=== PATIENT | female | born 1940 | race Caucasian/White ===

== ENCOUNTER → 2017-06-07 | Outpatient (CLI) | payer MEDICARE, BC ==
--- NOTE | 2017-06-07 15:28 | US ---
EXAMINATION TYPE: US pelvic complete DATE OF EXAM: 06/07/2017 COMPARISON: NONE CLINICAL HISTORY: 76-year-old female R19.00 pelvic mass. Status post KODY, BSO, patient states for pel gisselle mass that doctor palpated, large habitus, she has an obvious abd wall hernia inferior and rt of t he umbilicus TECHNIQUE: Transabdominal (TA) FINDINGS: Orthopedic Technician notes: Status post KODY/BSO. Limited TA pelvic scan, wnl, no free fluid seen, vag cuff wn l. Initial scanning over the obvious abd wall bulge. 2.2cm wide defect in the abdominal wall with a 10. 1 x 4.1 x 8.9 non-peristalsing hernia. Some internal fluid portions are noted. IMPRESSION: 1. No pelvic free fluid. Status post hysterectomy. 2. Targeted scanning along the patient's lower abdominal bulge shows a 10.1 cm nonperistalsing hernia through a 2.2 cm wide abdominal wall defect. There is suggestion of some fluid within the hernia sac . Correlate for hernia incarceration.
== END | disposition home or self-care (01) ==
LOC: RADUSWWP 14:26
PROVIDERS: ATTEND Internal Medicine
DX: K43.6 Other and unspecified ventral hernia with obstruction, without gangrene (principal); J44.9 Chronic obstructive pulmonary disease, unspecified; G47.33 Obstructive sleep apnea (adult) (pediatric); E11.9 Type 2 diabetes mellitus without complications; Z90.710 Acquired absence of both cervix and uterus
CPT/HCPCS: 76857

== ENCOUNTER 2020-09-25 09:09 | Emergency (ER) | payer MEDICARE, BC ==
[2020-09-25 09:37] LABS: Glucose,Whole Blood 104 mg/dL (75-99)
--- NOTE | 2020-09-25 09:43 | ED ---
General Adult HPI - General Chief complaint: Recheck/Abnormal Lab/Rx Stated complaint: Low Sugar, Poss Seizure Time Seen by Provider: 09/25/20 09:32 Source: patient, family, RN notes reviewed, old records reviewed Mode of arrival: wheelchair Limitations: no limitations - History of Present Illness Initial comments: 79-year-old female, insulin-dependent diabetic presenting with hypoglycemia. Patient had taken her normal morning insulin after a blood sugar reading of 200. She did not eatany breakfast. She began feeling shaky and became diaphoretic. They were in the car driving and stopped [place] [employer] and the blood sugar was 40. She was given oral glucose. She states she is feeling better. She denies oral hypoglycemic medications. She denies any recent illness, no chest pain or dyspnea. No abdominal pain nausea or vomiting. - Related Data Home Medications Medication Instructions Recorded Confirmed ALPRAZolam [Alprazolam Odt] 0.25 mg PO HS 07/15/14 07/19/15 Albuterol Inhaler (Mhu) [Ventolin 1 - 2 puff INHALATION Q4-6H PRN 07/15/14 07/19/15 Inhaler] Atorvastatin [Lipitor] 20 mg PO HS 07/15/14 07/19/15 Colesevelam [Welchol] 3,750 mg PO AC-BRKFST 07/15/14 07/19/15 Digoxin [Lanoxin] 125 mcg PO DAILY 07/15/14 07/19/15 Esomeprazole Magnesium [NexIUM] 40 mg PO DAILY 07/15/14 07/19/15 Fluticasone/Salmeterol [Advair 1 puff INHALATION Q12HR 07/15/14 07/19/15 100-50 Diskus] Gabapentin [Neurontin] 300 mg PO BID 07/15/14 07/19/15 Ipratropium Nebulized [Atrovent 0.5 mg INHALATION Q6HR 07/15/14 07/19/15 Nebulized 0.2 MG/ML] Pioglitazone HCl [Actos] 30 mg PO DAILY 07/15/14 07/19/15 Propafenone HCl [Rythmol] 240 mg PO DAILY 07/15/14 07/19/15 Quinapril HCl [Accupril] 40 mg PO DAILY 07/15/14 07/19/15 Sertraline HCl [Zoloft] 100 mg PO DAILY 07/15/14 07/19/15 Verapamil HCl [Verapamil ER] 240 mg PO DAILY 07/15/14 07/19/15 glyBURIDE [Diabeta] 10 mg PO AC-BID 07/15/14 07/19/15 metFORMIN HCL [Glucophage] 500 mg PO BID 07/15/14 07/19/15 Buprenorphine [Butrans] 1 each TRANSDERM WEEKLY 07/19/15 07/19/15 Cefuroxime Axetil [Cefuroxime] 500 mg PO BID 07/19/15 07/19/15 Previous Rx's Medication Instructions Recorded Hydrocodone/Acetaminophen [[place] 1 each PO Q4HR PRN #20 tab 07/15/14 5-325] Ciprofloxacin HCl [Cipro] 500 mg PO Q12HR #14 tablet 07/20/15 Ondansetron Odt [Zofran ODT] 4 mg PO Q8HR PRN #20 tab 07/20/15 Allergies Allergy/AdvReac Type Severity Reaction Status Date / Time diclofenac sodium Allergy Unknown Verified 09/25/20 09:26 [From [facility]] Review of Systems ROS Statement: Those systems with pertinent positive or pertinent negative responses have been documented in the HPI. ROS Other: All systems not noted in ROS Statement are negative. Past Medical History Past Medical History: COPD, Diabetes Mellitus, Hyperlipidemia, Hypertension Additional Past Medical History / Comment(s): spinal stenosis, knee pain, left ear infection History of Any Multi-Drug Resistant Organisms: None Reported Past Surgical History: Appendectomy, Cholecystectomy, Hysterectomy, Orthopedic Surgery Additional Past Surgical History / Comment(s): cervical laminectomy Past Psychological History: Depression Smoking Status: Never smoker Past Alcohol Use History: Occasional Past Drug Use History: None Reported General Exam Limitations: no limitations General appearance: alert, in no apparent distress Head exam: Present: atraumatic, normocephalic Eye exam: Present: normal appearance, PERRL ENT exam: Present: normal exam Neck exam: Present: normal inspection. Absent: tenderness, meningismus Respiratory exam: Present: normal lung sounds bilaterally. Absent: respiratory distress, wheezes Cardiovascular Exam: Present: regular rate, irregular rhythm GI/Abdominal exam: Present: soft. Absent: distended, tenderness, guarding Extremities exam: Present: normal inspection, normal capillary refill. Absent: pedal edema Neurological exam: Present: alert, oriented X3, CN II-XII intact. Absent: motor sensory deficit Psychiatric exam: Present: normal affect, normal mood Skin exam: Present: warm, dry, intact. Absent: cyanosis, diaphoretic Course Vital Signs 09/25/20 09:22 Temperature 98.1 F Pulse Rate 104 H Respiratory 18 Rate O2 Sat by Pulse 98 Oximetry Medical Decision Making - Medical Decision Making 79-year-old female with hypoglycemia secondary to taking insulin and not eating. Patient had oral glucose and was able to eat in the emergency department. She is feeling much better, no symptoms. Blood sugar is 100, this is stable. She will closely monitor her blood glucose over the next several hours. She will follow-up with her primary care physician regarding insulin dosing. - Lab Data Result diagrams: 09/25/20 09:52 09/25/20 09:52 Lab Results 09/25/20 09/25/20 09/25/20 Range/Units 09:32 09:52 09:52 WBC 11.8 H (3.8-10.6) k/uL RBC 4.58 (3.80-5.40) m/uL Hgb 13.8 (11.4-16.0) gm/dL Hct 43.9 (34.0-46.0) % MCV 95.8 (80.0-100.0) fL MCH 30.2 (25.0-35.0) pg MCHC 31.5 (31.0-37.0) g/dL RDW 14.1 (11.5-15.5) % Plt Count 245 (150-450) k/uL Neutrophils % 73 % Lymphocytes % 16 % Monocytes % 5 % Eosinophils % 4 % Basophils % 1 % Neutrophils # 8.7 H (1.3-7.7) k/uL Lymphocytes # 1.9 (1.0-4.8) k/uL Monocytes # 0.6 (0-1.0) k/uL Eosinophils # 0.4 (0-0.7) k/uL Basophils # 0.1 (0-0.2) k/uL Sodium 142 (137-145) mmol/L Potassium 3.8 (3.5-5.1) mmol/L Chloride 106 (98-107) mmol/L Carbon Dioxide 28 (22-30) mmol/L Anion Gap 8 mmol/L BUN 24 H (7-17) mg/dL Creatinine 1.22 H (0.52-1.04) mg/dL Est GFR (CKD-EPI)AfAm 49 (>60 ml/min/1.73 sqM) Est GFR (CKD-EPI)NonAf 43 (>60 ml/min/1.73 sqM) Glucose 84 (74-99) mg/dL POC Glucose (mg/dL) 104 H (75-99) mg/dL POC Glu User Experience Researcher ID Cathleen Engel Calcium 9.1 (8.4-10.2) mg/dL 09/25/20 Range/Units 10:19 WBC (3.8-10.6) k/uL RBC (3.80-5.40) m/uL Hgb (11.4-16.0) gm/dL Hct (34.0-46.0) % MCV (80.0-100.0) fL MCH (25.0-35.0) pg MCHC (31.0-37.0) g/dL RDW (11.5-15.5) % Plt Count (150-450) k/uL Neutrophils % % Lymphocytes % % Monocytes % % Eosinophils % % Basophils % % Neutrophils # (1.3-7.7) k/uL Lymphocytes # (1.0-4.8) k/uL Monocytes # (0-1.0) k/uL Eosinophils # (0-0.7) k/uL Basophils # (0-0.2) k/uL Sodium (137-145) mmol/L Potassium (3.5-5.1) mmol/L Chloride (98-107) mmol/L Carbon Dioxide (22-30) mmol/L Anion Gap mmol/L BUN (7-17) mg/dL Creatinine (0.52-1.04) mg/dL Est GFR (CKD-EPI)AfAm (>60 ml/min/1.73 sqM) Est GFR (CKD-EPI)NonAf (>60 ml/min/1.73 sqM) Glucose (74-99) mg/dL POC Glucose (mg/dL) 101 H (75-99) mg/dL POC Glu User Experience Researcher ID Maren Cathleen Calcium (8.4-10.2) mg/dL Disposition Clinical Impression: Hypoglycemia Disposition: HOME SELF-CARE Condition: Fair Instructions (If sedation given, give patient instructions): Hypoglycemia in a Person with Diabetes (ED) Is patient prescribed a controlled substance at d/c from ED?: No Referrals: Cedrick Ruiz MD [Primary Care Provider] - 1-2 days Time of Disposition: 10:31
[2020-09-25 10:00] LABS: Basophils # (A) 0.1 k/uL (0-0.2); Basophils % (A) 1 %; Eosinophils # (A) 0.4 k/uL (0-0.7); Eosinophils % (A) 4 %; HCT 43.9 % (34.0-46.0); HGB 13.8 gm/dL (11.4-16.0); Lymphocytes # (A) 1.9 k/uL (1.0-4.8); Lymphocytes % (A) 16 %; MCH 30.2 pg (25.0-35.0); MCHC 31.5 g/dL (31.0-37.0); MCV 95.8 fL (80.0-100.0); Mean Platelet Volume 7.2; Monocytes # (A) 0.6 k/uL (0-1.0); Monocytes % (A) 5 %; Neutrophils # (A) 8.7 k/uL (1.3-7.7); Neutrophils % (A) 73 %; Platelet Count 245 k/uL (150-450); RBC 4.58 m/uL (3.80-5.40); RDW 14.1 % (11.5-15.5); WBC 11.8 k/uL (3.8-10.6)
[2020-09-25 10:10] LABS: Calcium 9.1 mg/dL (8.4-10.2); Potassium 3.8 mmol/L (3.5-5.1)
[2020-09-25 10:20] LABS: Glucose,Whole Blood 101 mg/dL (75-99)
[2020-09-25 10:51] VITALS: BP 143/79; PULSE 62; RESP 16; TEMP 97.9
== END 2020-09-25 10:52 | disposition home or self-care (01) ==
LOC: EC 09:09
DX: E11.649 Type 2 diabetes mellitus with hypoglycemia without coma (principal); E78.5 Hyperlipidemia, unspecified; I10 Essential (primary) hypertension; F32.9 Major depressive disorder, single episode, unspecified; J44.9 Chronic obstructive pulmonary disease, unspecified; Z79.51 Long term (current) use of inhaled steroids; Z79.84 Long term (current) use of oral hypoglycemic drugs; Z79.899 Other long term (current) drug therapy; Z88.8 Allergy status to other drugs, medicaments and biological substances
CPT/HCPCS: 36415; 80048; 85025; 99285

== ENCOUNTER → 2021-01-08 | Outpatient (CLI) | payer MEDICARE, BC ==
--- NOTE | 2021-01-09 11:01 | MM ---
Reason for exam: additional evaluation requested from prior study. History: Patient has history of other cancer at age 72. Family history of breast cancer in mother at age 47. Lumpectomy of the right breast, 2011. Lumpectomy of the right breast, 1992. Radiation therapy of the right breast, 1992. Took hormonal contraceptives for 2 months beginning at age 27. Physical Findings: Nurse did not find any significant physical abnormalities on exam. MG 3D Diag Mammo W/Cad [facility] Bilateral CC and MLO view(s) were taken. No prior studies available for comparison. Previous mammotome biopsy in the right breast. Benign oil cyst calcifications bilaterally. Post surgical deformity and post therapy change right breast. 3.2cm partially visualized high density round structure posteriorly seen to be laterally located based on 3D images but could not be included on the CC view. These results were verbally communicated with the patient and result sheet given to the patient on 01/08/21. ASSESSMENT: Incomplete: need additional imaging evaluation, BI-RAD 0 RECOMMENDATION: Ultrasound of the right breast.
--- NOTE | 2021-01-09 11:09 | USB ---
Reason for exam: additional evaluation requested from abnormal screening. History: Patient has history of other cancer at age 72. Family history of breast cancer in mother at age 47. Lumpectomy of the right breast, 2011. Lumpectomy of the right breast, 1992. Radiation therapy of the right breast, 1992. Took hormonal contraceptives for 2 months beginning at age 27. US Breast RT Right complete breast ultrasound includes all four quadrants, the retroareolar region and axilla. Finding demonstrates a 3.2 x 2.5 x 3.1cm hypoechoic lesion at 10-11 o'clock corresponds to the mammographic finding. Biopsy recommended. Patient with history, two prior concerns in the same breast. Outside priors not available. These results were verbally communicated with the patient and result sheet given to the patient on 01/08/21. ASSESSMENT: Suspicious, BI-RAD 4 RECOMMENDATION: Ultrasound core biopsy of the right breast. Called Dr. Ruiz's office with mammographic findings and has scheduled an appointment for the patient for 02/06/21 at 10:[address] Kemp. Biopsy scheduled for 02/06/21 at 1:00. PRELIMINARY REPORT CALLED AND FAXED TO DR. KEMP ON 01/09/21.
== END | disposition home or self-care (01) ==
LOC: RADMAMWWP 14:47
PROVIDERS: ATTEND Internal Medicine
DX: R92.8 Other abnormal and inconclusive findings on diagnostic imaging of breast (principal); Z85.3 Personal history of malignant neoplasm of breast
CPT/HCPCS: 77066; 76641; G0279; 77062

== ENCOUNTER → 2021-02-06 | Outpatient (CLI) | payer MEDICARE, BC ==
[2021-02-06 10:18] VITALS: BP 144/82; RESP 20; TEMP 98.3
--- NOTE | 2021-02-06 10:57 | P.GSHP ---
History of Present Illness H&P Date: 02/06/21 Chief Complaint: mammographic abnormality right breast Preeti is a 80 year old white female seen in consultation for Dr. Flores. She had a bilateral diagnostic mammogram on . This revealed a postsurgical deformity and post therapy change in the right breast. 3.2 cm partially visualized high-density round structure was seen. An ultrasound of the right breast was recommended. Ultrasound recommended a 3.2 x 3.1 cm hypoechoic lesion at the 10 to 11:00 region corresponding to the mammographic finding. Biopsy was recommended. The patient in the past underwent a right breast lumpectomy and radiation therapy in 1992. She had a repeat resection in 2011 in the right breast which was also cancer. She did not have any radiation the second time. She has not had any chemotherapy. She has not had any hormonal therapy. She is uncertain as to the size of the tumor. She has not had any lymph node involvement. She's never had any evidence of spread. She does have some fullness in her breast in the lateral aspect in the right breast which is increased in the last 6 months. Prior to this she had some fullness after the lumpectomy in 2011 in the upper aspect of the breast which resolved after draining it. This procedure was done in [place]. Patient's mammogram was reviewed with radiology and it appears that on prior mammogram the area of density was present as well. Caffeine: several glasses of ice tea daily nicotine:G3 1/PPD for 50 years, stopped 11 years ago chocolate: occasional Family History: mother: breast cancer, at 46 father: prostate cancer brother: lung cancer Hormonal history: Menarche: 17 , miscarriage, breast fed: yes, age at first : 28 menopause: 46, hysterectomy took ovaries during menopause BCP: 2 months hormones: "massive doses" 4 years prior to hysterectomy, stopped in early 50's Surgical history: 1. Hysterectomy bilateral vasectomy 2. Right breast lumpectomy, done twice she did not have any sentinel node or axillary node resection 3. cervical laminectomy 4. gallbladder 5. appy 6. sinus 7. bone graft hip to arm 8. kidney stones 9. rotator cuff right side twice Medical History: 1. COPD 2. kidney disease 3. diabetes 4. macular degeneration 5. A-fib 6. spinal stenosis Social History: Nicotine: Negative Alcohol: Occasional Drugs: Negative - Constitutional Constitutional: Reports sweats - EENT Comment: macular degeneration Ears: bilateral: decreased hearing (hearing aid bilateral), deny: tinnitus Ears, nose, mouth and throat: Denies headache, Denies sore throat - Breasts Breasts: bilateral: as per HPI - Cardiovascular Cardiovascular: Denies chest pain, Denies shortness of breath - Respiratory Comment: sleep apnea, COPD - Gastrointestinal Gastrointestinal: Denies abdominal pain, Denies diarrhea, Denies nausea, Denies vomiting - Genitourinary (Female) Genitourinary: Reports kidney stones - Menstruation Menstruation: Reports post hysterectomy - Musculoskeletal Comment: arthritis, uses a walker, spinal stenosis Musculoskeletal: Reports as per HPI - Integumentary Integumentary: Reports pruritus - Neurological Comment: Diabetic neuropathy with her feet - Psychiatric Psychiatric: Reports depression - Endocrine Endocrine: Denies fatigue, Denies weight change - Hematologic/Lymphatic Comment: takes eloquis - Allergic/Immunologic Allergic/Immunologic: Reports seasonal allergies Past Medical History Past Medical History: Atrial Fibrillation, COPD, Diabetes Mellitus, Hyperlipidemia, Hypertension Additional Past Medical History / Comment(s): spinal stenosis, knee pain, left ear infection, home oxygen 3L, macular degeneration, right breast cancer History of Any Multi-Drug Resistant Organisms: None Reported Past Surgical History: Appendectomy, Breast Surgery, Cholecystectomy, Hysterectomy, Orthopedic Surgery Additional Past Surgical History / Comment(s): cervical laminectomy, bone graft arm, kidney stone removed, right breast lumpectomy x2 with radiation Past Psychological History: Depression Smoking Status: Former smoker Past Alcohol Use History: Occasional Past Drug Use History: None Reported Medications and Allergies Home Medications Medication Instructions Recorded Confirmed Type ALPRAZolam [Alprazolam Odt] 0.25 mg PO HS PRN 07/15/14 01/28/21 History Albuterol Inhaler (Mhu) [Ventolin 1 - 2 puff INHALATION TID 07/15/14 01/28/21 History Inhaler] Atorvastatin [Lipitor] 20 mg PO HS 07/15/14 01/28/21 History Ipratropium Nebulized [Atrovent 0.5 mg INHALATION TID PRN 07/15/14 01/28/21 His tory Nebulized 0.2 MG/ML] Sertraline HCl [Zoloft] 50 mg PO TID 07/15/14 01/28/21 History glyBURIDE [Diabeta] 4 mg PO DAILY 07/15/14 01/28/21 History Apixaban [Eliquis] 2.5 mg PO BID 01/28/21 01/28/21 History Cetirizine HCl [Zyrtec] 10 mg PO DAILY 01/28/21 01/28/21 History Cyanocobalamin [Vitamin B-12] 1,000 mcg PO DAILY 01/28/21 01/28/21 History Empagliflozin [Jardiance] 25 mg PO DAILY 01/28/21 01/28/21 History Fluticasone Propion/Salmeterol 1 puff PO TID 01/28/21 01/28/21 History [Wixela 100-50 Inhub] Latanoprost Ophth [Xalatan 0.005%] 1 drops BOTH EYES HS 01/28/21 01/28/21 History Metoprolol Tartrate [Lopressor] 25 mg PO BID 01/28/21 01/28/21 History Montelukast [Singulair] 10 mg PO HS 01/28/21 01/28/21 History Roflumilast [Daliresp] 500 mcg PO DAILY 01/28/21 01/28/21 History Vit C/E/Zn/Coppr/Lutein/Zeaxan 1 each PO DAILY 01/28/21 01/28/21 History [Preservision Areds 2 Softgel] Vitamin B Complex/Folic Acid 0.4 mg PO DAILY 01/28/21 01/28/21 History [Vitamin B Complex Tablet] traZODone HCL 50 mg PO HS 01/28/21 01/28/21 History Allergies Allergy/AdvReac Type Severity Reaction Status Date / Time diclofenac sodium Allergy Unknown Verified 02/06/21 10:15 [From Voltaren] adhesive tape AdvReac Rash/Hives Verified 02/06/21 10:15 Surgical - Exam Vital Signs Temp Resp BP Pulse Ox 98.3 F 20 144/82 96 02/06/21 10:15 02/06/21 10:15 02/06/21 10:15 02/06/21 10:15 BMI 33.3 - General no distress - Eyes normal ocular movement - ENT normal nares - Neck no masses, trachea midline - Respiratory oxygen dependant, decreased breath sounds at the bases - Cardiovascular Heart Sounds: normal: S1, S2 - Abdomen Abdomen: soft - Integumentary normal turgor - Neurologic no disoriented, no combative - Musculoskeletal uses a walker - Psychiatric oriented to time, oriented to person, oriented to place, speech is normal, memory intact Breat exam: BRA: 38B Inspection: Right breast distorted secondary to prior lumpectomy 2 and radiation therapy, left breast grade 2/3 ptosis Palpation: Right breast: Postop changes noted, mass in the mid and upper outer quadrant area mobile, no other dominant masses or nodules of concern Right axilla: No adenopathy of concern Left breast: Fibrocystic changes, no dominant masses or nodules of concern Left axilla: No adenopathy of concern Results Mammogram and ultrasound results reviewed in person with radiologist Dr. Brown, these appeared to be stable from prior mammograms Assessment and Plan Assessment: Impression: 1. COPD 2. kidney disease 3. diabetes 4. macular degeneration 5. A-fib/on eloquis 6. spinal stenosis 7. Patient status post lumpectomy right breast 2, once in 1992 and once in 2011, she had radiation therapy after the first time, she has not had any chemo or hormonal therapy, we do not have the stage of the disease 8. Patient has not had any axillary surgery 9. Change in mass right breast over the past 6 months Plan: 1. Will obtain pathology report from prior surgery 2. Ultrasound core biopsy lesion in right breast 3. Follow-up after ultrasound core biopsy Cc: Dr. Joseph vines 45 minutes, time spent in reviewing medical records, physical examination, and counselling. Ultrasound core biopsy was discussed with the patient. Risks include but are not limited to bleeding, infection, reaction to the anesthetic. Sampling error was also discussed. The patient understands the lesion has been there for some time on her mammogram, and if she wished we could consider close surveillance in 6 months. She states that she is ready for the procedure today and would like to proceed with the procedure.
== END ==
LOC: WWCWWP 09:43
PROVIDERS: ATTEND Surgery
DX: N63.11 Unspecified lump in the right breast, upper outer quadrant (principal); J44.9 Chronic obstructive pulmonary disease, unspecified; E11.9 Type 2 diabetes mellitus without complications; H35.30 Unspecified macular degeneration; I48.91 Unspecified atrial fibrillation; M48.00 Spinal stenosis, site unspecified; N28.9 Disorder of kidney and ureter, unspecified; E78.5 Hyperlipidemia, unspecified; I10 Essential (primary) hypertension; F32.9 Major depressive disorder, single episode, unspecified; Z79.51 Long term (current) use of inhaled steroids; Z79.02 Long term (current) use of antithrombotics/antiplatelets; Z79.84 Long term (current) use of oral hypoglycemic drugs; Z79.899 Other long term (current) drug therapy; Z87.891 Personal history of nicotine dependence; Z98.890 Other specified postprocedural states; Z92.3 Personal history of irradiation

== ENCOUNTER → 2021-02-06 | Day surgery (SDC) | payer MEDICARE, BC ==
[2021-02-06 12:52] VITALS: PULSE 80; RESP 12
--- NOTE | 2021-02-06 13:33 | USB ---
EXAMINATION TYPE: US biopsy breast VAD RT DATE OF EXAM: 02/06/2021 CLINICAL HISTORY: R92.8 ABN MAMMO. TECHNIQUE: Ultrasound guided core biopsy of right breast. Request for 11:00 right breast lesion core biopsy COMPARISON: NONE FINDINGS: The procedure of ultrasound guided core biopsy was explained to the patient. Benefits, alternatives, and risks were discussed. An informed consent was then obtained. The patient was placed in supine positioning for imaging and for the procedure. The overlying skin was prepped and draped in usual sterile fashion. Lidocaine buffered with bicarbonate was used as anesthetic into the skin and subcutaneous tissue up to area of concern in the right breast. A kyung was made with surgical scalpel. Under ultrasound guidance, a 12-gauge vacuum assisted biopsy gun device was used to obtain 3 core samples. Following this, a biopsy clip was left in lesion. Note is made that the lesion appeared to be predominantly fluid and this appears post biopsy. The patient tolerated the procedure well without any immediate complication. The patient was kept in the radiology department for short stay after the procedure and then discharged home in stable condition. IMPRESSION: Successful, uncomplicated ultrasound guided core biopsy of area of concern in the right breast, full pathology results to follow. Pathology Results: Benign RIGHT BREAST, CORE BIOPSY: Benign fibrotic cyst with apocrine metaplasia, focal acute and chronic inflammation and focal punctate microcalcification. Recommendation Follow up mammogram of the right breast in 6 months. [facility]
--- NOTE | 2021-02-06 13:37 | MM ---
Reason for exam: additional evaluation requested from abnormal screening. Last mammogram was performed 1 month ago. History: Patient has history of other cancer at age 72. Family history of breast cancer in mother at age 47. Lumpectomy of the right breast, 2011. Lumpectomy of the right breast, 1992. Radiation therapy of the right breast, 1992. Took hormonal contraceptives for 2 months beginning at age 27. MG Diagnostic Mammo RT Wo CAD CC and ML view(s) were taken of the right breast. Prior study comparison: January 08, 2021, bilateral MG 3d diag mammo w/cad [facility]. ASSESSMENT: Post procedure mammogram for marker placement RECOMMENDATION: Ultrasound of the right breast in 6 months. PENDING PATHOLOGY RESULTS.
[2021-02-06 13:50] VITALS: BP 156/74; TEMP 98.7
== END ==
LOC: RADUSWWP 12:25
PROVIDERS: ATTEND Surgery
DX: N60.11 Diffuse cystic mastopathy of right breast (principal); N60.81 Other benign mammary dysplasias of right breast; R92.0 Mammographic microcalcification found on diagnostic imaging of breast; R92.8 Other abnormal and inconclusive findings on diagnostic imaging of breast; Z88.6 Allergy status to analgesic agent; Z91.09 Other allergy status, other than to drugs and biological substances
CPT/HCPCS: 88305; 77065; 19083; A4648; J2001

== ENCOUNTER → 2021-02-13 | Outpatient (CLI) | payer MEDICARE, BC ==
[2021-02-13 10:11] VITALS: BP 146/82; PULSE 130; RESP 18; TEMP 97.8
--- NOTE | 2021-02-13 10:26 | P.PN ---
Subjective Progress Note Date: 02/13/21 Principal diagnosis: seroma right breast Preeti is a 80 year old white female who in the past underwent a right breast lumpectomy and radiation therapy. She had repeat resection in 2011 in the right breast which was also malignancy as per the patient. She did not have any radiation the second time. She has not had any chemotherapy. She has not had any hormonal therapy. She underwent a ultrasound core biopsy of an area of concern in the right breast on . This revealed fibrocystic fluid and was benign fibrotic cyst with apocrine metaplasia, focal acute and chronic inflammation and focal punctate microcalcification. The patient tolerated the procedure without difficulty. Caffeine: Several glasses of ice tea daily Nicotine: Stopped smoking 11 years ago Chocolate: Occasional Family history: Motor: Breast cancer 46 Father: Prostate cancer Brother: Lung cancer Surgical history: Hysterectomy Right breast lumpectomy twice did not have sentinel node or axillary node resection Cervical laminectomy Cholecystectomy Appendectomy Sinus surgery Bone graft hip tomorrow Kidney stones Rotator cuff right side twice Medical history: COPD Kidney disease Diabetes Macular degeneration A. fib Spinal stenosis Social history: Nicotine: Negative Alcohol: Occasional Drugs: Negative Objective - Vital Signs Vital signs: Intake & Output 02/12/21 02/13/21 02/13/21 18:59 06:59 18:59 Weight 95.254 kg - Exam BMI 34.9 - Constitutional General appearance: Present: average body habitus - EENT Eyes: Present: EOMI ENT: Present: hearing grossly normal - Neck Neck: Present: normal ROM - Respiratory Details: decreased breath sounds at bases - Cardiovascular Details: heart rate fluctuating between 67 to 130 BP stable Heart sounds: normal: S1, S2 - Integumentary Integumentary Comment(s): no evidence of infection or hematoma - Musculoskeletal Musculoskeletal Comment(s): uses a walker - Psychiatric Psychiatric: Present: A&O x's 3, appropriate affect Assessment and Plan Assessment: Impression: 1. COPD 2. kidney disease 3. macular degeneration 4. A-Fib on eloquis/heart rate today between 60 and 1:30 5. spinal stenosis 6. Patient status post lumpectomy right breast 2, first in 1992 and then in 2011. She had radiation therapy after the first time, she has not had any chemo or hormonal therapy, most recent ultrasound core biopsy benign as stated Plan: 1. I have cause cardiology and patient is going to be seen by cardiology when she leaves our office secondary to the irregular heart rate 2. Repeat right breast mammogram and ultrasound in 6 months with physician exam at that time 3. Follow up sooner if any questions or concerns 4. Continue follow with Dr. Ruiz regarding medical care I have contacted and discussed her irregular heartbeat with Dr. orlando from cardiology. He is going to see her in evaluation when she leaves our office. I have also called Dr. Ruiz's office to elt them know about her condition today. Cc: Dr. Ruzi
== END ==
LOC: WWCWWP 09:53
PROVIDERS: ATTEND Surgery
DX: J44.9 Chronic obstructive pulmonary disease, unspecified (principal); H35.30 Unspecified macular degeneration; I48.91 Unspecified atrial fibrillation; N28.9 Disorder of kidney and ureter, unspecified; M48.00 Spinal stenosis, site unspecified; Z98.890 Other specified postprocedural states; Z87.891 Personal history of nicotine dependence

== ENCOUNTER → 2021-05-07 | Outpatient (CLI) | payer MEDICARE, BC ==
--- NOTE | 2021-05-08 08:00 | CT ---
EXAMINATION TYPE: CT chest w con DATE OF EXAM: 05/07/2021 COMPARISON: Chest CT June 12, 2016 HISTORY: Left sided rib pain after fall 2 1/[address] DLP: 615 mGycm. Automated Exposure Control for Dose Reduction was Utilized. TECHNIQUE: CT scan of the thorax is performed following with IV Contrast, patient injected with 80 m L of Isovue 300. FINDINGS: LUNGS: Moderate underlying emphysematous changes redemonstrated. Focal linear scarring right midlung anteriorly axial image 33 redemonstrated. [id number] left basilar linear scarring just above di aphragm again seen. No new focal consolidation or groundglass opacity. No pleural effusion or pneumot horax seen bilaterally. MEDIASTINUM: There are prominent but subcentimeter right hilar and subcarinal lymph nodes. Mild card iomegaly. Lipomatous hypertrophy of the intra-arterial septum. Moderate right atrial dilatation. Mild to moderate left atrial and left ventricular dilatation. Calcification level of mitral and aortic v armenta. No pericardial effusion is seen. Enlarged pulmonary arteries, CT findings consistent with und erlying pulmonary artery hypertension is redemonstrated. Adjacent ascending aorta measures up to 3.4 cm in diameter. Mild to moderate calcified plaque of the aorta extends into branch vessels. OTHER: Cholecystectomy clips. Nonspecific 1.1 cm low dense lesion lateral spleen document 53 favor be nign etiology. Surgical changes right breast with thin-walled 2.9 x 2.2 cm fluid collection axial cesar ge 24 favoring postsurgical seroma. This is decreased in size from prior. Ueas-hp-[id number] multilevel spurring in the spine. Posterior spurring effaces the anterior thecal sac sagittal image 65 midthora cic levels. There are acute mildly displaced fractures through the anterior left sixth rib series 3 image 37 and seventh ribs series 3 image 44. IMPRESSION: 1. Acute minimally displaced fractures anterior left sixth rib and anterolateral left seventh rib. 2. Moderate emphysematous change with [id number] scattered pulmonary fibrotic changes. No acute pulmonary process.
== END | disposition home or self-care (01) ==
LOC: RADCTMAIN 17:21
PROVIDERS: ATTEND Nurse Practitioner Adult Health
DX: S22.42XA Multiple fractures of ribs, left side, initial encounter for closed fracture (principal); J43.9 Emphysema, unspecified; J84.10 Pulmonary fibrosis, unspecified; W19.XXXA Unspecified fall, initial encounter
CPT/HCPCS: 82565; 84520; 71260; 36415; Q9967

== ENCOUNTER → 2021-06-09 | Outpatient (CLI) | payer MEDICARE, BC ==
--- NOTE | 2021-06-09 13:18 | US ---
EXAMINATION TYPE: US kidneys/renal and bladder DATE OF EXAM: 06/09/2021 COMPARISON: CT 07/20/2015 CLINICAL HISTORY: N18.30 Chronic Kidney disease stage 3. CKD EXAM MEASUREMENTS: Right Kidney: 10.5 x 5.1 x 5.5 cm Left Kidney: 11.2 x 5.1 x 5.1 cm Right Kidney: No evidence of hydro Left Kidney: No evidence of hydro Bladder: wnl Bilateral Jets seen: No There is no evidence for hydronephrosis at this point in time. No nephrolithiasis is seen. No mike s are identified. The urinary bladder is anechoic. IMPRESSION: Unremarkable kidneys. Bilateral ureteral jets were not visualized.
== END | disposition home or self-care (01) ==
LOC: RADUSWWP 12:43
PROVIDERS: ATTEND Internal Medicine
DX: N18.30 Chronic kidney disease, stage 3 unspecified (principal)
CPT/HCPCS: 76770

== ENCOUNTER 2021-07-16 14:42 | Emergency (ER) | payer MEDICARE, BC ==
[2021-07-16] MEDS ORDERED: LIDOCAINE 1%-EPI 1:100,000 20 ML VIAL SQ STA (16:21)
[2021-07-16] MEDS ORDERED: DIPH,PERTUS(ACELL)TETVAC-LF 0.5 ML VIAL IM ONE (16:21)
[2021-07-16] MEDS ORDERED: oxyCODONE-APAP 5-325MG 1 EACH TAB PO STA (16:21)
--- NOTE | 2021-07-16 16:42 | ED ---
Fall HPI - General Chief Complaint: Fall Stated Complaint: Fall/lt leg injury Time Seen by Provider: 07/16/21 16:07 Source: patient, family Mode of arrival: EMS - History of Present Illness Initial Comments: 80-year-old female presents to the emergency department with a chief complaint of fall. Patient reports this occurred about one hour prior to arrival. Patient reports she was in a roller chair when she slipped and fell mostly on the left side of her body. She reports a large soft tissue injury to the lateral aspect of the left lower extremity. States there was quite a bit of bleeding and dressing was applied by EMS. Patient states she is on blood thinners. Reports pain at the injury site. She does report some pain to the shoulder and the left hip. However, states she is primarily concerned for a laceration. Tetanus is up-to-date. She is diabetic. She denies any head injury or loss of consciousness. - Related Data Home Medications Medication Instructions Recorded Confirmed ALPRAZolam [Alprazolam Odt] 0.25 mg PO HS PRN 07/15/14 02/13/21 Albuterol Inhaler (Mhu) [Ventolin 1 - 2 puff INHALATION TID 07/15/14 02/13/21 Inhaler] Atorvastatin [Lipitor] 20 mg PO HS 07/15/14 02/13/21 Ipratropium Nebulized [Atrovent 0.5 mg INHALATION TID PRN 07/15/14 02/13/21 Nebulized 0.2 MG/ML] Sertraline HCl [Zoloft] 50 mg PO TID 07/15/14 02/13/21 Apixaban [Eliquis] 2.5 mg PO BID 01/28/21 02/13/21 Cetirizine HCl [Zyrtec] 10 mg PO DAILY 01/28/21 02/13/21 Cyanocobalamin [Vitamin B-12] 1,000 mcg PO DAILY 01/28/21 02/13/21 Fluticasone Propion/Salmeterol 1 puff PO TID 01/28/21 02/13/21 [Wixela 100-50 Inhub] Latanoprost Ophth [Xalatan 0.005%] 1 drops BOTH EYES HS 01/28/21 02/13/21 Metoprolol Tartrate [Lopressor] 25 mg PO BID 01/28/21 02/13/21 Montelukast [Singulair] 10 mg PO HS 01/28/21 02/13/21 Roflumilast [Daliresp] 500 mcg PO DAILY 01/28/21 02/13/21 Vit C/E/Zn/Coppr/Lutein/Zeaxan 1 each PO DAILY 01/28/21 02/13/21 [Preservision Areds 2 Softgel] Vitamin B Complex/Folic Acid 0.4 mg PO DAILY 01/28/21 02/13/21 [Vitamin B Complex Tablet] traZODone HCL 50 mg PO HS 01/28/21 02/13/21 Cholecalciferol [Vitamin D3 (25 25 mcg PO DAILY 02/06/21 02/13/21 Mcg = 1000 Iu)] Diltiazem Cd [Cardizem Cd] 120 mg PO DAILY 02/06/21 02/13/21 Glimepiride [Amaryl] 4 mg PO AC-BRKFST 02/06/21 02/13/21 INSULIN LISPRO (humaLOG) [humaLOG] 0 units SQ DIRECTED 02/06/21 02/13/21 Insulin Glargine [Lantus] 0 unit SQ DAILY 02/06/21 02/13/21 Previous Rx's Medication Instructions Recorded Cephalexin [Keflex] 500 mg PO TID #21 cap 07/16/21 Allergies Allergy/AdvReac Type Severity Reaction Status Date / Time diclofenac sodium Allergy Unknown Verified 07/16/21 15:40 [From Voltaren] adhesive tape AdvReac Rash/Hives Verified 07/16/21 15:40 Review of Systems ROS Statement: Those systems with pertinent positive or pertinent negative responses have been documented in the HPI. ROS Other: All systems not noted in ROS Statement are negative. Past Medical History Past Medical History: Atrial Fibrillation, COPD, Diabetes Mellitus, Hyperlipidemia, Hypertension Additional Past Medical History / Comment(s): spinal stenosis, knee pain, left ear infection, home oxygen 3L, macular degeneration, right breast cancer History of Any Multi-Drug Resistant Organisms: None Reported Past Surgical History: Appendectomy, Breast Surgery, Cholecystectomy, Hysterectomy, Orthopedic Surgery Additional Past Surgical History / Comment(s): cervical laminectomy, bone graft arm, kidney stone removed, right breast lumpectomy x2 with radiation Past Psychological History: Depression Smoking Status: Former smoker Past Alcohol Use History: Occasional Past Drug Use History: None Reported - Past Family History Mother Additional Family Medical History / Comment(s): breast ca General Exam Limitations: no limitations General appearance: alert, in no apparent distress Head exam: Present: atraumatic, normocephalic, normal inspection Eye exam: Present: normal appearance, PERRL Pupils: Present: normal accommodation ENT exam: Present: normal exam, normal oropharynx, mucous membranes moist Neck exam: Present: normal inspection, full ROM. Absent: tenderness, lymphadenopathy Respiratory exam: Present: normal lung sounds bilaterally. Absent: respiratory distress, wheezes, rales, rhonchi, stridor Cardiovascular Exam: Present: regular rate, normal rhythm, normal heart sounds Extremities exam: Present: full ROM, tenderness (Tenderness at laceration site), normal capillary refill. Absent: normal inspection (Large skin lacerations measure approximately 20 cm) Back exam: Present: normal inspection, full ROM. Absent: tenderness Neurological exam: Present: alert, oriented X3 Psychiatric exam: Present: normal affect, normal mood Skin exam: Present: warm, dry, intact, normal color Course Vital Signs 07/16/21 07/16/21 07/16/21 15:33 16:54 18:12 Temperature 98.2 F 98.0 F Pulse Rate 95 97 81 Respiratory 17 20 20 Rate Blood Pressure 150/96 152/107 146/92 O2 Sat by Pulse 95 99 99 Oximetry Medical Decision Making - Medical Decision Making 80-year-old female presents to the emergency department with a chief complaint of fall. Patient also has history of COPD and is oxygen dependent at 3 L here. Here she has a large laceration measuring approximately 25-30 cm on the lateral aspect of the left leg. Laceration site was thoroughly irrigated with saline water. She was also given analgesics and tetanus was updated. Patient was also given 1 g Rocephin and will be discharged with Keflex at size of the injury. I was able to close the wound even though her skin was thin. There was some tears to the skin. Total of 15 horizontal and simple interrupted sutures. Steri- Strips were also applied to hold the skin together. I did apply ABDs pad and gauze. I did offer imaging of the shoulder hip and knee patient declined. Patient is an eloquent so she is prone to bleeding. Strict return parameters were thoroughly discussed the patient understanding and agreeable. Case discussed with Dr. Guaman. Disposition Clinical Impression: Fall, Laceration Disposition: HOME SELF-CARE Condition: Stable Instructions (If sedation given, give patient instructions): Care For Your Stitches (DC), Laceration (DC), Fall Prevention (ED) Additional Instructions: Please return to the emergency room in 14 days to have sutures removed. Please watch for any signs of infection which may include increased pain, swelling, redness, fever or chills. Please return to emergency room for any signs of infection do occur. Please use clean soap and water over the area to prevent scabbing over your stitches. Please leave wound covered for the first 24-48 hours and then leave wound open to air. Please return to the emergency room for any other concerns. Prescriptions: Cephalexin [Keflex] 500 mg PO TID #21 cap Is patient prescribed a controlled substance at d/c from ED?: No Referrals: Cedrick Ruiz MD [Primary Care Provider] - 1-2 days Time of Disposition: 17:43
[2021-07-16] MEDS ORDERED: LIDOCAINE 1% INJ 10MG/ML (20 ML MDV) SQ STA (17:00)
[2021-07-16 17:22] VITALS: RESP 20
[2021-07-16] MEDS ORDERED: cefTRIAXone 1,000 MG VIAL (IM USE) IM STA (17:42)
[2021-07-16] MEDS ORDERED: ACET/COD 300 MG/30 MG STARTER PACK 6 TAB BTL PO STA (17:42)
[2021-07-16 18:13] VITALS: BP 146/92; PULSE 81; TEMP 98
== END 2021-07-16 18:27 | disposition home or self-care (01) ==
LOC: EC 14:42
DX: S81.812A Laceration without foreign body, left lower leg, initial encounter (principal); Z23 Encounter for immunization; I10 Essential (primary) hypertension; I48.91 Unspecified atrial fibrillation; J44.9 Chronic obstructive pulmonary disease, unspecified; E11.9 Type 2 diabetes mellitus without complications; E78.5 Hyperlipidemia, unspecified; F32.9 Major depressive disorder, single episode, unspecified; Z90.11 Acquired absence of right breast and nipple; Z90.49 Acquired absence of other specified parts of digestive tract; Z90.710 Acquired absence of both cervix and uterus; Z99.81 Dependence on supplemental oxygen; Z79.01 Long term (current) use of anticoagulants; Z79.4 Long term (current) use of insulin; Z87.891 Personal history of nicotine dependence; W07.XXXA Fall from chair, initial encounter
CPT/HCPCS: 99283; 96372; 90471; 12007; 90715; J2001; J0696

== ENCOUNTER 2021-09-03 12:30 | Inpatient (IN) | payer MEDICARE, BC ==
[2021-09-03] MEDS ORDERED: MORPHINE SULFATE 4 MG/ML SYRINGE IVP STA (13:08)
--- NOTE | 2021-09-03 13:19 | ED ---
General Adult HPI - General Chief complaint: Wound/Laceration Stated complaint: Wound,Lower LT Leg Time Seen by Provider: 09/03/21 12:49 Source: patient Mode of arrival: wheelchair Limitations: no limitations - History of Present Illness Initial comments: Dictation was produced using [employer] dictation software. please excuse any grammatical, word or spelling errors. Chief Complaint: 80-year-old female presents to emergency Department from wound clinic for pain to the left lower extremity History of Present Illness: Is 80-year-old female she is here today after being referred from the wound clinic for pain and possible worsening infection to the left lower extremity. Patient has a a subacute wound to the left lower extremity. 8 weeks ago she had an injury to the left lower extremity that caused degloving to the left lower extremity in the tibial area. Attempt was made to suture the skin over to provide healing however the skin was devitalized. Patient has been followed up at the wound clinic for dressing changes and wound management. She was seen at the wound clinic and was transferred to the emergency room for concern of lower extremity infection. Patient denies any constitutional symptoms. States that her pain has been steadily getting worse. She has pain medications however hasn't been taken out because of fear of running out. The ROS documented in this emergency department record has been reviewed and confirmed by me. Those systems with pertinent positive or negative responses have been documented in the HPI. All other systems are other negative and/or noncontributory. PHYSICAL EXAM: General Impression: Alert and oriented x3, not in acute distress HEENT: Normocephalic atraumatic, extra-ocular movements intact, pupils equal and reactive to light bilaterally, mucous membranes moist. Cardiovascular: Heart regular rate and rhythm Chest: Able to complete full sentences, no retractions, no tachypnea Motor: no focal deficits noted Neurological: CN II-XII grossly intact, no focal motor or sensory deficits noted Left lower extremity: There is a large 20 by a 5 cm wound to the left lateral ti bial area. There is fibrinous and well-appearing granulation tissue. Psych: Normal affect and mood ED course: 80-year-old female with worsening left lower extremity wound. She was sent from the wound clinic for concerns of wound infection. Vital signs upon arrival are within acceptable limits. Dr. Ramirez from the wound clinic spoke with my colleague Dr. Honeycutt and requested that patient be admitted for pain control and IV antibiotics and general surgery consult. Laboratory evaluation obtained. Mild leukocytosis of 13.4. Metabolic panel shows slight dehydration. Covered negative. Patient started on vancomycin. Patient has no features of sepsis. Patient be admitted to [facility]. - Related Data Home Medications Medication Instructions Recorded Confirmed Atorvastatin [Lipitor] 20 mg PO HS 07/15/14 09/03/21 Apixaban [Eliquis] 2.5 mg PO BID 01/28/21 09/03/21 Cetirizine HCl [Zyrtec] 10 mg PO DAILY 01/28/21 09/03/21 Cyanocobalamin [Vitamin B-12] 1,000 mcg PO DAILY 01/28/21 09/03/21 Latanoprost Ophth [Xalatan 0.005%] 1 drop BOTH EYES HS 01/28/21 09/03/21 Montelukast [Singulair] 10 mg PO HS 01/28/21 09/03/21 Roflumilast [Daliresp] 500 mcg PO DAILY 01/28/21 09/03/21 Vit C/E/Zn/Coppr/Lutein/Zeaxan 1 cap PO BID 01/28/21 09/03/21 [Preservision Areds 2 Softgel] traZODone HCL 50 - 100 mg PO HS PRN 01/28/21 09/03/21 Cholecalciferol [Vitamin D3 (25 25 mcg PO DAILY 02/06/21 09/03/21 Mcg = 1000 Iu)] Diltiazem Cd [Cardizem Cd] 120 mg PO BID 02/06/21 09/03/21 INSULIN LISPRO (humaLOG) [humaLOG] 14 units SQ AC-TID 02/06/21 09/03/21 Insulin Glargine [Lantus] 54 unit SQ HS 02/06/21 09/03/21 ALPRAZolam [Xanax] 0.25 mg PO DAILY PRN 09/03/21 09/03/21 Ascorbic Acid [Vitamin C] 1,000 mg PO DAILY 09/03/21 09/03/21 Fluticasone Propion/Salmeterol 1 puff INHALATION RT-TID 09/03/21 09/03/21 [Wixela 500-50 Inhub] HYDROcodone/APAP 5-325MG [[place] 1 tab PO Q6H PRN 09/03/21 09/03/21 5-325] Ipratropium-Albuterol Nebulize 3 ml INHALATION RT-TID 09/03/21 09/03/21 [Duoneb 0.5 mg-3 mg/3 ml Soln] Metoprolol Succinate (ER) [Toprol 100 mg PO DAILY 09/03/21 09/03/21 Xl] Sertraline [Zoloft] 50 mg PO TID 09/03/21 09/03/21 Sodium Bicarbonate Tab 650 mg PO BID 09/03/21 09/03/21 Allergies Allergy/AdvReac Type Severity Reaction Status Date / Time diclofenac sodium Allergy Unknown Verified 09/03/21 12:44 [From [place]] adhesive tape AdvReac Rash/Hives Verified 09/03/21 12:44 Review of Systems ROS Statement: Those systems with pertinent positive or pertinent negative responses have been documented in the HPI. ROS Other: All systems not noted in ROS Statement are negative. Past Medical History Past Medical History: Atrial Fibrillation, COPD, Diabetes Mellitus, Hyperlipidemia, Hypertension Additional Past Medical History / Comment(s): spinal stenosis, knee pain, left ear infection, home oxygen 3L, macular degeneration, right breast cancer History of Any Multi-Drug Resistant Organisms: None Reported Past Surgical History: Appendectomy, Breast Surgery, Cholecystectomy, Hysterectomy, Orthopedic Surgery Additional Past Surgical History / Comment(s): cervical laminectomy, bone graft arm, kidney stone removed, right breast lumpectomy x2 with radiation Past Psychological History: Depression Smoking Status: Former smoker Past Alcohol Use History: Occasional Past Drug Use History: None Reported - Past Family History Mother Additional Family Medical History / Comment(s): breast ca General Exam Limitations: no limitations Course Vital Signs 09/03/21 09/03/21 12:44 14:01 Temperature 98.5 F Pulse Rate 118 H 90 Respiratory 20 18 Rate Blood Pressure 141/80 130/73 O2 Sat by Pulse 95 97 Oximetry Medical Decision Making - Lab Data Result diagrams: 09/03/21 13:33 09/03/21 13:33 Lab Results 09/03/21 09/03/21 09/03/21 Range/Units 13:33 13:33 13:33 WBC 13.4 H (3.8-10.6) k/uL RBC 3.71 L (3.80-5.40) m/uL Hgb 10.5 L (11.4-16.0) gm/dL Hct 35.7 (34.0-46.0) % MCV 96.4 (80.0-100.0) fL MCH 28.5 (25.0-35.0) pg MCHC 29.5 L (31.0-37.0) g/dL RDW 14.6 (11.5-15.5) % Plt Count 372 (150-450) k/uL MPV 6.9 Neutrophils % 81 % Lymphocytes % 11 % Monocytes % 4 % Eosinophils % 2 % Basophils % 0 % Neutrophils # 10.8 H (1.3-7.7) k/uL Lymphocytes # 1.5 (1.0-4.8) k/uL Monocytes # 0.6 (0-1.0) k/uL Eosinophils # 0.3 (0-0.7) k/uL Basophils # 0.1 (0-0.2) k/uL Hypochromasia Marked Sodium 140 (137-145) mmol/L Potassium 4.6 (3.5-5.1) mmol/L Chloride 99 (98-107) mmol/L Carbon Dioxide 31 H (22-30) mmol/L Anion Gap 10 mmol/L BUN 28 H (7-17) mg/dL Creatinine 0.97 (0.52-1.04) mg/dL Est GFR (CKD-EPI)AfAm 65 (>60 ml/min/1.73 sqM) Est GFR (CKD-EPI)NonAf 56 (>60 ml/min/1.73 sqM) Glucose 399 H (74-99) mg/dL Plasma Lactic Acid Hema 1.0 (0.7-2.0) mmol/L Calcium 9.3 (8.4-10.2) mg/dL Coronavirus (PCR) (Not Detectd) 09/03/21 Range/Units 14:25 WBC (3.8-10.6) k/uL RBC (3.80-5.40) m/uL Hgb (11.4-16.0) gm/dL Hct (34.0-46.0) % MCV (80.0-100.0) fL MCH (25.0-35.0) pg MCHC (31.0-37.0) g/dL RDW (11.5-15.5) % Plt Count (150-450) k/uL MPV Neutrophils % % Lymphocytes % % Monocytes % % Eosinophils % % Basophils % % Neutrophils # (1.3-7.7) k/uL Lymphocytes # (1.0-4.8) k/uL Monocytes # (0-1.0) k/uL Eosinophils # (0-0.7) k/uL Basophils # (0-0.2) k/uL Hypochromasia Sodium (137-145) mmol/L Potassium (3.5-5.1) mmol/L Chloride (98-107) mmol/L Carbon Dioxide (22-30) mmol/L Anion Gap mmol/L BUN (7-17) mg/dL Creatinine (0.52-1.04) mg/dL Est GFR (CKD-EPI)AfAm (>60 ml/min/1.73 sqM) Est GFR (CKD-EPI)NonAf (>60 ml/min/1.73 sqM) Glucose (74-99) mg/dL Plasma Lactic Acid Hema (0.7-2.0) mmol/L Calcium (8.4-10.2) mg/dL Coronavirus (PCR) Not Detected (Not Detectd) Disposition Clinical Impression: Leg wound, left Disposition: ADMITTED IP TO THIS HOSP Condition: Fair Referrals: Cedrick Ruiz MD [Primary Care Provider] - 1-2 days
[2021-09-03] MEDS ORDERED: VANCOMYCIN IV PER PHARMACY 1 EACH MISC MISCELLANE PRN (13:22)
[2021-09-03] MEDS ORDERED: VANCOMYCIN 1,750 MG in SODIUM CHLORIDE 0.9% 500 ML 500 ML IVPB STA (13:27)
[2021-09-03] MEDS ORDERED: PIPERACILLIN-TAZOBACTAM 3.375 GM in SODIUM CHLORIDE 0.9% 100 ML IVPB STA (13:31)
[2021-09-03] MEDS ORDERED: NALOXONE 0.4 MG/ML 1 ML VIAL IV PRN (13:37)
[2021-09-03] MEDS ORDERED: ONDANSETRON 4 MG/2 ML VIAL IVP PRN (13:37)
[2021-09-03] MEDS ORDERED: MORPHINE SULFATE 4 MG/ML SYRINGE IV PRN (13:37)
[2021-09-03 13:55] LABS: Basophils # (A) 0.1 k/uL (0-0.2); Basophils % (A) 0 %; Eosinophils # (A) 0.3 k/uL (0-0.7); Eosinophils % (A) 2 %; HCT 35.7 % (34.0-46.0); HGB 10.5 gm/dL (11.4-16.0); Hypochromasia Marked; Lymphocytes # (A) 1.5 k/uL (1.0-4.8); Lymphocytes % (A) 11 %; MCH 28.5 pg (25.0-35.0); MCHC 29.5 g/dL (31.0-37.0); MCV 96.4 fL (80.0-100.0); Mean Platelet Volume 6.9; Monocytes # (A) 0.6 k/uL (0-1.0); Monocytes % (A) 4 %; Neutrophils # (A) 10.8 k/uL (1.3-7.7); Neutrophils % (A) 81 %; Platelet Count 372 k/uL (150-450); RBC 3.71 m/uL (3.80-5.40); RDW 14.6 % (11.5-15.5); WBC 13.4 k/uL (3.8-10.6)
[2021-09-03] MEDS: SODIUM CHLORIDE 0.9% 1,000 ML IV SCH (13:59)
[2021-09-03 14:14] LABS: Calcium 9.3 mg/dL (8.4-10.2); Potassium 4.6 mmol/L (3.5-5.1)
--- NOTE | 2021-09-03 16:14 | P.HPIM ---
History of Present Illness H&P Date: 09/03/21 This is a 80-year-old female with past medical history noted below significant for type 2 diabetes who was sent to the emergency room for further evaluation for chronic left lower extremity wound with surrounding cellulitis. Patient said that her wound started approximately 8 weeks ago when she fell at home and had a large skin flap on the lateral aspect of her left lower extremity above the ankle. At that time she went to the emergency room and her wound was sutured and subsequently she followed up with the wound care clinic. Patient said that the wound is been getting worse and more painful in the last few weeks. She was evaluated in the wound care clinic today and was sent to the ER. She does not have any evidence of sepsis at this time. Review of Systems Review of system: 14 points review of systems were obtained and were negative except to what were mentioned in the HPI. Past Medical History Past Medical History: Atrial Fibrillation, COPD, Diabetes Mellitus, Hyperlipidemia, Hypertension Additional Past Medical History / Comment(s): spinal stenosis, knee pain, left ear infection, home oxygen 3L, macular degeneration, right breast cancer History of Any Multi-Drug Resistant Organisms: None Reported Past Surgical History: Appendectomy, Breast Surgery, Cholecystectomy, Hysterectomy, Orthopedic Surgery Additional Past Surgical History / Comment(s): cervical laminectomy, bone graft arm, kidney stone removed, right breast lumpectomy x2 with radiation Past Psychological History: Depression Smoking Status: Former smoker Past Alcohol Use History: Occasional Past Drug Use History: None Reported - Past Family History Mother Additional Family Medical History / Comment(s): breast ca Medications and Allergies Home Medications Medication Instructions Recorded Confirmed Type Atorvastatin [Lipitor] 20 mg PO HS 07/15/14 09/03/21 History Apixaban [Eliquis] 2.5 mg PO BID 01/28/21 09/03/21 History Cetirizine HCl [Zyrtec] 10 mg PO DAILY 01/28/21 09/03/21 History Cyanocobalamin [Vitamin B-12] 1,000 mcg PO DAILY 01/28/21 09/03/21 History Latanoprost Ophth [Xalatan 0.005%] 1 drop BOTH EYES HS 01/28/21 09/03/21 History Montelukast [Singulair] 10 mg PO HS 01/28/21 09/03/21 History Roflumilast [Daliresp] 500 mcg PO DAILY 01/28/21 09/03/21 History Vit C/E/Zn/Coppr/Lutein/Zeaxan 1 cap PO BID 01/28/21 09/03/21 History [Preservision Areds 2 Softgel] traZODone HCL 50 - 100 mg PO HS PRN 01/28/21 09/03/21 History Cholecalciferol [Vitamin D3 (25 25 mcg PO DAILY 02/06/21 09/03/21 History Mcg = 1000 Iu)] Diltiazem Cd [Cardizem Cd] 120 mg PO BID 02/06/21 09/03/21 History INSULIN LISPRO (humaLOG) [humaLOG] 14 units SQ AC-TID 02/06/21 09/03/21 History Insulin Glargine [Lantus] 54 unit SQ HS 02/06/21 09/03/21 History ALPRAZolam [Xanax] 0.25 mg PO DAILY PRN 09/03/21 09/03/21 History Ascorbic Acid [Vitamin C] 1,000 mg PO DAILY 09/03/21 09/03/21 History Fluticasone Propion/Salmeterol 1 puff INHALATION RT-TID 09/03/21 09/03/21 History [Wixela 500-50 Inhub] HYDROcodone/APAP 5-325MG [[place] 1 tab PO Q6H PRN 09/03/21 09/03/21 History 5-325] Ipratropium-Albuterol Nebulize 3 ml INHALATION RT-TID 09/03/21 09/03/21 History [Duoneb 0.5 mg-3 mg/3 ml Soln] Metoprolol Succinate (ER) [Toprol 100 mg PO DAILY 09/03/21 09/03/21 History Xl] Sertraline [Zoloft] 50 mg PO TID 09/03/21 09/03/21 History Sodium Bicarbonate Tab 650 mg PO BID 09/03/21 09/03/21 History Allergies Allergy/AdvReac Type Severity Reaction Status Date / Time diclofenac sodium Allergy Unknown Verified 09/03/21 12:44 [From [facility]] adhesive tape AdvReac Rash/Hives Verified 09/03/21 12:44 Physical Exam Vitals: Vital Signs Temp Pulse Resp BP Pulse Ox 09/03/21 14:01 90 18 130/73 97 09/03/21 12:44 98.5 F 118 H 20 141/80 95 Intake and Output 09/03/21 09/03/21 09/03/21 06:59 14:59 22:59 Other: Weight 97.522 kg General: The patient is awake and alert, in no distress Eye: there is normal conjunctiva bilaterally. Neck: The neck is supple, there is no JVD. Cardiovascular: Normal S1-S2, no S3-S4, no murmurs. Respiratory: Lungs clear to auscultation bilaterally Gastrointestinal: Abdomen is soft, nontender Musculoskeletal: There is no pedal edema. Neurological:. Speech is normal. Skin: Skin is warm and dry and there is a large open wound noted on the lateral aspect of the left lower extremity in the tibial area. Wound is measuring approximately 20 x 10 cm. There is granulation tissue as well as some eschar with surrounding erythema and warmth of the skin around the wound. Results CBC & Chem 7: 09/03/21 13:33 09/03/21 13:33 Labs: Abnormal Lab Results - Last 24 Hours (Table) 09/03/21 09/03/21 Range/Units 13:33 13:33 WBC 13.4 H (3.8-10.6) k/uL RBC 3.71 L (3.80-5.40) m/uL Hgb 10.5 L (11.4-16.0) gm/dL MCHC 29.5 L (31.0-37.0) g/dL Neutrophils # 10.8 H (1.3-7.7) k/uL Carbon Dioxide 31 H (22-30) mmol/L BUN 28 H (7-17) mg/dL Glucose 399 H (74-99) mg/dL Assessment and Plan Assessment: 1. Chronic left lower extremity wound now infected with surrounding cellulitis 2. Nonhealing chronic diabetic wound 3. Type 2 diabetes, relatively well controlled. A1c 7.1 in July 4. Chronic atrial fibrillation on anticoagulation with Eliquis 5. Hyperlipidemia Today, I reviewed her medication list and lab work results. Patient was started on broad-spectrum antibiotic with IV vancomycin and Zosyn. There is no evidence of sepsis. We will continue pain control with morphine 2 mg every 4 hours as needed. Infectious disease and vascular surgery consulted. Patient may require debridement of the wound. We will continue supportive care otherwise. Repeat lab work in the morning.
[2021-09-03 17:10] LABS: Glucose,Whole Blood 281 mg/dL (75-99)
[2021-09-03] MEDS: SERTRALINE 50 MG TAB PO SCH ×2 (17:27→22:41)
[2021-09-03] MEDS: INSULIN ASPART (NovoLOG) 100 UNIT/ML VIAL SQ SCH ×3 (17:27→23:10)
[2021-09-03] MEDS: MORPHINE SULFATE 2 MG/ML SYRINGE IV PRN (17:27)
[2021-09-03] MEDS: IPRATROPIUM-ALBUTEROL 3 ML NEB INHALATION SCH (20:22)
[2021-09-03] MEDS ORDERED: HEPARIN SODIUM,PORCINE/PF 5,000 UNIT/0.5 ML SYRINGE SQ SCH (21:00)
[2021-09-03 21:52] LABS: Glucose,Whole Blood 69 mg/dL (75-99)
[2021-09-03] MEDS: ATORVASTATIN 20 MG TAB PO SCH (22:41)
[2021-09-03] MEDS: SODIUM BICARBONATE TAB 650 MG TAB PO SCH (22:41)
[2021-09-03] MEDS: APIXABAN 2.5 MG TABLET PO SCH (22:41)
[2021-09-03] MEDS: MONTELUKAST 10 MG TAB PO SCH (22:41)
[2021-09-03 23:06] LABS: Glucose,Whole Blood 174 mg/dL (75-99)
[2021-09-03] MEDS: INSULIN DETEMIR (LEVEMIR) 100 UNIT/ML SYR SQ SCH (23:06)
[2021-09-03] MEDS: DILTIAZEM CD 120 MG CAP.ER.24H PO SCH (23:06)
[2021-09-03] MEDS: VIT A,C & E-LUTEIN-MINERALS 1 EACH TAB PO SCH (23:11)
[2021-09-03] MEDS: LATANOPROST 0.005% OPHTH DROPS 2.5 ML BTL BOTH EYES SCH (23:11)
[2021-09-03] MEDS: PIPERACILLIN-TAZOBACTAM 3.375 GM in SODIUM CHLORIDE 0.9% 100 ML IVPB SCH (23:47)
[2021-09-04] MEDS: ACETAMINOPHEN TAB 325 MG TAB PO PRN ×2 (03:24→09:07)
[2021-09-04] MEDS: FLUTICASONE PROPION INHALATION SCH ×3 (05:10→14:02)
[2021-09-04] MEDS: SALMETEROL INHALATION SCH ×3 (05:10→14:02)
[2021-09-04 07:01] LABS: Glucose,Whole Blood 199 mg/dL (75-99)
[2021-09-04] MEDS: IPRATROPIUM-ALBUTEROL 3 ML NEB INHALATION SCH ×3 (07:48→20:45)
[2021-09-04] MEDS: CHOLECALCIFEROL 25 MCG (1000 IU) TABLET PO SCH (08:57)
[2021-09-04] MEDS: NON FORMULARY DRUG (Roflumilast [Daliresp] 500 MCG Tablet) PO SCH (08:57)
[2021-09-04] MEDS: ASCORBIC ACID 500 MG TAB PO SCH (08:57)
[2021-09-04] MEDS: LORATADINE 10 MG TAB PO SCH (08:57)
[2021-09-04] MEDS: CYANOCOBALAMIN 500 MCG TAB PO SCH (08:57)
[2021-09-04] MEDS: SODIUM BICARBONATE TAB 650 MG TAB PO SCH ×2 (08:58→21:11)
[2021-09-04] MEDS: VIT A,C & E-LUTEIN-MINERALS 1 EACH TAB PO SCH ×2 (08:58→21:12)
[2021-09-04] MEDS: SERTRALINE 50 MG TAB PO SCH ×3 (08:58→21:11)
[2021-09-04] MEDS: INSULIN ASPART (NovoLOG) 100 UNIT/ML VIAL SQ SCH ×7 (08:58→21:12)
[2021-09-04] MEDS: METOPROLOL SUCCINATE (ER) 100 MG TAB.ER.24H PO SCH (09:08)
[2021-09-04] MEDS: DILTIAZEM CD 120 MG CAP.ER.24H PO SCH ×2 (09:08→21:53)
[2021-09-04] MEDS: PIPERACILLIN-TAZOBACTAM 3.375 GM in SODIUM CHLORIDE 0.9% 100 ML IVPB SCH (09:09)
[2021-09-04] MEDS: APIXABAN 2.5 MG TABLET PO SCH ×2 (10:46→21:13)
[2021-09-04] MEDS: VANCOMYCIN 1,750 MG in SODIUM CHLORIDE 0.9% 500 ML 500 ML IVPB SCH (10:47)
--- NOTE | 2021-09-04 10:50 | P.CONS ---
History of Present Illness - Reason for Consult Consult date: 09/04/21 wound care - History of Present Illness This is a 80-year-old patient known to the wound care center with a nonhealing ulcerations to bilateral lower extremities. Patient recently moved here and lost her approximately 10 months ago. She has no support. She's been seen over the past few weeks and has been visibly upset and overwhelmed with managing her lower extremity wounds. She needs additional support for m anagement of chronic wounds. Patient is unable to have debridement due to pain and discomfort of dressing changes. Original cause of wound was Trauma. The wound is currently classified as a Grade 2 wound with etiology of Diabetic Wound/Ulcer of the Lower Extremity and is located on the Left,Lateral Lower Leg. The wound measures 16.3cm length x 6.6cm width x 0.3cm depth; 84.493cm^2 area and 25.348cm^3 volume. There is Fat Layer (Subcutaneous Tissue) exposed. There is no tunneling or undermining noted. There is a large amount of serosanguineous drainage noted. The wound margin is well defined and not attached to the wound base. There is medium (34-66%) red granulation within the wound bed. There is a medium (34-66%) amount of necrotic tissue within the wound bed including Adherent Slough. The periwound skin appearance exhibited: Scarring. The periwound skin appearance did not exhibit: Callus, Crepitus, Excoriation, Induration, Rash, Dry/Scaly, Maceration, Atrophie Running Water, Cyanosis, Ecchymosis, Hemosiderin Staining, Mottled, Pallor, Rubor, Erythema. Periwound temperature was noted as No Abnormality. The periwound has tenderness on palpation. Original cause of wound was Trauma. The wound is currently classified as a Grade 2 wound with etiology of Diabetic Wound/Ulcer of the Lower Extremity and is located on the Right,Anterior Lower Leg. The wound measures 1.6cm length x 0.8cm width x 0.2cm depth; 1.005cm^2 area and 0.201cm^3 volume. There is Fat Layer (Subcutaneous Tissue) exposed. There is no tunneling or undermining noted. There is a small amount of serous drainage noted. The wound margin is well defined and not attached to the wound base. There is medium (34-66%) pink granulation within the wound bed. There is a medium (34-66%) amount of necrotic tissue within the wound bed including Eschar. The periwound skin appearance exhibited: Scarring. The periwound skin appearance did not exhibit: Callus, Crepitus, Excoriation, Induration, Rash, Dry/Scaly, Maceration, Atrophie Pam, Cyanosis, Ecchymosis, Hemosiderin Staining, Mottled, Pallor, Rubor, Erythema. Periwound temperature was noted as No Abnormality. Review Of Systems: Constitutional: No fever, no chills, no night sweats. No weight change. No weakness, fatigue or lethargy. No daytime sleepiness. Integumentary:reports wounds, no lesions. No rash or pruritus. No unusual bruising. No change in hair or nails. Physical exam: General Appearance: Alert, cooperative, no distress, appears stated age. Skin: See HPI all other Skin color, texture, tugor normal, no rashes or lesions. Neurologic: Alert oriented x3 Assessment: 1. 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 Surgical debridement is scheduled for tomorrow with Dr. Ramirez 2. Bilateral lower extremity dressing changes to start on Wednesday: Apply Santyl, saline moistened gauze, dry gauze, rolled gauze and secure with paper tape. Wrap with Gino wrap. 3. Patient will continue her weekly wound appointment next appointment September 10 at 11:15. Thank you for the consultation any questions please contact the wound care center DNP note has been reviewed and discussed with Dr. Ramirez and the impression and plan of care has been directed as dictated. Past Medical History Past Medical History: Atrial Fibrillation, COPD, Diabetes Mellitus, Hyperlipidemia, Hypertension Additional Past Medical History / Comment(s): spinal stenosis, knee pain, left ear infection, home oxygen 3L, macular degeneration, right breast cancer History of Any Multi-Drug Resistant Organisms: None Reported Past Surgical History: Appendectomy, Breast Surgery, Cholecystectomy, Hysterectomy, Orthopedic Surgery Additional Past Surgical History / Comment(s): cervical laminectomy, bone graft arm, kidney stone removed, right breast lumpectomy x2 with radiation Past Psychological History: Depression Smoking Status: Former smoker Past Alcohol Use History: Occasional Past Drug Use History: None Reported - Past Family History Mother Additional Family Medical History / Comment(s): breast ca Medications and Allergies Home Medications Medication Instructions Recorded Confirmed Type Atorvastatin [Lipitor] 20 mg PO HS 07/15/14 09/03/21 History Apixaban [Eliquis] 2.5 mg PO BID 01/28/21 09/03/21 History Cetirizine HCl [Zyrtec] 10 mg PO DAILY 01/28/21 09/03/21 History Cyanocobalamin [Vitamin B-12] 1,000 mcg PO DAILY 01/28/21 09/03/21 History Latanoprost Ophth [Xalatan 0.005%] 1 drop BOTH EYES HS 01/28/21 09/03/21 History Montelukast [Singulair] 10 mg PO HS 01/28/21 09/03/21 History Roflumilast [Daliresp] 500 mcg PO DAILY 01/28/21 09/03/21 History Vit C/E/Zn/Coppr/Lutein/Zeaxan 1 cap PO BID 01/28/21 09/03/21 History [Preservision Areds 2 Softgel] traZODone HCL 50 - 100 mg PO HS PRN 01/28/21 09/03/21 History Cholecalciferol [Vitamin D3 (25 25 mcg PO DAILY 02/06/21 09/03/21 History Mcg = 1000 Iu)] Diltiazem Cd [Cardizem Cd] 120 mg PO BID 02/06/21 09/03/21 History INSULIN LISPRO (humaLOG) [humaLOG] 14 units SQ AC-TID 02/06/21 09/03/21 History Insulin Glargine [Lantus] 54 unit SQ HS 02/06/21 09/03/21 History ALPRAZolam [Xanax] 0.25 mg PO DAILY PRN 09/03/21 09/03/21 History Ascorbic Acid [Vitamin C] 1,000 mg PO DAILY 09/03/21 09/03/21 History Fluticasone Propion/Salmeterol 1 puff INHALATION RT-TID 09/03/21 09/03/21 History [Wixela 500-50 Inhub] HYDROcodone/APAP 5-325MG [[place] 1 tab PO Q6H PRN 09/03/21 09/03/21 History 5-325] Ipratropium-Albuterol Nebulize 3 ml INHALATION RT-TID 09/03/21 09/03/21 History [Duoneb 0.5 mg-3 mg/3 ml Soln] Metoprolol Succinate (ER) [Toprol 100 mg PO DAILY 09/03/21 09/03/21 History Xl] Sertraline [Zoloft] 50 mg PO TID 09/03/21 09/03/21 History Sodium Bicarbonate Tab 650 mg PO BID 09/03/21 09/03/21 History Allergies Allergy/AdvReac Type Severity Reaction Status Date / Time diclofenac sodium Allergy Unknown Verified 09/03/21 12:44 [From [facility]] adhesive tape AdvReac Rash/Hives Verified 09/03/21 12:44 Physical Exam Vitals: Vital Signs Temp Pulse Pulse Resp BP BP Pulse Ox 09/04/21 07:59 89 09/04/21 07:50 88 09/04/21 04:48 98.1 F 80 16 128/78 96 09/04/21 01:28 98.1 F 97 18 152/93 96 09/03/21 20:31 92 09/03/21 20:23 92 09/03/21 19:00 93 18 97 09/03/21 18:00 93 18 97 09/03/21 17:00 93 18 134/83 97 09/03/21 16:00 88 18 131/93 97 09/03/21 15:00 90 18 97 09/03/21 14:01 90 18 130/73 97 09/03/21 12:44 98.5 F 118 H 20 141/80 95 Intake and Output 09/03/21 09/04/21 09/04/21 22:59 06:59 14:59 Other: Voiding Method Toilet # Voids 2 Weight 97.522 kg Results CBC & Chem 7: 09/03/21 13:33 09/03/21 13:33 Labs: Abnormal Lab Results - Last 24 Hours (Table) 09/03/21 09/03/21 09/03/21 Range/Units 13:33 13:33 17:07 WBC 13.4 H (3.8-10.6) k/uL RBC 3.71 L (3.80-5.40) m/uL Hgb 10.5 L (11.4-16.0) gm/dL MCHC 29.5 L (31.0-37.0) g/dL Neutrophils # 10.8 H (1.3-7.7) k/uL Carbon Dioxide 31 H (22-30) mmol/L BUN 28 H (7-17) mg/dL Glucose 399 H (74-99) mg/dL POC Glucose (mg/dL) 281 H (75-99) mg/dL 09/03/21 09/03/21 09/04/21 Range/Units 21:50 23:04 07:00 WBC (3.8-10.6) k/uL RBC (3.80-5.40) m/uL Hgb (11.4-16.0) gm/dL MCHC (31.0-37.0) g/dL Neutrophils # (1.3-7.7) k/uL Carbon Dioxide (22-30) mmol/L BUN (7-17) mg/dL Glucose (74-99) mg/dL POC Glucose (mg/dL) 69 L 174 H 199 H (75-99) mg/dL Microbiology - Last 24 Hours (Table) 09/03/21 13:33 Gram Stain - Preliminary Leg - Left Wound Culture - Preliminary 09/03/21 13:33 Anaerobic Culture - Preliminary Leg - Left Assessment and Plan (1) Non-pressure chronic ulcer of right calf with fat layer exposed Current Visit: Yes Status: Acute Code(s): L97.212 - NON-PRESSURE CHRONIC ULCER OF RIGHT CALF W FAT LAYER EXPOSED SNOMED Code(s): 71566915695253333 (2) Non-pressure chronic ulcer of left calf with muscle involvement without evidence of necrosis Current Visit: Yes Status: Acute Code(s): L97.225 - NON-PRS CHR ULCER OF LEFT CALF WITH MSL INVL W/O EVD OF NECR SNOMED Code(s): 3913754402720
--- OUTSIDE RECORDS SUMMARY | 2021-09-04 12:15 | XMS REPORT | Referral Summary ---
:1940 Author Name Susana Mike Address [address] [place] [address] Care Team Providers Name Role Phone Susana Mike Unavailable Unavailable Saurav Barnett Unavailable Unavailable Veronica Mello Unavailable Unavailable Howard Ramirez Unavailable Unavailable Angelique Garcia Unavailable Unavailable Allergies, Adverse Reactions and Alerts Substance Reaction Reaction Severity Status Voltaren kidney failure Severe Active adhesive rash Mild Active Medications Medication Directions Start Date Status alprazolam 0.25 mg tablet tablet oral Unspecified active cetirizine 10 mg tablet tablet oral Unspecified active atorvastatin 20 mg tablet tablet oral Unspecified active PreserVision AREDS-2 250 mg-200 capsule oral Unspecified active unit-40 mg-1 mg capsule Wixela Inhub 100 mcg-50 mcg/dose blister with device inhalation Unspecified active powder for inhalation metoprolol tartrate 100 mg tablet tablet oral Unspecified active Eliquis 2.5 mg tablet tablet oral Unspecified active Lantus U-100 Insulin 100 unit/mL solution subcutaneous Unspecifi ed active subcutaneous solution Singulair 10 mg tablet tablet oral Unspecified active latanoprost 0.005 % eye drops drops ophthalmic (eye) Unspecified active Daliresp 500 mcg tablet tablet oral Unspecified active trazodone 50 mg tablet tablet oral Unspecified active Problems Problem Onset Date Status L97.212 - Non-pressure chronic ulcer of right calf with fat layer 08/06/2021 active exposed L97.225 - Non-pressure chronic ulcer of left calf with muscl e 08/06/2021 active involvement without evidence of necrosis Encounters Date Location 08/06/2021 12:00:00 AM [facility] Adia [facility]ral [facility] Encounter Diagnosis: L97.212 - Non-pressure chronic ulcer of right calf with fat layer exposed Encounter Diagnosis: L97.225 - Non-pressure chronic ulcer of left calf with muscle involvement without evidence of necrosis Vital signs Vital Value Unit Height 65 [in_i] Weight Measured 200 [lb_av] BP Systolic 117 mm[Hg] BP Diastolic 69 mm[Hg] BMI (Body Mass Index) 33.3 Unspecified Weight Measured 90.91 kg Body Temperature 99.3 [degF] Body Temperature 37.39 Debbie O2 % BldC Oximetry Unspecified Unspecified Heart Rate 96 /min Respiratory Rate 22 /min Inhaled O2 concentration Unspecified Unspecified Immunizations Name Date Status Immunization information has not been included or does not e xist. Procedures Procedure Date Status Procedure information has not been included or does not exis t. Social History Smoking Status: Former smoker. Notes: quit 2006 Goals Description Goal: Patient will not experience any in jury related to falls Goal: Patient will remain injury free re lated to falls Goal: Patient/caregiver will verbalize/d emonstrate measures taken to prevent injury and/or falls Goal: Patient/caregiver will demonstrate understanding of all current medications Goal: Patient/caregiver will demonstrate understanding of new oral/IV medications prescribed at the [facility] (topical prescript ions are covered under the skin breakdown problem) Goal: Necrotic/devitalized tissue will b e minimized in the wound bed Goal: Patient/caregiver will verbalize u nderstanding of reason and process for debridement of necrotic tissue Goal: Patient/caregiver agrees to and ve rbalizes understanding of need to use nutritional supplements and/or vitamins as prescribed Goal: Patient/caregiver will verbalize u nderstanding of the [facility] Goal: Patient will verbalize adequate pa in control and receive pain control interventions during procedures as neede d Goal: Patient/caregiver will verbalize a dequate pain control between visits Goal: Patient/caregiver will verbalize c omfort level met Goal: Patient will remain free of wound infection Goal: Patient/caregiver will verbalize u nderstanding of or measures to prevent infection and contamination in the home setting Goal: Signs and symptoms of infection wi ll be recognized early to allow for prompt treatment Goal: Patient/caregiver will verbalize u nderstanding of skin care regimen Goal: Ulcer/skin breakdown will have a v olume reduction of 30% by week 4 Goal: Ulcer/skin breakdown will have a v olume reduction of 50% by week 8 Goal: Ulcer/skin breakdown will have a v olume reduction of 80% by week 12 Goal: Ulcer/skin breakdown will heal wit hin 14 weeks Health Concerns Description Problem: Abuse / Safety / Falls / Self C are Management Problem: Medication Problem: Necrotic Tissue Problem: Nutrition Problem: Orientation to the Wound Care P cherise Problem: Pain, Acute or Chronic Problem: Soft Tissue Infection Problem: Wound/Skin Impairment Functional Status Description Date Cognitive Status: Alert and Oriented x 3 (Active) 2020 Ambulatory Status - Wheel Chair (Active) 09/03/2021 Assessment and Plan Description Plan of Treatment: Patient referred to ome care Plan of Treatment: Enzymatic debridement Plan of Treatment: Excisional debridemen t Plan of Treatment: Nutrition-profile lab s obtained as ordered Plan of Treatment: Obtain HgA1c Plan of Treatment: Administer pain contr ol measures as ordered Plan of Treatment: Patient referred to ome care Plan of Treatment: Skin care regimen ini tiated Plan of Treatment: Topical wound managem ent initiated Assessment: this is a 80-year-old patien t who suffered a fall approximately 3 weeks ago injuring her left lateral leg. Khadijah ent had a laceration that was sutured in place. However she developed a necrotic flap to the site. Patient has been having wet to dry dressings to the site with [facility] care. She seen her primary care provider who suggested she come to the wound care center. Patient then fell resulting in a ulceration to the right lateral leg. Sh e had not been any treatments to the site. Patient has history of diabetes her last hemoglobin A1c was approximately 1 month ago at 7.8.08/13/2021: Patient complains of wound discomfort. Tolerating dressings.08/20/2021: Still complains of wound discomfort.08/27/2021: Complains of wound discomfort and odor. Dressings di d not get changed until yesterday.09/03/2021: Still complains of severe discomfort Results Name Specimen Value Unit Ref. Range Date Result information has not been included or does not exist. Medical Equipment Implanted Area TIFFANI Assigning Author carmina Medical Equipment information has not been included or does not exist. Reason for Referral Transition of care
--- OUTSIDE RECORDS SUMMARY | 2021-09-04 12:16 | XMS REPORT | Referral Summary ---
:1940 Author Name Susana Mike Address [address] [facility] [place] [address] Care Team Providers Name Role Phone Susana [...] necrosis Encounters Date Location 08/06/2021 12:00:00 AM [facility] Encounter Diagnosis: L97.212 - Non-pressure chronic ulcer [...] of new oral/IV medications prescribed at the [facility] (topical prescript ions are covered under [...] to dry dressings to the site with [facility] care. She seen her primary care provider [...]
--- OUTSIDE RECORDS SUMMARY | 2021-09-04 12:17 | XMS REPORT | Referral Summary ---
:1940 Author Name Susana Mike Address [address] [facility] [address] Care Team Providers Name Role Phone Susana [...] Encounters Date Location 08/06/2021 12:00:00 AM [facility]ral [facility] Encounter Diagnosis: L97.212 - Non-pressure chronic [...] of new oral/IV medications prescribed at the [facility] (topical prescript ions are covered under the [...] to dry dressings to the site with [facility] care. She seen her primary care provider [...]
--- OUTSIDE RECORDS SUMMARY | 2021-09-04 12:18 | XMS REPORT | Referral Summary ---
:1940 Author Name Susana Mike Address [address] [facility] [place] [address] Care Team Providers Name Role Phone Susana [...] necrosis Encounters Date Location 08/06/2021 12:00:00 AM [facility] Encounter Diagnosis: L97.212 - Non-pressure chronic ulcer [...] of new oral/IV medications prescribed at the [facility] (topical prescript ions are covered under [...] dressings to the site with [facility] care. She seen her primary care provider [...]
[2021-09-04 12:24] LABS: Glucose,Whole Blood 127 mg/dL (75-99)
--- OUTSIDE RECORDS SUMMARY | 2021-09-04 12:25 | XMS REPORT | Referral Summary ---
:1940 Author Name Susana Mike Address [address] [facility] [address] Care Team Providers Name Role Phone Susana [...] necrosis Encounters Date Location 08/06/2021 12:00:00 AM [facility] Encounter Diagnosis: L97.212 - Non-pressure [...] of new oral/IV medications prescribed at the [facility] (topical prescript ions are covered under [...] to dry dressings to the site with [facility] care. She seen her primary care provider [...]
--- OUTSIDE RECORDS SUMMARY | 2021-09-04 14:00 | XMS REPORT | Referral Summary ---
:1940 Author Name Susana Mike Address [address] [facility] [address] Care Team Providers Name Role Phone Susana [...] necrosis Encounters Date Location 08/06/2021 12:00:00 AM [facility]ia [facility]ral [facility] Encounter Diagnosis: L97.212 - Non-pressure chronic [...] of new oral/IV medications prescribed at the [facility] (topical prescript ions are covered under [...] to dry dressings to the site with [facility] care. She seen her primary care provider [...]
--- OUTSIDE RECORDS SUMMARY | 2021-09-04 14:03 | XMS REPORT | Referral Summary ---
:1940 Author Name Susana Mike Address [address] [facility] [address] Care Team Providers Name Role Phone Susana [...] necrosis Encounters Date Location 08/06/2021 12:00:00 AM [facility]ral [facility] Encounter Diagnosis: L97.212 - Non-pressure [...] of new oral/IV medications prescribed at the [facility] (topical prescript ions are covered under the [...] dry dressings to the site with [facility] care. She seen her primary care [...]
--- NOTE | 2021-09-04 16:26 | P.PN ---
Subjective Patient is doing well this morning. No acute events overnight. Objective - Vital Signs Vital signs: Vital Signs Temp 98.7 F 09/04/21 11:31 Pulse 90 09/04/21 11:32 Resp 22 09/04/21 11:31 BP 127/83 09/04/21 11:31 Pulse Ox 96 09/04/21 11:31 Intake & Output 09/03/21 09/04/21 09/04/21 18:59 06:59 18:59 Weight 97.522 kg Other: Voiding Method Toilet Toilet # Voids 2 - Exam General: The patient is awake and alert, in no distress Eye: there is normal conjunctiva bilaterally. Neck: The neck is supple, there is no JVD. Cardiovascular: Normal S1-S2, no S3-S4, no murmurs. Respiratory: Lungs clear to auscultation bilaterally Gastrointestinal: Abdomen is soft, nontender Musculoskeletal: There is no pedal edema. Left leg wrapped with Larisa/dry dressing Neurological:. Speech is normal. Skin: Skin is warm and dry - Labs CBC & Chem 7: 09/03/21 13:33 09/03/21 13:33 Labs: Abnormal Lab Results - Last 24 Hours (Table) 09/03/21 09/03/21 09/03/21 Range/Units 17:07 21:50 23:04 POC Glucose (mg/dL) 281 H 69 L 174 H (75-99) mg/dL 09/04/21 09/04/21 Range/Units 07:00 12:22 POC Glucose (mg/dL) 199 H 127 H (75-99) mg/dL Microbiology - Last 24 Hours (Table) 09/03/21 13:45 Blood Culture - Preliminary Blood No Growth after 24 hours 09/03/21 13:33 Blood Culture - Preliminary Blood No Growth after 24 hours 09/03/21 13:33 Gram Stain - Preliminary Leg - Left Wound Culture - Preliminary Gram Neg Bacilli Presumptive MRSA Strep agalactiae - (group b) 09/03/21 13:33 Anaerobic Culture - Preliminary Leg - Left Assessment and Plan Assessment: 1. Chronic left lower extremity wound now infected with surrounding cellulitis 2. Nonhealing chronic diabetic wound 3. Type 2 diabetes, relatively well controlled. A1c 7.1 in July 4. Chronic atrial fibrillation on anticoagulation with Eliquis 5. Hyperlipidemia Today, I reviewed her medication list and lab work results. Patient was started on broad-spectrum antibiotic with IV vancomycin and cefepime. Infectious disease following closely We will continue pain control with morphine 2 mg every 4 hours as needed. Awaiting vascular surgery recommendation for debridement tomorrow We will continue supportive care otherwise. Repeat lab work in the morning.
[2021-09-04 16:59] LABS: Glucose,Whole Blood 143 mg/dL (75-99)
[2021-09-04] MEDS: SODIUM CHLORIDE 0.9% 1,000 ML IV SCH (17:36)
[2021-09-04 20:10] LABS: Glucose,Whole Blood 118 mg/dL (75-99)
[2021-09-04] MEDS ORDERED: CEFEPIME 2 GM in SODIUM CHLORIDE 0.9% 100 ML IVPB SCH (21:00)
[2021-09-04] MEDS: ATORVASTATIN 20 MG TAB PO SCH (21:11)
[2021-09-04] MEDS: CEFEPIME 2 GM in SODIUM CHLORIDE 0.9% 100 ML IVPB SCH (21:11)
[2021-09-04] MEDS: INSULIN DETEMIR (LEVEMIR) 100 UNIT/ML SYR SQ SCH (21:11)
[2021-09-04] MEDS: traZODone HCL 50 MG TAB PO PRN (21:11)
[2021-09-04] MEDS: LATANOPROST 0.005% OPHTH DROPS 2.5 ML BTL BOTH EYES SCH (21:12)
[2021-09-04] MEDS: MONTELUKAST 10 MG TAB PO SCH (21:53)
[2021-09-04] MEDS: ALPRAZolam 0.25 MG TAB PO PRN (23:25)
[2021-09-05] MEDS: SALMETEROL INHALATION SCH ×4 (03:12→22:24)
[2021-09-05] MEDS: FLUTICASONE PROPION INHALATION SCH ×4 (03:12→22:24)
[2021-09-05 05:53] LABS: Basophils # (A) 0.1 k/uL (0-0.2); Basophils % (A) 1 %; Eosinophils # (A) 0.3 k/uL (0-0.7); Eosinophils % (A) 3 %; HCT 34.1 % (34.0-46.0); HGB 10.2 gm/dL (11.4-16.0); Hypochromasia Moderate; Lymphocytes # (A) 1.7 k/uL (1.0-4.8); Lymphocytes % (A) 15 %; MCH 28.4 pg (25.0-35.0); MCV 94.7 fL (80.0-100.0); Mean Platelet Volume 6.7; Monocytes # (A) 0.6 k/uL (0-1.0); Monocytes % (A) 5 %; Neutrophils # (A) 9.1 k/uL (1.3-7.7); Neutrophils % (A) 76 %; Platelet Count 354 k/uL (150-450); RDW 14.6 % (11.5-15.5)
[2021-09-05] MEDS: ACETAMINOPHEN TAB 325 MG TAB PO PRN ×2 (06:09→21:19)
[2021-09-05 06:13] LABS: African American GFR (CKD) 51 (>60 ml/min/1.73 sqM); Anion Gap 6 mmol/L; Blood Urea Nitrogen 26 mg/dL (7-17); Calcium 9.1 mg/dL (8.4-10.2); Carbon Dioxide 32 mmol/L (22-30); Chloride 101 mmol/L (98-107); Glucose 100 mg/dL (74-99); Non-African American GFR(CKD) 44 (>60 ml/min/1.73 sqM); Potassium 4.2 mmol/L (3.5-5.1); Sodium 139 mmol/L (137-145)
[2021-09-05] MEDS: IPRATROPIUM-ALBUTEROL 3 ML NEB INHALATION SCH ×3 (07:34→20:55)
[2021-09-05 07:39] LABS: Glucose,Whole Blood 106 mg/dL (75-99)
[2021-09-05] MEDS: INSULIN ASPART (NovoLOG) 100 UNIT/ML VIAL SQ SCH ×6 (07:47→17:51)
[2021-09-05] MEDS: APIXABAN 2.5 MG TABLET PO SCH ×2 (07:50→21:17)
[2021-09-05] MEDS: NON FORMULARY DRUG (Roflumilast [Daliresp] 500 MCG Tablet) PO SCH (07:51)
[2021-09-05] MEDS: CHOLECALCIFEROL 25 MCG (1000 IU) TABLET PO SCH (08:15)
[2021-09-05] MEDS: LORATADINE 10 MG TAB PO SCH (08:15)
[2021-09-05] MEDS: SODIUM BICARBONATE TAB 650 MG TAB PO SCH ×2 (08:15→21:18)
[2021-09-05] MEDS: SERTRALINE 50 MG TAB PO SCH ×3 (08:15→21:19)
[2021-09-05] MEDS: CYANOCOBALAMIN 500 MCG TAB PO SCH (08:15)
[2021-09-05] MEDS: METOPROLOL SUCCINATE (ER) 100 MG TAB.ER.24H PO SCH (08:16)
[2021-09-05] MEDS: VIT A,C & E-LUTEIN-MINERALS 1 EACH TAB PO SCH ×2 (08:16→21:18)
[2021-09-05] MEDS: DILTIAZEM CD 120 MG CAP.ER.24H PO SCH ×2 (08:16→21:18)
[2021-09-05] MEDS: ASCORBIC ACID 500 MG TAB PO SCH (08:16)
[2021-09-05] MEDS: VANCOMYCIN 1,750 MG in SODIUM CHLORIDE 0.9% 500 ML 500 ML IVPB SCH (08:17)
--- NOTE | 2021-09-05 08:44 | P.CONS ---
History of Present Illness - Reason for Consult Consult date: 09/04/21 leg wound and cellulitis Requesting physician: Reji Castelan - Chief Complaint pain and non healing of the leg wounds x days - History of Present Illness History of present illness : Patient is 80-year-old female with a past medical history significant for a fall about 8 weeks ago and this patient has developed significant laceration to bilateral lower extremity left leg more than the right leg for the patient is currently evaluated and the [facility] wound care center patient was seen in the wound care center yesterday and subsequently has been sent to the hospital concern for increasing infection and need for surgical debridement patient be complaining of more pain to the left leg wound area especially the left leg describing it to be more of a sharp 5-6 out of 10 and no radiation she did have more drainage especially from the left leg wound area pat ient did have some chills denies high-grade fever with the symptoms the patient has been evaluated on admission to the hospital the patient was afebrile and no fever has been recorded subsequently patient was noticed to have a white count of 13.4 with a left shift kidney function was normal mohr PCR was negative local wound culture has been obtained which are currently pending patient has been started on vancomycin and [facility] infectious disease was consulted for further management of antibiotic therapy, patient is scheduled to undergo surgical debridement of this wound this afternoon per the nursing staff Review of system: CONSTITUTIONAL: Positive for weakness denies high-grade fever. EYES: No complaint. ENT: No complaint. RESPIRATORY: No complaint. CARDIOVASCULAR: No complaint. GENITOURINARY: No complaint. GASTROINTESTINAL: No complaint. MUSCULOSKELETAL: No complaint. INTEGUMENTARY: As per history of present illness. PSYCHOLOGIC: No complaint. ENDOCRINE: No complaint. NEUROLOGIC: No complaint. Past medical history : Reviewed, documented below Past surgical history : Reviewed, documented below Social history: Reviewed, documented below Medications: Reviewed, as documented below EXAMINATION: Vital sigans= Reviewed and documented below GENERAL DESCRIPTION elderly female lying in bed, no distress. No tachypnea or accessory muscle of respiration use. HEENT: Shows Pallor , no scleral icterus. Oral mucous membrane is dry. NECK: Trachea central, no thyromegaly. LUNGS: Unlabored breathing. Clear to auscultation anteriorly. No wheeze or crackle. HEART: S1, S2, regular rate and rhythm. ABDOMEN: Soft, no tenderness , guarding or rigidity EXTREMITIES: Bilateral lower extremity wound especially left leg is extensive with some slough tissue did have some swelling minimal drainage. SKIN: No rash, no masses palpable. NEUROLOGICAL: The patient is awake, alert, oriented x3, mood and affect normal. LABS AND RADIOLOGY: Reviewed results see below Assessment : Patient admitted to the hospital with worsening wound especially to the left leg and concern for secondary cellulitis failing outpatient therapy will need to cover for both gram-positive skin nicole as well as gram-negative infection as the patient has been exposed to the healthcare setting and has been treated with antibiotic in the outpatient setting Plan: 1-vancomycin pharmacy to dose with a target trough of 15 while watching kidney function and Vanco trough closely. 2-discontinue Zosyn repeat is risk of nephrotoxicity 3-and cefepime 2 g every 8 hours to cover for the gram-negative 4-local wound care per the wound care team We will follow on clinical condition and cultures to further adjust medication if needed Thank you for this consultation we will follow the patient along with you Past Medical History Past Medical History: Atrial Fibrillation, COPD, Diabetes Mellitus, Hyperlipidemia, Hypertension Additional Past Medical History / Comment(s): spinal stenosis, knee pain, left ear infection, home oxygen 3L, macular degeneration, right breast cancer History of Any Multi-Drug Resistant Organisms: None Reported Past Surgical History: Appendectomy, Breast Surgery, Cholecystectomy, Hysterectomy, Orthopedic Surgery Additional Past Surgical History / Comment(s): cervical laminectomy, bone graft arm, kidney stone removed, right breast lumpectomy x2 with radiation Past Psychological History: Depression Smoking Status: Former smoker Past Alcohol Use History: Occasional Past Drug Use History: None Reported - Past Family History Mother Additional Family Medical History / Comment(s): breast ca Medications and Allergies Home Medications Medication Instructions Recorded Confirmed Type Atorvastatin [Lipitor] 20 mg PO HS 07/15/14 09/03/21 History Apixaban [Eliquis] 2.5 mg PO BID 01/28/21 09/03/21 History Cetirizine HCl [Zyrtec] 10 mg PO DAILY 01/28/21 09/03/21 History Cyanocobalamin [Vitamin B-12] 1,000 mcg PO DAILY 01/28/21 09/03/21 History Latanoprost Ophth [Xalatan 0.005%] 1 drop BOTH EYES HS 01/28/21 09/03/21 History Montelukast [Singulair] 10 mg PO HS 01/28/21 09/03/21 History Roflumilast [Daliresp] 500 mcg PO DAILY 01/28/21 09/03/21 History Vit C/E/Zn/Coppr/Lutein/Zeaxan 1 cap PO BID 01/28/21 09/03/21 History [Preservision Areds 2 Softgel] traZODone HCL 50 - 100 mg PO HS PRN 01/28/21 09/03/21 History Cholecalciferol [Vitamin D3 (25 25 mcg PO DAILY 02/06/21 09/03/21 History Mcg = 1000 Iu)] Diltiazem Cd [Cardizem Cd] 120 mg PO BID 02/06/21 09/03/21 History INSULIN LISPRO (humaLOG) [humaLOG] 14 units SQ AC-TID 02/06/21 09/03/21 History Insulin Glargine [Lantus] 54 unit SQ HS 02/06/21 09/03/21 History ALPRAZolam [Xanax] 0.25 mg PO DAILY PRN 09/03/21 09/03/21 History Ascorbic Acid [Vitamin C] 1,000 mg PO DAILY 09/03/21 09/03/21 History Fluticasone Propion/Salmeterol 1 puff INHALATION RT-TID 09/03/21 09/03/21 History [Wixela 500-50 Inhub] HYDROcodone/APAP 5-325MG [[place] 1 tab PO Q6H PRN 09/03/21 09/03/21 History 5-325] Ipratropium-Albuterol Nebulize 3 ml INHALATION RT-TID 09/03/21 09/03/21 History [Duoneb 0.5 mg-3 mg/3 ml Soln] Metoprolol Succinate (ER) [Toprol 100 mg PO DAILY 09/03/21 09/03/21 History Xl] Sertraline [Zoloft] 50 mg PO TID 09/03/21 09/03/21 History Sodium Bicarbonate Tab 650 mg PO BID 09/03/21 09/03/21 History Allergies Allergy/AdvReac Type Severity Reaction Status Date / Time diclofenac sodium Allergy Unknown Verified 09/03/21 12:44 [From Voltaren] adhesive tape AdvReac Rash/Hives Verified 09/03/21 12:44 Physical Exam Vitals: Vital Signs Temp Pulse Pulse Resp BP BP Pulse Ox 09/04/21 07:59 89 09/04/21 07:50 88 09/04/21 04:48 98.1 F 80 16 128/78 96 09/04/21 01:28 98.1 F 97 18 152/93 96 09/03/21 20:31 92 09/03/21 20:23 92 09/03/21 19:00 93 18 97 09/03/21 18:00 93 18 97 09/03/21 17:00 93 18 134/83 97 09/03/21 16:00 88 18 131/93 97 09/03/21 15:00 90 18 97 09/03/21 14:01 90 18 130/73 97 09/03/21 12:44 98.5 F 118 H 20 141/80 95 Intake and Output 09/03/21 09/04/21 09/04/21 22:59 06:59 14:59 Other: Voiding Method Toilet # Voids 2 Weight 97.522 kg Results CBC & Chem 7: 09/05/21 05:19 09/05/21 05:18 Labs: Abnormal Lab Results - Last 24 Hours (Table) 09/03/21 09/03/21 09/03/21 Range/Units 13:33 13:33 17:07 WBC 13.4 H (3.8-10.6) k/uL RBC 3.71 L (3.80-5.40) m/uL Hgb 10.5 L (11.4-16.0) gm/dL MCHC 29.5 L (31.0-37.0) g/dL Neutrophils # 10.8 H (1.3-7.7) k/uL Carbon Dioxide 31 H (22-30) mmol/L BUN 28 H (7-17) mg/dL Glucose 399 H (74-99) mg/dL POC Glucose (mg/dL) 281 H (75-99) mg/dL 09/03/21 09/03/21 09/04/21 Range/Units 21:50 23:04 07:00 WBC (3.8-10.6) k/uL RBC (3.80-5.40) m/uL Hgb (11.4-16.0) gm/dL MCHC (31.0-37.0) g/dL Neutrophils # (1.3-7.7) k/uL Carbon Dioxide (22-30) mmol/L BUN (7-17) mg/dL Glucose (74-99) mg/dL POC Glucose (mg/dL) 69 L 174 H 199 H (75-99) mg/dL Microbiology - Last 24 Hours (Table) 09/03/21 13:33 Gram Stain - Preliminary Leg - Left Wound Culture - Preliminary 09/03/21 13:33 Anaerobic Culture - Preliminary Leg - Left
[2021-09-05] MEDS ORDERED: IV FLUID CONTINUATION 1,000 ML IV ONE (10:36)
[2021-09-05 10:40] LABS: Glucose,Whole Blood 99 mg/dL (75-99)
[2021-09-05] MEDS ORDERED: ONDANSETRON 4 MG/2 ML VIAL IVP ONE (10:41)
[2021-09-05] MEDS ORDERED: KETAMINE 10 MG/ML 20 ML VIAL ONE (10:50)
[2021-09-05] MEDS ORDERED: PROPOFOL 10 MG/ML 20 ML VIAL IV ONE (10:50)
[2021-09-05] MEDS ORDERED: fentaNYL (PF) 50 MCG/ML 2 ML AMP ONE (10:50)
[2021-09-05] MEDS: CEFEPIME 2 GM in SODIUM CHLORIDE 0.9% 100 ML IVPB SCH ×2 (11:15→21:20)
--- NOTE | 2021-09-05 11:26 | P.OP ---
Date of Procedure: 09/05/21 Preoperative Diagnosis: Ulcerations bilateral lower legs with fatty layer exposed. Postoperative Diagnosis: Same Procedure(s) Performed: Bilateral subcutaneous debridements Anesthesia: MAC Surgeon: Howard Ramirez Estimated Blood Loss (ml): 100 Pathology: none sent Condition: stable Disposition: PACU Indications for Procedure: The patient has been treated in the wound center for multiple ulcerations. Therefore too tender for debridement in Wound Center without sedation. Operative Findings: On debridement we find a lot of nonviable mushy subcutaneous tissue with necrosis fat and severe bioburden. Pre-debridement measurements were about 18 x 8 cm and 0.3 cm deep on the left post debridement measurements about 18.5 x 8.2 cm and 0.5 cm in depth. The right leg began about 1.8 x 1.8 cm and 0.2 cm in depth and in the end was 2 x 2 centimeters and 0.3 cm in depth. Description of Procedure: With the patient spine position, under benefit of IV sedation, we prepped and draped in standard fashion. We utilized a sharp curette to remove all nonviable loops tissue including some frail nonviable granulation tissue down to into and including bleeding subcutaneous tissue. Bleeding was profuse in both wounds throughout. Bleeding was controlled with elevation and direct pressure. Wounds were dressed then with absorptive silver gauze Kerlix and Gino wraps. Patient tolerated the procedure well and was taken recovery area in stable condition.
[2021-09-05] MEDS ORDERED: HYDROmorphone 0.5 MG/0.5 ML SYRINGE IVP ONE ×2 (11:31→11:40)
[2021-09-05] MEDS ORDERED: MORPHINE SULFATE 4 MG/ML SYRINGE ONE (11:51)
[2021-09-05] MEDS ORDERED: diphenhydrAMINE 50 MG/ML 1 ML VIAL ONE (11:52)
[2021-09-05] MEDS ORDERED: MORPHINE SULFATE 4 MG/ML SYRINGE IVP ONE (11:53)
[2021-09-05] MEDS ORDERED: diphenhydrAMINE 50 MG/ML 1 ML VIAL IVP ONE (11:56)
[2021-09-05] MEDS ORDERED: SODIUM CHLORIDE 0.9% 1,000 ML IV ONE (11:57)
[2021-09-05 12:55] LABS: Glucose,Whole Blood 128 mg/dL (75-99)
[2021-09-05] MEDS: ALPRAZolam 0.25 MG TAB PO PRN (13:18)
--- OUTSIDE RECORDS SUMMARY | 2021-09-05 14:00 | XMS REPORT | Referral Summary ---
:1940 Author Name Susana Mike Address [address] [place] [address] Care Team Providers Name Role Phone Susana Mike Unavailable Unavailable Saurav Barnett Unavailable Unavailable eVronica Mello Unavailable Unavailable Howard Ramirez Unavailable Unavailable [...] necrosis Encounters Date Location 08/06/2021 12:00:00 AM [facility] Adia Cabral [facility] Encounter Diagnosis: L97.212 - Non-pressure chronic ulcer [...] of new oral/IV medications prescribed at the [facility] (topical prescript ions are covered under [...] to dry dressings to the site with [facility] care. She seen her primary care [...]
--- OUTSIDE RECORDS SUMMARY | 2021-09-05 14:02 | XMS REPORT | Referral Summary ---
:1940 Author Name Susana Mike Address [address] [place] [address] Care Team Providers Name Role Phone Susana [...] necrosis Encounters Date Location 08/06/2021 12:00:00 AM [facility] Adia Cabral [facility] Encounter [...] of new oral/IV medications prescribed at the [facility] (topical prescript ions are covered under [...] to dry dressings to the site with [facility] care. She seen her primary [...]
--- OUTSIDE RECORDS SUMMARY | 2021-09-05 14:15 | XMS REPORT | Referral Summary ---
:1940 Author Name Susana Mike Address [address] [facility] [address] Care Team Providers Name Role Phone Susana [...] necrosis Encounters Date Location 08/06/2021 12:00:00 AM [facility] Adia Cabral [facility] Encounter Diagnosis: L97.212 - Non-pressure chronic [...] Body Temperature 99.3 [degF] Body Temperature 37.39 Debbei O2 % BldC Oximetry Unspecified Unspecified Heart [...] of new oral/IV medications prescribed at the [facility] (topical prescript ions are covered under the [...] to dry dressings to the site with [facility] care. She seen her primary care [...]
[2021-09-05] MEDS: SODIUM CHLORIDE 0.9% 1,000 ML IV SCH (14:47)
--- NOTE | 2021-09-05 17:03 | P.PN ---
Subjective Patient appeared more lethargic today. She said that she uses a CPAP at home for obstructive sleep apnea. She also underwent debridement of the left lower extremity wound that is currently wrapped with clean dressing and Gino wrap. Objective - Vital Signs Vital signs: Vital Signs Temp 98.6 F 09/05/21 13:15 Pulse 126 H 09/05/21 14:43 Resp 22 09/05/21 14:43 BP 110/57 09/05/21 14:43 Pulse Ox 96 09/05/21 14:43 Intake & Output 09/04/21 09/05/21 09/05/21 18:59 06:59 18:59 Intake Total 600 150 Output Total 5 Balance 600 145 Intake: IV 150 Intake, IV Titration 600 Amount Cefepime 2 gm In Sodium 100 Chloride 0.9% 100 ml @ 25 mls/hr IVPB Q12HR [facility] Rx #:[id number] Vancomycin 1,750 mg In 500 Sodium Chloride 0.9% 500 ml 500 ml @ 167 mls/hr IVPB Q24H [facility] Rx#: [id number] Output: Estimated Blood Loss 5 Other: Voiding Method Toilet Toilet Toilet # Voids 3 1 - Exam General: The patient is awake and alert, in no distress Eye: there is normal conjunctiva bilaterally. Neck: The neck is supple, there is no JVD. Cardiovascular: Normal S1-S2, no S3-S4, no murmurs. Respiratory: Lungs clear to auscultation bilaterally Gastrointestinal: Abdomen is soft, nontender Musculoskeletal: There is no pedal edema. Left leg wrapped with clean/dry dressing Neurological:. Speech is normal. Skin: Skin is warm and dry - Labs CBC & Chem 7: 09/05/21 05:19 09/05/21 05:18 Labs: Abnormal Lab Results - Last 24 Hours (Table) 09/04/21 09/05/21 09/05/21 Range/Units 20:08 05:18 05:19 WBC 12.0 H (3.8-10.6) k/uL RBC 3.60 L (3.80-5.40) m/uL Hgb 10.2 L (11.4-16.0) gm/dL MCHC 30.0 L (31.0-37.0) g/dL Neutrophils # 9.1 H (1.3-7.7) k/uL Carbon Dioxide 32 H (22-30) mmol/L BUN 26 H (7-17) mg/dL Creatinine 1.17 H (0.52-1.04) mg/dL Glucose 100 H (74-99) mg/dL POC Glucose (mg/dL) 118 H (75-99) mg/dL 09/05/21 09/05/21 Range/Units 07:37 12:53 WBC (3.8-10.6) k/uL RBC (3.80-5.40) m/uL Hgb (11.4-16.0) gm/dL MCHC (31.0-37.0) g/dL Neutrophils # (1.3-7.7) k/uL Carbon Dioxide (22-30) mmol/L BUN (7-17) mg/dL Creatinine (0.52-1.04) mg/dL Glucose (74-99) mg/dL POC Glucose (mg/dL) 106 H 128 H (75-99) mg/dL Microbiology - Last 24 Hours (Table) 09/03/21 13:33 Blood Culture - Preliminary Blood No Growth after 48 hours 09/03/21 13:45 Blood Culture - Preliminary Blood No Growth after 48 hours 09/03/21 13:33 Gram Stain - Final Leg - Left Wound Culture - Final Pseudomonas aeruginosa Methicillin resist S. aureus Strep agalactiae - (group b) Assessment and Plan Assessment: 1. Chronic left lower extremity wound now infected with surrounding cellulitis 2. Nonhealing chronic diabetic wound status post debridement in the OR on 09/05 3. Type 2 diabetes, relatively well controlled. A1c 7.1 in July 4. Chronic atrial fibrillation on anticoagulation with Eliquis 5. Hyperlipidemia 6. Obstructive sleep apnea, BiPAP ordered for nighttime use Today, I reviewed her medication list and lab work results. Patient was started on broad-spectrum antibiotic with IV vancomycin and cefepime. Infectious disease following closely. Cultures pending We will continue pain control with morphine 2 mg every 4 hours as needed. Continue wound care We will continue supportive care otherwise. Repeat lab work in the morning.
[2021-09-05 17:23] LABS: Glucose,Whole Blood 214 mg/dL (75-99)
--- NOTE | 2021-09-05 17:26 | CDI ---
Documentation Clarification Form Date: 09/05/2021 05:15:11 PM From: Cheryl Muñoz RN, CCDS Admit Date: 09/03/2021 03:09:00 PM Patient Name: Preeti Orozco Visit Number: [id number] ATTENTION: The Clinical Documentation Specialists (CDI) and [facility] Coding Staff appreciate your assistance in clarifying documentation. Please respond to the clarification below the line at the bottom and electronically sign. The CDI & [facility] Coding staff will review the response and follow-up if needed. Please note: Queries are made part of the Legal Health Record. If you have any questions, please contact the author of this message via ITS. Dr. Howard Lassiter debridement is documented 09/05/2021. Additional clarification regarding the procedure is requested. History/Risk Factors: Atrial Fibrillation, COPD, DM2, HLD, HTN, Spinal Stenosis, Home o2 3l NC, Macular Degeneration, Right Breast Cancer Clinical Indicators: 09/05 Procedure Pre-op Diagnosis: "Ulcerations bilateral lower legs with fatty layer exposed." Treatment: 09/05 Procedure Note: Bilateral subcutaneous debridements. We utilized a sharp curette to remove all nonviable loops tissue including some frail nonviable granulation tissue down to into and including bleeding subcutaneous tissue." Please clarify the type of procedure performed: [ ] Excisional debridement (the removal of necrotic, devitalized tissue or slough by means of cutting away of tissue) [ ] Non-excisional debridement (the removal of necrotic, devitalized tissue or slough by means of flushing, brushing, or washing. (Irrigation) [ ] Other; please specify [ ] Unable to determine Five elements required for accurate and compliant documentation of a debridement: Technique used (e.g., excisional, excised, cutting, brushing, jet lavage etc.) Instrument(s) used (e.g., scalpel, curette, etc.) Nature of the tissue removed (e.g., necrotic, devitalized tissues, non-viable tissue, etc.) Appearance and size of the wound (e.g., down to fresh bleeding tissue, 7cm x 10cm, etc.) Depth of the debridement* (e.g., skin, subcutaneous tissue, fascia, muscle, bone, etc.) (Template Last Revised: January 2021) MTDD
--- NOTE | 2021-09-05 17:56 | PN ---
PROGRESS NOTE DATE OF SERVICE: 09/05/2021 REASON FOR FOLLOWUP: Left lower extremity infected wound. INTERVAL HISTORY: Patient is afebrile. The patient is breathing comfortably, status post debridement of the left leg wound. Tolerated the procedure. No chest pain, shortness of breath, cough, no abdominal pain or diarrhea. PHYSICAL EXAMINATION: Blood pressure 110/57, pulse 126, temperature 98.6. She is 93% . General description is an elderly female lying in bed in no distress. Respiratory system: Unlabored breathing, clear to auscultation anteriorly. Heart S1, S2. Regular rate and rhythm. Left leg is currently wrapped. No obvious drainage on the dressing. LABS: Hemoglobin is 10.8, white count 12. BUN of 26, creatinine 1.17. DIAGNOSTIC IMPRESSION AND PLAN: Patient with left lower extremity traumatic wound with secondary cellulitis, status post debridement of the wound culture. Positive for strep and MRSA and Pseudomonas. Patient is covered with cefepime and vancomycin to continue. Local care per surgery. Continue supportive care. MMODL / IJN: [id number] /
[2021-09-05 20:36] LABS: Glucose,Whole Blood 78 mg/dL (75-99)
[2021-09-05] MEDS: SYMBICORT 160-4.5 MCG INHALER INHALATION SCH (20:55)
[2021-09-05 21:11] LABS: Glucose,Whole Blood 71 mg/dL (75-99)
[2021-09-05] MEDS: ATORVASTATIN 20 MG TAB PO SCH (21:18)
[2021-09-05] MEDS: MONTELUKAST 10 MG TAB PO SCH (21:19)
[2021-09-05] MEDS: LATANOPROST 0.005% OPHTH DROPS 2.5 ML BTL BOTH EYES SCH (21:20)
[2021-09-05 22:36] LABS: Glucose,Whole Blood 62 mg/dL (75-99)
[2021-09-05] MEDS ORDERED: DEXTROSE 50% SYRINGE 50 ML IVP STA (22:36)
[2021-09-05 22:51] LABS: Glucose,Whole Blood 135 mg/dL (75-99)
[2021-09-06 01:22] LABS: Glucose,Whole Blood 122 mg/dL (75-99)
[2021-09-06] MEDS: ACETAMINOPHEN TAB 325 MG TAB PO PRN ×2 (03:34→10:10)
[2021-09-06] MEDS: INSULIN DETEMIR (LEVEMIR) 100 UNIT/ML SYR SQ SCH (04:10)
[2021-09-06] MEDS: INSULIN ASPART (NovoLOG) 100 UNIT/ML VIAL SQ SCH ×8 (04:10→21:59)
[2021-09-06 04:47] LABS: Glucose,Whole Blood 232 mg/dL (75-99)
[2021-09-06 06:59] LABS: Glucose,Whole Blood 214 mg/dL (75-99)
[2021-09-06] MEDS: SYMBICORT 160-4.5 MCG INHALER INHALATION SCH ×2 (09:17→20:36)
[2021-09-06] MEDS: IPRATROPIUM-ALBUTEROL 3 ML NEB INHALATION SCH ×3 (09:17→20:36)
[2021-09-06] MEDS: CEFEPIME 2 GM in SODIUM CHLORIDE 0.9% 100 ML IVPB SCH ×2 (10:09→21:56)
[2021-09-06] MEDS: VANCOMYCIN 1,750 MG in SODIUM CHLORIDE 0.9% 500 ML 500 ML IVPB SCH (10:09)
[2021-09-06] MEDS: METOPROLOL SUCCINATE (ER) 100 MG TAB.ER.24H PO SCH (10:11)
[2021-09-06] MEDS: CYANOCOBALAMIN 500 MCG TAB PO SCH (10:11)
[2021-09-06] MEDS: DILTIAZEM CD 120 MG CAP.ER.24H PO SCH ×2 (10:11→23:20)
[2021-09-06] MEDS: APIXABAN 2.5 MG TABLET PO SCH (10:11)
[2021-09-06] MEDS: ASCORBIC ACID 500 MG TAB PO SCH (10:11)
[2021-09-06] MEDS: SERTRALINE 50 MG TAB PO SCH ×3 (10:11→21:59)
[2021-09-06] MEDS: VIT A,C & E-LUTEIN-MINERALS 1 EACH TAB PO SCH ×2 (10:11→23:20)
[2021-09-06] MEDS: LORATADINE 10 MG TAB PO SCH (10:12)
[2021-09-06] MEDS: COLLAGENASE 250 UNIT/GM OINTMENT 30 GM TUBE TOPICAL SCH (10:13)
[2021-09-06] MEDS: NON FORMULARY DRUG (Roflumilast [Daliresp] 500 MCG Tablet) PO SCH (10:13)
[2021-09-06] MEDS: CHOLECALCIFEROL 25 MCG (1000 IU) TABLET PO SCH (10:17)
[2021-09-06] MEDS: SODIUM BICARBONATE TAB 650 MG TAB PO SCH ×2 (10:21→21:58)
[2021-09-06 11:40] LABS: Glucose,Whole Blood 300 mg/dL (75-99)
--- NOTE | 2021-09-06 12:09 | P.PN ---
Subjective Patient is doing fairly well today. She was up in the chair when I saw her. Her pain is relatively well-controlled. Her heart rate is fluctuating between 100-130. Objective - Vital Signs Vital signs: Vital Signs Temp 98.7 F 09/06/21 04:58 Pulse 104 H 09/06/21 09:18 Resp 20 09/06/21 04:58 BP 153/78 09/06/21 04:58 Pulse Ox 97 09/06/21 04:58 Intake & Output 09/05/21 09/06/21 09/06/21 18:59 06:59 18:59 Intake Total 150 240 Output Total 5 Balance 145 240 Intake: IV 150 Intake, IV Titration 240 Amount Sodium Chloride 0.9% 1, 240 000 ml @ 20 mls/hr IV . Q24H [facility] Rx#:[id number] Output: Estimated Blood Loss 5 Other: Voiding Method Toilet Toilet Toilet # Voids 2 2 - Exam General: The patient is awake and alert, in no distress Eye: there is normal conjunctiva bilaterally. Neck: The neck is supple, there is no JVD. Cardiovascular: Normal S1-S2, no S3-S4, no murmurs. Respiratory: Lungs clear to auscultation bilaterally Gastrointestinal: Abdomen is soft, nontender Musculoskeletal: There is no pedal edema. Left leg wrapped with clean/dry dressing Neurological:. Speech is normal. Skin: Skin is warm and dry - Labs CBC & Chem 7: 09/05/21 05:19 09/06/21 07:15 Labs: Abnormal Lab Results - Last 24 Hours (Table) 09/05/21 09/05/21 09/05/21 Range/Units 12:53 17:22 21:09 Creatinine (0.52-1.04) mg/dL POC Glucose (mg/dL) 128 H 214 H 71 L (75-99) mg/dL 09/05/21 09/05/21 09/06/21 Range/Units 22:32 22:50 01:20 Creatinine (0.52-1.04) mg/dL POC Glucose (mg/dL) 62 L 135 H 122 H (75-99) mg/dL 09/06/21 09/06/21 09/06/21 Range/Units 04:45 06:58 07:15 Creatinine 1.11 H (0.52-1.04) mg/dL POC Glucose (mg/dL) 232 H 214 H (75-99) mg/dL 09/06/21 Range/Units 11:39 Creatinine (0.52-1.04) mg/dL POC Glucose (mg/dL) 300 H (75-99) mg/dL Microbiology - Last 24 Hours (Table) 09/03/21 13:33 Anaerobic Culture - Preliminary Leg - Left Anaerobic Gram Positive Cocci 09/03/21 13:33 Blood Culture - Preliminary Blood No Growth after 48 hours 09/03/21 13:45 Blood Culture - Preliminary Blood No Growth after 48 hours 09/03/21 13:33 Gram Stain - Final Leg - Left Wound Culture - Final Pseudomonas aeruginosa Methicillin resist S. aureus Strep agalactiae - (group b) Assessment and Plan Assessment: This is a 80-year-old female with past medical history significant for chronic left lower extremity wound that was sent to the ER from the wound care clinic for further evaluation of her wound and for debridement. There is a list of her medical problems at this during this hospitalization. 1. Chronic left lower extremity wound now infected with surrounding cellulitis 2. Nonhealing chronic diabetic wound status post debridement in the OR on 09/05 3. Type 2 diabetes, relatively well controlled. A1c 7.1 in July 4. Chronic atrial fibrillation on anticoagulation with Eliquis. Heart rate not well controlled on Cardizem 120 mg twice daily and metoprolol XL 100 mg daily. I'll consult cardiology for further evaluation 5. Hyperlipidemia 6. Obstructive sleep apnea, BiPAP ordered for nighttime use but patient is unable to tolerate the mask Today, I reviewed her medication list and lab work results. Patient was started on broad-spectrum antibiotic with IV vancomycin and cefepime. Infectious disease following closely. Cultures pending We will continue pain control with morphine 2 mg every 4 hours as needed. Continue wound care and dressing change as directed We will continue supportive care otherwise. Repeat lab work in the morning.
[2021-09-06] MEDS: SALMETEROL INHALATION SCH ×3 (12:30→23:21)
[2021-09-06] MEDS: FLUTICASONE PROPION INHALATION SCH ×3 (12:30→23:21)
[2021-09-06] MEDS: MORPHINE SULFATE 2 MG/ML SYRINGE IV PRN ×2 (12:38→16:43)
[2021-09-06] MEDS: metroNIDAZOLE 500 MG TAB PO SCH ×2 (16:43→23:43)
[2021-09-06 17:05] LABS: Glucose,Whole Blood 47 mg/dL (75-99)
--- NOTE | 2021-09-06 17:11 | PN ---
PROGRESS NOTE DATE OF SERVICE: 09/06/2021 REASON FOR FOLLOWUP: Bilateral lower extremity venostasis ulcer and cellulitis. INTERVAL HISTORY: Patient is afebrile. The patient is breathing comfortably. The patient denies having any chest pain, shortness of breath or cough. No abdominal pain. No worsening pain to the lower extremity wound area. PHYSICAL EXAMINATION: Blood pressure 160/78 with a pulse of 110. Temperature 98.1. She is 98% on 3 L nasal cannula. General description is an elderly female up in the chair in no distress. Respiratory system: Unlabored breathing, clear to auscultation anteriorly. Heart S1, S2. Regular rate and rhythm. Abdomen soft, no tenderness. Legs wound with minimal slough tissue. Surrounding swelling and redness has improved. No drainage. LABS: Creatinine is 1.11. Culture positive for Pseudomonas MRSA in this patient with bilateral lower extremity venostasis ulcer with secondary cellulitis. Culture with Pseudomonas and MRSA and strep and anaerobes. Patient is covered with vancomycin and cefepime to continue. Will add oral Flagyl. Local care to continue per Surgery and continue supportive care. MMODL / IJN: [id number] /
[2021-09-06 17:30] LABS: Glucose,Whole Blood 103 mg/dL (75-99)
[2021-09-06 20:43] LABS: Glucose,Whole Blood 173 mg/dL (75-99)
[2021-09-06] MEDS: MONTELUKAST 10 MG TAB PO SCH (21:58)
[2021-09-06] MEDS: ATORVASTATIN 20 MG TAB PO SCH (21:59)
[2021-09-07] MEDS: traZODone HCL 50 MG TAB PO PRN (00:29)
[2021-09-07 01:52] LABS: Glucose,Whole Blood 262 mg/dL (75-99)
[2021-09-07] MEDS: INSULIN DETEMIR (LEVEMIR) 100 UNIT/ML SYR SQ SCH ×2 (01:59→21:40)
[2021-09-07] MEDS: SODIUM CHLORIDE 0.9% 1,000 ML IV SCH ×2 (04:58→05:50)
[2021-09-07] MEDS: LATANOPROST 0.005% OPHTH DROPS 2.5 ML BTL BOTH EYES SCH ×2 (04:58→21:24)
[2021-09-07] MEDS ORDERED: VANCOMYCIN TROUGH DUE 1 EACH MISC MISCELLANE ONE (07:00)
[2021-09-07 07:10] LABS: Glucose,Whole Blood 220 mg/dL (75-99)
[2021-09-07] MEDS: SYMBICORT 160-4.5 MCG INHALER INHALATION SCH ×2 (08:26→21:10)
[2021-09-07] MEDS: IPRATROPIUM-ALBUTEROL 3 ML NEB INHALATION SCH ×3 (08:26→21:10)
[2021-09-07] MEDS: INSULIN ASPART (NovoLOG) 100 UNIT/ML VIAL SQ SCH ×7 (08:46→21:40)
[2021-09-07] MEDS: VANCOMYCIN 1,750 MG in SODIUM CHLORIDE 0.9% 500 ML 500 ML IVPB SCH (08:49)
[2021-09-07] MEDS: DILTIAZEM CD 120 MG CAP.ER.24H PO SCH ×2 (08:56→21:24)
[2021-09-07] MEDS: metroNIDAZOLE 500 MG TAB PO SCH ×3 (08:56→21:24)
[2021-09-07] MEDS: CYANOCOBALAMIN 500 MCG TAB PO SCH (08:56)
[2021-09-07] MEDS: LORATADINE 10 MG TAB PO SCH (08:56)
[2021-09-07] MEDS: METOPROLOL SUCCINATE (ER) 100 MG TAB.ER.24H PO SCH (08:56)
[2021-09-07] MEDS: APIXABAN 2.5 MG TABLET PO SCH ×2 (08:56→21:23)
[2021-09-07] MEDS: VIT A,C & E-LUTEIN-MINERALS 1 EACH TAB PO SCH ×2 (08:56→21:20)
[2021-09-07] MEDS: CEFEPIME 2 GM in SODIUM CHLORIDE 0.9% 100 ML IVPB SCH ×2 (10:00→21:25)
[2021-09-07] MEDS: ASCORBIC ACID 500 MG TAB PO SCH (10:00)
[2021-09-07] MEDS: CHOLECALCIFEROL 25 MCG (1000 IU) TABLET PO SCH (10:01)
[2021-09-07] MEDS: SERTRALINE 50 MG TAB PO SCH ×3 (10:01→21:20)
[2021-09-07] MEDS: SODIUM BICARBONATE TAB 650 MG TAB PO SCH ×2 (10:01→21:24)
[2021-09-07] MEDS: NON FORMULARY DRUG (Roflumilast [Daliresp] 500 MCG Tablet) PO SCH (10:04)
[2021-09-07] MEDS: FLUTICASONE PROPION INHALATION SCH ×2 (10:04→13:09)
[2021-09-07] MEDS: SALMETEROL INHALATION SCH ×2 (10:04→13:09)
[2021-09-07 11:57] LABS: Glucose,Whole Blood 198 mg/dL (75-99)
--- NOTE | 2021-09-07 13:54 | P.CRDCN ---
History of Present Illness Consult date: 09/07/21 Reason for Consult (text): Tachycardia Chief complaint: Left lower extremity wound History of present illness: This is Anurag Ellis NP dictating a consult on this patient on behalf of Dr. He. The patient was interviewed and examined. HPI: [Patient is a pleasant 80-year-old female who originally presented hospital with left lower extremity wound. Patient is a past medical history includes atrial fibrillation, COPD, diabetes, hyperlipidemia, and hypertension. Ca rtilage was consult due to the patient having tachycardia after her left lower leg wound debridement. Patient has a history of A. fib with RVR, and is normally controlled on Cardizem 120 mg twice a day, and metoprolol succinate 100 daily.] ROS: [No fever, chills, or rigors] [no cough, phlegm, or expectoration] [no nausea, vomiting, or diarrhea] [no hematuria, dysuria] [no musculoskelatal complaints] [no strokes or seizures] [no skin lesions] EXAMINATION: GENERAL: Well-appearing, well-nourished and in no acute distress. NECK: Supple without JVD or thyromegaly. LUNGS: Breath sounds clear to auscultation bilaterally. Respiration equal and unlabored. No wheezes, rales or rhonchi. HEART: Irregular rate and rhythm without murmurs, rubs or gallops. S1 and S2 heard. EXTREMITIES: Normal range of motion, no edema. No clubbing or cyanosis. Peripheral pulses intact and strong. REVIEW OF LABS, ECG & MEDICAL DATA: LABS: White count 12.0, hemoglobin 10.2, sodium 139, potassium 4.2, B1 26, creatinine 1.08, calcium 9.1 EKG: IMAGING: VITALS: Temp 97.8, pulse 113, respirations 21, pressure 131/77, O2 saturation 95% on 3 L nasal cannula IMPRESSION/PLAN: 1. Atrial fibrillation with mildly elevated ventricular response-continue Cardizem 120 mg twice a day, metoprolol 100 mg daily. It is felt at this time the patient's elevated heart rate is due to her infection, and as a results her heart rate should return to normal. Thank you for the consult and allowing us to participate in the care of this patient. Past Medical History Past Medical History: Atrial Fibrillation, COPD, Diabetes Mellitus, Hyperlipidemia, Hypertension Additional Past Medical History / Comment(s): spinal stenosis, knee pain, left ear infection, home oxygen 3L, macular degeneration, right breast cancer History of Any Multi-Drug Resistant Organisms: None Reported Past Surgical History: Appendectomy, Breast Surgery, Cholecystectomy, Hysterectomy, Orthopedic Surgery Additional Past Surgical History / Comment(s): cervical laminectomy, bone graft arm, kidney stone removed, right breast lumpectomy x2 with radiation Past Psychological History: Depression Smoking Status: Former smoker Past Alcohol Use History: Occasional Past Drug Use History: None Reported - Past Family History Mother Additional Family Medical History / Comment(s): breast ca Medications and Allergies Home Medications Medication Instructions Recorded Confirmed Type Atorvastatin [Lipitor] 20 mg PO HS 07/15/14 09/03/21 History Apixaban [Eliquis] 2.5 mg PO BID 01/28/21 09/03/21 History Cetirizine HCl [Zyrtec] 10 mg PO DAILY 01/28/21 09/03/21 History Cyanocobalamin [Vitamin B-12] 1,000 mcg PO DAILY 01/28/21 09/03/21 History Latanoprost Ophth [Xalatan 0.005%] 1 drop BOTH EYES HS 01/28/21 09/03/21 History Montelukast [Singulair] 10 mg PO HS 01/28/21 09/03/21 History Roflumilast [Daliresp] 500 mcg PO DAILY 01/28/21 09/03/21 History Vit C/E/Zn/Coppr/Lutein/Zeaxan 1 cap PO BID 01/28/21 09/03/21 History [Preservision Areds 2 Softgel] traZODone HCL 50 - 100 mg PO HS PRN 01/28/21 09/03/21 History Cholecalciferol [Vitamin D3 (25 25 mcg PO DAILY 02/06/21 09/03/21 History Mcg = 1000 Iu)] Diltiazem Cd [Cardizem Cd] 120 mg PO BID 02/06/21 09/03/21 History INSULIN LISPRO (humaLOG) [humaLOG] 14 units SQ AC-TID 02/06/21 09/03/21 History Insulin Glargine [Lantus] 54 unit SQ HS 02/06/21 09/03/21 History ALPRAZolam [Xanax] 0.25 mg PO DAILY PRN 09/03/21 09/03/21 History Ascorbic Acid [Vitamin C] 1,000 mg PO DAILY 09/03/21 09/03/21 History Fluticasone Propion/Salmeterol 1 puff INHALATION RT-TID 09/03/21 09/03/21 History [Wixela 500-50 Inhub] HYDROcodone/APAP 5-325MG [[place] 1 tab PO Q6H PRN 09/03/21 09/03/21 History 5-325] Ipratropium-Albuterol Nebulize 3 ml INHALATION RT-TID 09/03/21 09/03/21 History [Duoneb 0.5 mg-3 mg/3 ml Soln] Metoprolol Succinate (ER) [Toprol 100 mg PO DAILY 09/03/21 09/03/21 History Xl] Sertraline [Zoloft] 50 mg PO TID 09/03/21 09/03/21 History Sodium Bicarbonate Tab 650 mg PO BID 09/03/21 09/03/21 History Allergies Allergy/AdvReac Type Severity Reaction Status Date / Time diclofenac sodium Allergy Unknown Verified 09/03/21 12:44 [From [facility]] adhesive tape AdvReac Rash/Hives Verified 09/03/21 12:44 Physical Exam Vitals: Vital Signs Temp Pulse Pulse Resp BP BP Pulse Ox 09/07/21 12:41 97.8 F 113 H 21 131/77 95 09/07/21 12:31 91 09/07/21 12:20 92 09/07/21 08:44 151/77 09/07/21 08:37 99 09/07/21 08:26 98 09/07/21 04:18 98.6 F 109 H 20 141/82 94 L 09/06/21 20:51 100 09/06/21 20:36 102 H 09/06/21 19:30 98.4 F 109 H 20 140/85 90 L Intake and Output 09/06/21 09/07/21 09/07/21 22:59 06:59 14:59 Intake Total 550 Balance 550 Intake: Oral 550 Other: Voiding Method Toilet # Voids 3 2 Results 09/05/21 05:19 09/07/21 07:27 Comprehensive Metabolic Panel 09/07/21 Range/Units 07:27 Creatinine 1.08 H (0.52-1.04) mg/dL Current Medications Generic Name Dose Route Start Last Admin Trade Name Freq PRN Reason Stop Dose Admin Acetaminophen 650 mg 09/03/21 13:37 09/06/21 10:10 Acetaminophen Tab 325 Mg Tab PO 650 mg Q6HR PRN Administration Mild Pain or Fever > 100.5 Albuterol/Ipratropium 3 ml 09/03/21 20:00 09/07/21 12:20 Ipratropium-Albuterol 3 Ml Neb INHALATION 3 ml RT-TID JENNIFER Administration Alprazolam 0.25 mg 09/03/21 15:54 09/05/21 13:18 Alprazolam 0.25 Mg Tab PO 0.25 mg DAILY PRN Administration Anxiety Apixaban 2.5 mg 09/03/21 21:00 09/07/21 08:56 Apixaban 2.5 Mg Tablet PO 2.5 mg BID JENNIFER Administration Protocol Ascorbic Acid 1,000 mg 09/04/21 09:00 09/07/21 10:00 Ascorbic Acid 500 Mg Tab PO 1,000 mg DAILY JENNIFER Administration Atorvastatin Calcium 20 mg 09/03/21 21:00 09/06/21 21:59 Atorvastatin 20 Mg Tab PO 20 mg HS JENNIFER Administration Budesonide/Formoterol Fumarate 2 puff 09/05/21 20:00 09/07/21 08:26 Symbicort 160-4.5 Mcg Inhaler INHALATION 2 puff RT-BID JENNIFER Administration Cholecalciferol 25 mcg 09/04/21 09:00 09/07/21 10:01 Cholecalciferol 25 Mcg (1000 Iu) Tablet PO 25 mcg DAILY JENNIFER Administration Collagenase 1 applic 09/06/21 09:00 09/06/21 10:13 Collagenase 250 Unit/Gm Ointment 30 Gm Tube TOPICAL 1 applic DAILY JENNIFER Administration Protocol Cyanocobalamin 1,000 mcg 09/04/21 09:00 09/07/21 08:56 Cyanocobalamin 500 Mcg Tab PO 1,000 mcg DAILY JENNIFER Administration Diltiazem HCl 120 mg 09/03/21 21:00 09/07/21 08:56 Diltiazem Cd 120 Mg Cap.Er.24h PO 120 mg BID JENNIFER Administration Sodium Chloride 1,000 mls @ 20 mls/hr 09/03/21 13:45 09/07/21 05:50 Saline 0.9% IV 20 mls/hr .Q24H JENNIFER Administration Vancomycin HCl 1,750 mg/ 500 mls @ 167 mls/hr 09/04/21 08:00 09/07/21 08:49 Sodium Chloride IVPB 167 mls/hr Q24H JENNIFER Administration Cefepime HCl 2 gm/ Sodium 100 mls @ 25 mls/hr 09/04/21 21:00 09/07/21 10:00 Chloride IVPB 25 mls/hr Q12HR JENNIFER Administration Insulin Aspart 14 unit 09/03/21 17:30 09/07/21 13:15 Insulin Aspart (Novolog) 100 Unit/Ml Vial SQ 14 unit AC-TID JENNIFER Administration Insulin Aspart 0 unit 09/03/21 17:30 09/07/21 13:18 Insulin Aspart (Novolog) 100 Unit/Ml Vial SQ Not Given ACHS [facility] Protocol Insulin Detemir 54 unit 09/03/21 21:00 09/07/21 01:59 Insulin Detemir (Levemir) 100 Unit/Ml Syr SQ 54 unit HS JENNIFER Administration Latanoprost 1 drops 09/03/21 21:00 09/07/21 04:58 Latanoprost 0.005% Ophth Drops 2.5 Ml Btl BOTH EYES Not Given HS JENNIFER Loratadine 10 mg 09/04/21 09:00 09/07/21 08:56 Loratadine 10 Mg Tab PO 10 mg DAILY JENNIFER Administration Metoprolol Succinate 100 mg 09/04/21 09:00 09/07/21 08:56 Metoprolol Succinate (Er) 100 Mg Tab.Er.24h PO 100 mg DAILY JENNIFER Administration Metronidazole 500 mg 09/06/21 16:00 09/07/21 08:56 Metronidazole 500 Mg Tab PO 500 mg TID JENNIFER Administration Montelukast Sodium 10 mg 09/03/21 21:00 09/06/21 21:58 Montelukast 10 Mg Tab PO 10 mg HS JENNIFER Administration Morphine Sulfate 2 mg 09/03/21 15:54 09/06/21 16:43 Morphine Sulfate 2 Mg/Ml Syringe IV 2 mg Q4HR PRN Administration Severe Pain Multivitamins/Minerals 1 each 09/03/21 21:00 09/07/21 08:56 Vit A,C & P-Xclaov-Gewglhib 1 Each Tab PO 1 each BID JENNIFER Administration Naloxone HCl 0.2 mg 09/03/21 13:37 Naloxone 0.4 Mg/Ml 1 Ml Vial IV Q2M PRN Opioid Reversal Non-Formulary Medication 1 puff 09/03/21 20:00 09/07/21 13:09 Fluticasone Propion/Salmeterol [Wixela 500-50 Inhub] INHALATION Not Given RT-TID JENNIFER Non-Formulary Medication 500 mcg 09/04/21 09:00 09/07/21 10:04 Roflumilast [Daliresp] PO Not Given DAILY JENNIFER Ondansetron HCl 4 mg 09/03/21 13:37 Ondansetron 4 Mg/2 Ml Vial IVP Q8HR PRN Nausea And Vomiting Sertraline HCl 50 mg 09/03/21 16:00 09/07/21 10:01 Sertraline 50 Mg Tab PO 50 mg TID JENNIFER Administration Sodium Bicarbonate 650 mg 09/03/21 21:00 09/07/21 10:01 Sodium Bicarbonate Tab 650 Mg Tab PO 650 mg BID JENNIFER Administration Trazodone HCl 50 mg 09/03/21 15:54 09/07/21 00:29 Trazodone Hcl 50 Mg Tab PO 50 mg HS PRN Administration Insomnia Intake and Output 09/06/21 09/07/21 09/07/21 22:59 06:59 14:59 Intake Total 550 Balance 550 Intake: Oral 550 Other: Voiding Method Toilet # Voids 3 2 09/05/21 05:19 09/07/21 07:27
[2021-09-07] MEDS: COLLAGENASE 250 UNIT/GM OINTMENT 30 GM TUBE TOPICAL SCH (15:54)
--- NOTE | 2021-09-07 16:59 | P.PN ---
Subjective Patient is doing fairly well today. She was up in the chair when I saw her. Her pain is relatively well-controlled. Her heart rate is fluctuating between 100-130. Objective - Vital Signs Vital signs: Vital Signs Temp 97.8 F 09/07/21 12:41 Pulse 113 H 09/07/21 12:41 Resp 21 09/07/21 12:41 BP 131/77 09/07/21 12:41 Pulse Ox 95 09/07/21 12:41 Intake & Output 09/06/21 09/07/21 09/07/21 18:59 06:59 18:59 Intake Total 450 100 Balance 450 100 Intake: Oral 450 100 Other: Voiding Method Toilet Toilet Toilet # Voids 3 2 - Exam General: The patient is awake and alert, in no distress Eye: there is normal conjunctiva bilaterally. Neck: The neck is supple, there is no JVD. Cardiovascular: Normal S1-S2, no S3-S4, no murmurs. Respiratory: Lungs clear to auscultation bilaterally Gastrointestinal: Abdomen is soft, nontender Musculoskeletal: There is no pedal edema. Left leg wrapped with clean/dry dressing Neurological:. Speech is normal. Skin: Skin is warm and dry - Labs CBC & Chem 7: 09/05/21 05:19 09/07/21 07:27 Labs: Abnormal Lab Results - Last 24 Hours (Table) 09/06/21 09/06/21 09/06/21 Range/Units 17:04 17:29 20:11 Creatinine (0.52-1.04) mg/dL POC Glucose (mg/dL) 47 L 103 H 173 H (75-99) mg/dL 09/07/21 09/07/21 09/07/21 Range/Units 01:41 07:08 07:27 Creatinine 1.08 H (0.52-1.04) mg/dL POC Glucose (mg/dL) 262 H 220 H (75-99) mg/dL 09/07/21 Range/Units 11:56 Creatinine (0.52-1.04) mg/dL POC Glucose (mg/dL) 198 H (75-99) mg/dL Microbiology - Last 24 Hours (Table) 09/03/21 13:33 Anaerobic Culture - Final Leg - Left Anaerobic Gram Positive Cocci 09/03/21 13:45 Blood Culture - Preliminary Blood No Growth after 96 hours 09/03/21 13:33 Blood Culture - Preliminary Blood No Growth after 96 hours Assessment and Plan Assessment: This is a 80-year-old female with past medical history significant for chronic left lower extremity wound that was sent to the ER from the wound care clinic for further evaluation of her wound and for debridement. There is a list of her medical problems at this during this hospitalization. 1. Chronic left lower extremity wound now infected with surrounding cellulitis 2. Nonhealing chronic diabetic wound status post debridement in the OR on 09/05 3. Type 2 diabetes, relatively well controlled. A1c 7.1 in July 4. Chronic atrial fibrillation on anticoagulation with Eliquis. Heart rate not well controlled on Cardizem 120 mg twice daily and metoprolol XL 100 mg daily. I'll consult cardiology for further evaluation 5. Hyperlipidemia 6. Obstructive sleep apnea, BiPAP ordered for nighttime use but patient is unable to tolerate the mask Today, I reviewed her medication list and lab work results. Patient was started on broad-spectrum antibiotic with IV vancomycin and cefepime. Infectious disease following closely. Cultures pending We will continue pain control with morphine 2 mg every 4 hours as needed. Continue wound care and dressing change as directed We will continue supportive care otherwise. Repeat lab work in the morning.
[2021-09-07 17:19] LABS: Glucose,Whole Blood 189 mg/dL (75-99)
[2021-09-07 20:14] LABS: Glucose,Whole Blood 148 mg/dL (75-99)
[2021-09-07] MEDS: ATORVASTATIN 20 MG TAB PO SCH (21:23)
[2021-09-07] MEDS: MONTELUKAST 10 MG TAB PO SCH (21:23)
[2021-09-07 23:32] LABS: Glucose,Whole Blood 52 mg/dL (75-99)
[2021-09-07] MEDS ORDERED: LORazepam 1 MG TAB PO STA (23:47)
[2021-09-07 23:53] LABS: Glucose,Whole Blood 82 mg/dL (75-99)
[2021-09-08 02:54] LABS: Glucose,Whole Blood 118 mg/dL (75-99)
--- NOTE | 2021-09-08 03:07 | PN ---
PROGRESS NOTE DATE OF SERVICE: 09/07/2021. REASON FOR FOLLOWUP: Bilateral lower extremity wound with cellulitis. INTERVAL HISTORY: Patient is afebrile. The patient is breathing comfortably. Pain to the leg wound is currently controlled. No chest pain, shortness of breath or cough. No abdominal pain or diarrhea. PHYSICAL EXAMINATION: Blood pressure is 113/76, pulse of 115, temperature 98.8. She is 97% on 3 L nasal cannula. General description is an elderly female up in the chair in no distress. Respiratory system: Unlabored breathing, clear to auscultation anteriorly. Heart S1, S2. Regular rate and rhythm. Abdomen soft. No tenderness. LABS: No new labs have been obtained today. Cultures with Pseudomonas and MRSA. DIAGNOSTIC IMPRESSION AND PLAN: Patient with bilateral lower extremity wound with secondary cellulitis. Culture with multiple pathogen. Patient is covered with cefepime and vancomycin. She will get a PICC line. Continue antibiotic for at least 2 weeks. Local care per surgical team. Continue supportive care. MMODL / IJN: [id number] /
[2021-09-08] MEDS: IPRATROPIUM-ALBUTEROL 3 ML NEB INHALATION SCH ×3 (06:59→18:49)
[2021-09-08] MEDS: SYMBICORT 160-4.5 MCG INHALER INHALATION SCH ×2 (06:59→18:49)
[2021-09-08 07:32] LABS: Glucose,Whole Blood 96 mg/dL (75-99)
[2021-09-08] MEDS: FLUTICASONE PROPION INHALATION SCH ×4 (07:43→20:36)
[2021-09-08] MEDS: SALMETEROL INHALATION SCH ×4 (07:43→20:36)
[2021-09-08] MEDS: INSULIN ASPART (NovoLOG) 100 UNIT/ML VIAL SQ SCH ×7 (07:43→20:37)
[2021-09-08] MEDS: VANCOMYCIN 1,750 MG in SODIUM CHLORIDE 0.9% 500 ML 500 ML IVPB SCH (07:47)
[2021-09-08] MEDS: CEFEPIME 2 GM in SODIUM CHLORIDE 0.9% 100 ML IVPB SCH ×2 (09:25→20:40)
[2021-09-08] MEDS: SODIUM BICARBONATE TAB 650 MG TAB PO SCH ×2 (09:25→20:40)
[2021-09-08] MEDS: CYANOCOBALAMIN 500 MCG TAB PO SCH (09:25)
[2021-09-08] MEDS: metroNIDAZOLE 500 MG TAB PO SCH ×3 (09:25→21:09)
[2021-09-08] MEDS: ASCORBIC ACID 500 MG TAB PO SCH (09:25)
[2021-09-08] MEDS: SERTRALINE 50 MG TAB PO SCH ×3 (09:25→21:09)
[2021-09-08] MEDS: LORATADINE 10 MG TAB PO SCH (09:25)
[2021-09-08] MEDS: CHOLECALCIFEROL 25 MCG (1000 IU) TABLET PO SCH (09:26)
[2021-09-08] MEDS: VIT A,C & E-LUTEIN-MINERALS 1 EACH TAB PO SCH ×2 (09:26→20:40)
[2021-09-08] MEDS: NON FORMULARY DRUG (Roflumilast [Daliresp] 500 MCG Tablet) PO SCH (09:26)
[2021-09-08] MEDS: APIXABAN 2.5 MG TABLET PO SCH ×2 (09:26→20:40)
[2021-09-08 10:01] LABS: African American GFR (CKD) 59 (>60 ml/min/1.73 sqM); Blood Urea Nitrogen 25 mg/dL (7-17); Calcium 9.2 mg/dL (8.4-10.2); Carbon Dioxide 33 mmol/L (22-30); Chloride 99 mmol/L (98-107); Glucose 176 mg/dL (74-99); Non-African American GFR(CKD) 51 (>60 ml/min/1.73 sqM)
[2021-09-08 10:14] LABS: Anion Gap 6 mmol/L; Sodium 138 mmol/L (137-145)
[2021-09-08 10:16] LABS: Basophils # (A) 0.1 k/uL (0-0.2); Basophils % (A) 1 %; Eosinophils # (A) 0.4 k/uL (0-0.7); Eosinophils % (A) 3 %; HCT 33.6 % (34.0-46.0); HGB 10.6 gm/dL (11.4-16.0); Hypochromasia Slight; Lymphocytes # (A) 1.2 k/uL (1.0-4.8); Lymphocytes % (A) 10 %; MCHC 31.6 g/dL (31.0-37.0); MCV 91.9 fL (80.0-100.0); Monocytes # (A) 0.6 k/uL (0-1.0); Monocytes % (A) 5 %; Neutrophils # (A) 9.6 k/uL (1.3-7.7); Neutrophils % (A) 79 %; Platelet Count 324 k/uL (150-450); RBC 3.66 m/uL (3.80-5.40); RDW 15.3 % (11.5-15.5); WBC 12.1 k/uL (3.8-10.6)
[2021-09-08] MEDS: METOPROLOL TARTRATE 25 MG TAB PO SCH ×3 (10:18→21:09)
[2021-09-08] MEDS: METOPROLOL SUCCINATE (ER) 100 MG TAB.ER.24H PO SCH (10:19)
[2021-09-08] MEDS: DILTIAZEM CD 120 MG CAP.ER.24H PO SCH (10:19)
[2021-09-08] MEDS: DILTIAZEM CD 180 MG CAP.ER.24H PO SCH ×2 (10:19→21:09)
[2021-09-08 10:47] LABS: Magnesium 1.7 mg/dL (1.6-2.3)
--- NOTE | 2021-09-08 11:43 | P.PN ---
Subjective Patient is a pleasant 80-year-old female who originally presented hospital with left lower extremity wound. Patient is a past medical history includes chronic persistent atrial fibrillation on Eliquis, COPD, type 2 diabetes, hyperlipidemia, and hypertension. She follows in the office with Dr. Umanzor. Cardiology was on consult due to the patient having tachycardia after her left lower leg wound debridement. Most recent echocardiogram 10/2020 revealed an EF of 40-45%. 24 hour Holter monitor in January 2021 revealed ventricular fibrillations controlled ventricular rates, occasional PVCs, one episode of atrial fibrillation with RVR. Patient seen and examined at bedside, no acute distress. She continues to be tachycardic in the 140s when ambulating. She denies any chest pain, shortness of breath, light headedness, dizziness. Blood pressure 157/76, heart rate 133, afebrile, maintaining oxygen saturations on 4 L nasal cannula. She is currently maintained on Cardizem 120 mg twice a day, metoprolol succinate 100 mg daily. Telemetry reviewed patient in atrial fibrillation heart rate trend 100-130. GENERAL: In no acute distress. NECK: Supple without JVD or thyromegaly. LUNGS: Breath sounds clear to auscultation bilaterally. Respiration equal and unlabored. No wheezes, rales or rhonchi. HEART: Irregular rate and rhythm without murmurs, rubs or gallops. S1 and S2 heard. EXTREMITIES: Normal range of motion. No clubbing or cyanosis. ASSESSMENT -Chronic persistent atrial fibrillation with rapid ventricular response, on Eliquis -Chronic left lower extremity wound, cellulitis -Nonhealing chronic diabetic wound s/p debridement on 09/05 -COPD -Type 2 diabetes -Hyperlipidemia -Hypertension -Obstructive sleep apnea PLAN -Obtain a 2D echocardiogram -Increase Cardizem to 180 mg twice a day. -Stop metoprolol succinate and transition to metoprolol tartrate 75 mg 3 times a day -Continue cardiac telemetry -Further recommendations based on clinical course Objective - Vital Signs Vital signs: Vital Signs Temp 98 F 09/08/21 04:39 Pulse 88 09/08/21 11:23 Resp 18 09/08/21 04:39 BP 157/76 09/08/21 10:21 Pulse Ox 98 09/08/21 06:59 Intake & Output 09/07/21 09/08/21 09/08/21 18:59 06:59 18:59 Intake Total 810 Balance 810 Intake: Intake, IV Titration 260 Amount Cefepime 2 gm In Sodium 100 Chloride 0.9% 100 ml @ 25 mls/hr IVPB Q12HR JENNIFER Rx #:[id number] Sodium Chloride 0.9% 1, 160 000 ml @ 20 mls/hr IV . Q24H JENNIFER Rx#:[id number] Oral 550 Other: Voiding Method Toilet Toilet # Voids 4 4 - Labs CBC & Chem 7: 09/08/21 09:04 09/08/21 09:04 Labs: Abnormal Lab Results - Last 24 Hours (Table) 09/07/21 09/07/21 09/07/21 Range/Units 11:56 17:17 20:13 WBC (3.8-10.6) k/uL RBC (3.80-5.40) m/uL Hgb (11.4-16.0) gm/dL Hct (34.0-46.0) % Neutrophils # (1.3-7.7) k/uL Carbon Dioxide (22-30) mmol/L BUN (7-17) mg/dL Glucose (74-99) mg/dL POC Glucose (mg/dL) 198 H 189 H 148 H (75-99) mg/dL 09/07/21 09/08/21 09/08/21 Range/Units 23:31 02:50 09:04 WBC 12.1 H (3.8-10.6) k/uL RBC 3.66 L (3.80-5.40) m/uL Hgb 10.6 L (11.4-16.0) gm/dL Hct 33.6 L (34.0-46.0) % Neutrophils # 9.6 H (1.3-7.7) k/uL Carbon Dioxide (22-30) mmol/L BUN (7-17) mg/dL Glucose (74-99) mg/dL POC Glucose (mg/dL) 52 L 118 H (75-99) mg/dL 09/08/21 Range/Units 09:04 WBC (3.8-10.6) k/uL RBC (3.80-5.40) m/uL Hgb (11.4-16.0) gm/dL Hct (34.0-46.0) % Neutrophils # (1.3-7.7) k/uL Carbon Dioxide 33 H (22-30) mmol/L BUN 25 H (7-17) mg/dL Glucose 176 H (74-99) mg/dL POC Glucose (mg/dL) (75-99) mg/dL Microbiology - Last 24 Hours (Table) 09/03/21 13:33 Anaerobic Culture - Final Leg - Left Anaerobic Gram Positive Cocci 09/03/21 13:45 Blood Culture - Preliminary Blood No Growth after 96 hours 09/03/21 13:33 Blood Culture - Preliminary Blood No Growth after 96 hours
[2021-09-08 12:09] LABS: Glucose,Whole Blood 281 mg/dL (75-99)
--- NOTE | 2021-09-08 12:09 | ECHOF ---
Referral Reason:LV function MEASUREMENTS -------- HEIGHT: 165.1 cm WEIGHT: 97.5 kg BP: 157/76 RVIDd: 2.4 cm (< 3.3) IVSd: 1.4 cm (0.6 - 1.1) LVIDd: 4.7 cm (3.9 - 5.3) LVPWd: 1.3 cm (0.6 - 1.1) IVSs: 1.7 cm LVIDs: 4.1 cm LVPWs: 1.8 cm LA Diam: 4.1 cm (2.7 - 3.8) Ao Diam: 3.0 cm (2.0 - 3.7) AV Cusp: 1.7 cm (1.5 - 2.6) MV EXCURSION: 19.544 mm (> 18.000) MV EF SLOPE: 100 mm/s (70 - 150) EPSS: 1.8 cm RAP: 15.00 mmHg RVSP: 44.88 mmHg FINDINGS -------- Atrial fibrillation. This was a technically difficult study with suboptimal views. The left ventricular size is normal. There is moderate concentric left ventricular hypertrophy. O verall left ventricular systolic function is moderate-severely impaired with, an EF between 30 - 35 % . The right ventricle is normal in size. The left atrium is mildly dilated. The right atrium is normal in size. Interatrial and interventricular septum intact. There is mild aortic valve sclerosis. Trace amount of aortic regurgitation. The mitral valve leaflets are mildly thickened. Mild mitral annular calcification present. Mild tricuspid regurgitation present. There is mild pulmonary hypertension. The right ventricular systolic pressure, as measured by Doppler, is 44.88mmHg. The pulmonic valve was not well visualized. The aortic root size is normal. The inferior vena cava is dilated with no significant inspiratory collapse which is consistent estima shruti right atrial pressure of >15 mmHg. There is no pericardial effusion. CONCLUSIONS -------- 1. This was a technically difficult study with suboptimal views. 2. The left ventricular size is normal. 3. There is moderate concentric left ventricular hypertrophy. 4. Overall left ventricular systolic function is moderate-severely impaired with, an EF between 30 - 35 %. 5. The left atrium is mildly dilated. 6. There is mild aortic valve sclerosis. 7. Trace amount of aortic regurgitation. 8. The mitral valve leaflets are mildly thickened. 9. Mild mitral annular calcification present. 10. Mild tricuspid regurgitation present. 11. There is mild pulmonary hypertension. 12. The right ventricular systolic pressure, as measured by Doppler, is 44.88mmHg. 13. The inferior vena cava is dilated with no significant inspiratory collapse which is consistent es timated right atrial pressure of >15 mmHg. 14. There is no pericardial effusion. TALENT SCOUT: Cinthia Malhotra RDCS
--- NOTE | 2021-09-08 12:53 | P.PN ---
Subjective Patient is doing fairly well today. She was up in the chair when I saw her. Her pain is relatively well-controlled. Objective - Vital Signs Vital signs: Vital Signs Temp 98 F 09/08/21 04:39 Pulse 89 09/08/21 11:30 Resp 18 09/08/21 04:39 BP 157/76 09/08/21 10:21 Pulse Ox 98 09/08/21 06:59 Intake & Output 09/07/21 09/08/21 09/08/21 18:59 06:59 18:59 Intake Total 810 Balance 810 Intake: Intake, IV Titration 260 Amount Cefepime 2 gm In Sodium 100 Chloride 0.9% 100 ml @ 25 mls/hr IVPB Q12HR JENNIFER Rx #:[id number] Sodium Chloride 0.9% 1, 160 000 ml @ 20 mls/hr IV . Q24H JENNIFER Rx#:[id number] Oral 550 Other: Voiding Method Toilet Toilet # Voids 4 4 - Exam General: The patient is awake and alert, in no distress Eye: there is normal conjunctiva bilaterally. Neck: The neck is supple, there is no JVD. Cardiovascular: Normal S1-S2, no S3-S4, no murmurs. Respiratory: Lungs clear to auscultation bilaterally Gastrointestinal: Abdomen is soft, nontender Musculoskeletal: There is no pedal edema. Left leg wrapped with clean/dry dressing Neurological:. Speech is normal. Skin: Skin is warm and dry - Labs CBC & Chem 7: 09/08/21 09:04 09/08/21 09:04 Labs: Abnormal Lab Results - Last 24 Hours (Table) 09/07/21 09/07/21 09/07/21 Range/Units 17:17 20:13 23:31 WBC (3.8-10.6) k/uL RBC (3.80-5.40) m/uL Hgb (11.4-16.0) gm/dL Hct (34.0-46.0) % Neutrophils # (1.3-7.7) k/uL Carbon Dioxide (22-30) mmol/L BUN (7-17) mg/dL Glucose (74-99) mg/dL POC Glucose (mg/dL) 189 H 148 H 52 L (75-99) mg/dL 09/08/21 09/08/21 09/08/21 Range/Units 02:50 09:04 09:04 WBC 12.1 H (3.8-10.6) k/uL RBC 3.66 L (3.80-5.40) m/uL Hgb 10.6 L (11.4-16.0) gm/dL Hct 33.6 L (34.0-46.0) % Neutrophils # 9.6 H (1.3-7.7) k/uL Carbon Dioxide 33 H (22-30) mmol/L BUN 25 H (7-17) mg/dL Glucose 176 H (74-99) mg/dL POC Glucose (mg/dL) 118 H (75-99) mg/dL 09/08/21 Range/Units 11:58 WBC (3.8-10.6) k/uL RBC (3.80-5.40) m/uL Hgb (11.4-16.0) gm/dL Hct (34.0-46.0) % Neutrophils # (1.3-7.7) k/uL Carbon Dioxide (22-30) mmol/L BUN (7-17) mg/dL Glucose (74-99) mg/dL POC Glucose (mg/dL) 281 H (75-99) mg/dL Microbiology - Last 24 Hours (Table) 09/03/21 13:33 Anaerobic Culture - Final Leg - Left Anaerobic Gram Positive Cocci 09/03/21 13:45 Blood Culture - Preliminary Blood No Growth after 96 hours 09/03/21 13:33 Blood Culture - Preliminary Blood No Growth after 96 hours Assessment and Plan Assessment: This is a 80-year-old female with past medical history significant for chronic left lower extremity wound that was sent to the ER from the wound care clinic for further evaluation of her wound and for debridement. There is a list of her medical problems at this during this hospitalization. 1. Chronic left lower extremity wound now infected with surrounding cellulitis 2. Nonhealing chronic diabetic wound status post debridement in the OR on 09/05 3. Type 2 diabetes, relatively well controlled. A1c 7.1 in July 4. Chronic atrial fibrillation on anticoagulation with Eliquis. Heart rate not well controlled on Cardizem 120 mg twice daily and metoprolol XL 100 mg daily. Cardiology consulted and her regimen was adjusted. Echocardiogram ordered 5. Hyperlipidemia 6. Obstructive sleep apnea, BiPAP ordered for nighttime use but patient is unable to tolerate the mask Today, I reviewed her medication list and lab work results. Patient was started on broad-spectrum antibiotic with IV vancomycin and cefepime. Infectious disease following closely. Cultures pending PICC line ordered for today Continue wound care and dressing change as directed Discharge planning to [facility] tomorrow We will continue supportive care otherwise.
--- NOTE | 2021-09-08 12:58 | P.PN ---
Progress Note - Text Progress Note Date: 09/08/21 REASON FOR FOLLOWUP: Bilateral lower extremity wound with cellulitis. INTERVAL HISTORY: Patient is afebrile. The patient is breathing comfortably. Pain to the leg wound is currently controlled. No chest pain, shortness of breath or cough. No abdominal pain or diarrhea. PHYSICAL EXAMINATION: Blood pressure is 113/76, pulse of 115, temperature 98.8. She is 97% on 3 L nasal cannula. General description is an elderly female up in the chair in no distress. Respiratory system: Unlabored breathing, clear to auscultation anteriorly. Heart S1, S2. Regular rate and rhythm. Abdomen soft. No tenderness. LABS: No new labs have been obtained today. Cultures with Pseudomonas and MRSA. DIAGNOSTIC IMPRESSION AND PLAN: Patient with bilateral lower extremity wound with secondary cellulitis. Culture with multiple pathogen. Patient is covered with cefepime and vancomycin which she will Continue antibiotic for 2 weeks alomg withoral flagyl . Local care per surgical team. Continue supportive care.
--- NOTE | 2021-09-08 16:14 | IR ---
PICC LINE PLACEMENT: HISTORY: Infection requiring long-term antibiotic therapy PROCEDURE: Ultrasound and fluoroscopic guidance of PICC line placement. COMPLICATIONS: None ANESTHESIA: 1. 1% Lidocaine locally. FINDINGS/TECHNIQUE: The procedure was explained to the patient. The risks, complications, benefits and alternatives were discussed and any questions were answered. Informed consent was obtained. The patient was placed supine on the fluoroscopic table and prepped and draped in the usual sterile fash ion. Utilizing a 21 gauge needle and sonographic and fluoroscopic guidance, access in the left ceph alic vein was achieved and there is placement of a 0.018 guidewire. The vein is patent. A 4-F sheat h was placed over the guidewire. The guidewire and dilator were removed and a 4-F. PICC line was carissa jyotsna through the sheath with the tip at the level of the SVC. The sheath was removed, the catheter wa s flushed and sutured into position. The patient was stable throughout the procedure and remained st able upon discharge from the Department of Radiology. The vein puncture was patent under ultrasound. A hernandez scale image was obtained to document patency of the vein punctured. All elements of the maximal barrier technique were utilized. FLUOROSCOPY TIME: 0.4 minutes and 1 images submitted IMPRESSION: Successful PICC line placement under ultrasound and fluoroscopic guidance.
[2021-09-08] MEDS: COLLAGENASE 250 UNIT/GM OINTMENT 30 GM TUBE TOPICAL SCH (16:38)
[2021-09-08] MEDS: ACETAMINOPHEN TAB 325 MG TAB PO PRN ×2 (16:40→23:38)
[2021-09-08 17:28] LABS: Glucose,Whole Blood 103 mg/dL (75-99)
[2021-09-08 20:24] LABS: Glucose,Whole Blood 123 mg/dL (75-99)
[2021-09-08] MEDS: SODIUM CHLORIDE 0.9% 1,000 ML IV SCH (20:35)
[2021-09-08] MEDS: ATORVASTATIN 20 MG TAB PO SCH (20:40)
[2021-09-08] MEDS: MONTELUKAST 10 MG TAB PO SCH (20:40)
[2021-09-08] MEDS: INSULIN DETEMIR (LEVEMIR) 100 UNIT/ML SYR SQ SCH (20:41)
[2021-09-08] MEDS: LATANOPROST 0.005% OPHTH DROPS 2.5 ML BTL BOTH EYES SCH (20:42)
[2021-09-08] MEDS: ALPRAZolam 0.25 MG TAB PO PRN (21:11)
[2021-09-09 03:42] LABS: Glucose,Whole Blood 62 mg/dL (75-99)
[2021-09-09 06:55] LABS: Glucose,Whole Blood 70 mg/dL (75-99)
[2021-09-09] MEDS: FLUTICASONE PROPION INHALATION SCH (07:03)
[2021-09-09] MEDS: INSULIN ASPART (NovoLOG) 100 UNIT/ML VIAL SQ SCH ×7 (07:03→21:59)
[2021-09-09] MEDS: SALMETEROL INHALATION SCH (07:03)
[2021-09-09] MEDS: SYMBICORT 160-4.5 MCG INHALER INHALATION SCH ×2 (07:25→20:23)
[2021-09-09] MEDS: IPRATROPIUM-ALBUTEROL 3 ML NEB INHALATION SCH ×3 (07:25→20:22)
[2021-09-09] MEDS: ASCORBIC ACID 500 MG TAB PO SCH (08:44)
[2021-09-09] MEDS: VANCOMYCIN 1,750 MG in SODIUM CHLORIDE 0.9% 500 ML 500 ML IVPB SCH (08:44)
[2021-09-09] MEDS: APIXABAN 2.5 MG TABLET PO SCH ×2 (08:44→20:59)
[2021-09-09] MEDS: CEFEPIME 2 GM in SODIUM CHLORIDE 0.9% 100 ML IVPB SCH ×2 (08:44→20:59)
[2021-09-09] MEDS: CYANOCOBALAMIN 500 MCG TAB PO SCH (08:45)
[2021-09-09] MEDS: DILTIAZEM CD 180 MG CAP.ER.24H PO SCH (08:45)
[2021-09-09] MEDS: COLLAGENASE 250 UNIT/GM OINTMENT 30 GM TUBE TOPICAL SCH (08:45)
[2021-09-09] MEDS: CHOLECALCIFEROL 25 MCG (1000 IU) TABLET PO SCH (08:45)
[2021-09-09] MEDS: SERTRALINE 50 MG TAB PO SCH ×3 (08:46→20:59)
[2021-09-09] MEDS: METOPROLOL TARTRATE 25 MG TAB PO SCH ×3 (08:46→20:59)
[2021-09-09] MEDS: SODIUM BICARBONATE TAB 650 MG TAB PO SCH ×2 (08:46→20:59)
[2021-09-09] MEDS: LORATADINE 10 MG TAB PO SCH (08:46)
[2021-09-09] MEDS: metroNIDAZOLE 500 MG TAB PO SCH ×3 (08:46→20:59)
[2021-09-09] MEDS: VIT A,C & E-LUTEIN-MINERALS 1 EACH TAB PO SCH ×2 (08:46→21:01)
[2021-09-09] MEDS: ACETAMINOPHEN TAB 325 MG TAB PO PRN (08:55)
[2021-09-09] MEDS: NON FORMULARY DRUG (Roflumilast [Daliresp] 500 MCG Tablet) PO SCH (09:36)
[2021-09-09 10:54] LABS: ALT 9 U/L (4-34); AST 18 U/L (14-36); African American GFR (CKD) 63 (>60 ml/min/1.73 sqM); Albumin 2.9 g/dL (3.5-5.0); Albumin/Globulin Ratio 1.1; Alkaline Phosphatase 93 U/L (38-126); Anion Gap 5 mmol/L; Blood Urea Nitrogen 27 mg/dL (7-17); Calcium 8.9 mg/dL (8.4-10.2); Carbon Dioxide 34 mmol/L (22-30); Chloride 99 mmol/L (98-107); Globulin 2.7 g/dL; Glucose 181 mg/dL (74-99); Magnesium 1.6 mg/dL (1.6-2.3); Non-African American GFR(CKD) 55 (>60 ml/min/1.73 sqM); Potassium 4.1 mmol/L (3.5-5.1); Sodium 138 mmol/L (137-145); Total Bilirubin 0.3 mg/dL (0.2-1.3); Total Protein 5.6 g/dL (6.3-8.2)
[2021-09-09] MEDS: FUROSEMIDE 10 MG/ML 4 ML VIAL IV SCH ×3 (11:14→23:45)
[2021-09-09] MEDS: AMIODARONE 200 MG TAB PO SCH ×2 (11:14→20:59)
--- NOTE | 2021-09-09 11:53 | P.PN ---
Subjective Patient is a pleasant 80-year-old female who originally presented hospital with left lower extremity wound. Patient is a past medical history includes chronic persistent atrial fibrillation on Eliquis, COPD, type 2 diabetes, hyperlipidemia, and hypertension. She follows in the office with Dr. Umanzor. Cardiology was on consult due to the patient having tachycardia after her left lower leg wound debridement. Most recent echocardiogram 10/2020 revealed an EF of 40-45%. 24 hour Holter monitor in January 2021 revealed ventricular fibrillations controlled ventricular rates, occasional PVCs, one episode of atrial fibrillation with RVR. Echocardiogram on 09/08 revealed EF of 30-35%, moderate concentric left ventricular hypertrophy, mild aortic valve sclerosis, mild tricuspid regurgitation, mild pulmonary hypertension with an RVSP of 45 mmHg Patient seen and examined at bedside, no acute distress. She underwent a left cephalic PICC line insertion on 09/08. Telemetry reviewed, her heart rate have improved she continues to be in atrial fibrillation with HR trends 90s-120. She continues to be tachycardic with ambulation. She also had 13 beat run NSVT and two 2-4beat NSVT runs. She denies any chest pain, shortness of breath, light headedness, dizziness. Blood pressure 141/68, heart rate 108, afebrile, maintaining oxygen saturations on 3 L nasal cannula. She is currently maintained on Cardizem 180 mg twice a day, metoprolol tartrate 75mg TID. Lab data reviewed, sodium 130, potassium 4.1, BUN 27, serum creatinine 0.9, magnesium 1.6 , liver enzymes within normal limits GENERAL: In no acute distress. NECK: Supple without JVD or thyromegaly. LUNGS: Breath sounds diminished to auscultation bilaterally. Respiration equal and unlabored. No wheezes, rales or rhonchi. HEART: Irregular rate and rhythm. Systolic murmur, No rubs or gallops. S1 and S2 heard. EXTREMITIES: Normal range of motion. No clubbing or cyanosis. ASSESSMENT -Chronic persistent atrial fibrillation with rapid ventricular response, on Eliquis -Cardiomyopathy EF 30-35%, most likely non-ischemic due to atrial fibrillation with rapid ventricular response -Acute systolic heart failure -Chronic left lower extremity wound, cellulitis -Nonhealing chronic diabetic wound s/p debridement on 09/05 -COPD -Type 2 diabetes -Hyperlipidemia -Hypertension -Obstructive sleep apnea PLAN -Repeat CMP today -Stop cardizem -Start amiodarone 200mg BID -Start IV diuresis with IV Lasix 40mg Q8hr -Monitor I/Os, renal function and electrolytes -Continue home Eliquis 2.5mg BID -Continue metoprolol tartrate 75 mg TID -Continue cardiac telemetry -Further recommendations based on clinical course Objective - Vital Signs Vital signs: Vital Signs Temp 97.8 F 09/09/21 04:40 Pulse 84 09/09/21 11:17 Resp 18 09/09/21 04:40 BP 141/68 09/09/21 08:40 Pulse Ox 96 09/09/21 08:40 Intake & Output 09/08/21 09/09/21 09/09/21 18:59 06:59 18:59 Intake Total 1040 600 Balance 1040 600 Intake: Oral 1040 600 Other: Voiding Method Toilet Toilet Toilet # Voids 3 - Labs CBC & Chem 7: 09/08/21 09:04 09/09/21 10:15 Labs: Abnormal Lab Results - Last 24 Hours (Table) 09/08/21 09/08/21 09/08/21 Range/Units 11:58 17:26 20:23 Carbon Dioxide (22-30) mmol/L BUN (7-17) mg/dL Glucose (74-99) mg/dL POC Glucose (mg/dL) 281 H 103 H 123 H (75-99) mg/dL Total Protein (6.3-8.2) g/dL Albumin (3.5-5.0) g/dL 09/09/21 09/09/21 09/09/21 Range/Units 03:40 06:53 10:15 Carbon Dioxide 34 H (22-30) mmol/L BUN 27 H (7-17) mg/dL Glucose 181 H (74-99) mg/dL POC Glucose (mg/dL) 62 L 70 L (75-99) mg/dL Total Protein 5.6 L (6.3-8.2) g/dL Albumin 2.9 L (3.5-5.0) g/dL Microbiology - Last 24 Hours (Table) 09/03/21 13:33 Blood Culture - Preliminary Blood No Growth after 120 hours 09/03/21 13:45 Blood Culture - Preliminary Blood No Growth after 120 hours
[2021-09-09 12:22] LABS: Glucose,Whole Blood 161 mg/dL (75-99)
[2021-09-09 14:07] VITALS: BMI 35.7
--- NOTE | 2021-09-09 14:21 | PN ---
PROGRESS NOTE DATE OF SERVICE: 09/09/2021 REASON FOR FOLLOWUP: Bilateral lower extremity wounds and cellulitis. INTERVAL HISTORY: The patient is afebrile. The patient is breathing comfortably. The patient denies having any chest pain or shortness of breath or cough. Has been complaining of some stinging pain after dressing changes. No abdominal pain or diarrhea. Currently waiting for placement. PHYSICAL EXAMINATION: Her blood pressure is 141/68, pulse 74, temperature 98. She is 96% on 3 L nasal cannula. General description is an elderly female up in the chair in no distress. RESPIRATORY SYSTEM: Unlabored breathing. Clear to auscultation anteriorly. HEART: S1, S2. Regular rate and rhythm. ABDOMEN: Soft. No tenderness. Bilateral legs are currently wrapped. No obvious drainage on the dressing. LABS: BUN of 27, creatinine 0.98. DIAGNOSTIC IMPRESSION AND PLAN: Patient with bilateral lower extremity traumatic wounds with cellulitis, left greater than right. Patient is currently covered with cefepime and Flagyl; to continue for 2 weeks. Local care as ordered. Continue supportive care. MMODL / IJN: [id number] /
--- NOTE | 2021-09-09 14:47 | CDI ---
the debridement in question is an excisional debridement removing necrotic devitalized tissue slough and subcutaneous tissue. Doc of the debridement in this case is an excisional debridement removing subcutaneous tissue slough and necrotic tissue.umentation Clarification Form 2nd Request Date: 09/05/2021 05:15:11 PM From: Cheryl Muñoz RN, CCDS Admit Date: 09/03/2021 03:09:00 PM Patient Name: Preeti Orozco Visit Number: [id number] ATTENTION: The Clinical Documentation Specialists (CDI) and [facility] Coding Staff appreciate your assistance in clarifying documentation. Please respond to the clarification below the line at the bottom and electronically sign. The CDI & [facility] Coding staff will review the response and follow-up if needed. Please note: Queries are made part of the Legal Health Record. If you have any questions, please contact the author of this message via ITS. Dr. Howard Lassiter debridement is documented 09/05/2021. Additional clarification regarding the procedure is requested. History/Risk Factors: Atrial Fibrillation, COPD, DM2, HLD, HTN, Spinal Stenosis, Home o2 3l NC, Macular Degeneration, Right Breast Cancer Clinical Indicators: 09/05 Procedure Pre-op Diagnosis: "Ulcerations bilateral lower legs with fatty layer exposed." Treatment: 09/05 Procedure Note: Bilateral subcutaneous debridements. We utilized a sharp curette to remove all nonviable loops tissue including some frail nonviable granulation tissue down to into and including bleeding subcutaneous tissue." Please clarify the type of procedure performed: [ ] Excisional debridement (the removal of necrotic, devitalized tissue or slough by means of cutting away of tissue) [ ] Non-excisional debridement (the removal of necrotic, devitalized tissue or slough by means of flushing, brushing, or washing. (Irrigation) [ ] Other; please specify [ ] Unable to determine Five elements required for accurate and compliant documentation of a debridement: Technique used (e.g., excisional, excised, cutting, brushing, jet lavage etc.) Instrument(s) used (e.g., scalpel, curette, etc.) Nature of the tissue removed (e.g., necrotic, devitalized tissues, non-viable tissue, etc.) Appearance and size of the wound (e.g., down to fresh bleeding tissue, 7cm x 10cm, etc.) Depth of the debridement* (e.g., skin, subcutaneous tissue, fascia, muscle, bone, etc.) (Template Last Revised: January 2021) MTDD
[2021-09-09] MEDS ORDERED: ALPRAZolam 0.5 MG TAB PO PRN (14:53)
[2021-09-09 17:31] LABS: Glucose,Whole Blood 376 mg/dL (75-99)
--- NOTE | 2021-09-09 18:22 | P.PN ---
<Channing Rose - Last Filed: 09/09/21 18:04> Subjective Progress Note Date: 09/09/21 Hospital course: Patient is a 80-year-old female with a past medical history of hypertension, hyperlipidemia, atrial fibrillation on anticoagulation with Eliquis, COPD, insulin-dependent diabetes mellitus, and chronic left lower extremity wound. Patient presented to the emergency department on 09/03/21 for evaluation of cellulitis surrounding chronic left lower extremity wound. Patient was admitted under our services with consultation to infectious disease and vascular surgery. She was treated with IV antibiotics vancomycin and cefepime. Patient underwent bilateral subcutaneous debridements to ulcerations of bilateral lower extremities in the OR by Dr. Ramirez on 09/05/21. Wound cultures resulted positive for pseudomonas aeruginosa, MRSA, and group B Strep agalactiae. Flagyl was added to current antibiotic regimen of vancomycin and cefepime. Blood cultures negative 144 hours. During hospitalization patient had run of A. fib RVR, and cardiology was consulted. Patient underwent an echocardiogram revealing a moderately to severely impaired EF between 30 and 35% with mild pulmonary hypertension and no significant valvular abnormalities. Patient was started on Lasix 40 mg IVP for diuresis. Medication changes made for RVR. Plans for discharge to [facility] for continued IV antibiotics. Due to persistent A. fib RVR additional medication changes made and Cardizem was changed to amiodarone. We will continue to watch patient overnight with plans to resume discharged to [facility] tomorrow morning. Physical exam: Patient seen and fully evaluated at the bedside. Patient reports chronic back pain. And states difficult time sleeping at night. Orders placed for Xanax nightly as needed to assist with sleep. Labs reviewed showing a persistently elevated CO2 of 34 otherwise no significant abnormalities. Vital signs stable. Heart rate ranging from 80s to 110s over the past 24 hours. Vital signs reviewed and stable. General: Nontoxic, no distress and appears stated age. Morbidly obese. Derm: Skin warm and dry, normal coloration for ethnicity. Dressings clean, dry, and intact to bilateral lower extremities. Head: Atraumatic, normocephalic and symmetric. Eyes: no lid lag, and anicteric sclera Mouth: no lip lesions, mucus membranes moist Cardiovascular: Irregularly irregular rhythm no murmur, positive posterior tibial pulses bilaterally, and cap refill < 2 seconds. Lungs: Respirations even, regular, and unlabored on room air. Lungs CTA bilaterally, no rhonchi, no rales, no wheezing, and no accessory muscle usage. Abdominal: soft, nontender to palpation, no guarding, no appreciable organomegaly Ext: ROM intact. No gross muscle atrophy,bilateral lower extremitya, no contractures Neuro: Speech clear, face symmetrical and CN II-XII grossly intact with no noted focal neuro deficits Psych: Alert and oriented to person, place, time, and situation. Appropriate and pleasant affect. Assessment and Plan of Care: Chronic left lower extremity ulcers with surrounding cellulitis Patient underwent bilateral subcutaneous debridements to ulcerations of bilateral lower extremities in the OR by Dr. Ramirez on 09/05/21. Wound cultures resulted positive for pseudomonas aeruginosa, MRSA, and group B Strep agalactiae. Continue antibiotics with IV vancomycin and cefepime along with oral Flagyl Infectious disease and vascular surgery following Plans for discharge to [facility] for continued outpatient IV antibiotics. Atrial fibrillation with RVR Continue anticoagulation with Eliquis Multiple medication changes were made. Patient currently remains on metoprolol 75 mg 3 times daily. Cardizem discontinued and patient started on amiodarone. Cardiology following. Telemetry monitoring Systolic heart failure with EF of 30-35% Continue Lasix 40 mg IVP every 8 hours. Continued close monitoring of I's and O's. Daily weights Cardiology following, appreciate further recommendations. Telemetry monitoring Insulin-dependent diabetes mellitus with A1c of 7.1 Continue scheduled NovoLog 14 units subcu with meals Continue long-acting Levemir 54 units nightly Continue glycemic protocol with NovoLog sliding scale. Hypertension Monitor vital signs and continue daily medication regimen. Hyperlipidemia Continue daily medication regimen with atorvastatin. Continue heart healthy diet. COPD Provide oxygenation as needed to maintain SpO2 equal to or greater than 90%. Breathing treatments as needed CODE STATUS: DO NOT RESUSCITATE/DO NOT INTUBATE DVT prophylaxis: Eliquis Discussed with: Patient and RN Anticipated discharge date: Tomorrow morning Anticipated discharge place: [facility] A total of 45 minutes was spent on the care of this complex patient more than 50% of the time was spent in counseling and care coordination. Objective - Vital Signs Vital signs: Vital Signs Temp 97.8 F 09/09/21 04:40 Pulse 108 H 09/09/21 08:40 Resp 18 09/09/21 04:40 BP 141/68 09/09/21 08:40 Pulse Ox 96 09/09/21 08:40 Intake & Output 09/08/21 09/09/21 09/09/21 18:59 06:59 18:59 Intake Total 1040 600 Balance 1040 600 Intake: Oral 1040 600 Other: Voiding Method Toilet Toilet # Voids 3 - Labs CBC & Chem 7: 09/08/21 09:04 09/09/21 10:15 Labs: Abnormal Lab Results - Last 24 Hours (Table) 09/08/21 09/08/21 09/08/21 Range/Units 11:58 17:26 20:23 POC Glucose (mg/dL) 281 H 103 H 123 H (75-99) mg/dL 09/09/21 09/09/21 Range/Units 03:40 06:53 POC Glucose (mg/dL) 62 L 70 L (75-99) mg/dL Microbiology - Last 24 Hours (Table) 09/03/21 13:33 Blood Culture - Preliminary Blood No Growth after 120 hours 09/03/21 13:45 Blood Culture - Preliminary Blood No Growth after 120 hours <Liz Chavarria - Last Filed: 09/09/21 18:30> Subjective Patient seen and evaluated by me independently. Patient was also seen by PATRICIA, the original author of this note. I am in agreement with the subjective, physical exam, and assessment and plan as documented with the addition/changes of my exam and assessment below. Gen: awake, alert HEENT: normocephalic, atraumatic, good hearing acuity, moist mucous membranes Resp: good air exchange, breathing comfortably with no accessory muscle use CVS: good distal perfusion x 4, GI: soft, NTTP, ND : no SPT, no CVAT, lopez catheter is not present MSK: + pitting edema, no clubbing Neuro: non-focal, moving all extremities Psych: cooperative, euthymic mood Plan: Continue antibiotics Plan for discharge tomorrow to [facility] Holding tonight's Lasix dose due to patient's complaint of urinating all night and being unable to sleep Objective - Vital Signs Vital signs: Vital Signs Temp 98.3 F 09/09/21 15:39 Pulse 106 H 09/09/21 15:39 Resp 22 09/09/21 15:39 BP 129/90 09/09/21 15:39 Pulse Ox 95 09/09/21 15:39 Intake & Output 09/08/21 09/09/21 09/09/21 18:59 06:59 18:59 Intake Total 1040 600 590 Output Total 900 Balance 1040 600 -310 Weight 97.522 kg Intake: Oral 1040 600 590 Output: Urine 900 Other: Voiding Method Toilet Toilet Toilet # Voids 3 - Labs CBC & Chem 7: 09/08/21 09:04 09/09/21 10:15 Labs: Abnormal Lab Results - Last 24 Hours (Table) 09/08/21 09/09/21 09/09/21 Range/Units 20:23 03:40 06:53 Carbon Dioxide (22-30) mmol/L BUN (7-17) mg/dL Glucose (74-99) mg/dL POC Glucose (mg/dL) 123 H 62 L 70 L (75-99) mg/dL Total Protein (6.3-8.2) g/dL Albumin (3.5-5.0) g/dL 09/09/21 09/09/21 09/09/21 Range/Units 10:15 12:21 17:29 Carbon Dioxide 34 H (22-30) mmol/L BUN 27 H (7-17) mg/dL Glucose 181 H (74-99) mg/dL POC Glucose (mg/dL) 161 H 376 H (75-99) mg/dL Total Protein 5.6 L (6.3-8.2) g/dL Albumin 2.9 L (3.5-5.0) g/dL Microbiology - Last 24 Hours (Table) 09/03/21 13:45 Blood Culture - Final Blood No Growth after 144 hours 09/03/21 13:33 Blood Culture - Final Blood No Growth after 144 hours
[2021-09-09 18:45] LABS: Glucose,Whole Blood 155 mg/dL (75-99)
[2021-09-09 20:04] LABS: Glucose,Whole Blood 54 mg/dL (75-99)
[2021-09-09 20:30] LABS: Glucose,Whole Blood 154 mg/dL (75-99)
[2021-09-09] MEDS: ATORVASTATIN 20 MG TAB PO SCH (20:59)
[2021-09-09] MEDS: MONTELUKAST 10 MG TAB PO SCH (20:59)
[2021-09-09] MEDS: LATANOPROST 0.005% OPHTH DROPS 2.5 ML BTL BOTH EYES SCH (21:01)
[2021-09-09] MEDS: traZODone HCL 50 MG TAB PO PRN (21:04)
[2021-09-09] MEDS: INSULIN DETEMIR (LEVEMIR) 100 UNIT/ML SYR SQ SCH (21:59)
[2021-09-10 02:04] LABS: Glucose,Whole Blood 136 mg/dL (75-99)
[2021-09-10] MEDS: SODIUM CHLORIDE 0.9% 1,000 ML IV SCH ×2 (05:14→15:22)
[2021-09-10 07:01] LABS: Glucose,Whole Blood 137 mg/dL (75-99)
[2021-09-10] MEDS: IPRATROPIUM-ALBUTEROL 3 ML NEB INHALATION SCH ×2 (07:18→12:17)
[2021-09-10] MEDS: SYMBICORT 160-4.5 MCG INHALER INHALATION SCH (07:18)
[2021-09-10] MEDS ORDERED: FUROSEMIDE 40 MG TAB PO SCH (09:15)
[2021-09-10] MEDS: APIXABAN 2.5 MG TABLET PO SCH (09:24)
[2021-09-10] MEDS: ASCORBIC ACID 500 MG TAB PO SCH (09:24)
[2021-09-10] MEDS: VANCOMYCIN 1,750 MG in SODIUM CHLORIDE 0.9% 500 ML 500 ML IVPB SCH (09:25)
[2021-09-10] MEDS: INSULIN ASPART (NovoLOG) 100 UNIT/ML VIAL SQ SCH ×4 (09:25→13:25)
[2021-09-10] MEDS: metroNIDAZOLE 500 MG TAB PO SCH (09:25)
[2021-09-10] MEDS: AMIODARONE 200 MG TAB PO SCH (09:25)
[2021-09-10] MEDS: SERTRALINE 50 MG TAB PO SCH (09:25)
[2021-09-10] MEDS: METOPROLOL TARTRATE 25 MG TAB PO SCH (09:25)
[2021-09-10] MEDS: CHOLECALCIFEROL 25 MCG (1000 IU) TABLET PO SCH (09:25)
[2021-09-10] MEDS: LORATADINE 10 MG TAB PO SCH (09:25)
[2021-09-10] MEDS: SODIUM BICARBONATE TAB 650 MG TAB PO SCH (09:25)
[2021-09-10] MEDS: CYANOCOBALAMIN 500 MCG TAB PO SCH (09:25)
[2021-09-10] MEDS: VIT A,C & E-LUTEIN-MINERALS 1 EACH TAB PO SCH (09:26)
[2021-09-10] MEDS: CEFEPIME 2 GM in SODIUM CHLORIDE 0.9% 100 ML IVPB SCH (09:26)
--- NOTE | 2021-09-10 09:45 | P.DS ---
Providers Date of admission: 09/03/21 15:09 Expected date of discharge: 09/10/21 Attending physician: Reji Castelan Consults: 09/03/21 15:54 Consult Physician Routine Consulting Provider: Jeanette Welch Consult Reason/Comments: Infected wound of the left leg Do you want consulting provider notified?: Yes 09/06/21 12:07 Consult Physician Routine Consulting Provider: Nikolai He Consult Reason/Comments: A. fib with RVR Do you want consulting provider notified?: Yes Primary care physician: Cedrick Ruiz MD Hospital Course: Discharge Diagnosis: Chronic left lower extremity ulcers with surrounding cellulitis cultures resulted positive for pseudomonas aeruginosa, MRSA, and group B Strep agalactiae. Atrial fibrillation with RVR Acute on chronic Systolic heart failure with EF of 30-35% Insulin-dependent diabetes mellitus with A1c of 7.1 Hypertension Hyperlipidemia COPD without acute exacerbation Hospital Course: Patient is a 80-year-old female with a past medical history of hypertension, hyperlipidemia, atrial fibrillation on anticoagulation with Eliquis, COPD, ins ulin-dependent diabetes mellitus, and chronic left lower extremity wound. Patient presented to the emergency department on 09/03/21 for evaluation of cellulitis surrounding chronic left lower extremity wound. Patient was admitted under our services with consultation to infectious disease and vascular surgery. She was treated with IV antibiotics vancomycin and cefepime. Patient underwent bilateral subcutaneous debridements to ulcerations of bilateral lower extremities in the OR by Dr. Ramirez on 09/05/21. Wound cultures resulted positive for pseudomonas aeruginosa, MRSA, and group B Strep agalactiae. Flagyl was added to current antibiotic regimen of vancomycin and cefepime. Blood cultures negative 144 hours. During hospitalization patient had run of A. fib RVR, and cardiology was consulted. Patient underwent an echocardiogram revealing a moderately to severely impaired EF between 30 and 35% with mild pulmonary hypertension and no significant valvular abnormalities. Patient was started on Lasix 40 mg IVP for diuresis. Medication changes made for RVR. Heart rate controlled 80s to 90s over the past 24 hours with no further episodes of RVR. Patient medically stable for discharge to [facility] for continued IV antibiotics. Patient being transferred to [facility] to continue cefepime, vancomycin, and Flagyl. In addition patient being discharged with Lasix 40 mg daily, amiodarone 200 mg twice daily, metoprolol 75 mg 3 times daily, and Symbicort. Wound care to continue with Santyl cream. Upon discharge from [facility] patient to follow-up with infectious disease, cardiology, and PCP. Physical exam: Patient seen and fully evaluated at the bedside. She was ambulatory to restroom without any difficulties and denied any shortness of breath with exertion. Patient's condition is stable at this time. She is maintained a controlled ventricular rate over the past 24 hours ranging between 80 to 90s bpm. Patient denies having any headache, lightheadedness, dizziness, chest pain, palpitations, or shortness of breath. Vital signs reviewed and stable. General: Nontoxic, no distress and appears stated age. Morbidly obese. Derm: Skin warm and dry, normal coloration for ethnicity. Dressings clean, dry, and intact to bilateral lower extremities. Head: Atraumatic, normocephalic and symmetric. Eyes: no lid lag, and anicteric sclera Mouth: no lip lesions, mucus membranes moist Cardiovascular: Irregularly irregular rhythm, no murmur, and cap refill < 2 seconds. Lungs: Respirations even, regular, and unlabored on room air. Lungs diminished at bases otherwise CTA bilaterally, no rhonchi, no rales, no wheezing, and no accessory muscle usage. Abdominal: soft, nontender to palpation, no guarding, no appreciable organom egaly Ext: ROM intact. No gross muscle atrophy, bilateral lower extremity edema, no contractures Neuro: Speech clear, face symmetrical and CN II-XII grossly intact with no noted focal neuro deficits Psych: Alert and oriented to person, place, time, and situation. Appropriate and pleasant affect. A total of 45 minutes of time were spent preparing this complex discharge summary. Patient Condition at Discharge: Stable Plan - Discharge Summary Discharge Rx Participant: Yes New Discharge Prescriptions: New Furosemide [Lasix] 40 mg PO DAILY 30 Days #30 tab Amiodarone [Cordarone] 200 mg PO BID 30 Days #60 tab Metoprolol Tartrate [Lopressor] 75 mg PO TID 30 Days #270 tab Collagenase [Santyl] 1 applic TOPICAL DAILY gm Budesonide-Formot 160-4.5 Mcg [Symbicort 160-4.5 Mcg Inhaler] 2 puff INHALATION RT-BID 30 Days #1 inh Continue Atorvastatin [Lipitor] 20 mg PO HS Montelukast [Singulair] 10 mg PO HS Vit C/E/Zn/Coppr/Lutein/Zeaxan [Preservision Areds 2 Softgel] 1 cap PO BID Latanoprost Ophth [Xalatan 0.005%] 1 drop BOTH EYES HS Cetirizine HCl [Zyrtec] 10 mg PO DAILY Cyanocobalamin [Vitamin B-12] 1,000 mcg PO DAILY Apixaban [Eliquis] 2.5 mg PO BID Roflumilast [Daliresp] 500 mcg PO DAILY traZODone HCL 50 - 100 mg PO HS PRN PRN Reason: Insomnia Cholecalciferol [Vitamin D3 (25 Mcg = 1000 Iu)] 25 mcg PO DAILY Insulin Glargine [Lantus Vial] 54 unit SQ HS INSULIN LISPRO (humaLOG) [humaLOG] 14 units SQ AC-TID Fluticasone Propion/Salmeterol [[place]ixela 500-50 Inhub] 1 puff INHALATION RT-TID Ascorbic Acid [Vitamin C] 1,000 mg PO DAILY Sodium Bicarbonate Tab 650 mg PO BID HYDROcodone/APAP 5-325MG [[place] 5-325] 1 tab PO Q6H PRN PRN Reason: Pain Sertraline [Zoloft] 50 mg PO TID ALPRAZolam [Xanax] 0.25 mg PO DAILY PRN PRN Reason: Anxiety Ipratropium-Albuterol Nebulize [Duoneb 0.5 mg-3 mg/3 ml Soln] 3 ml INHALATION RT-TID Discontinued Diltiazem Cd [Cardizem Cd] 120 mg PO BID Metoprolol Succinate (ER) [Toprol Xl] 100 mg PO DAILY Discharge Medication List Atorvastatin [Lipitor] 20 mg PO HS 07/15/14 [History] Apixaban [Eliquis] 2.5 mg PO BID 01/28/21 [History] Cetirizine HCl [Zyrtec] 10 mg PO DAILY 01/28/21 [History] Cyanocobalamin [Vitamin B-12] 1,000 mcg PO DAILY 01/28/21 [History] Latanoprost Ophth [Xalatan 0.005%] 1 drop BOTH EYES HS 01/28/21 [History] Montelukast [Singulair] 10 mg PO HS 01/28/21 [History] Roflumilast [Daliresp] 500 mcg PO DAILY 01/28/21 [History] Vit C/E/Zn/Coppr/Lutein/Zeaxan [Preservision Areds 2 Softgel] 1 cap PO BID 01/28/21 [History] traZODone HCL 50 - 100 mg PO HS PRN 01/28/21 [History] Cholecalciferol [Vitamin D3 (25 Mcg = 1000 Iu)] 25 mcg PO DAILY 02/06/21 [History] INSULIN LISPRO (humaLOG) [humaLOG] 14 units SQ AC-TID 02/06/21 [History] Insulin Glargine [Lantus Vial] 54 unit SQ HS 02/06/21 [History] ALPRAZolam [Xanax] 0.25 mg PO DAILY PRN 09/03/21 [History] Ascorbic Acid [Vitamin C] 1,000 mg PO DAILY 09/03/21 [History] Fluticasone Propion/Salmeterol [[place] 500-50 Inhub] 1 puff INHALATION RT-TID 09/03/21 [History] HYDROcodone/APAP 5-325MG [[place] 5-325] 1 tab PO Q6H PRN 09/03/21 [History] Ipratropium-Albuterol Nebulize [Duoneb 0.5 mg-3 mg/3 ml Soln] 3 ml INHALATION RT-TID 09/03/21 [History] Sertraline [Zoloft] 50 mg PO TID 09/03/21 [History] Sodium Bicarbonate Tab 650 mg PO BID 09/03/21 [History] Amiodarone [Cordarone] 200 mg PO BID 30 Days #60 tab 09/10/21 [Rx] Budesonide-Formot 160-4.5 Mcg [Symbicort 160-4.5 Mcg Inhaler] 2 puff INHALATION RT-BID 30 Days #1 inh 09/10/21 [Rx] Collagenase [Santyl] 1 applic TOPICAL DAILY gm 09/10/21 [Rx] Furosemide [Lasix] 40 mg PO DAILY 30 Days #30 tab 09/10/21 [Rx] Metoprolol Tartrate [Lopressor] 75 mg PO TID 30 Days #270 tab 09/10/21 [Rx] Follow up Appointment(s)/Referral(s): Cedrick Ruiz MD [Primary Care Provider] - 1-2 days Jeanette Welch MD [STAFF PHYSICIAN] - 2 Weeks Celestine Umanzor MD [STAFF PHYSICIAN] - 2 Weeks Activity/Diet/Wound Care/Special Instructions: Transfer to [facility] for continued IV antibiotic therapy and wound care. Discharge Disposition: TRANSFER TO SNF/ECF
[2021-09-10] MEDS: NON FORMULARY DRUG (Roflumilast [Daliresp] 500 MCG Tablet) PO SCH (10:20)
[2021-09-10] MEDS: ACETAMINOPHEN TAB 325 MG TAB PO PRN (10:57)
[2021-09-10 11:55] LABS: Glucose,Whole Blood 434 mg/dL (75-99)
[2021-09-10 12:28] VITALS: PULSE 98
--- NOTE | 2021-09-10 12:29 | P.PN ---
Subjective Patient is a pleasant 80-year-old female who originally presented hospital with left lower extremity wound. Patient is a past medical history includes chronic persistent atrial fibrillation on Eliquis, COPD, type 2 diabetes, hyperlipidemia, and hypertension. She follows in the office with Dr. Umanzor. Cardiology was on consult due to the patient having tachycardia after her left lower leg wound debridement. Most recent echocardiogram 10/2020 revealed an EF of 40-45%. 24 hour Holter monitor in January 2021 revealed ventricular fibrillations controlled ventricular rates, occasional PVCs, one episode of atrial fibrillation with RVR. Echocardiogram on 09/08 revealed EF of 30-35%, moderate concentric left ventricular hypertrophy, mild aortic valve sclerosis, mild tricuspid regurgitation, mild pulmonary hypertension with an RVSP of 45 mmHg Patient seen and examined at bedside, no acute distress. She underwent a left cephalic PICC line insertion on 09/08. Telemetry reviewed, her heart rate have improved she continues to be in atrial fibrillation with HR trends 90s-120. She continues to be tachycardic with ambulation. She also had another 12 beat run NSVT early this morning. She denies any chest pain, shortness of breath, light headedness, dizziness. Blood pressure 136/82, heart rate 95, afebrile, maintaining a saturation liters nasal cannula. She is currently maintained on amiodarone 200 mg twice a day, metoprolol tartrate 75mg TID. IV Lasix stopped, patient transition to PO Lasix 40mg daily. Lab data reviewed, serum creatinine 1.2, magnesium 1.6 GENERAL: In no acute distress. NECK: Supple without JVD or thyromegaly. LUNGS: Breath sounds diminished to auscultation bilaterally. Respiration equal and unlabored. No wheezes, rales or rhonchi. HEART: Irregular rate and rhythm. Systolic murmur, No rubs or gallops. S1 and S2 heard. EXTREMITIES: Normal range of motion. No clubbing or cyanosis. ASSESSMENT -Chronic persistent atrial fibrillation with rapid ventricular response, on Eliquis -Cardiomyopathy EF 30-35%, most likely non-ischemic due to atrial fibrillation with rapid ventricular response -Acute systolic heart failure -Chronic left lower extremity wound, cellulitis -Nonhealing chronic diabetic wound s/p debridement on 09/05 -COPD -Type 2 diabetes -Hyperlipidemia -Hypertension -Obstructive sleep apnea PLAN -Continue amiodarone 200mg BID for 1 week, then transition to amiodarone 200mg daily for another week. -Continue PO Lasix 40mg daily -Continue home Eliquis 2.5mg BID -Continue metoprolol tartrate 75 mg TID -Follow up with Dr. Umanzor in 1-2 weeks for follow up and further management of atrial fibrillation. Objective - Vital Signs Vital signs: Vital Signs Temp 97.9 F 09/10/21 05:00 Pulse 94 09/10/21 07:30 Resp 16 09/10/21 07:30 BP 136/82 09/10/21 05:00 Pulse Ox 96 09/10/21 07:18 Intake & Output 09/09/21 09/10/21 09/10/21 18:59 06:59 18:59 Intake Total 590 800 240 Output Total 900 2800 Balance -310 -2000 240 Weight 97.522 kg Intake: Oral 590 800 240 Output: Urine 900 2800 Other: Voiding Method Toilet Toilet # Voids 2 - Labs CBC & Chem 7: 09/08/21 09:04 09/10/21 05:49 Labs: Abnormal Lab Results - Last 24 Hours (Table) 09/09/21 09/09/21 09/09/21 Range/Units 10:15 12:21 17:29 Carbon Dioxide 34 H (22-30) mmol/L BUN 27 H (7-17) mg/dL Creatinine (0.52-1.04) mg/dL Glucose 181 H (74-99) mg/dL POC Glucose (mg/dL) 161 H 376 H (75-99) mg/dL Total Protein 5.6 L (6.3-8.2) g/dL Albumin 2.9 L (3.5-5.0) g/dL 09/09/21 09/09/21 09/09/21 Range/Units 18:43 20:02 20:28 Carbon Dioxide (22-30) mmol/L BUN (7-17) mg/dL Creatinine (0.52-1.04) mg/dL Glucose (74-99) mg/dL POC Glucose (mg/dL) 155 H 54 L 154 H (75-99) mg/dL Total Protein (6.3-8.2) g/dL Albumin (3.5-5.0) g/dL 09/10/21 09/10/2109/10/21 Range/Units 01:52 05:49 06:58 Carbon Dioxide (22-30) mmol/L BUN (7-17) mg/dL Creatinine 1.26 H (0.52-1.04) mg/dL Glucose (74-99) mg/dL POC Glucose (mg/dL) 136 H 137 H (75-99) mg/dL Total Protein (6.3-8.2) g/dL Albumin (3.5-5.0) g/dL Microbiology - Last 24 Hours (Table) 09/03/21 13:45 Blood Culture - Final Blood No Growth after 144 hours 09/03/21 13:33 Blood Culture - Final Blood No Growth after 144 hours
[2021-09-10 12:41] VITALS: BP 123/83; RESP 20; TEMP 98.5
--- NOTE | 2021-09-10 14:51 | PN ---
PROGRESS NOTE DATE OF SERVICE: 09/10/2021. REASON FOR FOLLOW UP: Bilateral lower extremity wound and cellulitis. INTERVAL HISTORY: Patient is afebrile. The patient is currently breathing comfortably. No chest pain, shortness of breath, cough. No abdominal pain. Some pain to the lower extremities especially with dressing changes. PHYSICAL EXAMINATION: Blood pressure 123/83 with pulse of 98, temperature 98.5. She is 96% on 3 L nasal cannula. General description is an elderly female up in the bed in no distress. Respiratory system: Unlabored breathing, clear to auscultation anteriorly. Heart S1, S2. Regular rate and rhythm. Abdomen soft, no tenderness. Legs are currently wrapped up. No obvious drainage on the dressing. LABS: Creatinine is mildly elevated . DIAGNOSTIC IMPRESSION AND PLAN: Patient with bilateral lower extremity wound left greater than the right with secondary cellulitis status post debridement and received about a week of IV antibiotic, to continue for another week with vancomycin, cefepime, Flagyl. Local care with Santyl. Close outpatient followup. MMARACELIL / IJN: [id number] /
[2021-09-10] MEDS: COLLAGENASE 250 UNIT/GM OINTMENT 30 GM TUBE TOPICAL SCH (15:20)
[2021-09-11] MEDS ORDERED: VANCOMYCIN TROUGH DUE 1 EACH MISC MISCELLANE ONE (07:00)
== END 2021-09-10 15:30 | DRG 622 ==
LOC: EC 12:30 → 5NMEDONC 15:09
PROVIDERS: ADMIT Internal Medicine; ATTEND Internal Medicine
PROC: 0JBN0ZZ Excision of Right Lower Leg Subcutaneous Tissue and Fascia, Open Approach (ICD-10-PCS; 2021-09-05)
PROC: 0JBP0ZZ Excision of Left Lower Leg Subcutaneous Tissue and Fascia, Open Approach (ICD-10-PCS; principal; 2021-09-05 11:00)
PROC: 05HF33Z Insertion of Infusion Device into Left Cephalic Vein, Percutaneous Approach (ICD-10-PCS; 2021-09-08)
DX: E11.622 Type 2 diabetes mellitus with other skin ulcer (principal); I50.23 Acute on chronic systolic (congestive) heart failure; L03.116 Cellulitis of left lower limb; I47.2 Ventricular tachycardia; I48.19 Other persistent atrial fibrillation; I42.8 Other cardiomyopathies; L03.90 Cellulitis, unspecified; L97.212 Non-pressure chronic ulcer of right calf with fat layer exposed; L97.229 Non-pressure chronic ulcer of left calf with unspecified severity; L03.115 Cellulitis of right lower limb; E78.5 Hyperlipidemia, unspecified; F32.9 Major depressive disorder, single episode, unspecified; G47.33 Obstructive sleep apnea (adult) (pediatric); I27.20 Pulmonary hypertension, unspecified; I11.0 Hypertensive heart disease with heart failure; I35.8 Other nonrheumatic aortic valve disorders; I83.009 Varicose veins of unspecified lower extremity with ulcer of unspecified site; J44.9 Chronic obstructive pulmonary disease, unspecified; Z20.822 Contact with and (suspected) exposure to COVID-19; Z66 Do not resuscitate; Z79.01 Long term (current) use of anticoagulants; Z79.2 Long term (current) use of antibiotics; Z79.4 Long term (current) use of insulin; Z79.899 Other long term (current) drug therapy; Z80.3 Family history of malignant neoplasm of breast; Z85.3 Personal history of malignant neoplasm of breast; Z87.442 Personal history of urinary calculi; Z87.891 Personal history of nicotine dependence; Z90.710 Acquired absence of both cervix and uterus; Z88.8 Allergy status to other drugs, medicaments and biological substances; Z91.040 Latex allergy status
CPT/HCPCS: 36415; 36573; 80048; 80053; 80202; 82565; 83605; 83735; 85025; 87040; 87070; 87075; 87077; 87186; 87205; 87635; 93005; 93306; 94640; 94660; 94760; 96374; 99284

== ENCOUNTER 2021-10-02 09:06 | Emergency (ER) | payer MEDICARE, BC ==
[2021-10-02 09:11] VITALS: TEMP 98.9
--- NOTE | 2021-10-02 09:50 | ED ---
Anxiety HPI - General Chief Complaint: Anxiety Stated Complaint: High HR/Anxiety Time Seen by Provider: 10/02/21 09:31 Source: patient, family, RN notes reviewed, old records reviewed Mode of arrival: wheelchair - History of Present Illness Initial Comments: 79-year-old female who states she's been very anxious she does have a history of A. fib she states is her heart rate is been elevated. She's not been eating well not been sleeping well states she's not functioning very well. She's not use her CPAP machine for about a week she recently had her medications changed so she's and 75 mg 3 times a day of metoprolol from 100 mg twice a day states she's not able to function. No complaints of chest pain no overt shortness of breath this time no cough fevers chills or sweats. She was being treated for left leg wound. MD Complaint: anxiety, other - Related Data Home Medications: Home Medications Medication Instructions Recorded Confirmed Atorvastatin [Lipitor] 20 mg PO HS 07/15/14 09/03/21 Apixaban [Eliquis] 2.5 mg PO BID 01/28/21 09/03/21 Cetirizine HCl [Zyrtec] 10 mg PO DAILY 01/28/21 09/03/21 Cyanocobalamin [Vitamin B-12] 1,000 mcg PO DAILY 01/28/21 09/03/21 Latanoprost Ophth [Xalatan 0.005%] 1 drop BOTH EYES HS 01/28/21 09/03/21 Montelukast [Singulair] 10 mg PO HS 01/28/21 09/03/21 Roflumilast [Daliresp] 500 mcg PO DAILY 01/28/21 09/03/21 Vit C/E/Zn/Coppr/Lutein/Zeaxan 1 cap PO BID 01/28/21 09/03/21 [Preservision Areds 2 Softgel] traZODone HCL 50 - 100 mg PO HS PRN 01/28/21 09/03/21 Cholecalciferol [Vitamin D3 (25 25 mcg PO DAILY 02/06/21 09/03/21 Mcg = 1000 Iu)] INSULIN LISPRO (humaLOG) [humaLOG] 14 units SQ AC-TID 02/06/21 09/03/21 Insulin Glargine [Lantus Vial] 54 unit SQ HS 02/06/21 09/03/21 ALPRAZolam [Xanax] 0.25 mg PO DAILY PRN 09/03/21 09/03/21 Ascorbic Acid [Vitamin C] 1,000 mg PO DAILY 09/03/21 09/03/21 Fluticasone Propion/Salmeterol 1 puff INHALATION RT-TID 09/03/21 09/03/21 [Wixela 500-50 Inhub] HYDROcodone/APAP 5-325MG [[place] 1 tab PO Q6H PRN 09/03/21 09/03/21 5-325] Ipratropium-Albuterol Nebulize 3 ml INHALATION RT-TID 09/03/21 09/03/21 [Duoneb 0.5 mg-3 mg/3 ml Soln] Sertraline [Zoloft] 50 mg PO TID 09/03/21 09/03/21 Sodium Bicarbonate Tab 650 mg PO BID 09/03/21 09/03/21 Previous Rx's Medication Instructions Recorded Amiodarone [Cordarone] 200 mg PO BID 60 Days #120 tab 09/10/21 Budesonide-Formot 160-4.5 Mcg 2 puff INHALATION RT-BID 30 Days 09/10/21 [Symbicort 160-4.5 Mcg Inhaler] #1 inh Cefepime [Maxipime] 2 gm IVPB Q12HR #0 each 09/10/21 Collagenase [Santyl] 1 applic TOPICAL DAILY gm 09/10/21 Furosemide [Lasix] 40 mg PO DAILY 30 Days #30 tab 09/10/21 Metoprolol Tartrate [Lopressor] 75 mg PO TID 30 Days #270 tab 09/10/21 Vancomycin 1,750 mg IVPB Q24H each 09/10/21 metroNIDAZOLE [Flagyl] 500 mg PO TID tab 09/10/21 Allergies/Adverse Reactions: Allergies Allergy/AdvReac Type Severity Reaction Status Date / Time diclofenac sodium Allergy Unknown Verified 10/02/21 09:11 [From Voltaren] adhesive tape AdvReac Rash/Hives Verified 10/02/21 09:11 Review of Systems ROS Statement: Those systems with pertinent positive or pertinent negative responses have been documented in the HPI. ROS Other: All systems not noted in ROS Statement are negative. Past Medical History Past Medical History: Atrial Fibrillation, COPD, Diabetes Mellitus, Hyperlipidemia, Hypertension Additional Past Medical History / Comment(s): spinal stenosis, knee pain, left ear infection, home oxygen 3L, macular degeneration, right breast cancer History of Any Multi-Drug Resistant Organisms: MRSA Date of last positivie culture/infection: 09/03/21 MDRO Source:: Left Leg Past Surgical History: Appendectomy, Breast Surgery, Cholecystectomy, Hysterectomy, Orthopedic Surgery Additional Past Surgical History / Comment(s): cervical laminectomy, bone graft arm, kidney stone removed, right breast lumpectomy x2 with radiation, left leg wound repair Past Psychological History: Depression Smoking Status: Former smoker Past Alcohol Use History: Occasional Past Drug Use History: None Reported - Past Family History Mother Additional Family Medical History / Comment(s): breast ca General Exam - General Exam Comments Initial Comments: This a well-developed well-nourished awake alert oriented x 3 female Limitations: no limitations General appearance: alert, anxious Head exam: Present: atraumatic, normocephalic, normal inspection Eye exam: Present: normal appearance, PERRL, EOMI. Absent: scleral icterus, conjunctival injection, periorbital swelling ENT exam: Present: mucous membranes dry Neck exam: Present: normal inspection. Absent: tenderness, meningismus, lymphadenopathy Respiratory exam: Present: normal lung sounds bilaterally. Absent: respiratory distress, wheezes, rales, rhonchi, stridor Cardiovascular Exam: Present: tachycardia, irregular rhythm. Absent: systolic murmur, diastolic murmur, rubs, gallop, clicks GI/Abdominal exam: Present: soft, normal bowel sounds. Absent: distended, tenderness, guarding, rebound, rigid Extremities exam: Present: full ROM, normal capillary refill, other (Left lower extremity dressing noted.). Absent: tenderness, pedal edema, joint swelling, calf tenderness Back exam: Present: normal inspection Neurological exam: Present: alert, oriented X3, CN II-XII intact Psychiatric exam: Present: normal affect, normal mood Skin exam: Present: warm, dry, intact, normal color. Absent: rash Course Vital Signs 10/02/21 10/02/21 09:07 12:26 Temperature 98.9 F Pulse Rate 116 H 110 H Respiratory 22 20 Rate Blood Pressure 147/70 142/93 O2 Sat by Pulse 96 95 Oximetry Medical Decision Making - Medical Decision Making Evaluation the patient reveals that she is mildly vitamin plea otherwise no acute findings patient will be discharged back to receive her current care she is to use her CPAP machine until Arise there is a filter report. - Lab Data Result diagrams: 10/02/21 10:14 10/02/21 10:14 Lab Results 10/02/21 10/02/21 10/02/21 Range/Units 10:14 10:14 10:14 WBC 10.4 (3.8-10.6) k/uL RBC 3.57 L (3.80-5.40) m/uL Hgb 10.6 L (11.4-16.0) gm/dL Hct 33.0 L (34.0-46.0) % MCV 92.4 (80.0-100.0) fL MCH 29.6 (25.0-35.0) pg MCHC 32.1 (31.0-37.0) g/dL RDW 16.9 H (11.5-15.5) % Plt Count 198 (150-450) k/uL MPV 9.8 Neutrophils % 72 % Lymphocytes % 15 % Monocytes % 8 % Eosinophils % 2 % Basophils % 1 % Neutrophils # 7.5 (1.3-7.7) k/uL Lymphocytes # 1.6 (1.0-4.8) k/uL Monocytes # 0.9 (0-1.0) k/uL Eosinophils # 0.2 (0-0.7) k/uL Basophils # 0.1 (0-0.2) k/uL Anisocytosis Slight PT 11.2 (9.0-12.0) sec INR 1.1 (<1.2) APTT 24.7 (22.0-30.0) sec Sodium 141 (137-145) mmol/L Potassium 4.0 (3.5-5.1) mmol/L Chloride 101 (98-107) mmol/L Carbon Dioxide 32 H (22-30) mmol/L Anion Gap 8 mmol/L BUN 43 H (7-17) mg/dL Creatinine 1.52 H (0.52-1.04) mg/dL Est GFR (CKD-EPI)AfAm 37 (>60 ml/min/1.73 sqM) Est GFR (CKD-EPI)NonAf 32 (>60 ml/min/1.73 sqM) Glucose 153 H (74-99) mg/dL Calcium 9.2 (8.4-10.2) mg/dL Magnesium 1.7 (1.6-2.3) mg/dL Total Bilirubin 0.4 (0.2-1.3) mg/dL AST 23 (14-36) U/L ALT 15 (4-34) U/L Alkaline Phosphatase 93 (38-126) U/L Troponin I (0.000-0.034) ng/mL Total Protein 6.6 (6.3-8.2) g/dL Albumin 3.5 (3.5-5.0) g/dL TSH 4.460 (0.465-4.680) mIU/L Urine Color Urine Appearance (Clear) Urine pH (5.0-8.0) Ur Specific [place] (1.001-1.035) Urine Protein (Negative) Urine Glucose (UA) (Negative) Urine Ketones (Negative) Urine Blood (Negative) Urine Nitrite (Negative) Urine Bilirubin (Negative) Urine Urobilinogen (<2.0) mg/dL Ur Leukocyte Esterase (Negative) Urine RBC (0-5) /hpf Urine WBC (0-5) /hpf Ur Squamous Epith Cells (0-4) /hpf Amorphous Sediment (None) /hpf Urine Bacteria (None) /hpf Hyaline Casts (0-2) /lpf Urine Mucus (None) /hpf 10/02/21 10/02/21 Range/Units 10:14 12:22 WBC (3.8-10.6) k/uL RBC (3.80-5.40) m/uL Hgb (11.4-16.0) gm/dL Hct (34.0-46.0) % MCV (80.0-100.0) fL MCH (25.0-35.0) pg MCHC (31.0-37.0) g/dL RDW (11.5-15.5) % Plt Count (150-450) k/uL MPV Neutrophils % % Lymphocytes % % Monocytes % % Eosinophils % % Basophils % % Neutrophils # (1.3-7.7) k/uL Lymphocytes # (1.0-4.8) k/uL Monocytes # (0-1.0) k/uL Eosinophils # (0-0.7) k/uL Basophils # (0-0.2) k/uL Anisocytosis PT (9.0-12.0) sec INR (<1.2) APTT (22.0-30.0) sec Sodium (137-145) mmol/L Potassium (3.5-5.1) mmol/L Chloride (98-107) mmol/L Carbon Dioxide (22-30) mmol/L Anion Gap mmol/L BUN (7-17) mg/dL Creatinine (0.52-1.04) mg/dL Est GFR (CKD-EPI)AfAm (>60 ml/min/1.73 sqM) Est GFR (CKD-EPI)NonAf (>60 ml/min/1.73 sqM) Glucose (74-99) mg/dL Calcium (8.4-10.2) mg/dL Magnesium (1.6-2.3) mg/dL Total Bilirubin (0.2-1.3) mg/dL AST (14-36) U/L ALT (4-34) U/L Alkaline Phosphatase (38-126) U/L Troponin I 0.020 (0.000-0.034) ng/mL Total Protein (6.3-8.2) g/dL Albumin (3.5-5.0) g/dL TSH (0.465-4.680) mIU/L Urine Color Yellow Urine Appearance Cloudy H (Clear) Urine pH 5.5 (5.0-8.0) Ur Specific [place] 1.016 (1.001-1.035) Urine Protein 2+ H (Negative) Urine Glucose (UA) Negative (Negative) Urine Ketones Negative (Negative) Urine Blood Trace H (Negative) Urine Nitrite Negative (Negative) Urine Bilirubin Negative (Negative) Urine Urobilinogen <2.0 (<2.0) mg/dL Ur Leukocyte Esterase Small H (Negative) Urine RBC 4 (0-5) /hpf Urine WBC 16 H (0-5) /hpf Ur Squamous Epith Cells 4 (0-4) /hpf Amorphous Sediment Few H (None) /hpf Urine Bacteria Rare H (None) /hpf Hyaline Casts 1 (0-2) /lpf Urine Mucus Rare H (None) /hpf - EKG Data -: EKG Interpreted by Me EKG Comments: Intervention ablation rate 114 QRS 80 QT since QTC 354/47 left exodeviation low- voltage QRS poor R-wave progression - Radiology Data Radiology results: report reviewed (Imaging reviewed no acute findings.), image reviewed Disposition Clinical Impression: Acute anxiety, Dehydration, Chronic atrial fibrillation Disposition: HOME SELF-CARE Condition: Good Instructions (If sedation given, give patient instructions): Dehydration (ED), Generalized Anxiety Disorder (ED) Is patient prescribed a controlled substance at d/c from ED?: No Referrals: Cedrick Ruiz MD [Primary Care Provider] - 1-2 days [facility] [NON-STAFF] -
[2021-10-02 10:40] LABS: INR 1.1 (<1.2); Partial Thromboplastin Time 24.7 sec (22.0-30.0); Prothrombin Time 11.2 sec (9.0-12.0)
[2021-10-02] MEDS ORDERED: LORazepam 2 MG/ML INJ IV STA (10:48)
--- NOTE | 2021-10-02 10:50 | XR ---
EXAMINATION TYPE: XR chest 2V DATE OF EXAM: 10/02/2021 COMPARISON: Chest x-ray July 19, 2015. CT thorax May 07, 2021 HISTORY: Dysrhythmia. TECHNIQUE: Frontal and lateral views of the chest are obtained. FINDINGS: A background of moderate Chronic emphysematous and pulmonary fibrotic changes with persiste nt cardiomegaly. No new focal airspace opacity, pleural effusion, or pneumothorax seen bilaterally. Metallic anchors right humeral head from prior rotator cuff surgery. IMPRESSION: Chronic changes and cardiomegaly without acute pulmonary process.
[2021-10-02 10:57] LABS: Albumin 3.5 g/dL (3.5-5.0); Calcium 9.2 mg/dL (8.4-10.2); Magnesium 1.7 mg/dL (1.6-2.3); Total Bilirubin 0.4 mg/dL (0.2-1.3); Total Protein 6.6 g/dL (6.3-8.2)
[2021-10-02 11:24] LABS: Anisocytosis Slight; Basophils # (A) 0.1 k/uL (0-0.2); Basophils % (A) 1 %; Eosinophils # (A) 0.2 k/uL (0-0.7); Eosinophils % (A) 2 %; HGB 10.6 gm/dL (11.4-16.0); Lymphocytes # (A) 1.6 k/uL (1.0-4.8); Lymphocytes % (A) 15 %; MCH 29.6 pg (25.0-35.0); MCHC 32.1 g/dL (31.0-37.0); MCV 92.4 fL (80.0-100.0); Mean Platelet Volume 9.8; Monocytes # (A) 0.9 k/uL (0-1.0); Monocytes % (A) 8 %; Neutrophils # (A) 7.5 k/uL (1.3-7.7); Neutrophils % (A) 72 %; Platelet Count 198 k/uL (150-450); RBC 3.57 m/uL (3.80-5.40); RDW 16.9 % (11.5-15.5); WBC 10.4 k/uL (3.8-10.6)
[2021-10-02 12:47] LABS: Amorphous Sediment,Urine Few /hpf; Appearance,Urine Cloudy (Clear); Bacteria,Urine Rare /hpf; Bilirubin,Urine Negative (Negative); Blood,Urine Trace (Negative); Color,Urine Yellow; Glucose,Urine (UA) Negative (Negative); Hyaline Casts,Urine 1 /lpf (0-2); Ketones,Urine Negative (Negative); Leukocyte Esterase,Urine Small (Negative); Mucus,Urine Rare /hpf; Nitrite,Urine Negative (Negative); PH, Urine 5.5 (5.0-8.0); Protein,Urine 2+ (Negative); RBC,Urine 4 /hpf (0-5); Specific Gravity,Urine 1.016 (1.001-1.035); Squamous Epithelial Cell,Urine 4 /hpf (0-4); Urobilinogen,Urine <2.0 mg/dL (<2.0); WBC,Urine 16 /hpf (0-5)
[2021-10-02 14:27] VITALS: BP 138/91; PULSE 99; RESP 18
== END 2021-10-02 14:28 | disposition home or self-care (01) ==
LOC: EC 09:06
DX: F41.9 Anxiety disorder, unspecified (principal); E86.0 Dehydration; I48.20 Chronic atrial fibrillation, unspecified; I11.9 Hypertensive heart disease without heart failure; E11.9 Type 2 diabetes mellitus without complications; E78.5 Hyperlipidemia, unspecified; J44.9 Chronic obstructive pulmonary disease, unspecified; F32.9 Major depressive disorder, single episode, unspecified; Z79.01 Long term (current) use of anticoagulants; Z79.4 Long term (current) use of insulin; Z88.6 Allergy status to analgesic agent; Z85.3 Personal history of malignant neoplasm of breast; Z90.49 Acquired absence of other specified parts of digestive tract; Z90.710 Acquired absence of both cervix and uterus; Z87.891 Personal history of nicotine dependence
CPT/HCPCS: 99285; 96374; 36415; 93005; 80053; 83735; 84443; 84484; 85025; 85610; 85730; 81001; 87086; 87077; 87186; 71046; J2060

== ENCOUNTER 2021-10-18 09:12 | Inpatient (IN) | payer MEDICARE, BC ==
[2021-10-18] MEDS ORDERED: methocarbamoL 750 MG TAB PO STA (09:36)
[2021-10-18] MEDS ORDERED: ACETAMINOPHEN TAB 500 MG TAB PO STA (09:38)
--- NOTE | 2021-10-18 09:46 | ED ---
General Adult HPI - General Chief complaint: Urogenital Stated complaint: blood in urine Time Seen by Provider: 10/18/21 09:26 Source: patient, RN notes reviewed, old records reviewed Mode of arrival: EMS Limitations: no limitations - History of Present Illness Initial comments: Patient is a 80-year-old female with past medical history remarkable for atrial fibrillation on elliquis, COPD on home oxygen, diabetes, hypertension, ckd, chronic back pain secondary to spinal stenosis who presents emergency Department complaining of painless hematuria since . She was sent in by her assisted living facility for further evaluation. She denies any lightheadedness, chest pain, shortness breath, abdominal pain. She does endorse lower back discomfort which may be related to her chronic back pain she believes. Denies any upper back discomfort. Denies any flank pain, pain with urination. Denies any vaginal bleeding or discharge. Patient does have a history of a hysterectomy. She endorses normal bowel movements without any blood in her stool. She denies any nausea or vomiting. She otherwise has no acute complaints at this time. She presents over concern for blood in her urine. She does have a history of UTIs previously. She was recently treated for UTI at her outpatient rehab facility 2 or 3 weeks ago. - Related Data Home Medications Medication Instructions Recorded Confirmed Atorvastatin [Lipitor] 20 mg PO HS@1900 07/15/14 10/18/21 Apixaban [Eliquis] 2.5 mg PO BID@0800,199901/28/21 10/18/21 Cetirizine HCl [Zyrtec] 10 mg PO HS@1900 01/28/21 10/18/21 Cyanocobalamin [Vitamin B-12] 1,000 mcg PO DAILY@0601/28/21 10/18/21 Latanoprost Ophth [Xalatan 0.005%] 1 drop BOTH EYES HS@0 01/28/21 10/18/21 Montelukast [Singulair] 10 mg PO HS@1900 01/28/21 10/18/21 Roflumilast [Daliresp] 500 mcg PO DAILY@0600 01/28/21 10/18/21 Vit C/E/Zn/Coppr/Lutein/Zeaxan 1 cap PO BID@0600,189901/28/21 10/18/21 [Preservision Areds 2 Softgel] Cholecalciferol [Vitamin D3 (25 25 mcg PO DAILY@0600 02/06/21 10/18/21 Mcg = 1000 Iu)] ALPRAZolam [Xanax] 0.25 mg PO DAILY PRN 09/03/21 10/18/21 Ascorbic Acid [Vitamin C] 1,000 mg PO DAILY@0600 09/03/21 10/18/21 Ipratropium-Albuterol Nebulize 3 ml INHALATION RT-TID@06,,09/03/21 10/18/21 [Duoneb 0.5 mg-3 mg/3 ml Soln] Sertraline [Zoloft] 50 mg PO TID@0600,1400,1900 09/03/21 10/18/21 Sodium Bicarbonate Tab 650 mg PO BID@0600,1900 09/03/21 10/18/21 Amiodarone [Cordarone] 200 mg PO BID@0700,1900 10/18/21 10/18/21 Clotrimazole/Betameth Cream 1 applic TOPICAL BID@0600,1900 10/18/21 10/18/21 [Lotrisone] Furosemide [Lasix] 40 mg PO DAILY@0600 10/18/21 10/18/21 Insulin Glargine,Hum.rec.anlog 48 unit SQ HS@1900 10/18/21 10/18/21 [Basaglar Kwikpen U-100] Melatonin 3 mg PO HS PRN 10/18/21 10/18/21 Metoprolol Tartrate [Lopressor] 75 mg PO TID@0600,1400,1900 10/18/21 10/18/21 Allergies Allergy/AdvReac Type Severity Reaction Status Date / Time diclofenac sodium Allergy Unknown Verified 10/18/21 12:15 [From Voltaren] adhesive tape AdvReac Rash/Hives Verified 10/18/21 12:15 Review of Systems ROS Statement: Those systems with pertinent positive or pertinent negative responses have been documented in the HPI. Review of Systems: CONST: Denies fever EYES: Denies blurry vision ENT: Denies nasal congestion C/V: Denies Chest pain RESP: Denies shortness of breath GI: Denies abdominal pain : Endorses hematuria SKIN: Denies rash. MSK: Denies joint pain. NEURO: Denies headache ROS Other: All systems not noted in ROS Statement are negative. Past Medical History Past Medical History: Atrial Fibrillation, COPD, Diabetes Mellitus, Hyperlipidemia, Hypertension Additional Past Medical History / Comment(s): spinal stenosis, knee pain, left ear infection, home oxygen 3L, macular degeneration, right breast cancer History of Any Multi-Drug Resistant Organisms: MRSA, VRE Date of last positivie culture/infection: 10/02/21 09/13/21 MRSA MDRO Source:: VRE URINE MRSA LEG Past Surgical History: Appendectomy, Breast Surgery, Cholecystectomy, Hysterectomy, Orthopedic Surgery Additional Past Surgical History / Comment(s): cervical laminectomy, bone graft arm, kidney stone removed, right breast lumpectomy x2 with radiation, left leg wound repair Past Psychological History: Depression Smoking Status: Former smoker Past Alcohol Use History: Occasional Past Drug Use History: None Reported - Past Family History Mother Additional Family Medical History / Comment(s): breast ca General Exam - General Exam Comments Initial Comments: General: Appears in no acute distress. HEAD: Normal with no signs of head trauma. EYES: PERRLA, EOMI, conjunctiva normal, no discharge. ENT: Hearing grossly intact, normal oropharynx. RESPIRATORY: Clear breath sounds bilaterally. No wheezes, rales, or rhonchi. Patient is on her home nasal cannula oxygen. C/V: Regular rate and rhythm. S1 and S2 auscultated, no edema, peripheral pulses 2+ and intact throughout ABD: Abd is soft, nontender, nondistended EXT: Normal range of motion, no obvious deformity SKIN: Patient does have a healing skin tear over the left lower extremity that is being treated multiple days per week by wound care and wound care nursing. NEURO: Alert and oriented 4. No focal sensory strength deficits. Limitations: no limitations Course Vital Signs 10/18/21 10/18/21 09:15 13:21 Temperature 98.2 F 98.2 F Pulse Rate 78 78 Respiratory 20 17 Rate Blood Pressure 170/89 156/78 O2 Sat by Pulse 100 98 Oximetry Medical Decision Making - Medical Decision Making Based on the patient's presentation and physical examination, she appears to be having hematuria with some back spasms in the lower back with a history of chronic back pain. Patient is on a blood thinner at home. We will obtain basic laboratory studies to evaluate for any decreases in her baseline hemoglobin. We will obtain a urinalysis in addition to basic labs. She was in agreement this plan. Patient will be administered Tylenol and Robaxin for her lower back spasms. Patient's laboratory studies were remarkable for normal CBC, however CMP revealed an AK eye on CK D with creatinine of 3.08 and be on a 71 Baseline creatinine is typically around 1.5. Patient's urinalysis is also remarkable for gross hematuria 182. There are 39 WBCs present. Covid is negative. I discussed with the patient that she has gross hematuria on urine coupled with an AK I would like to admit him to the hospital for nephrology evaluation. We will obtain an ultrasound of the kidneys and bladder. She was in agreement this plan. I spoke with the admitting team under Dr. Castelan who accepted the patient. She'll be given a one-time dose of Rocephin to cover for possible UTI. She also be given IV fluids. Home medications will be ordered. Patient was in agreement this plan. Patient was admitted prior to results of ultrasound coming back. Revealed no hydronephrosis and partial distended bladder with no gross and normal body. Patient was admitted to the hospital in serious condition. Nephrology was consulted. - Lab Data Result diagrams: 10/18/21 09:50 10/18/21 09:50 Lab Results 10/18/21 10/18/21 10/18/21 Range/Units 09:50 09:50 09:50 WBC 9.5 (3.8-10.6) k/uL RBC 3.91 (3.80-5.40) m/uL Hgb 11.4 (11.4-16.0) gm/dL Hct 35.7 (34.0-46.0) % MCV 91.2 (80.0-100.0) fL MCH 29.1 (25.0-35.0) pg MCHC 31.9 (31.0-37.0) g/dL RDW 16.1 H (11.5-15.5) % Plt Count 305 (150-450) k/uL MPV 7.4 Neutrophils % 66 % Lymphocytes % 22 % Monocytes % 5 % Eosinophils % 4 % Basophils % 1 % Neutrophils # 6.3 (1.3-7.7) k/uL Lymphocytes # 2.1 (1.0-4.8) k/uL Monocytes # 0.5 (0-1.0) k/uL Eosinophils # 0.3 (0-0.7) k/uL Basophils # 0.1 (0-0.2) k/uL Anisocytosis Slight PT 10.7 (9.0-12.0) sec INR 1.0 (<1.2) APTT 25.0 (22.0-30.0) sec Sodium (137-145) mmol/L Potassium (3.5-5.1) mmol/L Chloride (98-107) mmol/L Carbon Dioxide (22-30) mmol/L Anion Gap mmol/L BUN (7-17) mg/dL Creatinine (0.52-1.04) mg/dL Est GFR (CKD-EPI)AfAm (>60 ml/min/1.73 sqM) Est GFR (CKD-EPI)NonAf (>60 ml/min/1.73 sqM) Glucose (74-99) mg/dL Calcium (8.4-10.2) mg/dL Total Bilirubin (0.2-1.3) mg/dL AST (14-36) U/L ALT (4-34) U/L Alkaline Phosphatase (38-126) U/L Total Protein (6.3-8.2) g/dL Albumin (3.5-5.0) g/dL Urine Color Dark Red Urine Appearance Bloody H (Clear) Urine RBC >182 H (0-5) /hpf Urine WBC 39 H (0-5) /hpf 10/18/21 Range/Units 09:50 WBC (3.8-10.6) k/uL RBC (3.80-5.40) m/uL Hgb (11.4-16.0) gm/dL Hct (34.0-46.0) % MCV (80.0-100.0) fL MCH (25.0-35.0) pg MCHC (31.0-37.0) g/dL RDW (11.5-15.5) % Plt Count (150-450) k/uL MPV Neutrophils % % Lymphocytes % % Monocytes % % Eosinophils % % Basophils % % Neutrophils # (1.3-7.7) k/uL Lymphocytes # (1.0-4.8) k/uL Monocytes # (0-1.0) k/uL Eosinophils # (0-0.7) k/uL Basophils # (0-0.2) k/uL Anisocytosis PT (9.0-12.0) sec INR (<1.2) APTT (22.0-30.0) sec Sodium 140 (137-145) mmol/L Potassium 4.0 (3.5-5.1) mmol/L Chloride 102 (98-107) mmol/L Carbon Dioxide 29 (22-30) mmol/L Anion Gap 9 mmol/L BUN 71 H (7-17) mg/dL Creatinine 3.08 H (0.52-1.04) mg/dL Est GFR (CKD-EPI)AfAm 16 (>60 ml/min/1.73 sqM) Est GFR (CKD-EPI)NonAf 14 (>60 ml/min/1.73 sqM) Glucose 81 (74-99) mg/dL Calcium 8.9 (8.4-10.2) mg/dL Total Bilirubin 0.3 (0.2-1.3) mg/dL AST 23 (14-36) U/L ALT 14 (4-34) U/L Alkaline Phosphatase 98 (38-126) U/L Total Protein 6.5 (6.3-8.2) g/dL Albumin 3.5 (3.5-5.0) g/dL Urine Color Urine Appearance (Clear) Urine RBC (0-5) /hpf Urine WBC (0-5) /hpf Disposition Clinical Impression: Hematuria, DEANDRE (acute kidney injury), CKD (chronic kidney disease) Disposition: ADMITTED IP TO [facility] Condition: Serious
[2021-10-18 10:01] LABS: Anisocytosis Slight; Basophils # (A) 0.1 k/uL (0-0.2); Basophils % (A) 1 %; Eosinophils # (A) 0.3 k/uL (0-0.7); Eosinophils % (A) 4 %; HCT 35.7 % (34.0-46.0); HGB 11.4 gm/dL (11.4-16.0); Lymphocytes # (A) 2.1 k/uL (1.0-4.8); Lymphocytes % (A) 22 %; MCH 29.1 pg (25.0-35.0); MCHC 31.9 g/dL (31.0-37.0); MCV 91.2 fL (80.0-100.0); Mean Platelet Volume 7.4; Monocytes # (A) 0.5 k/uL (0-1.0); Monocytes % (A) 5 %; Neutrophils # (A) 6.3 k/uL (1.3-7.7); Neutrophils % (A) 66 %; Platelet Count 305 k/uL (150-450); RBC 3.91 m/uL (3.80-5.40); RDW 16.1 % (11.5-15.5); WBC 9.5 k/uL (3.8-10.6)
[2021-10-18 10:14] LABS: Prothrombin Time 10.7 sec (9.0-12.0)
[2021-10-18 10:39] LABS: Albumin 3.5 g/dL (3.5-5.0); Calcium 8.9 mg/dL (8.4-10.2); Total Bilirubin 0.3 mg/dL (0.2-1.3); Total Protein 6.5 g/dL (6.3-8.2)
[2021-10-18 10:41] LABS: RBC,Urine >182 /hpf (0-5); WBC,Urine 39 /hpf (0-5)
[2021-10-18 10:42] LABS: Appearance,Urine Bloody (Clear); Color,Urine Dark Red
[2021-10-18] MEDS ORDERED: NALOXONE 0.4 MG/ML 1 ML VIAL IV PRN (11:57)
[2021-10-18] MEDS ORDERED: ONDANSETRON 4 MG/2 ML VIAL IVP PRN (11:57)
--- NOTE | 2021-10-18 12:10 | US ---
EXAMINATION TYPE: US kidneys/renal and bladder DATE OF EXAM: 10/18/2021 COMPARISON: NONE CLINICAL HISTORY: 80-year-old female gross hematuria, known CKD EXAM MEASUREMENTS: Right Kidney: 11.2 x 4.9 x 4.9 cm Left Kidney: 11.8 x 4.6 x 6.2 cm Some limitations due to patient body habitus. Right Kidney: No hydronephrosis or masses seen Left Kidney: No hydronephrosis or masses seen Bladder: Partially distended bladder shows no gross abnormal body. IMPRESSION: No hydronephrosis.
[2021-10-18] MEDS: SODIUM CHLORIDE 0.9% 1,000 ML IV SCH (12:34)
[2021-10-18] MEDS ORDERED: MELATONIN 3 MG TABLET PO PRN (13:41)
--- NOTE | 2021-10-18 14:14 | P.HPIM ---
History of Present Illness this is a 80-year-old female with complex past medical history noted below significant for chronic atrial fibrillation on anticoagulation with Eliquis I presented to the emergency room from a local assisted living facility with blood in her urine. Patient said that her symptoms started few days ago and is being getting worse. She was recently started on Lasix and since that time she does not have control over her bladder. She said that she has been seeing blood in her brief. Patient was evaluated in the ER and was found to have acute kidney injury on chronic kidney disease. She will was admitted to the hospital for further evaluation. Patient denies any fevers or chills. She has chronic back pain but otherwise no abdominal pain or pelvic pain. Patient said that she has a history of kidney stones 15 years ago Review of Systems Review of system: 14 points review of systems were obtained and were negative except to what were mentioned in the HPI. Past Medical History Past Medical History: Atrial Fibrillation, COPD, Diabetes Mellitus, Hyperlipi demia, Hypertension Additional Past Medical History / Comment(s): spinal stenosis, knee pain, left ear infection, home oxygen 3L, macular degeneration, right breast cancer History of Any Multi-Drug Resistant Organisms: MRSA, VRE Date of last positivie culture/infection: 10/02/21 09/13/21 MRSA MDRO Source:: VRE URINE MRSA LEG Past Surgical History: Appendectomy, Breast Surgery, Cholecystectomy, Hysterectomy, Orthopedic Surgery Additional Past Surgical History / Comment(s): cervical laminectomy, bone graft arm, kidney stone removed, right breast lumpectomy x2 with radiation, left leg wound repair Past Psychological History: Depression Smoking Status: Former smoker Past Alcohol Use History: Occasional Past Drug Use History: None Reported - Past Family History Mother Additional Family Medical History / Comment(s): breast ca Medications and Allergies Home Medications Medication Instructions Recorded Confirmed Type Atorvastatin [Lipitor] 20 mg PO HS@1900 07/15/14 10/18/21 History Apixaban [Eliquis] 2.5 mg PO BID@0800,199901/28/21 10/18/21 History Cetirizine HCl [Zyrtec] 10 mg PO HS@1900 01/28/21 10/18/21 History Cyanocobalamin [Vitamin B-12] 1,000 mcg PO DAILY@0600 01/28/21 10/18/21 History Latanoprost Ophth [Xalatan 0.005%] 1 drop BOTH EYES HS@189901/28/21 10/18/21 History Montelukast [Singulair] 10 mg PO HS@189901/28/21 10/18/21 History Roflumilast [Daliresp] 500 mcg PO DAILY@0600 01/28/21 10/18/21 History Vit C/E/Zn/Coppr/Lutein/Zeaxan 1 cap PO BID@0600,1900 01/28/21 10/18/21 History [Preservision Areds 2 Softgel] Cholecalciferol [Vitamin D3 (25 25 mcg PO DAILY@0602/06/21 10/18/21 History Mcg = 1000 Iu)] ALPRAZolam [Xanax] 0.25 mg PO DAILY PRN 09/03/21 10/18/21 History Ascorbic Acid [Vitamin C] 1,000 mg PO DAILY@0600 09/03/21 10/18/21 History Ipratropium-Albuterol Nebulize 3 ml INHALATION RT-TID@,,09/03/21 10/18/21 History [Duoneb 0.5 mg-3 mg/3 ml Soln] Sertraline [Zoloft] 50 mg PO TID@0600,1400,0 09/03/21 10/18/21 History Sodium Bicarbonate Tab 650 mg PO BID@0600,1900 09/03/21 10/18/21 History Amiodarone [Cordarone] 200 mg PO BID@0700,189910/18/21 10/18/21 History Clotrimazole/Betameth Cream 1 applic TOPICAL BID@0600,0 10/18/21 10/18/21 History [Lotrisone] Furosemide [Lasix] 40 mg PO DAILY@0600 10/18/21 10/18/21 History Insulin Glargine,Hum.rec.anlog 48 unit SQ HS@189910/18/21 10/18/21 History [Basaglar Kwikpen U-100] Melatonin 3 mg PO HS PRN 10/18/21 10/18/21 History Metoprolol Tartrate [Lopressor] 75 mg PO TID@0600,1400,0 10/18/21 10/18/21 History Allergies Allergy/AdvReac Type Severity Reaction Status Date / Time diclofenac sodium Allergy Unknown Verified 10/18/21 12:15 [From Voltaren] adhesive tape AdvReac Rash/Hives Verified 10/18/21 12:15 Physical Exam Vitals: Vital Signs Temp Pulse Resp BP Pulse Ox 10/18/21 13:21 98.2 F 78 17 156/78 98 10/18/21 09:15 98.2 F 78 20 170/89 100 Intake and Output 10/17/21 10/18/21 10/18/21 22:59 06:59 14:59 Other: Weight 100 kg General: The patient is awake and alert, in no distress Eye: there is normal conjunctiva bilaterally. Neck: The neck is supple, there is no JVD. Cardiovascular: Normal S1-S2, no S3-S4, no murmurs. Respiratory: Lungs clear to auscultation bilaterally Gastrointestinal: Abdomen is soft, nontender Musculoskeletal: With clean dressing and Gino wrap bilaterally Neurological:. Speech is normal. Skin: Skin is warm and dry Results CBC & Chem 7: 10/18/21 09:50 10/18/21 09:50 Labs: Abnormal Lab Results - Last 24 Hours (Table) 10/18/21 10/18/21 10/18/21 Range/Units 09:50 09:50 09:50 RDW 16.1 H (11.5-15.5) % BUN 71 H (7-17) mg/dL Creatinine 3.08 H (0.52-1.04) mg/dL Urine Appearance Bloody H (Clear) Urine RBC >182 H (0-5) /hpf Urine WBC 39 H (0-5) /hpf Assessment and Plan Assessment: 1. Hematuria, exact etiology unclear. Kidney ultrasound with no evidence of kidney stones. I would obtain urinalysis for further further evaluation. Hematuria is not very significant as her hemoglobin is stable. I would continue anticoagulation for now. 2. Acute kidney injury on stage IIIB chronic kidney disease. Hold Lasix and start gentle IV fluid hydration with normal saline at 75 mL per hour 3. Chronic medical problems: chronic atrial fibrillation, chronic systolic heart failure with EF of 30-35%, type 2 diabetes, hypertension, hyperlipidemia
[2021-10-18] MEDS ORDERED: cefTRIAXone IN SWFI 1,000 MG/10 ML SYRINGE IVP STA (14:30)
[2021-10-18] MEDS ORDERED: SODIUM CHLORIDE 0.9% 1,000 ML IV ONE (14:31)
[2021-10-18] MEDS: ACETAMINOPHEN TAB 325 MG TAB PO PRN (15:06)
[2021-10-18] MEDS: SERTRALINE 50 MG TAB PO SCH ×2 (15:06→20:40)
[2021-10-18] MEDS: METOPROLOL TARTRATE 25 MG TAB PO SCH ×2 (15:06→20:39)
[2021-10-18] MEDS: IPRATROPIUM-ALBUTEROL 3 ML NEB INHALATION SCH ×2 (15:53→20:13)
[2021-10-18 16:52] LABS: Glucose,Whole Blood 280 mg/dL (75-99)
[2021-10-18] MEDS: INSULIN ASPART (NovoLOG) 100 UNIT/ML VIAL SQ SCH ×2 (17:29→20:40)
[2021-10-18 20:07] LABS: Glucose,Whole Blood 169 mg/dL (75-99)
[2021-10-18] MEDS: APIXABAN 2.5 MG TABLET PO SCH (20:20)
[2021-10-18] MEDS: MONTELUKAST 10 MG TAB PO SCH (20:39)
[2021-10-18] MEDS: LATANOPROST 0.005% OPHTH DROPS 2.5 ML BTL BOTH EYES SCH (20:39)
[2021-10-18] MEDS: LORATADINE 10 MG TAB PO SCH (20:40)
[2021-10-18] MEDS: ATORVASTATIN 20 MG TAB PO SCH (20:40)
[2021-10-18] MEDS: AMIODARONE 200 MG TAB PO SCH (20:40)
[2021-10-18] MEDS: SODIUM BICARBONATE TAB 650 MG TAB PO SCH (20:40)
[2021-10-18] MEDS: VIT A,C & E-LUTEIN-MINERALS 1 EACH TAB PO SCH (20:41)
[2021-10-18] MEDS: INSULIN DETEMIR (LEVEMIR) 100 UNIT/ML SYR SQ SCH (20:41)
[2021-10-18 22:23] LABS: Appearance,Urine Cloudy (Clear); Bilirubin,Urine Negative (Negative); Blood,Urine Large (Negative); Color,Urine Red; Glucose,Urine (UA) Negative (Negative); Ketones,Urine Negative (Negative); Leukocyte Esterase,Urine Small (Negative); Nitrite,Urine Negative (Negative); Protein,Urine 2+ (Negative); RBC,Urine >182 /hpf (0-5); Specific Gravity,Urine 1.021 (1.001-1.035); Urobilinogen,Urine <2.0 mg/dL (<2.0); WBC,Urine 45 /hpf (0-5)
[2021-10-18] MEDS: ALPRAZolam 0.25 MG TAB PO PRN (22:31)
[2021-10-19] MEDS: SODIUM CHLORIDE 0.9% 1,000 ML IV SCH (01:30)
[2021-10-19] MEDS: SERTRALINE 50 MG TAB PO SCH ×3 (05:49→21:03)
[2021-10-19] MEDS: SODIUM BICARBONATE TAB 650 MG TAB PO SCH ×2 (05:49→21:02)
[2021-10-19] MEDS: METOPROLOL TARTRATE 25 MG TAB PO SCH ×3 (05:49→21:02)
[2021-10-19] MEDS: CHOLECALCIFEROL 25 MCG (1000 IU) TABLET PO SCH (05:49)
[2021-10-19] MEDS: CYANOCOBALAMIN 500 MCG TAB PO SCH (05:49)
[2021-10-19] MEDS: ASCORBIC ACID 500 MG TAB PO SCH (05:49)
[2021-10-19] MEDS: ACETAMINOPHEN TAB 325 MG TAB PO PRN (05:50)
[2021-10-19] MEDS ORDERED: FUROSEMIDE 40 MG TAB PO SCH (06:00)
[2021-10-19 06:59] LABS: Glucose,Whole Blood 73 mg/dL (75-99)
[2021-10-19] MEDS: Roflumilast [Daliresp] 500 MCG Tablet PO SCH (07:08)
[2021-10-19] MEDS: IPRATROPIUM-ALBUTEROL 3 ML NEB INHALATION SCH ×3 (07:42→19:39)
[2021-10-19] MEDS: INSULIN ASPART (NovoLOG) 100 UNIT/ML VIAL SQ SCH ×4 (08:02→21:01)
--- NOTE | 2021-10-19 08:11 | P.NPCON ---
History of Present Illness - Reason for Consult Consult date: 10/19/21 acute renal failure - Chief Complaint Hematuria - History of Present Illness This is 80-year-old female seen in consultation because of acute kidney injury and painless hematuria. She was admitted with the hematuria there was gross and was noticed 2 days prior to admission. No pain associated with this except for some back spasm. She does have chronic back pain. Denies taking any nonsteroidals. No nausea vomiting diarrhea no dysuria frequency. Patient is on Eliquis for Atrial fibrillation she also has COPD severe, diabetes mellitus, has chronic kidney disease creatinines have been up and down. Was 0.9 on 09/09/2021, 1.5 on 10/02/2021 and she had a urine culture that grew in her creatinine though went up on admission to 3.08. She was recently admitted on 09/03/2021 through 09/10/2021 with cellulitis of the left leg. She was treated with vancomycin. On 10/02/2021 a urine culture grew enterococcus, it was resistant to vancomycin but sensitive to daptomycin and linezolid and gentamicin only Patient is known with COPD atrial fibrillation Past Medical History Past Medical History: Atrial Fibrillation, COPD, Diabetes Mellitus, Hyperli pidemia, Hypertension Additional Past Medical History / Comment(s): spinal stenosis, knee pain, left ear infection, home oxygen 3L, macular degeneration, right breast cancer History of Any Multi-Drug Resistant Organisms: MRSA, VRE Date of last positivie culture/infection: 10/02/21 09/13/21 MRSA MDRO Source:: VRE URINE MRSA LEG Past Surgical History: Appendectomy, Breast Surgery, Cholecystectomy, Hysterectomy, Orthopedic Surgery Additional Past Surgical History / Comment(s): cervical laminectomy, bone graft arm, kidney stone removed, right breast lumpectomy x2 with radiation, left leg wound repair Past Psychological History: Depression Smoking Status: Former smoker Past Alcohol Use History: Occasional Past Drug Use History: None Reported - Past Family History Mother Additional Family Medical History / Comment(s): breast ca Medications and Allergies Home Medications Medication Instructions Recorded Confirmed Type Atorvastatin [Lipitor] 20 mg PO HS@1900 07/15/14 10/18/21 History Apixaban [Eliquis] 2.5 mg PO BID@08,199901/28/21 10/18/21 History Cetirizine HCl [Zyrtec] 10 mg PO HS@1900 01/28/21 10/18/21 History Cyanocobalamin [Vitamin B-12] 1,000 mcg PO DAILY@0600 01/28/21 10/18/21 History Latanoprost Ophth [Xalatan 0.005%] 1 drop BOTH EYES HS@189901/28/21 10/18/21 History Montelukast [Singulair] 10 mg PO HS@189901/28/21 10/18/21 History Roflumilast [Daliresp] 500 mcg PO DAILY@0600 01/28/21 10/18/21 History Vit C/E/Zn/Coppr/Lutein/Zeaxan 1 cap PO BID@0600,189901/28/21 10/18/21 History [Preservision Areds 2 Softgel] Cholecalciferol [Vitamin D3 (25 25 mcg PO DAILY@0602/06/21 10/18/21 History Mcg = 1000 Iu)] ALPRAZolam [Xanax] 0.25 mg PO DAILY PRN 09/03/21 10/18/21 History Ascorbic Acid [Vitamin C] 1,000 mg PO DAILY@0600 09/03/21 10/18/21 History Ipratropium-Albuterol Nebulize 3 ml INHALATION RT-TID@,,09/03/21 10/18/21 History [Duoneb 0.5 mg-3 mg/3 ml Soln] Sertraline [Zoloft] 50 mg PO TID@0600,1400,0 09/03/21 10/18/21 History Sodium Bicarbonate Tab 650 mg PO BID@0600,1900 09/03/21 10/18/21 History Amiodarone [Cordarone] 200 mg PO BID@0700,0 10/18/21 10/18/21 History Clotrimazole/Betameth Cream 1 applic TOPICAL BID@0600,189910/18/21 10/18/21 Hi story [Lotrisone] Furosemide [Lasix] 40 mg PO DAILY@0600 10/18/21 10/18/21 History Insulin Glargine,Hum.rec.anlog 48 unit SQ HS@189910/18/21 10/18/21 History [Cassius Wilcox U-100] Melatonin 3 mg PO HS PRN 10/18/21 10/18/21 History Metoprolol Tartrate [Lopressor] 75 mg PO TID@0600,1400,1900 10/18/21 10/18/21 History Allergies Allergy/AdvReac Type Severity Reaction Status Date / Time diclofenac sodium Allergy Unknown Verified 10/18/21 12:15 [From Voltaren] adhesive tape AdvReac Rash/Hives Verified 10/18/21 12:15 Physical Exam Vitals: Vital Signs Temp Pulse Pulse Resp BP BP Pulse Ox 10/19/21 07:43 74 10/19/21 02:00 98.0 F 73 16 161/92 99 10/18/21 20:27 78 10/18/21 20:16 78 10/18/21 20:00 66 17 10/18/21 19:44 98.9 F 66 17 153/83 100 10/18/21 16:05 74 10/18/21 16:02 98 10/18/21 15:54 76 10/18/21 15:30 97.5 F L 77 18 143/86 99 10/18/21 13:21 98.2 F 78 17 156/78 98 10/18/21 09:15 98.2 F 78 20 170/89 100 Intake and Output 10/18/21 10/19/21 10/19/21 22:59 06:59 14:59 Intake Total 200 Balance 200 Intake: Oral 200 Other: Voiding Method Toilet # Voids 1 4 On examination she is on oxygen and somewhat short of breath is on inhalation treatment at the time of this exam HEENT exam no JVP neck is supple no facial asymmetry Lungs are significant for bilatera coarse crackle as well as mild wheezing on expiration as well as less than optimal air entry Heart sounds unremarkable for any murmur rub gallop Abdomen soft nontender there is a large infraumbilical hernia with a large neck unlikely to be at risk of strength regulation. Is nontender Extremity exam reveals a dressing on her left leg with trace edema on both legs. Neurologically awake alert oriented Results - Lab Results Most recent lab results Calcium 8.9 mg/dL (8.4-10.2) 10/18/21 09:50 10/18/21 09:50 10/18/21 09:50 Assessment and Plan Assessment: Impression 1. Acute kidney injury possibly related to anticoagulation related intraparenchymal renal bleeding. Ultrasound shows normal sinus kidney and 11.2 and 11.8 cm. Urinalysis significant with 2-3+ proteinuria chronically not quantified. There is no bladder retention per ultrasound. 2. Chronic kidney disease, stage III Baseline creatinine 0.9 on 09/09/2021, GFR is 55 month admitted with 2-3+ proteinuria likely diabetic nephropathy early stages 3. Diabetes mellitus. 4. COPD. 5. Atrial fibrillation, on anticoagulation orally. 6. History of spinal stenosis. Recommendation 1. IV lactated Ringer's at 100 mL an hour with Lasix 20 mg a day to ensure adequate diuresis, in an attempt to reduce any parenchymal bleeding causing tubular clotting. 2. Defer to cardiology if there is any possibility of reducing the anticoagulation. 3. Check bladder scan. 4. Urine protein to creatinine ratio. 5. Strict I's and O's and follow-up labs on a daily basis 6. Continue sodium bicarb or clonus the urine 7. Consider urology consult Thank you for this consultation and end of dictation
[2021-10-19] MEDS: VIT A,C & E-LUTEIN-MINERALS 1 EACH TAB PO SCH ×2 (08:26→21:02)
[2021-10-19] MEDS: AMIODARONE 200 MG TAB PO SCH ×2 (08:26→21:03)
[2021-10-19] MEDS: FUROSEMIDE 10 MG/ML 2 ML VIAL IV SCH (08:57)
[2021-10-19] MEDS: LACTATED RINGERS 1,000 ML IV SCH ×2 (09:00→18:21)
[2021-10-19] MEDS: APIXABAN 2.5 MG TABLET PO SCH ×2 (09:02→21:03)
[2021-10-19 09:41] LABS: Creatinine,Urine Random 75.8 mg/dL
[2021-10-19 09:54] LABS: Protein/Creatinine Ratio,Urine 3.865
--- NOTE | 2021-10-19 11:09 | P.PN ---
Subjective Progress Note Date: 10/19/21 No new complaints today, ongoing hematuria. Pending labs this morning. Nephrology consult appreciated, ongoing IV fluids with by mouth Lasix. Continue blood thinner for A. fib, monitor hemoglobin. Objective - Vital Signs Vital signs: Vital Signs Temp 97.3 F L 10/19/21 08:00 Pulse 71 10/19/21 08:00 Resp 19 10/19/21 08:00 BP 149/89 10/19/21 08:00 Pulse Ox 100 10/19/21 08:00 Intake & Output 10/18/21 10/19/21 10/19/21 18:59 06:59 18:59 Intake Total 200 200 Output Total 300 Balance 200 -100 Weight 100 kg Intake: Oral 200 200 Output: Post Void Residual 300 Other: Voiding Method Toilet Toilet # Voids 1 4 - Exam Gen: awake, alert HEENT: normocephalic, atraumatic, good hearing acuity, moist mucous membranes Resp: good air exchange, breathing comfortably with no accessory muscle use CVS: good distal perfusion x 4, irregular rhythm, normal rate GI: soft, NTTP, ND : no SPT, no CVAT, lopez catheter not present, [place] catheter placed MSK: + pitting edema, no clubbing Neuro: non-focal, moving all extremities Psych: cooperative, euthymic mood - Labs CBC & Chem 7: 10/18/21 09:50 10/18/21 09:50 Labs: Abnormal Lab Results - Last 24 Hours (Table) 10/18/21 10/18/21 10/18/21 Range/Units 16:51 20:06 21:00 POC Glucose (mg/dL) 280 H 169 H (75-99) mg/dL Urine Appearance Cloudy H (Clear) Urine Protein 2+ H (Negative) Urine Blood Large H (Negative) Ur Leukocyte Esterase Small H (Negative) Urine RBC >182 H (0-5) /hpf Urine WBC 45 H (0-5) /hpf 10/19/21 Range/Units 06:58 POC Glucose (mg/dL) 73 L (75-99) mg/dL Urine Appearance (Clear) Urine Protein (Negative) Urine Blood (Negative) Ur Leukocyte Esterase (Negative) Urine RBC (0-5) /hpf Urine WBC (0-5) /hpf Microbiology - Last 24 Hours (Table) 10/18/21 09:50 Urine Culture - Preliminary Urine,Voided Assessment and Plan Assessment: Hematuria, acute, ongoing Acute kidney injury superimposed on stage IIIb CKD, improving -Nephrology, urology consult -IV fluids with small by mouth Lasix -UA reviewed -Likely requires outpatient cystoscopy -Continue to monitor CBC daily -Continue blood thinner for now given stable hemoglobin Permanent atrial fibrillation, rate controlled Chronic systolic heart failure, EF 30-35% Type 2 diabetes, chronic, stable Hypertension, chronic, stable Hyperlipidemia, chronic, stable -Home medications reviewed and reconciled -Low-dose sliding scale insulin -Continue Levemir Patient is full code PT/OT consult
[2021-10-19 11:40] LABS: Glucose,Whole Blood 156 mg/dL (75-99)
[2021-10-19 12:26] LABS: Basophils # (A) 0.08 X 10*3/uL (0.00-0.10); Basophils % (A) 0.7 %; Eosinophils # (A) 0.35 X 10*3/uL (0.04-0.35); HCT 38.7 % (37.2-46.3); Lymphocytes # (A) 2.65 X 10*3/uL (0.90-5.00); Lymphocytes % (A) 22.9 %; MCH 27.2 pg (27.0-32.0); MCHC 28.4 g/dL (32.0-37.0); MCV 95.8 fL (80.0-97.0); Mean Platelet Volume 10.2 fL (9.5-12.2); Monocytes # (A) 0.83 X 10*3/uL (0.20-1.00); Monocytes % (A) 7.2 %; Neutrophils # (A) 7.57 X 10*3/uL (1.80-7.70); Neutrophils % (A) 65.5 %; Platelet Count 329 X 10*3/uL (140-440); RBC 4.04 X 10*6/uL (4.10-5.20); RDW 16.8 % (11.5-14.5); WBC 11.56 X 10*3/uL (4.50-10.00)
[2021-10-19 13:10] LABS: African American GFR (CKD) 18.4 (60.0-200.0); Anion Gap 16.8 mmol/L (4.00-12.00); BUN/Creat Ratio 21.46 Ratio (12.00-20.00); Blood Urea Nitrogen 58.8 mg/dL (9.0-27.0); Calcium 8.5 mg/dL (8.7-10.3); Carbon Dioxide 23.1 mmol/L (21.6-31.8); Non-African American GFR(CKD) 15.8 (60.0-200.0); Potassium 4.1 mmol/L (3.5-5.5)
[2021-10-19] MEDS ORDERED: CALCIUM CARBONATE 500 MG CHEWABLE PO PRN (15:01)
[2021-10-19 16:33] LABS: Glucose,Whole Blood 283 mg/dL (75-99)
[2021-10-19 20:18] LABS: Glucose,Whole Blood 197 mg/dL (75-99)
[2021-10-19] MEDS: LORATADINE 10 MG TAB PO SCH (21:02)
[2021-10-19] MEDS: INSULIN DETEMIR (LEVEMIR) 100 UNIT/ML SYR SQ SCH (21:02)
[2021-10-19] MEDS: ATORVASTATIN 20 MG TAB PO SCH (21:03)
[2021-10-19] MEDS: MONTELUKAST 10 MG TAB PO SCH (21:03)
[2021-10-19] MEDS: LATANOPROST 0.005% OPHTH DROPS 2.5 ML BTL BOTH EYES SCH (21:03)
[2021-10-19] MEDS: ALPRAZolam 0.25 MG TAB PO PRN (21:04)
[2021-10-20] MEDS: ACETAMINOPHEN TAB 325 MG TAB PO PRN ×2 (02:35→19:56)
[2021-10-20] MEDS: SODIUM BICARBONATE TAB 650 MG TAB PO SCH ×2 (06:13→19:46)
[2021-10-20] MEDS: METOPROLOL TARTRATE 25 MG TAB PO SCH ×3 (06:13→19:45)
[2021-10-20] MEDS: LACTATED RINGERS 1,000 ML IV SCH (06:13)
[2021-10-20] MEDS: CHOLECALCIFEROL 25 MCG (1000 IU) TABLET PO SCH (06:13)
[2021-10-20] MEDS: CYANOCOBALAMIN 500 MCG TAB PO SCH (06:13)
[2021-10-20] MEDS: VIT A,C & E-LUTEIN-MINERALS 1 EACH TAB PO SCH ×2 (06:13→19:47)
[2021-10-20] MEDS: SERTRALINE 50 MG TAB PO SCH ×3 (06:13→19:47)
[2021-10-20] MEDS: ASCORBIC ACID 500 MG TAB PO SCH (06:14)
[2021-10-20] MEDS: Roflumilast [Daliresp] 500 MCG Tablet PO SCH (06:16)
--- NOTE | 2021-10-20 06:26 | P.GSCN ---
History of Present Illness Consult date: 10/19/21 Reason for Consult: Gross hematuria Requesting physician: Liz Chavarria History of present illness: The patient is a 80-year-old white female treated for an Enterococcus faecium VRE UTI earlier this month. She states that she was asymptomatic at that time. She now reports gross painless hematuria. She states that the UTI was the first she has had in the past 10 years. She does have a history of 2 kidney stones, the first of which required ureteroscopic removal. Review of Systems - Constitutional Denies chills, Denies fever - Genitourinary Genitourinary: Denies dysuria, Denies flank pain Past Medical History Past Medical History: Atrial Fibrillation, COPD, Diabetes Mellitus, Hyperlipidemia, Hypertension Additional Past Medical History / Comment(s): spinal stenosis, knee pain, left ear infection, home oxygen 3L, macular degeneration, right breast cancer History of Any Multi-Drug Resistant Organisms: MRSA, VRE Year Discovered:: 10/02/21 09/13/21 MRSA MDRO Source:: VRE URINE MRSA LEG Past Surgical History: Appendectomy, Breast Surgery, Cholecystectomy, Hysterectomy, Orthopedic Surgery Additional Past Surgical History / Comment(s): cervical laminectomy, bone graft arm, kidney stone removed, right breast lumpectomy x2 with radiation, left leg wound repair Past Psychological History: Depression Smoking Status: Former smoker Past Alcohol Use History: Occasional Past Drug Use History: None Reported - Past Family History Mother Additional Family Medical History / Comment(s): breast ca Medications and Allergies Home Medications Medication Instructions Recorded Confirmed Type Atorvastatin [Lipitor] 20 mg PO HS@1900 07/15/14 10/18/21 History Apixaban [Eliquis] 2.5 mg PO BID@0800,199901/28/21 10/18/21 History Cetirizine HCl [Zyrtec] 10 mg PO HS@1900 01/28/21 10/18/21 History Cyanocobalamin [Vitamin B-12] 1,000 mcg PO DAILY@0600 01/28/21 10/18/21 History Latanoprost Ophth [Xalatan 0.005%] 1 drop BOTH EYES HS@1900 01/28/21 10/18/21 History Montelukast [Singulair] 10 mg PO HS@189901/28/21 10/18/21 History Roflumilast [Daliresp] 500 mcg PO DAILY@0600 01/28/21 10/18/21 History Vit C/E/Zn/Coppr/Lutein/Zeaxan 1 cap PO BID@0600,1900 01/28/21 10/18/21 History [Preservision Areds 2 Softgel] Cholecalciferol [Vitamin D3 (25 25 mcg PO DAILY@0600 02/06/21 10/18/21 History Mcg = 1000 Iu)] ALPRAZolam [Xanax] 0.25 mg PO DAILY PRN 09/03/21 10/18/21 History Ascorbic Acid [Vitamin C] 1,000 mg PO DAILY@0600 09/03/21 10/18/21 History Ipratropium-Albuterol Nebulize 3 ml INHALATION RT-TID@,,09/03/21 10/18/21 History [Duoneb 0.5 mg-3 mg/3 ml Soln] Sertraline [Zoloft] 50 mg PO TID@0600,1400,1900 09/03/21 10/18/21 History Sodium Bicarbonate Tab 650 mg PO BID@0600,1900 09/03/21 10/18/21 History Amiodarone [Cordarone] 200 mg PO BID@0700,1900 10/18/21 10/18/21 History Clotrimazole/Betameth Cream 1 applic TOPICAL BID@0600,1900 10/18/21 10/18/21 History [Lotrisone] Furosemide [Lasix] 40 mg PO DAILY@0600 10/18/21 10/18/21 History Insulin Glargine,Hum.rec.anlog 48 unit SQ HS@1900 10/18/21 10/18/21 History [Basaglar Kwikpen U-100] Melatonin 3 mg PO HS PRN 10/18/21 10/18/21 History Metoprolol Tartrate [Lopressor] 75 mg PO TID@0600,1400,1900 10/18/21 10/18/21 History Allergies Allergy/AdvReac Type Severity Reaction Status Date / Time diclofenac sodium Allergy Unknown Verified 10/18/21 12:15 [From Voltaren] adhesive tape AdvReac Rash/Hives Verified 10/18/21 12:15 Surgical - Exam Vital Signs Temp Pulse Resp BP Pulse Ox 98.2 F 78 20 170/89 100 10/18/21 09:15 10/18/21 09:15 10/18/21 09:15 10/18/21 09:15 10/18/21 09:15 - General well developed, well nourished, no distress - Respiratory normal respiratory effort - Abdomen Abdomen: soft, non tender, no guarding, no rigid, no rebound - Psychiatric oriented to time, oriented to person, oriented to place, speech is normal, memory intact Results - Labs 10/19/21 07:49 10/19/21 07:44 Abnormal Lab Results - Last 24 Hours (Table) 10/18/21 10/18/21 10/18/21 Range/Units 16:51 20:06 21:00 POC Glucose (mg/dL) 280 H 169 H (75-99) mg/dL Urine Appearance Cloudy H (Clear) Urine Protein 2+ H (Negative) Urine Blood Large H (Negative) Ur Leukocyte Esterase Small H (Negative) Urine RBC >182 H (0-5) /hpf Urine WBC 45 H (0-5) /hpf 10/19/21 10/19/21 Range/Units 06:58 11:37 POC Glucose (mg/dL) 73 L 156 H (75-99) mg/dL Urine Appearance (Clear) Urine Protein (Negative) Urine Blood (Negative) Ur Leukocyte Esterase (Negative) Urine RBC (0-5) /hpf Urine WBC (0-5) /hpf Microbiology - Last 24 Hours (Table) 10/18/21 09:50 Urine Culture - Preliminary Urine,Voided Gram Neg Bacilli - Imaging US - kidney/bladder: report reviewed Assessment and Plan (1) Gross hematuria Current Visit: Yes Status: Acute Code(s): R31.0 - GROSS HEMATURIA SNOMED Code(s): 809726113 Plan: As stated, the patient was treated for a VRE UTI earlier this month. Urine culture now shows gram-negative bacilli. A renal ultrasound shows no renal abnormalities. She will require treatment for the current UTI, along with close follow-up. If she has persistent hematuria following resolution of her UTI, cystoscopy would be warranted to rule out intravesical pathology. Time with Patient: Greater than 30
[2021-10-20 07:23] LABS: Glucose,Whole Blood 77 mg/dL (75-99)
[2021-10-20] MEDS: INSULIN ASPART (NovoLOG) 100 UNIT/ML VIAL SQ SCH ×4 (07:23→21:42)
[2021-10-20] MEDS: IPRATROPIUM-ALBUTEROL 3 ML NEB INHALATION SCH ×3 (08:29→19:57)
[2021-10-20 08:51] LABS: Basophils # (A) 0.07 X 10*3/uL (0.00-0.10); Basophils % (A) 0.6 %; Eosinophils # (A) 0.38 X 10*3/uL (0.04-0.35); HCT 36.6 % (37.2-46.3); HGB 10.7 g/dL (12.0-15.0); Lymphocytes # (A) 2.36 X 10*3/uL (0.90-5.00); Lymphocytes % (A) 18.7 %; MCH 27.6 pg (27.0-32.0); MCHC 29.2 g/dL (32.0-37.0); MCV 94.6 fL (80.0-97.0); Mean Platelet Volume 9.9 fL (9.5-12.2); Monocytes # (A) 0.77 X 10*3/uL (0.20-1.00); Monocytes % (A) 6.1 %; Neutrophils # (A) 8.98 X 10*3/uL (1.80-7.70); Neutrophils % (A) 70.9 %; Platelet Count 288 X 10*3/uL (140-440); RBC 3.87 X 10*6/uL (4.10-5.20); WBC 12.65 X 10*3/uL (4.50-10.00)
[2021-10-20] MEDS: AMIODARONE 200 MG TAB PO SCH ×2 (09:04→19:51)
[2021-10-20] MEDS: APIXABAN 2.5 MG TABLET PO SCH ×2 (09:04→19:47)
[2021-10-20] MEDS: FUROSEMIDE 10 MG/ML 2 ML VIAL IV SCH (09:05)
--- NOTE | 2021-10-20 09:11 | P.PN ---
Progress Note - Text Progress Note Date: 10/20/21 The patient reports increased urinary frequency. Preliminary urine culture shows gram-negative bacilli. It would be my recommendation that she be treated with antibiotics and follow up with me in 2 weeks, at which time cystoscopy will be performed if urinalysis shows resolution of her UTI. Please notify me if I can be of any further assistance.
[2021-10-20 10:09] LABS: African American GFR (CKD) 18.7 (60.0-200.0); BUN/Creat Ratio 17.85 Ratio (12.00-20.00); Blood Urea Nitrogen 48.2 mg/dL (9.0-27.0); Calcium 9.2 mg/dL (8.7-10.3); Magnesium 2.1 mg/dL (1.5-2.4); Non-African American GFR(CKD) 16.1 (60.0-200.0); Potassium 4.5 mmol/L (3.5-5.5)
--- NOTE | 2021-10-20 11:18 | P.PN ---
Subjective Progress Note Date: 10/20/21 Pt doing well today. No further complaints. UCx appears contaminated, but is growing one spp of pathogenic appearing GNR, pending speciation and sensitivities. Started ceftriaxone. Objective - Vital Signs Vital signs: Vital Signs Temp 97.4 F L 10/20/21 08:00 Pulse 73 10/20/21 08:37 Resp 20 10/20/21 08:00 BP 165/74 10/20/21 08:00 Pulse Ox 96 10/20/21 08:00 Intake & Output 10/19/21 10/20/21 10/20/21 18:59 06:59 18:59 Intake Total 600 Output Total 300 900 Balance 300 -900 Intake: Oral 600 Output: Urine 900 Post Void Residual 300 Other: Voiding Method Toilet Toilet External Catheter External Catheter # Voids 2 # Bowel Movements 1 - Exam Gen: awake, alert HEENT: normocephalic, atraumatic, good hearing acuity, moist mucous membranes Resp: good air exchange, breathing comfortably with no accessory muscle use CVS: good distal perfusion x 4, irregular rhythm, normal rate GI: soft, NTTP, ND : no SPT, no CVAT, lopez catheter not present, [place] catheter placed MSK: + pitting edema, no clubbing Neuro: non-focal, moving all extremities Psych: cooperative, euthymic mood - Labs CBC & Chem 7: 10/20/21 06:31 10/20/21 06:31 Labs: Abnormal Lab Results - Last 24 Hours (Table) 10/19/21 10/19/21 10/19/21 Range/Units 07:44 07:49 11:37 WBC 11.56 H (4.50-10.00) X 10*3/uL RBC 4.04 L (4.10-5.20) X 10*6/uL Hgb 11.0 L (12.0-15.0) g/dL Hct (37.2-46.3) % MCHC 28.4 L (32.0-37.0) g/dL RDW 16.8 H (11.5-14.5) % Immature Gran # 0.08 H (0.00-0.04) X 10*3/uL Neutrophils # (1.80-7.70) X 10*3/uL Eosinophils # (0.04-0.35) X 10*3/uL Sodium (135-145) mmol/L Anion Gap 16.80 H (4.00-12.00) mmol/L BUN 58.8 H (9.0-27.0) mg/dL Creatinine 2.7 H (0.6-1.5) mg/dL Est GFR (CKD-EPI)AfAm 18.4 L (60.0-200.0) Est GFR (CKD-EPI)NonAf 15.8 L (60.0-200.0) BUN/Creatinine Ratio 21.46 H (12.00-20.00) Ratio Glucose (70-110) mg/dL POC Glucose (mg/dL) 156 H (75-99) mg/dL Calcium 8.5 L (8.7-10.3) mg/dL 10/19/21 10/19/21 10/20/21 Range/Units 16:32 20:16 06:31 WBC 12.65 H (4.50-10.00) X 10*3/uL RBC 3.87 L (4.10-5.20) X 10*6/uL Hgb 10.7 L (12.0-15.0) g/dL Hct 36.6 L (37.2-46.3) % MCHC 29.2 L (32.0-37.0) g/dL RDW 17.0 H (11.5-14.5) % Immature Gran # 0.09 H (0.00-0.04) X 10*3/uL Neutrophils # 8.98 H (1.80-7.70) X 10*3/uL Eosinophils # 0.38 H (0.04-0.35) X 10*3/uL Sodium (135-145) mmol/L Anion Gap (4.00-12.00) mmol/L BUN (9.0-27.0) mg/dL Creatinine (0.6-1.5) mg/dL Est GFR (CKD-EPI)AfAm (60.0-200.0) Est GFR (CKD-EPI)NonAf (60.0-200.0) BUN/Creatinine Ratio (12.00-20.00) Ratio Glucose (70-110) mg/dL POC Glucose (mg/dL) 283 H 197 H (75-99) mg/dL Calcium (8.7-10.3) mg/dL 10/20/21 Range/Units 06:31 WBC (4.50-10.00) X 10*3/uL RBC (4.10-5.20) X 10*6/uL Hgb (12.0-15.0) g/dL Hct (37.2-46.3) % MCHC (32.0-37.0) g/dL RDW (11.5-14.5) % Immature Gran # (0.00-0.04) X 10*3/uL Neutrophils # (1.80-7.70) X 10*3/uL Eosinophils # (0.04-0.35) X 10*3/uL Sodium 146 H (135-145) mmol/L Anion Gap 18.00 H (4.00-12.00) mmol/L BUN 48.2 H (9.0-27.0) mg/dL Creatinine 2.7 H (0.6-1.5) mg/dL Est GFR (CKD-EPI)AfAm 18.7 L (60.0-200.0) Est GFR (CKD-EPI)NonAf 16.1 L (60.0-200.0) BUN/Creatinine Ratio (12.00-20.00) Ratio Glucose 61 L (70-110) mg/dL POC Glucose (mg/dL) (75-99) mg/dL Calcium (8.7-10.3) mg/dL Microbiology - Last 24 Hours (Table) 10/18/21 09:50 Urine Culture - Preliminary Urine,Voided Gram Neg Bacilli Assessment and Plan Assessment: Hematuria, acute, ongoing Acute kidney injury superimposed on stage IIIb CKD, improving -Nephrology, urology consult -IV fluids with small by mouth Lasix -UA reviewed -Requires outpatient cystoscopy in 2 weeks -Continue to monitor CBC daily -Continue blood thinner for now given stable hemoglobin Permanent atrial fibrillation, rate controlled Chronic systolic heart failure, EF 30-35% Type 2 diabetes, chronic, stable Hypertension, chronic, stable Hyperlipidemia, chronic, stable -Home medications reviewed and reconciled -Low-dose sliding scale insulin -Continue Levemir Patient is full code PT/OT consult
[2021-10-20 11:36] LABS: Glucose,Whole Blood 168 mg/dL (75-99)
[2021-10-20 13:08] VITALS: BMI 36.6
--- NOTE | 2021-10-20 13:17 | P.PN ---
Subjective Patient is seen in follow-up for acute kidney injury. Renal function stable. Creatinine 2.7 today. Denies gross hematuria now. Oral intake good. No vomiting or diarrhea. Vital signs are stable. General: The patient appeared well nourished and normally developed. HEENT: Head exam is unremarkable. LUNGS: Breath sounds decreased. HEART: Rate and Rhythm are regular. ABDOMEN: Soft, no distention. Obese. EXTREMITITES: Trace edema. Chronic changes noted. Objective - Vital Signs Vital signs: Vital Signs Temp 97.4 F L 10/20/21 08:00 Pulse 73 10/20/21 08:37 Resp 20 10/20/21 08:00 BP 165/74 10/20/21 08:00 Pulse Ox 96 10/20/21 08:00 Intake & Output 10/19/21 10/20/21 10/20/21 18:59 06:59 18:59 Intake Total 600 Output Total 300 900 250 Balance 300 -900 -250 Weight 100 kg Intake: Oral 600 Output: Urine 900 250 Post Void Residual 300 Other: Voiding Method Toilet Toilet External Catheter External Catheter # Voids 2 # Bowel Movements 1 - Labs CBC & Chem 7: 10/20/21 06:31 10/20/21 06:31 Labs: Abnormal Lab Results - Last 24 Hours (Table) 10/19/21 10/19/21 10/19/21 Range/Units 07:44 16:32 20:16 WBC (4.50-10.00) X 10*3/uL RBC (4.10-5.20) X 10*6/uL Hgb (12.0-15.0) g/dL Hct (37.2-46.3) % MCHC (32.0-37.0) g/dL RDW (11.5-14.5) % Immature Gran # (0.00-0.04) X 10*3/uL Neutrophils # (1.80-7.70) X 10*3/uL Eosinophils # (0.04-0.35) X 10*3/uL Sodium (135-145) mmol/L Anion Gap 16.80 H (4.00-12.00) mmol/L BUN 58.8 H (9.0-27.0) mg/dL Creatinine 2.7 H (0.6-1.5) mg/dL Est GFR (CKD-EPI)AfAm 18.4 L (60.0-200.0) Est GFR (CKD-EPI)NonAf 15.8 L (60.0-200.0) BUN/Creatinine Ratio 21.46 H (12.00-20.00) Ratio Glucose (70-110) mg/dL POC Glucose (mg/dL) 283 H 197 H (75-99) mg/dL Calcium 8.5 L (8.7-10.3) mg/dL 10/20/21 10/20/21 10/20/21 Range/Units 06:31 06:31 11:34 WBC 12.65 H (4.50-10.00) X 10*3/uL RBC 3.87 L (4.10-5.20) X 10*6/uL Hgb 10.7 L (12.0-15.0) g/dL Hct 36.6 L (37.2-46.3) % MCHC 29.2 L (32.0-37.0) g/dL RDW 17.0 H (11.5-14.5) % Immature Gran # 0.09 H (0.00-0.04) X 10*3/uL Neutrophils # 8.98 H (1.80-7.70) X 10*3/uL Eosinophils # 0.38 H (0.04-0.35) X 10*3/uL Sodium 146 H (135-145) mmol/L Anion Gap 18.00 H (4.00-12.00) mmol/L BUN 48.2 H (9.0-27.0) mg/dL Creatinine 2.7 H (0.6-1.5) mg/dL Est GFR (CKD-EPI)AfAm 18.7 L (60.0-200.0) Est GFR (CKD-EPI)NonAf 16.1 L (60.0-200.0) BUN/Creatinine Ratio (12.00-20.00) Ratio Glucose 61 L (70-110) mg/dL POC Glucose (mg/dL) 168 H (75-99) mg/dL Calcium (8.7-10.3) mg/dL Microbiology - Last 24 Hours (Table) 10/18/21 09:50 Urine Culture - Preliminary Urine,Voided Gram Neg Bacilli Assessment and Plan Plan: Assessment: 1. Acute kidney injury secondary to ATN. Concern for anticoagulation related nephropathy. Creatinine was 3.08 on admission and stable at 2.7 today. 2. Gross hematuria. This can be from anticoagulation as well as UTI. Urology following. Plan for cystoscopy outpatient once UTI resolved. 3. UTI with urine culture positive for gram-negative bacilli on antibiotics. 4. Hypernatremia from lack of oral water intake. 5. Diabetes mellitus. 6. Proteinuria. This is most likely secondary to underlying diabetic kidney disease. Rule out GN. Plan: Hep-Lock IV fluids. Maintain Lasix. Check serologies. Encourage oral intake. Avoid nephrotoxins. Continue to monitor renal function and urine output.
[2021-10-20 16:44] LABS: Glucose,Whole Blood 233 mg/dL (75-99)
[2021-10-20] MEDS ORDERED: INSULIN DETEMIR (LEVEMIR) 100 UNIT/ML SYR SQ SCH (19:00)
[2021-10-20] MEDS: LATANOPROST 0.005% OPHTH DROPS 2.5 ML BTL BOTH EYES SCH (19:46)
[2021-10-20] MEDS: LORATADINE 10 MG TAB PO SCH (19:47)
[2021-10-20] MEDS: ATORVASTATIN 20 MG TAB PO SCH (19:48)
[2021-10-20] MEDS: MONTELUKAST 10 MG TAB PO SCH (19:48)
[2021-10-20 20:14] LABS: Glucose,Whole Blood 224 mg/dL (75-99)
[2021-10-20 20:19] LABS: Protein, Total 6.3 g/dL (6.2-8.2)
[2021-10-20 20:45] LABS: Hepatitis A Antibody IgM Nonreactive (Nonreactive); Hepatitis B Core IgM Nonreactive (Nonreactive); Hepatitis B Surface Antigen Nonreactive (Nonreactive); Hepatitis C IgG Antibody Nonreactive (Nonreactive)
[2021-10-21] MEDS: ACETAMINOPHEN TAB 325 MG TAB PO PRN (03:49)
[2021-10-21 04:50] LABS: DNA Double-Stranded NEGATIVE (NEGATIVE)
[2021-10-21] MEDS: CYANOCOBALAMIN 500 MCG TAB PO SCH (06:22)
[2021-10-21] MEDS: SERTRALINE 50 MG TAB PO SCH ×2 (06:22→13:12)
[2021-10-21] MEDS: VIT A,C & E-LUTEIN-MINERALS 1 EACH TAB PO SCH (06:22)
[2021-10-21] MEDS: SODIUM BICARBONATE TAB 650 MG TAB PO SCH (06:22)
[2021-10-21] MEDS: AMIODARONE 200 MG TAB PO SCH (06:22)
[2021-10-21] MEDS: ASCORBIC ACID 500 MG TAB PO SCH (06:23)
[2021-10-21] MEDS: METOPROLOL TARTRATE 25 MG TAB PO SCH ×2 (06:23→13:12)
[2021-10-21] MEDS: CHOLECALCIFEROL 25 MCG (1000 IU) TABLET PO SCH (06:23)
[2021-10-21 07:09] LABS: Glucose,Whole Blood 119 mg/dL (75-99)
[2021-10-21] MEDS: Roflumilast [Daliresp] 500 MCG Tablet PO SCH (07:18)
[2021-10-21] MEDS: IPRATROPIUM-ALBUTEROL 3 ML NEB INHALATION SCH (07:51)
[2021-10-21] MEDS: INSULIN ASPART (NovoLOG) 100 UNIT/ML VIAL SQ SCH ×2 (08:36→12:57)
--- NOTE | 2021-10-21 09:58 | P.PN ---
Progress Note - Text Progress Note Date: 10/21/21 Mrs. Orozco's urine culture has shown a Citrobacter UTI, sensitive to quinolones. She is currently receiving ceftriaxone, to which the Citrobacter has only intermediate sensitivity. She is asymptomatic. It would be my suggestion that she be discharged home on a 5-7 day course of ciprofloxacin. She will follow up with me in 2 weeks, at which time she will undergo office cystoscopy.
[2021-10-21] MEDS: APIXABAN 2.5 MG TABLET PO SCH (10:00)
[2021-10-21] MEDS: FUROSEMIDE 10 MG/ML 2 ML VIAL IV SCH (10:00)
--- NOTE | 2021-10-21 10:32 | P.PN ---
Subjective Patient is seen in follow-up for acute kidney injury. Renal function stable. Creatinine 2.7 as of yesterday. No hematuria or dysuria. Oral intake good. No vomiting or diarrhea. Vital signs are stable. General: The patient appeared well nourished and normally developed. HEENT: Head exam is unremarkable. LUNGS: Breath sounds decreased. HEART: Rate and Rhythm are regular. ABDOMEN: Soft, no distention. Obese. EXTREMITITES: Trace edema. Chronic changes noted. Objective - Vital Signs Vital signs: Vital Signs Temp 98.6 F 10/21/21 07:15 Pulse 76 10/21/21 08:00 Resp 17 10/21/21 07:15 BP 176/92 10/21/21 07:15 Pulse Ox 96 10/21/21 07:15 Intake & Output 10/20/21 10/21/21 10/21/21 18:59 06:59 18:59 Intake Total 800 Output Total 250 Balance 550 Weight 100 kg Intake: IV 800 Lactated Ringers 1,000 ml 800 @ 100 mls/hr IV .Q10H [facility] Rx#:[id number] Output: Urine 250 Other: Voiding Method External Catheter # Voids 3 - Labs CBC & Chem 7: 10/20/21 06:31 10/20/21 06:31 Labs: Abnormal Lab Results - Last 24 Hours (Table) 10/20/21 10/20/21 10/20/21 Range/Units 11:34 16:44 20:13 POC Glucose (mg/dL) 168 H 233 H 224 H (75-99) mg/dL 10/21/21 Range/Units 07:08 POC Glucose (mg/dL) 119 H (75-99) mg/dL Microbiology - Last 24 Hours (Table) 10/18/21 09:50 Urine Culture - Final Urine,Voided Citrobacter amalonaticus Assessment and Plan Plan: Assessment: 1. Acute kidney injury secondary to ATN. Concern for anticoagulation related nephropathy - on low dose eliquis and no evidence of bleeding with stable hgb. Creatinine was 3.08 on admission and stable at 2.7 yesterday. Renal ultrasound showed normal-sized kidneys without any evidence of hydronephrosis. 2. Gross hematuria. This can be from anticoagulation as well as UTI. Urology following. Plan for cystoscopy outpatient once UTI resolved. 3. UTI with urine culture positive for Citrobacter on antibiotics. 4. Hypernatremia from lack of oral water intake. 5. Diabetes mellitus. 6. Proteinuria. This is most likely secondary to underlying diabetic kidney disease. Rule out GN. Serologies negative so far. Plan: Maintain Lasix. Follow-up pending serologies. Encourage oral intake. Avoid nephrotoxins. Continue to monitor renal function and urine output. Morning labs pending. Repeat UA.
--- NOTE | 2021-10-21 11:30 | P.CONS ---
History of Present Illness - Reason for Consult Consult date: 10/21/21 wound care - History of Present Illness This is a 80-year-old patient known to the wound care center who follows with Dr. Gina Stephen. She has been utilizing collagen silver to a ulceration to the lateral aspect of the left lower extremity. Patient had a trauma resulting in a necrotic skin flap that was removed. Original cause of wound was Trauma. The wound is currently classified as a Grade 2 wound with etiology of Diabetic Wound/Ulcer of the Lower Extremity and is located on the Left,Lateral Lower Leg. The wound measures 10cm length x 3.7cm width x 0.1cm depth; 29.06cm^2 area and 2.906cm^3 volume. There is no tunneling or undermining noted. There is a medium amount of serosanguineous drainage noted. The wound margin is well defined and not attached to the wound base. There is large (67-100%) red granulation within the wound bed. There is a small (1-33%) amount of necrotic tissue within the wound bed including Adherent Slough. The periwound skin appearance exhibited: Scarring. The periwound skin appearance did not exhibit: Callus, Crepitus, Excoriation, Induration, Rash, Dry/Scaly, Maceration, Atrophie [place], Cyanosis, Ecchymosis, Hemosiderin Staining, Mottled, Pallor, Rubor, Erythema. Periwound temperature was noted as No Abnormality. The periwound has tenderness on palpation. Review Of Systems: Constitutional: No fever, no chills, no night sweats. No weight change. No weakness, fatigue or lethargy. No daytime sleepiness. Integumentary:reports wounds, no lesions. No rash or pruritus. No unusual bruising. No change in hair or nails. Physical exam: General Appearance: Alert, cooperative, no distress, appears stated age. Skin: See HPI all other Skin color, texture, tugor normal, no rashes or lesions. Neurologic: Alert oriented x3 Assessment: 1. 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 Left lateral lower leg: Apply collagen silver, saline moistened gauze, dry gauze, rolled gauze and secure with paper tape. Apply Tubigrip to keep in place. Change Wednesday. May be applied today and kept on until Wednesday when he she is seen by home care. Next wound care appointment will be October 29 at 11:15. Thank you for the consultation any questions please contact the wound care center DNP note has been reviewed and discussed with Dr. Ramirez and the impression and plan of care has been directed as dictated. Past Medical History Past Medical History: Atrial Fibrillation, COPD, Diabetes Mellitus, Hyperlipidemia, Hypertension Additional Past Medical History / Comment(s): spinal stenosis, knee pain, left ear infection, home oxygen 3L, macular degeneration, right breast cancer History of Any Multi-Drug Resistant Organisms: MRSA, VRE Year Discovered:: 10/02/21 09/13/21 MRSA MDRO Source:: VRE URINE MRSA LEG Past Surgical History: Appendectomy, Breast Surgery, Cholecystectomy, Hysterectomy, Orthopedic Surgery Additional Past Surgical History / Comment(s): cervical laminectomy, bone graft arm, kidney stone removed, right breast lumpectomy x2 with radiation, left leg wound repair Past Psychological History: Depression Smoking Status: Former smoker Past Alcohol Use History: Occasional Past Drug Use History: None Reported - Past Family History Mother Additional Family Medical History / Comment(s): breast ca Medications and Allergies Home Medications Medication Instructions Recorded Confirmed Type Atorvastatin [Lipitor] 20 mg PO HS@0 07/15/14 10/18/21 History Apixaban [Eliquis] 2.5 mg PO BID@0800,199901/28/21 10/18/21 History Cetirizine HCl [Zyrtec] 10 mg PO HS@189901/28/21 10/18/21 History Cyanocobalamin [Vitamin B-12] 1,000 mcg PO DAILY@0601/28/21 10/18/21 History Latanoprost Ophth [Xalatan 0.005%] 1 drop BOTH EYES HS@189901/28/21 10/18/21 History Montelukast [Singulair] 10 mg PO HS@189901/28/21 10/18/21 History Roflumilast [Daliresp] 500 mcg PO DAILY@0600 01/28/21 10/18/21 History Vit C/E/Zn/Coppr/Lutein/Zeaxan 1 cap PO BID@0600,189901/28/21 10/18/21 History [Preservision Areds 2 Softgel] Cholecalciferol [Vitamin D3 (25 25 mcg PO DAILY@0600 02/06/21 10/18/21 History Mcg = 1000 Iu)] ALPRAZolam [Xanax] 0.25 mg PO DAILY PRN 09/03/21 10/18/21 History Ascorbic Acid [Vitamin C] 1,000 mg PO DAILY@0600 09/03/21 10/18/21 History Ipratropium-Albuterol Nebulize 3 ml INHALATION RT-TID@,,09/03/21 10/18/21 History [Duoneb 0.5 mg-3 mg/3 ml Soln] Sertraline [Zoloft] 50 mg PO TID@0600,1400,1900 09/03/21 10/18/21 History Sodium Bicarbonate Tab 650 mg PO BID@0600,1900 09/03/21 10/18/21 History Amiodarone [Cordarone] 200 mg PO BID@0700,1900 10/18/21 10/18/21 History Clotrimazole/Betameth Cream 1 applic TOPICAL BID@0600,1900 10/18/21 10/18/21 History [Lotrisone] Furosemide [Lasix] 40 mg PO DAILY@0600 10/18/21 10/18/21 History Insulin Glargine,Hum.rec.anlog 48 unit SQ HS@1900 10/18/21 10/18/21 History [Basaglar Kwikpen U-100] Melatonin 3 mg PO HS PRN 10/18/21 10/18/21 History Metoprolol Tartrate [Lopressor] 75 mg PO TID@0600,1400,1900 10/18/21 10/18/21 History Allergies Allergy/AdvReac Type Severity Reaction Status Date / Time diclofenac sodium Allergy Unknown Verified [facility]/18/21 [facility] AdvReac Rash/Hives Verified 10/18/21 12:15 Physical Exam Vitals: Vital Signs Temp Pulse Pulse Resp BP Pulse Ox 10/21/21 09:59 17 10/21/21 08:00 76 10/21/21 07:51 76 10/21/21 07:15 98.6 F 66 17 176/92 96 10/21/21 02:59 140/80 10/21/21 02:00 98.4 F 75 18 168/80 98 10/20/21 20:10 80 10/20/21 19:59 78 10/20/21 19:16 98.6 F 67 18 147/82 98 10/20/21 15:46 20 10/20/21 14:11 80 10/20/21 14:01 76 10/20/21 14:00 97.5 F L 78 26 H 135/73 98 Intake and Output 10/20/21 10/21/21 10/21/21 22:59 06:59 14:59 Intake Total 800 Balance 800 Intake: IV 800 Lactated Ringers 1,000 ml 800 @ 100 mls/hr IV .Q10H JENNIFER Rx#:[id number] Other: # Voids 3 Results CBC & Chem 7: 10/20/21 06:31 10/20/21 06:31 Labs: Abnormal Lab Results - Last 24 Hours (Table) 10/20/21 10/20/21 10/20/21 Range/Units 11:34 16:44 20:13 POC Glucose (mg/dL) 168 H 233 H 224 H (75-99) mg/dL 10/21/21 Range/Units 07:08 POC Glucose (mg/dL) 119 H (75-99) mg/dL Microbiology - Last 24 Hours (Table) 10/18/21 09:50 Urine Culture - Final Urine,Voided Citrobacter amalonaticus Assessment and Plan (1) Non-pressure chronic ulcer of left calf with muscle involvement without lisbet dence of necrosis Current Visit: No Status: Acute Code(s): L97.225 - NON-PRS CHR ULCER OF LEFT CALF WITH MSL INVL W/O EVD OF NECR SNOMED Code(s): 9433735428477
[2021-10-21 11:47] LABS: Glucose,Whole Blood 145 mg/dL (75-99)
[2021-10-21 12:50] LABS: Appearance,Urine Clear (Clear); Bacteria,Urine Moderate /hpf; Bilirubin,Urine Negative (Negative); Blood,Urine Negative (Negative); Color,Urine Light Yellow; Glucose,Urine (UA) Negative (Negative); Ketones,Urine Negative (Negative); Leukocyte Esterase,Urine Negative (Negative); Mucus,Urine Rare /hpf; Nitrite,Urine Negative (Negative); PH, Urine 6.5 (5.0-8.0); Protein,Urine 1+ (Negative); RBC,Urine 2 /hpf (0-5); Specific Gravity,Urine 1.009 (1.001-1.035); Squamous Epithelial Cell,Urine 1 /hpf (0-4); Urobilinogen,Urine <2.0 mg/dL (<2.0); WBC,Urine 2 /hpf (0-5)
[2021-10-21 13:36] LABS: Magnesium 2.1 mg/dL (1.5-2.4)
[2021-10-21 13:44] LABS: Albumin 3.24 g/dL (3.80-4.90); Gamma Globulin 0.88 g/dL (0.70-1.50)
[2021-10-21 13:47] LABS: ALT 17 U/L (8-44); AST 18 U/L (13-35); African American GFR (CKD) 20.5 (60.0-200.0); Albumin 3.6 g/dL (3.8-4.9); Albumin/Globulin Ratio 1.33 (1.60-3.17); Alkaline Phosphatase 98 U/L (41-126); BUN/Creat Ratio 18.92 Ratio (12.00-20.00); Blood Urea Nitrogen 47.3 mg/dL (9.0-27.0); Calcium 9.5 mg/dL (8.7-10.3); Carbon Dioxide 23.7 mmol/L (21.6-31.8); Chloride 103 mmol/L (96-109); Globulin 2.7 g/dL (1.6-3.3); Glucose 103 mg/dL (70-110); Non-African American GFR(CKD) 17.7 (60.0-200.0); Potassium 4.2 mmol/L (3.5-5.5); Sodium 146 mmol/L (135-145); Total Bilirubin <0.20 mg/dL (0.30-1.20); Total Protein 6.3 g/dL (6.2-8.2)
[2021-10-21 14:00] LABS: C-ANCA <1:20 Titer (<1:20)
--- NOTE | 2021-10-21 14:34 | P.DS ---
Providers Date of admission: 10/18/21 11:58 Expected date of discharge: 10/21/21 Attending physician: Reji Castelan Consults: 10/18/21 11:57 Consult Physician Routine Consulting Provider: Keri Brenner Consult Reason/Comments: unexplained gross hematuria, DEANDRE on CKD Do you want consulting provider notified?: Yes 10/19/21 10:59 Consult Physician Routine Consulting Provider: Keron Tenorio Consult Reason/Comments: gross hematuria Do you want consulting provider notified?: Yes Primary care physician: Cedrick Ruiz MD Hospital Course: Hematuria, acute, ongoing Acute kidney injury superimposed on stage IIIb CKD, improving Permanent atrial fibrillation, rate controlled Chronic systolic heart failure, EF 30-35% Type 2 diabetes, chronic, stable Hypertension, chronic, stable Hyperlipidemia, chronic, stable 80 year old woman with history of perm atrial fibrillation on eliquis, systolic heart failure, type 2 diabetes, hypertension, hyperlipidemia, CKD stage III B presented with acute kidney injury and hematuria. Nephrology and urology were consulted, patient was started on IV fluids with small amount of Lasix to ensure no clotting in the microvasculature of the kidney. Renal ultrasound was completed and was negative for hydronephrosis, hydroureter, kidney stones. Urine culture returned positive for urinary tract infection, and patient was placed on appropriate abx. Pt will be discharged home with plan to follow up with nephrology to ensure recovery of kidney function to baseline, which was improving daily during hospitalization, as well as with urology for cystoscopy to rule out intravesical pathology. Patient's Eliquis was continued during hospitalization and on discharge due to no drop in hgb. I spent 32 minutes coordinating this discharge. Assessment: Gen: awake, alert HEENT: normocephalic, atraumatic, good hearing acuity, moist mucous membranes Resp: good air exchange, breathing comfortably with no accessory muscle use CVS: good distal perfusion x 4, irregular rhythm, normal rate GI: soft, NTTP, ND : no SPT, no CVAT, lopez catheter not present, [place] catheter placed MSK: + pitting edema, no clubbing Neuro: non-focal, moving all extremities Psych: cooperative, euthymic mood Patient Condition at Discharge: Good Plan - Discharge Summary Discharge Rx Participant: Yes New Discharge Prescriptions: New Ciprofloxacin HCl 500 mg PO BID 8 Days #16 tab Continue Atorvastatin [Lipitor] 20 mg PO HS@1900 Montelukast [Singulair] 10 mg PO HS@1900 Vit C/E/Zn/Coppr/Lutein/Zeaxan [Preservision Areds 2 Softgel] 1 cap PO BID@06,1899 Latanoprost Ophth [Xalatan 0.005%] 1 drop BOTH EYES HS@1900 Cetirizine HCl [Zyrtec] 10 mg PO HS@190 Cyanocobalamin [Vitamin B-12] 1,000 mcg PO DAILY@0600 Apixaban [Eliquis] 2.5 mg PO BID@08,1999 Roflumilast [Daliresp] 500 mcg PO DAILY@0600 Cholecalciferol [Vitamin D3 (25 Mcg = 1000 Iu)] 25 mcg PO DAILY@0600 Ascorbic Acid [Vitamin C] 1,000 mg PO DAILY@06 Sodium Bicarbonate Tab 650 mg PO BID@0600,1899 Clotrimazole/Betameth Cream [Lotrisone] 1 applic TOPICAL BID@06,1899 Metoprolol Tartrate [Lopressor] 75 mg PO TID@0600,1400,0 Furosemide [Lasix] 40 mg PO DAILY@0600 Sertraline [Zoloft] 50 mg PO TID@0600,1400,1900 ALPRAZolam [Xanax] 0.25 mg PO DAILY PRN PRN Reason: Anxiety Ipratropium-Albuterol Nebulize [Duoneb 0.5 mg-3 mg/3 ml Soln] 3 ml INHALATION RT-TID@06,14,19 Melatonin 3 mg PO HS PRN PRN Reason: Insomnia Amiodarone [Cordarone] 200 mg PO BID@0700,1900 Changed Insulin Glargine,Hum.rec.anlog [Basaglar Kwikpen U-100] 36 unit SQ HS@1900 #0 Discharge Medication List Atorvastatin [Lipitor] 20 mg PO HS@1900 07/15/14 [History] Apixaban [Eliquis] 2.5 mg PO BID@0800,199901/28/21 [History] Cetirizine HCl [Zyrtec] 10 mg PO HS@1900 01/28/21 [History] Cyanocobalamin [Vitamin B-12] 1,000 mcg PO DAILY@0600 01/28/21 [History] Latanoprost Ophth [Xalatan 0.005%] 1 drop BOTH EYES HS@189901/28/21 [History] Montelukast [Singulair] 10 mg PO HS@189901/28/21 [History] Roflumilast [Daliresp] 500 mcg PO DAILY@0601/28/21 [History] Vit C/E/Zn/Coppr/Lutein/Zeaxan [Preservision Areds 2 Softgel] 1 cap PO BID@0600,189901/28/21 [History] Cholecalciferol [Vitamin D3 (25 Mcg = 1000 Iu)] 25 mcg PO DAILY@0602/06/21 [History] ALPRAZolam [Xanax] 0.25 mg PO DAILY PRN 09/03/21 [History] Ascorbic Acid [Vitamin C] 1,000 mg PO DAILY@0609/03/21 [History] Ipratropium-Albuterol Nebulize [Duoneb 0.5 mg-3 mg/3 ml Soln] 3 ml INHALATION RT-TID@06,14,19 09/03/21 [History] Sertraline [Zoloft] 50 mg PO TID@0600,1400,189909/03/21 [History] Sodium Bicarbonate Tab 650 mg PO BID@0600,189909/03/21 [History] Amiodarone [Cordarone] 200 mg PO BID@0700,189910/18/21 [History] Clotrimazole/Betameth Cream [Lotrisone] 1 applic TOPICAL BID@06,189910/18/21 [History] Furosemide [Lasix] 40 mg PO DAILY@0610/18/21 [History] Melatonin 3 mg PO HS PRN 10/18/21 [History] Metoprolol Tartrate [Lopressor] 75 mg PO TID@0600,1400,189910/18/21 [History] Ciprofloxacin HCl 500 mg PO BID 8 Days #16 tab 10/21/21 [Rx] Insulin Glargine,Hum.rec.anlog [Cassius Wilcox U-100] 36 unit SQ HS@1899 #0 10/21/21 [Rx] Follow up Appointment(s)/Referral(s): Cedrick Ruiz MD [Primary Care Provider] - 10/22/21 10:00 am (Please call office [phone] if unable to make this appointment) [facility] - As Needed Keron Tenorio MD [STAFF PHYSICIAN] - 2 Weeks (Office unable to make appointment at this time - patient to call and arrange appointment when discharged. Patient will need an office cystoscopy at her 2 week appointment. ) [facility] [[facility]FF] - 10/29/21 11:15 am Patient Instructions/Handouts: Acute Kidney Injury (DC) Activity/Diet/Wound Care/Special Instructions: Wound Care Instructions: Left lateral lower leg: Apply collagen silver, saline moistened gauze, dry gauze, rolled gauze and secure with paper tape. Apply Tubigrip to keep in place. Change Wednesday. May be applied today and kept on until Wednesday when he she is seen by home care. Next wound care appointment will be October 29 at 11:15. Follow-up with Dr. Tenorio in 2 weeks for possible office cystoscopy. Discharge Disposition: HOME WITH HOME HEALTH SERVICES
[2021-10-21 14:37] VITALS: BP 147/84; PULSE 77; RESP 18; TEMP 98.7
[2021-10-22 10:52] LABS: Anti-Glomerular Basement Memb 2 UNITS (0-20)
== END 2021-10-21 15:23 | disposition home health service (06) | DRG 683 ==
LOC: EC 09:12 → 5NMEDONC 11:58 → 4SSUR 12:32
PROVIDERS: ADMIT Internal Medicine; ATTEND Internal Medicine
DX: N17.0 Acute kidney failure with tubular necrosis (principal); E87.0 Hyperosmolality and hypernatremia; N39.0 Urinary tract infection, site not specified; I13.0 Hypertensive heart and chronic kidney disease with heart failure and stage 1 through stage 4 chronic kidney disease, or unspecified chronic kidney disease; I48.21 Permanent atrial fibrillation; I50.22 Chronic systolic (congestive) heart failure; L97.225 Non-pressure chronic ulcer of left calf with muscle involvement without evidence of necrosis; Z68.36 Body mass index [BMI] 36.0-36.9, adult; Z20.822 Contact with and (suspected) exposure to COVID-19; N18.32 Chronic kidney disease, stage 3b; R31.0 Gross hematuria; E11.21 Type 2 diabetes mellitus with diabetic nephropathy; E11.22 Type 2 diabetes mellitus with diabetic chronic kidney disease; B96.89 Other specified bacterial agents as the cause of diseases classified elsewhere; M48.00 Spinal stenosis, site unspecified; E11.622 Type 2 diabetes mellitus with other skin ulcer; R35.0 Frequency of micturition; E66.9 Obesity, unspecified; E78.5 Hyperlipidemia, unspecified; F32.A Depression, unspecified; G89.29 Other chronic pain; J44.9 Chronic obstructive pulmonary disease, unspecified; Z79.01 Long term (current) use of anticoagulants; Z79.899 Other long term (current) drug therapy; Z85.3 Personal history of malignant neoplasm of breast; Z87.440 Personal history of urinary (tract) infections; Z87.442 Personal history of urinary calculi; Z87.891 Personal history of nicotine dependence; Z90.710 Acquired absence of both cervix and uterus; Z99.81 Dependence on supplemental oxygen; Z88.8 Allergy status to other drugs, medicaments and biological substances; Z91.048 Other nonmedicinal substance allergy status; Z92.3 Personal history of irradiation; Z86.14 Personal history of Methicillin resistant Staphylococcus aureus infection
CPT/HCPCS: 36415; 76770; 80048; 80053; 80074; 81001; 82570; 83516; 83735; 84156; 84165; 85025; 85610; 85730; 86038; 86160; 86162; 86225; 86255; 86334; 86335; 87077; 87086; 87186; 87635; 94640; 94760; 99285

== ENCOUNTER → 2022-02-20 | Outpatient (CLI) | payer MEDICARE, BC ==
[2022-02-20 15:09] LABS: ABG Base Excess 5.3 mmol/L; ABG HCO3 30 mmol/L (21-25); ABG Oxygen Saturation 96.2 % (94-97); ABG PCO2 49 mmHg (35-45); ABG PO2 82 mmHg (83-108); ABG TCO2 32 mmol/L (19-24)
== END | disposition home or self-care (01) ==
LOC: LABWHC1 14:34
PROVIDERS: ATTEND Internal Medicine Critical Care Medicine
DX: J44.9 Chronic obstructive pulmonary disease, unspecified (principal)
CPT/HCPCS: 36600; 82805

== ENCOUNTER 2022-05-07 22:57 | Emergency (ER) | payer BC, MEDICARE, OTHER ==
--- NOTE | 2022-05-07 23:07 | ED ---
Fall HPI - General Stated Complaint: Fall, head injury on thinners Time Seen by Provider: 05/07/22 23:07 Source: RN notes reviewed, old records reviewed Mode of arrival: ambulatory Limitations: no limitations, altered mental status - History of Present Illness Initial Comments: This is a 81-year-old female poor historian. Patient comes in for fall patient is brought in by EMS to provide history patient's a fall from standing on blood thinners. No significant signs of trauma either on exam here in the ER or per EMS. Patient was sent DF for evaluation secondary to blood thinners and fall Complaint: fall -: hour(s) Fall From: standing When Fall Occurred: 1 hour RAIL LOAD[employer] Fall Witnessed: yes, by family, yes, by living facility staff Place Fall Occurred: home Loss of Consciousness: none Prolonged Down Time?: no Symptoms Prior to Fall: none Location: head, back Severity: mild Quality: aching Context: tripped/slipped Associated Symptoms: denies - Related Data Home Medications Medication Instructions Recorded Confirmed Atorvastatin [Lipitor] 20 mg PO HS@1900 07/15/14 10/18/21 Apixaban [Eliquis] 2.5 mg PO BID@08,199901/28/21 10/18/21 Cetirizine HCl [Zyrtec] 10 mg PO HS@1900 01/28/21 10/18/21 Cyanocobalamin [Vitamin B-12] 1,000 mcg PO DAILY@0601/28/21 10/18/21 Latanoprost Ophth [Xalatan 0.005%] 1 drop BOTH EYES HS@1900 01/28/21 10/18/21 Montelukast [Singulair] 10 mg PO HS@1900 01/28/21 10/18/21 Roflumilast [Daliresp] 500 mcg PO DAILY@0600 01/28/21 10/18/21 Vit C/E/Zn/Coppr/Lutein/Zeaxan 1 cap PO BID@0600,189901/28/21 10/18/21 [Preservision Areds 2 Softgel] Cholecalciferol [Vitamin D3 (25 25 mcg PO DAILY@0600 02/06/21 10/18/21 Mcg = 1000 Iu)] ALPRAZolam [Xanax] 0.25 mg PO DAILY PRN 09/03/21 10/18/21 Ascorbic Acid [Vitamin C] 1,000 mg PO DAILY@0600 09/03/21 10/18/21 Ipratropium-Albuterol Nebulize 3 ml INHALATION RT-TID@06,14,19 09/03/21 10/18/21 [Duoneb 0.5 mg-3 mg/3 ml Soln] Sertraline [Zoloft] 50 mg PO TID@0600,1400,1900 09/03/21 10/18/21 Sodium Bicarbonate Tab 650 mg PO BID@0600,1900 09/03/21 10/18/21 Amiodarone [Cordarone] 200 mg PO BID@0700,1900 10/18/21 10/18/21 Clotrimazole/Betameth Cream 1 applic TOPICAL BID@0600,1900 10/18/21 10/18/21 [Lotrisone] Furosemide [Lasix] 40 mg PO DAILY@0600 10/18/21 10/18/21 Melatonin 3 mg PO HS PRN 10/18/21 10/18/21 Metoprolol Tartrate [Lopressor] 75 mg PO TID@0600,1400,1900 10/18/21 10/18/21 Previous Rx's Medication Instructions Recorded Ciprofloxacin HCl 500 mg PO BID 8 Days #16 tab 10/21/21 Insulin Glargine,Hum.rec.anlog 36 unit SQ HS@1900 #0 10/21/21 [Basaglar Kwikpen U-100] Allergies Allergy/AdvReac Type Severity Reaction Status Date / Time diclofenac sodium Allergy Unknown Verified 10/18/21 12:15 [facility] adhesive tape AdvReac Rash/Hives Verified 10/18/21 12:15 Review of Systems ROS Statement: Those systems with pertinent positive or pertinent negative responses have been documented in the HPI. ROS Other: All systems not noted in ROS Statement are negative. Past Medical History Past Medical History: Atrial Fibrillation, COPD, Diabetes Mellitus, Hyperlipidemia, Hypertension Additional Past Medical History / Comment(s): spinal stenosis, knee pain, left ear infection, home oxygen 3L, macular degeneration, right breast cancer History of Any Multi-Drug Resistant Organisms: MRSA, VRE Date of last positivie culture/infection: 11/4/21 10/16/21 MRSA MDRO Source:: VRE URINE MRSA LEG Past Surgical History: Appendectomy, Breast Surgery, Cholecystectomy, Hysterectomy, Orthopedic Surgery Additional Past Surgical History / Comment(s): cervical laminectomy, bone graft arm, kidney stone removed, right breast lumpectomy x2 with radiation, left leg wound repair Past Psychological History: Depression Smoking Status: Former smoker Past Alcohol Use History: Occasional Past Drug Use History: None Reported - Past Family History Mother Additional Family Medical History / Comment(s): breast ca General Exam General appearance: alert, in no apparent distress Head exam: Present: atraumatic, normocephalic, normal inspection Eye exam: Present: normal appearance, PERRL, EOMI. Absent: scleral icterus, conjunctival injection, periorbital swelling ENT exam: Present: normal exam, mucous membranes moist Neck exam: Present: normal inspection. Absent: tenderness, meningismus, lymphadenopathy Respiratory exam: Present: normal lung sounds bilaterally. Absent: respiratory distress, wheezes, rales, rhonchi, stridor Cardiovascular Exam: Present: regular rate, normal rhythm, normal heart sounds. Absent: systolic murmur, diastolic murmur, rubs, gallop, clicks GI/Abdominal exam: Present: soft, normal bowel sounds. Absent: distended, t enderness, guarding, rebound, rigid Extremities exam: Present: normal inspection, full ROM, normal capillary refill. Absent: tenderness, pedal edema, joint swelling, calf tenderness Back exam: Present: normal inspection Neurological exam: Present: alert, oriented X3, CN II-XII intact Psychiatric exam: Present: normal affect, normal mood Skin exam: Present: warm, dry, intact, normal color. Absent: rash Course Vital Signs 05/07/22 05/08/22 23:14 00:15 Temperature 98.1 F Pulse Rate 63 61 Respiratory 16 18 Rate Blood Pressure 177/91 172/84 O2 Sat by Pulse 91 L 99 Oximetry - Reevaluation(s) Reevaluation #1: 05/08/22 00:07 Medical record is reviewed Reevaluation #2: 05/08/22 00:07 Patient family informed of results here in the ER, no distress Medical Decision Making - Medical Decision Making 81 female to the emergency department on blood thinners status post fall no injuries found here in the emergency department patient can be discharged home - Radiology Data Radiology results: report reviewed (CT brain C-spine x-ray chest x-ray pelvis negative for traumatic injury), image reviewed Disposition Clinical Impression: Fall Disposition: HOME SELF-CARE Condition: Good Instructions (If sedation given, give patient instructions): Fall Prevention for Older Adults (ED) Is patient prescribed a controlled substance at d/c from ED?: No Referrals: Cedrick Ruiz MD [Primary Care Provider] - 1-2 days Decision Time: 00:45
[2022-05-07 23:28] VITALS: TEMP 98.1
--- NOTE | 2022-05-08 00:18 | CT ---
EXAMINATION TYPE: CT brain jimmy wo con DATE OF EXAM: 05/07/2022 COMPARISON: 03/06/2022 HISTORY: fall CT DLP: 1518.3 mGycm Automated exposure control for dose reduction was used. Images obtained of the brain and cervical spine with no contrast. There is cerebral cortical atrophy. There is no mass effect or midline shift. There is some patchy hy podensity in the periventricular white matter. The calvarium is intact. Skull base is intact. There i s fairly normal aeration of the mastoid sinuses. The cervical vertebra show some straightening. There is hypertrophic anterior spurring in the mid and lower cervical spine with bridging osteophyte formation. The facet joints are intact. There is mild hypertrophic facet arthropathy. No subluxation. No compression fracture. 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 No fractures seen. Cerebral atrophy and chronic small vessel ischemia without change. No acute intracranial abnormality.
[2022-05-08 00:20] VITALS: RESP 18
--- NOTE | 2022-05-08 00:20 | XR ---
EXAMINATION TYPE: XR chest 1V portable DATE OF EXAM: 05/07/2022 COMPARISON: 10/02/2021 HISTORY: Fall. Pain TECHNIQUE: Single view FINDINGS: Heart appears enlarged. No heart failure. Lungs are clear of consolidation. There are no hi lar masses. The bony thorax appears intact. No pneumothorax. IMPRESSION: Cardiomegaly. No active cardiopulmonary disease. There is improved aeration of the lung b ases and clearing of pleural fluid compared to old exam.
--- NOTE | 2022-05-08 00:24 | XR ---
EXAMINATION TYPE: XR pelvis AP view DATE OF EXAM: 05/07/2022 COMPARISON: NONE HISTORY: Fall. Pain TECHNIQUE: Single view FINDINGS: The pelvic ring is intact. Sacroiliac joints are intact. There is mild acetabular spurring. No significant hip joint space narrowing. Proximal femurs are intact. IMPRESSION: Negative exam. No evidence of pelvic fracture.
[2022-05-08 03:30] VITALS: BP 168/81; PULSE 64
== END 2022-05-08 01:30 | disposition home or self-care (01) ==
LOC: EC 22:57
DX: Z04.3 Encounter for examination and observation following other accident (principal); J44.9 Chronic obstructive pulmonary disease, unspecified; E11.9 Type 2 diabetes mellitus without complications; I10 Essential (primary) hypertension; I48.91 Unspecified atrial fibrillation; E78.5 Hyperlipidemia, unspecified; Z87.891 Personal history of nicotine dependence; Z88.6 Allergy status to analgesic agent; Z91.09 Other allergy status, other than to drugs and biological substances; Z79.899 Other long term (current) drug therapy; Z79.01 Long term (current) use of anticoagulants
CPT/HCPCS: 70450; 71045; 72125; 72170; 99284

== ENCOUNTER 2022-05-16 22:04 | Emergency (ER) | payer MEDICARE ==
[2022-05-16 22:12] VITALS: BP 156/73; PULSE 70; RESP 19; TEMP 98
[2022-05-16] MEDS ORDERED: MORPHINE SULFATE 4 MG/ML SYRINGE IM STA (22:27)
[2022-05-16] MEDS ORDERED: LIDOCAINE/EPINEPHR/TETRACAINE 5 ML BOTTLE TOPICAL ONE (22:28)
[2022-05-16] MEDS ORDERED: TOPICAL SKIN ADHESIVE 1 EACH AMP TOPICAL ONE (22:28)
--- NOTE | 2022-05-16 22:39 | ED ---
Fall HPI - General Chief Complaint: Fall Stated Complaint: Fall Time Seen by Provider: 05/16/22 22:19 Source: patient, EMS Mode of arrival: EMS - History of Present Illness Initial Comments: This is a pleasant 81-year-old female with a history of atrial fibrillation, she is on blood thinners. Patient states she was trying to get into the shower with the assistance of a nurse. Patient states that she ended up tripping and falling. Patient sustained a laceration to the anterior aspect of her right lower leg. Patient denying any head or neck injury. She is denying any significant pain other than a burning sensation with the laceration is. Patient is up-to-date on immunizations. Denies any other symptomology. Denies any preceding symptomology. There were no preceding symptoms of syncope, chest pain, palpitations. No headache, no fever or chills, no changes in vision or hearing, no sore throat or difficulty with speech, no neck pain, no chest pain or shortness of breath, no abdominal pain, no nausea or vomiting, no changes in urination or bowel movements, no numbness or tingling, no extremity pain, no skin rashes or lesions. MD Complaint: fall - Related Data Home Medications Medication Instructions Recorded Confirmed Atorvastatin [Lipitor] 20 mg PO HS@1900 07/15/14 10/18/21 Apixaban [Eliquis] 2.5 mg PO BID@08,199901/28/21 10/18/21 Cetirizine HCl [Zyrtec] 10 mg PO HS@1900 01/28/21 10/18/21 Cyanocobalamin [Vitamin B-12] 1,000 mcg PO DAILY@59901/28/21 10/18/21 Latanoprost Ophth [Xalatan 0.005%] 1 drop BOTH EYES HS@0 01/28/21 10/18/21 Montelukast [Singulair] 10 mg PO HS@1900 01/28/21 10/18/21 Roflumilast [Daliresp] 500 mcg PO DAILY@0601/28/21 10/18/21 Vit C/E/Zn/Coppr/Lutein/Zeaxan 1 cap PO BID@0600,1900 01/28/21 10/18/21 [Preservision Areds 2 Softgel] Cholecalciferol [Vitamin D3 (25 25 mcg PO DAILY@0600 02/06/21 10/18/21 Mcg = 1000 Iu)] ALPRAZolam [Xanax] 0.25 mg PO DAILY PRN 09/03/21 10/18/21 Ascorbic Acid [Vitamin C] 1,000 mg PO DAILY@0600 09/03/21 10/18/21 Ipratropium-Albuterol Nebulize 3 ml INHALATION RT-TID@,,09/03/21 10/18/21 [Duoneb 0.5 mg-3 mg/3 ml Soln] Sertraline [Zoloft] 50 mg PO TID@0600,1400,1900 09/03/21 10/18/21 Sodium Bicarbonate Tab 650 mg PO BID@0600,1900 09/03/21 10/18/21 Amiodarone [Cordarone] 200 mg PO BID@0700,1900 10/18/21 10/18/21 Clotrimazole/Betameth Cream 1 applic TOPICAL BID@0600,1900 10/18/21 10/18/21 [Lotrisone] Furosemide [Lasix] 40 mg PO DAILY@0600 10/18/21 10/18/21 Melatonin 3 mg PO HS PRN 10/18/21 10/18/21 Metoprolol Tartrate [Lopressor] 75 mg PO TID@0600,1400,1900 10/18/21 10/18/21 Previous Rx's Medication Instructions Recorded Ciprofloxacin HCl 500 mg PO BID 8 Days #16 tab 10/21/21 Insulin Glargine,Hum.rec.anlog 36 unit SQ HS@1900 #0 10/21/21 [Basaglar Kwikpen U-100] Cephalexin [Keflex] 500 mg PO Q8H #21 cap 05/17/22 Allergies Allergy/AdvReac Type Severity Reaction Status Date / Time diclofenac sodium Allergy Unknown Verified 05/16/22 22:13 [From Voltaren] adhesive tape AdvReac Rash/Hives Verified 05/16/22 22:13 Review of Systems ROS Statement: Those systems with pertinent positive or pertinent negative responses have been documented in the HPI. ROS Other: All systems not noted in ROS Statement are negative. Past Medical History Past Medical History: No Reported History ( has a history of atrial fibrillation and is on blood thinners.), Atrial Fibrillation, COPD, Diabetes Mellitus, Hyperlipidemia, Hypertension Additional Past Medical History / Comment(s): spinal stenosis, knee pain, left ear infection, home oxygen 3L, macular degeneration, right breast cancer History of Any Multi-Drug Resistant Organisms: MRSA, VRE Date of last positivie culture/infection: 10/02/21 09/13/21 MRSA MDRO Source:: VRE URINE MRSA LEG Past Surgical History: Appendectomy, Breast Surgery, Cholecystectomy, Hysterectomy, Orthopedic Surgery Additional Past Surgical History / Comment(s): cervical laminectomy, bone graft arm, kidney stone removed, right breast lumpectomy x2 with radiation, left leg wound repair Past Psychological History: Depression Smoking Status: Former smoker Past Alcohol Use History: Occasional Past Drug Use History: None Reported - Past Family History Mother Additional Family Medical History / Comment(s): breast ca General Exam General appearance: alert, in no apparent distress Head exam: Present: atraumatic, normocephalic, normal inspection Eye exam: Present: normal appearance, PERRL, EOMI. Absent: scleral icterus, conjunctival injection, periorbital swelling ENT exam: Present: normal exam, normal oropharynx, mucous membranes moist, normal external ear exam Neck exam: Present: normal inspection, full ROM. Absent: tenderness, meningismus, lymphadenopathy Respiratory exam: Present: normal lung sounds bilaterally. Absent: respiratory distress, wheezes, rales, rhonchi, stridor Cardiovascular Exam: Present: regular rate, normal rhythm, normal heart sounds. Absent: systolic murmur, diastolic murmur, rubs, gallop, clicks GI/Abdominal exam: Present: soft, normal bowel sounds. Absent: distended, tenderness, guarding, rebound, rigid Extremities exam: Present: full ROM, normal capillary refill, other (No significant tenderness. Patient has a large laceration to the anterior aspect of the right lower leg. No foreign body, no significant tenderness, minimal bleeding, no distal or proximal injuries, pulses intact). Absent: tenderness, pedal edema, joint swelling, calf tenderness Back exam: Present: normal inspection Neurological exam: Present: alert, oriented X3, CN II-XII intact Psychiatric exam: Present: normal affect, normal mood Skin exam: Present: warm, dry, intact, normal color. Absent: rash Course Vital Signs 05/16/22 22:10 Temperature 98 F Pulse Rate 70 Respiratory 19 Rate Blood Pressure 156/73 O2 Sat by Pulse 97 Oximetry Procedures - Laceration Laceration #1 Consent Obtained: verbal consent Indication: laceration Site: lower extremity Size (cm): 15 Description: flap (Large skin tear with partial devitalized tissue.) Depth: simple, single layer Pre-repair: wound explored, irrigated extensively, deep structures intact, foreign body removed, extensive debridement (. Debridement 2 x 2 centimeters with sterile forceps and scissors, devitalized tissue) Type of Sutures: other (Tissue adhesive) Technique: other (Tissue adhesive) Patient Tolerated Procedure: well, no complications Medical Decision Making - Medical Decision Making Large skin tear to the anterior aspect of the right lower leg --no other injuries per patient. She is up-to-date on tetanus. Counseled the patient on wound care, signs and symptoms of infection, follow-up. The case was discussed in detail with ED attending physician. Presentation, findings, treatment plan discussed in detail. Gas Tender Dr. Umaña Discussed wound care. Discussed signs and symptoms of infection. Cephalexin for prophylaxis. Patient reevaluated prior to discharge and is neurovascularly intact. Cranial nerves II through XII intact, alert and oriented 4. Disposition Clinical Impression: Laceration of right lower leg, Fall Disposition: HOME SELF-CARE Condition: Good Instructions (If sedation given, give patient instructions): Fall Prevention for Older Adults (ED), Skin Adhesive Care (ED) Additional Instructions: Follow-up with your regular physician as directed. Return to the ER immediately if any symptoms worsen, new symptoms arise, or any other problems develop. Take antibiotics as directed. Prescriptions: Cephalexin [Keflex] 500 mg PO Q8H #21 cap Is patient prescribed a controlled substance at d/c from ED?: No Referrals: Cedrick Ruiz MD [Primary Care Provider] - 1-2 days
== END 2022-05-17 02:01 | disposition home or self-care (01) ==
LOC: EC 22:04
DX: S81.811A Laceration without foreign body, right lower leg, initial encounter (principal); J44.9 Chronic obstructive pulmonary disease, unspecified; E11.9 Type 2 diabetes mellitus without complications; E78.5 Hyperlipidemia, unspecified; I10 Essential (primary) hypertension; Z87.891 Personal history of nicotine dependence; Z91.048 Other nonmedicinal substance allergy status; Z88.8 Allergy status to other drugs, medicaments and biological substances; W19.XXXA Unspecified fall, initial encounter
CPT/HCPCS: 99284; 12035; J2270

== ENCOUNTER 2022-07-23 19:14 | Inpatient (IN) | payer MEDICARE, BC ==
--- NOTE | 2022-07-23 21:33 | ED ---
General Adult HPI - General Chief complaint: Urogenital Stated complaint: ENDY,blood in urine Time Seen by Provider: 07/23/22 21:05 Source: patient Mode of arrival: ambulatory Limitations: no limitations - History of Present Illness Initial comments: This patient is an 81-year-old woman who presents to have evaluation for hematuria. Patient states that she lives in assisted living and today when the nurses was assisting her to the bathroom and she had noted some blood in the urine. In addition after going to the bathroom patient's pulse ox reading was low, she was off the oxygen at the time. The patient states that her breathing has not felt bad other than that. She does note that she has had 2 weeks of dysuria. Patient has not noted fever or chills. No chest or abdominal pain. No urinary frequency. She has had some incontinence recently which she states is not usual for her. No flank pain -: hour(s) Severity scale (1-10): 0 Improves with: none Worsens with: none Treatments Prior to Arrival: none - Related Data Home Medications Medication Instructions Recorded Confirmed Atorvastatin [Lipitor] 20 mg PO HS@1900 07/15/14 10/18/21 Apixaban [Eliquis] 2.5 mg PO BID@0800,199901/28/21 10/18/21 Cetirizine HCl [Zyrtec] 10 mg PO HS@1900 01/28/21 10/18/21 Cyanocobalamin [Vitamin B-12] 1,000 mcg PO DAILY@0600 01/28/21 10/18/21 Latanoprost Ophth [Xalatan 0.005%] 1 drop BOTH EYES HS@1900 01/28/21 10/18/21 Montelukast [Singulair] 10 mg PO HS@1900 01/28/21 10/18/21 Roflumilast [Daliresp] 500 mcg PO DAILY@0600 01/28/21 10/18/21 Vit C/E/Zn/Coppr/Lutein/Zeaxan 1 cap PO BID@0600,1900 01/28/21 10/18/21 [Preservision Areds 2 Softgel] Cholecalciferol [Vitamin D3 (25 25 mcg PO DAILY@0600 02/06/21 10/18/21 Mcg = 1000 Iu)] ALPRAZolam [Xanax] 0.25 mg PO DAILY PRN 09/03/21 10/18/21 Ascorbic Acid [Vitamin C] 1,000 mg PO DAILY@0600 09/03/21 10/18/21 Ipratropium-Albuterol Nebulize 3 ml INHALATION RT-TID@06,14,19 09/03/21 10/18/21 [Duoneb 0.5 mg-3 mg/3 ml Soln] Sertraline [Zoloft] 50 mg PO TID@0600,1400,1900 09/03/21 10/18/21 Sodium Bicarbonate Tab 650 mg PO BID@0600,1900 09/03/21 10/18/21 Amiodarone [Cordarone] 200 mg PO BID@0700,1900 10/18/21 10/18/21 Clotrimazole/Betameth Cream 1 applic TOPICAL BID@0600,1900 10/18/21 10/18/21 [Lotrisone] Furosemide [Lasix] 40 mg PO DAILY@0600 10/18/21 10/18/21 Melatonin 3 mg PO HS PRN 10/18/21 10/18/21 Metoprolol Tartrate [Lopressor] 75 mg PO TID@0600,1400,1900 10/18/21 10/18/21 Previous Rx's Medication Instructions Recorded Ciprofloxacin HCl 500 mg PO BID 8 Days #16 tab 10/21/21 Insulin Glargine,Hum.rec.anlog 36 unit SQ HS@1900 #0 10/21/21 [Basaglar Kwikpen U-100] Cephalexin [Keflex] 500 mg PO Q8H #21 cap 05/17/22 Allergies Allergy/AdvReac Type Severity Reaction Status Date / Time diclofenac sodium Allergy Unknown Verified 07/23/22 20:03 [From Voltaren] adhesive tape AdvReac Rash/Hives Verified 07/23/22 20:03 Review of Systems ROS Statement: Those systems with pertinent positive or pertinent negative responses have been documented in the HPI. ROS Other: All systems not noted in ROS Statement are negative. Constitutional: Denies: fever, chills, weakness Respiratory: Denies: cough, dyspnea, wheezes Cardiovascular: Reports: edema (Chronic). Denies: chest pain, palpitations, syncope Gastrointestinal: Denies: abdominal pain, nausea, vomiting, diarrhea, constipation Genitourinary: Reports: dysuria, hematuria. Denies: frequency Musculoskeletal: Denies: back pain Skin: Denies: rash Neurological: Denies: headache, weakness, numbness Past Medical History Past Medical History: No Reported History, Atrial Fibrillation, COPD, Diabetes Mellitus, Hyperlipidemia, Hypertension Additional Past Medical History / Comment(s): spinal stenosis, knee pain, left ear infection, home oxygen 3L, macular degeneration, right breast cancer History of Any Multi-Drug Resistant Organisms: MRSA, VRE Date of last positivie culture/infection: 10/02/21 09/13/21 MRSA MDRO Source:: VRE URINE MRSA LEG Past Surgical History: Appendectomy, Breast Surgery, Cholecystectomy, Hysterectomy, Orthopedic Surgery Additional Past Surgical History / Comment(s): cervical laminectomy, bone graft arm, kidney stone removed, right breast lumpectomy x2 with radiation, left leg wound repair Past Psychological History: Depression Smoking Status: Former smoker Past Alcohol Use History: Occasional Past Drug Use History: None Reported - Past Family History Mother Additional Family Medical History / Comment(s): breast ca General Exam Limitations: no limitations General appearance: alert, in distress ( mild respiratory distress on my arrival in the room. Patient mildly tachypnea However she is not on oxygen.) Head exam: Present: atraumatic, normocephalic Eye exam: Present: normal appearance Respiratory exam: Present: respiratory distress, wheezes. Absent: rales, rhonchi, stridor, accessory muscle use, decreased breath sounds Cardiovascular Exam: Present: irregular rhythm, systolic murmur, gallop. Absent: diastolic murmur, rubs GI/Abdominal exam: Present: soft. Absent: distended, tenderness, guarding, rebound, rigid, mass Extremities exam: Present: normal capillary refill, pedal edema. Absent: calf tenderness Back exam: Present: normal inspection. Absent: CVA tenderness (R), CVA tenderness (L) Neurological exam: Present: alert Skin exam: Present: warm, dry, intact, normal color. Absent: rash Course Vital Signs 07/23/22 07/23/22 19:59 22:22 Temperature 98.6 F Pulse Rate 73 74 Respiratory 20 20 Rate Blood Pressure 140/63 119/97 O2 Sat by Pulse 92 L 96 Oximetry EKG Findings - EKG Comments: EKG Findings:: Possible old anterior infarct. - EKG Results: EKG: interpreted by ERMD EKG shows: atrial fibrillation (Rate 77 bpm) Medical Decision Making - Lab Data Result diagrams: 07/23/22 21:03 07/23/22 21:03 Lab Results 07/23/22 07/23/22 07/23/22 Range/Units 21:03 21:03 21:03 WBC 10.2 (3.8-10.6) k/uL RBC 3.87 (3.80-5.40) m/uL Hgb 11.2 L (11.4-16.0) gm/dL Hct 37.1 (34.0-46.0) % MCV 95.8 (80.0-100.0) fL MCH 29.0 (25.0-35.0) pg MCHC 30.3 L (31.0-37.0) g/dL RDW 15.0 (11.5-15.5) % Plt Count 298 (150-450) k/uL MPV 7.2 Neutrophils % 69 % Lymphocytes % 20 % Monocytes % 5 % Eosinophils % 3 % Basophils % 1 % Neutrophils # 7.0 (1.3-7.7) k/uL Lymphocytes # 2.1 (1.0-4.8) k/uL Monocytes # 0.6 (0-1.0) k/uL Eosinophils # 0.3 (0-0.7) k/uL Basophils # 0.1 (0-0.2) k/uL Hypochromasia Slight PT 11.0 (9.0-12.0) sec INR 1.0 (<1.2) APTT 25.8 (22.0-30.0) sec Sodium 138 (137-145) mmol/L Potassium 4.3 (3.5-5.1) mmol/L Chloride 98 (98-107) mmol/L Carbon Dioxide 25 (22-30) mmol/L Anion Gap 15 mmol/L BUN 56 H (7-17) mg/dL Creatinine 2.28 H (0.52-1.04) mg/dL Est GFR (CKD-EPI)AfAm 23 (>60 ml/min/1.73 sqM) Est GFR (CKD-EPI)NonAf 20 (>60 ml/min/1.73 sqM) Glucose 231 H (74-99) mg/dL Calcium 8.9 (8.4-10.2) mg/dL Magnesium 1.9 (1.6-2.3) mg/dL Total Bilirubin 0.3 (0.2-1.3) mg/dL AST 66 H (14-36) U/L ALT 55 H (4-34) U/L Alkaline Phosphatase 230 H (38-126) U/L Troponin I (0.000-0.034) ng/mL NT-Pro-B Natriuret Pep pg/mL Total Protein 7.1 (6.3-8.2) g/dL Albumin 3.4 L (3.5-5.0) g/dL Urine Color Urine Appearance (Clear) Urine RBC (0-5) /hpf Urine WBC (0-5) /hpf Urine WBC Clumps (None) /hpf Ur Squamous Epith Cells (0-4) /hpf Urine Bacteria (None) /hpf Urine Yeast (Budding) (None) /hpf 07/23/22 07/23/22 07/23/22 Range/Units 21:03 21:03 22:18 WBC (3.8-10.6) k/uL RBC (3.80-5.40) m/uL Hgb (11.4-16.0) gm/dL Hct (34.0-46.0) % MCV (80.0-100.0) fL MCH (25.0-35.0) pg MCHC (31.0-37.0) g/dL RDW (11.5-15.5) % Plt Count (150-450) k/uL MPV Neutrophils % % Lymphocytes % % Monocytes % % Eosinophils % % Basophils % % Neutrophils # (1.3-7.7) k/uL Lymphocytes # (1.0-4.8) k/uL Monocytes # (0-1.0) k/uL Eosinophils # (0-0.7) k/uL Basophils # (0-0.2) k/uL Hypochromasia PT (9.0-12.0) sec INR (<1.2) APTT (22.0-30.0) sec Sodium (137-145) mmol/L Potassium (3.5-5.1) mmol/L Chloride (98-107) mmol/L Carbon Dioxide (22-30) mmol/L Anion Gap mmol/L BUN (7-17) mg/dL Creatinine (0.52-1.04) mg/dL Est GFR (CKD-EPI)AfAm (>60 ml/min/1.73 sqM) Est GFR (CKD-EPI)NonAf (>60 ml/min/1.73 sqM) Glucose (74-99) mg/dL Calcium (8.4-10.2) mg/dL Magnesium (1.6-2.3) mg/dL Total Bilirubin (0.2-1.3) mg/dL AST (14-36) U/L ALT (4-34) U/L Alkaline Phosphatase (38-126) U/L Troponin I <0.012 (0.000-0.034) ng/mL NT-Pro-B Natriuret Pep 3480 pg/mL Total Protein (6.3-8.2) g/dL Albumin (3.5-5.0) g/dL Urine Color Dark Brown Urine Appearance Turbid H (Clear) Urine RBC >182 H (0-5) /hpf Urine WBC >182 H (0-5) /hpf Urine WBC Clumps Many H (None) /hpf Ur Squamous Epith Cells 6 H (0-4) /hpf Urine Bacteria Many H (None) /hpf Urine Yeast (Budding) Many H (None) /hpf Disposition Clinical Impression: UTI (urinary tract infection) Disposition: ADMITTED IP TO THIS HOSP Condition: Fair Is patient prescribed a controlled substance at d/c from ED?: No Referrals: Cedrick Ruiz MD [Primary Care Provider] - 1-2 days
[2022-07-23 21:41] LABS: Basophils # (A) 0.1 k/uL (0-0.2); Basophils % (A) 1 %; Eosinophils # (A) 0.3 k/uL (0-0.7); Eosinophils % (A) 3 %; HCT 37.1 % (34.0-46.0); HGB 11.2 gm/dL (11.4-16.0); Hypochromasia Slight; Lymphocytes # (A) 2.1 k/uL (1.0-4.8); Lymphocytes % (A) 20 %; MCHC 30.3 g/dL (31.0-37.0); MCV 95.8 fL (80.0-100.0); Mean Platelet Volume 7.2; Monocytes # (A) 0.6 k/uL (0-1.0); Monocytes % (A) 5 %; Neutrophils % (A) 69 %; Platelet Count 298 k/uL (150-450); RBC 3.87 m/uL (3.80-5.40); WBC 10.2 k/uL (3.8-10.6)
[2022-07-23 21:53] LABS: Albumin 3.4 g/dL (3.5-5.0); Calcium 8.9 mg/dL (8.4-10.2); Magnesium 1.9 mg/dL (1.6-2.3); Potassium 4.3 mmol/L (3.5-5.1); Total Bilirubin 0.3 mg/dL (0.2-1.3); Total Protein 7.1 g/dL (6.3-8.2)
[2022-07-23 22:29] LABS: Partial Thromboplastin Time 25.8 sec (22.0-30.0)
[2022-07-23 22:44] LABS: Bacteria,Urine Many /hpf; Budding Yeast,Urine Many /hpf; RBC,Urine >182 /hpf (0-5); Squamous Epithelial Cell,Urine 6 /hpf (0-4); WBC,Urine >182 /hpf (0-5)
[2022-07-23 22:45] LABS: Color,Urine Dark Brown
[2022-07-23 22:46] LABS: Appearance,Urine Turbid (Clear)
--- NOTE | 2022-07-23 22:57 | XR ---
EXAMINATION TYPE: XR chest 2V DATE OF EXAM: 07/23/2022 COMPARISON: NONE HISTORY: Short of breath TECHNIQUE: 2 views FINDINGS: Heart is enlarged. There is some coarsening of the interstitial markings. No heart failure seen. There are no hilar masses. Mediastinum is normal. IMPRESSION: Mild increased interstitial density in the left lower lobe compared to old exams no heart failure seen. Mild cardiomegaly
[2022-07-23] MEDS ORDERED: ACETAMINOPHEN TAB 325 MG TAB PO PRN (23:03)
[2022-07-23] MEDS ORDERED: NALOXONE 0.4 MG/ML 1 ML VIAL IV PRN (23:03)
[2022-07-23] MEDS ORDERED: AZITHROMYCIN 500 MG TAB PO STA (23:50)
[2022-07-24] MEDS ORDERED: ALPRAZolam 0.25 MG TAB PO PRN (06:16)
--- NOTE | 2022-07-24 06:24 | P.HPIM ---
History of Present Illness H&P Date: 07/24/22 Chief Complaint: hematuria 81-year-old female with diabetes mellitus, obstructive sleep apnea, COPD, A. fib on blood thinners Patient is an assisted living facility resident. Her nurse today noted that she's having hematuria patient reported that she's been having some dysuria over the past week or 2 but otherwise denies any associated abdominal pain denies any nausea vomiting denies any fevers or chills. She denies any diarrhea. As she was going to the bathroom and back the nurse noticed that her oxygen saturation was dropping patient does use home oxygen at 3 L when needed. Due to all that she was sent to the hospital. Patient reports no coughing however she' s been feeling tired and easily winded with just walking around which is unusual for her. She denies any sick contacts. Denies any GI bleeding. Denies any headache or focal neuro deficits. Workup in the ED showed mild anemia , no leukocytosis Chest x-ray showed increased density in the left lower lobe. Urinalysis was positive Patient admitted for treatment of UTI and pneumonia Patient admits to history of smoking she quit 15 years ago she denies any illicit drugs or alcohol Review of Systems Pertinent positives as noted in HPI. All other systems were reviewed and are negative Past Medical History Past Medical History: No Reported History, Atrial Fibrillation, COPD, Diabetes Mellitus, Hyperlipidemia, Hypertension Additional Past Medical History / Comment(s): spinal stenosis, knee pain, left ear infection, home oxygen 3L, macular degeneration, right breast cancer History of Any Multi-Drug Resistant Organisms: MRSA, VRE Date of last positivie culture/infection: 10/02/21 09/13/21 MRSA MDRO Source:: VRE URINE MRSA LEG Past Surgical History: Appendectomy, Breast Surgery, Cholecystectomy, Hysterectomy, Orthopedic Surgery Additional Past Surgical History / Comment(s): cervical laminectomy, bone graft arm, kidney stone removed, right breast lumpectomy x2 with radiation, left leg wound repair Past Psychological History: Depression Smoking Status: Former smoker Past Alcohol Use History: Occasional Past Drug Use History: None Reported - Past Family History Mother Additional Family Medical History / Comment(s): breast ca Medications and Allergies Home Medications Medication Instructions Recorded Confirmed Type Atorvastatin [Lipitor] 20 mg PO HS@1900 07/15/14 07/23/22 History Apixaban [Eliquis] 2.5 mg PO BID@00,199901/28/21 07/23/22 History Cetirizine HCl [Zyrtec] 10 mg PO HS@189901/28/21 07/23/22 History Cyanocobalamin [Vitamin B-12] 1,000 mcg PO DAILY@0600 01/28/21 07/23/22 History Latanoprost Ophth [Xalatan 0.005%] 1 drop BOTH EYES HS@189901/28/21 07/23/22 History Montelukast [Singulair] 10 mg PO HS@19001/28/21 07/23/22 History Roflumilast [Daliresp] 500 mcg PO DAILY@0601/28/21 07/23/22 History Vit C/E/Zn/Coppr/Lutein/Zeaxan 1 cap PO BID@0600,19001/28/21 07/23/22 History [Preservision Areds 2 Softgel] Cholecalciferol [Vitamin D3 (25 25 mcg PO DAILY@0602/06/21 07/23/22 History Mcg = 1000 Iu)] ALPRAZolam [Xanax] 0.25 mg PO DAILY PRN 09/03/21 07/23/22 History Ascorbic Acid [Vitamin C] 1,000 mg PO DAILY@0600 09/03/21 07/23/22 History Ipratropium-Albuterol Nebulize 3 ml INHALATION RT-TID@06,14,19 09/03/21 07/23/22 History [Duoneb 0.5 mg-3 mg/3 ml Soln] Sertraline [Zoloft] 50 mg PO TID@0600,1400,0 09/03/21 07/23/22 History Sodium Bicarbonate Tab 650 mg PO BID@0600,1900 09/03/21 07/23/22 History Amiodarone [Cordarone] 200 mg PO BID@0600,0 10/18/21 07/23/22 History Clotrimazole/Betameth Cream 1 applic TOPICAL BID PRN 10/18/21 07/23/22 History [Lotrisone] Furosemide [Lasix] 40 mg PO DAILY@0600 10/18/21 07/23/22 History Melatonin 3 mg PO HS@1900 10/18/21 07/23/22 History Metoprolol Tartrate [Lopressor] 75 mg PO TID@0600,1400,1900 10/18/21 07/23/22 History Azelastine HCl 1 spray EA NOSTRIL BID@0600,1800 07/23/22 07/23/22 History PRN Clotrimazole/Betameth Cream 1 applic TOPICAL BID@0600,1900 07/23/22 07/23/22 History [Lotrisone] Gabapentin 300 mg PO HS@1900 07/23/22 07/23/22 History Insulin Glargine,Hum.rec.anlog 46 units SQ HS@1900 07/23/22 07/23/22 History [Toujeo Solostar] Insulin Lispro [humaLOG Kwikpen] See Protocol SQ AC-TID@06,1100,1600 07/23/22 07/23/22 History Ipratropium [place] 0.06%Nasal 1 - 2 spray EA NOSTRIL TID PRN 07/23/22 07/23/22 History [Atrovent Nasal 0.06%] Melatonin 3 mg PO HS PRN 07/23/22 07/23/22 History Mupirocin 2% Oint [Bactroban 2% 1 applic NASAL BID PRN 07/23/22 07/23/22 History Oint] amLODIPine [Norvasc] 2.5 mg PO DAILY@0600 07/23/22 07/23/22 History Allergies Allergy/AdvReac Type Severity Reaction Status Date / Time diclofenac sodium Allergy Unknown Verified 07/23/22 23:25 [From [facility]] adhesive tape AdvReac Rash/Hives Verified 07/23/22 23:25 Physical Exam Vitals: Vital Signs Temp Pulse Resp BP Pulse Ox 07/24/22 05:39 73 20 157/59 100 07/23/22 22:22 98.6 F 74 20 119/97 96 07/23/22 19:59 73 20 140/63 92 L Intake and Output 07/23/22 07/23/22 07/24/22 14:59 22:59 06:59 Other: Voiding Method Bedside Commode Weight 90.718 kg Constitutional: No acute distress, conversant, pleasant Eyes: Anicteric sclerae, moist conjunctiva, Pupils equal round reactive to light ENMT: NC/AT Oropharynx clear, no erythema, or exudates Neck: Supple, no masses, or JVD No carotid bruits No thyromegaly Lungs: Clear to auscultation Clear to percussion Normal respiratory effort, no accessory muscle use Cardiovascular: Heart irregular in rate and rhythm, systolic murmurs, no gallops, or rubs No peripheral edema Abdominal: Soft Nontender, no guarding, rebound or rigidity Abdomen moving with respiration Normoactive bowel sounds No hepatomegaly, No splenomegaly No palpable mass No abdominal wall hernia noted Skin: Normal temperature, tone, texture, turgor No induration No subcutaneous nodules No rash, lesions No ulcers Extremities: No digital cyanosis No clubbing Pedal pulses intact and symmetrical Radial pulses intact and symmetrical No calf tenderness Psychiatric: Alert and oriented to person, place and time Appropriate affect fair judgement Neuro Muscles Strength 4/5 in all 4 extremities Sensation to light touch grossly present throughout Cranial nerves II-XII grossly intact No focal sensory deficits Lymphatics: no palpable cervical or supraclavicular , or inguinal lymph nodes Results CBC & Chem 7: 07/23/22 21:03 07/23/22 21:03 Labs: Abnormal Lab Results - Last 24 Hours (Table) 07/23/22 07/23/22 07/23/22 Range/Units 21:03 21:03 22:18 Hgb 11.2 L (11.4-16.0) gm/dL MCHC 30.3 L (31.0-37.0) g/dL BUN 56 H (7-17) mg/dL Creatinine 2.28 H (0.52-1.04) mg/dL Glucose 231 H (74-99) mg/dL AST 66 H (14-36) U/L ALT 55 H (4-34) U/L Alkaline Phosphatase 230 H (38-126) U/L Albumin 3.4 L (3.5-5.0) g/dL Urine Appearance Turbid H (Clear) Urine RBC >182 H (0-5) /hpf Urine WBC >182 H (0-5) /hpf Urine WBC Clumps Many H (None) /hpf Ur Squamous Epith Cells 6 H (0-4) /hpf Urine Bacteria Many H (None) /hpf Urine Yeast (Budding) Many H (None) /hpf Microbiology - Last 24 Hours (Table) 07/23/22 22:18 Urine Culture - Preliminary Urine,Clean Catch Assessment and Plan Assessment: Acute on chronic hypoxic respiratory failure v Urinary tract infection Community-acquired pneumonia Patient initiated on antibiotics with azithromycin and Rocephin Follow-up cultures Gentle IV fluid hydration with saline Symptomatic control of any fever with Tylenol Zofran when necessary for nausea vomiting Supplemental oxygen as needed Diabetes mellitus Insulin sliding scale Continue with basal insulin Chronic conditions COPD on home oxygen Obstructive sleep apnea on CPAP Atrial fibrillation on blood thinners CK D stable DVT prophylaxis on eliquis Full code
[2022-07-24 08:26] LABS: Glucose,Whole Blood 286 mg/dL (70-110)
[2022-07-24] MEDS: APIXABAN 2.5 MG TABLET PO SCH ×2 (08:38→20:44)
[2022-07-24] MEDS: INSULIN ASPART (NovoLOG) 100 UNIT/ML VIAL SQ SCH ×4 (08:39→21:42)
[2022-07-24 11:42] LABS: Glucose,Whole Blood 217 mg/dL (70-110)
[2022-07-24] MEDS: AZITHROMYCIN 500 MG TAB PO SCH (13:11)
[2022-07-24] MEDS: METOPROLOL TARTRATE 25 MG TAB PO SCH ×2 (14:15→20:43)
[2022-07-24] MEDS: SERTRALINE 50 MG TAB PO SCH ×2 (14:16→20:44)
[2022-07-24 17:35] LABS: Glucose,Whole Blood 120 mg/dL (70-110)
[2022-07-24] MEDS ORDERED: ATORVASTATIN 20 MG TAB PO SCH (19:00)
[2022-07-24] MEDS ORDERED: MONTELUKAST 10 MG TAB PO SCH (19:00)
[2022-07-24] MEDS ORDERED: GABAPENTIN 300 MG CAP PO SCH (19:00)
[2022-07-24] MEDS ORDERED: INSULIN DETEMIR (LEVEMIR) 100 UNIT/ML SYR SQ SCH (19:00)
[2022-07-24 20:34] LABS: Glucose,Whole Blood 216 mg/dL (70-110)
[2022-07-24] MEDS: AMIODARONE 200 MG TAB PO SCH (20:44)
[2022-07-24] MEDS: SODIUM BICARBONATE TAB 650 MG TAB PO SCH (20:44)
[2022-07-24 21:50] VITALS: RESP 24; TEMP 97.9
[2022-07-24] MEDS: SODIUM CHLORIDE 0.9% 1,000 ML IV SCH ×2 (22:31→22:45)
[2022-07-25 04:26] VITALS: BP 149/72; PULSE 69
[2022-07-25] MEDS: METOPROLOL TARTRATE 25 MG TAB PO SCH (05:51)
[2022-07-25] MEDS: SERTRALINE 50 MG TAB PO SCH (05:51)
[2022-07-25] MEDS: AMIODARONE 200 MG TAB PO SCH (05:51)
[2022-07-25] MEDS: SODIUM BICARBONATE TAB 650 MG TAB PO SCH (05:51)
[2022-07-25] MEDS ORDERED: amLODIPine 2.5 MG TAB PO SCH (06:00)
[2022-07-25] MEDS ORDERED: NON FORMULARY DRUG (Roflumilast [Daliresp] 500 MCG Tablet) PO SCH (06:00)
[2022-07-25 07:22] LABS: Glucose,Whole Blood 58 mg/dL (70-110)
[2022-07-25 07:54] LABS: Glucose,Whole Blood 72 mg/dL (70-110)
[2022-07-25] MEDS: INSULIN ASPART (NovoLOG) 100 UNIT/ML VIAL SQ SCH (08:00)
[2022-07-25] MEDS: APIXABAN 2.5 MG TABLET PO SCH (08:35)
[2022-07-25] MEDS: AZITHROMYCIN 500 MG TAB PO SCH (08:35)
[2022-07-25 11:53] LABS: Glucose,Whole Blood 279 mg/dL (70-110)
--- NOTE | 2022-07-25 16:40 | P.DS ---
Providers Date of admission: 07/23/22 23:03 Expected date of discharge: 07/25/22 Attending physician: Daren Coe MD Primary care physician: Cedrick Ruiz MD Hospital Course: Acute on chronic hypoxic respiratory failure v Urinary tract infection Community-acquired pneumonia Diabetes mellitus COPD on home oxygen Obstructive sleep apnea on CPAP Atrial fibrillation on blood thinners CKD stable 81-year-old female with diabetes mellitus, obstructive sleep apnea, COPD, A. fib on blood thinners presented with hematuria. Workup in the ED showed mild anemia , no leukocytosis. Chest x-ray showed increased density in the left lower lobe. Urinalysis was positive. Patient admitted for treatment of UTI and pneumonia. By day 2 of hospitalization patient was doing well with abx, and back to her home baseline oxygen requirement. She was discharged home with instructions to f/u with PCP and nephrology. Also prescribed additional 5 days of abx to complete 7 day course. I spent 34 min coordinating this discharge, d/c date 07/25. Gen: awake, alert HEENT: normocephalic, atraumatic, good hearing acuity, moist mucous membranes Resp: good air exchange, breathing comfortably with no accessory muscle use CVS: good distal perfusion x 4, GI: soft, NTTP, ND : no SPT, no CVAT, lopez catheter not present MSK: + pitting edema, no clubbing Neuro: non-focal, moving all extremities Psych: cooperative, euthymic mood Patient Condition at Discharge: Good Plan - Discharge Summary Discharge Rx Participant: No New Discharge Prescriptions: New Acetaminophen Tab [Tylenol] 650 mg PO Q6HR PRN tab PRN Reason: Mild Pain Or Fever > 100.5 Azithromycin [Zithromax] 500 mg PO DAILY #3 tab Cefdinir [Omnicef] 300 mg PO Q12HR #10 capsule Continue Atorvastatin [Lipitor] 20 mg PO HS@1900 Montelukast [Singulair] 10 mg PO HS@1900 Vit C/E/Zn/Coppr/Lutein/Zeaxan [Preservision Areds 2 Softgel] 1 cap PO BID@0600,1900 Latanoprost Ophth [Xalatan 0.005%] 1 drop BOTH EYES HS@1900 Cetirizine HCl [Zyrtec] 10 mg PO HS@1900 Cyanocobalamin [Vitamin B-12] 1,000 mcg PO DAILY@0600 Apixaban [Eliquis] 2.5 mg PO BID@0800,2000 Roflumilast [Daliresp] 500 mcg PO DAILY@0600 Cholecalciferol [Vitamin D3 (25 Mcg = 1000 Iu)] 25 mcg PO DAILY@0600 Ascorbic Acid [Vitamin C] 1,000 mg PO DAILY@0600 Sodium Bicarbonate Tab 650 mg PO BID@0600,1900 Clotrimazole/Betameth Cream [Lotrisone] 1 applic TOPICAL BID PRN PRN Reason: Rash Metoprolol Tartrate [Lopressor] 75 mg PO TID@0600,1400,1900 Furosemide [Lasix] 40 mg PO DAILY@0600 Clotrimazole/Betameth Cream [Lotrisone] 1 applic TOPICAL BID@0600,1900 Ipratropium [place] 0.06%Nasal [Atrovent Nasal 0.06%] 1 - 2 spray EA NOSTRIL TID PRN PRN Reason: Allergy Symptoms Melatonin 3 mg PO HS PRN PRN Reason: SLEEP Insulin Glargine,Hum.rec.anlog [Toujeo Solostar] 46 units SQ HS@1900 Insulin Lispro [humaLOG Kwikpen] See Protocol SQ AC-TID@06,1100,1600 Azelastine HCl 1 spray EA NOSTRIL BID@0600,1800 PRN PRN Reason: DRAINAGE amLODIPine [Norvasc] 2.5 mg PO DAILY@0600 Sertraline [Zoloft] 50 mg PO TID@0600,1400,1900 ALPRAZolam [Xanax] 0.25 mg PO DAILY PRN PRN Reason: Anxiety Ipratropium-Albuterol Nebulize [Duoneb 0.5 mg-3 mg/3 ml Soln] 3 ml INHALATION RT-TID@,, Melatonin 3 mg PO HS@1900 Amiodarone [Cordarone] 200 mg PO BID@0600,1900 Mupirocin 2% Oint [Bactroban 2% Oint] 1 applic NASAL BID PRN PRN Reason: DIRECTED Gabapentin 300 mg PO HS@1900 Discharge Medication List Atorvastatin [Lipitor] 20 mg PO HS@1900 07/15/14 [History] Apixaban [Eliquis] 2.5 mg PO BID@0800,199901/28/21 [History] Cetirizine HCl [Zyrtec] 10 mg PO HS@189901/28/21 [History] Cyanocobalamin [Vitamin B-12] 1,000 mcg PO DAILY@0601/28/21 [History] Latanoprost Ophth [Xalatan 0.005%] 1 drop BOTH EYES HS@189901/28/21 [History] Montelukast [Singulair] 10 mg PO HS@189901/28/21 [History] Roflumilast [Daliresp] 500 mcg PO DAILY@0601/28/21 [History] Vit C/E/Zn/Coppr/Lutein/Zeaxan [Preservision Areds 2 Softgel] 1 cap PO BID@0600,189901/28/21 [History] Cholecalciferol [Vitamin D3 (25 Mcg = 1000 Iu)] 25 mcg PO DAILY@0602/06/21 [History] ALPRAZolam [Xanax] 0.25 mg PO DAILY PRN 09/03/21 [History] Ascorbic Acid [Vitamin C] 1,000 mg PO DAILY@0609/03/21 [History] Ipratropium-Albuterol Nebulize [Duoneb 0.5 mg-3 mg/3 ml Soln] 3 ml INHALATION RT-TID@06,,09/03/21 [History] Sertraline [Zoloft] 50 mg PO TID@0600,1400,189909/03/21 [History] Sodium Bicarbonate Tab 650 mg PO BID@0600,189909/03/21 [History] Amiodarone [Cordarone] 200 mg PO BID@0600,189910/18/21 [History] Clotrimazole/Betameth Cream [Lotrisone] 1 applic TOPICAL BID PRN 10/18/21 [History] Furosemide [Lasix] 40 mg PO DAILY@0610/18/21 [History] Melatonin 3 mg PO HS@189910/18/21 [History] Metoprolol Tartrate [Lopressor] 75 mg PO TID@0600,1400,189910/18/21 [History] Azelastine HCl 1 spray EA NOSTRIL BID@0600,1800 PRN 07/23/22 [History] Clotrimazole/Betameth Cream [Lotrisone] 1 applic TOPICAL BID@0600,1900 07/23/22 [History] Gabapentin 300 mg PO HS@19007/23/22 [History] Insulin Glargine,Hum.rec.anlog [Tracie Hinojosa] 46 units SQ HS@19007/23/22 [History] Insulin Lispro [humaLOG Kwikpen] See Protocol SQ AC-TID@06,1100,1600 07/23/22 [History] Ipratropium [place] 0.06%Nasal [Atrovent Nasal 0.06%] 1 - 2 spray EA NOSTRIL TID PRN 07/23/22 [History] Melatonin 3 mg PO HS PRN 07/23/22 [History] Mupirocin 2% Oint [Bactroban 2% Oint] 1 applic NASAL BID PRN 07/23/22 [History] amLODIPine [Norvasc] 2.5 mg PO DAILY@0600 07/23/22 [History] Acetaminophen Tab [Tylenol] 650 mg PO Q6HR PRN tab 07/25/22 [Rx] Azithromycin [Zithromax] 500 mg PO DAILY #3 tab 07/25/22 [Rx] Cefdinir [Omnicef] 300 mg PO Q12HR #10 capsule 07/25/22 [Rx] Follow up Appointment(s)/Referral(s): Cedrick Ruiz MD [Primary Care Provider] - 1-2 days (offices closed on weekend at time of disharge.) [facility] [NON[facility] - 1-2 Days (offices closed on weekend at time of disharge.) Patient Instructions/Handouts: Viral Pneumonia (DC), Urinary Tract Infection in Women (DC), Type 2 Diabetes in Adults: New Diagnosis (DC), Chronic Wounds (DC) Discharge Disposition: TRANSFER TO SNF/ECF
== END 2022-07-25 12:25 | disposition home health service (06) | DRG 193 ==
LOC: EC 19:14 → 4SSUR 23:03 → 5NMEDONC 07-24 03:37
PROVIDERS: ADMIT Internal Medicine; ATTEND Internal Medicine
DX: J18.9 Pneumonia, unspecified organism (principal); J96.21 Acute and chronic respiratory failure with hypoxia; J44.0 Chronic obstructive pulmonary disease with (acute) lower respiratory infection; N39.0 Urinary tract infection, site not specified; E11.22 Type 2 diabetes mellitus with diabetic chronic kidney disease; I48.91 Unspecified atrial fibrillation; Z79.4 Long term (current) use of insulin; Z20.822 Contact with and (suspected) exposure to COVID-19; D63.1 Anemia in chronic kidney disease; I12.9 Hypertensive chronic kidney disease with stage 1 through stage 4 chronic kidney disease, or unspecified chronic kidney disease; N18.9 Chronic kidney disease, unspecified; R32 Unspecified urinary incontinence; E78.5 Hyperlipidemia, unspecified; G47.33 Obstructive sleep apnea (adult) (pediatric); F32.A Depression, unspecified; H35.30 Unspecified macular degeneration; M48.00 Spinal stenosis, site unspecified; Z99.81 Dependence on supplemental oxygen; Z79.01 Long term (current) use of anticoagulants; Z79.899 Other long term (current) drug therapy; Z87.891 Personal history of nicotine dependence; Z85.3 Personal history of malignant neoplasm of breast; Z90.49 Acquired absence of other specified parts of digestive tract; Z87.442 Personal history of urinary calculi; Z88.6 Allergy status to analgesic agent; Z91.048 Other nonmedicinal substance allergy status
CPT/HCPCS: 36415; 71046; 80053; 83735; 83880; 84484; 85025; 85610; 85730; 87077; 87086; 87186; 87635; 93005; 96365; 99285

== ENCOUNTER → 2022-08-12 | Outpatient (CLI) | payer MEDICARE, BC ==
[2022-08-12 18:16] LABS: HCT 36.4 % (37.2-46.3); MCH 29.4 pg (27.0-32.0); MCHC 30.2 g/dL (32.0-37.0); MCV 97.3 fL (80.0-97.0); Mean Platelet Volume 10.1 fL (9.5-12.2); NRBC Per 100 WBC 0 /100 WBCS (0.0-0.0); Platelet Count 320 X 10*3/uL (140-440); RBC 3.74 X 10*6/uL (4.10-5.20); RDW 16.8 % (11.5-14.5); WBC 12.27 X 10*3/uL (4.50-10.00)
[2022-08-12 18:22] LABS: % Iron Saturation 14.55 (12.00-45.00); African American GFR (CKD) 26.7 (60.0-200.0); Albumin 3.4 g/dL (3.8-4.9); Albumin/Globulin Ratio 0.76 (1.60-3.17); Anion Gap 13.4 mmol/L (10.00-18.00); BUN/Creat Ratio 22.6 Ratio (12.00-20.00); Blood Urea Nitrogen 45.2 mg/dL (9.0-27.0); Calcium 9.4 mg/dL (8.7-10.3); Carbon Dioxide 29.7 mmol/L (20.0-27.5); Globulin 4.5 g/dL (1.6-3.3); Magnesium 2.1 mg/dL (1.5-2.4); Phosphorus 4.4 mg/dL (2.4-5.1); Potassium 4.3 mmol/L (3.5-5.5); Total Bilirubin 0.3 mg/dL (0.30-1.20); Total Protein 7.9 g/dL (6.2-8.2); Uric Acid 6.6 mg/dL (2.9-7.7)
[2022-08-12 19:32] LABS: Appearance,Urine Cloudy (Clear); Bilirubin,Urine Negative (Negative); Blood,Urine Negative (Negative); Color,Urine Yellow (Yellow); Ketones,Urine Negative (Negative); Nitrite,Urine Negative (Negative); PH, Urine 5.5 (5.0-8.0); Specific Gravity,Urine 1.013 (1.001-1.030); Urobilinogen,Urine 0.2 (0.2,1.0)
[2022-08-12 21:29] LABS: Amorphous Sediment,Urine Present /LPF (None Seen); Bacteria,Urine 3+ /HPF (None Seen)
[2022-08-12 23:16] LABS: Hepatitis A Antibody IgM Nonreactive (Nonreactive); Hepatitis B Core IgM Nonreactive (Nonreactive); Hepatitis B Surface Antigen Nonreactive (Nonreactive); Hepatitis C IgG Antibody Nonreactive (Nonreactive)
[2022-08-13 00:07] LABS: Urine Creatinine 45.7 mg/dL (28.0-217.0)
[2022-08-13 14:05] LABS: C-ANCA <1:20 Titer (<1:20)
== END | disposition home or self-care (01) ==
LOC: LABWHC1 11:55
PROVIDERS: ATTEND Nurse Practitioner Family
DX: N18.32 Chronic kidney disease, stage 3b (principal)
CPT/HCPCS: 36415; 80053; 80074; 81001; 82043; 82306; 82570; 82728; 83516; 83540; 83550; 83735; 83883; 83970; 84100; 84550; 85027; 86038; 86160; 86162; 86225; 86255; 86334

== ENCOUNTER 2022-10-04 09:19 | Emergency (ER) | payer MEDICARE, BC ==
[2022-10-04] MEDS ORDERED: HYDROcodone/APAP 5-325MG 1 EACH TAB PO STA (09:43)
--- NOTE | 2022-10-04 09:45 | ED ---
Back Pain HPI - General Chief Complaint: Back Pain/Injury Stated Complaint: Back pain Time Seen by Provider: 10/04/22 09:23 Source: patient, RN notes reviewed Limitations: no limitations - History of Present Illness Initial Comments: Patient is an 81 year old female presenting to the ER with a complaint of low back pain. She reports she is diagnosed with spinal stenosis years ago. She states her low back pain is constant, but made worse when laying flat and improves slightly with sitting up. Pt states "no position is comfortable." Last night, she took Tylenol with no relief. Per pt, her PCP will not prescribe her anything for her pain. She admits to lower extremity numbness and tingling but has no limited ROM. Denies incontinence or saddle parasthesias. Denies recent fa lls or injuries. - Related Data Home Medications Medication Instructions Recorded Confirmed Atorvastatin [Lipitor] 20 mg PO HS@19007/15/14 07/23/22 Apixaban [Eliquis] 2.5 mg PO BID@799,199901/28/21 07/23/22 Cetirizine HCl [Zyrtec] 10 mg PO HS@1900 01/28/21 07/23/22 Cyanocobalamin [Vitamin B-12] 1,000 mcg PO DAILY@0601/28/21 07/23/22 Latanoprost Ophth [Xalatan 0.005%] 1 drop BOTH EYES HS@189901/28/21 07/23/22 Montelukast [Singulair] 10 mg PO HS@1900 01/28/21 07/23/22 Roflumilast [Daliresp] 500 mcg PO DAILY@0601/28/21 07/23/22 Vit C/E/Zn/Coppr/Lutein/Zeaxan 1 cap PO BID@0600,1900 01/28/21 07/23/22 [Preservision Areds 2 Softgel] Cholecalciferol [Vitamin D3 (25 25 mcg PO DAILY@0600 02/06/21 07/23/22 Mcg = 1000 Iu)] ALPRAZolam [Xanax] 0.25 mg PO DAILY PRN 09/03/21 07/23/22 Ascorbic Acid [Vitamin C] 1,000 mg PO DAILY@0600 09/03/21 07/23/22 Ipratropium-Albuterol Nebulize 3 ml INHALATION RT-TID@06,14,19 09/03/21 07/23/22 [Duoneb 0.5 mg-3 mg/3 ml Soln] Sertraline [Zoloft] 50 mg PO TID@0600,1400,1900 09/03/21 07/23/22 Sodium Bicarbonate Tab 650 mg PO BID@0600,1900 09/03/21 07/23/22 Amiodarone [Cordarone] 200 mg PO BID@0600,19010/18/21 07/23/22 Clotrimazole/Betameth Cream 1 applic TOPICAL BID PRN 10/18/21 07/23/22 [Lotrisone] Furosemide [Lasix] 40 mg PO DAILY@0600 10/18/21 07/23/22 Melatonin 3 mg PO HS@189910/18/21 07/23/22 Metoprolol Tartrate [Lopressor] 75 mg PO TID@0600,1400,189910/18/21 07/23/22 Azelastine HCl 1 spray EA NOSTRIL BID@0600,1800 07/23/22 07/23/22 PRN Clotrimazole/Betameth Cream 1 applic TOPICAL BID@0600,189907/23/22 07/23/22 [Lotrisone] Gabapentin 300 mg PO HS@189907/23/22 07/23/22 Insulin Glargine,Hum.rec.anlog 46 units SQ HS@189907/23/22 07/23/22 [Toujeo Solostar] Insulin Lispro [humaLOG Kwikpen] See Protocol SQ AC-TID@06,1100,1600 07/23/22 07/23/22 Ipratropium [place] 0.06%Nasal 1 - 2 spray EA NOSTRIL TID PRN 07/23/22 07/23/22 [Atrovent Nasal 0.06%] Melatonin 3 mg PO HS PRN 07/23/22 07/23/22 Mupirocin 2% Oint [Bactroban 2% 1 applic NASAL BID PRN 07/23/22 07/23/22 Oint] amLODIPine [Norvasc] 2.5 mg PO DAILY@0600 07/23/22 07/23/22 Previous Rx's Medication Instructions Recorded Acetaminophen Tab [Tylenol] 650 mg PO Q6HR PRN tab 07/25/22 Azithromycin [Zithromax] 500 mg PO DAILY #3 tab 07/25/22 Cefdinir [Omnicef] 300 mg PO Q12HR #10 capsule 07/25/22 HYDROcodone/APAP 7.5-325MG [[place] 1 tab PO Q6HR PRN 3 Days #12 tab 10/04/22 7.5-325] Allergies Allergy/AdvReac Type Severity Reaction Status Date / Time diclofenac sodium Allergy Unknown Verified 10/04/22 09:25 [From Voltaren] adhesive tape AdvReac Rash/Hives Verified 10/04/22 09:25 Review of Systems ROS Statement: Those systems with pertinent positive or pertinent negative responses have been documented in the HPI. ROS Other: All systems not noted in ROS Statement are negative. Past Medical History Past Medical History: Atrial Fibrillation, Cancer, Heart Failure, COPD, Diabetes Mellitus, Eye Disorder, Hyperlipidemia, Hypertension, Osteoarthritis (OA), Pneumonia, Renal Disease, Seizure Disorder, Sleep Apnea/CPAP/BIPAP Additional Past Medical History / Comment(s): IDDM type II, neuropathy bilateral feet, past hematuria, CKD stage III, nephrolithiasis, chronic respiratory failure/home oxygen 3L/NC ATC, bronchitis, R breast cancer x2 with lumpectomies/radiation, RACHEL/cpap used, spinal stenosis/chronic back pain, IBS, seizure x2 as a teen and one in 2009, bilateral macular degeneration/very poor vision, current wound R lower leg/skin tear and is seen at [facility]/home nurse, [place] History of Any Multi-Drug Resistant Organisms: MRSA, VRE Date of last positivie culture/infection: 10/02/21 09/13/21 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 Past Anesthesia/Blood Transfusion Reactions: No Reported Reaction, Motion Sickness Past Psychological History: Anxiety, Depression Smoking Status: Former smoker Past Alcohol Use History: None Reported Past Drug Use History: None Reported - Past Family History Mother Additional Family Medical History / Comment(s): breast ca Father Family Medical History: Cancer Additional Family Medical History / Comment(s): Prostate cancer. General Exam Limitations: no limitations General appearance: alert, in no apparent distress Head exam: Present: atraumatic, normocephalic, normal inspection Eye exam: Present: normal appearance, PERRL, EOMI. Absent: scleral icterus, conjunctival injection, periorbital swelling ENT exam: Present: normal exam, mucous membranes moist Respiratory exam: Present: normal lung sounds bilaterally, other (on 2L NC). Absent: respiratory distress, wheezes, rales, rhonchi, stridor Cardiovascular Exam: Present: irregular rhythm GI/Abdominal exam: Present: soft, normal bowel sounds. Absent: distended, tenderness, guarding, rebound, rigid Extremities exam: Present: normal inspection, full ROM, normal capillary refill. Absent: tenderness, pedal edema, joint swelling, calf tenderness Back exam: Present: normal inspection Neurological exam: Present: alert, oriented X3, CN II-XII intact Psychiatric exam: Present: normal affect, normal mood Skin exam: Present: warm, dry, intact, normal color. Absent: rash Course Vital Signs 10/04/22 09:21 Temperature 98.5 F Pulse Rate 72 Respiratory 16 Rate Blood Pressure 157/87 O2 Sat by Pulse 98 Oximetry Medical Decision Making - Medical Decision Making 81-year-old presented for low back pain. Patient has no red flag symptoms. This is an ongoing issue x-ray is obtained which does not reveal acute findings for his chronic degenerative changes. Patient will be provided short course pain meds follow-up with her PCP and return parameters were discussed. Disposition Clinical Impression: Lumbar back pain Disposition: HOME SELF-CARE Condition: Stable Instructions (If sedation given, give patient instructions): Acute Low Back Pain (ED) Additional Instructions: Please return to the Emergency Department if symptoms worsen or any other concerns. Prescriptions: HYDROcodone/APAP 7.5-325MG [[place] 7.5-325] 1 tab PO Q6HR PRN 3 Days #12 tab PRN Reason: pain Is patient prescribed a controlled substance at d/c from ED?: Yes When asked, does pt state using other controlled substances?: No If prescribed controlled substance>3 days was MAPS reviewed?: Prescribed <3 Days If opioid is for acute pain is fill amount 7 days or less?: Yes If Rx opioid, was Start Talking consent form obtained?: Yes Referrals: None,Stated [Primary Care Provider] - 1-2 days Emmy Restrepo DO [Doctor of Osteopathic Medicine] - 1-2 days Time of Disposition: 11:12
--- NOTE | 2022-10-04 10:45 | XR ---
EXAMINATION TYPE: XR lumbar spine 2 or 3V DATE OF EXAM: 10/04/2022 10:14 AM INDICATION: Patient age:Female; 81 years old; Reason for study: pain; COMPARISON: 07/15/2014 TECHNIQUE: Frontal, lateral and coned in L5-S1 lateral views of the spine. FINDINGS: No evidence of any acute osseous pathology. No evidence of loss of vertebral body height i s seen. There is normal alignment of the lumbar vertebral bodies. Mild scattered disc space narrowing . Multilevel marginal osteophyte formation throughout the visualized spine. There is facet joint arth ropathy throughout the spine. Scattered at least mild neural foraminal stenosis. Atherosclerosis of t he arterial vasculature. IMPRESSION: 1. No acute fracture. 2. Mild multilevel disc degeneration.
[2022-10-04] MEDS ORDERED: ACET/COD 300 MG/30 MG STARTER PACK 6 TAB BTL PO STA (11:29)
[2022-10-04 12:22] VITALS: BP 139/78; PULSE 84; RESP 18; TEMP 98.2
== END 2022-10-04 12:27 | disposition home or self-care (01) ==
LOC: EC 09:19
DX: M54.50 Low back pain, unspecified (principal); I48.91 Unspecified atrial fibrillation; I50.9 Heart failure, unspecified; J44.9 Chronic obstructive pulmonary disease, unspecified; E11.9 Type 2 diabetes mellitus without complications; E78.5 Hyperlipidemia, unspecified; I10 Essential (primary) hypertension; M19.90 Unspecified osteoarthritis, unspecified site; G47.30 Sleep apnea, unspecified; F41.9 Anxiety disorder, unspecified; F32.A Depression, unspecified; Z87.891 Personal history of nicotine dependence; Z79.02 Long term (current) use of antithrombotics/antiplatelets; Z79.84 Long term (current) use of oral hypoglycemic drugs; Z79.51 Long term (current) use of inhaled steroids; Z79.899 Other long term (current) drug therapy; Z79.83 Long term (current) use of bisphosphonates; Z88.6 Allergy status to analgesic agent
CPT/HCPCS: 72100; 99284

== ENCOUNTER 2022-11-02 13:17 | Emergency (ER) | payer MEDICARE, BC ==
--- NOTE | 2022-11-02 13:28 | ED ---
General Adult HPI - General Source: patient, EMS Mode of arrival: EMS Limitations: no limitations <Cortez Hoffman - Last Filed: 11/02/22 14:50> <Jarrod Fierro - Last Filed: 11/02/22 16:43> - General Stated complaint: Covid+, Vomiting Time Seen by Provider: 11/02/22 13:18 - History of Present Illness Initial comments: This an 81-year-old female presents emergency department via EMS chief complaint nausea vomiting, shortness breath. Patient does have underlying COPD is normally on oxygen 3 L. Patient does report neurologist Dr. Portillo. Patient states that she's been sick for last 3 days tested positive for COVID-19 at home. Patient states that she's had subjective ears and chills. Patient did receive for Zofran by EMS which helped her nausea. Patient denies any leg pain or leg swelling. Denies any localized abdominal pain states that her skin hurts she just more achy than anything. (Cortez Hoffman) - Related Data Home Medications Medication Instructions Recorded Confirmed Atorvastatin [Lipitor] 20 mg PO HS@1900 07/15/14 07/23/22 Apixaban [Eliquis] 2.5 mg PO BID@0800,199901/28/21 07/23/22 Cetirizine HCl [Zyrtec] 10 mg PO HS@1900 01/28/21 07/23/22 Cyanocobalamin [Vitamin B-12] 1,000 mcg PO DAILY@0600 01/28/21 07/23/22 Latanoprost Ophth [Xalatan 0.005%] 1 drop BOTH EYES HS@1900 01/28/21 07/23/22 Montelukast [Singulair] 10 mg PO HS@1900 01/28/21 07/23/22 Roflumilast [Daliresp] 500 mcg PO DAILY@0600 01/28/21 07/23/22 Vit C/E/Zn/Coppr/Lutein/Zeaxan 1 cap PO BID@0600,1900 01/28/21 07/23/22 [Preservision Areds 2 Softgel] Cholecalciferol [Vitamin D3 (25 25 mcg PO DAILY@0600 02/06/21 07/23/22 Mcg = 1000 Iu)] ALPRAZolam [Xanax] 0.25 mg PO DAILY PRN 09/03/21 07/23/22 Ascorbic Acid [Vitamin C] 1,000 mg PO DAILY@0600 09/03/21 07/23/22 Ipratropium-Albuterol Nebulize 3 ml INHALATION RT-TID@06,14,19 09/03/21 07/23/22 [Duoneb 0.5 mg-3 mg/3 ml Soln] Sertraline [Zoloft] 50 mg PO TID@0600,1400,1900 09/03/21 07/23/22 Sodium Bicarbonate Tab 650 mg PO BID@0600,1900 09/03/21 07/23/22 Amiodarone [Cordarone] 200 mg PO BID@0600,189910/18/21 07/23/22 Clotrimazole/Betameth Cream 1 applic TOPICAL BID PRN 10/18/21 07/23/22 [Lotrisone] Furosemide [Lasix] 40 mg PO DAILY@0600 10/18/21 07/23/22 Melatonin 3 mg PO HS@189910/18/21 07/23/22 Metoprolol Tartrate [Lopressor] 75 mg PO TID@0600,1400,189910/18/21 07/23/22 Azelastine HCl 1 spray EA NOSTRIL BID@0600,1800 07/23/22 07/23/22 PRN Clotrimazole/Betameth Cream 1 applic TOPICAL BID@0600,189907/23/22 07/23/22 [Lotrisone] Gabapentin 300 mg PO HS@189907/23/22 07/23/22 Insulin Glargine,Hum.rec.anlog 46 units SQ HS@189907/23/22 07/23/22 [Toujeo Solostar] Insulin Lispro [humaLOG Kwikpen] See Protocol SQ AC-TID@06,1100,1600 07/23/22 07/23/22 Ipratropium Burchard 0.06%Nasal 1 - 2 spray EA NOSTRIL TID PRN 07/23/22 07/23/22 [Atrovent Nasal 0.06%] Melatonin 3 mg PO HS PRN 07/23/22 07/23/22 Mupirocin 2% Oint [Bactroban 2% 1 applic NASAL BID PRN 07/23/22 07/23/22 Oint] amLODIPine [Norvasc] 2.5 mg PO DAILY@0600 07/23/22 07/23/22 Previous Rx's Medication Instructions Recorded Acetaminophen Tab [Tylenol] 650 mg PO Q6HR PRN tab 07/25/22 Azithromycin [Zithromax] 500 mg PO DAILY #3 tab 07/25/22 Cefdinir [Omnicef] 300 mg PO Q12HR #10 capsule 07/25/22 HYDROcodone/APAP 7.5-325MG [Bristol 1 tab PO Q6HR PRN 3 Days #12 tab 10/04/22 7.5-325] Molnupiravir [Lagevrio (Eua)] 800 mg PO BID 5 Days #40 cap 11/02/22 Allergies Allergy/AdvReac Type Severity Reaction Status Date / Time diclofenac sodium Allergy Unknown Verified 10/04/22 09:25 [From [facility]] adhesive tape AdvReac Rash/Hives Verified 10/04/22 09:25 Review of Systems ROS Other: All systems not noted in ROS Statement are negative. <Cortez Hoffman - Last Filed: 11/02/22 14:50> ROS Other: All systems not noted in ROS Statement are negative. <Jarrod Fierro - Last Filed: 11/02/22 16:43> ROS Statement: Those systems with pertinent positive or pertinent negative responses have been documented in the HPI. Past Medical History Past Medical History: Atrial Fibrillation, Cancer, Heart Failure, COPD, Diabetes Mellitus, Eye Disorder, Hyperlipidemia, Hypertension, Osteoarthritis (OA), Pneumonia, Renal Disease, Seizure Disorder, Sleep Apnea/CPAP/BIPAP Additional Past Medical History / Comment(s): IDDM type II, neuropathy bilateral feet, past hematuria, CKD stage III, nephrolithiasis, chronic respiratory failure/home oxygen 3L/[place] ATC, bronchitis, R breast cancer x2 with lumpectomies/radiation, RACHEL/cpap used, spinal stenosis/chronic back pain, IBS, seizure x2 as a teen and one in 2010, bilateral macular degeneration/very poor vision, current wound R lower leg/skin tear and is seen at [facility]/home nurse, [place] History of Any Multi-Drug Resistant Organisms: MRSA, VRE Date of last positivie culture/infection: 10/02/21 09/13/21 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 Past Anesthesia/Blood Transfusion Reactions: No Reported Reaction, Motion Sickness Past Psychological History: Anxiety, Depression Smoking Status: Former smoker Past Alcohol Use History: None Reported Past Drug Use History: None Reported - Past Family History Mother Additional Family Medical History / Comment(s): breast ca Father Family Medical History: Cancer Additional Family Medical History / Comment(s): Prostate cancer. <Cortez Hoffman M - Last Filed: 11/02/22 14:50> General Exam Limitations: no limitations General appearance: alert, in no apparent distress Head exam: Present: atraumatic, normocephalic, normal inspection Eye exam: Present: normal appearance, PERRL, EOMI. Absent: scleral icterus, conjunctival injection, periorbital swelling ENT exam: Present: normal exam, normal oropharynx, mucous membranes moist Neck exam: Present: normal inspection, full ROM. Absent: tenderness, m eningismus, lymphadenopathy Respiratory exam: Present: decreased breath sounds. Absent: normal lung sounds bilaterally, respiratory distress, wheezes, rales, rhonchi, stridor Cardiovascular Exam: Present: regular rate, normal rhythm, normal heart sounds. Absent: systolic murmur, diastolic murmur, rubs, gallop, clicks GI/Abdominal exam: Present: soft, normal bowel sounds. Absent: distended, tenderness, guarding, rebound, rigid <Cortez Hoffman M - Last Filed: 11/02/22 14:50> Course Vital Signs 11/02/22 11/02/22 13:29 15:07 Temperature 99.4 F Pulse Rate 92 68 Respiratory 20 20 Rate Blood Pressure 145/91 147/86 O2 Sat by Pulse 100 Oximetry EKG Findings - EKG Comments: EKG Findings:: EKG performed at 13:30 for A. fib rate of 81 QRS 102 QT/QTC 341/379 - EKG Results: EKG: interpreted by SHAKEELD <Cortez Hoffman - Last Filed: 11/02/22 14:50> Medical Decision Making - Lab Data Result diagrams: 11/02/22 13:45 11/02/22 13:45 <Cortez Hoffman - Last Filed: 11/02/22 14:50> - Lab Data Result diagrams: 11/02/22 13:45 11/02/22 13:45 <Jarrod Fierro - Last Filed: 11/02/22 16:43> - Medical Decision Making Care was signed out to me by previous shift physician fleet administrative assistant, Cortez Hoffman. Patient has been suffering from URI symptoms for the last 1-2 days. She tested positive for COVID-19 today. Patient had blood work drawn and was found to have a mild hepatitis with AST measured 506 and ALT of 382 with alk phos of 199. Prior to sign out patient or he had liver ultrasound showed findings concerning of hepatocellular disease. Patient reevaluated at bedside at 3:55 PM found to be stable medical condition. She denies any nausea. Denies any right upper quadrant pain. At this point is unclear what is causing this mild case of hepatitis. She states that she does not drink or had any changes to her medications recently. Was discussed with Dr. Ring who is aware of patient's abnormal laboratory results. She is willing to see the patient in the clinic for follow-up. Patient given prescription for antiviral for COVID-19. return Precautions discussed. patient discharged (Jarrod Fierro) - Lab Data Lab Results 11/02/22 11/02/22 11/02/22 Range/Units 13:45 13:45 13:45 WBC 8.8 (3.8-10.6) k/uL RBC 4.12 (3.80-5.40) m/uL Hgb 12.5 (11.4-16.0) gm/dL Hct 38.3 (34.0-46.0) % MCV 92.9 (80.0-100.0) fL MCH 30.3 (25.0-35.0) pg MCHC 32.6 (31.0-37.0) g/dL RDW 15.4 (11.5-15.5) % Plt Count 151 (150-450) k/uL MPV 8.1 Neutrophils % 84 % Lymphocytes % 9 % Monocytes % 4 % Eosinophils % 1 % Basophils % 1 % Neutrophils # 7.4 (1.3-7.7) k/uL Lymphocytes # 0.8 L (1.0-4.8) k/uL Monocytes # 0.4 (0-1.0) k/uL Eosinophils # 0.1 (0-0.7) k/uL Basophils # 0.1 (0-0.2) k/uL PT 10.8 (9.0-12.0) sec INR 1.0 (<1.2) APTT 25.7 (22.0-30.0) sec Sodium 137 (137-145) mmol/L Potassium 3.9 (3.5-5.1) mmol/L Chloride 102 (98-107) mmol/L Carbon Dioxide 25 (22-30) mmol/L Anion Gap 10 mmol/L BUN 45 H (7-17) mg/dL Creatinine 1.78 H (0.52-1.04) mg/dL Est GFR (CKD-EPI)AfAm 31 (>60 ml/min/1.73 sqM) Est GFR (CKD-EPI)NonAf 27 (>60 ml/min/1.73 sqM) Glucose 280 H (74-99) mg/dL Plasma Lactic Acid Hema (0.7-2.0) mmol/L Calcium 8.3 L (8.4-10.2) mg/dL Magnesium 1.7 (1.6-2.3) mg/dL Total Bilirubin 0.3 (0.2-1.3) mg/dL AST 506 H (14-36) U/L ALT 382 H (4-34) U/L Alkaline Phosphatase 199 H (38-126) U/L NT-Pro-B Natriuret Pep pg/mL Total Protein 6.7 (6.3-8.2) g/dL Albumin 3.5 (3.5-5.0) g/dL Acetaminophen ug/mL 11/02/22 11/02/22 11/02/22 Range/Units 13:45 13:45 15:03 WBC (3.8-10.6) k/uL RBC (3.80-5.40) m/uL Hgb (11.4-16.0) gm/dL Hct (34.0-46.0) % MCV (80.0-100.0) fL MCH (25.0-35.0) pg MCHC (31.0-37.0) g/dL RDW (11.5-15.5) % Plt Count (150-450) k/uL MPV Neutrophils % % Lymphocytes % % Monocytes % % Eosinophils % % Basophils % % Neutrophils # (1.3-7.7) k/uL Lymphocytes # (1.0-4.8) k/uL Monocytes # (0-1.0) k/uL Eosinophils # (0-0.7) k/uL Basophils # (0-0.2) k/uL PT (9.0-12.0) sec INR (<1.2) APTT (22.0-30.0) sec Sodium (137-145) mmol/L Potassium (3.5-5.1) mmol/L Chloride (98-107) mmol/L Carbon Dioxide (22-30) mmol/L Anion Gap mmol/L BUN (7-17) mg/dL Creatinine (0.52-1.04) mg/dL Est GFR (CKD-EPI)AfAm (>60 ml/min/1.73 sqM) Est GFR (CKD-EPI)NonAf (>60 ml/min/1.73 sqM) Glucose (74-99) mg/dL Plasma Lactic Acid Hema 1.5 (0.7-2.0) mmol/L Calcium (8.4-10.2) mg/dL Magnesium (1.6-2.3) mg/dL Total Bilirubin (0.2-1.3) mg/dL AST (14-36) U/L ALT (4-34) U/L Alkaline Phosphatase (38-126) U/L NT-Pro-B Natriuret Pep 3480 pg/mL Total Protein (6.3-8.2) g/dL Albumin (3.5-5.0) g/dL Acetaminophen <10.0 ug/mL Disposition <Cortez Hoffman - Last Filed: 11/02/22 14:50> Is patient prescribed a controlled substance at d/c from ED?: No Time of Disposition: 16:43 <Jarrod Fierro - Last Filed: 11/02/22 16:43> Clinical Impression: Coronavirus infection, Hepatitis Disposition: HOME SELF-CARE Condition: Fair Instructions (If sedation given, give patient instructions): Coronavirus Disease 2019 (COVID-19) Additional Instructions: Follow-up with her primary care doctor regarding elevated liver enzymes Prescriptions: Molnupiravir [Lagevrio (Eua)] 800 mg PO BID 5 Days #40 cap Referrals: Stu Ring MD [Primary Care Provider] - 1-2 days
[2022-11-02 13:58] LABS: Basophils # (A) 0.1 k/uL (0-0.2); Basophils % (A) 1 %; Eosinophils # (A) 0.1 k/uL (0-0.7); Eosinophils % (A) 1 %; HCT 38.3 % (34.0-46.0); HGB 12.5 gm/dL (11.4-16.0); Lymphocytes # (A) 0.8 k/uL (1.0-4.8); Lymphocytes % (A) 9 %; MCH 30.3 pg (25.0-35.0); MCHC 32.6 g/dL (31.0-37.0); MCV 92.9 fL (80.0-100.0); Mean Platelet Volume 8.1; Monocytes # (A) 0.4 k/uL (0-1.0); Monocytes % (A) 4 %; Neutrophils # (A) 7.4 k/uL (1.3-7.7); Neutrophils % (A) 84 %; Platelet Count 151 k/uL (150-450); RBC 4.12 m/uL (3.80-5.40); RDW 15.4 % (11.5-15.5); WBC 8.8 k/uL (3.8-10.6)
[2022-11-02 14:06] LABS: Partial Thromboplastin Time 25.7 sec (22.0-30.0); Prothrombin Time 10.8 sec (9.0-12.0)
--- NOTE | 2022-11-02 14:06 | XR ---
EXAMINATION TYPE: XR chest 2V DATE OF EXAM: 11/02/2022 COMPARISON: 07/23/2022 TECHNIQUE: PA and lateral views submitted. HISTORY: Vomiting, difficulty breathing FINDINGS: The lungs are clear and there is no pneumothorax, pleural effusion, or focal pneumonia. Coarsened i nterstitium with cardiomegaly. Atherosclerotic change aorta. Postsurgical change right shoulder. Hype rinflation. Degenerative changes in the spine. IMPRESSION: 1. COPD correlate for interstitial pneumonitis..
[2022-11-02 14:08] LABS: Albumin 3.5 g/dL (3.5-5.0); Calcium 8.3 mg/dL (8.4-10.2); Magnesium 1.7 mg/dL (1.6-2.3); Potassium 3.9 mmol/L (3.5-5.1); Total Bilirubin 0.3 mg/dL (0.2-1.3); Total Protein 6.7 g/dL (6.3-8.2)
[2022-11-02] MEDS ORDERED: SODIUM CHLORIDE 0.9% 500 ML 500 ML IV ONE (14:44)
[2022-11-02] MEDS ORDERED: SODIUM CHLORIDE 0.9% 1,000 ML IV SCH (14:45)
--- NOTE | 2022-11-02 15:24 | US ---
EXAMINATION TYPE: US liver DATE OF EXAM: 11/02/2022 COMPARISON: CT CLINICAL HISTORY: abd pain, transaminitis. Elevated LFT's, GB removed TECHNIQUE: Multiple sonographic images of the right upper quadrant are obtained. FINDINGS: EXAM MEASUREMENTS: Liver Length: 18.7 cm CBD: 0.8 cm Right Kidney: 11.0 x 5.1 x 5.3 cm MORTGAGE MANAGER NOTES: Pancreas: 2 mm panc duct visualized which is within normal limits., tail obscured by overlying bowel gas, Liver: Enlarged, heterogeneous , no masses visualized. No ductal dilation. Gallbladder: Surgically absent Evidence for sonographic Shields's sign: No CBD: wnl, post noemi Right Kidney: No evidence of hydro, 8mm calculus lower pole IMPRESSION: 1. Mild heterogenous appearance of the liver suggestive of hepatocellular disease. 2. Similar bilateral nonobstructing calculi back to 2014 3. Similar dilation of the common duct dating back to 2014.
[2022-11-02 17:52] VITALS: BP 162/89; PULSE 74; RESP 18; TEMP 99.2
== END 2022-11-02 17:51 | disposition home or self-care (01) ==
LOC: EC 13:17
DX: U07.1 COVID-19 (principal); K75.9 Inflammatory liver disease, unspecified; I48.91 Unspecified atrial fibrillation; J44.9 Chronic obstructive pulmonary disease, unspecified; E11.9 Type 2 diabetes mellitus without complications; I13.0 Hypertensive heart and chronic kidney disease with heart failure and stage 1 through stage 4 chronic kidney disease, or unspecified chronic kidney disease; M19.90 Unspecified osteoarthritis, unspecified site; I50.9 Heart failure, unspecified; N18.9 Chronic kidney disease, unspecified; E78.5 Hyperlipidemia, unspecified; F41.9 Anxiety disorder, unspecified; F32.A Depression, unspecified; Z87.891 Personal history of nicotine dependence; Z88.1 Allergy status to other antibiotic agents; Z88.8 Allergy status to other drugs, medicaments and biological substances; Z79.01 Long term (current) use of anticoagulants; Z79.4 Long term (current) use of insulin; Z79.899 Other long term (current) drug therapy
CPT/HCPCS: 36415; 71046; 76705; 80053; 80143; 83605; 83735; 83880; 85025; 85610; 85730; 93005; 96360; 99284

== ENCOUNTER 2022-12-10 11:16 | Emergency (ER) | payer MEDICARE, BC ==
--- NOTE | 2022-12-10 12:24 | ED ---
General Adult HPI - General Chief complaint: Urogenital Stated complaint: UTI Time Seen by Provider: 12/10/22 11:53 Source: patient Mode of arrival: EMS - History of Present Illness Initial comments: Dictation was produced using [employer] dictation software. please excuse any g rammatical, word or spelling errors. Chief Complaint: 82-year-old female presents emergency department for pus in her diaper History of Present Illness: Patient's 82-year-old female she lives at adult foster care. She has multiple comorbidities. She is brought here to the emergency department after barman noticed pus in her diaper. Patient states that she's had dysuria for one year. Denies any CVA pain. No constitutional symptoms. Denies any pelvic or rectal pain. The ROS documented in this emergency department record has been reviewed and confirmed by me. Those systems with pertinent positive or negative responses have been documented in the HPI. All other systems are other negative and/or noncontributory. PHYSICAL EXAM: General Impression: Alert and oriented x3, not in acute distress HEENT: Normocephalic atraumatic, extra-ocular movements intact, pupils equal and reactive to light bilaterally, mucous membranes moist. Cardiovascular: Heart regular rate and rhythm Chest: Able to complete full sentences, no retractions, no tachypnea Abdomen: abdomen soft, non-tender, non-distended, no organomegaly Musculoskeletal: Pulses present and equal in all extremities, no peripheral edema Motor: no focal deficits noted Neurological: CN II-XII grossly intact, no focal motor or sensory deficits noted Skin: Intact with no visualized rashes Psych: Normal affect and mood exam: Unremarkable, no perineal rash or fluctuant mass ED course: 82-year-old female presents emergency department for chief complaint of pus noticed in the diaper. Vital signs upon arrival are within acceptable limits. Physical examination is unremarkable. Nursing notes and chart review was performed Laboratory evaluation obtained. CBC, coag panel, blood panel is unremarkable. Patient's renal markers. Be slightly more elevated. Urinalysis suggests urinary tract infection. Recent Jossue biology specimens from the urine were reviewed. Most recently she had multidrug sensitive E. coli of her prior to that she has had drug resistant bacteria. Patient evaluated bedside at 2:50 PM findings to medical condition. Patient be discharged. Prescribed cephalosporin. Return precautions discussed. Was pt. sent in by a medical professional or institution (RASHEL George, PAYROLL CLERK, urgent care, hospital, or custodial...) When possible be specific @ -Adult foster care Did you speak to anyone other than the patient for history (EMS, parent, family, police, friend...)? What history was obtained from this source @ -EMS Did you review nursing and triage notes (agree or disagree)? Why? @ -I reviewed and agree with nursing and triage notes Were old charts reviewed (outside hosp., previous admission, EMS record, old EKG, old radiological studies, urgent care reports/EKG's, custodial records)? Report findings @ -Reviewed old microbiology results Differential Diagnosis (chest pain, altered mental status, abdominal pain women, abdominal pain men, vaginal bleeding, weakness, fever, dyspnea, syncope, head ache, dizziness, GI bleed, back pain, seizure, CVA, palpatations, mental health)? @ -UTI, urethritis, perineal abscess EKG interpreted by me (3pts min.). @ -As above X-rays interpreted by me (1pt min.). @ -None done CT interpreted by me (1pt min.). @ -None done U/S interpreted by me (1pt. min.). @ -None done What testing was considered but not performed or refused? (CT, X-rays, U/S, labs)? Why? @ -None What meds were considered but not given or refused? Why? @ -None Did you discuss the management of the patient with other professionals (professionals i.e. RASHEL George, PAYROLL CLERK, lab, RT, psych nurse, outreach and education social worker, shoe polisher, teacher, compliance review officer, binder caser)? Give summary @ -Spoke with Dr. Chavarria regarding possible admission. He recommended discharge and will try to follow-up with culture results. Was smoking cessation discussed for >3mins.? @ -No Was critical care preformed (if so, how long)? @ -No Were there social determinants of health that impacted care today? How? (Homelessness, low income, unemployed, alcoholism, drug addiction, transportation, low edu. Level, literacy, decrease access to med. care, half-way, rehab)? @ -No Was there de-escalation of care discussed even if they declined (Discuss DNR or withdrawal of care, Hospice)? DNR status @ -No What co-morbidities impacted this encounter? (DM, HTN, Smoking, COPD, CAD, Can cer, CVA, ARF, Chemo, Hep., AIDS, mental health diagnosis, sleep apnea, morbid obesity)? @ -None Was patient admitted / discharged? Hospital course, mention meds given and route, prescriptions, significant lab abnormalities, going to OR and other pertinent info. @ -See above Undiagnosed new problem with uncertain prognosis? @ -No Drug Therapy requiring intensive monitoring for toxicity (Heparin, Nitro, Insulin, Cardizem)? @ -No Were any procedures done? @ -No Diagnosis/symptom? @ -Urinary tract infection Acute, or Chronic, or Acute on Chronic? @ -default Uncomplicated (without systemic symptoms) or Complicated (systemic symptoms)? @ -default Side effects of treatment? @ -No Exacerbation, Progression, or Severe Exacerbation? @ -No Poses a threat to life or bodily function? How? (Chest pain, [place], AL, pneumonia, PE, COPD, DKA, ARF, appy, cholecystitis, CVA, Diverticulitis, Homicidal, Suicidal, threat to staff... and all critical care pts) @ -yes - Related Data Home Medications Medication Instructions Recorded Confirmed Atorvastatin [Lipitor] 20 mg PO HS 07/15/14 12/10/22 Apixaban [Eliquis] 2.5 mg PO BID 01/28/21 12/10/22 Latanoprost Ophth [Xalatan 0.005%] 1 drop BOTH EYES HS 01/28/21 12/10/22 Montelukast [Singulair] 10 mg PO HS 01/28/21 12/10/22 Roflumilast [Daliresp] 500 mcg PO DAILY 01/28/21 12/10/22 Vit C/E/Zn/Coppr/Lutein/Zeaxan 1 cap PO BID 01/28/21 12/10/22 [Preservision Areds 2 Softgel] ALPRAZolam [Xanax] 0.25 mg PO DAILY PRN 09/03/21 12/10/22 Ascorbic Acid [Vitamin C] 1,000 mg PO DAILY 09/03/21 12/10/22 Ipratropium-Albuterol Nebulize 3 ml INHALATION RT-QID 09/03/21 12/10/22 [Duoneb 0.5 mg-3 mg/3 ml Soln] Sertraline [Zoloft] 50 mg PO TID 09/03/21 12/10/22 Amiodarone [Cordarone] 200 mg PO BID 10/18/21 12/10/22 Furosemide [Lasix] 40 mg PO DAILY 10/18/21 12/10/22 Melatonin 3 mg PO HS 10/18/21 12/10/22 Metoprolol Tartrate [Lopressor] 75 mg PO TID 10/18/21 12/10/22 Insulin Glargine,Hum.rec.anlog 46 units SQ HS 07/23/22 12/10/22 [Toujeo Solostar] Insulin Lispro [humaLOG Kwikpen] See Protocol SQ ACHS PRN 07/23/22 12/10/22 Azelastine HCl [Astepro Allergy] 1 spray NASAL BID PRN 12/10/22 12/10/22 Cyanocobalamin (Vitamin B-12) 1,000 mcg PO DAILY 12/10/22 12/10/22 [Vitamin B-12] DULoxetine HCL 20 mg PO DAILY 12/10/22 12/10/22 Ergocalciferol (Vitamin D2) 1,250 mcg PO Q30D 12/10/22 12/10/22 [Drisdol (50,000 Iu)] Previous Rx's Medication Instructions Recorded Cefpodoxime Proxetil [Vantin] 200 mg PO Q12HR 10 Days #20 tab 12/10/22 Allergies Allergy/AdvReac Type Severity Reaction Status Date / Time diclofenac sodium Allergy Unknown Verified 12/10/22 12:52 [From Voltaren] adhesive tape AdvReac Rash/Hives Verified 12/10/22 12:52 Review of Systems ROS Statement: Those systems with pertinent positive or pertinent negative responses have been documented in the HPI. ROS Other: All systems not noted in ROS Statement are negative. Past Medical History Past Medical History: Atrial Fibrillation, Cancer, Heart Failure, COPD, Diabetes Mellitus, Eye Disorder, Hyperlipidemia, Hypertension, Osteoarthritis (OA), Pneumonia, Renal Disease, Seizure Disorder, Sleep Apnea/CPAP/BIPAP Additional Past Medical History / Comment(s): IDDM type II, neuropathy bilateral feet, past hematuria, CKD stage III, nephrolithiasis, chronic respiratory failure/home oxygen 3L/[place] ATC, bronchitis, R breast cancer x2 with lumpectomies/radiation, RACHEL/cpap used, spinal stenosis/chronic back pain, IBS, seizure x2 as a teen and one in 2010, bilateral macular degeneration/very poor vision, current wound R lower leg/skin tear and is seen at [facility]/home nurse, [place] History of Any Multi-Drug Resistant Organisms: MRSA, VRE Date of last positivie culture/infection: 10/02/21 09/13/21 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 Past Anesthesia/Blood Transfusion Reactions: No Reported Reaction, Motion Sickness Past Psychological History: Anxiety, Depression Smoking Status: Former smoker Past Alcohol Use History: None Reported Past Drug Use History: None Reported - Past Family History Mother Additional Family Medical History / Comment(s): breast ca Father Family Medical History: Cancer Additional Family Medical History / Comment(s): Prostate cancer. Course Vital Signs 12/10/22 11:26 Temperature 98.1 F Pulse Rate 72 Respiratory 18 Rate Blood Pressure 138/54 O2 Sat by Pulse 100 Oximetry Medical Decision Making - Lab Data Result diagrams: 12/10/22 12:28 12/10/22 12:28 Lab Results 12/10/22 12/10/22 12/10/22 Range/Units 12:11 12:28 12:28 WBC 9.9 (3.8-10.6) k/uL RBC 4.47 (3.80-5.40) m/uL Hgb 12.8 (11.4-16.0) gm/dL Hct 40.9 (34.0-46.0) % MCV 91.6 (80.0-100.0) fL MCH 28.6 (25.0-35.0) pg MCHC 31.3 (31.0-37.0) g/dL RDW 16.3 H (11.5-15.5) % Plt Count 248 (150-450) k/uL MPV 7.6 Neutrophils % 72 % Lymphocytes % 18 % Monocytes % 5 % Eosinophils % 3 % Basophils % 1 % Neutrophils # 7.1 (1.3-7.7) k/uL Lymphocytes # 1.8 (1.0-4.8) k/uL Monocytes # 0.5 (0-1.0) k/uL Eosinophils # 0.3 (0-0.7) k/uL Basophils # 0.1 (0-0.2) k/uL Anisocytosis Slight PT 11.3 (9.0-12.0) sec INR 1.1 (<1.2) APTT 28.9 (22.0-30.0) sec Sodium (137-145) mmol/L Potassium (3.5-5.1) mmol/L Chloride (98-107) mmol/L Carbon Dioxide (22-30) mmol/L Anion Gap mmol/L BUN (7-17) mg/dL Creatinine (0.52-1.04) mg/dL Est GFR (CKD-EPI)AfAm (>60 ml/min/1.73 sqM) Est GFR (CKD-EPI)NonAf (>60 ml/min/1.73 sqM) Glucose (74-99) mg/dL Calcium (8.4-10.2) mg/dL Magnesium (1.6-2.3) mg/dL Total Bilirubin (0.2-1.3) mg/dL AST (14-36) U/L ALT (4-34) U/L Alkaline Phosphatase (38-126) U/L Total Protein (6.3-8.2) g/dL Albumin (3.5-5.0) g/dL Urine Color Light Yellow Urine Appearance Turbid H (Clear) Urine pH 8.0 (5.0-8.0) Ur Specific [place] 1.015 (1.001-1.035) Urine Protein 2+ H (Negative) Urine Glucose (UA) Negative (Negative) Urine Ketones Negative (Negative) Urine Blood Trace H (Negative) Urine Nitrite Negative (Negative) Urine Bilirubin Negative (Negative) Urine Urobilinogen <2.0 (<2.0) mg/dL Ur Leukocyte Esterase Large H (Negative) Urine RBC 3 (0-5) /hpf Urine WBC >182 H (0-5) /hpf Urine WBC Clumps Many H (None) /hpf Ur Squamous Epith Cells 2 (0-4) /hpf Urine Bacteria Moderate H (None) /hpf Urine Mucus Rare H (None) /hpf 12/10/22 Range/Units 12:28 WBC (3.8-10.6) k/uL RBC (3.80-5.40) m/uL Hgb (11.4-16.0) gm/dL Hct (34.0-46.0) % MCV (80.0-100.0) fL MCH (25.0-35.0) pg MCHC (31.0-37.0) g/dL RDW (11.5-15.5) % Plt Count (150-450) k/uL MPV Neutrophils % % Lymphocytes % % Monocytes % % Eosinophils % % Basophils % % Neutrophils # (1.3-7.7) k/uL Lymphocytes # (1.0-4.8) k/uL Monocytes # (0-1.0) k/uL Eosinophils # (0-0.7) k/uL Basophils # (0-0.2) k/uL Anisocytosis PT (9.0-12.0) sec INR (<1.2) APTT (22.0-30.0) sec Sodium 141 (137-145) mmol/L Potassium 4.2 (3.5-5.1) mmol/L Chloride 107 (98-107) mmol/L Carbon Dioxide 25 (22-30) mmol/L Anion Gap 9 mmol/L BUN 66 H (7-17) mg/dL Creatinine 2.60 H (0.52-1.04) mg/dL Est GFR (CKD-EPI)AfAm 19 (>60 ml/min/1.73 sqM) Est GFR (CKD-EPI)NonAf 17 (>60 ml/min/1.73 sqM) Glucose 122 H (74-99) mg/dL Calcium 8.6 (8.4-10.2) mg/dL Magnesium 2.0 (1.6-2.3) mg/dL Total Bilirubin 0.4 (0.2-1.3) mg/dL AST 49 H (14-36) U/L ALT 33 (4-34) U/L Alkaline Phosphatase 189 H (38-126) U/L Total Protein 6.8 (6.3-8.2) g/dL Albumin 3.5 (3.5-5.0) g/dL Urine Color Urine Appearance (Clear) Urine pH (5.0-8.0) Ur Specific [place] (1.001-1.035) Urine Protein (Negative) Urine Glucose (UA) (Negative) Urine Ketones (Negative) Urine Blood (Negative) Urine Nitrite (Negative) Urine Bilirubin (Negative) Urine Urobilinogen (<2.0) mg/dL Ur Leukocyte Esterase (Negative) Urine RBC (0-5) /hpf Urine WBC (0-5) /hpf Urine WBC Clumps (None) /hpf Ur Squamous Epith Cells (0-4) /hpf Urine Bacteria (None) /hpf Urine Mucus (None) /hpf Disposition Clinical Impression: UTI (urinary tract infection) Disposition: HOME SELF-CARE Condition: Fair Instructions (If sedation given, give patient instructions): Urinary Tract Infection in Women (ED) Prescriptions: Cefpodoxime Proxetil [Vantin] 200 mg PO Q12HR 10 Days #20 tab Is patient prescribed a controlled substance at d/c from ED?: No Referrals: Stu Ring MD [Primary Care Provider] - 1-2 days Time of Disposition: 14:57
[2022-12-10 12:50] LABS: Anisocytosis Slight; Basophils # (A) 0.1 k/uL (0-0.2); Basophils % (A) 1 %; Eosinophils # (A) 0.3 k/uL (0-0.7); Eosinophils % (A) 3 %; HCT 40.9 % (34.0-46.0); HGB 12.8 gm/dL (11.4-16.0); Lymphocytes # (A) 1.8 k/uL (1.0-4.8); Lymphocytes % (A) 18 %; MCH 28.6 pg (25.0-35.0); MCHC 31.3 g/dL (31.0-37.0); MCV 91.6 fL (80.0-100.0); Mean Platelet Volume 7.6; Monocytes # (A) 0.5 k/uL (0-1.0); Monocytes % (A) 5 %; Neutrophils # (A) 7.1 k/uL (1.3-7.7); Neutrophils % (A) 72 %; Platelet Count 248 k/uL (150-450); RBC 4.47 m/uL (3.80-5.40); RDW 16.3 % (11.5-15.5); WBC 9.9 k/uL (3.8-10.6)
[2022-12-10 13:09] LABS: INR 1.1 (<1.2); Partial Thromboplastin Time 28.9 sec (22.0-30.0); Prothrombin Time 11.3 sec (9.0-12.0)
[2022-12-10 13:42] LABS: Albumin 3.5 g/dL (3.5-5.0); Calcium 8.6 mg/dL (8.4-10.2); Potassium 4.2 mmol/L (3.5-5.1); Total Bilirubin 0.4 mg/dL (0.2-1.3); Total Protein 6.8 g/dL (6.3-8.2)
[2022-12-10 13:54] LABS: Appearance,Urine Turbid (Clear); Bacteria,Urine Moderate /hpf; Bilirubin,Urine Negative (Negative); Blood,Urine Trace (Negative); Color,Urine Light Yellow; Glucose,Urine (UA) Negative (Negative); Ketones,Urine Negative (Negative); Leukocyte Esterase,Urine Large (Negative); Mucus,Urine Rare /hpf; Nitrite,Urine Negative (Negative); Protein,Urine 2+ (Negative); RBC,Urine 3 /hpf (0-5); Specific Gravity,Urine 1.015 (1.001-1.035); Squamous Epithelial Cell,Urine 2 /hpf (0-4); Urobilinogen,Urine <2.0 mg/dL (<2.0); WBC,Urine >182 /hpf (0-5)
[2022-12-10] MEDS ORDERED: cefTRIAXone IN SWFI 1,000 MG/10 ML SYRINGE IVP STA (14:11)
--- NOTE | 2022-12-10 16:58 | ED ---
Medical Decision Making - Lab Data Result diagrams: 12/10/22 12:28 12/10/22 12:28 Lab Results 12/10/22 12/10/22 12/10/22 Range/Units 12:11 12:28 12:28 WBC 9.9 (3.8-10.6) k/uL RBC 4.47 (3.80-5.40) m/uL Hgb 12.8 (11.4-16.0) gm/dL Hct 40.9 (34.0-46.0) % MCV 91.6 (80.0-100.0) fL MCH 28.6 (25.0-35.0) pg MCHC 31.3 (31.0-37.0) g/dL RDW 16.3 H (11.5-15.5) % Plt Count 248 (150-450) k/uL MPV 7.6 Neutrophils % 72 % Lymphocytes % 18 % Monocytes % 5 % Eosinophils % 3 % Basophils % 1 % Neutrophils # 7.1 (1.3-7.7) k/uL Lymphocytes # 1.8 (1.0-4.8) k/uL Monocytes # 0.5 (0-1.0) k/uL Eosinophils # 0.3 (0-0.7) k/uL Basophils # 0.1 (0-0.2) k/uL Anisocytosis Slight PT 11.3 (9.0-12.0) sec INR 1.1 (<1.2) APTT 28.9 (22.0-30.0) sec Sodium (137-145) mmol/L Potassium (3.5-5.1) mmol/L Chloride (98-107) mmol/L Carbon Dioxide (22-30) mmol/L Anion Gap mmol/L BUN (7-17) mg/dL Creatinine (0.52-1.04) mg/dL Est GFR (CKD-EPI)AfAm (>60 ml/min/1.73 sqM) Est GFR (CKD-EPI)NonAf (>60 ml/min/1.73 sqM) Glucose (74-99) mg/dL Calcium (8.4-10.2) mg/dL Magnesium (1.6-2.3) mg/dL Total Bilirubin (0.2-1.3) mg/dL AST (14-36) U/L ALT (4-34) U/L Alkaline Phosphatase (38-126) U/L Total Protein (6.3-8.2) g/dL Albumin (3.5-5.0) g/dL Urine Color Light Yellow Urine Appearance Turbid H (Clear) Urine pH 8.0 (5.0-8.0) Ur Specific [place] 1.015 (1.001-1.035) Urine Protein 2+ H (Negative) Urine Glucose (UA) Negative (Negative) Urine Ketones Negative (Negative) Urine Blood Trace H (Negative) Urine Nitrite Negative (Negative) Urine Bilirubin Negative (Negative) Urine Urobilinogen <2.0 (<2.0) mg/dL Ur Leukocyte Esterase Large H (Negative) Urine RBC 3 (0-5) /hpf Urine WBC >182 H (0-5) /hpf Urine WBC Clumps Many H (None) /hpf Ur Squamous Epith Cells 2 (0-4) /hpf Urine Bacteria Moderate H (None) /hpf Urine Mucus Rare H (None) /hpf 12/10/22 Range/Units 12:28 WBC (3.8-10.6) k/uL RBC (3.80-5.40) m/uL Hgb (11.4-16.0) gm/dL Hct (34.0-46.0) % MCV (80.0-100.0) fL MCH (25.0-35.0) pg MCHC (31.0-37.0) g/dL RDW (11.5-15.5) % Plt Count (150-450) k/uL MPV Neutrophils % % Lymphocytes % % Monocytes % % Eosinophils % % Basophils % % Neutrophils # (1.3-7.7) k/uL Lymphocytes # (1.0-4.8) k/uL Monocytes # (0-1.0) k/uL Eosinophils # (0-0.7) k/uL Basophils # (0-0.2) k/uL Anisocytosis PT (9.0-12.0) sec INR (<1.2) APTT (22.0-30.0) sec Sodium 141 (137-145) mmol/L Potassium 4.2 (3.5-5.1) mmol/L Chloride 107 (98-107) mmol/L Carbon Dioxide 25 (22-30) mmol/L Anion Gap 9 mmol/L BUN 66 H (7-17) mg/dL Creatinine 2.60 H (0.52-1.04) mg/dL Est GFR (CKD-EPI)AfAm 19 (>60 ml/min/1.73 sqM) Est GFR (CKD-EPI)NonAf 17 (>60 ml/min/1.73 sqM) Glucose 122 H (74-99) mg/dL Calcium 8.6 (8.4-10.2) mg/dL Magnesium 2.0 (1.6-2.3) mg/dL Total Bilirubin 0.4 (0.2-1.3) mg/dL AST 49 H (14-36) U/L ALT 33 (4-34) U/L Alkaline Phosphatase 189 H (38-126) U/L Total Protein 6.8 (6.3-8.2) g/dL Albumin 3.5 (3.5-5.0) g/dL Urine Color Urine Appearance (Clear) Urine pH (5.0-8.0) Ur Specific [place] (1.001-1.035) Urine Protein (Negative) Urine Glucose (UA) (Negative) Urine Ketones (Negative) Urine Blood (Negative) Urine Nitrite (Negative) Urine Bilirubin (Negative) Urine Urobilinogen (<2.0) mg/dL Ur Leukocyte Esterase (Negative) Urine RBC (0-5) /hpf Urine WBC (0-5) /hpf Urine WBC Clumps (None) /hpf Ur Squamous Epith Cells (0-4) /hpf Urine Bacteria (None) /hpf Urine Mucus (None) /hpf Disposition Clinical Impression: UTI (urinary tract infection) Disposition: HOME SELF-CARE Condition: Fair Instructions (If sedation given, give patient instructions): Urinary Tract Infection in Women (ED) Prescriptions: Cefpodoxime Proxetil [Vantin] 200 mg PO Q12HR 10 Days #20 tab Cefpodoxime Proxetil [Vantin] 200 mg PO Q12HR 10 Days #20 tab Is patient prescribed a controlled substance at d/c from ED?: No Referrals: Stu Ring MD [Primary Care Provider] - 1-2 days Time of Disposition: 16:58
[2022-12-10 19:40] VITALS: BP 110/61; PULSE 70; RESP 16
[2022-12-10 19:41] VITALS: TEMP 97.7
== END 2022-12-10 18:45 | disposition home or self-care (01) ==
LOC: EC 11:16
DX: N39.0 Urinary tract infection, site not specified (principal); I13.0 Hypertensive heart and chronic kidney disease with heart failure and stage 1 through stage 4 chronic kidney disease, or unspecified chronic kidney disease; I48.91 Unspecified atrial fibrillation; I50.9 Heart failure, unspecified; E11.22 Type 2 diabetes mellitus with diabetic chronic kidney disease; E11.36 Type 2 diabetes mellitus with diabetic cataract; E78.5 Hyperlipidemia, unspecified; F32.A Depression, unspecified; F41.9 Anxiety disorder, unspecified; G47.33 Obstructive sleep apnea (adult) (pediatric); J44.9 Chronic obstructive pulmonary disease, unspecified; M19.90 Unspecified osteoarthritis, unspecified site; N18.30 Chronic kidney disease, stage 3 unspecified; Z79.01 Long term (current) use of anticoagulants; Z79.4 Long term (current) use of insulin; Z79.899 Other long term (current) drug therapy; Z87.891 Personal history of nicotine dependence; Z88.8 Allergy status to other drugs, medicaments and biological substances
CPT/HCPCS: 36415; 80053; 83735; 85025; 85610; 85730; 81001; 87086; 99284; J0696; 87077; 87186

== ENCOUNTER 2023-03-04 20:41 | Emergency (ER) | payer MEDICARE, BC ==
[2023-03-04 20:46] VITALS: BP 150/102; PULSE 77; RESP 16; TEMP 98.9
[2023-03-04] MEDS ORDERED: LIDOCAINE 1% INJ 10MG/ML (30 ML VIAL-PF) SQ ONE (21:18)
[2023-03-04] MEDS ORDERED: DIPH,PERTUS(ACELL)TETVAC-LF 0.5 ML VIAL IM ONE (21:18)
[2023-03-04] MEDS ORDERED: LORazepam 1 MG TAB PO STA (21:35)
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
== END 2023-03-04 22:53 | disposition home or self-care (01) ==
LOC: EC 20:41
DX: S81.812A Laceration without foreign body, left lower leg, initial encounter (principal); I48.91 Unspecified atrial fibrillation; I50.9 Heart failure, unspecified; J44.9 Chronic obstructive pulmonary disease, unspecified; I13.0 Hypertensive heart and chronic kidney disease with heart failure and stage 1 through stage 4 chronic kidney disease, or unspecified chronic kidney disease; E11.9 Type 2 diabetes mellitus without complications; N18.30 Chronic kidney disease, stage 3 unspecified; G47.30 Sleep apnea, unspecified; E78.5 Hyperlipidemia, unspecified; F41.9 Anxiety disorder, unspecified; F32.A Depression, unspecified; M19.90 Unspecified osteoarthritis, unspecified site; Z87.891 Personal history of nicotine dependence; Z79.1 Long term (current) use of non-steroidal anti-inflammatories (NSAID); Z79.01 Long term (current) use of anticoagulants; Z79.899 Other long term (current) drug therapy; Z79.84 Long term (current) use of oral hypoglycemic drugs; Z79.4 Long term (current) use of insulin; Z91.09 Other allergy status, other than to drugs and biological substances; Z88.6 Allergy status to analgesic agent; Z23 Encounter for immunization; W23.0XXA Caught, crushed, jammed, or pinched between moving objects, initial encounter
CPT/HCPCS: 99283 ×2; 12001 ×2; 90471; 90715; J2001

== ENCOUNTER 2023-03-30 22:50 | Emergency (ER) | payer MEDICARE, BC ==
[2023-03-30 23:02] VITALS: RESP 16; TEMP 98.5
--- NOTE | 2023-03-30 23:43 | ED ---
General Adult HPI - General Chief complaint: Shortness of Breath Stated complaint: SOB Time Seen by Provider: 03/30/23 22:55 Source: patient Mode of arrival: EMS - History of Present Illness Initial comments: Dictation was produced using [employer] dictation software. please excuse any grammatical, word or spelling errors. Chief Complaint: 82-year-old female multiple comorbidities presents emergency department for hypoxia History of Present Illness: Patient is a 82-year-old female presents emergency department for hypoxia. Patient presents to us from [facility]. Patient allegedly had abnormal oxygen level readings. Patient burned to the emergency department by EMS. Patient denies any complaints. She was recently admitted for a wound to one of the lower extremities. Patient has no complaints. She states that she feels short of breath at baseline. Patient has multiple complaints. Denies any fever. No chest pain. Apparently patient had abnormal hypoxic readings. EMS also had abnormal readings. Prehospital staff did not have good waveforms however. Patient wears 3 L nasal cannula at baseline. The ROS documented in this emergency department record has been reviewed and confirmed by me. Those systems with pertinent positive or negative responses have been documented in the HPI. All other systems are other negative and/or noncontributory. - Related Data Home Medications Medication Instructions Recorded Confirmed Atorvastatin [Lipitor] 20 mg PO HS 07/15/14 12/10/22 Apixaban [Eliquis] 2.5 mg PO BID 01/28/21 12/10/22 Latanoprost Ophth [Xalatan 0.005%] 1 drop BOTH EYES HS 01/28/21 12/10/22 Montelukast [Singulair] 10 mg PO HS 01/28/21 12/10/22 Roflumilast [Daliresp] 500 mcg PO DAILY 01/28/21 12/10/22 Vit C/E/Zn/Coppr/Lutein/Zeaxan 1 cap PO BID 01/28/21 12/10/22 [Preservision Areds 2 Softgel] ALPRAZolam [Xanax] 0.25 mg PO DAILY PRN 09/03/21 12/10/22 Ascorbic Acid [Vitamin C] 1,000 mg PO DAILY 09/03/21 12/10/22 Ipratropium-Albuterol Nebulize 3 ml INHALATION RT-QID 09/03/21 12/10/22 [Duoneb 0.5 mg-3 mg/3 ml Soln] Sertraline [Zoloft] 50 mg PO TID 09/03/21 12/10/22 Amiodarone [Cordarone] 200 mg PO BID 10/18/21 12/10/22 Furosemide [Lasix] 40 mg PO DAILY 10/18/21 12/10/22 Melatonin 3 mg PO HS 10/18/21 12/10/22 Metoprolol Tartrate [Lopressor] 75 mg PO TID 10/18/21 12/10/22 Insulin Glargine,Hum.rec.anlog 46 units SQ HS 07/23/22 12/10/22 [Toujeo Solostar] Insulin Lispro [humaLOG Kwikpen] See Protocol SQ ACHS PRN 07/23/22 12/10/22 Azelastine HCl [Astepro Allergy] 1 spray NASAL BID PRN 12/10/22 12/10/22 Cyanocobalamin (Vitamin B-12) 1,000 mcg PO DAILY 12/10/22 12/10/22 [Vitamin B-12] DULoxetine HCL 20 mg PO DAILY 12/10/22 12/10/22 Ergocalciferol (Vitamin D2) 1,250 mcg PO Q30D 12/10/22 12/10/22 [Drisdol (50,000 Iu)] Previous Rx's Medication Instructions Recorded Cefpodoxime Proxetil [Vantin] 200 mg PO Q12HR 10 Days #20 tab 12/10/22 Cefpodoxime Proxetil [Vantin] 200 mg PO Q12HR 10 Days #20 tab 12/10/22 Cephalexin [Keflex] 500 mg PO Q6HR 7 Days #21 cap 03/04/23 Allergies Allergy/AdvReac Type Severity Reaction Status Date / Time diclofenac sodium Allergy Unknown Verified 03/30/23 23:02 [From Voltaren] adhesive tape AdvReac Rash/Hives Verified 03/30/23 23:02 Review of Systems ROS Statement: Those systems with pertinent positive or pertinent negative responses have been documented in the HPI. ROS Other: All systems not noted in ROS Statement are negative. Past Medical History Past Medical History: Atrial Fibrillation, Cancer, Heart Failure, COPD, Diabetes Mellitus, Eye Disorder, Hyperlipidemia, Hypertension, Osteoarthritis (OA), Pneumonia, Renal Disease, Seizure Disorder, Sleep Apnea/CPAP/BIPAP Additional Past Medical History / Comment(s): IDDM type II, neuropathy bilateral feet, past hematuria, CKD stage III, nephrolithiasis, chronic respiratory failure/home oxygen 3L/[place] ATC, bronchitis, R breast cancer x2 with lumpectomies/radiation, RACHEL/cpap used, spinal stenosis/chronic back pain, IBS, seizure x2 as a teen and one in 2010, bilateral macular degeneration/very poor vision, current wound R lower leg/skin tear and is seen at [facility]/home nurse, [place] History of Any Multi-Drug Resistant Organisms: MRSA, VRE Date of last positivie culture/infection: 10/02/21 09/13/21 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 Past Anesthesia/Blood Transfusion Reactions: No Reported Reaction, Motion Sickness Past Psychological History: Anxiety, Depression Smoking Status: Former smoker Past Alcohol Use History: None Reported Past Drug Use History: None Reported - Past Family History Mother Additional Family Medical History / Comment(s): breast ca Father Family Medical History: Cancer Additional Family Medical History / Comment(s): Prostate cancer. General Exam - General Exam Comments Initial Comments: PHYSICAL EXAM: General Impression: Alert and oriented x3, not in acute distress HEENT: Normocephalic atraumatic, extra-ocular movements intact, pupils equal and reactive to light bilaterally, mucous membranes moist. Cardiovascular: Heart regular rate and rhythm Chest: Able to complete full sentences, no retractions, no tachypnea Abdomen: abdomen soft, non-tender, non-distended, no organomegaly Musculoskeletal: Pulses present and equal in all extremities, no peripheral edema Motor: no focal deficits noted Neurological: CN II-XII grossly intact, no focal motor or sensory deficits noted Skin: Intact with no visualized rashes Psych: Normal affect and mood Course Vital Signs 03/30/23 22:52 Temperature 98.5 F Pulse Rate 91 Respiratory 16 Rate Blood Pressure 135/71 O2 Sat by Pulse 95 Oximetry - Reevaluation(s) Reevaluation #1: 03/31/23 00:07 I was notified by nurse at 12:07 AM that patient is refusing blood work and IV Reevaluation #2: 03/31/23 00:56Chest x-ray shows findings concerning for pulmonary edema, cardiomegaly and trace right pleural effusion. EKG Findings - EKG Comments: EKG Findings:: My EKG interpretation: Ventricular rate 86, A. fib, QRS 87, QTc 440. no QTC prolongation, no ST or T-wave changes noted. EKG compared to 11/02/2022 showing no changes. Overall, this EKG is unremarkable Medical Decision Making - Medical Decision Making Risks, Benefits, and Treatment alternatives were discussed in detail with the patient. The patient is alert and oriented X 3 and has the capacity to make an informed decision. The risks of increased morbidity including the possibly of were explained to and understood by the patient who is choosing to leave against medical advice. The patient is encouraged to return any time should they want further treatment and diagnostic investigation. Was pt. sent in by a medical professional or institution (, PA, AIR DEFENSE ARTILLERY OFFICER, urgent care, hospital, or longterm...) When possible be specific @ -retirement Did you speak to anyone other than the patient for history (EMS, parent, family, police, friend...)? What history was obtained from this source @ -EMS Did you review nursing and triage notes (agree or disagree)? Why? @ -I reviewed and agree with nursing and triage notes Were old charts reviewed (outside hosp., previous admission, EMS record, old EKG, old radiological studies, urgent care reports/EKG's, longterm records)? Report findings @ -Prior charting was reviewed showing recent admission Differential Diagnosis (chest pain, altered mental status, abdominal pain women, abdominal pain men, vaginal bleeding, musculoskeletal, weakness, fever, dyspnea, syncope, headache, dizziness, GI bleed, back pain, seizure, CVA, palpatations, mental health)? @ -Differential Dyspnea: Coronary syndrome, arrhythmia, tamponade, asthma, COPD, pulmonary embolism, pneumonia, pneumothorax, pulmonary effusion, anaphylaxis, diabetic ketoacidosis, flailed chest, pulmonary contusion, diaphragmatic rupture, anemia, neuro muscular, this is not meant to be an all-inclusive list. EKG interpreted by me (3pts min.). @ -As above X-rays interpreted by me (1pt min.). @ -Evidence of mild heart failure CT interpreted by me (1pt min.). @ -None done U/S interpreted by me (1pt. min.). @ -None done What testing was considered but not performed or refused? (CT, X-rays, U/S, labs)? Why? @ -None What meds were considered but not given or refused? Why? @ -None Did you discuss the management of the patient with other professionals (professionals i.e. , PA, AIR DEFENSE ARTILLERY OFFICER, lab, RT, psych nurse, social scientist, rn women services, teacher, search and rescue officer, case coordinator)? Give summary @ -No Was smoking cessation discussed for >3mins.? @ -No Was critical care preformed (if so, how long)? @ -No Were there social determinants of health that impacted care today? How? (Homelessness, low income, unemployed, alcoholism, drug addiction, transportation, low edu. Level, literacy, decrease access to med. care, group home, rehab)? @ -No Was there de-escalation of care discussed even if they declined (Discuss DNR or withdrawal of care, Hospice)? DNR status @ - is currently DO NOT RESUSCITATE. She is refusing treatment she would like to be discharged. What co-morbidities impacted this encounter? (DM, HTN, Smoking, COPD, CAD, Cancer, CVA, ARF, Chemo, Hep., AIDS, mental health diagnosis, sleep apnea, morbid obesity)? @ -None Was patient admitted / discharged? Hospital course, mention meds given and route, prescriptions, significant lab abnormalities, going to OR and other pertinent info. @ -82-year-old female recently limits of the hospital. She presents to the ER for alleged hypoxia. Patient states that her dyspnea features to be at baseline. She is well-appearing. She is 95% on 3 L nasal cannula. 3 L nasal cannula is her baseline oxygen. Patient refusing any further care would like to be discharged. With a good waveform patient is not hypoxic. Undiagnosed new problem with uncertain prognosis? @ -No Drug Therapy requiring intensive monitoring for toxicity (Heparin, Nitro, Insulin, Cardizem)? @ -No Were any procedures done? @ -No Diagnosis/symptom? Acute, or Chronic, or Acute on Chronic? Uncomplicated (wit hout systemic symptoms) or Complicated (systemic symptoms)? @ -1. Hypoxia Side effects of treatment? @ -No Exacerbation, Progression, or Severe Exacerbation? @ -No Poses a threat to life or bodily function? How? (Chest pain, [place], [place], pneumonia, PE, COPD, DKA, ARF, appy, cholecystitis, CVA, Diverticulitis, Homicidal, Suicidal, threat to staff... and all critical care pts) @ -No Disposition Clinical Impression: Hypoxia Disposition: HOME SELF-CARE Condition: Fair Is patient prescribed a controlled substance at d/c from ED?: No Referrals: Stu Ring MD [Primary Care Provider] - 1-2 days Time of Disposition: 00:58
--- NOTE | 2023-03-31 00:45 | XR ---
EXAM: XR Chest, 2 Views CLINICAL HISTORY: ITS.REASON XR Reason: hypoxia TECHNIQUE: Frontal and lateral views of the chest. COMPARISON: Chest x-ray 11/02/2022 FINDINGS: Lungs: Interstitial and airspace opacities suggestive of pulmonary edema. Pleural space: Trace right pleural effusion. Heart: Cardiomegaly. Bones/joints: Unremarkable. No fracture or malalignment. IMPRESSION: 1. Interstitial and airspace opacities suggestive of pulmonary edema. 2. Cardiomegaly. 3. Trace right pleural effusion.
[2023-03-31 02:02] VITALS: BP 138/70; PULSE 69
== END 2023-03-31 01:30 | disposition home or self-care (01) ==
LOC: EC 22:50
DX: R09.02 Hypoxemia (principal); E11.22 Type 2 diabetes mellitus with diabetic chronic kidney disease; E11.40 Type 2 diabetes mellitus with diabetic neuropathy, unspecified; E11.36 Type 2 diabetes mellitus with diabetic cataract; I13.0 Hypertensive heart and chronic kidney disease with heart failure and stage 1 through stage 4 chronic kidney disease, or unspecified chronic kidney disease; I50.9 Heart failure, unspecified; N18.30 Chronic kidney disease, stage 3 unspecified; J44.9 Chronic obstructive pulmonary disease, unspecified; I48.91 Unspecified atrial fibrillation; E78.5 Hyperlipidemia, unspecified; F32.A Depression, unspecified; F41.9 Anxiety disorder, unspecified; M19.90 Unspecified osteoarthritis, unspecified site; Z79.01 Long term (current) use of anticoagulants; Z79.4 Long term (current) use of insulin; Z79.899 Other long term (current) drug therapy; Z88.6 Allergy status to analgesic agent; Z91.048 Other nonmedicinal substance allergy status; Z87.891 Personal history of nicotine dependence; Z99.81 Dependence on supplemental oxygen
CPT/HCPCS: 71046; 93005; 99285

== ENCOUNTER 2023-04-03 04:28 | Emergency (ER) | payer MEDICARE, BC ==
[2023-04-03] MEDS ORDERED: DEXTROSE 50% SYRINGE 50 ML IVP STA (04:57)
[2023-04-03 04:59] LABS: Glucose,Whole Blood 51 mg/dL (70-110)
[2023-04-03 05:53] LABS: Basophils % (A) 0 %; Eosinophils # (A) 0.1 k/uL (0-0.7); Eosinophils % (A) 1 %; HCT 35.7 % (34.0-46.0); Hypochromasia Slight; Lymphocytes # (A) 1.4 k/uL (1.0-4.8); Lymphocytes % (A) 13 %; MCH 29.9 pg (25.0-35.0); MCHC 30.9 g/dL (31.0-37.0); Macrocytosis Slight; Mean Platelet Volume 7.7; Monocytes # (A) 0.7 k/uL (0-1.0); Monocytes % (A) 7 %; Neutrophils # (A) 7.8 k/uL (1.3-7.7); Neutrophils % (A) 76 %; Platelet Count 223 k/uL (150-450); RBC 3.68 m/uL (3.80-5.40); RDW 15.9 % (11.5-15.5); WBC 10.3 k/uL (3.8-10.6)
[2023-04-03 06:00] LABS: INR 1.1 (<1.2); Partial Thromboplastin Time 29.9 sec (22.0-30.0); Prothrombin Time 11.8 sec (9.0-12.0)
[2023-04-03 06:03] LABS: Albumin 3.2 g/dL (3.5-5.0); Calcium 8.4 mg/dL (8.4-10.2); Potassium 3.8 mmol/L (3.5-5.1); Total Bilirubin 0.5 mg/dL (0.2-1.3); Total Protein 6.6 g/dL (6.3-8.2)
[2023-04-03 06:07] LABS: Glucose,Whole Blood 116 mg/dL (70-110)
--- NOTE | 2023-04-03 06:32 | ED ---
SOB HPI - General Chief Complaint: Shortness of Breath Stated Complaint: Low O2 Time Seen by Provider: 04/03/23 04:38 Source: patient, EMS Mode of arrival: EMS - History of Present Illness Initial Comments: This patient is an 82-year-old woman who is sent from residential to have evaluation for what appeared to be dyspnea. The patient had been found to be hypoglycemic. When I interview the patient, she denies feeling short of breath. She states that her breathing feels okay. No chest pain. MD Complaint: shortness of breath -: unknown Severity scale (1-10): 0 Consistency: now resolved Improves With: other Worsens With: nothing Known History Of: diabetes Associated Symptoms: denies other symptoms - Related Data Home Medications Medication Instructions Recorded Confirmed Atorvastatin [Lipitor] 20 mg PO HS 07/15/14 12/10/22 Apixaban [Eliquis] 2.5 mg PO BID 01/28/21 12/10/22 Latanoprost Ophth [Xalatan 0.005%] 1 drop BOTH EYES HS 01/28/21 12/10/22 Montelukast [Singulair] 10 mg PO HS 01/28/21 12/10/22 Roflumilast [Daliresp] 500 mcg PO DAILY 01/28/21 12/10/22 Vit C/E/Zn/Coppr/Lutein/Zeaxan 1 cap PO BID 01/28/21 12/10/22 [Preservision Areds 2 Softgel] ALPRAZolam [Xanax] 0.25 mg PO DAILY PRN 09/03/21 12/10/22 Ascorbic Acid [Vitamin C] 1,000 mg PO DAILY 09/03/21 12/10/22 Ipratropium-Albuterol Nebulize 3 ml INHALATION RT-QID 09/03/21 12/10/22 [Duoneb 0.5 mg-3 mg/3 ml Soln] Sertraline [Zoloft] 50 mg PO TID 09/03/21 12/10/22 Amiodarone [Cordarone] 200 mg PO BID 10/18/21 12/10/22 Furosemide [Lasix] 40 mg PO DAILY 10/18/21 12/10/22 Melatonin 3 mg PO HS 10/18/21 12/10/22 Metoprolol Tartrate [Lopressor] 75 mg PO TID 10/18/21 12/10/22 Insulin Glargine,Hum.rec.anlog 46 units SQ HS 07/23/22 12/10/22 [Toujeo Solostar] Insulin Lispro [humaLOG Kwikpen] See Protocol SQ ACHS PRN 07/23/22 12/10/22 Azelastine HCl [Astepro Allergy] 1 spray NASAL BID PRN 12/10/22 12/10/22 Cyanocobalamin (Vitamin B-12) 1,000 mcg PO DAILY 12/10/22 12/10/22 [Vitamin B-12] DULoxetine HCL 20 mg PO DAILY 12/10/22 12/10/22 Ergocalciferol (Vitamin D2) 1,250 mcg PO Q30D 12/10/22 12/10/22 [Drisdol (50,000 Iu)] Previous Rx's Medication Instructions Recorded Cefpodoxime Proxetil [Vantin] 200 mg PO Q12HR 10 Days #20 tab 12/10/22 Cefpodoxime Proxetil [Vantin] 200 mg PO Q12HR 10 Days #20 tab 12/10/22 Cephalexin [Keflex] 500 mg PO Q6HR 7 Days #21 cap 03/04/23 Allergies Allergy/AdvReac Type Severity Reaction Status Date / Time diclofenac sodium Allergy Unknown Verified 03/30/23 23:02 [From Voltaren] adhesive tape AdvReac Rash/Hives Verified 03/30/23 23:02 Review of Systems ROS Statement: Those systems with pertinent positive or pertinent negative responses have been documented in the HPI. ROS Other: All systems not noted in ROS Statement are negative. Constitutional: Denies: fever, chills Respiratory: Denies: cough, dyspnea Cardiovascular: Denies: chest pain, palpitations Gastrointestinal: Denies: abdominal pain, vomiting, diarrhea Skin: Denies: rash Neurological: Denies: headache Past Medical History Past Medical History: Atrial Fibrillation, Cancer, Heart Failure, COPD, Diabetes Mellitus, Eye Disorder, Hyperlipidemia, Hypertension, Osteoarthritis (OA), Pneumonia, Renal Disease, Seizure Disorder, Sleep Apnea/CPAP/BIPAP Additional Past Medical History / Comment(s): IDDM type II, neuropathy bilateral feet, past hematuria, CKD stage III, nephrolithiasis, chronic respiratory failure/home oxygen 3L/[place] ATC, bronchitis, R breast cancer x2 with lumpectomies/radiation, RACHEL/cpap used, spinal stenosis/chronic back pain, IBS, seizure x2 as a teen and one in 2010, bilateral macular degeneration/very poor vision, current wound R lower leg/skin tear and is seen at [facility]/home nurse, [place] History of Any Multi-Drug Resistant Organisms: MRSA, VRE Date of last positivie culture/infection: 10/02/21 09/13/21 MRSA MDRO Source:: VRE URINE MRSA LEG Past Surgical History: Appendectomy, Breast Surgery, Cholecystectomy, Hysterect nely, Orthopedic Surgery Additional Past Surgical History / Comment(s): R breast lumpectomies x2, cervical laminectomy, R arm fracture/repair with bone graft from hip, R rotator cuff repair, L leg wound debridement, surgery for kidney stones, colonoscopies, bilateral cataract removals/lens implants. Past Anesthesia/Blood Transfusion Reactions: No Reported Reaction, Motion Sickness Past Psychological History: Anxiety, Depression Smoking Status: Former smoker Past Alcohol Use History: None Reported Past Drug Use History: None Reported - Past Family History Mother Additional Family Medical History / Comment(s): breast ca Father Family Medical History: Cancer Additional Family Medical History / Comment(s): Prostate cancer. General Exam General appearance: alert, in no apparent distress Head exam: Present: atraumatic, normocephalic Eye exam: Present: normal appearance. Absent: scleral icterus, conjunctival injection Neck exam: Present: normal inspection Respiratory exam: Present: normal lung sounds bilaterally, rales (Bilateral bases). Absent: respiratory distress, wheezes, rhonchi, stridor Cardiovascular Exam: Present: regular rate, irregular rhythm, normal heart sounds. Absent: systolic murmur, diastolic murmur, rubs, gallop GI/Abdominal exam: Present: soft. Absent: distended, tenderness, guarding, rebound, rigid, mass Extremities exam: Present: normal inspection, normal capillary refill. Absent: pedal edema, calf tenderness Back exam: Present: normal inspection Neurological exam: Present: alert Skin exam: Present: warm, dry, intact, normal color. Absent: rash Course Vital Signs 04/03/23 04/03/23 04/03/23 04:30 06:42 07:00 Temperature 98.1 F 97.8 F Pulse Rate 71 64 65 Respiratory 20 20 18 Rate Blood Pressure 133/76 148/78 148/68 O2 Sat by Pulse 97 98 98 Oximetry 04/03/23 04/03/23 04/03/23 08:00 09:00 10:06 Temperature 97.7 F Pulse Rate 78 68 78 Respiratory 16 18 18 Rate Blood Pressure 138/68 149/82 149/89 O2 Sat by Pulse 96 96 96 Oximetry Medical Decision Making - Medical Decision Making This patient is an 82-year-old woman sent here from [facility] to have evaluation for apparent dyspnea. Patient found to be hypoglycemic. She is given dextrose shortly after arrival and when I had seen the patient, she was denying complaints. The physical exam suggestive of mild CHF exacerbation. The patient did have chest x-ray which I interpreted as showing some vascular congestion and cardiomegaly. The patient is given dose of Lasix and does appear to be stable. She is observed in the emergency department with multiple stable Accu-Cheks, and in no respiratory distress. Patient stable for discharge back to [facility]. Was pt. sent in by a medical professional or institution (, PA, SORT WORKER, urgent care, hospital, or residential...) When possible be specific @ -[Patient sent from [facility] Did you speak to anyone other than the patient for history (EMS, parent, family, police, friend...)? What history was obtained from this source @ -[I did review the transfer paperwork from the residential Did you review nursing and triage notes (agree or disagree)? Why? @ -[I reviewed and agree with nursing and triage notes] Were old charts reviewed (outside hosp., previous admission, EMS record, old EKG, old radiological studies, urgent care reports/EKG's, residential records)? Report findings @ -[No old charts were reviewed] Differential Diagnosis (chest pain, altered mental status, abdominal pain women, abdominal pain men, vaginal bleeding, weakness, fever, dyspnea, syncope, headache, dizziness, GI bleed, back pain, seizure, CVA, palpatations, mental health, musculoskeletal)? @ -[Differential Dyspnea: Coronary syndrome, arrhythmia, tamponade, asthma, COPD, pulmonary embolism, pneumonia, pneumothorax, pulmonary effusion, anaphylaxis, diabetic ketoacidosis, flailed chest, pulmonary contusion, diaphragmatic rupture, anemia, neuromuscular, this is not meant to be an all-inclusive list. EKG interpreted by me (3pts min.). @ -[As above] X-rays interpreted by me (1pt min.). @ -[As above CT interpreted by me (1pt min.). @ -[None done] U/S interpreted by me (1pt. min.). @ -[None done] What testing was considered but not performed or refused? (CT, X-rays, U/S, labs)? Why? @ -[None] What meds were considered but not given or refused? Why? @ -[None] Did you discuss the management of the patient with other professionals (professionals i.e. Dr., PA, SORT WORKER, lab, RT, psych nurse, social science professor, instructor technical training, teacher, security control room officer, assistant case manager)? Give summary @ -[No] Was smoking cessation discussed for >3mins.? @ -[No] Was critical care preformed (if so, how long)? @ -[No] Were there social determinants of health that impacted care today? How? (Homeles sness, low income, unemployed, alcoholism, drug addiction, transportation, low edu. Level, literacy, decrease access to med. care, assisted, rehab)? @ -[No] Was there de-escalation of care discussed even if they declined (Discuss DNR or withdrawal of care, Hospice)? DNR status @ -[No] What co-morbidities impacted this encounter? (DM, HTN, Smoking, COPD, CAD, Cancer, CVA, ARF, Chemo, Hep., AIDS, mental health diagnosis, sleep apnea, morbid obesity)? @ -[Diabetes Was patient admitted / discharged? Hospital course, mention meds given and route, prescriptions, significant lab abnormalities, going to OR and other pertinent info. @ -[The patient is discharged back to the residential Undiagnosed new problem with uncertain prognosis? @ -[No] Drug Therapy requiring intensive monitoring for toxicity (Heparin, Nitro, Insulin, Cardizem)? @ -[No] Were any procedures done? @ -[No] Diagnosis/symptom? @ -[1. Hypoglycemia, acute 2. Mild CHF exacerbation, acute Acute, or Chronic, or Acute on Chronic? @ -[default] Uncomplicated (without systemic symptoms) or Complicated (systemic symptoms)? @ -[Uncomplicated Side effects of treatment? @ -[No] Exacerbation, Progression, or Severe Exacerbation? @ -[No] Poses a threat to life or bodily function? How? (Chest pain, [place], AL, pneumonia, PE, COPD, DKA, ARF, appy, cholecystitis, CVA, Diverticulitis, Homicidal, Suicidal, threat to staff... and all critical care pts) @ -[No] - Lab Data Result diagrams: 04/03/23 05:39 04/03/23 05:39 Lab Results 04/03/23 04/03/23 04/03/23 Range/Units 04:56 05:39 05:39 WBC 10.3 (3.8-10.6) k/uL RBC 3.68 L (3.80-5.40) m/uL Hgb 11.0 L (11.4-16.0) gm/dL Hct 35.7 (34.0-46.0) % MCV 97.0 (80.0-100.0) fL MCH 29.9 (25.0-35.0) pg MCHC 30.9 L (31.0-37.0) g/dL RDW 15.9 H (11.5-15.5) % Plt Count 223 (150-450) k/uL MPV 7.7 Neutrophils % 76 % Lymphocytes % 13 % Monocytes % 7 % Eosinophils % 1 % Basophils % 0 % Neutrophils # 7.8 H (1.3-7.7) k/uL Lymphocytes # 1.4 (1.0-4.8) k/uL Monocytes # 0.7 (0-1.0) k/uL Eosinophils # 0.1 (0-0.7) k/uL Basophils # 0.0 (0-0.2) k/uL Hypochromasia Slight Macrocytosis Slight PT 11.8 (9.0-12.0) sec INR 1.1 (<1.2) APTT 29.9 (22.0-30.0) sec VBG pH (7.31-7.41) VBG pCO2 (37-51) mmHg VBG HCO3 (24-28) mmol/L Sodium (137-145) mmol/L Potassium (3.5-5.1) mmol/L Chloride (98-107) mmol/L Carbon Dioxide (22-30) mmol/L Anion Gap mmol/L BUN (7-17) mg/dL Creatinine (0.52-1.04) mg/dL Est GFR (CKD-EPI)AfAm (>60 ml/min/1.73 sqM) Est GFR (CKD-EPI)NonAf (>60 ml/min/1.73 sqM) Glucose (74-99) mg/dL POC Glucose (mg/dL) 51 L (70-110) mg/dL POC Glu Assistant [employer] ID Jorge Larsen Plasma Lactic Acid Hema (0.7-2.0) mmol/L Calcium (8.4-10.2) mg/dL Total Bilirubin (0.2-1.3) mg/dL AST (14-36) U/L ALT (4-34) U/L Alkaline Phosphatase (38-126) U/L Troponin I (0.000-0.034) ng/mL Total Protein (6.3-8.2) g/dL Albumin (3.5-5.0) g/dL 04/03/23 04/03/23 04/03/23 Range/Units 05:39 05:39 05:39 WBC (3.8-10.6) k/uL RBC (3.80-5.40) m/uL Hgb (11.4-16.0) gm/dL Hct (34.0-46.0) % MCV (80.0-100.0) fL MCH (25.0-35.0) pg MCHC (31.0-37.0) g/dL RDW (11.5-15.5) % Plt Count (150-450) k/uL MPV Neutrophils % % Lymphocytes % % Monocytes % % Eosinophils % % Basophils % % Neutrophils # (1.3-7.7) k/uL Lymphocytes # (1.0-4.8) k/uL Monocytes # (0-1.0) k/uL Eosinophils # (0-0.7) k/uL Basophils # (0-0.2) k/uL Hypochromasia Macrocytosis PT (9.0-12.0) sec INR (<1.2) APTT (22.0-30.0) sec VBG pH (7.31-7.41) VBG pCO2 (37-51) mmHg VBG HCO3 (24-28) mmol/L Sodium 137 (137-145) mmol/L Potassium 3.8 (3.5-5.1) mmol/L Chloride 96 L (98-107) mmol/L Carbon Dioxide 32 H (22-30) mmol/L Anion Gap 9 mmol/L BUN 46 H (7-17) mg/dL Creatinine 1.93 H (0.52-1.04) mg/dL Est GFR (CKD-EPI)AfAm 28 (>60 ml/min/1.73 sqM) Est GFR (CKD-EPI)NonAf 24 (>60 ml/min/1.73 sqM) Glucose 39 L* (74-99) mg/dL POC Glucose (mg/dL) (70-110) mg/dL POC Glu Assistant [employer] ID Plasma Lactic Acid Hema 0.8 (0.7-2.0) mmol/L Calcium 8.4 (8.4-10.2) mg/dL Total Bilirubin 0.5 (0.2-1.3) mg/dL AST 94 H (14-36) U/L ALT 39 H (4-34) U/L Alkaline Phosphatase 229 H (38-126) U/L Troponin I 0.017 (0.000-0.034) ng/mL Total Protein 6.6 (6.3-8.2) g/dL Albumin 3.2 L (3.5-5.0) g/dL 04/03/23 04/03/23 04/03/23 Range/Units 05:55 06:05 07:26 WBC (3.8-10.6) k/uL RBC (3.80-5.40) m/uL Hgb (11.4-16.0) gm/dL Hct (34.0-46.0) % MCV (80.0-100.0) fL MCH (25.0-35.0) pg MCHC (31.0-37.0) g/dL RDW (11.5-15.5) % Plt Count (150-450) k/uL MPV Neutrophils % % Lymphocytes % % Monocytes % % Eosinophils % % Basophils % % Neutrophils # (1.3-7.7) k/uL Lymphocytes # (1.0-4.8) k/uL Monocytes # (0-1.0) k/uL Eosinophils # (0-0.7) k/uL Basophils # (0-0.2) k/uL Hypochromasia Macrocytosis PT (9.0-12.0) sec INR (<1.2) APTT (22.0-30.0) sec VBG pH 7.36 (7.31-7.41) VBG pCO2 61 H (37-51) mmHg VBG HCO3 33 H (24-28) mmol/L Sodium (137-145) mmol/L Potassium (3.5-5.1) mmol/L Chloride (98-107) mmol/L Carbon Dioxide (22-30) mmol/L Anion Gap mmol/L BUN (7-17) mg/dL Creatinine (0.52-1.04) mg/dL Est GFR (CKD-EPI)AfAm (>60 ml/min/1.73 sqM) Est GFR (CKD-EPI)NonAf (>60 ml/min/1.73 sqM) Glucose (74-99) mg/dL POC Glucose (mg/dL) 116 H 104 (70-110) mg/dL POC Glu Assistant [employer] ID Jorge Larsen, Mike Plasma Lactic Acid Hema (0.7-2.0) mmol/L Calcium (8.4-10.2) mg/dL Total Bilirubin (0.2-1.3) mg/dL AST (14-36) U/L ALT (4-34) U/L Alkaline Phosphatase (38-126) U/L Troponin I (0.000-0.034) ng/mL Total Protein (6.3-8.2) g/dL Albumin (3.5-5.0) g/dL 04/03/23 Range/Units 09:11 WBC (3.8-10.6) k/uL RBC (3.80-5.40) m/uL Hgb (11.4-16.0) gm/dL Hct (34.0-46.0) % MCV (80.0-100.0) fL MCH (25.0-35.0) pg MCHC (31.0-37.0) g/dL RDW (11.5-15.5) % Plt Count (150-450) k/uL MPV Neutrophils % % Lymphocytes % % Monocytes % % Eosinophils % % Basophils % % Neutrophils # (1.3-7.7) k/uL Lymphocytes # (1.0-4.8) k/uL Monocytes # (0-1.0) k/uL Eosinophils # (0-0.7) k/uL Basophils # (0-0.2) k/uL Hypochromasia Macrocytosis PT (9.0-12.0) sec INR (<1.2) APTT (22.0-30.0) sec VBG pH (7.31-7.41) VBG pCO2 (37-51) mmHg VBG HCO3 (24-28) mmol/L Sodium (137-145) mmol/L Potassium (3.5-5.1) mmol/L Chloride (98-107) mmol/L Carbon Dioxide (22-30) mmol/L Anion Gap mmol/L BUN (7-17) mg/dL Creatinine (0.52-1.04) mg/dL Est GFR (CKD-EPI)AfAm (>60 ml/min/1.73 sqM) Est GFR (CKD-EPI)NonAf (>60 ml/min/1.73 sqM) Glucose (74-99) mg/dL POC Glucose (mg/dL) 140 H (70-110) mg/dL POC Glu Assistant [employer] ID Mike Bueno Plasma Lactic Acid Hema (0.7-2.0) mmol/L Calcium (8.4-10.2) mg/dL Total Bilirubin (0.2-1.3) mg/dL AST (14-36) U/L ALT (4-34) U/L Alkaline Phosphatase (38-126) U/L Troponin I (0.000-0.034) ng/mL Total Protein (6.3-8.2) g/dL Albumin (3.5-5.0) g/dL - EKG Data -: EKG Interpreted by De EKG shows normal: axis (After axis deviation), intervals (Normal), QRS complexes (Decreased QRS amplitude) Rate: normal Interpretation: other (Underlying rhythm appears to be atrial fibrillation with a rate proximally 76 bpm. possible old anteroseptal infarct) Disposition Clinical Impression: Hypoglycemia Disposition: HOME SELF-CARE Condition: Good Instructions (If sedation given, give patient instructions): Hypoglycemia in a Person with Diabetes (ED) Is patient prescribed a controlled substance at d/c from ED?: No Referrals: Stu Ring MD [Primary Care Provider] - 1-2 days
[2023-04-03 06:33] LABS: VBG PH 7.36 (7.31-7.41)
[2023-04-03 07:28] LABS: Glucose,Whole Blood 104 mg/dL (70-110)
[2023-04-03 07:34] VITALS: RESP 18
--- NOTE | 2023-04-03 07:42 | XR ---
EXAMINATION TYPE: XR chest 2V DATE OF EXAM: 04/03/2023 6:41 AM COMPARISON: Chest radiographs from 03/31/2023 TECHNIQUE: XR chest 2V Frontal and lateral views of the chest. CLINICAL INDICATION:Female, 82 years old with history of altered mental status; FINDINGS: Lungs/Pleura: Multifocal airspace opacities. No evidence of pneumothorax or pleural effusion. Pulmonary vascularity: Unremarkable. Heart/mediastinum: Cardiomediastinal silhouette is enlarged and stable. Musculoskeletal: No acute osseous pathology. IMPRESSION: Cardiomegaly and mild pulmonary vascular congestion. Correlate with BNP for congestive heart failure.
[2023-04-03] MEDS ORDERED: FUROSEMIDE 10 MG/ML 4 ML VIAL IV STA (07:47)
[2023-04-03 09:15] LABS: Glucose,Whole Blood 140 mg/dL (70-110)
[2023-04-03 10:07] VITALS: BP 149/89; PULSE 78; TEMP 97.7
== END 2023-04-03 10:07 | disposition home or self-care (01) ==
LOC: EC 04:28
DX: E11.649 Type 2 diabetes mellitus with hypoglycemia without coma (principal); I13.0 Hypertensive heart and chronic kidney disease with heart failure and stage 1 through stage 4 chronic kidney disease, or unspecified chronic kidney disease; I50.9 Heart failure, unspecified; E11.22 Type 2 diabetes mellitus with diabetic chronic kidney disease; N18.30 Chronic kidney disease, stage 3 unspecified; E11.36 Type 2 diabetes mellitus with diabetic cataract; E11.40 Type 2 diabetes mellitus with diabetic neuropathy, unspecified; J44.9 Chronic obstructive pulmonary disease, unspecified; E78.5 Hyperlipidemia, unspecified; F32.A Depression, unspecified; F41.9 Anxiety disorder, unspecified; G40.909 Epilepsy, unspecified, not intractable, without status epilepticus; I48.91 Unspecified atrial fibrillation; M19.90 Unspecified osteoarthritis, unspecified site; Z79.4 Long term (current) use of insulin; Z79.01 Long term (current) use of anticoagulants; Z79.899 Other long term (current) drug therapy; Z91.09 Other allergy status, other than to drugs and biological substances; Z88.6 Allergy status to analgesic agent; Z87.891 Personal history of nicotine dependence; Z90.49 Acquired absence of other specified parts of digestive tract
CPT/HCPCS: 36415; 93005; 80053; 82803; 83605; 84484; 85025; 85610; 85730; 71046; 99285; 96374; 96375; J1940

== ENCOUNTER 2023-06-06 10:00 | Inpatient (IN) | payer MEDICARE, BC ==
[2023-06-06] MEDS ORDERED: IPRATROPIUM-ALBUTEROL 3 ML NEB INHALATION STA (10:09)
[2023-06-06] MEDS ORDERED: methylPREDNISolone SOD SUCCI 125 MG/2 ML VIAL IV STA (10:09)
--- NOTE | 2023-06-06 10:12 | ED ---
General Adult HPI - General Stated complaint: SOB Time Seen by Provider: 06/06/23 10:05 Source: RN notes reviewed, old records reviewed - History of Present Illness Initial comments: This is an 82-year-old female presents emergency Department complaining of difficulty breathing the last 2 weeks per patient states when she gets up to do anything the difficulty breathing gets worse. Patient states last night he got considerably worse and that is when she called EMS this morning when it didn't show any improvement. Patient states she took 2 breathing treatments and seemed to help her patient states she does have a history of COPD and a distant history of congestive heart. Patient denies any chest pain or palpitations. Patient denies any significant cough. Patient denies any lightheadedness or dizziness. Patient denies abdominal pain or back pain. Patient denies any vomiting or diarrhea. Patient states she has a wound on the left leg that is being taken care of. Patient states it was a skin tear just taken a long time to heal. - Related Data Home Medications Medication Instructions Recorded Confirmed Atorvastatin [Lipitor] 20 mg PO HS 07/15/14 12/10/22 Apixaban [Eliquis] 2.5 mg PO BID 01/28/21 12/10/22 Latanoprost Ophth [Xalatan 0.005%] 1 drop BOTH EYES HS 01/28/21 12/10/22 Montelukast [Singulair] 10 mg PO HS 01/28/21 12/10/22 Roflumilast [Daliresp] 500 mcg PO DAILY 01/28/21 12/10/22 Vit C/E/Zn/Coppr/Lutein/Zeaxan 1 cap PO BID 01/28/21 12/10/22 [Preservision Areds 2 Softgel] ALPRAZolam [Xanax] 0.25 mg PO DAILY PRN 09/03/21 12/10/22 Ascorbic Acid [Vitamin C] 1,000 mg PO DAILY 09/03/21 12/10/22 Ipratropium-Albuterol Nebulize 3 ml INHALATION RT-QID 09/03/21 12/10/22 [Duoneb 0.5 mg-3 mg/3 ml Soln] Sertraline [Zoloft] 50 mg PO TID 09/03/21 12/10/22 Amiodarone [Cordarone] 200 mg PO BID 10/18/21 12/10/22 Furosemide [Lasix] 40 mg PO DAILY 10/18/21 12/10/22 Melatonin 3 mg PO HS 10/18/21 12/10/22 Metoprolol Tartrate [Lopressor] 75 mg PO TID 10/18/21 12/10/22 Insulin Glargine,Hum.rec.anlog 46 units SQ HS 07/23/22 12/10/22 [Toujeo Solostar] Insulin Lispro [humaLOG Kwikpen] See Protocol SQ ACHS PRN 07/23/22 12/10/22 Azelastine HCl [Astepro Allergy] 1 spray NASAL BID PRN 12/10/22 12/10/22 Cyanocobalamin (Vitamin B-12) 1,000 mcg PO DAILY 12/10/22 12/10/22 [Vitamin B-12] DULoxetine HCL 20 mg PO DAILY 12/10/22 12/10/22 Ergocalciferol (Vitamin D2) 1,250 mcg PO Q30D 12/10/22 12/10/22 [Drisdol (50,000 Iu)] Previous Rx's Medication Instructions Recorded Cefpodoxime Proxetil [Vantin] 200 mg PO Q12HR 10 Days #20 tab 12/10/22 Cefpodoxime Proxetil [Vantin] 200 mg PO Q12HR 10 Days #20 tab 12/10/22 Cephalexin [Keflex] 500 mg PO Q6HR 7 Days #21 cap 03/04/23 Allergies Allergy/AdvReac Type Severity Reaction Status Date / Time diclofenac sodium Allergy Unknown Verified 06/06/23 13:19 [From Voltaren] adhesive tape AdvReac Rash/Hives Verified 06/06/23 13:19 Review of Systems ROS Statement: Those systems with pertinent positive or pertinent negative responses have been documented in the HPI. ROS Other: All systems not noted in ROS Statement are negative. Past Medical History Past Medical History: Atrial Fibrillation, Cancer, Heart Failure, COPD, Diabetes Mellitus, Eye Disorder, Hyperlipidemia, Hypertension, Osteoarthritis (OA), Pneumonia, Renal Disease, Seizure Disorder, Sleep Apnea/CPAP/BIPAP Additional Past Medical History / Comment(s): IDDM type II, neuropathy bilateral feet, past hematuria, CKD stage III, nephrolithiasis, chronic respiratory failure/home oxygen 3L/[place] ATC, bronchitis, R breast cancer x2 with lumpectomies/radiation, RACHEL/cpap used, spinal stenosis/chronic back pain, IBS, seizure x2 as a teen and one in 2010, bilateral macular degeneration/very poor vision, current wound R lower leg/skin tear and is seen at [facility]/home nurse, [place] History of Any Multi-Drug Resistant Organisms: MRSA, VRE Date of last positivie culture/infection: 10/02/21 09/13/21 MRSA MDRO Source:: VRE URINE MRSA LEG Past Surgical History: Appendectomy, Breast Surgery, Cholecystectomy, Hyst erectomy, Orthopedic Surgery Additional Past Surgical History / Comment(s): R breast lumpectomies x2, cervical laminectomy, R arm fracture/repair with bone graft from hip, R rotator cuff repair, L leg wound debridement, surgery for kidney stones, colonoscopies, bilateral cataract removals/lens implants. Past Anesthesia/Blood Transfusion Reactions: No Reported Reaction, Motion Sickness Past Psychological History: Anxiety, Depression Smoking Status: Former smoker Past Alcohol Use History: None Reported Past Drug Use History: None Reported - Past Family History Mother Additional Family Medical History / Comment(s): breast ca Father Family Medical History: Cancer Additional Family Medical History / Comment(s): Prostate cancer. General Exam - General Exam Comments Initial Comments: GENERAL: Patient is well-developed and well-nourished. Patient is nontoxic and well- hydrated and is in mild distress. ENT: Neck is soft and supple. No significant lymphadenopathy is noted. Oropharynx is clear. Moist mucous membranes. Neck has full range of motion without elic iting any pain. EYES: The sclera were anicteric and conjunctiva were pink and moist. Extraocular movements were intact and pupils were equal round and reactive to light. Eyelids were unremarkable. PULMONARY: Patient has diminished breath sounds and some crackles in both bases CARDIOVASCULAR: There is a regular rate and rhythm without any murmurs gallops or rubs. ABDOMEN: Soft and nontender with normal bowel sounds. SKIN: Skin is clear with no lesions or rashes and otherwise unremarkable. NEUROLOGIC: Patient is alert and oriented x3. Cranial nerves II through XII are grossly intact. Motor and sensory are also intact. Normal speech, volume and content. Symmetrical smile. MUSCULOSKELETAL: Normal extremities with adequate strength and full range of motion. 1+ edema LYMPHATICS: No significant lymphadenopathy is noted PSYCHIATRIC: Normal psychiatric evaluation. Course Vital Signs 06/06/23 06/06/23 06/06/23 10:00 10:45 10:54 Temperature 97.5 F L Pulse Rate 63 66 64 Respiratory 22 Rate Blood Pressure 104/58 O2 Sat by Pulse 98 Oximetry 06/06/23 11:10 Temperature Pulse Rate Respiratory Rate Blood Pressure O2 Sat by Pulse 98 Oximetry Medical Decision Making - Medical Decision Making EKG was interpreted by myself shows atrial fibrillation 71 bpm QRS is 82 QT interval 470 QTC is 429. Patient's EKG is poor quality and does not appear there is any ST segment elevation Was pt. sent in by a medical professional or institution (, PA, WIRER, urgent care, hospital, or snf...) When possible be specific @ -No Did you speak to anyone other than the patient for history (EMS, parent, family, police, friend...)? What history was obtained from this source @ -No Did you review nursing and triage notes (agree or disagree)? Why? @ -I reviewed and agree with nursing and triage notes Were old charts reviewed (outside hosp., previous admission, EMS record, old EKG, old radiological studies, urgent care reports/EKG's, snf records)? Report findings @ -I reviewed prior lab work up diarrhea logical studies on this patient Differential Diagnosis (chest pain, altered mental status, abdominal pain women, abdominal pain men, vaginal bleeding, weakness, fever, dyspnea, syncope, headache, dizziness, GI bleed, back pain, seizure, CVA, palpatations, mental health, musculoskeletal)? @ -Differential Dyspnea: Coronary syndrome, arrhythmia, tamponade, asthma, COPD, pulmonary embolism, pneumonia, pneumothorax, pulmonary effusion, anaphylaxis, diabetic ketoacidosis, flailed chest, pulmonary contusion, diaphragmatic rupture, anemia, neuromuscular, this is not meant to be an all-inclusive list. EKG interpreted by me (3pts min.). @ -As above X-rays interpreted by me (1pt min.). @ -Chest x-ray shows acute pulmonary edema CT interpreted by me (1pt min.). @ -None done U/S interpreted by me (1pt. min.). @ -None done What testing was considered but not performed or refused? (CT, X-rays, U/S, labs)? Why? @ -None What meds were considered but not given or refused? Why? @ -None Did you discuss the management of the patient with other professionals (professionals i.e. , PA, WIRER, lab, RT, psych nurse, manager social work, business specialist, teacher, homicide squad commanding officer, logistic manager)? Give summary @ -I spoke with Dr. Marin he agreed to admit the patient and the patient I consulted cardiology Was smoking cessation discussed for >3mins.? @ -No Was critical care preformed (if so, how long)? @ -No Were there social determinants of health that impacted care today? How? (Homelessness, low income, unemployed, alcoholism, drug addiction, transportation, low edu. Level, literacy, decrease access to med. care, residential, rehab)? @ -No Was there de-escalation of care discussed even if they declined (Discuss DNR or withdrawal of care, Hospice)? DNR status @ -No What co-morbidities impacted this encounter? (DM, HTN, Smoking, COPD, CAD, Cancer, CVA, ARF, Chemo, Hep., AIDS, mental health diagnosis, sleep apnea, morbid obesity)? @ -None Was patient admitted / discharged? Hospital course, mention meds given and route, prescriptions, significant lab abnormalities, going to OR and other pertinent info. @ -Patient had diminished breath sounds were initially was given a breathing treatment and steroids but patient's x-ray showed pulmonary edema so she was also given some Lasix. No nitro patient was given at this time because her bl ood pressure was somewhat low. Patient will be admitted to Dr. Marin who agreed to admit the patient. Patient also have a cardiology consult Undiagnosed new problem with uncertain prognosis? @ -No Drug Therapy requiring intensive monitoring for toxicity (Heparin, Nitro, Insulin, Cardizem)? @ -No Were any procedures done? @ -No Diagnosis/symptom? @ -Acute pulmonary edema Acute, or Chronic, or Acute on Chronic? @ -Acute Uncomplicated (without systemic symptoms) or Complicated (systemic symptoms)? @ -Complicated Side effects of treatment? @ -No Exacerbation, Progression, or Severe Exacerbation? @ -No Poses a threat to life or bodily function? How? (Chest pain, USA, MS, pneumonia, PE, COPD, DKA, ARF, appy, cholecystitis, CVA, Diverticulitis, Homicidal, Suicidal, threat to staff... and all critical care pts) @ -Yes this could lead to hypoxia and an organ dysfunction - Lab Data Result diagrams: 06/06/23 10:14 06/06/23 10:14 Lab Results 06/06/23 06/06/23 06/06/23 Range/Units 10:14 10:14 10:14 WBC 11.5 H (3.8-10.6) k/uL RBC 3.26 L (3.80-5.40) m/uL Hgb 10.5 L (11.4-16.0) gm/dL Hct 33.2 L (34.0-46.0) % MCV 101.7 H (80.0-100.0) fL MCH 32.3 (25.0-35.0) pg MCHC 31.7 (31.0-37.0) g/dL RDW 17.1 H (11.5-15.5) % Plt Count 244 (150-450) k/uL MPV 8.1 Neutrophils % 73 % Lymphocytes % 13 % Monocytes % 7 % Eosinophils % 4 % Basophils % 1 % Neutrophils # 8.4 H (1.3-7.7) k/uL Lymphocytes # 1.5 (1.0-4.8) k/uL Monocytes # 0.8 (0-1.0) k/uL Eosinophils # 0.5 (0-0.7) k/uL Basophils # 0.1 (0-0.2) k/uL Hypochromasia Marked Anisocytosis Slight Macrocytosis Moderate PT 11.4 (9.0-12.0) sec INR 1.1 (<1.2) APTT 27.8 (22.0-30.0) sec Sodium 140 (137-145) mmol/L Potassium 5.1 (3.5-5.1) mmol/L Chloride 107 (98-107) mmol/L Carbon Dioxide 23 (22-30) mmol/L Anion Gap 10 mmol/L BUN 65 H (7-17) mg/dL Creatinine 2.73 H (0.52-1.04) mg/dL Est GFR (CKD-EPI)AfAm 18 (>60 ml/min/1.73 sqM) Est GFR (CKD-EPI)NonAf 16 (>60 ml/min/1.73 sqM) Glucose 95 (74-99) mg/dL Plasma Lactic Acid Hema (0.7-2.0) mmol/L Calcium 8.0 L (8.4-10.2) mg/dL Magnesium 2.1 (1.6-2.3) mg/dL Total Bilirubin 0.6 (0.2-1.3) mg/dL AST 99 H (14-36) U/L ALT 40 H (4-34) U/L Alkaline Phosphatase 328 H (38-126) U/L Troponin I (0.000-0.034) ng/mL NT-Pro-B Natriuret Pep pg/mL Total Protein 7.0 (6.3-8.2) g/dL Albumin 3.2 L (3.5-5.0) g/dL 06/06/23 06/06/23 06/06/23 Range/Units 10:14 10:14 10:14 WBC (3.8-10.6) k/uL RBC (3.80-5.40) m/uL Hgb (11.4-16.0) gm/dL Hct (34.0-46.0) % MCV (80.0-100.0) fL MCH (25.0-35.0) pg MCHC (31.0-37.0) g/dL RDW (11.5-15.5) % Plt Count (150-450) k/uL MPV Neutrophils % % Lymphocytes % % Monocytes % % Eosinophils % % Basophils % % Neutrophils # (1.3-7.7) k/uL Lymphocytes # (1.0-4.8) k/uL Monocytes # (0-1.0) k/uL Eosinophils # (0-0.7) k/uL Basophils # (0-0.2) k/uL Hypochromasia Anisocytosis Macrocytosis PT (9.0-12.0) sec INR (<1.2) APTT (22.0-30.0) sec Sodium (137-145) mmol/L Potassium (3.5-5.1) mmol/L Chloride (98-107) mmol/L Carbon Dioxide (22-30) mmol/L Anion Gap mmol/L BUN (7-17) mg/dL Creatinine (0.52-1.04) mg/dL Est GFR (CKD-EPI)AfAm (>60 ml/min/1.73 sqM) Est GFR (CKD-EPI)NonAf (>60 ml/min/1.73 sqM) Glucose (74-99) mg/dL Plasma Lactic Acid Hema 1.1 (0.7-2.0) mmol/L Calcium (8.4-10.2) mg/dL Magnesium (1.6-2.3) mg/dL Total Bilirubin (0.2-1.3) mg/dL AST (14-36) U/L ALT (4-34) U/L Alkaline Phosphatase (38-126) U/L Troponin I <0.012 (0.000-0.034) ng/mL NT-Pro-B Natriuret Pep 3530 pg/mL Total Protein (6.3-8.2) g/dL Albumin (3.5-5.0) g/dL Disposition Clinical Impression: Acute pulmonary edema Disposition: ADMITTED IP TO THIS [facility] Time of Disposition: 12:37
--- NOTE | 2023-06-06 10:32 | XR ---
EXAMINATION TYPE: XR chest 2V DATE OF EXAM: 06/06/2023 10:27 AM COMPARISON: Chest radiographs from 04/03/2023 TECHNIQUE: XR chest 2V Frontal and lateral views of the chest. CLINICAL INDICATION:Female, 82 years old with history of difficulty breathing; FINDINGS: Lungs/Pleura: Blunting of the left costophrenic angle. No focal consolidation or pneumothorax. Pulmonary vascularity: Pulmonary vascular congestion. Heart/mediastinum: Cardiomediastinal silhouette is enlarged and stable. Musculoskeletal: No acute osseous pathology. Bilateral shoulder arthropathy. Orthopedic anchors withi n the right humeral head. IMPRESSION: Cardiomegaly with pulmonary vascular congestion and trace left pleural effusion. This suggests CHF ex acerbation. Correlate with BNP.
[2023-06-06 10:40] LABS: Anisocytosis Slight; Basophils # (A) 0.1 k/uL (0-0.2); Basophils % (A) 1 %; Eosinophils # (A) 0.5 k/uL (0-0.7); Eosinophils % (A) 4 %; HCT 33.2 % (34.0-46.0); HGB 10.5 gm/dL (11.4-16.0); Hypochromasia Marked; Lymphocytes # (A) 1.5 k/uL (1.0-4.8); Lymphocytes % (A) 13 %; MCH 32.3 pg (25.0-35.0); MCHC 31.7 g/dL (31.0-37.0); MCV 101.7 fL (80.0-100.0); Macrocytosis Moderate; Mean Platelet Volume 8.1; Monocytes # (A) 0.8 k/uL (0-1.0); Monocytes % (A) 7 %; Neutrophils # (A) 8.4 k/uL (1.3-7.7); Neutrophils % (A) 73 %; Platelet Count 244 k/uL (150-450); RBC 3.26 m/uL (3.80-5.40); RDW 17.1 % (11.5-15.5); WBC 11.5 k/uL (3.8-10.6)
[2023-06-06 10:49] LABS: INR 1.1 (<1.2); Partial Thromboplastin Time 27.8 sec (22.0-30.0); Prothrombin Time 11.4 sec (9.0-12.0)
[2023-06-06 10:59] LABS: ALT 40 U/L (4-34); AST 99 U/L (14-36); African American GFR (CKD) 18 (>60 ml/min/1.73 sqM); Albumin 3.2 g/dL (3.5-5.0); Alkaline Phosphatase 328 U/L (38-126); Anion Gap 10 mmol/L; Blood Urea Nitrogen 65 mg/dL (7-17); Carbon Dioxide 23 mmol/L (22-30); Chloride 107 mmol/L (98-107); Glucose 95 mg/dL (74-99); Magnesium 2.1 mg/dL (1.6-2.3); Non-African American GFR(CKD) 16 (>60 ml/min/1.73 sqM); Potassium 5.1 mmol/L (3.5-5.1); Sodium 140 mmol/L (137-145); Total Bilirubin 0.6 mg/dL (0.2-1.3)
[2023-06-06] MEDS ORDERED: FUROSEMIDE 10 MG/ML 4 ML VIAL IV STA (11:44)
[2023-06-06] MEDS ORDERED: FUROSEMIDE 10 MG/ML 10 ML VIAL IV STA (12:02)
[2023-06-06] MEDS ORDERED: FUROSEMIDE 10 MG/ML 4 ML VIAL IV SCH (12:45)
[2023-06-06] MEDS ORDERED: IPRATROPIUM-ALBUTEROL 3 ML NEB INHALATION PRN (14:31)
[2023-06-06] MEDS ORDERED: NA PHOS,M-B/NA PHOS,DI-BA 133 ML ENEMA RECTAL PRN (15:06)
[2023-06-06] MEDS ORDERED: NALOXONE 0.4 MG/ML 1 ML VIAL IV PRN (15:06)
[2023-06-06] MEDS ORDERED: ACETAMINOPHEN TAB 325 MG TAB PO PRN (15:06)
[2023-06-06] MEDS ORDERED: ONDANSETRON 4 MG/2 ML VIAL IVP PRN (15:06)
[2023-06-06] MEDS ORDERED: CALCIUM CARBONATE 500 MG CHEWABLE PO PRN (15:06)
[2023-06-06] MEDS: IPRATROPIUM-ALBUTEROL 3 ML NEB INHALATION SCH ×2 (15:20→20:25)
[2023-06-06] MEDS ORDERED: IPRATROPIUM-ALBUTEROL 3 ML NEB INHALATION SCH (16:00)
[2023-06-06] MEDS: METOPROLOL TARTRATE 25 MG TAB PO SCH ×2 (16:35→21:12)
--- NOTE | 2023-06-06 19:49 | P.HPIM ---
History of Present Illness H&P Date: 06/06/23 Chief Complaint: Short of breath This is a pleasant 82-year-old patient who follows with visiting physicians. 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 Baseline patient is short of breath but more so in the last 10 days. Wheezing. No cough no fever no chills. Appetite is fair. Has chronic lower extremity edema. Normally sleeps using one pillow. No chest pain. Uses a wheelchair to get about. Review of systems: GEN.: Tired EYES: None HEENT: None NECK: None RESPIRATORY: As above CARDIOVASCULAR: None GASTROINTESTINAL: None GENITOURINARY: None MUSCULOSKELETAL: Some joint pain LYMPHATICS: None HEMATOLOGICAL: None PSYCHIATRY: None NEUROLOGICAL: Wheelchair to get about Past medical history to include: Atrial fibrillation, CHF, COPD, diabetes, hypertension, hyperlipidemia, ost eoarthritis, seizure disorder, obstructive sleep apnea, peripheral neuropathy, CK D stage III, kidney stones, home oxygen 3 L, right breast cancer 2 with lumpectomy radiation, obstructive sleep apnea and uses CPAP, spinal stenosis 20 low back pain, IBS, seizures 2 as a teen and one in 2009. Macular by bilateral macular degeneration. Right lower extremity skin tear follows at the wound care center. Anxiety depression Social history: At [facility] in an apartment. Occasional walker mainly electric wheelchair. Wound care. Home oxygen. Smoked for 50 years stopped in 2006. No alcohol. Physical examination: VITAL SIGNS: 97.5, 63, 22, 104/58, 98% on 4 L GENERAL: BMI 36.6, sitting up in a chair awake short of breath. EYES: Pupils equal. Conjunctiva normal. HEENT: External appearance of nose and ears normal, oral cavity grossly normal. NECK: JVD unable to assess; masses not palpable. HEART: First and second heart sounds are normal; so edema. LUNGS: Respiratory rate increased; but able to speak in full sentences, diminished breath sounds or wheezing. ABDOMEN: Soft, nontender, liver spleen not palpable, no masses palpable. PSYCH: Alert and oriented x3; mood and affect normal. MUSCULOSKELETAL:No Clubbing/cyanosis;muscles-grossly intact. OA NEUROLOGICAL: Cranial nerves grossly intact; no facial asymmetry, power and sensation grossly intact. LYMPHATICS: No lymph nodes palpable in the axilla and neck INVESTIGATIONS, reviewed in the clinical context: White count 11.5 hemoglobin 10.5 platelets 244 sodium 140 potassium 5.1 BUN 65 creatinine 2.73 AST 99 ALT 40 alkaline phosphate 328 Troponin I than 0.012 proBNP 3530 EKG tracing personally reviewed by me-atrial fibrillation. Rate controlled. Flow volume Chest x-ray film personally reviewed by me-interstitial prominence. Assessment and plan: -Acute severe COPD exacerbation in a previous smoker DuoNeb every 4, nebulized performed wrist, Pulmicort. IV Solu-Medrol -Acute hypoxic respiratory failure from COPD exacerbation Supplement oxygen -Chronic hypoxic respiratory failure from overlying COPD 3 L nasal cannula at home -Chronic congestive heart failure. Doubt acute exacerbation Continue oral Lasix. 2-D echocardiogram -Obesity BMI 36.6 Weight loss measures -Persistent atrial fibrillation, rate controlled Cutback amiodarone to 200 mg a day. Lopressor 75 mg 3 times a day -Hyperlipidemia Lipitor 20 mg daily at bedtime -GERD Pepcid 20 mg a day -Diabetes mellitus type 2, chronically on insulin Continue Lantus. Accu-Cheks with sliding scale. -Hypothyroid Center 100 g a day -Essential hypertension Amlodipine 2.5 mg daily, Lopressor 75 mg 3 times a day Chronic gait dysfunction Uses a walker/motorized wheelchair at her baseline -Diabetic peripheral neuropathy -CK D stage IV likely diabetic nephropathy no evidence of nephrosclerosis -Full code Discussed with patient. Fluid restrict 2000 mL a day. Gino wrap. Consultation to pulmonary and cardiology. Past Medical History Past Medical History: Atrial Fibrillation, Cancer, Heart Failure, COPD, Diabetes Mellitus, Eye Disorder, Hyperlipidemia, Hypertension, Osteoarthritis (OA), Pne umonia, Renal Disease, Seizure Disorder, Sleep Apnea/CPAP/BIPAP Additional Past Medical History / Comment(s): IDDM type II, neuropathy bilateral feet, past hematuria, CKD stage III, nephrolithiasis, chronic respiratory failure/home oxygen 3L/[place] ATC, bronchitis, R breast cancer x2 with lumpectomies/radiation, RACHEL/cpap used, spinal stenosis/chronic back pain, IBS, seizure x2 as a teen and one in 2009, bilateral macular degeneration/very poor vision, current wound R lower leg/skin tear and is seen at [facility]/home nurse, [place] History of Any Multi-Drug Resistant Organisms: MRSA, VRE Date of last positivie culture/infection: 10/02/21 09/13/21 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 Past Anesthesia/Blood Transfusion Reactions: No Reported Reaction, Motion Sickness Past Psychological History: Anxiety, Depression Smoking Status: Former smoker Past Alcohol Use History: None Reported Past Drug Use History: None Reported - Past Family History Mother Additional Family Medical History / Comment(s): breast ca Father Family Medical History: Cancer Additional Family Medical History / Comment(s): Prostate cancer. Medications and Allergies Home Medications Medication Instructions Recorded Confirmed Type Atorvastatin [Lipitor] 20 mg PO HS 07/15/14 06/06/23 History Latanoprost Ophth [Xalatan 0.005%] 1 drop BOTH EYES HS 01/28/21 06/06/23 History Montelukast [Singulair] 10 mg PO HS 01/28/21 06/06/23 History Roflumilast [Daliresp] 500 mcg PO DAILY 01/28/21 06/06/23 History Vit C/E/Zn/Coppr/Lutein/Zeaxan 1 cap PO BID 01/28/21 06/06/23 History [Preservision Areds 2 Softgel] ALPRAZolam [Xanax] 0.25 mg PO BID 09/03/21 06/06/23 History Ipratropium-Albuterol Nebulize 3 ml INHALATION RT-QID 09/03/21 06/06/23 History [Duoneb 0.5 mg-3 mg/3 ml Soln] Amiodarone [Cordarone] 200 mg PO BID 10/18/21 06/06/23 History Furosemide [Lasix] 40 mg PO DAILY 10/18/21 06/06/23 History Insulin Lispro [humaLOG Kwikpen] See Protocol SQ AC-TID 07/23/22 06/06/23 History Azelastine HCl [Astepro Allergy] 1 spr NASAL BID 12/10/22 06/06/23 History Cyanocobalamin (Vitamin B-12) 1,000 mcg PO DAILY 12/10/22 06/06/23 History [Vitamin B-12] Ergocalciferol (Vitamin D2) 1,250 mcg PO WE 12/10/22 06/06/23 History [Drisdol (50,000 Iu)] Albuterol Sulfate [Albuterol 2 puff INHALATION RT-Q6H PRN 06/06/23 06/06/23 History Sulfate Hfa] Ammonium Lactate Lotion 1 applic TOPICAL HS 06/06/23 06/06/23 History [Lac-Hydrin 12% Lotion] Benzonatate [Tessalon Perle] 200 mg PO TID PRN 06/06/23 06/06/23 History Ciprofloxacin HCl [Cipro] 500 mg PO BID 06/06/23 06/06/23 History Famotidine [Pepcid] 20 mg PO DAILY 06/06/23 06/06/23 History HYDROcodone/APAP 7.5-325MG [[place] 1 tab PO Q6H PRN 06/06/23 06/06/23 History 7.5-325] Insulin Glargine,Hum.rec.anlog 20 units SQ HS 06/06/23 06/06/23 History [Lantus Solostar Pen] Ipratropium [place] 0.06%Nasal 2 spr EA NOSTRIL Q8H 06/06/23 06/06/23 History [Atrovent Nasal 0.06%] Levothyroxine Sodium [Synthroid] 100 mcg PO AC-BRKFST 06/06/23 06/06/23 History Loperamide HCl [Imodium A-D] 2 mg PO Q6H PRN 06/06/23 06/06/23 History Melatonin 5 mg PO HS 06/06/23 06/06/23 History Metoprolol Tartrate [Lopressor] 75 mg PO TID 06/06/23 06/06/23 History Nystatin 100,000Unit/gm Cream 1 applic TOPICAL BID 06/06/23 06/06/23 History [Mycostatin Cream] Sennosides/Docusate Sodium 1 tab PO BID 06/06/23 06/06/23 History [Senna-S 8.6-50 mg Tablet] amLODIPine [Norvasc] 2.5 mg PO DAILY 06/06/23 06/06/23 History Allergies Allergy/AdvReac Type Severity Reaction Status Date / Time diclofenac sodium Allergy Unknown Verified 06/06/23 13:19 [From [facility]] adhesive tape AdvReac Rash/Hives Verified 06/06/23 13:19 Physical Exam Vitals: Vital Signs Temp Pulse Pulse Resp BP BP Pulse Ox 06/06/23 16:00 97.4 F L 75 18 142/81 95 06/06/23 15:34 68 06/06/23 15:23 76 06/06/23 15:06 97 06/06/23 14:00 22 06/06/23 11:10 98 06/06/23 10:54 64 06/06/23 10:45 66 06/06/23 10:00 97.5 F L 63 22 104/58 98 Intake and Output 06/06/23 06/06/23 06/06/23 06:59 14:59 22:59 Intake Total 180 Balance 180 Intake: Oral 180 Other: Weight 99.79 kg Results CBC & Chem 7: 06/06/23 10:14 06/06/23 10:14 Labs: Abnormal Lab Results - Last 24 Hours (Table) 06/06/23 06/06/23 Range/Units 10:14 10:14 WBC 11.5 H (3.8-10.6) k/uL RBC 3.26 L (3.80-5.40) m/uL Hgb 10.5 L (11.4-16.0) gm/dL Hct 33.2 L (34.0-46.0) % MCV 101.7 H (80.0-100.0) fL RDW 17.1 H (11.5-15.5) % Neutrophils # 8.4 H (1.3-7.7) k/uL BUN 65 H (7-17) mg/dL Creatinine 2.73 H (0.52-1.04) mg/dL Calcium 8.0 L (8.4-10.2) mg/dL AST 99 H (14-36) U/L ALT 40 H (4-34) U/L Alkaline Phosphatase 328 H (38-126) U/L Albumin 3.2 L (3.5-5.0) g/dL Thrombosis Risk Factor Assmnt - Choose All That Apply Any of the Below Risk Factors Present?: No Each Risk Factor Represents 3 Points: Age 75 years or older Thrombosis Risk Factor Assessment Total Risk Factor Score: 3 Thrombosis Risk Factor Assessment Level: Moderate Risk
[2023-06-06] MEDS ORDERED: FUROSEMIDE 10 MG/ML 10 ML VIAL IV SCH (20:00)
[2023-06-06] MEDS: BUDESONIDE 1 MG/2 ML NEBU INHALATION SCH (20:25)
[2023-06-06] MEDS: FORMOTEROL FUMARATE 20 MCG/2 ML NEBU INHALATION SCH (20:25)
[2023-06-06] MEDS ORDERED: AMIODARONE 200 MG TAB PO SCH (21:00)
[2023-06-06] MEDS: methylPREDNISolone SOD SUCCI 40 MG/ML 1 ML VIAL IV SCH (21:11)
[2023-06-06] MEDS: INSULIN DETEMIR (LEVEMIR) 100 UNIT/ML SYR SQ SCH (21:11)
[2023-06-06] MEDS: ATORVASTATIN 20 MG TAB PO SCH (21:12)
[2023-06-06] MEDS: MONTELUKAST 10 MG TAB PO SCH (21:12)
[2023-06-06] MEDS: MELATONIN 5 MG TABLET PO SCH (21:12)
[2023-06-06] MEDS: AMMONIUM LACTATE 12% LOTION 225 GM BTL TOPICAL SCH (21:12)
[2023-06-06] MEDS: NYSTATIN 100,000UNIT/GM CREAM 30 GM TUBE TOPICAL SCH (21:13)
[2023-06-06] MEDS: ALPRAZolam 0.25 MG TAB PO SCH (21:13)
[2023-06-06] MEDS: LATANOPROST 0.005% OPHTH DROPS 2.5 ML BTL BOTH EYES SCH (21:14)
[2023-06-06] MEDS: SENNOSIDES-DOCUSATE SODIUM 1 EACH TAB PO SCH (21:14)
[2023-06-06] MEDS: VIT A,C & E-LUTEIN-MINERALS 1 EACH TAB PO SCH (21:14)
[2023-06-06] MEDS: [UNRECOGNIZED DRUG - REMARK] EA NOSTRIL SCH (22:48)
[2023-06-07] MEDS: IPRATROPIUM-ALBUTEROL 3 ML NEB INHALATION SCH ×6 (00:16→20:09)
[2023-06-07] MEDS: methylPREDNISolone SOD SUCCI 40 MG/ML 1 ML VIAL IV SCH ×2 (00:38→09:02)
[2023-06-07] MEDS: HYDROcodone/APAP 7.5-325MG 1 EACH TAB PO PRN (02:21)
[2023-06-07] MEDS: LEVOTHYROXINE 100 MCG TAB PO SCH (05:51)
[2023-06-07 08:33] LABS: African American GFR (CKD) 16 (>60 ml/min/1.73 sqM); Anion Gap 14 mmol/L; Blood Urea Nitrogen 73 mg/dL (7-17); Calcium 7.9 mg/dL (8.4-10.2); Carbon Dioxide 20 mmol/L (22-30); Chloride 106 mmol/L (98-107); Glucose 210 mg/dL (74-99); Non-African American GFR(CKD) 14 (>60 ml/min/1.73 sqM); Potassium 4.7 mmol/L (3.5-5.1); Sodium 140 mmol/L (137-145)
[2023-06-07] MEDS: FORMOTEROL FUMARATE 20 MCG/2 ML NEBU INHALATION SCH ×2 (08:38→20:09)
[2023-06-07] MEDS: BUDESONIDE 1 MG/2 ML NEBU INHALATION SCH ×2 (08:38→20:09)
[2023-06-07] MEDS ORDERED: FUROSEMIDE 40 MG TAB PO SCH (09:00)
[2023-06-07] MEDS: METOPROLOL TARTRATE 25 MG TAB PO SCH ×3 (09:02→20:47)
[2023-06-07] MEDS: VIT A,C & E-LUTEIN-MINERALS 1 EACH TAB PO SCH ×2 (09:02→20:47)
[2023-06-07] MEDS: ALPRAZolam 0.25 MG TAB PO SCH ×2 (09:02→20:47)
[2023-06-07] MEDS: CYANOCOBALAMIN 500 MCG TAB PO SCH (09:02)
[2023-06-07] MEDS: SENNOSIDES-DOCUSATE SODIUM 1 EACH TAB PO SCH ×2 (09:02→20:47)
[2023-06-07] MEDS: APIXABAN 2.5 MG TABLET PO SCH ×2 (09:02→20:47)
[2023-06-07] MEDS: AMIODARONE 200 MG TAB PO SCH (09:02)
[2023-06-07] MEDS: amLODIPine 2.5 MG TAB PO SCH (09:02)
[2023-06-07] MEDS: [UNRECOGNIZED DRUG - REMARK] EA NOSTRIL SCH (09:03)
[2023-06-07] MEDS: FAMOTIDINE 20 MG TAB PO SCH (09:03)
[2023-06-07] MEDS: NYSTATIN 100,000UNIT/GM CREAM 30 GM TUBE TOPICAL SCH ×2 (09:07→20:46)
--- NOTE | 2023-06-07 11:04 | P.CNPUL ---
History of Present Illness Consult date: 06/07/23 Reason for consult: dyspnea, COPD History of present illness: This is a 82-year-old female patient presented to the hospital because of shortness of breath. The patient has seen us in the office and the patient is auction dependent COPD with chronic hypoxic respiratory failure and she is O2 dependent. Her based on FEV1 is in order of 40% of predicted. She has also other comorbidities including CHF and based on echocardiogram that was done back in 2020, the patient ejection fraction of 30-35% and moderate concentric LVH and mild pulmonary hypertension with a PA pressure of 44 mmHg. She is maintained on oxygen at 3 L/m nasal cannula daily basis. She has also issues with diabetes mellitus, hypertension, spinal stenosis, ventral hernia, acid reflux, headaches, depression, spinal stenosis, and history of breast cancer and she was had previous lumpectomies and radiation therapy, seizure disorder, macular degeneration and the patient has impaired vision and obstructive sleep apnea and she has used CPAP therapy in the past. She has also issues with chronic kidney disease, stage III chronic kidney failure, a chest fibrillation, and osteoarthritis. During this current admission, the patient's BUN was 70 with a creatinine of 3.04, sodium level is at 140, troponin was negative and a proBNP level was 3530. Coagulation profile was normal. The previous echo was 11.5 with a hemoglobin of 10.5 and a platelet count of 244. The patient's chest x-ray was consistent with cardiomegaly and pulmonary vessel congestion/CHF. There was also trace left-sided pleural effusion. The patient is a former smoker and she cares more than [id number] smoking history. Her EKG is consistent with atrial fibrillation and she has a low voltage EKG with a heart rate of 71. Review of Systems Constitutional: Reports fatigue, Reports weakness Eyes: bilateral blurred vision, bilateral decreased vision, bilateral loss of peripheral vision, denies as per HPI, denies bulging eye, denies diplopia, denies discharge, denies dry eye, denies irritation, denies itching, denies pain, denies photophobia, denies loss of vision, denies tunnel vision/blind spots Ears: deny: decreased hearing, ear discharge, earache, tinnitus Ears, nose, mouth and throat: Reports as per HPI Breasts: absent: as per HPI, change in shape, gynecomastia, masses, nipple discharge, pain, skin changes, swelling Cardiovascular: Reports decreased exercise tolerance, Reports dyspnea on exertion Respiratory: Reports congestion Gastrointestinal: Reports as per HPI Genitourinary: Reports as per HPI Menstruation: Reports as per HPI Musculoskeletal: Reports as per HPI, Reports gait dysfunction, Reports muscle weakness Musculoskeletal: absent: ankle pain, ankle stiffness, ankle swelling Integumentary: Reports as per HPI Neurological: Reports as per HPI Psychiatric: Reports as per HPI Endocrine: Reports as per HPI Hematologic/Lymphatic: Reports as per HPI Past Medical History Past Medical History: Atrial Fibrillation, Cancer, Heart Failure, COPD, Diabetes Mellitus, Eye Disorder, Hyperlipidemia, Hypertension, Osteoarthritis (OA), Pneumonia, Renal Disease, Seizure Disorder, Sleep Apnea/CPAP/BIPAP Additional Past Medical History / Comment(s): IDDM type II, neuropathy bilateral feet, past hematuria, CKD stage III, nephrolithiasis, chronic respiratory failure/home oxygen 3L/[place] ATC, bronchitis, R breast cancer x2 with lumpectomies/radiation, RACHEL/cpap used, spinal stenosis/chronic back pain, IBS, seizure x2 as a teen and one in 2009, bilateral macular degeneration/very poor vision, current wound R lower leg/skin tear and is seen at [facility]/home nurse, [place] History of Any Multi-Drug Resistant Organisms: MRSA, VRE Date of last positivie culture/infection: 10/02/21 09/13/21 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 Past Anesthesia/Blood Transfusion Reactions: No Reported Reaction, Motion Sickness Past Psychological History: Anxiety, Depression Smoking Status: Former smoker Past Alcohol Use History: None Reported Past Drug Use History: None Reported - Past Family History Mother Additional Family Medical History / Comment(s): breast ca Father Family Medical History: Cancer Additional Family Medical History / Comment(s): Prostate cancer. Medications and Allergies Home Medications Medication Instructions Recorded Confirmed Type Atorvastatin [Lipitor] 20 mg PO HS 07/15/14 06/06/23 History Latanoprost Ophth [Xalatan 0.005%] 1 drop BOTH EYES HS 01/28/21 06/06/23 History Montelukast [Singulair] 10 mg PO HS 01/28/21 06/06/23 History Roflumilast [Daliresp] 500 mcg PO DAILY 01/28/21 06/06/23 History Vit C/E/Zn/Coppr/Lutein/Zeaxan 1 cap PO BID 01/28/21 06/06/23 History [Preservision Areds 2 Softgel] ALPRAZolam [Xanax] 0.25 mg PO BID 09/03/21 06/06/23 History Ipratropium-Albuterol Nebulize 3 ml INHALATION RT-QID 09/03/21 06/06/23 History [Duoneb 0.5 mg-3 mg/3 ml Soln] Amiodarone [Cordarone] 200 mg PO BID 10/18/21 06/06/23 History Furosemide [Lasix] 40 mg PO DAILY 10/18/21 06/06/23 History Insulin Lispro [humaLOG Kwikpen] See Protocol SQ AC-TID 07/23/22 06/06/23 History Azelastine HCl [Astepro Allergy] 1 spr NASAL BID 12/10/22 06/06/23 History Cyanocobalamin (Vitamin B-12) 1,000 mcg PO DAILY 12/10/22 06/06/23 History [Vitamin B-12] Ergocalciferol (Vitamin D2) 1,250 mcg PO WE 12/10/22 06/06/23 History [Drisdol (50,000 Iu)] Albuterol Sulfate [Albuterol 2 puff INHALATION RT-Q6H PRN 06/06/23 06/06/23 History Sulfate Hfa] Ammonium Lactate Lotion 1 applic TOPICAL HS 06/06/23 06/06/23 History [Lac-Hydrin 12% Lotion] Benzonatate [Tessalon Perle] 200 mg PO TID PRN 06/06/23 06/06/23 History Ciprofloxacin HCl [Cipro] 500 mg PO BID 06/06/23 06/06/23 History Famotidine [Pepcid] 20 mg PO DAILY 06/06/23 06/06/23 History HYDROcodone/APAP 7.5-325MG [[place] 1 tab PO Q6H PRN 06/06/23 06/06/23 History 7.5-325] Insulin Glargine,Hum.rec.anlog 20 units SQ HS 06/06/23 06/06/23 History [Lantus Solostar Pen] Ipratropium Amanda 0.06%Nasal 2 spr EA NOSTRIL Q8H 06/06/23 06/06/23 History [Atrovent Nasal 0.06%] Levothyroxine Sodium [Synthroid] 100 mcg PO AC-BRKFST 06/06/23 06/06/23 History Loperamide HCl [Imodium A-D] 2 mg PO Q6H PRN 06/06/23 06/06/23 History Melatonin 5 mg PO HS 06/06/23 06/06/23 History Metoprolol Tartrate [Lopressor] 75 mg PO TID 06/06/23 06/06/23 History Nystatin 100,000Unit/gm Cream 1 applic TOPICAL BID 06/06/23 06/06/23 History [Mycostatin Cream] Sennosides/Docusate Sodium 1 tab PO BID 06/06/23 06/06/23 History [Senna-S 8.6-50 mg Tablet] amLODIPine [Norvasc] 2.5 mg PO DAILY 06/06/23 06/06/23 History Allergies Allergy/AdvReac Type Severity Reaction Status Date / Time diclofenac sodium Allergy Unknown Verified 06/06/23 13:19 [From [facility]] adhesive tape AdvReac Rash/Hives Verified 06/06/23 13:19 Physical Exam Vitals: Vital Signs Temp Pulse Pulse Resp BP Pulse Ox 06/07/23 09:00 68 06/07/23 08:47 68 06/07/23 08:38 68 06/07/23 08:00 97.6 F 71 20 120/77 98 06/07/23 04:20 64 06/07/23 04:07 68 06/07/23 04:00 97.1 F L 71 18 135/72 100 06/06/23 23:35 98.0 F 75 16 160/71 100 06/06/23 20:52 70 06/06/23 20:38 70 06/06/23 20:26 80 06/06/23 20:00 97.6 F 69 18 149/81 100 06/06/23 16:00 97.4 F L 75 18 142/81 95 06/06/23 15:34 68 06/06/23 15:23 76 06/06/23 15:06 97 06/06/23 14:00 22 06/06/23 11:10 98 Intake and Output 06/06/23 06/07/23 06/07/23 22:59 06:59 14:59 Intake Total 180 420 Output Total 950 Balance 180 -950 420 Intake: Oral 180 420 Output: Urine 950 Other: Weight 107.3 kg GENERAL: BMI 36.6, sitting up in a chair awake short of breath. The patient is currently on 3 L of oxygen nasal cannula EYES: Pupils equal. Conjunctiva normal. HEENT: External appearance of nose and ears normal, oral cavity grossly normal. NECK: JVD unable to assess; masses not palpable. HEART: First and second heart sounds are normal; so edema. LUNGS: Respiratory rate increased; but able to speak in full sentences, diminished breath sounds or wheezing. ABDOMEN: Soft, nontender, liver spleen not palpable, no masses palpable. PSYCH: Alert and oriented x3; mood and affect normal. MUSCULOSKELETAL:No Clubbing/cyanosis;muscles-grossly intact. OA, increased edema lower extremities bilaterally NEUROLOGICAL: Cranial nerves grossly intact; no facial asymmetry, power and sensation grossly intact. LYMPHATICS: No lymph nodes palpable in the axilla and neck Results - Laboratory Findings CBC and BMP: 06/06/23 10:14 06/07/23 07:54 ABG WBC 11.5 k/uL (3.8-10.6) H 06/06/23 10:14 RBC 3.26 m/uL (3.80-5.40) L 06/06/23 10:14 Hgb 10.5 gm/dL (11.4-16.0) L 06/06/23 10:14 Hct 33.2 % (34.0-46.0) L 06/06/23 10:14 MCV 101.7 fL (80.0-100.0) H 06/06/23 10:14 MCH 32.3 pg (25.0-35.0) 06/06/23 10:14 MCHC 31.7 g/dL (31.0-37.0) 06/06/23 10:14 RDW 17.1 % (11.5-15.5) H 06/06/23 10:14 Plt Count 244 k/uL (150-450) 06/06/23 10:14 MPV 8.1 06/06/23 10:14 Neutrophils % 73 % 06/06/23 10:14 Lymphocytes % 13 % 06/06/23 10:14 Monocytes % 7 % 06/06/23 10:14 Eosinophils % 4 % 06/06/23 10:14 Basophils % 1 % 06/06/23 10:14 Neutrophils # 8.4 k/uL (1.3-7.7) H 06/06/23 10:14 Lymphocytes # 1.5 k/uL (1.0-4.8) 06/06/23 10:14 Monocytes # 0.8 k/uL (0-1.0) 06/06/23 10:14 Eosinophils # 0.5 k/uL (0-0.7) 06/06/23 10:14 Basophils # 0.1 k/uL (0-0.2) 06/06/23 10:14 Hypochromasia Marked 06/06/23 10:14 Anisocytosis Slight 06/06/23 10:14 Macrocytosis Moderate 06/06/23 10:14 PT 11.4 sec (9.0-12.0) 06/06/23 10:14 INR 1.1 (<1.2) 06/06/23 10:14 APTT 27.8 sec (22.0-30.0) 06/06/23 10:14 Sodium 140 mmol/L (137-145) 06/07/23 07:54 Potassium 4.7 mmol/L (3.5-5.1) 06/07/23 07:54 Chloride 106 mmol/L (98-107) 06/07/23 07:54 Carbon Dioxide 20 mmol/L (22-30) L 06/07/23 07:54 Anion Gap 14 mmol/L 06/07/23 07:54 BUN 73 mg/dL (7-17) H 06/07/23 07:54 Creatinine 3.04 mg/dL (0.52-1.04) H 06/07/23 07:54 Est GFR (CKD-EPI)AfAm 16 (>60 ml/min/1.73 sqM) 06/07/23 07:54 Est GFR (CKD-EPI)NonAf 14 (>60 ml/min/1.73 sqM) 06/07/23 07:54 Glucose 210 mg/dL (74-99) H 06/07/23 07:54 Plasma Lactic Acid Hema 1.1 mmol/L (0.7-2.0) 06/06/23 10:14 Calcium 7.9 mg/dL (8.4-10.2) L 06/07/23 07:54 Magnesium 2.1 mg/dL (1.6-2.3) 06/06/23 10:14 Total Bilirubin 0.6 mg/dL (0.2-1.3) 06/06/23 10:14 AST 99 U/L (14-36) H 06/06/23 10:14 ALT 40 U/L (4-34) H 06/06/23 10:14 Alkaline Phosphatase 328 U/L (38-126) H 06/06/23 10:14 Troponin I <0.012 ng/mL (0.000-0.034) 06/06/23 10:14 NT-Pro-B Natriuret Pep 3530 pg/mL 06/06/23 10:14 Total Protein 7.0 g/dL (6.3-8.2) 06/06/23 10:14 Albumin 3.2 g/dL (3.5-5.0) L 06/06/23 10:14 PT/INR, D-dimer PT 11.4 sec (9.0-12.0) 06/06/23 10:14 INR 1.1 (<1.2) 06/06/23 10:14 Abnormal lab findings: Abnormal Labs 06/06/23 06/06/23 06/07/23 10:14 10:14 07:54 WBC 11.5 H RBC 3.26 L Hgb 10.5 L Hct 33.2 L MCV 101.7 H RDW 17.1 H Neutrophils # 8.4 H Carbon Dioxide 20 L BUN 65 H 73 H Creatinine 2.73 H 3.04 H Glucose 210 H Calcium 8.0 L 7.9 L AST 99 H ALT 40 H Alkaline Phosphatase 328 H Albumin 3.2 L - Diagnostic Findings Chest x-ray: image reviewed Assessment and Plan Plan: Shortness of breath, multifactorial. Patient has a combination of COPD and CHF and some limited fluid overload contributing to her shortness of breath. Severe COPD with an FEV1 of 40% of predicted Chronic systolic heart failure with an EF of around 30-35% and secondary pulmonary hypertension Chronic stage IV kidney disease Chronic itch of fibrillation Obstructive sleep apnea maintenance CPAP therapy on outpatient basis Hypertension Hyperlipidemia Diabetes mellitus type 2 Hypothyroidism Cervical spine stenosis Chronic gait dysfunction, Macular degeneration Obesity DNR/DNI CODE STATUS Plan Overall condition is stable. I reviewed the chest x-ray and there may be a component of CHF/fluid overload on top of chronic respiratory difficulties. Based on all this, I'm going to give the patient Lasix 40 mg IV every 12 hours for the next 24 hours monitoring her renal function. Would ask the patient to bring in her own CPAP machine from home. Continue same medications. No need for steroids. Continue bronchodilators. Titrate oxygen. This continued IV Solu-Medrol Will follow.
--- NOTE | 2023-06-07 11:53 | P.CRDCN ---
History of Present Illness History of present illness: HISTORY OF PRESENT ILLNESS: This is a 82-year-old female with a past medical history significant for hypertension, hyperlipidemia, COPD, oxygen dependence, former smoker, and atrial fibrillation. Patient follows in the office with Dr. Umanzor. We have been asked to see the patient in consultation for congestive heart failure. Patient examined at the bedside. Patient presented to the hospital with chief complaint of shortness of breath. Patient is being treated for COPD exacerbation as well as congestive heart failure exacerbation. The patient received IV Lasix yesterday and has been transitioned to oral Lasix today. She denies any chest pain or pressure. She continues to report shortness of breath at the time of examination. She reports some mild lower extremity edema which is worse than her baseline. The patient does not have anticoagulation listed on her home medication list. She states that she is taking Eliquis for her atrial fibrillation. She states that she goes in and out of atrial fibrillation and is not and it all the time. Patient's vital signs this morning are stable. * EKG reveals atrial fibrillation with controlled ventricular rate * Chest xray cardiomegaly with pulmonary vascular congestion and trace left pleural effusion. This suggests CHF exacerbation. * Laboratory data: WBC 11.5. Hemoglobin 10.5. Platelet count 244. Sodium 140. Potassium 4.7. BUN 73. Creatinine 3.04. Troponin negative 1. ProBNP 3530. * Current home cardiac medications include Norvasc 2.5 mg daily, metoprolol tartrate 75 mg 3 times a day, Lasix 40 mg daily, Lipitor 20 mg at night, and amiodarone 200 mg twice a day * Most recent echocardiogram obtained in August 2021 revealed ejection fraction 30-35%, mild tricuspid regurgitation, mild pulmonary hypertension REVIEW OF SYSTEMS: At the time of my exam: CONSTITUTIONAL: Denies fever or chills. HEENT: Denies blurred vision, vision changes, or eye pain. Denies hemoptysis CARDIOVASCULAR: Denies chest pain. Denies orthopnea. Denies PND. Denies palpitations RESPIRATORY: Denies shortness of breath. GASTROINTESTINAL: Denies abdominal pain. Denies nausea or vomiting. HEMATOLOGIC: Denies bleeding disorders. GENITOURINARY: Denies any blood in urine. SKIN: Denies pruitis. Denies rash. PHYSICAL EXAM: VITAL SIGNS: Reviewed. GENERAL: Well-developed in no acute distress. HEENT: Head is normocephalic. Pupils are equal, round. Sclerae anicteric. Mucous membranes of the mouth are moist. Neck supple. No JVD or thyromegaly LUNGS: Respirations even and unlabored. Lungs diminished with mild expiratory wheezing noted on the left HEART: Irregular rate and rhythm. S1 and S2 heard. ABDOMEN: Soft. Nondistended. Nontender. EXTREMITIES: Normal range of motion. No clubbing or cyanosis. Peripheral pulses intact. 1+ bilateral lower extremity edema NEUROLOGIC: Awake and alert. Oriented x 3. ASSESSMENT: Shortness of breath Acute COPD exacerbation Acute on chronic heart failure with reduced ejection fraction, 3035%, repeat echo pending Paroxysmal atrial fibrillation History of COPD with home oxygen Chronic kidney disease Hypertension Hyperlipidemia Former nicotine dependence PLAN: Obtain 2-D echo to assess cardiac structure and function Resume home cardiac medications Continue oral Lasix Begin Eliquis 2.5mg BID Further recommendations pending patient course Nurse practitioner note has been reviewed by physician. Signing provider agrees with the documented findings, assessment, and plan of care. Past Medical History Past Medical History: Atrial Fibrillation, Cancer, Heart Failure, COPD, Diabetes Mellitus, Eye Disorder, Hyperlipidemia, Hypertension, Osteoarthritis (OA), Pneumonia, Renal Disease, Seizure Disorder, Sleep Apnea/CPAP/BIPAP Additional Past Medical History / Comment(s): IDDM type II, neuropathy bilateral feet, past hematuria, CKD stage III, nephrolithiasis, chronic respiratory failure/home oxygen 3L/[place] ATC, bronchitis, R breast cancer x2 with lumpectomies/radiation, RACHEL/cpap used, spinal stenosis/chronic back pain, IBS, seizure x2 as a teen and one in 2009, bilateral macular degeneration/very poor vision, current wound R lower leg/skin tear and is seen at [facility]/home nurse, [place] History of Any Multi-Drug Resistant Organisms: MRSA, VRE Date of last positivie culture/infection: 10/02/21 09/13/21 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 Past Anesthesia/Blood Transfusion Reactions: No Reported Reaction, Motion Sickness Past Psychological History: Anxiety, Depression Smoking Status: Former smoker Past Alcohol Use History: None Reported Past Drug Use History: None Reported - Past Family History Mother Additional Family Medical History / Comment(s): breast ca Father Family Medical History: Cancer Additional Family Medical History / Comment(s): Prostate cancer. Medications and Allergies Home Medications Medication Instructions Recorded Confirmed Type Atorvastatin [Lipitor] 20 mg PO HS 07/15/14 06/06/23 History Latanoprost Ophth [Xalatan 0.005%] 1 drop BOTH EYES HS 01/28/21 06/06/23 History Montelukast [Singulair] 10 mg PO HS 01/28/21 06/06/23 History Roflumilast [Daliresp] 500 mcg PO DAILY 01/28/21 06/06/23 History Vit C/E/Zn/Coppr/Lutein/Zeaxan 1 cap PO BID 01/28/21 06/06/23 History [Preservision Areds 2 Softgel] ALPRAZolam [Xanax] 0.25 mg PO BID 09/03/21 06/06/23 History Ipratropium-Albuterol Nebulize 3 ml INHALATION RT-QID 09/03/21 06/06/23 History [Duoneb 0.5 mg-3 mg/3 ml Soln] Amiodarone [Cordarone] 200 mg PO BID 10/18/21 06/06/23 History Furosemide [Lasix] 40 mg PO DAILY 10/18/21 06/06/23 History Insulin Lispro [humaLOG Kwikpen] See Protocol SQ AC-TID 07/23/22 06/06/23 History Azelastine HCl [Astepro Allergy] 1 spr NASAL BID 12/10/22 06/06/23 History Cyanocobalamin (Vitamin B-12) 1,000 mcg PO DAILY 12/10/22 06/06/23 History [Vitamin B-12] Ergocalciferol (Vitamin D2) 1,250 mcg PO WE 12/10/22 06/06/23 History [Drisdol (50,000 Iu)] Albuterol Sulfate [Albuterol 2 puff INHALATION RT-Q6H PRN 06/06/23 06/06/23 History Sulfate Hfa] Ammonium Lactate Lotion 1 applic TOPICAL HS 06/06/23 06/06/23 History [Lac-Hydrin 12% Lotion] Benzonatate [Tessalon Perle] 200 mg PO TID PRN 06/06/23 06/06/23 History Ciprofloxacin HCl [Cipro] 500 mg PO BID 06/06/23 06/06/23 History Famotidine [Pepcid] 20 mg PO DAILY 06/06/23 06/06/23 History HYDROcodone/APAP 7.5-325MG [Nursery 1 tab PO Q6H PRN 06/06/23 06/06/23 History 7.5-325] Insulin Glargine,Hum.rec.anlog 20 units SQ HS 06/06/23 06/06/23 History [Lantus Solostar Pen] Ipratropium [place] 0.06%Nasal 2 spr EA NOSTRIL Q8H 06/06/23 06/06/23 History [Atrovent Nasal 0.06%] Levothyroxine Sodium [Synthroid] 100 mcg PO AC-BRKFST 06/06/23 06/06/23 History Loperamide HCl [Imodium A-D] 2 mg PO Q6H PRN 06/06/23 06/06/23 History Melatonin 5 mg PO HS 06/06/23 06/06/23 History Metoprolol Tartrate [Lopressor] 75 mg PO TID 06/06/23 06/06/23 History Nystatin 100,000Unit/gm Cream 1 applic TOPICAL BID 06/06/23 06/06/23 History [Mycostatin Cream] Sennosides/Docusate Sodium 1 tab PO BID 06/06/23 06/06/23 History [Senna-S 8.6-50 mg Tablet] amLODIPine [Norvasc] 2.5 mg PO DAILY 06/06/23 06/06/23 History Allergies Allergy/AdvReac Type Severity Reaction Status Date / Time diclofenac sodium Allergy Unknown Verified 06/06/23 13:19 [From [facility]] adhesive tape AdvReac Rash/Hives Verified 06/06/23 13:19 Physical Exam Vitals: Vital Signs Temp Pulse Pulse Resp BP BP Pulse Ox 06/07/23 04:20 64 06/07/23 04:07 68 06/07/23 04:00 97.1 F L 71 18 135/72 100 06/06/23 23:35 98.0 F 75 16 160/71 100 06/06/23 20:52 70 06/06/23 20:38 70 06/06/23 20:26 80 06/06/23 20:00 97.6 F 69 18 149/81 100 06/06/23 16:00 97.4 F L 75 18 142/81 95 06/06/23 15:34 68 06/06/23 15:23 76 06/06/23 15:06 97 06/06/23 14:00 22 06/06/23 11:10 98 06/06/23 10:54 64 06/06/23 10:45 66 06/06/23 10:00 97.5 F L 63 22 104/58 98 Intake and Output 06/06/23 06/07/23 06/07/23 22:59 06:59 14:59 Intake Total 180 Output Total 950 Balance 180 -950 Intake: Oral 180 Output: Urine 950 Other: Weight 107.3 kg Results 06/06/23 10:14 06/07/23 07:54 Cardiac Enzymes 06/06/23 06/06/23 Range/Units 10:14 10:14 AST 99 H (14-36) U/L Troponin I <0.012 (0.000-0.034) ng/mL Coagulation 06/06/23 Range/Units 10:14 PT 11.4 (9.0-12.0) sec APTT 27.8 (22.0-30.0) sec CBC 06/06/23 Range/Units 10:14 WBC 11.5 H (3.8-10.6) k/uL RBC 3.26 L (3.80-5.40) m/uL Hgb 10.5 L (11.4-16.0) gm/dL Hct 33.2 L (34.0-46.0) % Plt Count 244 (150-450) k/uL Comprehensive Metabolic Panel 06/06/23 Range/Units 10:14 Sodium 140 (137-145) mmol/L Potassium 5.1 (3.5-5.1) mmol/L Chloride 107 (98-107) mmol/L Carbon Dioxide 23 (22-30) mmol/L BUN 65 H (7-17) mg/dL Creatinine 2.73 H (0.52-1.04) mg/dL Glucose 95 (74-99) mg/dL Calcium 8.0 L (8.4-10.2) mg/dL AST 99 H (14-36) U/L ALT 40 H (4-34) U/L Alkaline Phosphatase 328 H (38-126) U/L Total Protein 7.0 (6.3-8.2) g/dL Albumin 3.2 L (3.5-5.0) g/dL Current Medications Generic Name Dose Route Start Last Admin Trade Name Freq PRN Reason Stop Dose Admin Acetaminophen 650 mg 06/06/23 15:06 Acetaminophen Tab 325 Mg Tab PO Q6HR PRN Mild Pain or Fever > 100.5 Hydrocodone Bitart/Acetaminophen 1 each 06/06/23 14:39 06/07/23 02:21 Hydrocodone/Apap 7.5-325mg 1 Each Tab PO 1 each Q6H PRN Administration Severe Pain (Scale 7 to 10) Albuterol/Ipratropium 3 ml 06/06/23 14:31 Ipratropium-Albuterol 3 Ml Neb INHALATION RT-Q4H PRN Shortness Of Breath Or Wheezing Albuterol/Ipratropium 3 ml 06/06/23 16:00 06/07/23 04:07 Ipratropium-Albuterol 3 Ml Neb INHALATION 3 ml RT-Q4H JENNIFER Administration Alprazolam 0.25 mg 06/06/23 21:00 06/06/23 21:13 Alprazolam 0.25 Mg Tab PO 0.25 mg BID JENNIFER Administration Amiodarone HCl 200 mg 06/07/23 09:00 Amiodarone 200 Mg Tab PO DAILY JENNIFER Amlodipine Besylate 2.5 mg 06/07/23 09:00 Amlodipine 2.5 Mg Tab PO DAILY JENNIFER Atorvastatin Calcium 20 mg 06/06/23 21:00 06/06/23 21:12 Atorvastatin 20 Mg Tab PO 20 mg HS JENNIFER Administration Budesonide 1 mg 06/06/23 20:00 06/06/23 20:25 Budesonide 1 Mg/2 Ml Nebu INHALATION 1 mg RT-BID JENNIFER Administration Calcium Carbonate/Glycine 1,000 mg 06/06/23 15:06 Calcium Carbonate 500 Mg Chewable PO Q4HR PRN Dyspepsia Cyanocobalamin 1,000 mcg 06/07/23 09:00 Cyanocobalamin 500 Mcg Tab PO DAILY [facility] Famotidine 20 mg 06/07/23 09:00 Famotidine 20 Mg Tab PO DAILY [facility] Formoterol Fumarate 20 mcg 06/06/23 20:00 06/06/23 20:25 Formoterol Fumarate 20 Mcg/2 Ml Nebu INHALATION 20 mcg RT-BID JENNIFER Administration Furosemide 40 mg 06/07/23 09:00 Furosemide 40 Mg Tab PO DAILY [facility] Insulin Detemir 20 unit 06/06/23 21:00 06/06/23 21:11 Insulin Detemir (Levemir) 100 Unit/Ml Syr SQ 20 unit HS [facility] Administration Lactic Acid 1 applic 06/06/23 21:00 06/06/23 21:12 Ammonium Lactate 12% Lotion 225 Gm Btl TOPICAL 1 applic HS [facility] Administration Protocol Latanoprost 1 drops 06/06/23 21:00 06/06/23 21:14 Latanoprost 0.005% Ophth Drops 2.5 Ml Btl BOTH EYES Not Given HS [facility] Levothyroxine Sodium 100 mcg 06/07/23 06:30 06/07/23 05:51 Levothyroxine 100 Mcg Tab PO 100 mcg 0630 [facility] Administration Melatonin 5 mg 06/06/23 21:00 06/06/23 21:12 Melatonin 5 Mg Tablet PO 5 mg HS [facility] Administration Methylprednisolone Sodium Succinate 40 mg 06/06/23 19:45 06/07/23 00:38 Methylprednisolone Sod Succi 40 Mg/Ml 1 Ml Vial IV Not Given Q8HR [facility] Metoprolol Tartrate 75 mg 06/06/23 16:00 06/06/23 21:12 Metoprolol Tartrate 25 Mg Tab PO 75 mg TID JENNIFER Administration Montelukast Sodium 10 mg 06/06/23 21:00 06/06/23 21:12 Montelukast 10 Mg Tab PO 10 mg HS [facility] Administration Multivitamins/Minerals 1 each 06/06/23 21:00 06/06/23 21:14 Vit A,C & S-Grrghh-Oylrgtka 1 Each Tab PO Not Given BID JENNIFER Naloxone HCl 0.2 mg 06/06/23 15:06 Naloxone 0.4 Mg/Ml 1 Ml Vial IV Q2M PRN Opioid Reversal Patient's Own ( 1 spr 06/06/23 21:00 06/06/23 22:48 Azelastine Hcl [ EA NOSTRIL Not Given Astepro Allergy] 205 BID JENNIFER .5 Mcg/0.137 Ml [place].Pump) Nystatin 1 applic 06/06/23 21:00 06/06/23 21:13 Nystatin 100,000unit/Gm Cream 30 Gm Tube TOPICAL 1 applic BID JENNIFER Administration Protocol Ondansetron HCl 4 mg 06/06/23 15:06 Ondansetron 4 Mg/2 Ml Vial IVP Q8HR PRN Nausea And Vomiting Senna/Docusate Sodium 1 each 06/06/23 21:00 06/06/23 21:14 Sennosides-Docusate Sodium 1 Each Tab PO Not Given BID JENNIFER Sodium Biphosphate/Sodium Phosphate 133 ml 06/06/23 15:06 Na Phos,M-B/Na Phos,Di-Ba 133 Ml Enema RECTAL ONCE PRN Constipation Intake and Output 06/06/23 06/07/23 06/07/23 22:59 06:59 14:59 Intake Total 180 Output Total 950 Balance 180 -950 Intake: Oral 180 Output: Urine 950 Other: Weight 107.3 kg 06/06/23 10:14 06/06/23 10:14
[2023-06-07] MEDS: FUROSEMIDE 10 MG/ML 4 ML VIAL IV SCH (13:53)
--- NOTE | 2023-06-07 17:15 | CA ---
Transthoracic Echo Report Name: Preeti Orozco Age: 82 Gender: F : 1940 Exam Date: 06/07/2023 09:48 Exam Location: [place] [facility] Ht (in): 65 Wt (lb): 236 Ordering Physician: Nemesio Marin MD Attending/Referring Phys: Sweatband Maker Alice Santoro [facility] Procedure CPT: Indications: chf Cardiac Hx: Technical Quality: Technically difficult study Contrast 1: Definity Total Dose (mL): 5 Contrast 2: Total Dose (mL): MEASUREMENTS (Male / Female) Normal Values 2D ECHO LV Diastolic Diameter PLAX 5.0 cm 4.2 - 5.9 / 3.9 - 5.3 cm LV Systolic Diameter PLAX 3.7 cm IVS Diastolic Thickness 0.8 cm 0.6 - 1.0 / 0.6 - 0.9 cm LVPW Diastolic Thickness 1.0 cm 0.6 - 1.0 / 0.6 - 0.9 cm LV Relative Wall Thickness 0.4 LVOT Diameter 2.0 cm Ascending Aorta Diameter 3.0 cm M-MODE Aortic Root Diameter MM 2.8 cm LA Systolic Diameter MM 4.7 cm LA Ao Ratio MM 1.7 AV Cusp Separation MM 1.4 cm DOPPLER AV Peak Velocity 174.2 cm/s AV Peak Gradient 12.1 mmHg AV Mean Velocity 127.8 cm/s AV Mean Gradient 7.3 mmHg AV Velocity Time Integral 42.0 cm LVOT Peak Velocity 95.3 cm/s LVOT Peak Gradient 3.6 mmHg LVOT Velocity Time Integral 21.8 cm LVOT Stroke Volume 69.2 cm??? LVOT Stroke Volume Index 32.6 ml/m??? LVOT Cardiac Index 2196.8 cm???/min???m??? AV Area Cont Eq vti 1.6 cm??? AV Area Cont Eq pk 1.7 cm??? Mitral E Point Velocity 129.2 cm/s Mitral A Point Velocity 42.5 cm/s Mitral E to A Ratio 3.0 MV Deceleration Time 177.4 ms LV E' Lateral Velocity 9.2 cm/s Mitral E to LV E' Lateral Ratio 14.1 LV E' Septal Velocity 6.1 cm/s Mitral E to LV E' Septal Ratio 21.2 TR Peak Velocity 315.5 cm/s TR Peak Gradient 39.8 mmHg Right Atrial Pressure 15.0 mmHg Pulmonary Artery Systolic Pressu 54.8 mmHg Right Ventricular Systolic Press 54.8 mmHg FINDINGS Left Ventricle Normal wall thickness, systolic function with no obvious regional wall motion abnormalities. Left ventricular cavity size at the upper limits of normal. Left ventricular ejection fraction is estimated at 55-60%. Right Ventricle Right ventricle not well visualized but appears dilated. Severe pulmonary hypertension. Right Atrium Right atrium not well visualized. Left Atrium Severe left atrial dilatation. Mitral Valve Mitral valve thickened. Mild mitral regurgitation. Aortic Valve Aortic valve not well visualized but appears thickened. Mild aortic stenosis. No aortic regurgitation. Tricuspid Valve Tricuspid valve not well visualized. Pulmonic Valve Pulmonic valve not well visualized. Trace pulmonic regurgitation. Pericardium No pericardial effusion. Echo free space anterior to the right ventricle likely represents a fat pad. Aorta Normal size aortic root and proximal ascending aorta. CONCLUSIONS Normal LV systolic function Severe pulmonary hypertension Mild aortic stenosis Previewed by: Dr. Celestine Umanzor MD (Electronically Signed) Final Date: 07 June 2023 17:14
--- NOTE | 2023-06-07 18:37 | P.PN ---
Progress Note - Text Progress Note Date: 06/07/23 Chief Complaint: Short of breath This is a pleasant 82-year-old patient who follows with visiting physicians. [employer] [address]. Camp. Baseline patient is short of breath but more so in the last 10 days. Wheezing. No cough no fever no chills. Appetite is fair. Has chronic lower extremity edema. Normally sleeps using one pillow. No chest pain. Uses a wheelchair to get about. Admitted with acute COPD exacerbation and possible acute CHF exacerbation. June 07: Getting slightly better. Short of breath. Eating well. Has family visiting. Sitting at the edge of the bed. Dr. Evangelista felt the patient may have some fluid overload. Given IV Lasix. Active Medications Acetaminophen (Acetaminophen Tab 325 Mg Tab) 650 mg PO Q6HR PRN PRN Reason: Mild Pain or Fever > 100.5 Hydrocodone Bitart/Acetaminophen (Hydrocodone/Apap 7.5-325mg 1 Each Tab) 1 each PO Q6H PRN PRN Reason: Severe Pain (Scale 7 to 10) Last Admin: 06/07/23 02:21 Dose: 1 each Albuterol/Ipratropium (Ipratropium-Albuterol 3 Ml Neb) 3 ml INHALATION RT-Q4H PRN PRN Reason: Shortness Of Breath Or Wheezing Albuterol/Ipratropium (Ipratropium-Albuterol 3 Ml Neb) 3 ml INHALATION RT-Q4H [facility] Last Admin: 06/07/23 15:51 Dose: Not Given Alprazolam (Alprazolam 0.25 Mg Tab) 0.25 mg PO BID [facility] Last Admin: 06/07/23 09:02 Dose: 0.25 mg Amiodarone HCl (Amiodarone 200 Mg Tab) 200 mg PO DAILY [facility] Last Admin: 06/07/23 09:02 Dose: 200 mg Amlodipine Besylate (Amlodipine 2.5 Mg Tab) 2.5 mg PO DAILY [facility] Last Admin: 06/07/23 09:02 Dose: 2.5 mg Apixaban (Apixaban 2.5 Mg Tablet) 2.5 mg PO BID [facility]; Protocol Last Admin: 06/07/23 09:02 Dose: 2.5 mg Atorvastatin Calcium (Atorvastatin 20 Mg Tab) 20 mg PO [facility] Last Admin: 06/06/23 21:12 Dose: 20 mg Budesonide (Budesonide 1 Mg/2 Ml Nebu) 1 mg INHALATION RT-BID [facility] Last Admin: 06/07/23 08:38 Dose: 1 mg Calcium Carbonate/Glycine (Calcium Carbonate 500 Mg Chewable) 1,000 mg PO Q4HR PRN PRN Reason: Dyspepsia Cyanocobalamin (Cyanocobalamin 500 Mcg Tab) 1,000 mcg PO DAILY [facility] Last Admin: 06/07/23 09:02 Dose: 1,000 mcg Famotidine (Famotidine 20 Mg Tab) 20 mg PO DAILY [facility] Last Admin: 06/07/23 09:03 Dose: 20 mg Formoterol Fumarate (Formoterol Fumarate 20 Mcg/2 Ml Nebu) 20 mcg INHALATION RT-BID [facility] Last Admin: 06/07/23 08:38 Dose: 20 mcg Furosemide (Furosemide 10 Mg/Ml 4 Ml Vial) 40 mg IV 0900,1700 [facility] Last Admin: 06/07/23 13:53 Dose: 40 mg Insulin Detemir (Insulin Detemir (Levemir) 100 Unit/Ml Syr) 20 unit SQ [facility] Last Admin: 06/06/23 21:11 Dose: 20 unit Lactic Acid (Ammonium Lactate 12% Lotion 225 Gm Btl) 1 applic TOPICAL [facility]; Protocol Last Admin: 06/06/23 21:12 Dose: 1 applic Latanoprost (Latanoprost 0.005% Ophth Drops 2.5 Ml Btl) 1 drops BOTH EYES [facility] Last Admin: 06/06/23 21:14 Dose: Not Given Levothyroxine Sodium (Levothyroxine 100 Mcg Tab) 100 mcg PO 0630 [facility] Last Admin: 06/07/23 05:51 Dose: 100 mcg Melatonin (Melatonin 5 Mg Tablet) 5 mg PO [facility] Last Admin: 06/06/23 21:12 Dose: 5 mg Metoprolol Tartrate (Metoprolol Tartrate 25 Mg Tab) 75 mg PO TID [facility] Last Admin: 06/07/23 13:53 Dose: 75 mg Montelukast Sodium (Montelukast 10 Mg Tab) 10 mg PO [facility] Last Admin: 06/06/23 21:12 Dose: 10 mg Multivitamins/Minerals (Vit A,C & S-Afxlax-Jmhyluzx 1 Each Tab) 1 each PO BID [facility] Last Admin: 06/07/23 09:02 Dose: 1 each Naloxone HCl (Naloxone 0.4 Mg/Ml 1 Ml Vial) 0.2 mg IV Q2M PRN PRN Reason: Opioid Reversal Patient's Own ( Azelastine Hcl [ Astepro Allergy] 205 .5 Mcg/0.137 Ml [place].Pump) 1 spr EA NOSTRIL BID [facility] Last Admin: 06/07/23 09:03 Dose: Not Given Nystatin (Nystatin 100,000unit/Gm Cream 30 Gm Tube) 1 applic TOPICAL BID [facility]; Protocol Last Admin: 06/07/23 09:07 Dose: Not Given Ondansetron HCl (Ondansetron 4 Mg/2 Ml Vial) 4 mg IVP Q8HR PRN PRN Reason: Nausea And Vomiting Senna/Docusate Sodium (Sennosides-Docusate Sodium 1 Each Tab) 1 each PO BID [facility] Last Admin: 06/07/23 09:02 Dose: 1 each Sodium Biphosphate/Sodium Phosphate (Na Phos,M-B/Na Phos,Di-Ba 133 Ml Enema) 133 ml RECTAL ONCE PRN PRN Reason: Constipation Past medical history to include: Atrial fibrillation, CHF, COPD, diabetes, hypertension, hyperlipidemia, osteoarthritis, seizure disorder, obstructive sleep apnea, peripheral neuropathy, CK D stage III, kidney stones, home oxygen 3 L, right breast cancer 2 with lumpectomy radiation, obstructive sleep apnea and uses CPAP, spinal stenosis 20 low back pain, IBS, seizures 2 as a teen and one in 2009. Macular by bilateral macular degeneration. Right lower extremity skin tear follows at the wound care center. Anxiety depression Social history: At [facility] in an apartment. Occasional walker mainly electric wheelchair. Wound care. Home oxygen. Smoked for 50 years stopped in 2006. No alcohol. Physical examination: VITAL SIGNS: 97.8, 72, 18, 1 27 x 59, 98% on 3 L GENERAL: Sitting at the edge the bed, breathing slightly better EYES: Pupils equal. Conjunctiva normal. HEENT: External appearance of nose and ears normal, oral cavity grossly normal. NECK: JVD unable to assess; masses not palpable. HEART: First and second heart sounds are normal; some edema. LUNGS: Respiratory rate increased; , diminished breath sounds ABDOMEN: Soft, nontender, liver spleen not palpable, no masses palpable. PSYCH: Alert and oriented x3; mood and affect normal. MUSCULOSKELETAL:No Clubbing/cyanosis;muscles-grossly intact. OA INVESTIGATIONS, reviewed in the clinical context: 2-D echocardiogram: EF 55-60% severe pulmonary hypertension June 07: Potassium 4.7 BUN 73 creatinine 3.04 White count 11.5 hemoglobin 10.5 platelets 244 sodium 140 potassium 5.1 BUN 65 creatinine 2.73 AST 99 ALT 40 alkaline phosphate 328 Troponin I than 0.012 proBNP 3530 EKG tracing personally reviewed by me-atrial fibrillation. Rate controlled. Flow volume Chest x-ray film personally reviewed by me-interstitial prominence. Assessment and plan: -Acute severe COPD exacerbation in a previous smoker DuoNeb every 4, nebulized Perforomist, Pulmicort. Oral prednisone -Acute hypoxic respiratory failure from COPD exacerbation Supplement oxygen -Secondary Severe pulmonary hypertension from underlying COPD -Chronic hypoxic respiratory failure from overlying COPD 3 L nasal cannula at home -Chronic congestive heart failure. Doubt acute exacerbation Continue oral Lasix. 2-D echocardiogram -Obesity BMI 36.6 Weight loss measures -Persistent atrial fibrillation, rate controlled Cutback amiodarone to 200 mg a day. Lopressor 75 mg 3 times a day -Hyperlipidemia Lipitor 20 mg daily at bedtime -GERD Pepcid 20 mg a day -Diabetes mellitus type 2, chronically on insulin Continue Lantus. Accu-Cheks with sliding scale. -Hypothyroid Center 100 g a day -Essential hypertension Amlodipine 2.5 mg daily, Lopressor 75 mg 3 times a day Chronic gait dysfunction Uses a walker/motorized wheelchair at her baseline -Diabetic peripheral neuropathy -CK D stage IV likely diabetic nephropathy and hypertensive nephrosclerosis -Full code Bronchodilators. Nebulizers to continue. IV Lasix per pulmonary. IV Solu- Medrol discontinued. Prednisone 40 mg. Follow labs
[2023-06-07 20:35] LABS: Glucose,Whole Blood 285 mg/dL (70-110)
[2023-06-07] MEDS: INSULIN DETEMIR (LEVEMIR) 100 UNIT/ML SYR SQ SCH (20:46)
[2023-06-07] MEDS: LATANOPROST 0.005% OPHTH DROPS 2.5 ML BTL BOTH EYES SCH (20:46)
[2023-06-07] MEDS: AMMONIUM LACTATE 12% LOTION 225 GM BTL TOPICAL SCH (20:46)
[2023-06-07] MEDS: MELATONIN 5 MG TABLET PO SCH (20:47)
[2023-06-07] MEDS: ATORVASTATIN 20 MG TAB PO SCH (20:47)
[2023-06-07] MEDS: MONTELUKAST 10 MG TAB PO SCH (20:47)
[2023-06-07] MEDS: predniSONE 20 MG TAB PO SCH (20:47)
[2023-06-07 22:54] VITALS: TEMP 97.6
[2023-06-07] MEDS: AZELASTINE 137MCG/SPRAY EA NOSTRIL SCH (23:52)
[2023-06-08] MEDS: IPRATROPIUM-ALBUTEROL 3 ML NEB INHALATION SCH ×6 (00:54→20:49)
[2023-06-08 06:13] LABS: Glucose,Whole Blood 190 mg/dL (70-110)
[2023-06-08] MEDS: LEVOTHYROXINE 100 MCG TAB PO SCH (06:19)
[2023-06-08] MEDS: VIT A,C & E-LUTEIN-MINERALS 1 EACH TAB PO SCH ×2 (09:46→20:22)
[2023-06-08] MEDS: SENNOSIDES-DOCUSATE SODIUM 1 EACH TAB PO SCH ×2 (09:46→20:23)
[2023-06-08] MEDS: CYANOCOBALAMIN 500 MCG TAB PO SCH (09:46)
[2023-06-08] MEDS: METOPROLOL TARTRATE 25 MG TAB PO SCH ×3 (09:46→20:23)
[2023-06-08] MEDS: ALPRAZolam 0.25 MG TAB PO SCH ×2 (09:46→20:23)
[2023-06-08] MEDS: FAMOTIDINE 20 MG TAB PO SCH (09:46)
[2023-06-08] MEDS: APIXABAN 2.5 MG TABLET PO SCH ×2 (09:46→20:23)
[2023-06-08] MEDS: AMIODARONE 200 MG TAB PO SCH (09:46)
[2023-06-08] MEDS: predniSONE 20 MG TAB PO SCH (09:46)
[2023-06-08] MEDS: amLODIPine 2.5 MG TAB PO SCH (09:46)
[2023-06-08] MEDS: NYSTATIN 100,000UNIT/GM CREAM 30 GM TUBE TOPICAL SCH ×2 (09:47→20:24)
[2023-06-08] MEDS: FUROSEMIDE 10 MG/ML 4 ML VIAL IV SCH ×2 (09:47→16:28)
[2023-06-08] MEDS: AZELASTINE 137MCG/SPRAY EA NOSTRIL SCH ×2 (09:47→20:23)
[2023-06-08] MEDS: BUDESONIDE 1 MG/2 ML NEBU INHALATION SCH ×2 (10:09→20:49)
[2023-06-08] MEDS: FORMOTEROL FUMARATE 20 MCG/2 ML NEBU INHALATION SCH ×2 (10:09→20:49)
[2023-06-08 10:47] LABS: ALT 33 U/L (4-34); AST 53 U/L (14-36); African American GFR (CKD) 19 (>60 ml/min/1.73 sqM); Albumin 3.3 g/dL (3.5-5.0); Alkaline Phosphatase 312 U/L (38-126); Anion Gap 12 mmol/L; Blood Urea Nitrogen 79 mg/dL (7-17); Calcium 8.1 mg/dL (8.4-10.2); Carbon Dioxide 22 mmol/L (22-30); Chloride 105 mmol/L (98-107); Glucose 199 mg/dL (74-99); Non-African American GFR(CKD) 17 (>60 ml/min/1.73 sqM); Potassium 4.7 mmol/L (3.5-5.1); Sodium 139 mmol/L (137-145); Total Bilirubin 0.4 mg/dL (0.2-1.3); Total Protein 6.8 g/dL (6.3-8.2)
[2023-06-08 11:44] LABS: Glucose,Whole Blood 211 mg/dL (70-110)
[2023-06-08] MEDS: HYDROcodone/APAP 7.5-325MG 1 EACH TAB PO PRN (11:45)
[2023-06-08 12:15] VITALS: BMI 39.4
--- NOTE | 2023-06-08 13:17 | P.PN ---
Subjective Progress Note Date: 06/08/23 This is a 82-year-old female patient presented to the hospital because of shortness of breath. The patient has seen us in the office and the patient is oxygen dependent COPD with chronic hypoxic respiratory failure and she is O2 dependent. Her based on FEV1 is in order of 40% of predicted. She has also other comorbidities including CHF and based on echocardiogram that was done back in 2020, the patient ejection fraction of 30-35% and moderate concentric LVH and mild pulmonary hypertension with a PA pressure of 44 mmHg. She is maintained on oxygen at 3 L/m nasal cannula daily basis. She has also issues with diabetes mellitus, hypertension, spinal stenosis, ventral hernia, acid reflux, headaches, depression, spinal stenosis, and history of breast cancer and she was had previous lumpectomies and radiation therapy, seizure disorder, macular degeneration and the patient has impaired vision and obstructive sleep apnea and she has used CPAP therapy in the past. She has also issues with ch ronic kidney disease, stage III chronic kidney failure, a chest fibrillation, and osteoarthritis. During this current admission, the patient's BUN was 70 with a creatinine of 3.04, sodium level is at 140, troponin was negative and a proBNP level was 3530. Coagulation profile was normal. The previous echo was 11.5 with a hemoglobin of 10.5 and a platelet count of 244. The patient's chest x-ray was consistent with cardiomegaly and pulmonary vessel congestion/CHF. There was also trace left-sided pleural effusion. The patient is a former smoker and she cares more than [id number] smoking history. Her EKG is consistent with atrial fibrillation and she has a low voltage EKG with a heart rate of 71. On 06/08/2023, the patient is feeling better and the patient is less short of breath compared to yesterday. The patient remains on oxygen at 3 L per minute nasal cannula with a pulse ox of 100%. The patient is stable. She is on Lasix 40 mg IV every 12 hours. She is also on bronchodilators. She is on a prednisone burst taper starting with 40 mg by mouth on a daily basis. She remains on long-term anticoagulation with Eliquis. She is known to have congestion heart failure with systolic heart failure and ejection fraction of 30-35%. She is also known to have chronic A. fib and various other comorbidities as discussed earlier. Blood work from today shows a BUN of 79 and a creatinine of 2.6 which is improved compared to yesterday and his sodium level is at 139 with a potassium level of 4.7. Alkaline phosphatase slightly elevated at 312. ALT and AST are both within normal limits. Serum albumin is at 3.3. Blood sugar slightly elevated related to steroids. Objective - Vital Signs Vital signs: Vital Signs Temp 97.6 F 06/07/23 20:00 Pulse 73 06/08/23 10:09 Resp 17 06/08/23 09:40 BP 123/71 06/08/23 09:40 Pulse Ox 100 06/08/23 10:12 FiO2 Intake & Output 06/07/23 06/08/23 06/08/23 18:59 06:59 18:59 Intake Total 780 658 180 Output Total 550 Balance 780 108 180 Weight 107.5 kg Intake: Oral 780 658 180 Output: Urine 550 Other: Voiding Method External Catheter External Catheter - Exam GENERAL: BMI 36.6, sitting up in a chair awake short of breath. The patient is currently on 3 L of oxygen nasal cannula EYES: Pupils equal. Conjunctiva normal. HEENT: External appearance of nose and ears normal, oral cavity grossly normal. NECK: JVD unable to assess; masses not palpable. HEART: First and second heart sounds are normal; so edema. LUNGS: Respiratory rate increased; but able to speak in full sentences, diminished breath sounds or wheezing. ABDOMEN: Soft, nontender, liver spleen not palpable, no masses palpable. PSYCH: Alert and oriented x3; mood and affect normal. MUSCULOSKELETAL:No Clubbing/cyanosis;muscles-grossly intact. OA, increased edema lower extremities bilaterally NEUROLOGICAL: Cranial nerves grossly intact; no facial asymmetry, power and sensation grossly intact. LYMPHATICS: No lymph nodes palpable in the axilla and neck - Labs CBC & Chem 7: 06/06/23 10:14 06/08/23 09:12 Labs: Abnormal Lab Results - Last 24 Hours (Table) 06/07/23 06/08/23 Range/Units 20:34 06:12 POC Glucose (mg/dL) 285 H 190 H (70-110) mg/dL Microbiology - Last 24 Hours (Table) 06/06/23 10:16 Blood Culture - Preliminary Blood Assessment and Plan Plan: Shortness of breath, multifactorial. Patient has a combination of COPD and CHF and some limited fluid overload contributing to her shortness of breath. Cl[facility] tr[facility] improving and the patient is currently on 3 L of oxygen by nasal cannula Severe COPD with an FEV1 of 40% of predicted Chronic systolic heart failure with an EF of around 30-35% and secondary p ulmonary hypertension Chronic stage IV kidney disease Chronic atrial fibrillation, rate is controlled and the patient is currently on amiodarone, metoprolol Eliquis 2.5 mg twice a day Obstructive sleep apnea maintenance CPAP therapy on outpatient basis Hypertension Hyperlipidemia Diabetes mellitus type 2 Hypothyroidism Cervical spine stenosis Chronic gait dysfunction, Macular degeneration Obesity DNR/DNI CODE STATUS Plan Overall condition is stable. Continue diuretics Monitor renal function Patient is a negative fluid balance Titrate FiO2 Continue the prednisone burst taper Management of blood sugar per medicine and the patient is currently on Levemir insulin 20 units in addition to a sliding scale coverage Continue anticoagulation with Eliquis 2.5 mg twice a day Continue metoprolol continue amiodarone we'll continue to follow
--- NOTE | 2023-06-08 13:23 | P.PN ---
Subjective HISTORY OF PRESENT ILLNESS: This is a 82-year-old female with a past medical history significant for hypertension, hyperlipidemia, COPD, oxygen dependence, former smoker, and atrial fibrillation. Patient follows in the office with Dr. Umanzor. We have been asked to see the patient in consultation for congestive heart failure. Patient examined at the bedside. Patient presented to the hospital with chief complaint of shortness of breath. Patient is being treated for COPD exacerbation as well as congestive heart failure exacerbation. The patient received IV Lasix yesterday and has been transitioned to oral Lasix today. She denies any chest pain or pressure. She continues to report shortness of breath at the time of examination. She reports some mild lower extremity edema which is worse than her baseline. The patient does not have anticoagulation listed on her home medication list. She states that she is taking Eliquis for her atrial fibrillation. She states that she goes in and out of atrial fibrillation and is not and it all the time. Patient's vital signs this morning are stable. * EKG reveals atrial fibrillation with controlled ventricular rate * Chest xray cardiomegaly with pulmonary vascular congestion and trace left pleural effusion. This suggests CHF exacerbation. * Laboratory data: WBC 11.5. Hemoglobin 10.5. Platelet count 244. Sodium 140. Potassium 4.7. BUN 73. Creatinine 3.04. Troponin negative 1. ProBNP 3530. * Current home cardiac medications include Norvasc 2.5 mg daily, metoprolol tartrate 75 mg 3 times a day, Lasix 40 mg daily, Lipitor 20 mg at night, and amiodarone 200 mg twice a day * Most recent echocardiogram obtained in August 2021 revealed ejection fraction 30-35%, mild tricuspid regurgitation, mild pulmonary hypertension 06/08/2023 Patient examined this morning. Patient is sitting up in the chair. She denies chest pain or pressure. She continues to report shortness of breath. She was started on IV Lasix per pulmonary yesterday. Her lower extremity edema is improving. Echocardiogram performed reveals normal LV systolic function, severe pulmonary hypertension, and mild aortic stenosis. PHYSICAL EXAM: VITAL SIGNS: Reviewed. GENERAL: Well-developed in no acute distress. HEENT: Head is normocephalic. Pupils are equal, round. Sclerae anicteric. Mucous membranes of the mouth are moist. Neck supple. No JVD or thyromegaly LUNGS: Respirations even and unlabored. Lungs diminished laterally. HEART: Irregular rate and rhythm. S1 and S2 heard. ABDOMEN: Soft. Nondistended. Nontender. EXTREMITIES: Normal range of motion. No clubbing or cyanosis. Peripheral pulses intact. 1+ bilateral lower extremity edema NEUROLOGIC: Awake and alert. Oriented x 3. ASSESSMENT: Shortness of breath Acute COPD exacerbation Acute on chronic heart failure with reduced ejection fraction, 3035%, with improved EF, now 55-60% Paroxysmal atrial fibrillation History of COPD with home oxygen Chronic kidney disease Hypertension Hyperlipidemia Former nicotine dependence PLAN: Continue current cardiac medications Continue IV lasix per pulmonary medicine Daily weights, accurate I&O, and monitoring of kidney function Further recommendations pending patient course Nurse practitioner note has been reviewed by physician. Signing provider agrees with the documented findings, assessment, and plan of care. Objective - Vital Signs Vital signs: Vital Signs Temp 97.6 F 06/07/23 20:00 Pulse 81 06/08/23 13:11 Resp 20 06/08/23 11:30 BP 138/68 06/08/23 11:30 Pulse Ox 100 06/08/23 11:30 FiO2 Intake & Output 06/07/23 06/08/23 06/08/23 18:59 06:59 18:59 Intake Total 780 658 180 Output Total 550 650 Balance 780 108 -470 Weight 107.5 kg 107.5 kg Intake: Oral 780 658 180 Output: Urine 550 650 Other: Voiding Method External Catheter External Catheter - Labs CBC & Chem 7: 06/06/23 10:14 06/08/23 09:12 Labs: Abnormal Lab Results - Last 24 Hours (Table) 06/07/23 06/08/23 06/08/23 Range/Units 20:34 06:12 09:12 BUN 79 H (7-17) mg/dL Creatinine 2.60 H (0.52-1.04) mg/dL Glucose 199 H (74-99) mg/dL POC Glucose (mg/dL) 285 H 190 H (70-110) mg/dL Calcium 8.1 L (8.4-10.2) mg/dL AST 53 H (14-36) U/L Alkaline Phosphatase 312 H (38-126) U/L Albumin 3.3 L (3.5-5.0) g/dL 06/08/23 Range/Units 11:43 BUN (7-17) mg/dL Creatinine (0.52-1.04) mg/dL Glucose (74-99) mg/dL POC Glucose (mg/dL) 211 H (70-110) mg/dL Calcium (8.4-10.2) mg/dL AST (14-36) U/L Alkaline Phosphatase (38-126) U/L Albumin (3.5-5.0) g/dL Microbiology - Last 24 Hours (Table) 06/06/23 10:16 Blood Culture - Preliminary Blood
[2023-06-08 16:50] LABS: Glucose,Whole Blood 233 mg/dL (70-110)
--- NOTE | 2023-06-08 18:25 | P.PN ---
Progress Note - Text Progress Note Date: 06/08/23 Chief Complaint: Short of breath This is a pleasant 82-year-old patient who follows with visiting physicians. [employer] Dr. Camp. Baseline patient is short of breath but more so in the last 10 days. Wheezing. No cough no fever no chills. Appetite is fair. Has chronic lower extremity edema. Normally sleeps using one pillow. No chest pain. Uses a wheelchair to get about. Admitted with acute COPD exacerbation and possible acute CHF exacerbation. June 07: Getting slightly better. Short of breath. Eating well. Has family visiting. Sitting at the edge of the bed. Dr. Evangelista felt the patient may have some fluid overload. Given IV Lasix. June 08: Using CPAP. Shortness of breath. Improvement. Remains on IV Lasix 40 mg every 12. Some negative fluid balance. On 3 L nasal cannula. Eating well Active Medications Acetaminophen (Acetaminophen Tab 325 Mg Tab) 650 mg PO Q6HR PRN PRN Reason: Mild Pain or Fever > 100.5 Hydrocodone Bitart/Acetaminophen (Hydrocodone/Apap 7.5-325mg 1 Each Tab) 1 each PO Q6H PRN PRN Reason: Severe Pain (Scale 7 to 10) Last Admin: 06/08/23 11:45 Dose: 1 each Albuterol/Ipratropium (Ipratropium-Albuterol 3 Ml Neb) 3 ml INHALATION RT-Q4H PRN PRN Reason: Shortness Of Breath Or Wheezing Albuterol/Ipratropium (Ipratropium-Albuterol 3 Ml Neb) 3 ml INHALATION RT-Q4H [facility] Last Admin: 06/08/23 16:15 Dose: 3 ml Alprazolam (Alprazolam 0.25 Mg Tab) 0.25 mg PO BID [facility] Last Admin: 06/08/23 09:46 Dose: 0.25 mg Amiodarone HCl (Amiodarone 200 Mg Tab) 200 mg PO DAILY [facility] Last Admin: 06/08/23 09:46 Dose: 200 mg Amlodipine Besylate (Amlodipine 2.5 Mg Tab) 2.5 mg PO DAILY [facility] Last Admin: 06/08/23 09:46 Dose: 2.5 mg Apixaban (Apixaban 2.5 Mg Tablet) 2.5 mg PO BID [facility]; Protocol Last Admin: 06/08/23 09:46 Dose: 2.5 mg Atorvastatin Calcium (Atorvastatin 20 Mg Tab) 20 mg PO [facility] Last Admin: 06/07/23 20:47 Dose: 20 mg Azelastine HCl (Azelastine 137mcg/[place]) 1 spray EA NOSTRIL BID [facility] Last Admin: 06/08/23 09:47 Dose: 1 spray Budesonide (Budesonide 1 Mg/2 Ml Nebu) 1 mg INHALATION RT-BID [facility] Last Admin: 06/08/23 10:09 Dose: 1 mg Calcium Carbonate/Glycine (Calcium Carbonate 500 Mg Chewable) 1,000 mg PO Q4HR PRN PRN Reason: Dyspepsia Cyanocobalamin (Cyanocobalamin 500 Mcg Tab) 1,000 mcg PO DAILY [facility] Last Admin: 06/08/23 09:46 Dose: 1,000 mcg Famotidine (Famotidine 20 Mg Tab) 20 mg PO DAILY [facility] Last Admin: 06/08/23 09:46 Dose: 20 mg Formoterol Fumarate (Formoterol Fumarate 20 Mcg/2 Ml Nebu) 20 mcg INHALATION RT-BID [facility] Last Admin: 06/08/23 10:09 Dose: 20 mcg Furosemide (Furosemide 10 Mg/Ml 4 Ml Vial) 40 mg IV 0900,1700 [facility] Last Admin: 06/08/23 16:28 Dose: 40 mg Insulin Detemir (Insulin Detemir (Levemir) 100 Unit/Ml Syr) 20 unit SQ [facility] Last Admin: 06/07/23 20:46 Dose: 20 unit Lactic Acid (Ammonium Lactate 12% Lotion 225 Gm Btl) 1 applic TOPICAL [facility]; Protocol Last Admin: 06/07/23 20:46 Dose: 1 applic Latanoprost (Latanoprost 0.005% Ophth Drops 2.5 Ml Btl) 1 drops BOTH EYES [facility] Last Admin: 06/07/23 20:46 Dose: 1 drops Levothyroxine Sodium (Levothyroxine 100 Mcg Tab) 100 mcg PO 0630 [facility] Last Admin: 06/08/23 06:19 Dose: 100 mcg Melatonin (Melatonin 5 Mg Tablet) 5 mg PO [facility] Last Admin: 06/07/23 20:47 Dose: 5 mg Metoprolol Tartrate (Metoprolol Tartrate 25 Mg Tab) 75 mg PO TID [facility] Last Admin: 06/08/23 16:28 Dose: 75 mg Montelukast Sodium (Montelukast 10 Mg Tab) 10 mg PO HS [facility] Last Admin: 06/07/23 20:47 Dose: 10 mg Multivitamins/Minerals (Vit A,C & A-Utnvpu-Liupmuov 1 Each Tab) 1 each PO BID [facility] Last Admin: 06/08/23 09:46 Dose: 1 each Naloxone HCl (Naloxone 0.4 Mg/Ml 1 Ml Vial) 0.2 mg IV Q2M PRN PRN Reason: Opioid Reversal Nystatin (Nystatin 100,000unit/Gm Cream 30 Gm Tube) 1 applic TOPICAL BID [facility]; Protocol Last Admin: 06/08/23 09:47 Dose: 1 applic Ondansetron HCl (Ondansetron 4 Mg/2 Ml Vial) 4 mg IVP Q8HR PRN PRN Reason: Nausea And Vomiting Prednisone (Prednisone 20 Mg Tab) 40 mg PO DAILY [facility] Last Admin: 06/08/23 09:46 Dose: 40 mg Senna/Docusate Sodium (Sennosides-Docusate Sodium 1 Each Tab) 1 each PO BID [facility] Last Admin: 06/08/23 09:46 Dose: 1 each Sodium Biphosphate/Sodium Phosphate (Na Phos,M-B/Na Phos,Di-Ba 133 Ml Enema) 133 ml RECTAL ONCE PRN PRN Reason: Constipation Past medical history to include: Atrial fibrillation, CHF, COPD, diabetes, hypertension, hyperlipidemia, osteoarthritis, seizure disorder, obstructive sleep apnea, peripheral neuropathy, CK D stage III, kidney stones, home oxygen 3 L, right breast cancer 2 with lumpectomy radiation, obstructive sleep apnea and uses CPAP, spinal stenosis 20 low back pain, IBS, seizures 2 as a teen and one in 2009. Macular by bilateral macular degeneration. Right lower extremity skin tear follows at the wound care center. Anxiety depression Social history: At [facility] in an apartment. Occasional walker mainly electric wheelchair. Wound care. Home oxygen. Smoked for 50 years stopped in 2006. No alcohol. Physical examination: VITAL SIGNS: Afebrile, 72, 20, 130/68, 100% on 3 L GENERAL: Reclining in a chair. Some shortness of breath EYES: Pupils equal. Conjunctiva normal. HEENT: External appearance of nose and ears normal, oral cavity grossly normal. NECK: JVD unable to assess; masses not palpable. HEART: First and second heart sounds are normal; some edema. LUNGS: Respiratory rate increased; , diminished breath sounds ABDOMEN: Soft, nontender, liver spleen not palpable, no masses palpable. PSYCH: Alert and oriented x3; mood and affect normal. MUSCULOSKELETAL:No Clubbing/cyanosis;muscles-grossly intact. OA INVESTIGATIONS, reviewed in the clinical context: June 08: Sodium 139 potassium 4.7 BUN 79 creatinine 2.6 2-D echocardiogram: EF 55-60% severe pulmonary hypertension June 07: Potassium 4.7 BUN 73 creatinine 3.04 White count 11.5 hemoglobin 10.5 platelets 244 sodium 140 potassium 5.1 BUN 65 creatinine 2.73 AST 99 ALT 40 alkaline phosphate 328 Troponin I than 0.012 proBNP 3530 EKG tracing personally reviewed by me-atrial fibrillation. Rate controlled. Flow volume Chest x-ray film personally reviewed by me-interstitial prominence. Assessment and plan: -Acute severe COPD exacerbation in a previous smoker: Some improvement DuoNeb every 4, nebulized Perforomist, Pulmicort. Oral prednisone -Acute hypoxic respiratory failure from COPD exacerbation: Better 3 L of oxygen -Secondary Severe pulmonary hypertension from underlying COPD -Chronic hypoxic respiratory failure from overlying COPD 3 L nasal cannula at home -Acute on Chronic congestive heart failure. Exacerbation from diastolic dysfun ction. EF 50-60% IV Lasix 40 mg every 12. -Obesity BMI 36.6 Weight loss measures -Persistent atrial fibrillation, rate controlled amiodarone to 200 mg a day. Lopressor 75 mg 3 times a day -Hyperlipidemia Lipitor 20 mg daily at bedtime -GERD Pepcid 20 mg a day -Diabetes mellitus type 2, chronically on insulin Continue Lantus. Accu-Cheks with sliding scale. -Hypothyroid Synthroid 100 g a day -Essential hypertension Amlodipine 2.5 mg daily, Lopressor 75 mg 3 times a day Chronic gait dysfunction Uses a walker/motorized wheelchair at her baseline -Diabetic peripheral neuropathy -CK D stage IV likely diabetic nephropathy and hypertensive nephrosclerosis -Full code Bronchodilators. Nebulizers to continue. IV Lasix per pulmonary. Prednisone 40 mg. follow with pulmonary and cardiology
[2023-06-08 20:09] LABS: Glucose,Whole Blood 318 mg/dL (70-110)
[2023-06-08] MEDS: MONTELUKAST 10 MG TAB PO SCH (20:22)
[2023-06-08] MEDS: ATORVASTATIN 20 MG TAB PO SCH (20:22)
[2023-06-08] MEDS: AMMONIUM LACTATE 12% LOTION 225 GM BTL TOPICAL SCH (20:23)
[2023-06-08] MEDS: MELATONIN 5 MG TABLET PO SCH (20:23)
[2023-06-08] MEDS: LATANOPROST 0.005% OPHTH DROPS 2.5 ML BTL BOTH EYES SCH (20:24)
[2023-06-08] MEDS: INSULIN DETEMIR (LEVEMIR) 100 UNIT/ML SYR SQ SCH (20:26)
[2023-06-09] MEDS: IPRATROPIUM-ALBUTEROL 3 ML NEB INHALATION SCH ×7 (00:47→23:29)
[2023-06-09] MEDS: HYDROcodone/APAP 7.5-325MG 1 EACH TAB PO PRN ×2 (02:32→23:21)
[2023-06-09 06:09] LABS: Glucose,Whole Blood 129 mg/dL (70-110)
[2023-06-09] MEDS: LEVOTHYROXINE 100 MCG TAB PO SCH (06:25)
[2023-06-09] MEDS: BUDESONIDE 1 MG/2 ML NEBU INHALATION SCH ×2 (08:41→20:11)
[2023-06-09] MEDS: FORMOTEROL FUMARATE 20 MCG/2 ML NEBU INHALATION SCH ×2 (09:04→20:11)
[2023-06-09] MEDS: METOPROLOL TARTRATE 25 MG TAB PO SCH ×3 (09:07→21:16)
[2023-06-09] MEDS: amLODIPine 2.5 MG TAB PO SCH (09:07)
[2023-06-09] MEDS: APIXABAN 2.5 MG TABLET PO SCH ×2 (09:07→21:16)
[2023-06-09] MEDS: FUROSEMIDE 10 MG/ML 4 ML VIAL IV SCH ×2 (09:07→17:10)
[2023-06-09] MEDS: predniSONE 20 MG TAB PO SCH (09:07)
[2023-06-09] MEDS: SENNOSIDES-DOCUSATE SODIUM 1 EACH TAB PO SCH ×2 (09:07→21:16)
[2023-06-09] MEDS: FAMOTIDINE 20 MG TAB PO SCH (09:07)
[2023-06-09] MEDS: AMIODARONE 200 MG TAB PO SCH (09:07)
[2023-06-09] MEDS: ALPRAZolam 0.25 MG TAB PO SCH ×2 (09:07→21:16)
[2023-06-09] MEDS: CYANOCOBALAMIN 500 MCG TAB PO SCH (09:07)
[2023-06-09] MEDS: VIT A,C & E-LUTEIN-MINERALS 1 EACH TAB PO SCH ×2 (09:08→21:16)
[2023-06-09] MEDS: AZELASTINE 137MCG/SPRAY EA NOSTRIL SCH ×2 (09:08→21:16)
[2023-06-09] MEDS: NYSTATIN 100,000UNIT/GM CREAM 30 GM TUBE TOPICAL SCH ×2 (09:08→21:16)
[2023-06-09 11:36] LABS: Glucose,Whole Blood 172 mg/dL (70-110)
[2023-06-09] MEDS: DAPAGLIFLOZIN PROPANEDIOL 10 MG TABLET PO SCH (13:35)
--- NOTE | 2023-06-09 13:57 | P.PN ---
Subjective HISTORY OF PRESENT ILLNESS: This is a 82-year-old female with a past medical history significant for hypertension, hyperlipidemia, COPD, oxygen dependence, former smoker, and atrial fibrillation. Patient follows in the office with Dr. Umanzor. We have been asked to see the patient in consultation for congestive heart failure. Patient examined at the bedside. Patient presented to the hospital with chief complaint of shortness of breath. Patient is being treated for COPD exacerbation as well as congestive heart failure exacerbation. The patient received IV Lasix yesterday and has been transitioned to oral Lasix today. She denies any chest pain or pressure. She continues to report shortness of breath at the time of examination. She reports some mild lower extremity edema which is worse than her baseline. The patient does not have anticoagulation listed on her home medication list. She states that she is taking Eliquis for her atrial fibrillation. She states that she goes in and out of atrial fibrillation and is not and it all the time. Patient's vital signs this morning are stable. * EKG reveals atrial fibrillation with controlled ventricular rate * Chest xray cardiomegaly with pulmonary vascular congestion and trace left pleural effusion. This suggests CHF exacerbation. * Laboratory data: WBC 11.5. Hemoglobin 10.5. Platelet count 244. Sodium 140. Potassium 4.7. BUN 73. Creatinine 3.04. Troponin negative 1. ProBNP 3530. * Current home cardiac medications include Norvasc 2.5 mg daily, metoprolol tartrate 75 mg 3 times a day, Lasix 40 mg daily, Lipitor 20 mg at night, and amiodarone 200 mg twice a day * Most recent echocardiogram obtained in August 2021 revealed ejection fraction 30-35%, mild tricuspid regurgitation, mild pulmonary hypertension 06/08/2023 Patient examined this morning. Patient is sitting up in the chair. She denies chest pain or pressure. She continues to report shortness of breath. She was started on IV Lasix per pulmonary yesterday. Her lower extremity edema is improving. Echocardiogram performed reveals normal LV systolic function, severe pulmonary hypertension, and mild aortic stenosis. 06/09/2023 Patient examined this morning. She is sitting up in the chair. Patient states that she is wanting to go home. She denies any chest pain or pressure. She reports her shortness of breath is close to her baseline. She reports wheezing this morning. She reports improvement in her lower extremity edema. She remains on IV Lasix PHYSICAL EXAM: VITAL SIGNS: Reviewed. GENERAL: Well-developed in no acute distress. HEENT: Head is normocephalic. Pupils are equal, round. Sclerae anicteric. Mucous membranes of the mouth are moist. Neck supple. No JVD or thyromegaly LUNGS: Respirations even and unlabored. Lungs diminished bilaterally with wheezing noted HEART: Irregular rate and rhythm. S1 and S2 heard. ABDOMEN: Soft. Nondistended. Nontender. EXTREMITIES: Normal range of motion. No clubbing or cyanosis. Peripheral pulses intact. 1+ bilateral lower extremity edema NEUROLOGIC: Awake and alert. Oriented x 3. ASSESSMENT: Shortness of breath Acute COPD exacerbation Acute on chronic heart failure with reduced ejection fraction, 3035%, with improved EF, now 55-60% Paroxysmal atrial fibrillation History of COPD with home oxygen Chronic kidney disease Hypertension Hyperlipidemia Former nicotine dependence PLAN: Continue current cardiac medications Continue IV lasix per pulmonary medicine Daily weights, accurate I&O, and monitoring of kidney function Further recommendations pending patient course Nurse practitioner note has been reviewed by physician. Signing provider agrees with the documented findings, assessment, and plan of care. Objective - Vital Signs Vital signs: Vital Signs Temp 97.6 F 06/07/23 20:00 Pulse 75 06/09/23 12:20 Resp 20 06/09/23 12:08 BP 137/74 06/09/23 12:08 Pulse Ox 98 06/09/23 12:08 FiO2 Intake & Output 06/08/23 06/09/23 06/09/23 18:59 06:59 18:59 Intake Total 1130 118 Output Total 1450 600 Balance -320 -600 118 Weight 107.5 kg 108.2 kg Intake: Oral 1130 118 Output: Urine 1450 600 Other: Voiding Method External Catheter External Catheter Diaper External Catheter # Voids 2 # Bowel Movements 1 - Labs CBC & Chem 7: 06/06/23 10:14 06/08/23 09:12 Labs: Abnormal Lab Results - Last 24 Hours (Table) 06/08/23 06/08/23 06/09/23 Range/Units 16:49 20:08 06:07 POC Glucose (mg/dL) 233 H 318 H 129 H (70-110) mg/dL 06/09/23 Range/Units 11:33 POC Glucose (mg/dL) 172 H (70-110) mg/dL Microbiology - Last 24 Hours (Table) 06/06/23 10:16 Blood Culture - Preliminary Blood
--- NOTE | 2023-06-09 14:42 | P.PN ---
Subjective Progress Note Date: 06/09/23 This is a 82-year-old female patient presented to the hospital because of shortness of breath. The patient has seen us in the office and the patient is oxygen dependent COPD with chronic hypoxic respiratory failure and she is O2 dependent. Her based on FEV1 is in order of 40% of predicted. She has also other comorbidities including CHF and based on echocardiogram that was done back in 2020, the patient ejection fraction of 30-35% and moderate concentric LVH and mild pulmonary hypertension with a PA pressure of 44 mmHg. She is maintained on oxygen at 3 L/m nasal cannula daily basis. She has also issues with diabetes mellitus, hypertension, spinal stenosis, ventral hernia, acid reflux, headaches, depression, spinal stenosis, and history of breast cancer and she was had previous lumpectomies and radiation therapy, seizure disorder, macular degeneration and the patient has impaired vision and obstructive sleep apnea and she has used CPAP therapy in the past. She has also issues with ch ronic kidney disease, stage III chronic kidney failure, a chest fibrillation, and osteoarthritis. During this current admission, the patient's BUN was 70 with a creatinine of 3.04, sodium level is at 140, troponin was negative and a proBNP level was 3530. Coagulation profile was normal. The previous echo was 11.5 with a hemoglobin of 10.5 and a platelet count of 244. The patient's chest x-ray was consistent with cardiomegaly and pulmonary vessel congestion/CHF. There was also trace left-sided pleural effusion. The patient is a former smoker and she cares more than [id number] smoking history. Her EKG is consistent with atrial fibrillation and she has a low voltage EKG with a heart rate of 71. On 06/08/2023, the patient is feeling better and the patient is less short of breath compared to yesterday. The patient remains on oxygen at 3 L per minute nasal cannula with a pulse ox of 100%. The patient is stable. She is on Lasix 40 mg IV every 12 hours. She is also on bronchodilators. She is on a prednisone burst taper starting with 40 mg by mouth on a daily basis. She remains on long-term anticoagulation with Eliquis. She is known to have congestion heart failure with systolic heart failure and ejection fraction of 30-35%. She is also known to have chronic A. fib and various other comorbidities as discussed earlier. Blood work from today shows a BUN of 79 and a creatinine of 2.6 which is improved compared to yesterday and his sodium level is at 139 with a potassium level of 4.7. Alkaline phosphatase slightly elevated at 312. ALT and AST are both within normal limits. Serum albumin is at 3.3. Blood sugar slightly elevated related to steroids. On 06/09/2023, seeing the patient for a follow-up. Still bronchospastic and wheezy and she is still having some issues with shortness of breath. She has diabetes adequately and the patient is currently on Lasix 40 mg IV every 12 hours. She has been transitioned to prednisone burst taper and the patient is also on bronchodilators with DuoNeb updrafts. She is also on Pulmicort Respules and Perforomist. Lower extremity was gradually improving. She is known to have cardiomyopathy with an ejection fraction of 30-35%. She is also known to have chronic atrial fibrillation. She remains on anticoagulation. No blood work from today. Yesterday creatinine was lower at 2.6. Objective - Vital Signs Vital signs: Vital Signs Temp 97.6 F 06/07/23 20:00 Pulse 73 06/09/23 09:07 Resp 20 06/09/23 09:06 BP 147/77 06/09/23 09:06 Pulse Ox 98 06/09/23 09:06 FiO2 Intake & Output 06/08/23 06/09/23 06/09/23 18:59 06:59 18:59 Intake Total 1130 118 Output Total 1450 600 Balance -320 -600 118 Weight 107.5 kg 108.2 kg Intake: Oral 1130 118 Output: Urine 1450 600 Other: Voiding Method External Catheter External Catheter Diaper External Catheter # Voids 2 # Bowel Movements 1 - Exam GENERAL: BMI 36.6, sitting up in a chair awake short of breath. The patient is currently on 3 L of oxygen nasal cannula EYES: Pupils equal. Conjunctiva normal. HEENT: External appearance of nose and ears normal, oral cavity grossly normal. NECK: JVD unable to assess; masses not palpable. HEART: First and second heart sounds are normal; so edema. LUNGS: Respiratory rate increased; but able to speak in full sentences, diminished breath sounds or wheezing. ABDOMEN: Soft, nontender, liver spleen not palpable, no masses palpable. PSYCH: Alert and oriented x3; mood and affect normal. MUSCULOSKELETAL:No Clubbing/cyanosis;muscles-grossly intact. OA, increased edema lower extremities bilaterally NEUROLOGICAL: Cranial nerves grossly intact; no facial asymmetry, power and sensation grossly intact. LYMPHATICS: No lymph nodes palpable in the axilla and neck - Labs CBC & Chem 7: 06/06/23 10:14 06/08/23 09:12 Labs: Abnormal Lab Results - Last 24 Hours (Table) 06/08/23 06/08/23 06/08/23 Range/Units 11:43 16:49 20:08 POC Glucose (mg/dL) 211 H 233 H 318 H (70-110) mg/dL 06/09/23 Range/Units 06:07 POC Glucose (mg/dL) 129 H (70-110) mg/dL Microbiology - Last 24 Hours (Table) 06/06/23 10:16 Blood Culture - Preliminary Blood Assessment and Plan Plan: Shortness of breath, multifactorial. Patient has a combination of COPD and CHF and some limited fluid overload contributing to her shortness of breath. Clinically improving and the patient is currently on 3 L of oxygen by nasal cannula Severe COPD with an FEV1 of 40% of predicted Chronic systolic heart failure with an EF of around 30-35% and secondary pulmonary hypertension Chronic stage IV kidney disease Chronic atrial fibrillation, rate is controlled and the patient is currently on amiodarone, metoprolol Eliquis 2.5 mg twice a day Obstructive sleep apnea maintenance CPAP therapy on outpatient basis Hypertension Hyperlipidemia Diabetes mellitus type 2 Hypothyroidism Cervical spine stenosis Chronic gait dysfunction, Macular degeneration Obesity DNR/DNI CODE STATUS Plan Overall condition is stable. Continue diuretics, the patient remains on Lasix 40 mg IV every 12 hours. The fluid balance is negative in the lower extremity edema essentially improving Monitor renal function, repeat labs in a.m. Patient is a negative fluid balance Titrate FiO2, currently on 3 L Continue the prednisone burst taper Management of blood sugar per medicine and the patient is currently on Levemir insulin 20 units in addition to a sliding scale coverage Continue anticoagulation with Eliquis 2.5 mg twice a day Continue metoprolol continue amiodarone we'll continue to follow
[2023-06-09 16:22] LABS: Glucose,Whole Blood 269 mg/dL (70-110)
[2023-06-09 20:16] LABS: Glucose,Whole Blood 308 mg/dL (70-110)
[2023-06-09] MEDS: AMMONIUM LACTATE 12% LOTION 225 GM BTL TOPICAL SCH (21:15)
[2023-06-09] MEDS: INSULIN DETEMIR (LEVEMIR) 100 UNIT/ML SYR SQ SCH (21:16)
[2023-06-09] MEDS: MELATONIN 5 MG TABLET PO SCH (21:16)
[2023-06-09] MEDS: LATANOPROST 0.005% OPHTH DROPS 2.5 ML BTL BOTH EYES SCH (21:16)
[2023-06-09] MEDS: MONTELUKAST 10 MG TAB PO SCH (21:16)
[2023-06-09] MEDS: ATORVASTATIN 20 MG TAB PO SCH (21:16)
--- NOTE | 2023-06-09 21:16 | P.PN ---
Progress Note - Text Progress Note Date: 06/09/23 Chief Complaint: Short of breath This is a pleasant 82-year-old patient who follows with visiting physicians. [employer] Dr. Camp. Baseline patient is short of breath but more so in the last 10 days. Wheezing. No cough no fever no chills. Appetite is fair. Has chronic lower extremity edema. Normally sleeps using one pillow. No chest pain. Uses a wheelchair to get about. Admitted with acute COPD exacerbation and possible acute CHF exacerbation. June 07: Getting slightly better. Short of breath. Eating well. Has family visiting. Sitting at the edge of the bed. Dr. Evangelista felt the patient may have some fluid overload. Given IV Lasix. June 08: Using CPAP. Shortness of breath. Improvement. Remains on IV Lasix 40 mg every 12. Some negative fluid balance. On 3 L nasal cannula. Eating well June 09: Sitting up, breathing a bit better. Using CPAP. Oral intake good. Some edema. Remains on IV Lasix. Active Medications Acetaminophen (Acetaminophen Tab 325 Mg Tab) 650 mg PO Q6HR PRN PRN Reason: Mild Pain or Fever > 100.5 Hydrocodone Bitart/Acetaminophen (Hydrocodone/Apap 7.5-325mg 1 Each Tab) 1 each PO Q6H PRN PRN Reason: Severe Pain (Scale 7 to 10) Last Admin: 06/09/23 02:32 Dose: 1 each Albuterol/Ipratropium (Ipratropium-Albuterol 3 Ml Neb) 3 ml INHALATION RT-Q4H PRN PRN Reason: Shortness Of Breath Or Wheezing Albuterol/Ipratropium (Ipratropium-Albuterol 3 Ml Neb) 3 ml INHALATION RT-Q4H REPLACED BY [facility] Last Admin: 06/09/23 20:11 Dose: Not Given Alprazolam (Alprazolam 0.25 Mg Tab) 0.25 mg PO BID REPLACED BY [facility] Last Admin: 06/09/23 09:07 Dose: 0.25 mg Amiodarone HCl (Amiodarone 200 Mg Tab) 200 mg PO DAILY REPLACED BY [facility] Last Admin: 06/09/23 09:07 Dose: 200 mg Amlodipine Besylate (Amlodipine 2.5 Mg Tab) 2.5 mg PO DAILY REPLACED BY [facility] Last Admin: 06/09/23 09:07 Dose: 2.5 mg Apixaban (Apixaban 2.5 Mg Tablet) 2.5 mg PO BID REPLACED BY [facility]; Protocol Last Admin: 06/09/23 09:07 Dose: 2.5 mg Atorvastatin Calcium (Atorvastatin 20 Mg Tab) 20 mg PO HS REPLACED BY [facility] Last Admin: 06/08/23 20:22 Dose: 20 mg Azelastine HCl (Azelastine 137mcg/Medora) 1 spray EA NOSTRIL BID REPLACED BY [facility] Last Admin: 06/09/23 09:08 Dose: 1 spray Budesonide (Budesonide 1 Mg/2 Ml Nebu) 1 mg INHALATION RT-BID REPLACED BY [facility] Last Admin: 06/09/23 20:11 Dose: Not Given Calcium Carbonate/Glycine (Calcium Carbonate 500 Mg Chewable) 1,000 mg PO Q4HR PRN PRN Reason: Dyspepsia Cyanocobalamin (Cyanocobalamin 500 Mcg Tab) 1,000 mcg PO DAILY REPLACED BY [facility] Last Admin: 06/09/23 09:07 Dose: 1,000 mcg Dapagliflozin (Dapagliflozin Propanediol 10 Mg Tablet) 10 mg PO DAILY REPLACED BY [facility] Last Admin: 06/09/23 13:35 Dose: 10 mg Famotidine (Famotidine 20 Mg Tab) 20 mg PO DAILY REPLACED BY [facility] Last Admin: 06/09/23 09:07 Dose: 20 mg Formoterol Fumarate (Formoterol Fumarate 20 Mcg/2 Ml Nebu) 20 mcg INHALATION RT-BID REPLACED BY [facility] Last Admin: 06/09/23 20:11 Dose: Not Given Furosemide (Furosemide 10 Mg/Ml 4 Ml Vial) 40 mg IV 0900,1700 REPLACED BY [facility] Last Admin: 06/09/23 17:10 Dose: 40 mg Insulin Detemir (Insulin Detemir (Levemir) 100 Unit/Ml Syr) 20 unit SQ HS REPLACED BY [facility] Last Admin: 06/08/23 20:26 Dose: 20 unit Lactic Acid (Ammonium Lactate 12% Lotion 225 Gm Btl) 1 applic TOPICAL HS REPLACED BY [facility]; Protocol Last Admin: 06/08/23 20:23 Dose: 1 applic Latanoprost (Latanoprost 0.005% Ophth Drops 2.5 Ml Btl) 1 drops [facility] Last Admin: 06/08/23 20:24 Dose: 1 drops Levothyroxine Sodium (Levothyroxine 100 Mcg Tab) 100 mcg PO 0630 REPLACED BY [facility] Last Admin: 06/09/23 06:25 Dose: 100 mcg Melatonin (Melatonin 5 Mg Tablet) 5 mg PO HS REPLACED BY [facility] Last Admin: 06/08/23 20:23 Dose: 5 mg Metoprolol Tartrate (Metoprolol Tartrate 25 Mg Tab) 75 mg PO TID REPLACED BY [facility] Last Admin: 06/09/23 17:10 Dose: 75 mg Montelukast Sodium (Montelukast 10 Mg Tab) 10 mg PO HS REPLACED BY [facility] Last Admin: 06/08/23 20:22 Dose: 10 mg Multivitamins/Minerals (Vit A,C & Z-Ttpmwg-Zwvlrnpn 1 Each Tab) 1 each PO BID REPLACED BY [facility] Last Admin: 06/09/23 09:08 Dose: 1 each Naloxone HCl (Naloxone 0.4 Mg/Ml 1 Ml Vial) 0.2 mg IV Q2M PRN PRN Reason: Opioid Reversal Nystatin (Nystatin 100,000unit/Gm Cream 30 Gm Tube) 1 applic TOPICAL BID REPLACED BY [facility]; Protocol Last Admin: 06/09/23 09:08 Dose: 1 applic Ondansetron HCl (Ondansetron 4 Mg/2 Ml Vial) 4 mg IVP Q8HR PRN PRN Reason: Nausea And Vomiting Prednisone (Prednisone 20 Mg Tab) 40 mg PO DAILY REPLACED BY [facility] Last Admin: 06/09/23 09:07 Dose: 40 mg Senna/Docusate Sodium (Sennosides-Docusate Sodium 1 Each Tab) 1 each PO BID REPLACED BY [facility] Last Admin: 06/09/23 09:07 Dose: 1 each Sodium Biphosphate/Sodium Phosphate (Na Phos,M-B/Na Phos,Di-Ba 133 Ml Enema) 133 ml RECTAL ONCE PRN PRN Reason: Constipation Past medical history to include: Atrial fibrillation, CHF, COPD, diabetes, hypertension, hyperlipidemia, osteoarthritis, seizure disorder, obstructive sleep apnea, peripheral neuropathy, CK D stage III, kidney stones, home oxygen 3 L, right breast cancer 2 with lumpectomy radiation, obstructive sleep apnea and uses CPAP, spinal stenosis 20 low back pain, IBS, seizures 2 as a teen and one in 2009. Macular by bilateral macular degeneration. Right lower extremity skin tear follows at the wound care center. Anxiety depression Social history: At [facility] in an apartment. Occasional walker mainly electric wheelchair. Wound care. Home oxygen. Smoked for 50 years stopped in 2006. No alcohol. Physical examination: VITAL SIGNS: Afebrile, 84, 18, 109/67, GENERAL: Reclining in a chair. Some shortness of breath EYES: Pupils equal. Conjunctiva normal. HEENT: External appearance of nose and ears normal, oral cavity grossly normal. NECK: JVD unable to assess; masses not palpable. HEART: First and second heart sounds are normal; some edema. LUNGS: Respiratory rate increased; , diminished breath sounds ABDOMEN: Soft, nontender, liver spleen not palpable, no masses palpable. PSYCH: Alert and oriented x3; mood and affect normal. MUSCULOSKELETAL:No Clubbing/cyanosis;muscles-grossly intact. OA INVESTIGATIONS, reviewed in the clinical context: June 08: Sodium 139 potassium 4.7 BUN 79 creatinine 2.6 2-D echocardiogram: EF 55-60% severe pulmonary hypertension June 07: Potassium 4.7 BUN 73 creatinine 3.04 White count 11.5 hemoglobin 10.5 platelets 244 sodium 140 potassium 5.1 BUN 65 creatinine 2.73 AST 99 ALT 40 alkaline phosphate 328 Troponin I than 0.012 proBNP 3530 EKG tracing personally reviewed by me-atrial fibrillation. Rate controlled. Flow volume Chest x-ray film personally reviewed by me-interstitial prominence. Assessment and plan: -Acute severe COPD exacerbation in a previous smoker: Some improvement DuoNeb every 4, nebulized Perforomist, Pulmicort. prednisone -Acute hypoxic respiratory failure from COPD exacerbation: Better 3 L of oxygen -Secondary Severe pulmonary hypertension from underlying COPD -Chronic hypoxic respiratory failure from overlying COPD 3 L nasal cannula at home -Acute on Chronic congestive heart failure. Exacerbation from diastolic dysfunction. EF 50-60%: Slow to respond IV Lasix 40 mg every 12. -Obesity BMI 36.6 Weight loss measures -Persistent atrial fibrillation, rate controlled amiodarone to 200 mg a day. Lopressor 75 mg 3 times a day -Hyperlipidemia Lipitor 20 mg daily at bedtime -GERD Pepcid 20 mg a day -Diabetes mellitus type 2, chronically on insulin Continue Lantus. Accu-Cheks with sliding scale. -Hypothyroid Synthroid 100 g a day -Essential hypertension Amlodipine 2.5 mg daily, Lopressor 75 mg 3 times a day Chronic gait dysfunction Uses a walker/motorized wheelchair at her baseline -Diabetic peripheral neuropathy -CK D stage IV likely diabetic nephropathy and hypertensive nephrosclerosis -Full code Bronchodilators. Nebulizers to continue. IV Lasix Prednisone 40 mg. follow labs repeat checks x-ray in the morning. Discussed with patient.
[2023-06-10] MEDS: IPRATROPIUM-ALBUTEROL 3 ML NEB INHALATION SCH ×4 (04:24→14:57)
[2023-06-10] MEDS: LEVOTHYROXINE 100 MCG TAB PO SCH (05:40)
[2023-06-10 06:14] LABS: Glucose,Whole Blood 91 mg/dL (70-110)
--- NOTE | 2023-06-10 08:49 | XR ---
EXAMINATION TYPE: XR chest 2V DATE OF EXAM: 06/10/2023 COMPARISON: 06/06/2023 TECHNIQUE: PA and lateral views submitted. HISTORY: Follow-up CHF. FINDINGS: There is tiny bilateral effusions with interstitial pattern and patchy bilateral areas of consolidati on. Postsurgical change right shoulder diffuse osteopenia throughout the left shoulder. Hypertrophic degenerative changes of spine. Heart is enlarged. IMPRESSION: 1. Findings may represent mild CHF or interstitial pneumonia with bilateral small pleural effusion. F indings are stable from prior exam.
[2023-06-10 08:51] LABS: Carbon Dioxide 31 mmol/L (22-30)
[2023-06-10 08:54] LABS: African American GFR (CKD) 20 (>60 ml/min/1.73 sqM); Anion Gap 9 mmol/L; Blood Urea Nitrogen 91 mg/dL (7-17); Chloride 98 mmol/L (98-107); Glucose 84 mg/dL (74-99); Non-African American GFR(CKD) 17 (>60 ml/min/1.73 sqM); Sodium 138 mmol/L (137-145)
[2023-06-10] MEDS ORDERED: DAPAGLIFLOZIN PROPANEDIOL 10 MG TABLET PO SCH (09:00)
[2023-06-10] MEDS: FORMOTEROL FUMARATE 20 MCG/2 ML NEBU INHALATION SCH (09:34)
[2023-06-10] MEDS: BUDESONIDE 1 MG/2 ML NEBU INHALATION SCH (09:34)
[2023-06-10 09:38] VITALS: RESP 18
[2023-06-10 09:45] LABS: Calcium 8.5 mg/dL (8.4-10.2); Potassium 4.4 mmol/L (3.5-5.1)
[2023-06-10] MEDS: VIT A,C & E-LUTEIN-MINERALS 1 EACH TAB PO SCH (09:49)
[2023-06-10] MEDS: APIXABAN 2.5 MG TABLET PO SCH (09:49)
[2023-06-10] MEDS: predniSONE 20 MG TAB PO SCH (09:49)
[2023-06-10] MEDS: FAMOTIDINE 20 MG TAB PO SCH (09:50)
[2023-06-10] MEDS: DAPAGLIFLOZIN PROPANEDIOL 10 MG TABLET PO SCH (09:50)
[2023-06-10] MEDS: ALPRAZolam 0.25 MG TAB PO SCH (09:50)
[2023-06-10] MEDS: AZELASTINE 137MCG/SPRAY EA NOSTRIL SCH (09:50)
[2023-06-10] MEDS: AMIODARONE 200 MG TAB PO SCH (09:50)
[2023-06-10] MEDS: CYANOCOBALAMIN 500 MCG TAB PO SCH (09:50)
[2023-06-10] MEDS: amLODIPine 2.5 MG TAB PO SCH (09:50)
[2023-06-10] MEDS: METOPROLOL TARTRATE 25 MG TAB PO SCH (09:50)
[2023-06-10] MEDS: FUROSEMIDE 10 MG/ML 4 ML VIAL IV SCH (09:50)
[2023-06-10] MEDS: SENNOSIDES-DOCUSATE SODIUM 1 EACH TAB PO SCH (09:51)
[2023-06-10] MEDS: NYSTATIN 100,000UNIT/GM CREAM 30 GM TUBE TOPICAL SCH (09:51)
[2023-06-10] MEDS: HYDROcodone/APAP 7.5-325MG 1 EACH TAB PO PRN (09:52)
[2023-06-10 11:39] LABS: Glucose,Whole Blood 65 mg/dL (70-110)
[2023-06-10 11:39] LABS: Glucose,Whole Blood 71 mg/dL (70-110)
--- NOTE | 2023-06-10 11:53 | P.PN ---
Subjective HISTORY OF PRESENT ILLNESS: This is a 82-year-old female with a past medical history significant for hypertension, hyperlipidemia, COPD, oxygen dependence, former smoker, and atrial fibrillation. Patient follows in the office with Dr. Umanzor. We have been asked to see the patient in consultation for congestive heart failure. Patient examined at the bedside. Patient presented to the hospital with chief complaint of shortness of breath. Patient is being treated for COPD exacerbation as well as congestive heart failure exacerbation. The patient received IV Lasix yesterday and has been transitioned to oral Lasix today. She denies any chest pain or pressure. She continues to report shortness of breath at the time of examination. She reports some mild lower extremity edema which is worse than her baseline. The patient does not have anticoagulation listed on her home medication list. She states that she is taking Eliquis for her atrial fibrillation. She states that she goes in and out of atrial fibrillation and is not and it all the time. Patient's vital signs this morning are stable. * EKG reveals atrial fibrillation with controlled ventricular rate * Chest xray cardiomegaly with pulmonary vascular congestion and trace left pleural effusion. This suggests CHF exacerbation. * Laboratory data: WBC 11.5. Hemoglobin 10.5. Platelet count 244. Sodium 140. Potassium 4.7. BUN 73. Creatinine 3.04. Troponin negative 1. ProBNP 3530. * Current home cardiac medications include Norvasc 2.5 mg daily, metoprolol tartrate 75 mg 3 times a day, Lasix 40 mg daily, Lipitor 20 mg at night, and amiodarone 200 mg twice a day * Most recent echocardiogram obtained in August 2021 revealed ejection fraction 30-35%, mild tricuspid regurgitation, mild pulmonary hypertension 06/08/2023 Patient examined this morning. Patient is sitting up in the chair. She denies chest pain or pressure. She continues to report shortness of breath. She was started on IV Lasix per pulmonary yesterday. Her lower extremity edema is improving. Echocardiogram performed reveals normal LV systolic function, severe pulmonary hypertension, and mild aortic stenosis. 06/09/2023 Patient examined this morning. She is sitting up in the chair. Patient states that she is wanting to go home. She denies any chest pain or pressure. She reports her shortness of breath is close to her baseline. She reports wheezing this morning. She reports improvement in her lower extremity edema. She remains on IV Lasix 06/10/2023 Patient examined this morning at the bedside. Patient denies any chest pain or pressure. She denies any shortness of breath. She reports resolution of her wheezing. She denies a cough. She remains on IV Lasix. Patient is very anxious to be discharged home today. Kidney function remains stable at 2.53. PHYSICAL EXAM: VITAL SIGNS: Reviewed. GENERAL: Well-developed in no acute distress. HEENT: Head is normocephalic. Pupils are equal, round. Sclerae anicteric. Mucous membranes of the mouth are moist. Neck supple. No JVD or thyromegaly LUNGS: Respirations even and unlabored. Lungs diminished bilaterally with wheezing noted HEART: Irregular rate and rhythm. S1 and S2 heard. ABDOMEN: Soft. Nondistended. Nontender. EXTREMITIES: Normal range of motion. No clubbing or cyanosis. Peripheral pulses intact. 1+ bilateral lower extremity edema NEUROLOGIC: Awake and alert. Oriented x 3. ASSESSMENT: Shortness of breath Acute COPD exacerbation Acute on chronic heart failure with reduced ejection fraction, 3035%, with improved EF, now 55-60% Paroxysmal atrial fibrillation History of COPD with home oxygen Chronic kidney disease Hypertension Hyperlipidemia Former nicotine dependence PLAN: Continue current cardiac medications Discontinue IV Lasix Begin oral Lasix 40 mg twice a day Patient is stable for discharge home today from a cardiac standpoint Nurse practitioner note has been reviewed by physician. Signing provider agrees with the documented findings, assessment, and plan of care. Objective - Vital Signs Vital signs: Vital Signs Temp 97.6 F 06/07/23 20:00 Pulse 68 06/10/23 10:06 Resp 18 06/10/23 10:06 BP 115/69 06/10/23 08:00 Pulse Ox 99 06/10/23 09:34 FiO2 Intake & Output 06/09/23 06/10/23 06/10/23 18:59 06:59 18:59 Intake Total 236 900 160 Output Total 1999 300 Balance 236 -1100 -140 Intake: Oral 236 900 160 Output: Urine 1999 300 Other: Voiding Method Diaper Diaper Diaper External Catheter External Catheter External Catheter # Voids 1 2 # Bowel Movements 1 1 1 - Labs CBC & Chem 7: 06/06/23 10:14 06/10/23 07:36 Labs: Abnormal Lab Results - Last 24 Hours (Table) 0706/09/23 06/10/23 Range/Units 16:18 20:15 07:36 Carbon Dioxide 31 H (22-30) mmol/L BUN 91 H (7-17) mg/dL Creatinine 2.53 H (0.52-1.04) mg/dL POC Glucose (mg/dL) 269 H 308 H (70-110) mg/dL 06/10/23 Range/Units 11:38 Carbon Dioxide (22-30) mmol/L BUN (7-17) mg/dL Creatinine (0.52-1.04) mg/dL POC Glucose (mg/dL) 65 L (70-110) mg/dL Microbiology - Last 24 Hours (Table) 06/06/23 10:16 Blood Culture - Preliminary Blood
[2023-06-10 12:23] VITALS: BP 152/94; PULSE 75
--- NOTE | 2023-06-10 14:31 | P.PN ---
Subjective Progress Note Date: 06/10/23 This is a 82-year-old female patient presented to the hospital because of shortness of breath. The patient has seen us in the office and the patient is oxygen dependent COPD with chronic hypoxic respiratory failure and she is O2 dependent. Her based on FEV1 is in order of 40% of predicted. She has also other comorbidities including CHF and based on echocardiogram that was done back in 2020, the patient ejection fraction of 30-35% and moderate concentric LVH and mild pulmonary hypertension with a PA pressure of 44 mmHg. She is maintained on oxygen at 3 L/m nasal cannula daily basis. She has also issues with diabetes mellitus, hypertension, spinal stenosis, ventral hernia, acid reflux, headaches, depression, spinal stenosis, and history of breast cancer and she was had previous lumpectomies and radiation therapy, seizure disorder, macular degeneration and the patient has impaired vision and obstructive sleep apnea and she has used CPAP therapy in the past. She has also issues with ch ronic kidney disease, stage III chronic kidney failure, a chest fibrillation, and osteoarthritis. During this current admission, the patient's BUN was 70 with a creatinine of 3.04, sodium level is at 140, troponin was negative and a proBNP level was 3530. Coagulation profile was normal. The previous echo was 11.5 with a hemoglobin of 10.5 and a platelet count of 244. The patient's chest x-ray was consistent with cardiomegaly and pulmonary vessel congestion/CHF. There was also trace left-sided pleural effusion. The patient is a former smoker and she cares more than [id number] smoking history. Her EKG is consistent with atrial fibrillation and she has a low voltage EKG with a heart rate of 71. On 06/08/2023, the patient is feeling better and the patient is less short of breath compared to yesterday. The patient remains on oxygen at 3 L per minute nasal cannula with a pulse ox of 100%. The patient is stable. She is on Lasix 40 mg IV every 12 hours. She is also on bronchodilators. She is on a prednisone burst taper starting with 40 mg by mouth on a daily basis. She remains on long-term anticoagulation with Eliquis. She is known to have congestion heart failure with systolic heart failure and ejection fraction of 30-35%. She is also known to have chronic A. fib and various other comorbidities as discussed earlier. Blood work from today shows a BUN of 79 and a creatinine of 2.6 which is improved compared to yesterday and his sodium level is at 139 with a potassium level of 4.7. Alkaline phosphatase slightly elevated at 312. ALT and AST are both within normal limits. Serum albumin is at 3.3. Blood sugar slightly elevated related to steroids. On 06/09/2023, seeing the patient for a follow-up. Still bronchospastic and wheezy and she is still having some issues with shortness of breath. She has diabetes adequately and the patient is currently on Lasix 40 mg IV every 12 hours. She has been transitioned to prednisone burst taper and the patient is also on bronchodilators with DuoNeb updrafts. She is also on Pulmicort Respules and Perforomist. Lower extremity was gradually improving. She is known to have cardiomyopathy with an ejection fraction of 30-35%. She is also known to have chronic atrial fibrillation. She remains on anticoagulation. No blood work from today. Yesterday creatinine was lower at 2.6. On today's evaluation of 06/10/2023, the patient is being seen for a follow-up. Overall, the patient is doing well. Respiratory status improved significantly. The patient is currently on oral Lasix 40 mg twice a day. She remains on bronchodilators patient was also started on prednisone burst taper. She is known to have CHF with systolic heart failure and chronic into fibrillation. Blood work from today shows a BUN of 91 with a creatinine of 2.5 and a sodium level is at 138. As such, there is no interval worsening in her renal function. The patient is currently on 3 L of O2 nasal cannula with a pulse ox of 98%. Breathing is nonlabored. She is afebrile. She remains on antibiotic coverage with Eliquis 2.5 mg twice a day. She is on bronchodilators. She is on metoprolol 75 mg by mouth 3 times a day for rate control regarding her A. fib. No major edema in lower extremities. Objective - Vital Signs Vital signs: Vital Signs Temp 97.6 F 06/07/23 20:00 Pulse 68 06/10/23 10:06 Resp 18 06/10/23 10:06 BP 115/69 06/10/23 08:00 Pulse Ox 99 06/10/23 09:34 FiO2 Intake & Output 06/09/23 06/10/2323 18:59 06:59 18:59 Intake Total 236 900 160 Output Total 1999 Balance 236 -1100 160 Intake: Oral 236 900 160 Output: Urine 1999 Other: Voiding Method Diaper Diaper Diaper External Catheter External Catheter External Catheter # Voids 1 2 # Bowel Movements 1 1 - Exam GENERAL: BMI 36.6, sitting up in a chair awake short of breath. The patient is currently on 3 L of oxygen nasal cannula EYES: Pupils equal. Conjunctiva normal. HEENT: External appearance of nose and ears normal, oral cavity grossly normal. NECK: JVD unable to assess; masses not palpable. HEART: First and second heart sounds are normal; so edema. LUNGS: Respiratory rate increased; but able to speak in full sentences, diminished breath sounds or wheezing. ABDOMEN: Soft, nontender, liver spleen not palpable, no masses palpable. PSYCH: Alert and oriented x3; mood and affect normal. MUSCULOSKELETAL:No Clubbing/cyanosis;muscles-grossly intact. OA, increased edema lower extremities bilaterally NEUROLOGICAL: Cranial nerves grossly intact; no facial asymmetry, power and sensation grossly intact. LYMPHATICS: No lymph nodes palpable in the axilla and neck - Labs CBC & Chem 7: 06/06/23 10:14 06/10/23 07:36 Labs: Abnormal Lab Results - Last 24 Hours (Table) 06/09/23 06/09/23 06/09/23 Range/Units 11:33 16:18 20:15 Carbon Dioxide (22-30) mmol/L BUN (7-17) mg/dL Creatinine (0.52-1.04) mg/dL POC Glucose (mg/dL) 172 H 269 H 308 H (70-110) mg/dL 06/10/23 Range/Units 07:36 Carbon Dioxide 31 H (22-30) mmol/L BUN 91 H (7-17) mg/dL Creatinine 2.53 H (0.52-1.04) mg/dL POC Glucose (mg/dL) (70-110) mg/dL Microbiology - Last 24 Hours (Table) 06/06/23 10:16 Blood Culture - Preliminary Blood Assessment and Plan Plan: Shortness of breath, multifactorial. Patient has a combination of COPD and CHF and some limited fluid overload contributing to her shortness of breath. Clinically improving and the patient is currently on 3 L of oxygen by nasal cannula Severe COPD with an FEV1 of 40% of predicted Chronic systolic heart failure with an EF of around 30-35% and secondary pulmonary hypertension Chronic stage IV kidney disease Chronic atrial fibrillation, rate is controlled and the patient is currently on amiodarone, metoprolol Eliquis 2.5 mg twice a day Obstructive sleep apnea maintenance CPAP therapy on outpatient basis Hypertension Hyperlipidemia Diabetes mellitus type 2 Hypothyroidism Cervical spine stenosis Chronic gait dysfunction, Macular degeneration Obesity DNR/DNI CODE STATUS Plan Overall condition is stable. Continue diuretics, the patient has been switched to oral Lasix 40 mg twice a day Monitor renal function, creatinine remains stable Patient is a negative fluid balance Titrate FiO2, currently on 3 L Continue the prednisone burst taper Management of blood sugar per medicine and the patient is currently on Levemir insulin 20 units in addition to a sliding scale coverage Continue anticoagulation with Eliquis 2.5 mg twice a day Continue metoprolol continue amiodarone we'll continue to follow, overall condition is stable. The patient's respiratory status is back to her baseline, possible discharge today.
[2023-06-10] MEDS ORDERED: FUROSEMIDE 40 MG TAB PO SCH (16:00)
--- NOTE | 2023-06-10 20:52 | P.DS ---
Providers Date of admission: 06/06/23 12:37 Expected date of discharge: 06/10/23 Attending physician: Nemesio Marin Consults: 06/06/23 12:37 Consult Physician Routine Consulting Provider: [facility] Consult Reason/Comments: Acute pulmonary edema Do you want consulting provider notified?: Yes 06/06/23 19:48 Consult Physician Routine Consulting Provider: Jossue Portillo Reason/Comments: COPD Do you want consulting provider notified?: Yes Primary care physician: [facility] Course: Chief Complaint: Short of breath This is a pleasant 82-year-old patient who follows with visiting physicians. [employer] C[employer]er Dr. Camp. Baseline patient is short of breath but more so in the last 10 days. Wheezing. No cough no fever no chills. Appetite is fair. Has chronic lower extremity edema. Normally sleeps using one pillow. No chest pain. Uses a wheelchair to get about. Admitted with acute COPD exacerbation and possible acute CHF exacerbation. June 07: Getting slightly better. Short of breath. Eating well. Has family visiting. Sitting at the edge of the bed. Dr. Evangelista felt the patient may have some fluid overload. Given IV Lasix. June 08: Using CPAP. Shortness of breath. Improvement. Remains on IV Lasix 40 mg every 12. Some negative fluid balance. On 3 L nasal cannula. Eating well June 09: Sitting up, breathing a bit better. Using CPAP. Oral intake good. Some edema. Remains on IV Lasix. June 10: Being well. Breathing better. Changed her to oral Lasix. We will discharge him some restriction. Steroid taper. Discussed with the patient. Cleared by cardiology and pulmonary. Discussion and discharge planning more than 35 minutes Past medical history to include: Atrial fibrillation, CHF, COPD, diabetes, hypertension, hyperlipidemia, osteoarthritis, seizure disorder, obstructive sleep apnea, peripheral neuropathy, CK D stage III, kidney stones, home oxygen 3 L, right breast cancer 2 with lumpectomy radiation, obstructive sleep apnea and uses CPAP, spinal stenosis 20 low back pain, IBS, seizures 2 as a teen and one in 2009. Macular by bilateral macular degeneration. Right lower extremity skin tear follows at the wound care center. Anxiety depression Social history: At [facility] in an apartment. Occasional walker mainly electric wheelchair. Wound care. Home oxygen. Smoked for 50 years stopped in 2006. No alcohol. Physical examination: VITAL SIGNS: 75, 18, 152/94, 98% on 3 L GENERAL: Laying up, breathing better EYES: Pupils equal. Conjunctiva normal. HEENT: External appearance of nose and ears normal, oral cavity grossly normal. NECK: JVD unable to assess; masses not palpable. HEART: First and second heart sounds are normal; some edema. LUNGS: Respiratory rate normal; , diminished breath sounds ABDOMEN: Soft, nontender, liver spleen not palpable, no masses palpable. PSYCH: Alert and oriented x3; mood and affect normal. MUSCULOSKELETAL:No Clubbing/cyanosis;muscles-grossly intact. OA INVESTIGATIONS, reviewed in the clinical context: June 10: Potassium 4.4 BUN 91 creatinine 2.53 June 08: Sodium 139 potassium 4.7 BUN 79 creatinine 2.6 2-D echocardiogram: EF 55-60% severe pulmonary hypertension June 07: Potassium 4.7 BUN 73 creatinine 3.04 White count 11.5 hemoglobin 10.5 platelets 244 sodium 140 potassium 5.1 BUN 65 creatinine 2.73 AST 99 ALT 40 alkaline phosphate 328 Troponin I than 0.012 proBNP 3530 EKG tracing personally reviewed by me-atrial fibrillation. Rate controlled. Flow volume Chest x-ray film personally reviewed by me-interstitial prominence. Assessment and plan: -Acute severe COPD exacerbation in a previous smoker: Better DuoNeb every 4, nebulized Perforomist Pulmicort. She is on prednisone taper -Acute hypoxic respiratory failure from COPD exacerbation: Better 3 L of oxygen -Secondary Severe pulmonary hypertension from underlying COPD -Chronic hypoxic respiratory failure from overlying COPD 3 L nasal cannula at home -Acute on Chronic congestive heart failure. Exacerbation from diastolic dysfunction. EF 50-60%: Better IV Lasix 40 mg every 12. Oral Lasix -Obesity BMI 36.6 Weight loss measures -Persistent atrial fibrillation, rate controlled amiodarone to 200 mg a day. Lopressor 75 mg 3 times a day -Hyperlipidemia Lipitor 20 mg daily at bedtime -GERD Pepcid 20 mg a day -Diabetes mellitus type 2, chronically on insulin Continue Lantus. Accu-Cheks with sliding scale. -Hypothyroid Synthroid 100 g a day -Essential hypertension Amlodipine 2.5 mg daily, Lopressor 75 mg 3 times a day Chronic gait dysfunction Uses a walker/motorized wheelchair at her baseline -Diabetic peripheral neuropathy -CK D stage IV likely diabetic nephropathy and hypertensive nephrosclerosis -No code Disposition: Home Follow-up: Patient was to change her PCP. over to Dr. Stu Ring Plan - Discharge Summary New Discharge Prescriptions: New Apixaban [Eliquis] 2.5 mg PO BID #60 tab Dapagliflozin Propanediol [Farxiga] 10 mg PO DAILY #30 tab predniSONE 10 mg PO DAILY #30 tab Continue Atorvastatin [Lipitor] 20 mg PO HS Montelukast [Singulair] 10 mg PO HS Vit C/E/Zn/Coppr/Lutein/Zeaxan [Preservision Areds 2 Softgel] 1 cap PO BID Latanoprost Ophth [Xalatan 0.005%] 1 drop BOTH EYES HS Roflumilast [Daliresp] 500 mcg PO DAILY Furosemide [Lasix] 40 mg PO DAILY Insulin Lispro [humaLOG Kwikpen] See Protocol SQ AC-TID Cyanocobalamin (Vitamin B-12) [Vitamin B-12] 1,000 mcg PO DAILY Ergocalciferol (Vitamin D2) [Drisdol (50,000 Iu)] 1,250 mcg PO WE Azelastine HCl [Astepro Allergy] 1 spr NASAL BID Benzonatate [Tessalon Perle] 200 mg PO TID PRN PRN Reason: Cough Famotidine [Pepcid] 20 mg PO DAILY HYDROcodone/APAP 7.5-325MG [[place] 7.5-325] 1 tab PO Q6H PRN PRN Reason: Severe Pain (Scale 7 To 10) Insulin Glargine,Hum.rec.anlog [Lantus Solostar Pen] 20 units SQ HS Ipratropium [place] 0.06%Nasal [Atrovent Nasal 0.06%] 2 spr EA NOSTRIL Q8H Loperamide HCl [Imodium A-D] 2 mg PO Q6H PRN PRN Reason: Diarrhea Melatonin 5 mg PO HS Metoprolol Tartrate [Lopressor] 75 mg PO TID Nystatin 100,000Unit/gm Cream [Mycostatin Cream] 1 applic TOPICAL BID Sennosides/Docusate Sodium [Senna-S 8.6-50 mg Tablet] 1 tab PO BID ALPRAZolam [Xanax] 0.25 mg PO BID Ipratropium-Albuterol Nebulize [Duoneb 0.5 mg-3 mg/3 ml Soln] 3 ml INHALATION RT-QID Albuterol Sulfate [Albuterol Sulfate Hfa] 2 puff INHALATION RT-Q6H PRN PRN Reason: Shortness Of Breath amLODIPine [Norvasc] 2.5 mg PO DAILY Ammonium Lactate Lotion [Lac-Hydrin 12% Lotion] 1 applic TOPICAL HS Levothyroxine Sodium [Synthroid] 100 mcg PO AC-BRKFST Changed Amiodarone [Cordarone] 200 mg PO DAILY #0 Discontinued Ciprofloxacin HCl [Cipro] 500 mg PO BID Discharge Medication List Atorvastatin [Lipitor] 20 mg PO HS 07/15/14 [History] Latanoprost Ophth [Xalatan 0.005%] 1 drop BOTH EYES HS 01/28/21 [History] Montelukast [Singulair] 10 mg PO HS 01/28/21 [History] Roflumilast [Daliresp] 500 mcg PO DAILY 01/28/21 [History] Vit C/E/Zn/Coppr/Lutein/Zeaxan [Preservision Areds 2 Softgel] 1 cap PO BID 01/28/21 [History] ALPRAZolam [Xanax] 0.25 mg PO BID 09/03/21 [History] Ipratropium-Albuterol Nebulize [Duoneb 0.5 mg-3 mg/3 ml Soln] 3 ml INHALATION RT-QID 09/03/21 [History] Furosemide [Lasix] 40 mg PO DAILY 10/18/21 [History] Insulin Lispro [humaLOG Kwikpen] See Protocol SQ AC-TID 07/23/22 [History] Azelastine HCl [Astepro Allergy] 1 spr NASAL BID 12/10/22 [History] Cyanocobalamin (Vitamin B-12) [Vitamin B-12] 1,000 mcg PO DAILY 12/10/22 [History] Ergocalciferol (Vitamin D2) [Drisdol (50,000 Iu)] 1,250 mcg PO WE 12/10/22 [History] Albuterol Sulfate [Albuterol Sulfate Hfa] 2 puff INHALATION RT-Q6H PRN 06/06/23 [History] Ammonium Lactate Lotion [Lac-Hydrin 12% Lotion] 1 applic TOPICAL HS 06/06/23 [History] Benzonatate [Tessalon Perle] 200 mg PO TID PRN 06/06/23 [History] Famotidine [Pepcid] 20 mg PO DAILY 06/06/23 [History] HYDROcodone/APAP 7.5-325MG [[place] 7.5-325] 1 tab PO Q6H PRN 06/06/23 [History] Insulin Glargine,Hum.rec.anlog [Lantus Solostar Pen] 20 units SQ HS 06/06/23 [History] Ipratropium [place] 0.06%Nasal [Atrovent Nasal 0.06%] 2 spr EA NOSTRIL Q8H 06/06/23 [History] Levothyroxine Sodium [Synthroid] 100 mcg PO AC-BRKFST 06/06/23 [History] Loperamide HCl [Imodium A-D] 2 mg PO Q6H PRN 06/06/23 [History] Melatonin 5 mg PO HS 06/06/23 [History] Metoprolol Tartrate [Lopressor] 75 mg PO TID 06/06/23 [History] Nystatin 100,000Unit/gm Cream [Mycostatin Cream] 1 applic TOPICAL BID 06/06/23 [History] Sennosides/Docusate Sodium [Senna-S 8.6-50 mg Tablet] 1 tab PO BID 06/06/23 [History] amLODIPine [Norvasc] 2.5 mg PO DAILY 06/06/23 [History] Amiodarone [Cordarone] 200 mg PO DAILY #0 06/10/23 [Rx] Apixaban [Eliquis] 2.5 mg PO BID #60 tab 06/10/23 [Rx] Dapagliflozin Propanediol [Farxiga] 10 mg PO DAILY #30 tab 06/10/23 [Rx] predniSONE 10 mg PO DAILY #30 tab 06/10/23 [Rx] Follow up Appointment(s)/Referral(s): Cedrick Tavarez MD [STAFF PHYSICIAN] - 1 Week (Please make a follow up with cardiology! Was unable to get through to make your appointment.) Stu Ring MD [REFERRING] - 06/17/23 4:00 pm (Please keep your follow-up appointment with Dr. Ring, May) Rodriguez Evangelista MD [STAFF PHYSICIAN] - 1 Week (Unable to make a follow-up appointment. Please call to set an appointment with Dr. Evangelista.) Activity/Diet/Wound Care/Special Instructions: fluid restrict 1800 cc/day Discharge Disposition: HOME SELF-CARE
== END 2023-06-10 15:18 | disposition home or self-care (01) | DRG 291 ==
LOC: EC 10:00 → 3SCARD 12:37
PROVIDERS: ADMIT Hospitalist; ATTEND Hospitalist
DX: I13.0 Hypertensive heart and chronic kidney disease with heart failure and stage 1 through stage 4 chronic kidney disease, or unspecified chronic kidney disease (principal); I50.23 Acute on chronic systolic (congestive) heart failure; J96.21 Acute and chronic respiratory failure with hypoxia; J44.1 Chronic obstructive pulmonary disease with (acute) exacerbation; I48.19 Other persistent atrial fibrillation; E11.42 Type 2 diabetes mellitus with diabetic polyneuropathy; E11.22 Type 2 diabetes mellitus with diabetic chronic kidney disease; E11.21 Type 2 diabetes mellitus with diabetic nephropathy; N18.30 Chronic kidney disease, stage 3 unspecified; E78.5 Hyperlipidemia, unspecified; M19.90 Unspecified osteoarthritis, unspecified site; G40.909 Epilepsy, unspecified, not intractable, without status epilepticus; G47.33 Obstructive sleep apnea (adult) (pediatric); F32.A Depression, unspecified; Z68.36 Body mass index [BMI] 36.0-36.9, adult; E66.9 Obesity, unspecified; E03.9 Hypothyroidism, unspecified; R26.9 Unspecified abnormalities of gait and mobility; K21.9 Gastro-esophageal reflux disease without esophagitis; R29.6 Repeated falls; Z66 Do not resuscitate; F41.9 Anxiety disorder, unspecified; K58.9 Irritable bowel syndrome, unspecified; I27.20 Pulmonary hypertension, unspecified; R26.89 Other abnormalities of gait and mobility; I42.9 Cardiomyopathy, unspecified; T38.0X5A Adverse effect of glucocorticoids and synthetic analogues, initial encounter; Z88.8 Allergy status to other drugs, medicaments and biological substances; Z91.048 Other nonmedicinal substance allergy status; Z79.01 Long term (current) use of anticoagulants; Z79.890 Hormone replacement therapy; Z79.899 Other long term (current) drug therapy; Z85.3 Personal history of malignant neoplasm of breast; Z87.442 Personal history of urinary calculi; Z90.710 Acquired absence of both cervix and uterus; Z90.49 Acquired absence of other specified parts of digestive tract; Z98.42 Cataract extraction status, left eye; Z98.41 Cataract extraction status, right eye; Z96.1 Presence of intraocular lens; Z99.81 Dependence on supplemental oxygen; X58.XXXA Exposure to other specified factors, initial encounter; Z91.49 Other personal history of psychological trauma, not elsewhere classified; Z86.14 Personal history of Methicillin resistant Staphylococcus aureus infection; Z87.01 Personal history of pneumonia (recurrent); Z91.81 History of falling
CPT/HCPCS: 36415; 71046; 80048; 80053; 83605; 83735; 83880; 84484; 85025; 85610; 85730; 87040; 93005; 93306; 94640; 94660; 94760; 96374; 96375; 99285

== ENCOUNTER → 2023-08-10 | Outpatient (CLI) | payer MEDICARE, BC ==
--- NOTE | 2023-08-11 07:54 | US ---
EXAMINATION TYPE: US arterial LE single level DATE OF EXAM: 08/10/2023 2:25 PM CLINICAL INDICATION: Female, 82 years old with history of R60.0 edema; History of: Smoker: Previous Hypertension: Yes Diabetic: Yes Hyperlipidemia: Yes TIA/CVA: No Previous Vascular Surgery: No CA: No Vascular Ulcers: Both Right Brachial Pressure: 136 Left Brachial Pressure: 131 Ankle-Brachial Indices: Right: 1.13 Left: 1.33 Toe Brachial Indices: Right: 0.71 Left: 0.96 Moderately phasic waveforms are within the left dorsalis pedis left digit as well as the right digit. Triphasic waveforms are within the right dorsalis pedis with biphasic waveforms left posterior tibia l. IMPRESSION: 1. Monophasic waveforms with diminished ratio at the right great toe. Moderate narrowing appears to b e present more proximal.
== END | disposition home or self-care (01) ==
LOC: RADUSWWP 13:17
PROVIDERS: ATTEND Family Medicine
DX: R60.0 Localized edema (principal)
CPT/HCPCS: 93922

== ENCOUNTER 2023-08-29 09:42 | Inpatient (IN) | payer MEDICARE, BC ==
--- NOTE | 2023-08-29 10:22 | ED ---
General Adult HPI - General Chief complaint: Shortness of Breath Stated complaint: SOB Time Seen by Provider: 08/29/23 09:51 Source: patient, EMS, RN notes reviewed, old records reviewed Mode of arrival: EMS Limitations: no limitations - History of Present Illness Initial comments: 82-year-old female presenting for evaluation of increased dyspnea. Patient normally on 3 L but has required 4 L. She denies chest pain. Denies fever. Denies weight gain. She has history of congestive heart failure and recurrent pneumonia. - Related Data Home Medications Medication Instructions Recorded Confirmed Atorvastatin [Lipitor] 20 mg PO HS 07/15/14 06/06/23 Latanoprost Ophth [Xalatan 0.005%] 1 drop BOTH EYES HS 01/28/21 06/06/23 Montelukast [Singulair] 10 mg PO HS 01/28/21 06/06/23 Roflumilast [Daliresp] 500 mcg PO DAILY 01/28/21 06/06/23 Vit C/E/Zn/Coppr/Lutein/Zeaxan 1 cap PO BID 01/28/21 06/06/23 [Preservision Areds 2 Softgel] ALPRAZolam [Xanax] 0.25 mg PO BID 09/03/21 06/06/23 Ipratropium-Albuterol Nebulize 3 ml INHALATION RT-QID 09/03/21 06/06/23 [Duoneb 0.5 mg-3 mg/3 ml Soln] Furosemide [Lasix] 40 mg PO DAILY 10/18/21 06/06/23 Insulin Lispro [humaLOG Kwikpen] See Protocol SQ AC-TID 07/23/22 06/06/23 Azelastine HCl [Astepro Allergy] 1 spr NASAL BID 12/10/22 06/06/23 Cyanocobalamin (Vitamin B-12) 1,000 mcg PO DAILY 12/10/22 06/06/23 [Vitamin B-12] Ergocalciferol (Vitamin D2) 1,250 mcg PO WE 12/10/22 06/06/23 [Drisdol (50,000 Iu)] Albuterol Sulfate [Albuterol 2 puff INHALATION RT-Q6H PRN 06/06/23 06/06/23 Sulfate Hfa] Ammonium Lactate Lotion 1 applic TOPICAL HS 06/06/23 06/06/23 [Lac-Hydrin 12% Lotion] Benzonatate [Tessalon Perle] 200 mg PO TID PRN 06/06/23 06/06/23 Famotidine [Pepcid] 20 mg PO DAILY 06/06/23 06/06/23 HYDROcodone/APAP 7.5-325MG [[place] 1 tab PO Q6H PRN 06/06/23 06/06/23 7.5-325] Insulin Glargine,Hum.rec.anlog 20 units SQ HS 06/06/23 06/06/23 [Lantus Solostar Pen] Ipratropium [place] 0.06%Nasal 2 spr EA NOSTRIL Q8H 06/06/23 06/06/23 [Atrovent Nasal 0.06%] Levothyroxine Sodium [Synthroid] 100 mcg PO AC-BRKFST 06/06/23 06/06/23 Loperamide HCl [Imodium A-D] 2 mg PO Q6H PRN 06/06/23 06/06/23 Melatonin 5 mg PO HS 06/06/23 06/06/23 Metoprolol Tartrate [Lopressor] 75 mg PO TID 06/06/23 06/06/23 Nystatin 100,000Unit/gm Cream 1 applic TOPICAL BID 06/06/23 06/06/23 [Mycostatin Cream] Sennosides/Docusate Sodium 1 tab PO BID 06/06/23 06/06/23 [Senna-S 8.6-50 mg Tablet] amLODIPine [Norvasc] 2.5 mg PO DAILY 06/06/23 06/06/23 Previous Rx's Medication Instructions Recorded Amiodarone [Cordarone] 200 mg PO DAILY #0 06/10/23 Apixaban [Eliquis] 2.5 mg PO BID #60 tab 06/10/23 Dapagliflozin Propanediol [Farxiga] 10 mg PO DAILY #30 tab 06/10/23 predniSONE 10 mg PO DAILY #30 tab 06/10/23 Allergies Allergy/AdvReac Type Severity Reaction Status Date / Time diclofenac sodium Allergy Unknown Verified 06/06/23 13:19 [From Voltaren] adhesive tape AdvReac Rash/Hives Verified 06/06/23 13:19 Review of Systems ROS Statement: Those systems with pertinent positive or pertinent negative responses have been documented in the HPI. ROS Other: All systems not noted in ROS Statement are negative. Past Medical History Past Medical History: Atrial Fibrillation, Cancer, Heart Failure, COPD, Diabetes Mellitus, Eye Disorder, Hyperlipidemia, Hypertension, Osteoarthritis (OA), Pneumonia, Renal Disease, Seizure Disorder, Sleep Apnea/CPAP/BIPAP Additional Past Medical History / Comment(s): IDDM type II, neuropathy bilateral feet, past hematuria, CKD stage III, nephrolithiasis, chronic respiratory failure/home oxygen 3L/[place] ATC, bronchitis, R breast cancer x2 with lumpectomies/radiation, RACHEL/cpap used, spinal stenosis/chronic back pain, IBS, seizure x2 as a teen and one in 2010, bilateral macular degeneration/very poor vision, current wound R lower leg/skin tear and is seen at [facility]/home nurse, [place] History of Any Multi-Drug Resistant Organisms: MRSA, VRE Date of last positivie culture/infection: 10/02/21 09/13/21 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 Past Anesthesia/Blood Transfusion Reactions: No Reported Reaction, Motion Sickness Past Psychological History: Anxiety, Depression Smoking Status: Former smoker Past Alcohol Use History: None Reported Past Drug Use History: None Reported - Past Family History Mother Additional Family Medical History / Comment(s): breast ca Father Family Medical History: Cancer Additional Family Medical History / Comment(s): Prostate cancer. General Exam Limitations: no limitations General appearance: alert, in no apparent distress Head exam: Present: atraumatic, normocephalic Eye exam: Present: normal appearance, PERRL ENT exam: Present: normal exam Neck exam: Present: normal inspection. Absent: tenderness, meningismus Respiratory exam: Present: respiratory distress, rales Cardiovascular Exam: Present: regular rate, irregular rhythm GI/Abdominal exam: Present: soft, distended. Absent: tenderness, guarding Extremities exam: Present: pedal edema Neurological exam: Present: alert, oriented X3, CN II-XII intact. Absent: motor sensory deficit Psychiatric exam: Present: normal affect, normal mood Skin exam: Present: warm, dry, intact. Absent: cyanosis, diaphoretic Course Vital Signs 08/29/23 08/29/23 09:43 09:50 Temperature 98.2 F Pulse Rate 89 Respiratory 24 24 Rate Blood Pressure 142/95 O2 Sat by Pulse 96 Oximetry Medical Decision Making - Medical Decision Making Was pt. sent in by a medical professional or institution (, PA, ACID CONDITIONING WORKER, urgent care, hospital, or group home...) When possible be specific @ -No Did you speak to anyone other than the patient for history (EMS, parent, family, police, friend...)? What history was obtained from this source @ -No Did you review nursing and triage notes (agree or disagree)? Why? @ -I reviewed and agree with nursing and triage notes Were old charts reviewed (outside hosp., previous admission, EMS record, old EKG, old radiological studies, urgent care reports/EKG's, group home records)? Report findings @ -No old charts were reviewed Differential Diagnosis (chest pain, altered mental status, abdominal pain women, abdominal pain men, vaginal bleeding, weakness, fever, dyspnea, syncope, headache, dizziness, GI bleed, back pain, seizure, CVA, palpatations, mental health, musculoskeletal)? @ Differential Dyspnea: Coronary syndrome, arrhythmia, tamponade, asthma, COPD, pulmonary embolism, pneumonia, pneumothorax, pulmonary effusion, anaphylaxis, diabetic ketoacidosis, flailed chest, pulmonary contusion, diaphragmatic rupture, anemia, neuromuscular, this is not meant to be an all-inclusive list. EKG interpreted by me (3pts min.). @ -Atrophic fibrillation, left axis, rate 92, OR interval 98, QRS duration 435, no ST segment elevation. X-rays interpreted by me (1pt min.). @Chest x-ray negative for pneumothorax, negative for consolidation pneumonia, does show no edema consistent with CHF CT interpreted by me (1pt min.). @ -None done U/S interpreted by me (1pt. min.). @ -None done What testing was considered but not performed or refused? (CT, X-rays, U/S, labs)? Why? @ -None What meds were considered but not given or refused? Why? @ -None Did you discuss the management of the patient with other professionals (professionals i.e. DrRuthy, PA, ACID CONDITIONING WORKER, lab, RT, psych nurse, social media content specialist, collection agent, teacher, recreation officer, telephonic nurse case manager)? Give summary @ -[Dr. Smith Was smoking cessation discussed for >3mins.? @ -No Was critical care preformed (if so, how long)? @ -No Were there social determinants of health that impacted care today? How? (Homelessness, low income, unemployed, alcoholism, drug addiction, transportation, low edu. Level, literacy, decrease access to med. care, correction, rehab)? @ -No Was there de-escalation of care discussed even if they declined (Discuss DNR or withdrawal of care, Hospice)? DNR status @ -No What co-morbidities impacted this encounter? (DM, HTN, Smoking, COPD, CAD, Cancer, CVA, ARF, Chemo, Hep., AIDS, mental health diagnosis, sleep apnea, morbid obesity)? @CHF, COPD Was patient admitted / discharged? Hospital course, mention meds given and route, prescriptions, significant lab abnormalities, going to OR and other pertinent info. @ -82-year-old female with increased dyspnea. No cough. X-ray is consistent with CHF. She does have an elevated BNP, negative troponin. Her white count is elevated without consolidating pneumonia, and the patient denies any fever. This will be monitored. She will be admitted for IV diuresis, treatment of multifactorial dyspnea. Undiagnosed new problem with uncertain prognosis? @ -No Drug Therapy requiring intensive monitoring for toxicity (Heparin, Nitro, Insulin, Cardizem)? @ -No Were any procedures done? @ -No Diagnosis/symptom? @ -Acute CHF exacerbation with COPD Acute, or Chronic, or Acute on Chronic? @ -Acute Uncomplicated (without systemic symptoms) or Complicated (systemic symptoms)? @ -default Side effects of treatment? @ -No Exacerbation, Progression, or Severe Exacerbation? @ -No Poses a threat to life or bodily function? How? (Chest pain, [place], [place], pneumonia, PE, COPD, DKA, ARF, appy, cholecystitis, CVA, Diverticulitis, Homicidal, Suicidal, threat to staff... and all critical care pts) @ -Yes, CHF, COPD - Lab Data Result diagrams: 08/29/23 10:11 08/29/23 10:11 Lab Results 08/29/23 08/29/23 08/29/23 Range/Units 10:11 10:11 10:11 WBC 14.8 H (3.8-10.6) k/uL RBC 4.03 (3.80-5.40) m/uL Hgb 11.2 L (11.4-16.0) gm/dL Hct 37.6 (34.0-46.0) % MCV 93.3 (80.0-100.0) fL MCH 27.9 (25.0-35.0) pg MCHC 29.9 L (31.0-37.0) g/dL RDW 16.4 H (11.5-15.5) % Plt Count 225 (150-450) k/uL MPV 8.1 Neutrophils % 77 % Lymphocytes % 11 % Monocytes % 6 % Eosinophils % 3 % Basophils % 1 % Neutrophils # 11.4 H (1.3-7.7) k/uL Lymphocytes # 1.6 (1.0-4.8) k/uL Monocytes # 0.8 (0-1.0) k/uL Eosinophils # 0.5 (0-0.7) k/uL Basophils # 0.1 (0-0.2) k/uL Hypochromasia Marked Anisocytosis Slight PT 12.2 H (9.0-12.0) sec INR 1.2 H (<1.2) APTT 31.2 H (22.0-30.0) sec Sodium 141 (137-145) mmol/L Potassium 3.7 (3.5-5.1) mmol/L Chloride 105 (98-107) mmol/L Carbon Dioxide 26 (22-30) mmol/L Anion Gap 10 mmol/L BUN 31 H (7-17) mg/dL Creatinine 1.69 H (0.52-1.04) mg/dL Est GFR (CKD-EPI)AfAm 32 (>60 ml/min/1.73 sqM) Est GFR (CKD-EPI)NonAf 28 (>60 ml/min/1.73 sqM) Glucose 128 H (74-99) mg/dL Calcium 8.1 L (8.4-10.2) mg/dL Total Bilirubin 0.9 (0.2-1.3) mg/dL AST 77 H (14-36) U/L ALT 21 (4-34) U/L Alkaline Phosphatase 325 H (38-126) U/L Troponin I (0.000-0.034) ng/mL NT-Pro-B Natriuret Pep 3780 pg/mL Total Protein 7.2 (6.3-8.2) g/dL Albumin 3.1 L (3.5-5.0) g/dL 08/29/23 Range/Units 10:11 WBC (3.8-10.6) k/uL RBC (3.80-5.40) m/uL Hgb (11.4-16.0) gm/dL Hct (34.0-46.0) % MCV (80.0-100.0) fL MCH (25.0-35.0) pg MCHC (31.0-37.0) g/dL RDW (11.5-15.5) % Plt Count (150-450) k/uL MPV Neutrophils % % Lymphocytes % % Monocytes % % Eosinophils % % Basophils % % Neutrophils # (1.3-7.7) k/uL Lymphocytes # (1.0-4.8) k/uL Monocytes # (0-1.0) k/uL Eosinophils # (0-0.7) k/uL Basophils # (0-0.2) k/uL Hypochromasia Anisocytosis PT (9.0-12.0) sec INR (<1.2) APTT (22.0-30.0) sec Sodium (137-145) mmol/L Potassium (3.5-5.1) mmol/L Chloride (98-107) mmol/L Carbon Dioxide (22-30) mmol/L Anion Gap mmol/L BUN (7-17) mg/dL Creatinine (0.52-1.04) mg/dL Est GFR (CKD-EPI)AfAm (>60 ml/min/1.73 sqM) Est GFR (CKD-EPI)NonAf (>60 ml/min/1.73 sqM) Glucose (74-99) mg/dL Calcium (8.4-10.2) mg/dL Total Bilirubin (0.2-1.3) mg/dL AST (14-36) U/L ALT (4-34) U/L Alkaline Phosphatase (38-126) U/L Troponin I <0.012 (0.000-0.034) ng/mL NT-Pro-B Natriuret Pep pg/mL Total Protein (6.3-8.2) g/dL Albumin (3.5-5.0) g/dL Disposition Clinical Impression: Acute pulmonary edema, Congestive heart failure Disposition: ADMITTED IP TO THIS HOSP Condition: Stable Is patient prescribed a controlled substance at d/c from ED?: No Referrals: Stu Ring MD [Primary Care Provider] - 1-2 days Time of Disposition: 11:44
[2023-08-29 10:38] LABS: ALT 21 U/L (4-34); AST 77 U/L (14-36); African American GFR (CKD) 32 (>60 ml/min/1.73 sqM); Albumin 3.1 g/dL (3.5-5.0); Alkaline Phosphatase 325 U/L (38-126); Anion Gap 10 mmol/L; Blood Urea Nitrogen 31 mg/dL (7-17); Calcium 8.1 mg/dL (8.4-10.2); Carbon Dioxide 26 mmol/L (22-30); Chloride 105 mmol/L (98-107); Glucose 128 mg/dL (74-99); Non-African American GFR(CKD) 28 (>60 ml/min/1.73 sqM); Potassium 3.7 mmol/L (3.5-5.1); Sodium 141 mmol/L (137-145); Total Bilirubin 0.9 mg/dL (0.2-1.3); Total Protein 7.2 g/dL (6.3-8.2)
[2023-08-29 10:42] LABS: Anisocytosis Slight; Basophils # (A) 0.1 k/uL (0-0.2); Basophils % (A) 1 %; Eosinophils # (A) 0.5 k/uL (0-0.7); Eosinophils % (A) 3 %; HCT 37.6 % (34.0-46.0); HGB 11.2 gm/dL (11.4-16.0); Hypochromasia Marked; Lymphocytes # (A) 1.6 k/uL (1.0-4.8); Lymphocytes % (A) 11 %; MCH 27.9 pg (25.0-35.0); MCHC 29.9 g/dL (31.0-37.0); MCV 93.3 fL (80.0-100.0); Mean Platelet Volume 8.1; Monocytes # (A) 0.8 k/uL (0-1.0); Monocytes % (A) 6 %; Neutrophils # (A) 11.4 k/uL (1.3-7.7); Neutrophils % (A) 77 %; Platelet Count 225 k/uL (150-450); RBC 4.03 m/uL (3.80-5.40); RDW 16.4 % (11.5-15.5); WBC 14.8 k/uL (3.8-10.6)
[2023-08-29 10:46] LABS: NT-Pro-B-Type Natriuretic Pept 3780 pg/mL
[2023-08-29 10:50] LABS: INR 1.2 (<1.2); Partial Thromboplastin Time 31.2 sec (22.0-30.0); Prothrombin Time 12.2 sec (9.0-12.0)
--- NOTE | 2023-08-29 11:06 | XR ---
EXAMINATION TYPE: XR chest 2V DATE OF EXAM: 08/29/2023 COMPARISON: 06/10/2023 HISTORY: Difficulty breathing TECHNIQUE: Frontal and lateral views of the chest are obtained. FINDINGS: There are diffuse patchy small airspace and interstitial opacities with cardiomegaly. The findings ar e most consistent with CHF and clinical correlation follow-up to resolution is recommended As the probable small right pleural effusion and no pneumothorax. The osseous structures are intact IMPRESSION: Findings most consistent with moderate CHF. Clinical correlation short-term follow-up to resolution is recommended.
[2023-08-29] MEDS ORDERED: FUROSEMIDE 10 MG/ML 4 ML VIAL IV STA (11:29)
[2023-08-29] MEDS ORDERED: NALOXONE 0.4 MG/ML 1 ML VIAL IV PRN (11:41)
[2023-08-29] MEDS ORDERED: ACETAMINOPHEN TAB 325 MG TAB PO PRN (11:41)
[2023-08-29] MEDS: IPRATROPIUM-ALBUTEROL 3 ML NEB INHALATION SCH ×4 (12:27→19:33)
[2023-08-29] MEDS ORDERED: ALBUTEROL HFA INHALER INHALATION PRN (15:01)
[2023-08-29] MEDS ORDERED: hydrALAZINE HCL 25 MG TAB PO PRN (15:01)
--- NOTE | 2023-08-29 15:07 | P.HPIM ---
History of Present Illness H&P Date: 08/29/23 Patient is a 82-year-old female with history of COPD on 3 L, former smoker, severe pulmonary hypertension, diastolic heart failure, permanent atrial fibrillation, dyslipidemia, GERD, type 2 diabetes on insulin, hypothyroidism, hypertension, diabetic neuropathy, CKD3 presenting with acute on chronic dyspnea. She is presenting from assisted living facility, normally ambulates with a walker however had multiple falls recently and currently using wheelchair only. She claims that for the last 2 days she has been feeling congested, noticing slightly worsening lower extremity edema and dyspnea at rest and with exertion. She denies any productive cough or any cough at all. She has been having occasional wheezing but has not increased her use of bronchodilators. She denies any fevers, chills, chest pain, abdominal pain, nausea, vomiting, urinary or bowel complaints. She denies any recent travel or sick contacts. In the ED, temperature is 98.2, blood pressure 142/95, pulse 89, respiratory rate 24, saturating at 96% on 4 L. Hemoglobin 11.2, WBC 14.8, potassium 3.7, creatinine 1.69 improved from baseline, troponin negative, proBNP 3000. EKG shows atrial fibrillation. Chest x-ray shows bilateral interstitial prominence. Patient being admitted for CHF exacerbation. Pertinent positives and negatives as discussed in HPI, a complete review of systems was performed and all other systems are negative. Patient seen and examined at bedside. Vital signs reviewed General: nontoxic, no distress, appears at stated age, morbidly obese Derm: warm, dry, lower extremity venous stasis dermatitis Head: atraumatic, normocephalic, symmetric Eyes: EOMI, no lid lag, anicteric sclera, pupils equal round reactive to light ENT: Nose and ears atraumatic Neck: No thyromegaly, supple Mouth: no lip lesion, mucus membranes moist Cardiovascular: S1S2 reg, no murmur, 2+ pitting edema Lungs: Bilateral rales, no wheeze, no accessory muscle use, supplemental oxygen Abdominal: soft, nontender to palpation, no guarding, no appreciable organomegaly Ext: no gross muscle atrophy, muscle strength muscle strength 5 out of 5 in all 4 extremities, no contractures Neuro: CN II-XII grossly intact Psych: Alert, oriented, appropriate affect Assessment/Plan: Active: Acute on chronic diastolic CHF exacerbation Acute on chronic hypoxic respiratory failure Insulin-dependent type 2 diabetes -IV Lasix 40 mg twice a day, monitor electrolytes, daily BMP and magnesium level -Strict I's and O's -Telemetry -Echocardiogram recently completed, no need to repeat -Continue to wean down oxygen -Continue 20 units of Lantus, and started on sliding scale insulin Chronic: COPD, not in exacerbation Atrial fibrillation GERD Hypertension CK D 3 Hypothyroidism The patient is admitted with an anticipated greater than 2 midnight stay as inpatient status for evaluation of CHF exacerbation. Surrogate decision-maker: Niece CODE STATUS: No Code DVT prophylaxis: Eliquis Anticipated discharge date: 1-[address]: assisted living A total of minutes was spent on the care of this complex patient more than 50% of the time was spent in counseling and care coordination. Past Medical History Past Medical History: Atrial Fibrillation, Cancer, Heart Failure, COPD, Diabetes Mellitus, Eye Disorder, Hyperlipidemia, Hypertension, Osteoarthritis (OA), Pneumonia, Renal Disease, Seizure Disorder, Sleep Apnea/CPAP/BIPAP Additional Past Medical History / Comment(s): IDDM type II, neuropathy bilateral feet, past hematuria, CKD stage III, nephrolithiasis, chronic respiratory failure/home oxygen 3L/[place] ATC, bronchitis, R breast cancer x2 with lumpectomies/radiation, RACHEL/cpap used, spinal stenosis/chronic back pain, IBS, seizure x2 as a teen and one in 2009, bilateral macular degeneration/very poor vision, current wound R lower leg/skin tear and is seen at [facility]/home nurse, [place] History of Any Multi-Drug Resistant Organisms: MRSA, VRE Date of last positivie culture/infection: 10/02/21 09/13/21 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 Past Anesthesia/Blood Transfusion Reactions: No Reported Reaction, Motion Sickness Past Psychological History: Anxiety, Depression Additional Psychological History / Comment(s): Pt resides at [facility] in an apartment. She has ambulates with assistance/walker but not much, mostly in electric wheelchair. She transfers herself. Staff give sponge baths and showers twice a week. The manage her medications, check her blood sugar, make light breakfast and excourt her to lunch and dinner. She has a wound care nurse. She has oxygen, nebulizer, glucometer. 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 Smoking Status: Former smoker Past Alcohol Use History: None Reported Additional Past Alcohol Use History / Comment(s): Pt started smoking in 1957 and quit in 2006. Past Drug Use History: None Reported - Past Family History Mother Additional Family Medical History / Comment(s): breast ca Father Family Medical History: Cancer Additional Family Medical History / Comment(s): Prostate cancer. Medications and Allergies Home Medications Medication Instructions Recorded Confirmed Type Atorvastatin [Lipitor] 20 mg PO HS 07/15/14 08/29/23 History Latanoprost Ophth [Xalatan 0.005%] 1 drop BOTH EYES HS 01/28/21 08/29/23 History Montelukast [Singulair] 10 mg PO HS 01/28/21 08/29/23 History Roflumilast [Daliresp] 500 mcg PO DAILY 01/28/21 08/29/23 History Vit C/E/Zn/Coppr/Lutein/Zeaxan 1 cap PO BID 01/28/21 08/29/23 History [Preservision Areds 2 Softgel] Ipratropium-Albuterol Nebulize 3 ml INHALATION RT-QID 09/03/21 08/29/23 History [Duoneb 0.5 mg-3 mg/3 ml Soln] Furosemide [Lasix] 40 mg PO DAILY 10/18/21 08/29/23 History Insulin Lispro [humaLOG Kwikpen] See Protocol SQ AC-TID 07/23/22 08/29/23 History Cyanocobalamin (Vitamin B-12) 1,000 mcg PO DAILY 12/10/22 08/29/23 History [Vitamin B-12] Ergocalciferol (Vitamin D2) 1,250 mcg PO WE 12/10/22 08/29/23 History [Drisdol (50,000 Iu)] Albuterol Sulfate [Albuterol 2 puff INHALATION RT-Q6H PRN 06/06/23 08/29/23 History Sulfate Hfa] Ammonium Lactate Lotion 1 applic TOPICAL HS 06/06/23 08/29/23 History [Lac-Hydrin 12% Lotion] Benzonatate [Tessalon Perle] 200 mg PO TID PRN 06/06/23 08/29/23 History Famotidine [Pepcid] 20 mg PO DAILY 06/06/23 08/29/23 History Insulin Glargine,Hum.rec.anlog 20 units SQ HS 06/06/23 08/29/23 History [Lantus Solostar Pen] Levothyroxine Sodium [Synthroid] 100 mcg PO AC-BRKFST 06/06/23 08/29/23 History Loperamide HCl [Imodium A-D] 2 mg PO Q6H PRN 06/06/23 08/29/23 History Melatonin 5 mg PO HS 06/06/23 08/29/23 History Metoprolol Tartrate [Lopressor] 75 mg PO TID 06/06/23 08/29/23 History Nystatin 100,000Unit/gm Cream 1 applic TOPICAL BID 06/06/23 08/29/23 History [Mycostatin Cream] Sennosides/Docusate Sodium 1 tab PO BID 06/06/23 08/29/23 History [Senna-S 8.6-50 mg Tablet] amLODIPine [Norvasc] 2.5 mg PO DAILY 06/06/23 08/29/23 History Apixaban [Eliquis] 2.5 mg PO BID #60 tab 06/10/23 08/29/23 Rx Dapagliflozin Propanediol [Farxiga] 10 mg PO DAILY #30 tab 06/10/23 08/29/23 Rx Acetaminophen Tab [Tylenol] 650 mg PO Q4H PRN 08/29/23 08/29/23 History Fluticasone Nasal [place] [Flonase 1 spr EA NOSTRIL DAILY 08/29/23 08/29/23 History Nasal [place]] Olopatadine HCl [Patanol 0.1%] 1 drop BOTH EYES BID 08/29/23 08/29/23 History Sertraline HCl [Zoloft] 50 mg PO DAILY 08/29/23 08/29/23 History Sertraline [Zoloft] 25 mg PO DAILY 08/29/23 08/29/23 History hydrALAZINE HCL [Apresoline] 25 mg PO TID PRN 08/29/23 08/29/23 History hydrOXYzine HCL [Atarax] 50 mg PO DAILY PRN 08/29/23 08/29/23 History Allergies Allergy/AdvReac Type Severity Reaction Status Date / Time diclofenac sodium Allergy Unknown Verified 06/06/23 13:19 [From Voltaren] adhesive tape AdvReac Rash/Hives Verified 06/06/23 13:19 Physical Exam Vitals: Vital Signs Temp Pulse Pulse Resp BP BP Pulse Ox 08/29/23 13:03 78 20 144/78 96 08/29/23 12:58 97.5 F L 70 20 144/76 92 L 08/29/23 12:37 86 08/29/23 12:29 84 08/29/23 09:50 24 08/29/23 09:43 98.2 F 89 24 142/95 96 Intake and Output 08/29/23 08/29/23 08/29/23 06:59 14:59 22:59 Other: # Voids 1 Weight 99.79 kg Results CBC & Chem 7: 08/29/23 10:11 08/29/23 10:11 Labs: Abnormal Lab Results - Last 24 Hours (Table) 08/29/23 08/29/23 08/29/23 Range/Units 10:11 10:11 10:11 WBC 14.8 H (3.8-10.6) k/uL Hgb 11.2 L (11.4-16.0) gm/dL MCHC 29.9 L (31.0-37.0) g/dL RDW 16.4 H (11.5-15.5) % Neutrophils # 11.4 H (1.3-7.7) k/uL PT 12.2 H (9.0-12.0) sec INR 1.2 H (<1.2) APTT 31.2 H (22.0-30.0) sec BUN 31 H (7-17) mg/dL Creatinine 1.69 H (0.52-1.04) mg/dL Glucose 128 H (74-99) mg/dL Calcium 8.1 L (8.4-10.2) mg/dL AST 77 H (14-36) U/L Alkaline Phosphatase 325 H (38-126) U/L Albumin 3.1 L (3.5-5.0) g/dL Thrombosis Risk Factor Assmnt - Choose All That Apply Any of the Below Risk Factors Present?: Yes Each Factor Represents 1 point: Abnormal pulmonary function (COPD), Obesity (BMI >25) Other Risk Factors: Yes Each Risk Factor Represents 3 Points: Age 75 years or older Thrombosis Risk Factor Assessment Total Risk Factor Score: 5 Thrombosis Risk Factor Assessment Level: High Risk
[2023-08-29] MEDS ORDERED: DEXTROSE 50% SYRINGE 50 ML IVP PRN ×2 (15:17)
[2023-08-29 17:21] LABS: Glucose,Whole Blood 180 mg/dL (70-110)
[2023-08-29] MEDS: METOPROLOL TARTRATE 25 MG TAB PO SCH ×2 (18:30→20:47)
[2023-08-29] MEDS: INSULIN ASPART (NovoLOG) 100 UNIT/ML VIAL SQ SCH ×2 (18:30→20:46)
[2023-08-29 20:36] LABS: Glucose,Whole Blood 151 mg/dL (70-110)
[2023-08-29] MEDS: FUROSEMIDE 10 MG/ML 4 ML VIAL IV SCH (20:46)
[2023-08-29] MEDS: APIXABAN 2.5 MG TABLET PO SCH (20:46)
[2023-08-29] MEDS: KETOTIFEN 0.025% OPHTH DROPS 5 ML BTL BOTH EYES SCH (20:47)
[2023-08-29] MEDS: SENNOSIDES-DOCUSATE SODIUM 1 EACH TAB PO SCH (20:47)
[2023-08-29 20:57] VITALS: RESP 18
[2023-08-29] MEDS ORDERED: MONTELUKAST 10 MG TAB PO SCH (21:00)
[2023-08-29] MEDS ORDERED: LATANOPROST 0.005% OPHTH DROPS 2.5 ML BTL BOTH EYES SCH (21:00)
[2023-08-29] MEDS ORDERED: MELATONIN 5 MG TABLET PO SCH (21:00)
[2023-08-29] MEDS ORDERED: INSULIN DETEMIR (LEVEMIR) 100 UNIT/ML SYR SQ SCH (21:00)
[2023-08-29] MEDS ORDERED: ATORVASTATIN 20 MG TAB PO SCH (21:00)
[2023-08-29] MEDS ORDERED: AMMONIUM LACTATE 12% LOTION 225 GM BTL TOPICAL SCH (21:00)
[2023-08-30 02:06] VITALS: TEMP 97.5
[2023-08-30 05:57] LABS: Glucose,Whole Blood 75 mg/dL (70-110)
[2023-08-30] MEDS: INSULIN ASPART (NovoLOG) 100 UNIT/ML VIAL SQ SCH ×2 (06:16→12:43)
[2023-08-30] MEDS ORDERED: LEVOTHYROXINE 100 MCG TAB PO SCH (07:30)
[2023-08-30] MEDS: IPRATROPIUM-ALBUTEROL 3 ML NEB INHALATION SCH ×2 (07:48→11:07)
[2023-08-30 08:55] LABS: Basophils # (A) 0.13 X 10*3/uL (0.00-0.10); Eosinophils # (A) 0.54 X 10*3/uL (0.04-0.35); HCT 36.7 % (37.2-46.3); HGB 11.1 d/dL (12.0-15.0); Lymphocytes # (A) 1.89 X 10*3/uL (0.90-5.00); Lymphocytes % (A) 13.8 %; MCH 27.6 pg (27.0-32.0); MCHC 30.2 d/dL (32.0-37.0); MCV 91.3 FL (80.0-97.0); Mean Platelet Volume 10.2 FL (9.5-12.2); Monocytes # (A) 1.29 X 10*3/uL (0.20-1.00); Monocytes % (A) 9.4 %; NRBC Per 100 WBC 0 X 10*3/uL (0.00-0.01); Neutrophils # (A) 9.77 X 10*3/uL (1.80-7.70); Neutrophils % (A) 71.4 %; Platelet Count 237 X 10*3/uL (140-440); RBC 4.02 X 10*6/uL (4.10-5.20); RDW 17.5 % (11.5-14.5); WBC 13.67 X 10*3/uL (4.50-10.00)
[2023-08-30] MEDS ORDERED: SERTRALINE 50 MG TAB PO SCH (09:00)
[2023-08-30] MEDS ORDERED: SERTRALINE 25 MG TAB PO SCH (09:00)
[2023-08-30] MEDS ORDERED: amLODIPine 2.5 MG TAB PO SCH (09:00)
[2023-08-30] MEDS ORDERED: FAMOTIDINE 20 MG TAB PO SCH (09:00)
[2023-08-30] MEDS ORDERED: CYANOCOBALAMIN 500 MCG TAB PO SCH (09:00)
[2023-08-30] MEDS ORDERED: FLUTICASONE 50MCG/SPRAY NASAL 16GM EA NOSTRIL SCH (09:00)
[2023-08-30] MEDS ORDERED: NON FORMULARY DRUG (Roflumilast [Daliresp] 500 MCG Tablet) PO SCH (09:00)
[2023-08-30] MEDS ORDERED: DAPAGLIFLOZIN PROPANEDIOL 10 MG TABLET PO SCH (09:00)
[2023-08-30 09:02] VITALS: BP 154/90
[2023-08-30] MEDS: METOPROLOL TARTRATE 25 MG TAB PO SCH (09:21)
[2023-08-30] MEDS: SENNOSIDES-DOCUSATE SODIUM 1 EACH TAB PO SCH (09:21)
[2023-08-30] MEDS: APIXABAN 2.5 MG TABLET PO SCH (09:21)
[2023-08-30] MEDS: KETOTIFEN 0.025% OPHTH DROPS 5 ML BTL BOTH EYES SCH (09:22)
[2023-08-30] MEDS: FUROSEMIDE 10 MG/ML 4 ML VIAL IV SCH (09:51)
[2023-08-30 10:20] LABS: Blood Urea Nitrogen 32.4 mg/dL (9.0-27.0); Calcium 8.6 mg/dL (8.7-10.3); Carbon Dioxide 27.3 mmol/L (21.6-31.8); Chloride 101 mmol/L (96-109); Glucose 68 mg/dL (70-110); Magnesium 1.8 mg/dL (1.5-2.4); Potassium 3.6 mmol/L (3.5-5.5); Sodium 142 mmol/L (135-145)
[2023-08-30 11:22] VITALS: PULSE 80
[2023-08-30 11:25] LABS: Glucose,Whole Blood 215 mg/dL (70-110)
--- NOTE | 2023-08-30 13:08 | P.DS ---
Providers Date of admission: 08/29/23 11:41 Expected date of discharge: 08/30/23 Attending physician: Doug Smith MD Primary care physician: Stu Ring MD Hospital Course: Discharge Diagnosis: Acute on chronic diastolic CHF exacerbation Acute on chronic hypoxic respiratory failure Insulin-dependent type 2 diabetes Mild leukocytosis, likely reactive COPD, not in exacerbation Atrial fibrillation GERD Hypertension CK D 3 Hypothyroidism Hospital Course: Patient is a 82-year-old female with history of COPD on 3 L, former smoker, severe pulmonary hypertension, diastolic heart failure, permanent atrial fibrillation, dyslipidemia, GERD, type 2 diabetes on insulin, hypothyroidism, hypertension, diabetic neuropathy, CKD3 presenting with acute on chronic dyspnea. In the ED, temperature is 98.2, blood pressure 142/95, pulse 89, respiratory rate 24, saturating at 96% on 4 L. Hemoglobin 11.2, WBC 14.8, potassium 3.7, creatinine 1.69 improved from baseline, troponin negative, proBNP 3000. EKG shows atrial fibrillation. Chest x-ray shows bilateral interstitial prominence. Patient being admitted for CHF exacerbation. Was started on IV Lasix. At the time of discharge. She is back to her baseline respiratory function requiring 3 L. She normally uses wheelchair but we were able to catheter standing and she was able to ambulate slightly with assistance. She needs further physical therapy at home for deconditioning. Patient will need to follow-up with PCP in cardiology. She does have lower extremity wounds which she follows wound care for, needs to continue. Patient seen and examined at bedside. Vital signs reviewed and stable. General: nontoxic, no distress, appears at stated age, morbidly obese Derm: warm, dry, lower extremity venous stasis dermatitis Head: atraumatic, normocephalic, symmetric Eyes: EOMI, no lid lag, anicteric sclera, pupils equal round reactive to light ENT: Nose and ears atraumatic Neck: No thyromegaly, supple Mouth: no lip lesion, mucus membranes moist Cardiovascular: S1S2 reg, no murmur, 2+ pitting edema Lungs: Bilateral rales, no wheeze, no accessory muscle use, supplemental oxygen Abdominal: soft, nontender to palpation, no guarding, no appreciable organomegaly Ext: no gross muscle atrophy, muscle strength muscle strength 5 out of 5 in all 4 extremities, no contractures Neuro: CN II-XII grossly intact Psych: Alert, oriented, appropriate affect A total of 36 minutes of time were spent preparing this complex discharge summary. Patient was discharged on 08/30/23 at 13:05. Patient Condition at Discharge: Stable Plan - Discharge Summary Discharge Rx Participant: Yes New Discharge Prescriptions: Continue Atorvastatin [Lipitor] 20 mg PO HS Montelukast [Singulair] 10 mg PO HS Vit C/E/Zn/Coppr/Lutein/Zeaxan [Preservision Areds 2 Softgel] 1 cap PO BID Latanoprost Ophth [Xalatan 0.005%] 1 drop BOTH EYES HS Roflumilast [Daliresp] 500 mcg PO DAILY Insulin Lispro [humaLOG Kwikpen] See Protocol SQ AC-TID Cyanocobalamin (Vitamin B-12) [Vitamin B-12] 1,000 mcg PO DAILY Ergocalciferol (Vitamin D2) [Drisdol (50,000 Iu)] 1,250 mcg PO WE Benzonatate [Tessalon Perle] 200 mg PO TID PRN PRN Reason: Cough Famotidine [Pepcid] 20 mg PO DAILY Insulin Glargine,Hum.rec.anlog [Lantus Solostar Pen] 20 units SQ HS Loperamide HCl [Imodium A-D] 2 mg PO Q6H PRN PRN Reason: Diarrhea Melatonin 5 mg PO HS Metoprolol Tartrate [Lopressor] 75 mg PO TID Nystatin 100,000Unit/gm Cream [Mycostatin Cream] 1 applic TOPICAL BID Sennosides/Docusate Sodium [Senna-S 8.6-50 mg Tablet] 1 tab PO BID Apixaban [Eliquis] 2.5 mg PO BID #60 tab Acetaminophen Tab [Tylenol] 650 mg PO Q4H PRN PRN Reason: Pain hydrALAZINE HCL [Apresoline] 25 mg PO TID PRN PRN Reason: SBP>140 hydrOXYzine HCL [Atarax] 50 mg PO DAILY PRN PRN Reason: Severe Anxiety Olopatadine HCl [Patanol 0.1%] 1 drop BOTH EYES BID Sertraline [Zoloft] 25 mg PO DAILY Sertraline HCl [Zoloft] 50 mg PO DAILY Furosemide [Lasix] 40 mg PO DAILY #60 tab Ipratropium-Albuterol Nebulize [Duoneb 0.5 mg-3 mg/3 ml Soln] 3 ml INHALATION RT-QID Albuterol Sulfate [Albuterol Sulfate Hfa] 2 puff INHALATION RT-Q6H PRN PRN Reason: Shortness Of Breath amLODIPine [Norvasc] 2.5 mg PO DAILY Ammonium Lactate Lotion [Lac-Hydrin 12% Lotion] 1 applic TOPICAL HS Levothyroxine Sodium [Synthroid] 100 mcg PO AC-BRKFST Dapagliflozin Propanediol [Farxiga] 10 mg PO DAILY #30 tab Fluticasone Nasal [place] [Flonase Nasal [place]] 1 spr EA NOSTRIL DAILY Discharge Medication List Atorvastatin [Lipitor] 20 mg PO HS 07/15/14 [History] Latanoprost Ophth [Xalatan 0.005%] 1 drop BOTH EYES HS 01/28/21 [History] Montelukast [Singulair] 10 mg PO HS 01/28/21 [History] Roflumilast [Daliresp] 500 mcg PO DAILY 01/28/21 [History] Vit C/E/Zn/Coppr/Lutein/Zeaxan [Preservision Areds 2 Softgel] 1 cap PO BID 01/28/21 [History] Ipratropium-Albuterol Nebulize [Duoneb 0.5 mg-3 mg/3 ml Soln] 3 ml INHALATION RT-QID 09/03/21 [History] Insulin Lispro [humaLOG Kwikpen] See Protocol SQ AC-TID 07/23/22 [History] Cyanocobalamin (Vitamin B-12) [Vitamin B-12] 1,000 mcg PO DAILY 12/10/22 [History] Ergocalciferol (Vitamin D2) [Drisdol (50,000 Iu)] 1,250 mcg PO WE 12/10/22 [History] Albuterol Sulfate [Albuterol Sulfate Hfa] 2 puff INHALATION RT-Q6H PRN 06/06/23 [History] Ammonium Lactate Lotion [Lac-Hydrin 12% Lotion] 1 applic TOPICAL HS 06/06/23 [History] Benzonatate [Tessalon Perle] 200 mg PO TID PRN 06/06/23 [History] Famotidine [Pepcid] 20 mg PO DAILY 06/06/23 [History] Insulin Glargine,Hum.rec.anlog [Lantus Solostar Pen] 20 units SQ HS 06/06/23 [History] Levothyroxine Sodium [Synthroid] 100 mcg PO AC-BRKFST 06/06/23 [History] Loperamide HCl [Imodium A-D] 2 mg PO Q6H PRN 06/06/23 [History] Melatonin 5 mg PO HS 06/06/23 [History] Metoprolol Tartrate [Lopressor] 75 mg PO TID 06/06/23 [History] Nystatin 100,000Unit/gm Cream [Mycostatin Cream] 1 applic TOPICAL BID 06/06/23 [History] Sennosides/Docusate Sodium [Senna-S 8.6-50 mg Tablet] 1 tab PO BID 06/06/23 [History] amLODIPine [Norvasc] 2.5 mg PO DAILY 06/06/23 [History] Apixaban [Eliquis] 2.5 mg PO BID #60 tab 06/10/23 [Rx] Dapagliflozin Propanediol [Farxiga] 10 mg PO DAILY #30 tab 06/10/23 [Rx] Acetaminophen Tab [Tylenol] 650 mg PO Q4H PRN 08/29/23 [History] Fluticasone Nasal [place] [Flonase Nasal [place]] 1 spr EA NOSTRIL DAILY 08/29/23 [History] Olopatadine HCl [Patanol 0.1%] 1 drop BOTH EYES BID 08/29/23 [History] Sertraline HCl [Zoloft] 50 mg PO DAILY 08/29/23 [History] Sertraline [Zoloft] 25 mg PO DAILY 08/29/23 [History] hydrALAZINE HCL [Apresoline] 25 mg PO TID PRN 08/29/23 [History] hydrOXYzine HCL [Atarax] 50 mg PO DAILY PRN 08/29/23 [History] Furosemide [Lasix] 40 mg PO DAILY #60 tab 08/30/23 [Rx] Follow up Appointment(s)/Referral(s): Stu Ring MD [Primary Care Provider] - 1-2 days Patient Instructions/Handouts: Heart Failure (DC) Activity/Diet/Wound Care/Special Instructions: Please see your PCP and wound care center. Discharge Disposition: HOME SELF-CARE
[2023-09-01] MEDS ORDERED: ERGOCALCIFEROL 1,250 MCG (50,000 IU) CAPSULE PO SCH (15:01)
== END 2023-08-30 15:00 | disposition home or self-care (01) | DRG 291 ==
LOC: EC 09:42 → 4SSUR 11:41
PROVIDERS: ADMIT Student in an Organized Health Care Education/Training Program; ATTEND Student in an Organized Health Care Education/Training Program
DX: I13.0 Hypertensive heart and chronic kidney disease with heart failure and stage 1 through stage 4 chronic kidney disease, or unspecified chronic kidney disease (principal); I50.33 Acute on chronic diastolic (congestive) heart failure; J96.21 Acute and chronic respiratory failure with hypoxia; I48.21 Permanent atrial fibrillation; E03.9 Hypothyroidism, unspecified; Z79.890 Hormone replacement therapy; I12.9 Hypertensive chronic kidney disease with stage 1 through stage 4 chronic kidney disease, or unspecified chronic kidney disease; J44.9 Chronic obstructive pulmonary disease, unspecified; E11.22 Type 2 diabetes mellitus with diabetic chronic kidney disease; E11.65 Type 2 diabetes mellitus with hyperglycemia; N18.30 Chronic kidney disease, stage 3 unspecified; E11.42 Type 2 diabetes mellitus with diabetic polyneuropathy; I27.29 Other secondary pulmonary hypertension; E78.5 Hyperlipidemia, unspecified; F32.A Depression, unspecified; F41.9 Anxiety disorder, unspecified; G40.909 Epilepsy, unspecified, not intractable, without status epilepticus; M19.90 Unspecified osteoarthritis, unspecified site; H54.7 Unspecified visual loss; K58.9 Irritable bowel syndrome, unspecified; R29.6 Repeated falls; Z91.81 History of falling; Z87.01 Personal history of pneumonia (recurrent); Z86.14 Personal history of Methicillin resistant Staphylococcus aureus infection; I27.20 Pulmonary hypertension, unspecified; G47.33 Obstructive sleep apnea (adult) (pediatric); I87.2 Venous insufficiency (chronic) (peripheral); Z79.01 Long term (current) use of anticoagulants; Z79.4 Long term (current) use of insulin; Z79.84 Long term (current) use of oral hypoglycemic drugs; Z79.899 Other long term (current) drug therapy; Z87.442 Personal history of urinary calculi; Z90.710 Acquired absence of both cervix and uterus; Z96.1 Presence of intraocular lens; Z98.42 Cataract extraction status, left eye; Z98.41 Cataract extraction status, right eye; Z90.49 Acquired absence of other specified parts of digestive tract
CPT/HCPCS: 36415; 71046; 80048; 80053; 83036; 83735; 83880; 84484; 85025; 85610; 85730; 93005; 94640; 96374; 99285

== ENCOUNTER 2023-09-07 14:21 | Inpatient (IN) | payer MEDICARE, BC ==
--- NOTE | 2023-09-07 14:59 | ED ---
General Adult HPI - General Chief complaint: Shortness of Breath Stated complaint: SOB Time Seen by Provider: 09/07/23 14:50 Source: patient, EMS, RN notes reviewed, old records reviewed Mode of arrival: EMS - History of Present Illness Initial comments: This is an 82-year-old female who presents emergency Department complaining of difficulty breathing. Patient states started this morning when she woke up. Patient states she was released out of the hospital but a week ago for congestive heart.. Patient states he feels same. Patient states the swelling in her legs is there but sense that it has been in the past. Patient denies any fever chills or cough per patient denies hearing any wheezing. Patient denies any chest pain or palpitations. Patient denies headache patient denies numbness weakness. Patient denies abdominal pain. - Related Data Home Medications Medication Instructions Recorded Confirmed Atorvastatin [Lipitor] 20 mg PO HS 07/15/14 08/29/23 Latanoprost Ophth [Xalatan 0.005%] 1 drop BOTH EYES HS 01/28/21 08/29/23 Montelukast [Singulair] 10 mg PO HS 01/28/21 08/29/23 Roflumilast [Daliresp] 500 mcg PO DAILY 01/28/21 08/29/23 Vit C/E/Zn/Coppr/Lutein/Zeaxan 1 cap PO BID 01/28/21 08/29/23 [Preservision Areds 2 Softgel] Ipratropium-Albuterol Nebulize 3 ml INHALATION RT-QID 09/03/21 08/29/23 [Duoneb 0.5 mg-3 mg/3 ml Soln] Insulin Lispro [humaLOG Kwikpen] See Protocol SQ AC-TID 07/23/22 08/29/23 Cyanocobalamin (Vitamin B-12) 1,000 mcg PO DAILY 12/10/22 08/29/23 [Vitamin B-12] Ergocalciferol (Vitamin D2) 1,250 mcg PO WE 12/10/22 08/29/23 [Drisdol (50,000 Iu)] Albuterol Sulfate [Albuterol 2 puff INHALATION RT-Q6H PRN 06/06/23 08/29/23 Sulfate Hfa] Ammonium Lactate Lotion 1 applic TOPICAL HS 06/06/23 08/29/23 [Lac-Hydrin 12% Lotion] Benzonatate [Tessalon Perle] 200 mg PO TID PRN 06/06/23 08/29/23 Famotidine [Pepcid] 20 mg PO DAILY 06/06/23 08/29/23 Insulin Glargine,Hum.rec.anlog 20 units SQ HS 06/06/23 08/29/23 [Lantus Solostar Pen] Levothyroxine Sodium [Synthroid] 100 mcg PO AC-BRKFST 06/06/23 08/29/23 Loperamide HCl [Imodium A-D] 2 mg PO Q6H PRN 06/06/23 08/29/23 Melatonin 5 mg PO HS 06/06/23 08/29/23 Metoprolol Tartrate [Lopressor] 75 mg PO TID 06/06/23 08/29/23 Nystatin 100,000Unit/gm Cream 1 applic TOPICAL BID 06/06/23 08/29/23 [Mycostatin Cream] Sennosides/Docusate Sodium 1 tab PO BID 06/06/23 08/29/23 [Senna-S 8.6-50 mg Tablet] amLODIPine [Norvasc] 2.5 mg PO DAILY 06/06/23 08/29/23 Acetaminophen Tab [Tylenol] 650 mg PO Q4H PRN 08/29/23 08/29/23 Fluticasone Nasal [place] [Flonase 1 spr EA NOSTRIL DAILY 08/29/23 08/29/23 Nasal [place]] Olopatadine HCl [Patanol 0.1%] 1 drop BOTH EYES BID 08/29/23 08/29/23 Sertraline HCl [Zoloft] 50 mg PO DAILY 08/29/23 08/29/23 Sertraline [Zoloft] 25 mg PO DAILY 08/29/23 08/29/23 hydrALAZINE HCL [Apresoline] 25 mg PO TID PRN 08/29/23 08/29/23 hydrOXYzine HCL [Atarax] 50 mg PO DAILY PRN 08/29/23 08/29/23 Previous Rx's Medication Instructions Recorded Apixaban [Eliquis] 2.5 mg PO BID #60 tab 06/10/23 Dapagliflozin Propanediol [Farxiga] 10 mg PO DAILY #30 tab 06/10/23 Furosemide [Lasix] 40 mg PO DAILY #60 tab 08/30/23 Allergies Allergy/AdvReac Type Severity Reaction Status Date / Time diclofenac sodium Allergy Unknown Verified 06/06/23 13:19 [From Voltaren] adhesive tape AdvReac Rash/Hives Verified 06/06/23 13:19 Review of Systems ROS Statement: Those systems with pertinent positive or pertinent negative responses have been documented in the HPI. ROS Other: All systems not noted in ROS Statement are negative. Past Medical History Past Medical History: Atrial Fibrillation, Cancer, Heart Failure, COPD, Diabetes Mellitus, Eye Disorder, Hyperlipidemia, Hypertension, Osteoarthritis (OA), Pneumonia, Renal Disease, Seizure Disorder, Sleep Apnea/CPAP/BIPAP Additional Past Medical History / Comment(s): IDDM type II, neuropathy bilateral feet, past hematuria, CKD stage III, nephrolithiasis, chronic respiratory failure/home oxygen 3L/[place] ATC, bronchitis, R breast cancer x2 with lumpectomies/radiation, RACHEL/cpap used, spinal stenosis/chronic back pain, IBS, seizure x2 as a teen and one in 2009, bilateral macular degeneration/very poor vision, current wound R lower leg/skin tear and is seen at [facility]/home nurse, [place] History of Any Multi-Drug Resistant Organisms: MRSA, VRE Date of last positivie culture/infection: 10/02/21 09/13/21 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 Past Anesthesia/Blood Transfusion Reactions: No Reported Reaction, Motion Sickness Past Psychological History: Anxiety, Depression Smoking Status: Former smoker Past Alcohol Use History: None Reported Past Drug Use History: None Reported - Past Family History Mother Additional Family Medical History / Comment(s): breast ca Father Family Medical History: Cancer Additional Family Medical History / Comment(s): Prostate cancer. General Exam - General Exam Comments Initial Comments: GENERAL: Patient is well-developed and well-nourished. Patient is nontoxic and well- hydrated and is in mild distress. ENT: Neck is soft and supple. No significant lymphadenopathy is noted. Oropharynx is clear. Moist mucous membranes. Neck has full range of motion without eliciting any pain. EYES: The sclera were anicteric and conjunctiva were pink and moist. Extraocular movements were intact and pupils were equal round and reactive to light. Eyelids were unremarkable. PULMONARY: Patient has crackles bilateral bases CARDIOVASCULAR: There is a regular rate and rhythm without any murmurs gallops or rubs. ABDOMEN: Soft and nontender with normal bowel sounds. SKIN: Skin is clear with no lesions or rashes and otherwise unremarkable. NEUROLOGIC: Patient is alert and oriented x3. Cranial nerves II through XII are grossly intact. Motor and sensory are also intact. Normal speech, volume and content. Symmetrical smile. MUSCULOSKELETAL: Normal extremities with adequate strength and full range of motion. LYMPHATICS: No significant lymphadenopathy is noted PSYCHIATRIC: Normal psychiatric evaluation. Course Vital Signs 09/07/23 14:42 Temperature 98.9 F Pulse Rate 82 Respiratory 16 Rate Blood Pressure 152/82 O2 Sat by Pulse 96 Oximetry Medical Decision Making - Medical Decision Making EKG is interpreted by myself. EKG shows atrial fibrillation 88 bpm QRS is 88 QT interval 34 QTC is 4:30. Patient's EKG shows no ST segment elevation or depression. Was pt. sent in by a medical professional or institution (RASHEL George, SENIOR ENGINEERING TEAM LEADER, urgent care, hospital, or group home...) When possible be specific @ -No Did you speak to anyone other than the patient for history (EMS, parent, family, police, friend...)? What history was obtained from this source @ -No Did you review nursing and triage notes (agree or disagree)? Why? @ -I reviewed and agree with nursing and triage notes Were old charts reviewed (outside hosp., previous admission, EMS record, old EKG, old radiological studies, urgent care reports/EKG's, group home records)? Report findings @ -I reviewed prior charts in prior lab work Differential Diagnosis (chest pain, altered mental status, abdominal pain women, abdominal pain men, vaginal bleeding, weakness, fever, dyspnea, syncope, headache, dizziness, GI bleed, back pain, seizure, CVA, palpatations, mental health, musculoskeletal)? @ -Differential Dyspnea: Coronary syndrome, arrhythmia, tamponade, asthma, COPD, pulmonary embolism, pneumonia, pneumothorax, pulmonary effusion, anaphylaxis, diabetic ketoacidosis, flailed chest, pulmonary contusion, diaphragmatic rupture, anemia, neuromuscular, this is not meant to be an all-inclusive list. EKG interpreted by me (3pts min.). @ -As above X-rays interpreted by me (1pt min.). @ -Chest x-ray shows no acute abnormality CT interpreted by me (1pt min.). @ -None done U/S interpreted by me (1pt. min.). @ -None done What testing was considered but not performed or refused? (CT, X-rays, U/S, labs)? Why? @ -None What meds were considered but not given or refused? Why? @ -None Did you discuss the management of the patient with other professionals (professionals i.e. , PA, SENIOR ENGINEERING TEAM LEADER, lab, RT, psych nurse, social services designee, financial institution treasurer, teacher, chief growth officer, case coordinator)? Give summary @ -I spoke with [facility] [place] physician's They Agreed to admit the patient and the patient wrote admitting orders Was smoking cessation discussed for >3mins.? @ -No Was critical care preformed (if so, how long)? @ -No Were there social determinants of health that impacted care today? How? (Homelessness, low income, unemployed, alcoholism, drug addiction, transportation, low edu. Level, literacy, decrease access to med. care, alf, rehab)? @ -No Was there de-escalation of care discussed even if they declined (Discuss DNR or withdrawal of care, Hospice)? DNR status @ -No What co-morbidities impacted this encounter? (DM, HTN, Smoking, COPD, CAD, Cancer, CVA, ARF, Chemo, Hep., AIDS, mental health diagnosis, sleep apnea, morbid obesity)? @ -None Was patient admitted / discharged? Hospital course, mention meds given and route, prescriptions, significant lab abnormalities, going to OR and other pertinent info. @ -Patient will be admitted to [facility] [place] physician's and cardiology be consulted patient was given Lasix in the emergency department and will have Lasix while on the floor Undiagnosed new problem with uncertain prognosis? @ -No Drug Therapy requiring intensive monitoring for toxicity (Heparin, Nitro, Insulin, Cardizem)? @ -No Were any procedures done? @ -No Diagnosis/symptom? @ -Pulmonary edema Acute, or Chronic, or Acute on Chronic? @ -Acute Uncomplicated (without systemic symptoms) or Complicated (systemic symptoms)? @ -Complicated Side effects of treatment? @ -No Exacerbation, Progression, or Severe Exacerbation? @ -No Poses a threat to life or bodily function? How? (Chest pain, [place], NM, pneumonia, PE, COPD, DKA, ARF, appy, cholecystitis, CVA, Diverticulitis, Homicidal, Suicidal, threat to staff... and all critical care pts) @ -Yes this could lead to hypoxia and end organ dysfunction - Lab Data Result diagrams: 09/07/23 15:11 09/07/23 17:22 Lab Results 09/07/23 09/07/23 09/07/23 Range/Units 15:11 17:22 17:22 WBC 12.2 H (3.8-10.6) k/uL RBC 4.25 (3.80-5.40) m/uL Hgb 11.9 (11.4-16.0) gm/dL Hct 38.9 (34.0-46.0) % MCV 91.6 (80.0-100.0) fL MCH 28.0 (25.0-35.0) pg MCHC 30.6 L (31.0-37.0) g/dL RDW 16.4 H (11.5-15.5) % Plt Count 241 (150-450) k/uL MPV 7.8 Neutrophils % (Manual) 68 % Lymphocytes % (Manual) 25 % Monocytes % (Manual) 3 % Eosinophils % (Manual) 4 % Neutrophils # (Manual) 8.30 H (1.3-7.7) k/uL Lymphocytes # (Manual) 3.05 (1.0-4.8) k/uL Monocytes # (Manual) 0.37 (0-1.0) k/uL Eosinophils # (Manual) 0.49 (0-0.7) k/uL Nucleated RBCs 0 (0-0) /100 WBC Manual Slide Review Performed Hypochromasia Marked Anisocytosis Slight PT (9.0-12.0) sec INR (<1.2) APTT (22.0-30.0) sec Sodium 142 (137-145) mmol/L Potassium 4.1 (3.5-5.1) mmol/L Chloride 105 (98-107) mmol/L Carbon Dioxide 28 (22-30) mmol/L Anion Gap 9 mmol/L BUN 42 H (7-17) mg/dL Creatinine 2.44 H (0.52-1.04) mg/dL Est GFR (CKD-EPI)AfAm 21 (>60 ml/min/1.73 sqM) Est GFR (CKD-EPI)NonAf 18 (>60 ml/min/1.73 sqM) Glucose 106 H (74-99) mg/dL Plasma Lactic Acid Hema (0.7-2.0) mmol/L Calcium 8.5 (8.4-10.2) mg/dL Magnesium 2.0 (1.6-2.3) mg/dL Total Bilirubin 0.8 (0.2-1.3) mg/dL AST 77 H (14-36) U/L ALT 21 (4-34) U/L Alkaline Phosphatase 353 H (38-126) U/L Troponin I <0.012 (0.000-0.034) ng/mL NT-Pro-B Natriuret Pep 2840 pg/mL Total Protein 7.3 (6.3-8.2) g/dL Albumin 3.1 L (3.5-5.0) g/dL 09/07/23 09/07/23 Range/Units 17:22 17:22 WBC (3.8-10.6) k/uL RBC (3.80-5.40) m/uL Hgb (11.4-16.0) gm/dL Hct (34.0-46.0) % MCV (80.0-100.0) fL MCH (25.0-35.0) pg MCHC (31.0-37.0) g/dL RDW (11.5-15.5) % Plt Count (150-450) k/uL MPV Neutrophils % (Manual) % Lymphocytes % (Manual) % Monocytes % (Manual) % Eosinophils % (Manual) % Neutrophils # (Manual) (1.3-7.7) k/uL Lymphocytes # (Manual) (1.0-4.8) k/uL Monocytes # (Manual) (0-1.0) k/uL Eosinophils # (Manual) (0-0.7) k/uL Nucleated RBCs (0-0) /100 WBC Manual Slide Review Hypochromasia Anisocytosis PT 12.0 (9.0-12.0) sec INR 1.2 H (<1.2) APTT 30.8 H (22.0-30.0) sec Sodium (137-145) mmol/L Potassium (3.5-5.1) mmol/L Chloride (98-107) mmol/L Carbon Dioxide (22-30) mmol/L Anion Gap mmol/L BUN (7-17) mg/dL Creatinine (0.52-1.04) mg/dL Est GFR (CKD-EPI)AfAm (>60 ml/min/1.73 sqM) Est GFR (CKD-EPI)NonAf (>60 ml/min/1.73 sqM) Glucose (74-99) mg/dL Plasma Lactic Acid Hema 1.1 (0.7-2.0) mmol/L Calcium (8.4-10.2) mg/dL Magnesium (1.6-2.3) mg/dL Total Bilirubin (0.2-1.3) mg/dL AST (14-36) U/L ALT (4-34) U/L Alkaline Phosphatase (38-126) U/L Troponin I (0.000-0.034) ng/mL NT-Pro-B Natriuret Pep pg/mL Total Protein (6.3-8.2) g/dL Albumin (3.5-5.0) g/dL Disposition Clinical Impression: Acute pulmonary edema Disposition: ADMITTED IP TO THIS HOSP Referrals: None,Stated [REFERRING] - 1-2 days Time of Disposition: 19:07
[2023-09-07 16:02] LABS: Anisocytosis Slight; HCT 38.9 % (34.0-46.0); HGB 11.9 gm/dL (11.4-16.0); Hypochromasia Marked; MCHC 30.6 g/dL (31.0-37.0); MCV 91.6 fL (80.0-100.0); Mean Platelet Volume 7.8; Platelet Count 241 k/uL (150-450); RBC 4.25 m/uL (3.80-5.40); RDW 16.4 % (11.5-15.5); WBC 12.2 k/uL (3.8-10.6)
--- NOTE | 2023-09-07 16:45 | XR ---
EXAMINATION TYPE: XR chest 2V DATE OF EXAM: 09/07/2023 COMPARISON: 08/29/2023 INDICATION: Difficulty breathing short of breath TECHNIQUE: Frontal and lateral views of the chest are obtained. FINDINGS: The heart size is mildly prominent. The pulmonary vasculature is prominent. There is diffuse increased lung markings. Correlate for pulmonary edema. IMPRESSION: 1. Focal correlation for congestive heart failure. Follow-up is recommended
[2023-09-07 17:08] LABS: Eosinophils # (M) 0.49 k/uL (0-0.7); Lymphocytes # (M) 3.05 k/uL (1.0-4.8); Monocytes # (M) 0.37 k/uL (0-1.0); Neutrophils % (M) 68 %; Nucleated Red Blood Cells 0 /100 WBC (0-0); Total Cells Counted 100
[2023-09-07 17:56] LABS: INR 1.2 (<1.2); Partial Thromboplastin Time 30.8 sec (22.0-30.0)
[2023-09-07] MEDS ORDERED: FUROSEMIDE 10 MG/ML 4 ML VIAL IV STA (18:05)
[2023-09-07 18:08] LABS: ALT 21 U/L (4-34); AST 77 U/L (14-36); African American GFR (CKD) 21 (>60 ml/min/1.73 sqM); Albumin 3.1 g/dL (3.5-5.0); Alkaline Phosphatase 353 U/L (38-126); Anion Gap 9 mmol/L; Blood Urea Nitrogen 42 mg/dL (7-17); Calcium 8.5 mg/dL (8.4-10.2); Carbon Dioxide 28 mmol/L (22-30); Chloride 105 mmol/L (98-107); Glucose 106 mg/dL (74-99); Non-African American GFR(CKD) 18 (>60 ml/min/1.73 sqM); Potassium 4.1 mmol/L (3.5-5.1); Sodium 142 mmol/L (137-145); Total Bilirubin 0.8 mg/dL (0.2-1.3); Total Protein 7.3 g/dL (6.3-8.2)
[2023-09-07 18:13] LABS: NT-Pro-B-Type Natriuretic Pept 2840 pg/mL
--- NOTE | 2023-09-07 21:58 | P.HPIM ---
History of Present Illness H&P Date: 09/07/23 Patient is a 82-year-old female with a PMH of diastolic CHF, COPD with chronic hypoxic respiratory failure on 3 L nasal cannula oxygen continuously at home, A. fib on Eliquis, type II DM, hypertension, hyperlipidemia, hypothyroidism, chronic kidney disease resident of an assisted living facility who presents to the emergency room with complaints of shortness of breath. The patient was recently hospitalized for similar complaints from 08/29-08/30. Reports gradually worsening dyspnea on exertion with chronic lower extremity edema somewhat unchanged. She was discharged during prior hospitalization on the same dose of Lasix 40 mg by mouth daily, which the patient believes may be why she is now r eturning to the hospital. She denies fainting chest discomfort, fever, chills, cough, nausea, vomiting. In the emergency room, the patient's SpO2 was 96% on 3 L nasal cannula oxygen. Chest x-ray was consistent with CHF. EKG revealed A. fib at 88 bpm. Laboratory evaluation revealed a troponin less than 0.012, leukocytosis 12.2, proBNP 2840 (down from prior hospitalization of 3780), BUN 42, creatinine 2.44 (previously 2.0 during prior hospitalization). ED documentation reviewed and case discussed with ED provider. Review of systems: Pertinent positives and negatives as discussed in HPI, a complete review of systems was performed and all other systems are negative. Physical examination: Vital signs reviewed General: non toxic, no distress, appears at stated age, normal weight Derm: no unusual rashes/lesions, warm Head: atraumatic, normocephalic, symmetric Eyes: EOMI, no lid lag, anicteric sclera, pupils equal round reactive to light ENT: Nose and ears atraumatic Neck: No cervical lymphadenopathy, trachea midline, supple Mouth: no lip lesion, mucus membranes moist Cardiovascular: S1S2 reg, no murmur, positive dorsalis pedis pulse bilateral, 2+ bilateral lower extremity pitting edema with venous stasis changes noted Lungs: Bibasilar rales with mild expiratory wheezing, no accessory muscle use Abdominal: soft, nontender to palpation, no guarding Ext: muscle strength 4 out of 5 in all 4 extremities grossly, no gross muscle atrophy, no contractures, Neuro: CN II-XI grossly intact, no gross focal neuro deficits Psych: Alert, oriented, appropriate affect Assessment: Mild diastolic CHF exacerbation DEANDRE on chronic kidney disease Leukocytosis, likely due to acute stressor, no signs of active infection at this time Chronic conditions: Type II DM, hypertension, hyperlipidemia, hypothyroidism, A. fib Imaging: In the emergency room, the patient's SpO2 was 96% on 3 L nasal cannula oxygen. Chest x-ray was consistent with CHF. EKG revealed A. fib at 88 bpm. Data Review: Laboratory evaluation revealed a troponin less than 0.012, leukocytosis 12.2, proBNP 2840 (down from prior hospitalization of 3780), BUN 42, creatinine 2.44 (previously 2.0 during prior hospitalization). Plan: Continue with Lasix 40 mg IV push every 12 hourly Intake and output, daily weights Cardiology consulted Cardiac monitoring Insulin sliding scale and blood glucose monitoring Continue with home meds DVT prophylaxis: Eliquis The patient is admitted with an anticipated greater than 2 midnight stay for evaluation of CHF exacerbation CODE STATUS: Full Code Discussed with: Patient Anticipated discharge place: Home Past Medical History Past Medical History: Atrial Fibrillation, Cancer, Heart Failure, COPD, Diabetes Mellitus, Eye Disorder, Hyperlipidemia, Hypertension, Osteoarthritis (OA), Pneumonia, Renal Disease, Seizure Disorder, Sleep Apnea/CPAP/BIPAP Additional Past Medical History / Comment(s): IDDM type II, neuropathy bilateral feet, past hematuria, CKD stage III, nephrolithiasis, chronic respiratory failure/home oxygen 3L/[place] ATC, bronchitis, R breast cancer x2 with lumpectomies/radiation, RACHEL/cpap used, spinal stenosis/chronic back pain, IBS, seizure x2 as a teen and one in 2009, bilateral macular degeneration/very poor vision, current wound R lower leg/skin tear and is seen at [facility]/home nurse, [place] History of Any Multi-Drug Resistant Organisms: MRSA, VRE Date of last positivie culture/infection: 10/02/21 09/13/21 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 Past Anesthesia/Blood Transfusion Reactions: No Reported Reaction, Motion Sickness Past Psychological History: Anxiety, Depression Smoking Status: Former smoker Past Alcohol Use History: None Reported Past Drug Use History: None Reported - Past Family History Mother Additional Family Medical History / Comment(s): breast ca Father Family Medical History: Cancer Additional Family Medical History / Comment(s): Prostate cancer. Medications and Allergies Home Medications Medication Instructions Recorded Confirmed Type Atorvastatin [Lipitor] 20 mg PO HS 07/15/14 09/07/23 History Latanoprost Ophth [Xalatan 0.005%] 1 drop BOTH EYES HS 01/28/21 09/07/23 History Montelukast [Singulair] 10 mg PO HS 01/28/21 09/07/23 History Roflumilast [Daliresp] 500 mcg PO DAILY 01/28/21 09/07/23 History Vit C/E/Zn/Coppr/Lutein/Zeaxan 1 cap PO BID 01/28/21 09/07/23 History [Preservision Areds 2 Softgel] Ipratropium-Albuterol Nebulize 3 ml INHALATION RT-QID 09/03/21 09/07/23 History [Duoneb 0.5 mg-3 mg/3 ml Soln] Insulin Lispro [humaLOG Kwikpen] See Protocol SQ AC-TID 07/23/22 09/07/23 History Cyanocobalamin (Vitamin B-12) 1,000 mcg PO DAILY 12/10/22 09/07/23 History [Vitamin B-12] Ergocalciferol (Vitamin D2) 1,250 mcg PO WE 12/10/22 09/07/23 History [Drisdol (50,000 Iu)] Albuterol Sulfate [Albuterol 2 puff INHALATION RT-Q6H PRN 06/06/23 09/07/23 History Sulfate Hfa] Ammonium Lactate Lotion 1 applic TOPICAL HS 06/06/23 09/07/23 History [Lac-Hydrin 12% Lotion] Benzonatate [Tessalon Perle] 200 mg PO TID PRN 06/06/23 09/07/23 History Famotidine [Pepcid] 20 mg PO DAILY 06/06/23 09/07/23 History Insulin Glargine,Hum.rec.anlog 20 units SQ HS 06/06/23 09/07/23 History [Lantus Solostar Pen] Levothyroxine Sodium [Synthroid] 100 mcg PO AC-BRKFST 06/06/23 09/07/23 History Loperamide HCl [Imodium A-D] 2 mg PO Q6H PRN 06/06/23 09/07/23 History Melatonin 5 mg PO HS 06/06/23 09/07/23 History Metoprolol Tartrate [Lopressor] 75 mg PO TID 06/06/23 09/07/23 History Nystatin 100,000Unit/gm Cream 1 applic TOPICAL BID 06/06/23 09/07/23 History [Mycostatin Cream] Sennosides/Docusate Sodium 1 tab PO BID 06/06/23 09/07/23 History [Senna-S 8.6-50 mg Tablet] amLODIPine [Norvasc] 2.5 mg PO DAILY 06/06/23 09/07/23 History Apixaban [Eliquis] 2.5 mg PO BID #60 tab 06/10/23 09/07/23 Rx Dapagliflozin Propanediol [Farxiga] 10 mg PO DAILY #30 tab 06/10/23 09/07/23 Rx Acetaminophen Tab [Tylenol] 650 mg PO Q4H PRN 08/29/23 09/07/23 History Fluticasone Nasal [place] [Flonase 1 spr EA NOSTRIL DAILY 08/29/23 09/07/23 History Nasal [place]] Olopatadine HCl [Patanol 0.1%] 1 drop BOTH EYES BID 08/29/23 09/07/23 History Sertraline HCl [Zoloft] 50 mg PO DAILY 08/29/23 09/07/23 History Sertraline [Zoloft] 25 mg PO DAILY 08/29/23 08/29/23 History hydrALAZINE HCL [Apresoline] 25 mg PO TID PRN 08/29/23 09/07/23 History hydrOXYzine HCL [Atarax] 50 mg PO DAILY PRN 08/29/23 09/07/23 History Furosemide [Lasix] 40 mg PO DAILY #60 tab 08/30/23 09/07/23 Rx Allergies Allergy/AdvReac Type Severity Reaction Status Date / Time diclofenac sodium Allergy pt states Verified 09/07/23 20:14 [From Voltaren] kidney failure adhesive tape AdvReac Rash/Hives Verified 09/07/23 20:14 Physical Exam Vitals: Vital Signs Temp Pulse Resp BP Pulse Ox 09/07/23 19:12 86 20 132/84 96 09/07/23 14:42 98.9 F 82 16 152/82 96 Intake and Output 09/07/23 09/07/23 09/07/23 06:59 14:59 22:59 Other: Weight 99.79 kg Results CBC & Chem 7: 09/07/23 15:11 09/07/23 17:22 Labs: Abnormal Lab Results - Last 24 Hours (Table) 09/07/23 09/07/23 09/07/23 Range/Units 15:11 17:22 17:22 WBC 12.2 H (3.8-10.6) k/uL MCHC 30.6 L (31.0-37.0) g/dL RDW 16.4 H (11.5-15.5) % Neutrophils # (Manual) 8.30 H (1.3-7.7) k/uL INR 1.2 H (<1.2) APTT 30.8 H (22.0-30.0) sec BUN 42 H (7-17) mg/dL Creatinine 2.44 H (0.52-1.04) mg/dL Glucose 106 H (74-99) mg/dL AST 77 H (14-36) U/L Alkaline Phosphatase 353 H (38-126) U/L Albumin 3.1 L (3.5-5.0) g/dL
[2023-09-07] MEDS: MELATONIN 5 MG TABLET PO SCH (22:23)
[2023-09-07] MEDS: APIXABAN 2.5 MG TABLET PO SCH (22:23)
[2023-09-07] MEDS: METOPROLOL TARTRATE 25 MG TAB PO SCH (22:23)
[2023-09-07 22:27] LABS: Glucose,Whole Blood 152 mg/dL (70-110)
[2023-09-08] MEDS: NITROGLYCERIN OINT 1 INCH/GM PACKET TOPICAL SCH ×2 (04:24→06:43)
[2023-09-08] MEDS ORDERED: FUROSEMIDE 10 MG/ML 4 ML VIAL IV SCH (06:00)
[2023-09-08 06:56] LABS: African American GFR (CKD) 21 (>60 ml/min/1.73 sqM); Anion Gap 10 mmol/L; Blood Urea Nitrogen 48 mg/dL (7-17); Calcium 8.9 mg/dL (8.4-10.2); Carbon Dioxide 30 mmol/L (22-30); Chloride 102 mmol/L (98-107); Glucose 124 mg/dL (74-99); Non-African American GFR(CKD) 18 (>60 ml/min/1.73 sqM); Potassium 4.2 mmol/L (3.5-5.1); Sodium 142 mmol/L (137-145)
[2023-09-08] MEDS: IPRATROPIUM-ALBUTEROL 3 ML NEB INHALATION SCH ×4 (07:56→20:04)
[2023-09-08 08:42] LABS: Glucose,Whole Blood 130 mg/dL (70-110)
[2023-09-08] MEDS: INSULIN ASPART (NovoLOG) 100 UNIT/ML VIAL SQ SCH ×4 (08:50→22:39)
[2023-09-08] MEDS: LEVOTHYROXINE 100 MCG TAB PO SCH (08:59)
[2023-09-08] MEDS: APIXABAN 2.5 MG TABLET PO SCH ×2 (08:59→22:39)
[2023-09-08] MEDS: SERTRALINE 50 MG TAB PO SCH (08:59)
[2023-09-08] MEDS: amLODIPine 2.5 MG TAB PO SCH (08:59)
[2023-09-08] MEDS: METOPROLOL TARTRATE 25 MG TAB PO SCH ×3 (08:59→22:39)
--- NOTE | 2023-09-08 09:43 | P.CRDCN ---
History of Present Illness History of present illness: HISTORY OF PRESENT ILLNESS: This is a 82-year-old female with a past medical history significant for atrial fibrillation, hypertension, hyperlipidemia, CHF, and COPD. Patient follows in the office with Dr. Umanzor. We have been asked to see the patient in consultation for CHF. Patient examined at the bedside in the emergency room. Patient was brought to the hospital secondary to low oxygen levels. Patient was recently admitted to the hospital secondary to COPD and CHF exacerbation. Patient states a couple weeks ago she was very short of breath but over the past week she has been feeling better. She currently denies any shortness of breath. She denies any chest pain or pressure. She was started on IV Lasix. * EKG reveals atrial fibrillation with controlled ventricular rate * Chest xray focal correlation for congestive heart failure. * Laboratory data: W BC 12.2. Hemoglobin 11.9. Platelet count 241. Sodium 142. Potassium 4.2. BUN 48. Creatinine 2.44. ProBNP 2840. * Current home cardiac medications include Eliquis 2.5mg BID, Lipitor 20 mg at night, amlodipine 2.5 mg daily, Lasix 40 mg daily, metoprolol tartrate 75 mg 3 times a day * Most recent echocardiogram obtained in May 2023 revealing ejection fraction 55-60%, severe pulmonary hypertension, and mild aortic stenosis * Cardiac catheterization history: Unknown REVIEW OF SYSTEMS: At the time of my exam: CONSTITUTIONAL: Denies fever or chills. HEENT: Denies blurred vision, vision changes, or eye pain. Denies hemoptysis CARDIOVASCULAR: Denies chest pain. Denies orthopnea. Denies PND. Denies palpitations RESPIRATORY: Denies shortness of breath. GASTROINTESTINAL: Denies abdominal pain. Denies nausea or vomiting. HEMATOLOGIC: Denies bleeding disorders. GENITOURINARY: Denies any blood in urine. SKIN: Denies pruitis. Denies rash. PHYSICAL EXAM: VITAL SIGNS: Reviewed. GENERAL: Well-developed in no acute distress. HEENT: Head is normocephalic. Pupils are equal, round. Sclerae anicteric. Mucous membranes of the mouth are moist. Neck supple. No JVD or thyromegaly LUNGS: Respirations even and unlabored. Lungs diminished HEART: Irregular rate and rhythm. S1 and S2 heard. ABDOMEN: Soft. Nondistended. Nontender. EXTREMITIES: Normal range of motion. No clubbing or cyanosis. Peripheral pulses intact. Trace bilateral lower extremity with chronic skin discoloration NEUROLOGIC: Awake and alert. Oriented x 3. ASSESSMENT: Shortness of breath, resolved Mild exacerbation of heart failure with preserved ejection fraction Severe pulmonary hypertension Persistent atrial fibrillation Hypertension Hyperlipidemia COPD with home oxygen use Chronic kidney disease Morbid obesity Former nicotine dependence PLAN: No need to repeat echocardiogram as this was performed in May 2023 Discontinue IV Lasix Begin oral Lasix 60 mg starting tomorrow Patient is currently stable from a cardiac standpoint We will follow on an as-needed basis. Please reconsult if needed. Nurse practitioner note has been reviewed by physician. Signing provider agrees with the documented findings, assessment, and plan of care. Past Medical History Past Medical History: Atrial Fibrillation, Cancer, Heart Failure, COPD, Diabetes Mellitus, Eye Disorder, Hyperlipidemia, Hypertension, Osteoarthritis (OA), Pneumonia, Renal Disease, Seizure Disorder, Sleep Apnea/CPAP/BIPAP Additional Past Medical History / Comment(s): IDDM type II, neuropathy bilateral feet, past hematuria, CKD stage III, nephrolithiasis, chronic respiratory failure/home oxygen 3L/[place] ATC, bronchitis, R breast cancer x2 with lumpectomies/radiation, RACHEL/cpap used, spinal stenosis/chronic back pain, IBS, seizure x2 as a teen and one in 2009, bilateral macular degeneration/very poor vision, current wound R lower leg/skin tear and is seen at [facility]/home nurse, [place] History of Any Multi-Drug Resistant Organisms: MRSA, VRE Date of last positivie culture/infection: 10/02/21 09/13/21 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 Past Anesthesia/Blood Transfusion Reactions: No Reported Reaction, Motion Sickness Past Psychological History: Anxiety, Depression Smoking Status: Former smoker Past Alcohol Use History: None Reported Past Drug Use History: None Reported - Past Family History Mother Additional Family Medical History / Comment(s): breast ca Father Family Medical History: Cancer Additional Family Medical History / Comment(s): Prostate cancer. Medications and Allergies Home Medications Medication Instructions Recorded Confirmed Type Atorvastatin [Lipitor] 20 mg PO HS 07/15/14 09/07/23 History Latanoprost Ophth [Xalatan 0.005%] 1 drop BOTH EYES HS 01/28/21 09/07/23 History Montelukast [Singulair] 10 mg PO HS 01/28/21 09/07/23 History Roflumilast [Daliresp] 500 mcg PO DAILY 01/28/21 09/07/23 History Vit C/E/Zn/Coppr/Lutein/Zeaxan 1 cap PO BID 01/28/21 09/07/23 History [Preservision Areds 2 Softgel] Ipratropium-Albuterol Nebulize 3 ml INHALATION RT-QID 09/03/21 09/07/23 History [Duoneb 0.5 mg-3 mg/3 ml Soln] Insulin Lispro [humaLOG Kwikpen] See Protocol SQ AC-TID 07/23/22 09/07/23 History Cyanocobalamin (Vitamin B-12) 1,000 mcg PO DAILY 12/10/22 09/07/23 History [Vitamin B-12] Ergocalciferol (Vitamin D2) 1,250 mcg PO WE 12/10/22 09/07/23 History [Drisdol (50,000 Iu)] Albuterol Sulfate [Albuterol 2 puff INHALATION RT-Q6H PRN 06/06/23 09/07/23 History Sulfate Hfa] Ammonium Lactate Lotion 1 applic TOPICAL HS 06/06/23 09/07/23 History [Lac-Hydrin 12% Lotion] Benzonatate [Tessalon Perle] 200 mg PO TID PRN 06/06/23 09/07/23 History Famotidine [Pepcid] 20 mg PO DAILY 06/06/23 09/07/23 History Insulin Glargine,Hum.rec.anlog 20 units SQ HS 06/06/23 09/07/23 History [Lantus Solostar Pen] Levothyroxine Sodium [Synthroid] 100 mcg PO AC-BRKFST 06/06/23 09/07/23 History Loperamide HCl [Imodium A-D] 2 mg PO Q6H PRN 06/06/23 09/07/23 History Melatonin 5 mg PO HS 06/06/23 09/07/23 History Metoprolol Tartrate [Lopressor] 75 mg PO TID 06/06/23 09/07/23 History Nystatin 100,000Unit/gm Cream 1 applic TOPICAL BID 06/06/23 09/07/23 History [Mycostatin Cream] Sennosides/Docusate Sodium 1 tab PO BID 06/06/23 09/07/23 History [Senna-S 8.6-50 mg Tablet] amLODIPine [Norvasc] 2.5 mg PO DAILY 06/06/23 09/07/23 History Apixaban [Eliquis] 2.5 mg PO BID #60 tab 06/10/23 09/07/23 Rx Dapagliflozin Propanediol [Farxiga] 10 mg PO DAILY #30 tab 06/10/23 09/07/23 Rx Acetaminophen Tab [Tylenol] 650 mg PO Q4H PRN 08/29/23 09/07/23 History Fluticasone Nasal [place] [Flonase 1 spr EA NOSTRIL DAILY 08/29/23 09/07/23 History Nasal [place]] Olopatadine HCl [Patanol 0.1%] 1 drop BOTH EYES BID 08/29/23 09/07/23 History Sertraline HCl [Zoloft] 50 mg PO DAILY 08/29/23 09/07/23 History Sertraline [Zoloft] 25 mg PO DAILY 08/29/23 08/29/23 History hydrALAZINE HCL [Apresoline] 25 mg PO TID PRN 08/29/23 09/07/23 History hydrOXYzine HCL [Atarax] 50 mg PO DAILY PRN 08/29/23 09/07/23 History Furosemide [Lasix] 40 mg PO DAILY #60 tab 08/30/23 09/07/23 Rx Allergies Allergy/AdvReac Type Severity Reaction Status Date / Time diclofenac sodium Allergy pt states Verified 09/07/23 20:14 [From Voltaren] kidney failure adhesive tape AdvReac Rash/Hives Verified 09/07/23 20:14 Physical Exam Vitals: Vital Signs Temp Pulse Resp BP Pulse Ox 09/08/23 08:52 86 157/93 09/08/23 08:15 84 09/08/23 07:59 88 09/08/23 07:58 97 09/08/23 06:40 73 24 146/90 95 09/08/23 05:00 93 24 145/93 93 L 09/08/23 01:00 80 24 142/76 93 L 09/08/23 00:00 75 24 124/69 91 L 09/07/23 22:00 90 28 H 129/84 95 09/07/23 19:12 86 20 132/84 96 09/07/23 14:42 98.9 F 82 16 152/82 96 Results 09/07/23 15:11 09/08/23 06:11 Cardiac Enzymes 09/07/23 09/07/23 Range/Units 17:22 17:22 AST 77 H (14-36) U/L Troponin I <0.012 (0.000-0.034) ng/mL Coagulation 09/07/23 Range/Units 17:22 PT 12.0 (9.0-12.0) sec APTT 30.8 H (22.0-30.0) sec CBC 09/07/23 Range/Units 15:11 WBC 12.2 H (3.8-10.6) k/uL RBC 4.25 (3.80-5.40) m/uL Hgb 11.9 (11.4-16.0) gm/dL Hct 38.9 (34.0-46.0) % Plt Count 241 (150-450) k/uL Comprehensive Metabolic Panel 09/07/23 09/08/23 Range/Units 17:22 06:11 Sodium 142 142 (137-145) mmol/L Potassium 4.1 4.2 (3.5-5.1) mmol/L Chloride 105 102 (98-107) mmol/L Carbon Dioxide 28 30 (22-30) mmol/L BUN 42 H 48 H (7-17) mg/dL Creatinine 2.44 H 2.44 H (0.52-1.04) mg/dL Glucose 106 H 124 H (74-99) mg/dL Calcium 8.5 8.9 (8.4-10.2) mg/dL AST 77 H (14-36) U/L ALT 21 (4-34) U/L Alkaline Phosphatase 353 H (38-126) U/L Total Protein 7.3 (6.3-8.2) g/dL Albumin 3.1 L (3.5-5.0) g/dL Current Medications Generic Name Dose Route Start Last Admin Trade Name Evansq PRN Reason Stop Dose Admin Albuterol/Ipratropium 3 ml 09/08/23 08:00 09/08/23 07:56 Ipratropium-Albuterol 3 Ml Neb INHALATION 3 ml RT-QID JENNIFER Administration Amlodipine Besylate 2.5 mg 09/08/23 09:00 09/08/23 08:59 Amlodipine 2.5 Mg Tab PO 2.5 mg DAILY JENNIFER Administration Apixaban 2.5 mg 09/07/23 22:00 09/08/23 08:59 Apixaban 2.5 Mg Tablet PO 2.5 mg BID [facility] Administration Protocol Atorvastatin Calcium 20 mg 09/08/23 21:00 Atorvastatin 20 Mg Tab PO HS [facility] Fluticasone Propionate 1 spray 09/08/23 09:00 Fluticasone 50mcg/[place] Nasal 16gm EA NOSTRIL DAILY [facility] Furosemide 60 mg 09/09/23 09:00 Furosemide 20 Mg Tab PO DAILY [facility] Insulin Aspart 0 unit 09/08/23 07:30 09/08/23 08:50 Insulin Aspart (Novolog) 100 Unit/Ml Vial SQ Not Given ACHS [facility] Protocol Ketotifen Fumarate 1 drops 09/08/23 09:00 Ketotifen 0.025% Ophth Drops 5 Ml Btl BOTH EYES BID [facility] Latanoprost 1 drops 09/08/23 21:00 Latanoprost 0.005% Ophth Drops 2.5 Ml Btl BOTH EYES HS [facility] Levothyroxine Sodium 100 mcg 09/08/23 07:30 09/08/23 08:59 Levothyroxine 100 Mcg Tab PO 100 mcg AC-BRKFST [facility] Administration Melatonin 5 mg 09/07/23 22:00 09/07/23 22:23 Melatonin 5 Mg Tablet PO 5 mg HS [facility] Administration Metoprolol Tartrate 75 mg 09/07/23 22:00 09/08/23 08:59 Metoprolol Tartrate 25 Mg Tab PO 75 mg TID JENNIFER Administration Montelukast Sodium 10 mg 09/08/23 21:00 Montelukast 10 Mg Tab PO HS [facility] Sertraline HCl 50 mg 09/08/23 09:00 09/08/23 08:59 Sertraline 50 Mg Tab PO 50 mg DAILY JENNIFER Administration 09/07/23 15:11 09/08/23 06:11
[2023-09-08 10:48] LABS: Anisocytosis Slight; HCT 39.6 % (34.0-46.0); Hypochromasia Marked; MCH 28.6 pg (25.0-35.0); MCHC 30.3 g/dL (31.0-37.0); MCV 94.4 fL (80.0-100.0); Mean Platelet Volume 7.6; Platelet Count 200 k/uL (150-450); RBC 4.19 m/uL (3.80-5.40); RDW 16.5 % (11.5-15.5); WBC 11.2 k/uL (3.8-10.6)
[2023-09-08 11:34] LABS: Glucose,Whole Blood 292 mg/dL (70-110)
[2023-09-08] MEDS: FLUTICASONE 50MCG/SPRAY NASAL 16GM EA NOSTRIL SCH (11:39)
[2023-09-08] MEDS: KETOTIFEN 0.025% OPHTH DROPS 5 ML BTL BOTH EYES SCH ×2 (11:39→22:39)
[2023-09-08] MEDS ORDERED: ALBUTEROL NEBULIZED 2.5 MG/3 ML INHALATION PRN (13:41)
[2023-09-08] MEDS ORDERED: hydrALAZINE HCL 25 MG TAB PO PRN (13:41)
--- NOTE | 2023-09-08 13:52 | P.PN ---
Subjective Progress Note Date: 09/08/23 Hospital Course: 82-year-old female with a PMH of diastolic CHF, COPD with chronic hypoxic respiratory failure on 3 L nasal cannula oxygen continuously at home, A. fib on Eliquis, type II DM, hypertension, hyperlipidemia, hypothyroidism, chronic kidney disease resident of an assisted living facility who presents to the emergency room with complaints of shortness of breath. In the emergency room, the patient's SpO2 was 96% on 3 L nasal cannula oxygen. Chest x-ray was consistent with CHF. EKG revealed A. fib at 88 bpm. Laboratory evaluation revealed a troponin less than 0.012, leukocytosis 12.2, proBNP 2840 (down from prior hospitalization of 3780), BUN 42, creatinine 2.44 (previously 2.0 during prior hospitalization). Subjective: Patient seen and examined at bedside. No acute events overnight. Pertinent positives and negatives as discussed above, a complete review of systems was performed and all other systems are negative. Vitals Signs Reviewed. General: non toxic, no distress, appears at stated age, normal weight Derm: no unusual rashes/lesions, warm Head: atraumatic, normocephalic, symmetric Eyes: EOMI, no lid lag, anicteric sclera, pupils equal round reactive to light ENT: Nose and ears atraumatic Neck: No cervical lymphadenopathy, trachea midline, supple Mouth: no lip lesion, mucus membranes moist Cardiovascular: S1S2 reg, no murmur, positive dorsalis pedis pulse bilateral, 2+ bilateral lower extremity pitting edema with venous stasis changes noted Lungs: Bibasilar rales with mild expiratory wheezing, no accessory muscle use Abdominal: soft, nontender to palpation, no guarding Ext: muscle strength 4 out of 5 in all 4 extremities grossly, no gross muscle atrophy, no contractures, Neuro: CN II-XI grossly intact, no gross focal neuro deficits Psych: Alert, oriented, appropriate affect Data Reviewed Today: Pertinent Labs: WBC 11.2, hemoglobin 12, potassium 4.2, creatinine 2.44, blood sugars range between 124-152 Imaging: No new imaging Assessment and Plan: Mild diastolic CHF exacerbation DEANDRE on chronic kidney disease, possibly cardiorenal Leukocytosis, likely due to acute stressor, no signs of active infection at this time Type 2 diabetes -Cardiology note reviewed, and Lasix discontinued, started on oral Lasix 60 mg -Cardiology signed off -Repeat BMP and magnesium tomorrow -Sliding scale insulin Chronic conditions: Type II DM, hypertension, hyperlipidemia, hypothyroidism, A. fib, depression DVT ppx: Eliquis Code status: Full code Anticipated discharge place: Back to assisted living facility Anticipated discharge time: Likely tomorrow Objective - Vital Signs Vital signs: Vital Signs Temp 98.9 F 09/07/23 14:42 Pulse 74 09/08/23 11:19 Resp 14 09/08/23 11:45 BP 131/80 09/08/23 11:45 Pulse Ox 96 09/08/23 11:45 FiO2 Intake & Output 09/07/23 09/08/23 09/08/23 18:59 06:59 18:59 Output Total 800 Balance -800 Weight 99.79 kg Output: Urine 800 - Labs CBC & Chem 7: 09/08/23 10:08 09/08/23 06:11 Labs: Abnormal Lab Results - Last 24 Hours (Table) 09/07/23 09/07/23 09/07/23 Range/Units 15:11 17:22 17:22 WBC 12.2 H (3.8-10.6) k/uL MCHC 30.6 L (31.0-37.0) g/dL RDW 16.4 H (11.5-15.5) % Neutrophils # (Manual) 8.30 H (1.3-7.7) k/uL INR 1.2 H (<1.2) APTT 30.8 H (22.0-30.0) sec BUN 42 H (7-17) mg/dL Creatinine 2.44 H (0.52-1.04) mg/dL Glucose 106 H (74-99) mg/dL POC Glucose (mg/dL) (70-110) mg/dL AST 77 H (14-36) U/L Alkaline Phosphatase 353 H (38-126) U/L Albumin 3.1 L (3.5-5.0) g/dL 09/07/23 09/08/23 09/08/23 Range/Units 22:25 06:11 08:37 WBC (3.8-10.6) k/uL MCHC (31.0-37.0) g/dL RDW (11.5-15.5) % Neutrophils # (Manual) (1.3-7.7) k/uL INR (<1.2) APTT (22.0-30.0) sec BUN 48 H (7-17) mg/dL Creatinine 2.44 H (0.52-1.04) mg/dL Glucose 124 H (74-99) mg/dL POC Glucose (mg/dL) 152 H 130 H (70-110) mg/dL AST (14-36) U/L Alkaline Phosphatase (38-126) U/L Albumin (3.5-5.0) g/dL 09/08/23 09/08/23 Range/Units 10:08 11:33 WBC 11.2 H (3.8-10.6) k/uL MCHC 30.3 L (31.0-37.0) g/dL RDW 16.5 H (11.5-15.5) % Neutrophils # (Manual) (1.3-7.7) k/uL INR (<1.2) APTT (22.0-30.0) sec BUN (7-17) mg/dL Creatinine (0.52-1.04) mg/dL Glucose (74-99) mg/dL POC Glucose (mg/dL) 292 H (70-110) mg/dL AST (14-36) U/L Alkaline Phosphatase (38-126) U/L Albumin (3.5-5.0) g/dL
[2023-09-08 16:57] LABS: Glucose,Whole Blood 162 mg/dL (70-110)
[2023-09-08] MEDS ORDERED: MONTELUKAST 10 MG TAB PO SCH (21:00)
[2023-09-08] MEDS ORDERED: ATORVASTATIN 20 MG TAB PO SCH (21:00)
[2023-09-08] MEDS ORDERED: LATANOPROST 0.005% OPHTH DROPS 2.5 ML BTL BOTH EYES SCH (21:00)
[2023-09-08 22:16] LABS: Glucose,Whole Blood 164 mg/dL (70-110)
[2023-09-08] MEDS: MELATONIN 5 MG TABLET PO SCH (22:39)
[2023-09-08] MEDS: SENNOSIDES-DOCUSATE SODIUM 1 EACH TAB PO SCH (22:39)
[2023-09-09 06:06] LABS: Glucose,Whole Blood 220 mg/dL (70-110)
[2023-09-09] MEDS: LEVOTHYROXINE 100 MCG TAB PO SCH (06:47)
[2023-09-09] MEDS: INSULIN ASPART (NovoLOG) 100 UNIT/ML VIAL SQ SCH ×2 (06:47→12:08)
[2023-09-09] MEDS: IPRATROPIUM-ALBUTEROL 3 ML NEB INHALATION SCH ×4 (08:32→15:35)
[2023-09-09] MEDS ORDERED: FAMOTIDINE 20 MG TAB PO SCH (09:00)
[2023-09-09] MEDS ORDERED: SERTRALINE 25 MG TAB PO SCH (09:00)
[2023-09-09] MEDS ORDERED: FUROSEMIDE 10 MG/ML 4 ML VIAL IV SCH (09:00)
[2023-09-09] MEDS ORDERED: CYANOCOBALAMIN 500 MCG TAB PO SCH (09:00)
[2023-09-09] MEDS ORDERED: DAPAGLIFLOZIN PROPANEDIOL 10 MG TABLET PO SCH (09:00)
[2023-09-09] MEDS ORDERED: FUROSEMIDE 20 MG TAB PO SCH (09:00)
[2023-09-09] MEDS ORDERED: Roflumilast [Daliresp] 500 MCG Tablet PO SCH (09:00)
[2023-09-09 09:17] VITALS: PULSE 82
[2023-09-09] MEDS: amLODIPine 2.5 MG TAB PO SCH (10:07)
[2023-09-09] MEDS: METOPROLOL TARTRATE 25 MG TAB PO SCH (10:08)
[2023-09-09] MEDS: SERTRALINE 50 MG TAB PO SCH (10:08)
[2023-09-09] MEDS: FLUTICASONE 50MCG/SPRAY NASAL 16GM EA NOSTRIL SCH (10:08)
[2023-09-09] MEDS: KETOTIFEN 0.025% OPHTH DROPS 5 ML BTL BOTH EYES SCH (10:08)
[2023-09-09] MEDS: SENNOSIDES-DOCUSATE SODIUM 1 EACH TAB PO SCH (10:08)
[2023-09-09] MEDS: APIXABAN 2.5 MG TABLET PO SCH (10:08)
[2023-09-09 11:28] LABS: Blood Urea Nitrogen 44.4 mg/dL (9.0-27.0); Calcium 8.8 mg/dL (8.7-10.3); Carbon Dioxide 29.5 mmol/L (21.6-31.8); Chloride 101 mmol/L (96-109); Glucose 186 mg/dL (70-110); Magnesium 1.9 mg/dL (1.5-2.4); Sodium 142 mmol/L (135-145)
[2023-09-09 11:37] LABS: Glucose,Whole Blood 181 mg/dL (70-110)
[2023-09-09 12:33] VITALS: BP 146/80; RESP 19; TEMP 98.1
[2023-09-09 15:34] VITALS: BMI 36.6
--- NOTE | 2023-09-09 15:35 | P.DS ---
Providers Date of admission: 09/07/23 19:09 Expected date of discharge: 09/09/23 Attending physician: Doug Smith MD Primary care physician: Stu Ring MD Hospital Course: 82-year-old female with a PMH of diastolic CHF, COPD with chronic hypoxic respiratory failure on 3 L nasal cannula oxygen continuously at home, A. fib on Eliquis, type II DM, hypertension, hyperlipidemia, hypothyroidism, chronic kidney disease resident of an assisted living facility who presents to the emergency room with complaints of shortness of breath. In the emergency room, the patient's SpO2 was 96% on 3 L nasal cannula oxygen. Chest x-ray was consist ent with CHF. EKG revealed A. fib at 88 bpm. Laboratory evaluation revealed a troponin less than 0.012, leukocytosis 12.2, proBNP 2840 (down from prior hospitalization of 3780), BUN 42, creatinine 2.44 (previously 2.0 during prior hospitalization). Cardiology was consulted and transitioned her to oral lasix. Cardiology cleared the patient for discharge. Patient was seen and examined. All questions answered. Looking forward to going home. Pertinent studies include chest x-ray. Increase Lasix to 60 mg by mouth daily. Follow-up with cardiology and nephrology within 1 week of discharge. General: non toxic, no distress, appears at stated age, normal weight Derm: no unusual rashes/lesions, warm Head: atraumatic, normocephalic, symmetric Eyes: EOMI, no lid lag, anicteric sclera ENT: Nose and ears atraumatic Neck: No cervical lymphadenopathy, trachea midline, supple Cardiovascular: Good distal perfusion all 4 extremities Lungs: Breathing comfortably, no accessory muscle use Ext: muscle strength 4 out of 5 in all 4 extremities grossly, no gross muscle atrophy, no contractures, Neuro: no gross focal neuro deficits Psych: Alert, oriented, appropriate affect Discharge diagnosis: Mild diastolic CHF exacerbation DEANDRE on chronic kidney disease, possibly cardiorenal Leukocytosis, likely due to acute stressor, no signs of active infection at this time Type 2 diabetes This complex discharge took 35 minutes to complete Patient Condition at Discharge: Stable Plan - Discharge Summary Discharge Rx Participant: No New Discharge Prescriptions: New Furosemide [Lasix] 60 mg PO DAILY #90 tab Continue Atorvastatin [Lipitor] 20 mg PO HS Montelukast [Singulair] 10 mg PO HS Vit C/E/Zn/Coppr/Lutein/Zeaxan [Preservision Areds 2 Softgel] 1 cap PO BID Latanoprost Ophth [Xalatan 0.005%] 1 drop BOTH EYES HS Roflumilast [Daliresp] 500 mcg PO DAILY Insulin Lispro [humaLOG Kwikpen] See Protocol SQ AC-TID Cyanocobalamin (Vitamin B-12) [Vitamin B-12] 1,000 mcg PO DAILY Ergocalciferol (Vitamin D2) [Drisdol (50,000 Iu)] 1,250 mcg PO WE Benzonatate [Tessalon Perle] 200 mg PO TID PRN PRN Reason: Cough Famotidine [Pepcid] 20 mg PO DAILY Insulin Glargine,Hum.rec.anlog [Lantus Solostar Pen] 20 units SQ HS Loperamide HCl [Imodium A-D] 2 mg PO Q6H PRN PRN Reason: Diarrhea Melatonin 5 mg PO HS Metoprolol Tartrate [Lopressor] 75 mg PO TID Nystatin 100,000Unit/gm Cream [Mycostatin Cream] 1 applic TOPICAL BID Sennosides/Docusate Sodium [Senna-S 8.6-50 mg Tablet] 1 tab PO BID Apixaban [Eliquis] 2.5 mg PO BID #60 tab Acetaminophen Tab [Tylenol] 650 mg PO Q4H PRN PRN Reason: Pain hydrALAZINE HCL [Apresoline] 25 mg PO TID PRN PRN Reason: SBP>140 hydrOXYzine HCL [Atarax] 50 mg PO DAILY PRN PRN Reason: Severe Anxiety Olopatadine HCl [Patanol 0.1%] 1 drop BOTH EYES BID Sertraline [Zoloft] 25 mg PO DAILY Sertraline HCl [Zoloft] 50 mg PO DAILY Ipratropium-Albuterol Nebulize [Duoneb 0.5 mg-3 mg/3 ml Soln] 3 ml INHALATION RT-QID Albuterol Sulfate [Albuterol Sulfate Hfa] 2 puff INHALATION RT-Q6H PRN PRN Reason: Shortness Of Breath amLODIPine [Norvasc] 2.5 mg PO DAILY Ammonium Lactate Lotion [Lac-Hydrin 12% Lotion] 1 applic TOPICAL HS Levothyroxine Sodium [Synthroid] 100 mcg PO AC-BRKFST Dapagliflozin Propanediol [Farxiga] 10 mg PO DAILY #30 tab Fluticasone Nasal [place] [Flonase Nasal [place]] 1 spr EA NOSTRIL DAILY Discontinued Furosemide [Lasix] 40 mg PO DAILY #60 tab Discharge Medication List Atorvastatin [Lipitor] 20 mg PO HS 07/15/14 [History] Latanoprost Ophth [[place] 0.005%] 1 drop BOTH EYES HS 01/28/21 [History] Montelukast [Singulair] 10 mg PO HS 01/28/21 [History] Roflumilast [Daliresp] 500 mcg PO DAILY 01/28/21 [History] Vit C/E/Zn/Coppr/Lutein/Zeaxan [Preservision Areds 2 Softgel] 1 cap PO BID 01/28/21 [History] Ipratropium-Albuterol Nebulize [Duoneb 0.5 mg-3 mg/3 ml Soln] 3 ml INHALATION RT-QID 09/03/21 [History] Insulin Lispro [humaLOG Kwikpen] See Protocol SQ AC-TID 07/23/22 [History] Cyanocobalamin (Vitamin B-12) [Vitamin B-12] 1,000 mcg PO DAILY 12/10/22 [History] Ergocalciferol (Vitamin D2) [Drisdol (50,000 Iu)] 1,250 mcg PO WE 12/10/22 [History] Albuterol Sulfate [Albuterol Sulfate Hfa] 2 puff INHALATION RT-Q6H PRN 06/06/23 [History] Ammonium Lactate Lotion [Lac-Hydrin 12% Lotion] 1 applic TOPICAL HS 06/06/23 [History] Benzonatate [Tessalon Perle] 200 mg PO TID PRN 06/06/23 [History] Famotidine [Pepcid] 20 mg PO DAILY 06/06/23 [History] Insulin Glargine,Hum.rec.anlog [Lantus Solostar Pen] 20 units SQ HS 06/06/23 [History] Levothyroxine Sodium [Synthroid] 100 mcg PO AC-BRKFST 06/06/23 [History] Loperamide HCl [Imodium A-D] 2 mg PO Q6H PRN 06/06/23 [History] Melatonin 5 mg PO HS 06/06/23 [History] Metoprolol Tartrate [Lopressor] 75 mg PO TID 06/06/23 [History] Nystatin 100,000Unit/gm Cream [Mycostatin Cream] 1 applic TOPICAL BID 06/06/23 [History] Sennosides/Docusate Sodium [Senna-S 8.6-50 mg Tablet] 1 tab PO BID 06/06/23 [History] amLODIPine [Norvasc] 2.5 mg PO DAILY 06/06/23 [History] Apixaban [Eliquis] 2.5 mg PO BID #60 tab 06/10/23 [Rx] Dapagliflozin Propanediol [Farxiga] 10 mg PO DAILY #30 tab 06/10/23 [Rx] Acetaminophen Tab [Tylenol] 650 mg PO Q4H PRN 08/29/23 [History] Fluticasone Nasal [place] [Flonase Nasal [place]] 1 spr EA NOSTRIL DAILY 08/29/23 [History] Olopatadine HCl [Patanol 0.1%] 1 drop BOTH EYES BID 08/29/23 [History] Sertraline HCl [Zoloft] 50 mg PO DAILY 08/29/23 [History] Sertraline [Zoloft] 25 mg PO DAILY 08/29/23 [History] hydrALAZINE HCL [Apresoline] 25 mg PO TID PRN 08/29/23 [History] hydrOXYzine HCL [Atarax] 50 mg PO DAILY PRN 08/29/23 [History] Furosemide [Lasix] 60 mg PO DAILY #90 tab 09/09/23 [Rx] Follow up Appointment(s)/Referral(s): Annemarie Patel MD [STAFF PHYSICIAN] - 09/21/23 1:00 pm Marcelino Santiago MD [STAFF PHYSICIAN] - 09/27/23 11:15 am Stu Ring MD [Primary Care Provider] - 09/15/23 8:30 am Activity/Diet/Wound Care/Special Instructions: Set up wheelchair van for transport home to [facility] at [address] [place] [address], [place], [place]: [phone]. The hospital will pay for it. Discharge Disposition: HOME SELF-CARE
== END 2023-09-09 16:11 | DRG 291 ==
LOC: EC 14:21 → 4SSUR 19:09
PROVIDERS: ADMIT Student in an Organized Health Care Education/Training Program; ATTEND Student in an Organized Health Care Education/Training Program
DX: I13.0 Hypertensive heart and chronic kidney disease with heart failure and stage 1 through stage 4 chronic kidney disease, or unspecified chronic kidney disease (principal); I50.33 Acute on chronic diastolic (congestive) heart failure; N17.9 Acute kidney failure, unspecified; J96.11 Chronic respiratory failure with hypoxia; I48.19 Other persistent atrial fibrillation; E11.41 Type 2 diabetes mellitus with diabetic mononeuropathy; I27.20 Pulmonary hypertension, unspecified; G57.93 Unspecified mononeuropathy of bilateral lower limbs; E03.9 Hypothyroidism, unspecified; E11.22 Type 2 diabetes mellitus with diabetic chronic kidney disease; J44.9 Chronic obstructive pulmonary disease, unspecified; N18.30 Chronic kidney disease, stage 3 unspecified; Z79.4 Long term (current) use of insulin; E66.01 Morbid (severe) obesity due to excess calories; Z68.36 Body mass index [BMI] 36.0-36.9, adult; G47.33 Obstructive sleep apnea (adult) (pediatric); E78.5 Hyperlipidemia, unspecified; H35.30 Unspecified macular degeneration; G89.29 Other chronic pain; K58.9 Irritable bowel syndrome, unspecified; M19.90 Unspecified osteoarthritis, unspecified site; M48.00 Spinal stenosis, site unspecified; F32.A Depression, unspecified; F41.9 Anxiety disorder, unspecified; H54.7 Unspecified visual loss; I87.8 Other specified disorders of veins; Z99.81 Dependence on supplemental oxygen; Z79.01 Long term (current) use of anticoagulants; Z79.84 Long term (current) use of oral hypoglycemic drugs; Z79.890 Hormone replacement therapy; Z79.899 Other long term (current) drug therapy; Z87.442 Personal history of urinary calculi; Z87.891 Personal history of nicotine dependence; Z86.14 Personal history of Methicillin resistant Staphylococcus aureus infection; Z86.19 Personal history of other infectious and parasitic diseases; Z71.3 Dietary counseling and surveillance; Z88.6 Allergy status to analgesic agent
CPT/HCPCS: 36415; 71046; 80048; 80053; 83605; 83735; 83880; 84484; 85025; 85027; 85610; 85730; 93005; 94640; 94760; 96374; 96376; 99285

== ENCOUNTER → 2023-10-15 | Outpatient (CLI) | payer MEDICARE, BC ==
[2023-10-15 20:59] LABS: BUN/Creat Ratio 17.54 Ratio (12.00-20.00); Blood Urea Nitrogen 45.6 mg/dL (9.0-27.0); Chloride 100 mmol/L (96-109); Glucose 136 mg/dL (70-110); Magnesium 2.1 mg/dL (1.5-2.4); Potassium 4.7 mmol/L (3.5-5.5); Sodium 138 mmol/L (135-145)
== END | disposition home or self-care (01) ==
LOC: LABWHC1 15:01
PROVIDERS: ATTEND Internal Medicine
DX: N18.32 Chronic kidney disease, stage 3b (principal)
CPT/HCPCS: 36415; 80048; 83735; 84100

== ENCOUNTER 2023-11-11 11:25 | Emergency (ER) | payer MEDICARE, BC ==
--- NOTE | 2023-11-11 11:54 | ED ---
Back Pain HPI - General Chief Complaint: Back Pain/Injury Stated Complaint: back pain Source: patient Limitations: no limitations - History of Present Illness Initial Comments: Patient's an 83-year-old female presents emergency room with complaints of lower back pain. Patient states it is so severe that is causing her to feel nauseous this morning. Denies any falls or injuries. Patient has a history of stage IV kidney disease. She has frequent urination which is normal for her. Patient has a fevers. She denies any upper back pain, chest pain, shortness breath. Patient denies any dysuria or hematuria. Patient states the pain is worse in the right SI joint. When it started a week ago it was only with positional changes, standing up however it would improve when she would get up to walk a round. She states that no it is a consistent pain. Gent denies any loss of bowel or bladder control. She denies any weakness, saddle anesthesia, IV drug use. - Related Data Home Medications Medication Instructions Recorded Confirmed Atorvastatin [Lipitor] 20 mg PO HS 07/15/14 09/07/23 Latanoprost Ophth [Xalatan 0.005%] 1 drop BOTH EYES HS 01/28/21 09/07/23 Montelukast [Singulair] 10 mg PO HS 01/28/21 09/07/23 Roflumilast [Daliresp] 500 mcg PO DAILY 01/28/21 09/07/23 Vit C/E/Zn/Coppr/Lutein/Zeaxan 1 cap PO BID 01/28/21 09/07/23 [Preservision Areds 2 Softgel] Ipratropium-Albuterol Nebulize 3 ml INHALATION RT-QID 09/03/21 09/07/23 [Duoneb 0.5 mg-3 mg/3 ml Soln] Insulin Lispro [humaLOG Kwikpen] See Protocol SQ AC-TID 07/23/22 09/07/23 Cyanocobalamin (Vitamin B-12) 1,000 mcg PO DAILY 12/10/22 09/07/23 [Vitamin B-12] Ergocalciferol (Vitamin D2) 1,250 mcg PO WE 12/10/22 09/07/23 [Drisdol (50,000 Iu)] Albuterol Sulfate [Albuterol 2 puff INHALATION RT-Q6H PRN 06/06/23 09/07/23 Sulfate Hfa] Ammonium Lactate Lotion 1 applic TOPICAL HS 06/06/23 09/07/23 [Lac-Hydrin 12% Lotion] Benzonatate [Tessalon Perle] 200 mg PO TID PRN 06/06/23 09/07/23 Famotidine [Pepcid] 20 mg PO DAILY 06/06/23 09/07/23 Insulin Glargine,Hum.rec.anlog 20 units SQ HS 06/06/23 09/07/23 [Lantus Solostar Pen] Levothyroxine Sodium [Synthroid] 100 mcg PO AC-BRKFST 06/06/23 09/07/23 Loperamide HCl [Imodium A-D] 2 mg PO Q6H PRN 06/06/23 09/07/23 Melatonin 5 mg PO HS 06/06/23 09/07/23 Metoprolol Tartrate [Lopressor] 75 mg PO TID 06/06/23 09/07/23 Nystatin 100,000Unit/gm Cream 1 applic TOPICAL BID 06/06/23 09/07/23 [Mycostatin Cream] Sennosides/Docusate Sodium 1 tab PO BID 06/06/23 09/07/23 [Senna-S 8.6-50 mg Tablet] amLODIPine [Norvasc] 2.5 mg PO DAILY 06/06/23 09/07/23 Acetaminophen Tab [Tylenol] 650 mg PO Q4H PRN 08/29/23 09/07/23 Fluticasone Nasal [place] [Flonase 1 spr EA NOSTRIL DAILY 08/29/23 09/07/23 Nasal [place]] Olopatadine HCl [Patanol 0.1%] 1 drop BOTH EYES BID 08/29/23 09/07/23 Sertraline HCl [Zoloft] 50 mg PO DAILY 08/29/23 09/07/23 Sertraline [Zoloft] 25 mg PO DAILY 08/29/23 08/29/23 hydrALAZINE HCL [Apresoline] 25 mg PO TID PRN 08/29/23 09/07/23 hydrOXYzine HCL [Atarax] 50 mg PO DAILY PRN 08/29/23 09/07/23 Previous Rx's Medication Instructions Recorded Apixaban [Eliquis] 2.5 mg PO BID #60 tab 06/10/23 Dapagliflozin Propanediol [Farxiga] 10 mg PO DAILY #30 tab 06/10/23 Furosemide [Lasix] 60 mg PO DAILY #90 tab 09/09/23 Cephalexin [Keflex] 500 mg PO Q6HR #40 cap 11/11/23 HYDROcodone/APAP 5-325MG [[place] 5] 1 each PO Q6HR PRN 3 Days #12 tab 11/11/23 Lidocaine 5% Patch [Lidoderm] 1 patch TOPICAL DAILY 14 Days #14 11/11/23 patch Ondansetron Odt [Zofran Odt] 4 mg PO Q8HR PRN #10 tab 11/11/23 Allergies Allergy/AdvReac Type Severity Reaction Status Date / Time diclofenac sodium Allergy pt states Verified 11/11/23 11:48 [From Voltaren] kidney failure adhesive tape AdvReac Rash/Hives Verified 11/11/23 11:48 Review of Systems ROS Statement: Those systems with pertinent positive or pertinent negative responses have been documented in the HPI. ROS Other: All systems not noted in ROS Statement are negative. Past Medical History Past Medical History: Atrial Fibrillation, Cancer, Heart Failure, COPD, Diabetes Mellitus, Eye Disorder, Hyperlipidemia, Hypertension, Osteoarthritis (OA), Pneumonia, Renal Disease, Seizure Disorder, Sleep Apnea/CPAP/BIPAP Additional Past Medical History / Comment(s): IDDM type II, neuropathy bilateral feet, past hematuria, CKD stage III, nephrolithiasis, chronic respiratory failure/home oxygen 3L/[place] ATC, bronchitis, R breast cancer x2 with lumpectomies/radiation, RACHEL/cpap used, spinal stenosis/chronic back pain, IBS, seizure x2 as a teen and one in 2009, bilateral macular degeneration/very poor vision, current wound R lower leg/skin tear and is seen at [facility]/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 Past Anesthesia/Blood Transfusion Reactions: No Reported Reaction, Motion Sickness Past Psychological History: Anxiety, Depression Smoking Status: Former smoker Past Alcohol Use History: None Reported Past Drug Use History: None Reported - Past Family History Mother Additional Family Medical History / Comment(s): breast cancer Father Family Medical History: Cancer Additional Family Medical History / Comment(s): Prostate cancer. General Exam - General Exam Comments Initial Comments: Visual Physical Exam Vital signs reviewed General: Well-appearing, nontoxic, no acute distress. Head: Normocephalic, atraumatic Eyes: PERRLA, EOMI ENT: Airway patent Chest: Nonlabored breathing Skin: No visual rash, normal skin tone Neuro: Alert and oriented 3 Musculoskeletal: No gross abnormalities Limitations: no limitations General appearance: alert, in no apparent distress Head exam: Present: atraumatic Eye exam: Present: normal appearance ENT exam: Present: normal exam Neck exam: Present: full ROM Respiratory exam: Present: normal lung sounds bilaterally, respiratory distress Back exam: Present: normal inspection, other ([place] palpation over the right SI joint, no specific vertebral point tenderness EHL intact bilaterally. Negative straight leg test bilaterally. Able to ambulate with a steady gait.) Neurological exam: Present: alert, oriented X3, CN II-XII intact Psychiatric exam: Present: normal affect, normal mood Skin exam: Present: warm, dry. Absent: rash Course Vital Signs 11/11/23 11/11/23 11:42 15:05 Temperature 97.5 F L 97.9 F Pulse Rate 77 83 Respiratory 18 16 Rate Blood Pressure 134/74 134/77 O2 Sat by Pulse 98 95 Oximetry - Reevaluation(s) Reevaluation #1: 11/11/23 14:34 Patient was given [place] Zofran emergency room. Continued to have back pain so was given any tizanidine and Lidoderm. Unable to give NSAIDs including Toradol due to the chronic kidney disease. I discussed imaging results with patient and daughter bedside. I discussed the treatment at the anicteric infection as well as degenerative disc disease seen on the lumbar spine x-ray. Again patient is neurologically intact. She denies any saddle anesthesia or loss of bowel or bladder control therefore no MRI was ordered at today's visit. Medical Decision Making - Medical Decision Making Quick note portion completed by myself, electronically signed ISMAEL Amlanza. Was pt. sent in by a medical professional or institution (RASHEL George, VETERANS SERVICE REPRESENTATIVE, urgent care, hospital, or correction...) When possible be specific @ -[No] Did you speak to anyone other than the patient for history (EMS, parent, family, police, friend...)? What history was obtained from this source @ -Family at bedside Did you review nursing and triage notes (agree or disagree)? Why? @ -[I reviewed and agree with nursing and triage notes] Were old charts reviewed (outside hosp., previous admission, EMS record, old EKG, old radiological studies, urgent care reports/EKG's, correction records)? Report findings @ -[No old charts were reviewed] Differential Diagnosis (chest pain, altered mental status, abdominal pain women, abdominal pain men, vaginal bleeding, weakness, fever, dyspnea, syncope, headache, dizziness, GI bleed, back pain, seizure, CVA, palpatations, mental health, musculoskeletal)? @ -Back pain, back strain, UTI, sciatica, SI dysfunction EKG interpreted by me (3pts min.). @ -[As above] X-rays interpreted by me (1pt min.). @ -X-rays of the lumbar spine show multilevel degenerative changes are comparable with previous imaging studies. No acute fracture seen. CT interpreted by me (1pt min.). @ -[None done] U/S interpreted by me (1pt. min.). @ -[None done] What testing was considered but not performed or refused? (CT, X-rays, U/S, labs)? Why? @ -[None] What meds were considered but not given or refused? Why? @ -Stronger narcotic pain medications, stronger than [place] area patient is on oxygen and was recently taken off of her chronic pain medications and anxiety medications. I will not write for anything stronger and patient will need to follow-up with PCP to have anything further prescribed after the initial 3 days. Did you discuss the management of the patient with other professionals (professionals i.e. RASHEL George, VETERANS SERVICE REPRESENTATIVE, lab, RT, psych nurse, healthcare social worker, child support investigator, teacher, examining officer, manager rn case)? Give summary @ -[No] Was smoking cessation discussed for >3mins.? @ -[No] Was critical care preformed (if so, how long)? @ -[No] Were there social determinants of health that impacted care today? How? (Homelessness, low income, unemployed, alcoholism, drug addiction, transportation, low edu. Level, literacy, decrease access to med. care, half-way, rehab)? @ -[No] Was there de-escalation of care discussed even if they declined (Discuss DNR or withdrawal of care, Hospice)? DNR status @ -[No] What co-morbidities impacted this encounter? (DM, HTN, Smoking, COPD, CAD, Cancer, CVA, ARF, Chemo, Hep., AIDS, mental health diagnosis, sleep apnea, m orbid obesity)? @ -Age, chronic COPD Was patient admitted / discharged? Hospital course, mention meds given and route, prescriptions, significant lab abnormalities, going to OR and other pertinent info. @ -Patient is neurologically intact. EHL intact bilaterally. She denies any saddle anesthesia or loss of bowel or bladder control therefore no MRI was ordered at today's visit and patient does not require hospitalization at this time. I discussed imaging results which were consistent with the sciatic and SI pain. Discussed treatment plan including the Lidoderm patches and [place]. She was given stretches to help with the sciatica as well. Discussed with the follow-up and follow-up with PCP. Discussed signs return to the emergency room. The patient understands and agrees to treatment discharge plan. Her symptoms are And is charged plan were discussed with attending ED physician Dr. Guaman today. Undiagnosed new problem with uncertain prognosis? @ -[No] Drug Therapy requiring intensive monitoring for toxicity (Heparin, Nitro, Insulin, Cardizem)? @ -[No] Were any procedures done? @ -[No] Diagnosis/symptom? @ -Back pain, UTI, sciatica Acute, or Chronic, or Acute on Chronic? @ -Acute Uncomplicated (without systemic symptoms) or Complicated (systemic symptoms)? @ -[default] Side effects of treatment? @ -[No] Exacerbation, Progression, or Severe Exacerbation? @ -[No] Poses a threat to life or bodily function? How? (Chest pain, [place], [place], pneumonia, PE, COPD, DKA, ARF, appy, cholecystitis, CVA, Diverticulitis, Homicidal, Suicidal, threat to staff... and all critical care pts) @ -[No] - Lab Data Result diagrams: 11/11/23 12:02 11/11/23 12: Lab Results 11/11/23 11/11/23 11/11/23 Range/Units 12:02 12: 12:02 WBC 10.3 (3.8-10.6) k/uL RBC 4.49 (3.80-5.40) m/uL Hgb 12.6 (11.4-16.0) gm/dL Hct 40.1 (34.0-46.0) % MCV 89.3 D (80.0-100.0) fL MCH 28.0 (25.0-35.0) pg MCHC 31.4 (31.0-37.0) g/dL RDW 18.4 H (11.5-15.5) % Plt Count 187 (150-450) k/uL MPV 8.2 Neutrophils % 70 % Lymphocytes % 15 % Monocytes % 6 % Eosinophils % 6 % Basophils % 1 % Neutrophils # 7.1 (1.3-7.7) k/uL Lymphocytes # 1.5 (1.0-4.8) k/uL Monocytes # 0.6 (0-1.0) k/uL Eosinophils # 0.6 (0-0.7) k/uL Basophils # 0.1 (0-0.2) k/uL Hypochromasia Moderate Anisocytosis Slight Sodium 142 (137-145) mmol/L Potassium 3.8 (3.5-5.1) mmol/L Chloride 104 (98-107) mmol/L Carbon Dioxide 25 (22-30) mmol/L Anion Gap 13 mmol/L BUN 52 H (7-17) mg/dL Creatinine 2.58 H (0.52-1.04) mg/dL Est GFR (CKD-EPI)AfAm 19 (>60 ml/min/1.73 sqM) Est GFR (CKD-EPI)NonAf 17 (>60 ml/min/1.73 sqM) Glucose 145 H (74-99) mg/dL Calcium 9.0 (8.4-10.2) mg/dL Total Bilirubin 0.8 (0.2-1.3) mg/dL AST 63 H (14-36) U/L ALT 25 (4-34) U/L Alkaline Phosphatase 349 H (38-126) U/L Total Protein 7.4 (6.3-8.2) g/dL Albumin 3.5 (3.5-5.0) g/dL Urine Color Light Yellow Urine Appearance Cloudy H (Clear) Urine pH 5.0 (5.0-8.0) Ur Specific [place] 1.015 (1.001-1.035) Urine Protein 1+ H (Negative) Urine Glucose (UA) Trace H (Negative) Urine Ketones Negative (Negative) Urine Blood Trace H (Negative) Urine Nitrite Positive H (Negative) Urine Bilirubin Negative (Negative) Urine Urobilinogen 0.2 (<2.0) mg/dL Ur Leukocyte Esterase Large H (Negative) Urine WBC >182 H (0-5) /hpf Urine WBC Clumps Many H (None) /hpf Urine Bacteria Many H (None) /hpf Hyaline Casts 8 H (0-2) /lpf Urine Mucus Rare H (None) /hpf - Radiology Data Radiology results: report reviewed, image reviewed Disposition Clinical Impression: Back pain, Sciatica, UTI (urinary tract infection) Disposition: HOME SELF-CARE Condition: Good Instructions (If sedation given, give patient instructions): Urinary Tract Infection in Women (ED), Sciatica (ED), Acute Low Back Pain (ED), Lumbar Radiculopathy (ED) Prescriptions: Cephalexin [Keflex] 500 mg PO Q6HR #40 cap Lidocaine 5% Patch [Lidoderm] 1 patch TOPICAL DAILY 14 Days #14 patch HYDROcodone/APAP 5-325MG [[place] 5] 1 each PO Q6HR PRN 3 Days #12 tab PRN Reason: Pain Ondansetron Odt [Zofran Odt] 4 mg PO Q8HR PRN #10 tab PRN Reason: Nausea Is patient prescribed a controlled substance at d/c from ED?: Yes When asked, does pt state using other controlled substances?: No If prescribed controlled substance>3 days was MAPS reviewed?: Prescribed <3 Days If opioid is for acute pain is fill amount 7 days or less?: No Referrals: Stu Ring MD [Primary Care Provider] - 1-2 days Les Ruibo MD [Medical Doctor] - 1-2 days Jack Nelson DO [Doctor of Osteopathic Medicine] - 1-2 days Time of Disposition: 14:35
[2023-11-11 12:22] LABS: Anisocytosis Slight; Basophils # (A) 0.1 k/uL (0-0.2); Basophils % (A) 1 %; Eosinophils # (A) 0.6 k/uL (0-0.7); Eosinophils % (A) 6 %; HCT 40.1 % (34.0-46.0); HGB 12.6 gm/dL (11.4-16.0); Hypochromasia Moderate; Lymphocytes # (A) 1.5 k/uL (1.0-4.8); Lymphocytes % (A) 15 %; MCHC 31.4 g/dL (31.0-37.0); Mean Platelet Volume 8.2; Monocytes # (A) 0.6 k/uL (0-1.0); Monocytes % (A) 6 %; Neutrophils # (A) 7.1 k/uL (1.3-7.7); Neutrophils % (A) 70 %; Platelet Count 187 k/uL (150-450); RBC 4.49 m/uL (3.80-5.40); RDW 18.4 % (11.5-15.5); WBC 10.3 k/uL (3.8-10.6)
[2023-11-11 12:28] LABS: MCV 89.3 fL (80.0-100.0)
[2023-11-11] MEDS ORDERED: ONDANSETRON ODT 4 MG TAB PO STA (12:31)
[2023-11-11] MEDS ORDERED: HYDROcodone/APAP 5-325MG 1 EACH TAB PO STA (12:31)
[2023-11-11 12:47] LABS: Appearance,Urine Cloudy (Clear); Bilirubin,Urine Negative (Negative); Blood,Urine Trace (Negative); Color,Urine Light Yellow; Glucose,Urine (UA) Trace (Negative); Ketones,Urine Negative (Negative); Leukocyte Esterase,Urine Large (Negative); Nitrite,Urine Positive (Negative); Protein,Urine 1+ (Negative); Specific Gravity,Urine 1.015 (1.001-1.035); Urobilinogen,Urine 0.2 mg/dL (<2.0)
[2023-11-11 12:50] LABS: Bacteria,Urine Many /hpf; Hyaline Casts,Urine 8 /lpf (0-2); Mucus,Urine Rare /hpf; WBC,Urine >182 /hpf (0-5)
--- NOTE | 2023-11-11 12:53 | XR ---
EXAM TYPE: LUMBAR SPINE X RAY SERIES COMPARISON: 10/04/2020 HISTORY: Pain TECHNIQUE: 4 views are submitted. FINDINGS: Alignment is anatomic. The pedicles are intact. The transverse processes are intact. There is diff use osteopenia multilevel degenerative disc disease with facet arthropathy. Grade 1 anterolisthesis L 4-5 and L5-S1. Findings suspicious for spondylolysis of L5. Surgical clips in the gallbladder fossa. Mild SI joint arthropathy. Atherosclerotic change aorta. IMPRESSION: 1. Diffuse osteopenia with multilevel facet arthropathy degenerative disc disease. One anterolisthesi s of L4-5 and L5-S1 similar to prior exam. Suspect multilevel foraminal protrusion most marked at L5- S1
[2023-11-11 13:03] LABS: ALT 25 U/L (4-34); AST 63 U/L (14-36); African American GFR (CKD) 19 (>60 ml/min/1.73 sqM); Albumin 3.5 g/dL (3.5-5.0); Alkaline Phosphatase 349 U/L (38-126); Anion Gap 13 mmol/L; Blood Urea Nitrogen 52 mg/dL (7-17); Carbon Dioxide 25 mmol/L (22-30); Chloride 104 mmol/L (98-107); Glucose 145 mg/dL (74-99); Non-African American GFR(CKD) 17 (>60 ml/min/1.73 sqM); Potassium 3.8 mmol/L (3.5-5.1); Sodium 142 mmol/L (137-145); Total Bilirubin 0.8 mg/dL (0.2-1.3); Total Protein 7.4 g/dL (6.3-8.2)
[2023-11-11] MEDS ORDERED: tiZANidine 4 MG TAB PO STA (14:30)
[2023-11-11 15:11] VITALS: BP 134/77; PULSE 83; RESP 16; TEMP 97.9
== END 2023-11-11 15:29 | disposition home or self-care (01) ==
LOC: EC 11:25
DX: M54.30 Sciatica, unspecified side (principal); N39.0 Urinary tract infection, site not specified; I48.91 Unspecified atrial fibrillation; E11.9 Type 2 diabetes mellitus without complications; E78.5 Hyperlipidemia, unspecified; M19.90 Unspecified osteoarthritis, unspecified site; I11.0 Hypertensive heart disease with heart failure; I50.9 Heart failure, unspecified; F41.9 Anxiety disorder, unspecified; F32.A Depression, unspecified; Z87.891 Personal history of nicotine dependence; Z88.8 Allergy status to other drugs, medicaments and biological substances; Z79.51 Long term (current) use of inhaled steroids; Z79.4 Long term (current) use of insulin; Z79.899 Other long term (current) drug therapy
CPT/HCPCS: 36415; 80053; 85025; 81001; 72100; 99284; 96365; 96366; J0696

== ENCOUNTER 2024-02-16 16:36 | Inpatient (IN) | payer MEDICARE, BC ==
--- NOTE | 2024-02-16 17:15 | ED ---
General Adult HPI - General Chief complaint: Shortness of Breath Stated complaint: ENDY Time Seen by Provider: 02/16/24 16:44 Source: patient, RN notes reviewed Mode of arrival: wheelchair Limitations: no limitations - History of Present Illness Initial comments: Patient is a pleasant 83-year-old female presenting to the emergency department with difficulty breathing. Patient does have some chronic dyspnea related to COPD which is somewhat similar. This is worsened over the past few days. Patient does have some mild leg swelling. No leg pain. No fevers. Patient does have occasional cough. - Related Data Home Medications Medication Instructions Recorded Confirmed Atorvastatin [Lipitor] 20 mg PO HS 07/15/14 09/07/23 Latanoprost Ophth [Xalatan 0.005%] 1 drop BOTH EYES HS 01/28/21 09/07/23 Montelukast [Singulair] 10 mg PO HS 01/28/21 09/07/23 Roflumilast [Daliresp] 500 mcg PO DAILY 01/28/21 09/07/23 Vit C/E/Zn/Coppr/Lutein/Zeaxan 1 cap PO BID 01/28/21 09/07/23 [Preservision Areds 2 Softgel] Ipratropium-Albuterol Nebulize 3 ml INHALATION RT-QID 09/03/21 09/07/23 [Duoneb 0.5 mg-3 mg/3 ml Soln] Insulin Lispro [humaLOG Kwikpen] See Protocol SQ AC-TID 07/23/22 09/07/23 Cyanocobalamin (Vitamin B-12) 1,000 mcg PO DAILY 12/10/22 09/07/23 [Vitamin B-12] Ergocalciferol (Vitamin D2) 1,250 mcg PO WE 12/10/22 09/07/23 [Drisdol (50,000 Iu)] Albuterol Sulfate [Albuterol 2 puff INHALATION RT-Q6H PRN 06/06/23 09/07/23 Sulfate Hfa] Ammonium Lactate Lotion 1 applic TOPICAL HS 06/06/23 09/07/23 [Lac-Hydrin 12% Lotion] Benzonatate [Tessalon Perle] 200 mg PO TID PRN 06/06/23 09/07/23 Famotidine [Pepcid] 20 mg PO DAILY 06/06/23 09/07/23 Insulin Glargine,Hum.rec.anlog 20 units SQ HS 06/06/23 09/07/23 [Lantus Solostar Pen] Levothyroxine Sodium [Synthroid] 100 mcg PO AC-BRKFST 06/06/23 09/07/23 Loperamide HCl [Imodium A-D] 2 mg PO Q6H PRN 06/06/23 09/07/23 Melatonin 5 mg PO HS 06/06/23 09/07/23 Metoprolol Tartrate [Lopressor] 75 mg PO TID 06/06/23 09/07/23 Nystatin 100,000Unit/gm Cream 1 applic TOPICAL BID 06/06/23 09/07/23 [Mycostatin Cream] Sennosides/Docusate Sodium 1 tab PO BID 06/06/23 09/07/23 [Senna-S 8.6-50 mg Tablet] amLODIPine [Norvasc] 2.5 mg PO DAILY 06/06/23 09/07/23 Acetaminophen Tab [Tylenol] 650 mg PO Q4H PRN 08/29/23 09/07/23 Fluticasone Nasal [place] [Flonase 1 spr EA NOSTRIL DAILY 08/29/23 09/07/23 Nasal [place]] Olopatadine HCl [Patanol 0.1%] 1 drop BOTH EYES BID 08/29/23 09/07/23 Sertraline HCl [Zoloft] 50 mg PO DAILY 08/29/23 09/07/23 Sertraline [Zoloft] 25 mg PO DAILY 08/29/23 08/29/23 hydrALAZINE HCL [Apresoline] 25 mg PO TID PRN 08/29/23 09/07/23 hydrOXYzine HCL [Atarax] 50 mg PO DAILY PRN 08/29/23 09/07/23 Previous Rx's Medication Instructions Recorded Apixaban [Eliquis] 2.5 mg PO BID #60 tab 06/10/23 Dapagliflozin Propanediol [Farxiga] 10 mg PO DAILY #30 tab 06/10/23 Furosemide [Lasix] 60 mg PO DAILY #90 tab 09/09/23 Cephalexin [Keflex] 500 mg PO Q6HR #40 cap 11/11/23 HYDROcodone/APAP 5-325MG [[place] 5] 1 each PO Q6HR PRN 3 Days #12 tab 11/11/23 Lidocaine 5% Patch [Lidoderm] 1 patch TOPICAL DAILY 14 Days #14 11/11/23 patch Ondansetron Odt [Zofran Odt] 4 mg PO Q8HR PRN #10 tab 11/11/23 Allergies Allergy/AdvReac Type Severity Reaction Status Date / Time diclofenac sodium Allergy pt states Verified 02/16/24 16:40 [From Voltaren] kidney failure adhesive tape AdvReac Rash/Hives Verified 02/16/24 16:40 Review of Systems ROS Statement: Those systems with pertinent positive or pertinent negative responses have been documented in the HPI. ROS Other: All systems not noted in ROS Statement are negative. Constitutional: Denies: fever Eyes: Denies: eye pain ENT: Denies: ear pain Respiratory: Reports: cough, dyspnea Cardiovascular: Denies: chest pain Endocrine: Reports: fatigue Gastrointestinal: Denies: abdominal pain Musculoskeletal: Denies: back pain Past Medical History Past Medical History: Atrial Fibrillation, Cancer, Heart Failure, COPD, Diabetes Mellitus, Eye Disorder, Hyperlipidemia, Hypertension, Osteoarthritis (OA), Pneumonia, Renal Disease, Seizure Disorder, Sleep Apnea/CPAP/BIPAP Additional Past Medical History / Comment(s): IDDM type II, neuropathy bilateral feet, past hematuria, CKD stage III, nephrolithiasis, chronic respiratory failure/home oxygen 3L/[place] ATC, bronchitis, R breast cancer x2 with lumpectomies/radiation, RACHEL/cpap used, spinal stenosis/chronic back pain, IBS, seizure x2 as a teen and one in 2009, bilateral macular degeneration/very poor vision, current wound R lower leg/skin tear and is seen at [facility]/home nurse, [place] History of Any Multi-Drug Resistant Organisms: MRSA, VRE Date of last positivie culture/infection: 10/14/23 MRSA; 10/02/21 VRE MDRO Source:: Right Foot-MRSA; Urine-VRE Past Surgical History: Appendectomy, Breast Surgery, Cholecystectomy, Hysterectomy, Orthopedic Surgery Additional Past Surgical History / Comment(s): R breast lumpectomies x2, cervical laminectomy, R arm fracture/repair with bone graft from hip, R rotator cuff repair, L leg wound debridement, surgery for kidney stones, colonoscopies, bilateral cataract removals/lens implants. Past Anesthesia/Blood Transfusion Reactions: No Reported Reaction, Motion Sickness Past Psychological History: Anxiety, Depression Smoking Status: Former smoker Past Alcohol Use History: None Reported Past Drug Use History: None Reported - Past Family History Mother Additional Family Medical History / Comment(s): breast cancer Father Family Medical History: Cancer Additional Family Medical History / Comment(s): Prostate cancer. General Exam Limitations: no limitations General appearance: alert, in no apparent distress Head exam: Present: normocephalic Eye exam: Present: normal appearance Neck exam: Present: normal inspection Respiratory exam: Present: wheezes, decreased breath sounds Cardiovascular Exam: Present: irregular rhythm GI/Abdominal exam: Present: soft. Absent: tenderness Extremities exam: Present: pedal edema (+1 bilateral). Absent: calf tenderness Neurological exam: Present: alert Psychiatric exam: Present: normal affect, normal mood Skin exam: Present: normal color Course Vital Signs 02/16/24 02/16/24 02/16/24 16:38 16:48 17:31 Temperature 98.3 F Pulse Rate 83 77 Respiratory 20 20 18 Rate Blood Pressure 126/74 O2 Sat by Pulse 88 L Oximetry 02/16/24 02/16/24 17:40 19:00 Temperature Pulse Rate 78 87 Respiratory 18 18 Rate Blood Pressure 131/86 O2 Sat by Pulse 95 Oximetry EKG Findings - EKG Results: EKG: interpreted by OLU (Atrial flutter. Left axis. Septal Q waves.), normal ST/T Medical Decision Making - Medical Decision Making Was pt. sent in by a medical professional or institution (, PA, SHELL TRIM TOOL SETTER, urgent care, hospital, or residential...) When possible be specific @ -No Did you speak to anyone other than the patient for history (EMS, parent, family, police, friend...)? What history was obtained from this source @ -No Did you review nursing and triage notes (agree or disagree)? Why? @ -I reviewed and agree with nursing and triage notes Were old charts reviewed (outside hosp., previous admission, EMS record, old EKG, old radiological studies, urgent care reports/EKG's, residential records)? Report findings @ -Previous labs reviewed Differential Diagnosis (chest pain, altered mental status, abdominal pain women, abdominal pain men, vaginal bleeding, weakness, fever, dyspnea, syncope, headache, dizziness, GI bleed, back pain, seizure, CVA, palpatations, mental health, musculoskeletal)? @ -Differential Dyspnea: Coronary syndrome, arrhythmia, tamponade, asthma, COPD, pulmonary embolism, pneumonia, pneumothorax, pulmonary effusion, anaphylaxis, diabetic ketoacidosis, flailed chest, pulmonary contusion, diaphragmatic rupture, anemia, neuromuscular, this is not meant to be an all-inclusive list. EKG interpreted by me (3pts min.). @ -As above X-rays interpreted by me (1pt min.). @ -Chest x-ray shows CHF CT interpreted by me (1pt min.). @ -None done U/S interpreted by me (1pt. min.). @ -None done What testing was considered but not performed or refused? (CT, X-rays, U/S, labs)? Why? @ -None What meds were considered but not given or refused? Why? @ -Medications will be provided for CHF Did you discuss the management of the patient with other professionals (professionals i.e. , PA, SHELL TRIM TOOL SETTER, lab, RT, psych nurse, social insurance specialist, sane nurse, teacher, cavalry officer, caser shoe parts)? Give summary @ -Case was discussed with Dr. Hernandez who will admit covering Dr. Capone Was smoking cessation discussed for >3mins.? @ -No Was critical care preformed (if so, how long)? @ -No Were there social determinants of health that impacted care today? How? (Homelessness, low income, unemployed, alcoholism, drug addiction, transportation, low edu. Level, literacy, decrease access to med. care, care home, rehab)? @ -No Was there de-escalation of care discussed even if they declined (Discuss DNR or withdrawal of care, Hospice)? DNR status @ -No What co-morbidities impacted this encounter? (DM, HTN, Smoking, COPD, CAD, Cancer, CVA, ARF, Chemo, Hep., AIDS, mental health diagnosis, sleep apnea, morbid obesity)? @ -History of COPD and CHF Was patient admitted / discharged? Hospital course, mention meds given and route, prescriptions, significant lab abnormalities, going to OR and other pertinent info. @ -Patient reevaluated without change. Patient updated on results and plan. Patient will be admitted with diuresis and further evaluation. Admission orders written. Undiagnosed new problem with uncertain prognosis? @ -No Drug Therapy requiring intensive monitoring for toxicity (Heparin, Nitro, Insulin, Cardizem)? @ -No Were any procedures done? @ -No Diagnosis/symptom? @ -CHF Acute, or Chronic, or Acute on Chronic? @ -Acute Uncomplicated (without systemic symptoms) or Complicated (systemic symptoms)? @ -Default Side effects of treatment? @ -No Exacerbation, Progression, or Severe Exacerbation? @ -No Poses a threat to life or bodily function? How? (Chest pain, [place], SD, pneumonia, PE, COPD, DKA, ARF, appy, cholecystitis, CVA, Diverticulitis, Homicidal, Suicidal, threat to staff... and all critical care pts) @ -No - Lab Data Result diagrams: 02/16/24 17:24 02/16/24 17:24 Lab Results 02/16/24 02/16/24 02/16/24 Range/Units 17:24 17:24 17:24 WBC 8.2 (3.8-10.6) k/uL RBC 3.90 (3.80-5.40) m/uL Hgb 11.6 (11.4-16.0) gm/dL Hct 37.6 (34.0-46.0) % MCV 96.5 (80.0-100.0) fL MCH 29.8 (25.0-35.0) pg MCHC 30.9 L (31.0-37.0) g/dL RDW 16.1 H (11.5-15.5) % Plt Count 157 (150-450) k/uL MPV 8.3 Neutrophils % 66 % Lymphocytes % 19 % Monocytes % 7 % Eosinophils % 5 % Basophils % 1 % Neutrophils # 5.4 (1.3-7.7) k/uL Lymphocytes # 1.6 (1.0-4.8) k/uL Monocytes # 0.6 (0-1.0) k/uL Eosinophils # 0.4 (0-0.7) k/uL Basophils # 0.1 (0-0.2) k/uL Hypochromasia Moderate Anisocytosis Slight PT 11.8 (10.0-12.5) sec INR 1.1 (<1.2) APTT 30.7 H (22.0-30.0) sec Sodium 144 (137-145) mmol/L Potassium 4.0 (3.5-5.1) mmol/L Chloride 107 (98-107) mmol/L Carbon Dioxide 28 (22-30) mmol/L Anion Gap 9 mmol/L BUN 55 H (7-17) mg/dL Creatinine 2.34 H (0.52-1.04) mg/dL Est GFR (CKD-EPI)AfAm 22 (>60 ml/min/1.73 sqM) Est GFR (CKD-EPI)NonAf 19 (>60 ml/min/1.73 sqM) Glucose 123 H (74-99) mg/dL Plasma Lactic Acid Hema (0.7-2.0) mmol/L Calcium 8.8 (8.4-10.2) mg/dL Magnesium 2.2 (1.6-2.3) mg/dL Total Bilirubin 0.8 (0.2-1.3) mg/dL AST 48 H (14-36) U/L ALT 18 (4-34) U/L Alkaline Phosphatase 249 H (38-126) U/L Troponin I (0.000-0.034) ng/mL NT-Pro-B Natriuret Pep 4420 pg/mL Total Protein 7.7 (6.3-8.2) g/dL Albumin 3.7 (3.5-5.0) g/dL 02/16/24 02/16/24 Range/Units 17:24 17:24 WBC (3.8-10.6) k/uL RBC (3.80-5.40) m/uL Hgb (11.4-16.0) gm/dL Hct (34.0-46.0) % MCV (80.0-100.0) fL MCH (25.0-35.0) pg MCHC (31.0-37.0) g/dL RDW (11.5-15.5) % Plt Count (150-450) k/uL MPV Neutrophils % % Lymphocytes % % Monocytes % % Eosinophils % % Basophils % % Neutrophils # (1.3-7.7) k/uL Lymphocytes # (1.0-4.8) k/uL Monocytes # (0-1.0) k/uL Eosinophils # (0-0.7) k/uL Basophils # (0-0.2) k/uL Hypochromasia Anisocytosis PT (10.0-12.5) sec INR (<1.2) APTT (22.0-30.0) sec Sodium (137-145) mmol/L Potassium (3.5-5.1) mmol/L Chloride (98-107) mmol/L Carbon Dioxide (22-30) mmol/L Anion Gap mmol/L BUN (7-17) mg/dL Creatinine (0.52-1.04) mg/dL Est GFR (CKD-EPI)AfAm (>60 ml/min/1.73 sqM) Est GFR (CKD-EPI)NonAf (>60 ml/min/1.73 sqM) Glucose (74-99) mg/dL Plasma Lactic Acid Hema 1.4 (0.7-2.0) mmol/L Calcium (8.4-10.2) mg/dL Magnesium (1.6-2.3) mg/dL Total Bilirubin (0.2-1.3) mg/dL AST (14-36) U/L ALT (4-34) U/L Alkaline Phosphatase (38-126) U/L Troponin I <0.012 (0.000-0.034) ng/mL NT-Pro-B Natriuret Pep pg/mL Total Protein (6.3-8.2) g/dL Albumin (3.5-5.0) g/dL Disposition Clinical Impression: Congestive heart failure Disposition: ADMITTED IP TO THIS HOSP Is patient prescribed a controlled substance at d/c from ED?: No Referrals: Stu Ring MD [Primary Care Provider] - 1-2 days Time of Disposition: 19:40
[2024-02-16] MEDS: IPRATROPIUM-ALBUTEROL 3 ML NEB INHALATION STA (17:30)
--- NOTE | 2024-02-16 17:40 | XR ---
EXAMINATION TYPE: XR chest 2V DATE OF EXAM: 02/16/2024 5:28 PM CLINICAL INDICATION:Female, 83 years old with history of difficulty breathing; [facility] COMPARISON: Chest radiographs from 09/07/2023 05/07/2021 TECHNIQUE: XR chest 2V Frontal and lateral views of the chest. FINDINGS: Lungs/Pleura: Consolidation/opacification projecting over the spine and multiple priors dating back t o at least 08/29/2023. There is no evidence of pleural effusion, focal consolidation, or pneumothorax. Pulmonary vascularity: Pulmonary vascular congestion. Heart/mediastinum: Cardiomediastinal silhouette is enlarged and stable. Musculoskeletal: No acute osseous pathology. Other findings: Known right breast cyst project over the right lung IMPRESSION: 1. Opacification over the spine in the posterior aspect of the lungs seen in a few priors no cross-s ectional imaging of this area has been performed since. Consider further evaluation with CT chest IV contrast. 2. Cardiomegaly and mild pulmonary vascular congestion. Correlate with BNP for congestive heart fail ure.
[2024-02-16 17:48] LABS: Anisocytosis Slight; Basophils # (A) 0.1 k/uL (0-0.2); Basophils % (A) 1 %; Eosinophils # (A) 0.4 k/uL (0-0.7); Eosinophils % (A) 5 %; HCT 37.6 % (34.0-46.0); HGB 11.6 gm/dL (11.4-16.0); Hypochromasia Moderate; Lymphocytes # (A) 1.6 k/uL (1.0-4.8); Lymphocytes % (A) 19 %; MCH 29.8 pg (25.0-35.0); MCHC 30.9 g/dL (31.0-37.0); MCV 96.5 fL (80.0-100.0); Mean Platelet Volume 8.3; Monocytes # (A) 0.6 k/uL (0-1.0); Monocytes % (A) 7 %; Neutrophils # (A) 5.4 k/uL (1.3-7.7); Neutrophils % (A) 66 %; Platelet Count 157 k/uL (150-450); RDW 16.1 % (11.5-15.5); WBC 8.2 k/uL (3.8-10.6)
[2024-02-16] MEDS: methylPREDNISolone SOD SUCCI 125 MG/2 ML VIAL IV STA (17:53)
[2024-02-16 17:56] LABS: INR 1.1 (<1.2); Partial Thromboplastin Time 30.7 sec (22.0-30.0); Prothrombin Time 11.8 sec (10.0-12.5)
[2024-02-16 17:59] LABS: ALT 18 U/L (4-34); AST 48 U/L (14-36); African American GFR (CKD) 22 (>60 ml/min/1.73 sqM); Albumin 3.7 g/dL (3.5-5.0); Alkaline Phosphatase 249 U/L (38-126); Anion Gap 9 mmol/L; Blood Urea Nitrogen 55 mg/dL (7-17); Calcium 8.8 mg/dL (8.4-10.2); Carbon Dioxide 28 mmol/L (22-30); Chloride 107 mmol/L (98-107); Glucose 123 mg/dL (74-99); Magnesium 2.2 mg/dL (1.6-2.3); Non-African American GFR(CKD) 19 (>60 ml/min/1.73 sqM); Sodium 144 mmol/L (137-145); Total Bilirubin 0.8 mg/dL (0.2-1.3); Total Protein 7.7 g/dL (6.3-8.2)
[2024-02-16 18:07] LABS: NT-Pro-B-Type Natriuretic Pept 4420 pg/mL
[2024-02-16] MEDS: FUROSEMIDE 10 MG/ML 4 ML VIAL IV SCH (19:56)
[2024-02-16 22:30] LABS: Glucose,Whole Blood 212 mg/dL (70-110)
[2024-02-17] MEDS: MELATONIN 5 MG TABLET PO ONE (00:41)
[2024-02-17] MEDS ORDERED: ACETAMINOPHEN TAB 325 MG TAB PO PRN (03:17)
--- NOTE | 2024-02-17 03:26 | P.HPIM ---
History of Present Illness H&P Date: 02/16/24 Chief Complaint: Shortness of breath 83-year-old female with complex past medical history diabetes mellitus A-fib on Eliquis COPD on 3 L oxygen at home Patient coming in due to 1 week history of worsening shortness of breath wheezing denies any associated orthopnea or paroxysmal junctional dyspnea she noticed some degree of leg swelling. Denies any recent travel or hospital stay denies any history of blood clots. Denies any upper respiratory infection symptoms. She complains of some occasional dry cough has not changed in character which is chronic. Today her difficulty breathing became worse and decided to come in for evaluation Otherwise denies any chest pain denies any nausea vomiting denies any GI bleeding denies any abdominal pain Patient denies tobacco smoking illicit drugs or heavy alcohol review of systems Pertinent positives as noted in HPI. All other systems were reviewed and are negative on exam Constitutional: No acute distress, conversant, pleasant Eyes: Anicteric sclerae, moist conjunctiva, Pupils equal round reactive to light ENMT: NC/AT Oropharynx clear, no erythema, or exudates Neck: Supple, no masses, or JVD No carotid bruits No thyromegaly Lungs: Decreased breath sounds bilateral lung bases no wheezing Clear to percussion Normal respiratory effort, no accessory muscle use Cardiovascular: Heart regular in rate and rhythm, No murmurs, gallops, or rubs +1 bilateral peripheral leg edema Abdominal: Soft Nontender, no guarding, rebound or rigidity Abdomen moving with respiration Normoactive bowel sounds No hepatomegaly, No splenomegaly Extremities: No digital cyanosis No clubbing Pedal pulses intact and symmetrical Radial pulses intact and symmetrical No calf tenderness Psychiatric: Alert and oriented to person, place and time Neuro Muscles Strength 4/5 in all 4 extremities Sensation to light touch grossly present throughout Cranial nerves II-XII grossly intact Past Medical History Past Medical History: Atrial Fibrillation, Cancer, Heart Failure, COPD, Diabetes Mellitus, Eye Disorder, Hyperlipidemia, Hypertension, Osteoarthritis (OA), Pneumonia, Renal Disease, Seizure Disorder, Sleep Apnea/CPAP/BIPAP Additional Past Medical History / Comment(s): IDDM type II, neuropathy bilateral feet, past hematuria, CKD stage III, nephrolithiasis, chronic respiratory failure/home oxygen 3L/NC ATC, bronchitis, R breast cancer x2 with lumpectomies/radiation, RACHEL/cpap used, spinal stenosis/chronic back pain, IBS, seizure x2 as a teen and one in 2010, bilateral macular degeneration/very poor vision, 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 Past Anesthesia/Blood Transfusion Reactions: No Reported Reaction, Motion Sickness Past Psychological History: Anxiety, Depression Additional Psychological History / Comment(s): Pt resides at [facility]. assisted living She has ambulates with assistance/walker but not much, mostly in electric wheelchair. She transfers herself. She has oxygen, nebulizer, glucometer. Smoking Status: Former smoker Past Alcohol Use History: None Reported Additional Past Alcohol Use History / Comment(s): Pt started smoking in 1957 and quit 15 year ago Past Drug Use History: None Reported - Past Family History Mother Additional Family Medical History / Comment(s): breast cancer Father Family Medical History: Cancer Additional Family Medical History / Comment(s): Prostate cancer. Medications and Allergies Home Medications Medication Instructions Recorded Confirmed Type Atorvastatin [Lipitor] 20 mg PO HS 07/15/14 02/16/24 History Latanoprost Ophth [Xalatan 0.005%] 1 drop BOTH EYES HS 01/28/21 02/16/24 History Montelukast [Singulair] 10 mg PO HS 01/28/21 02/16/24 History Roflumilast [Daliresp] 500 mcg PO DAILY 01/28/21 02/16/24 History Vit C/E/Zn/Coppr/Lutein/Zeaxan 1 cap PO BID 01/28/21 02/16/24 History [Preservision Areds 2 Softgel] Ipratropium-Albuterol Nebulize 3 ml INHALATION RT-QID 09/03/21 02/16/24 History [Duoneb 0.5 mg-3 mg/3 ml Soln] Insulin Lispro [humaLOG Kwikpen] See Protocol SQ AC-TID 07/23/22 02/16/24 History Cyanocobalamin (Vitamin B-12) 1,000 mcg PO DAILY 12/10/22 02/16/24 History [Vitamin B-12] Albuterol Sulfate [Albuterol 2 puff INHALATION RT-Q6H PRN 06/06/23 02/16/24 History Sulfate Hfa] Ammonium Lactate Lotion 1 applic TOPICAL BID 06/06/23 02/16/24 History [Lac-Hydrin 12% Lotion] Benzonatate [Tessalon Perle] 200 mg PO TID PRN 06/06/23 02/16/24 History Famotidine [Pepcid] 20 mg PO DAILY 06/06/23 02/16/24 History Insulin Glargine,Hum.rec.anlog 22 units SQ HS 06/06/23 02/16/24 History [Lantus Solostar Pen] Levothyroxine Sodium [Synthroid] 100 mcg PO AC-BRKFST 06/06/23 02/16/24 History Loperamide HCl [Imodium A-D] 2 - 4 mg PO Q8H PRN MDD 16mg 06/06/23 02/16/24 History Melatonin 10 mg PO HS PRN 06/06/23 02/16/24 History Metoprolol Tartrate [Lopressor] 75 mg PO TID 06/06/23 02/16/24 History amLODIPine [Norvasc] 2.5 mg PO DAILY 06/06/23 02/16/24 History Apixaban [Eliquis] 2.5 mg PO BID #60 tab 06/10/23 02/16/24 Rx Dapagliflozin Propanediol [Farxiga] 10 mg PO DAILY #30 tab 06/10/23 02/16/24 Rx Acetaminophen Tab [Tylenol] 650 mg PO Q4H PRN 08/29/23 02/16/24 History Fluticasone Nasal [place] [Flonase 1 spr EA NOSTRIL DAILY 08/29/23 02/16/24 History Nasal [place]] Olopatadine HCl [Patanol 0.1%] 1 drop BOTH EYES BID 08/29/23 02/16/24 History hydrALAZINE HCL [Apresoline] 25 mg PO TID 08/29/23 02/16/24 History hydrOXYzine HCL [Atarax] 50 mg PO DAILY PRN 08/29/23 02/16/24 History Ondansetron Odt [Zofran Odt] 4 mg PO Q8HR PRN #10 tab 11/11/23 02/16/24 Rx Acetaminophen Tab [Tylenol Tab] 500 mg PO Q8H PRN 02/16/24 02/16/24 History Calazinc Barrier Cream 1 applic TOPICAL DAILY PRN 02/16/24 02/16/24 History Diclofenac Sodium Gel [Voltaren 1% 2 gm TOPICAL BID PRN 02/16/24 02/16/24 History Gel] Furosemide [Lasix] 20 mg PO DAILY 02/16/24 02/16/24 History Furosemide [Lasix] 40 mg PO DAILY 02/16/24 02/16/24 History HYDROcodone/APAP 5-325MG [[place] 5] 1 tab PO BID PRN 02/16/24 02/16/24 History Lidocaine 5% Patch [Lidoderm] 1 patch TRANSDERM HS 02/16/24 02/16/24 History Nystatin 100,000 Unit/gm Powd 1 applic TOPICAL BID 02/16/24 02/16/24 History [Mycostatin Powder] Sennosides/Docusate Sodium [Senna 1 tab PO DAILY PRN 02/16/24 02/16/24 History Plus 8.6-50 mg Tablet] Sertraline [Zoloft] 100 mg PO DAILY 02/16/24 02/16/24 History Zinc Oxide [Cozima] 1 applic TOPICAL DAILY PRN 02/16/24 02/16/24 History Allergies Allergy/AdvReac Type Severity Reaction Status Date / Time adhesive tape Allergy Rash/Hives Verified 02/16/24 19:51 diclofenac sodium AdvReac pt states Verified 02/16/24 19:51 [From Voltaren] kidney failure Physical Exam Vitals: Vital Signs Temp Pulse Pulse Resp BP BP Pulse Ox 02/16/24 22:10 98.1 F 107 H 20 119/77 95 02/16/24 20:53 78 18 147/93 96 02/16/24 19:00 87 18 131/86 95 02/16/24 17:40 78 18 02/16/24 17:31 77 18 03/20/24 16:48 20 02/16/24 16:38 98.3 F 83 20 126/74 88 L Intake and Output 02/16/24 02/16/24 02/17/24 14:59 22:59 06:59 Other: Weight 91.138 kg Results CBC & Chem 7: 02/16/24 17:24 02/16/24 17:24 Labs: Abnormal Lab Results - Last 24 Hours (Table) 02/16/24 02/16/24 02/16/24 Range/Units 17:24 17:24 17:24 MCHC 30.9 L (31.0-37.0) g/dL RDW 16.1 H (11.5-15.5) % APTT 30.7 H (22.0-30.0) sec BUN 55 H (7-17) mg/dL Creatinine 2.34 H (0.52-1.04) mg/dL Glucose 123 H (74-99) mg/dL POC Glucose (mg/dL) (70-110) mg/dL AST 48 H (14-36) U/L Alkaline Phosphatase 249 H (38-126) U/L 02/16/24 Range/Units 22:27 MCHC (31.0-37.0) g/dL RDW (11.5-15.5) % APTT (22.0-30.0) sec BUN (7-17) mg/dL Creatinine (0.52-1.04) mg/dL Glucose (74-99) mg/dL POC Glucose (mg/dL) 212 H (70-110) mg/dL AST (14-36) U/L Alkaline Phosphatase (38-126) U/L Thrombosis Risk Factor Assmnt - Choose All That Apply Any of the Below Risk Factors Present?: Yes Each Factor Represents 1 point: Abnormal pulmonary function (COPD), Heart failure (<1month), Obesity (BMI >25), Swollen legs (current) Other Risk Factors: Yes Each Risk Factor Represents 3 Points: Age 75 years or older Other congenital or acquired thrombophilia - If yes, enter type in comment: No Thrombosis Risk Factor Assessment Total Risk Factor Score: 7 Thrombosis Risk Factor Assessment Level: High Risk Assessment and Plan Assessment: 83-year-old female with complex past medical history coming in for worsening shortness of breath over the past 1 week with wheezing denies any orthopnea or PND's however does describe some slight bilateral leg edema I discussed the case with ED doctor and accepted the admission for acute COPD exacerbation with anticipated length of stay more than 2 midnights Difficulty breathing with wheezing multifactorial COPD exacerbation and mild to moderate CHF exacerbation with history of diastolic CHF Chronic hypoxic respiratory failure Chest x-ray showed mild pulmonary vascular congestion, also showed some suspic ious opacity posterior to the lungs over the spine Patient known to have history of recurrent breast cancer CT with contrast was not performed due to chronic kidney disease Pulmonary consult for further recommendations Rosalba scheduled and as needed Oral systemic steroids 40 mg p.o. daily IV Lasix 40 mg every 8 hours Elevated proBNP 4500 Acute respiratory viral panel pending White count 8.2 hemoglobin 11.6 Supplemental oxygen as needed Chronic kidney disease Sodium 144 potassium 4 BUN 55 creatinine 2.3 Avoid nephrotoxic meds Monitor urine output Diabetes mellitus Insulin sliding scale Atrial fibrillation rate controlled Continue with Eliquis Continue with metoprolol Code status DNR DVT prophylaxis on Eliquis 2.5 mg p.o. twice daily
[2024-02-17 05:51] LABS: Glucose,Whole Blood 272 mg/dL (70-110)
[2024-02-17] MEDS: LEVOTHYROXINE 100 MCG TAB PO SCH (06:53)
[2024-02-17] MEDS: INSULIN ASPART (NovoLOG) 100 UNIT/ML VIAL SQ ONE (07:04)
[2024-02-17] MEDS: IPRATROPIUM-ALBUTEROL 3 ML NEB INHALATION SCH (08:12)
[2024-02-17] MEDS ORDERED: DEXTROSE 50% SYRINGE 50 ML IVP PRN ×2 (08:41)
[2024-02-17] MEDS: METOPROLOL TARTRATE 25 MG TAB PO SCH (08:45)
[2024-02-17] MEDS: predniSONE 20 MG TAB PO SCH (08:45)
[2024-02-17] MEDS: FAMOTIDINE 20 MG TAB PO SCH (08:45)
[2024-02-17] MEDS: amLODIPine 2.5 MG TAB PO SCH (08:45)
[2024-02-17] MEDS: APIXABAN 2.5 MG TABLET PO SCH (08:45)
[2024-02-17] MEDS: hydrALAZINE HCL 25 MG TAB PO SCH (08:45)
[2024-02-17] MEDS: SERTRALINE 100 MG TAB PO SCH (08:47)
--- NOTE | 2024-02-17 10:32 | CT ---
EXAMINATION TYPE: CT chest wo con CT DLP: 421.5 mGycm, Automated exposure control for dose reduction was used. DATE OF EXAM: 02/17/2024 8:44 AM COMPARISON: Two-view chest x-ray 02/16/2024 . CLINICAL INDICATION:Female, 83 years old with history of evaluation posterior lung opacity; PHH, Eval uation posterior lung capacity TECHNIQUE: Multiple axial images were obtained through the chest. Sagittal and coronal reformats were created for review. Contrast used: mL of (None if empty) Oral contrast used: (None if empty) FINDINGS: Examination limited by lack of IV contrast. LUNGS/ PLEURA: Moderate to severe pulmonary emphysematous changes, upper lobe predominant. Some mild interspersed groundglass densities in the aerated lungs. Scattered areas of scarring and subsegmental atelectasis. No definite infiltrate or mass identified. Moderate-sized, partially loculated right pleural effusion with adjacent compressive atelectasis. Tra ce left effusion. No pneumothorax. AIRWAY: Central airways are patent. LOWER NECK: No significant findings. Mildly prominent thyroid. MEDIASTINUM: A few mildly prominent, likely reactive nodes are seen with none enlarged by CT size cri teria.. HEART: Heart is moderately enlarged. Mild coronary artery calcification. Mildly prominent pericardial fat without significant effusion. VASCULATURE: Moderate to severe atherosclerotic calcifications of the aorta and branches. Ascending aorta is up to about 3.4 CM, descending is 2.6 CM. Pulmonary trunk measures up to 4 CM. The pulmonary trunk is enlarged (>3cm), highly suggestive of pul monary hypertension. Vessels otherwise not further assessed without contrast. SOFT TISSUES/LYMPH NODES: Left breast shows some scattered fibroglandular densities. Right breast monty ears somewhat smaller and deformed. There is a masslike relatively circumscribed density up to 3.2 cm in size just anterior to the pectoralis major with some coarse calcifications along its margin; a sm all adjacent ovoid nodule is seen just lateral to this. No enlarged axillary nodes are seen. UPPER ABDOMEN: Small amount of perihepatic ascites. Anterior margin of the liver and a portion of the ascites extends slightly anteriorly and laterally under the margin of the rib cage. Spleen is incomp letely seen but is likely enlarged as the visualized portion measures at least 8 cm. A rounded hypode nsity in its left lateral aspect is nonspecific, could be cyst or hemangioma. Moderate calcifications of the upper abdominal aorta and visualized branch vessels. MUSCULOSKELETAL: No acute osseous abnormalities. Moderate disc degeneration changes are present throu ghout the thoracolumbar spine. Partially seen degenerative changes of the shoulders. IMPRESSION: 1. Limited unenhanced study. 2. Moderate to severe pulmonary emphysematous changes, with mild interspersed groundglass densities which could reflect some air trapping or inflammation. Scattered areas of scarring and subsegmental a telectasis. 3. Moderate-sized, partially loculated right pleural effusion with adjacent compressive atelectasis. Trace left effusion. 4. Moderate cardiomegaly. Mild coronary artery calcification. 5. Moderate to severe atherosclerotic calcifications of the aorta and branches. 6. Enlarged pulmonary trunk, highly suggestive of pulmonary hypertension. 7. Probable postoperative changes of the right breast, correlate clinically with history and finding s of routine breast imaging to exclude chance of malignancy. 8. Small volume perihepatic ascites.
[2024-02-17] MEDS ORDERED: ONDANSETRON 4 MG/2 ML VIAL IVP PRN (10:55)
[2024-02-17] MEDS ORDERED: bisacodyL 5 MG TABLET.DR PO PRN (10:55)
[2024-02-17] MEDS ORDERED: ALBUTEROL NEBULIZED 2.5 MG/3 ML INHALATION PRN (10:55)
[2024-02-17 11:55] LABS: Glucose,Whole Blood 227 mg/dL (70-110)
[2024-02-17] MEDS: KETOTIFEN 0.025% OPHTH DROPS 5 ML BTL BOTH EYES SCH (12:15)
[2024-02-17] MEDS: INSULIN ASPART (NovoLOG) 100 UNIT/ML VIAL SQ SCH (12:15)
--- NOTE | 2024-02-17 12:27 | P.CRDCN ---
History of Present Illness History of present illness: HISTORY OF PRESENT ILLNESS: This is a 83-year-old female with a past medical history significant for permanent atrial fibrillation, COPD on home oxygen, pulmonary hypertension, hypertension, hyperlipidemia, diabetes, and congestive heart failure. Patient follows in the office with Dr. Umanzor. We have been asked to see the patient in consultation for congestive heart failure. Patient examined at the bedside. Patient presented to the hospital with a chief complaint of shortness of breath and increased lower extremity edema. Patient states she has been wheezing for the past week. She states she has noticed increased lower extremity edema for the past 2 to 3 days. Patient denies any chest pain or pressure. She states that she tries to follow a low-sodium diet on an outpatient basis. She has been compliant with all of her medications. Vital signs are stable. Patient was fo und to be in acute CHF and was started on IV Lasix. DIAGNOSTICS: - EKG reveals atrial fibrillation with controlled ventricular rate. - Chest xray opacification over the spine in the posterior aspect of the lung seen in a few priors no cross-sectional imaging of this area has been performed since. Cardiomegaly and mild pulmonary vascular congestion. -CT chest: Moderate to severe pulmonary emphysematous changes, with mild interspersed groundglass densities which could reflect some air trapping or inflammation. Scattered areas of scarring and subsegmental atelectasis. Moderate sized partially loculated right pleural effusion with adjacent compressive atelectasis. Trace left pleural effusion. Moderate cardiomegaly. Mild coronary artery calcifications. Moderate to severe atherosclerotic calcifications of the aorta and branches. Enlarged pulmonary trunk, highly suggestive of pulmonary hypertension. Probable postoperative changes to the right breast. Small volume perihepatic ascites. - Laboratory data: WBC 8.2. Hemoglobin 11.6. Platelet count 157. Sodium 144. Potassium 4.0. BUN 55. Creatinine 2.34. Troponin negative x 1. proBNP 4420. - Current home cardiac medications include hydralazine 25 mg 3 times a day, metoprolol tartrate 75 mg 3 times a day, Lipitor 20 mg at night, amlodipine 2.5 mg daily, Lasix unknown dose as she has listed 40 mg in the morning and also 20 mg in the morning, and Eliquis 2.5 mg twice a day. - Most recent echocardiogram obtained in 05/2023 reveals EF 55-60%, severe pulmonary hypertension, mild REVIEW OF SYSTEMS: At the time of my exam: CONSTITUTIONAL: Denies fever or chills. HEENT: Denies blurred vision, vision changes, or eye pain. Denies hemoptysis CARDIOVASCULAR: Denies chest pain. Denies orthopnea. Denies PND. Denies palpitat ions RESPIRATORY: Reports shortness of breath. GASTROINTESTINAL: Denies abdominal pain. Denies nausea or vomiting. HEMATOLOGIC: Denies bleeding disorders. GENITOURINARY: Denies any blood in urine. SKIN: Denies pruitis. Denies rash. PHYSICAL EXAM: VITAL SIGNS: Reviewed. GENERAL: Well-developed in no acute distress. HEENT: Head is normocephalic. Pupils are equal, round. Sclerae anicteric. Mucous membranes of the mouth are moist. Neck supple. No JVD or thyromegaly LUNGS: Respirations even and unlabored. Lungs managed with bibasilar crackles HEART: Irregular rate and rhythm. S1 and S2 heard. ABDOMEN: Soft. Nondistended. Nontender. EXTREMITIES: Normal range of motion. No clubbing or cyanosis. Peripheral pulses intact. 2+ bilateral lower extremity edema NEUROLOGIC: Awake and alert. Oriented x 3. ASSESSMENT: Shortness of breath Acute on chronic heart failure with preserved EF Moderate sized partially loculated right pleural effusion Severe pulmonary hypertension Permanent atrial fibrillation COPD Chronic kidney disease Chronic hypoxic respiratory failure on home oxygen History of hypertension History of hyperlipidemia Diabetes Mild aortic stenosis PLAN: Obtain 2D echo to assess cardiac structure and function Resume home cardiac medications Continue IV Lasix 40 mg every 8 hours Daily weights, accurate intake and output, and monitoring of kidney function Further recommendations pending patient course Nurse practitioner note has been reviewed by physician. Signing provider agrees with the documented findings, assessment, and plan of care documented by [employer] as a scribe. Past Medical History Past Medical History: Atrial Fibrillation, Cancer, Heart Failure, COPD, Diabetes Mellitus, Eye Disorder, Hyperlipidemia, Hypertension, Osteoarthritis (OA), Pneumonia, Renal Disease, Seizure Disorder, Sleep Apnea/CPAP/BIPAP Additional Past Medical History / Comment(s): IDDM type II, neuropathy bilateral feet, past hematuria, CKD stage III, nephrolithiasis, chronic respiratory failure/home oxygen 3L/[place] ATC, bronchitis, R breast cancer x2 with lumpectomies/radiation, RACHEL/cpap used, spinal stenosis/chronic back pain, IBS, seizure x2 as a teen and one in 2009, bilateral macular degeneration/very poor vision, 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 Past Anesthesia/Blood Transfusion Reactions: No Reported Reaction, Motion Sickness Past Psychological History: Anxiety, Depression Additional Psychological History / Comment(s): Pt resides at [facility]. assisted living She has ambulates with assistance/walker but not much, mostly in electric wheelchair. She transfers herself. She has oxygen, nebulizer, glucometer. Smoking Status: Former smoker Past Alcohol Use History: None Reported Additional Past Alcohol Use History / Comment(s): Pt started smoking in 1957 and quit 15 year ago Past Drug Use History: None Reported - Past Family History Mother Additional Family Medical History / Comment(s): breast cancer Father Family Medical History: Cancer Additional Family Medical History / Comment(s): Prostate cancer. Medications and Allergies Home Medications Medication Instructions Recorded Confirmed Type Atorvastatin [Lipitor] 20 mg PO HS 07/15/14 02/16/24 History Latanoprost Ophth [Xalatan 0.005%] 1 drop BOTH EYES HS 01/28/21 02/16/24 History Montelukast [Singulair] 10 mg PO HS 01/28/21 02/16/24 History Roflumilast [Daliresp] 500 mcg PO DAILY 01/28/21 02/16/24 History Vit C/E/Zn/Coppr/Lutein/Zeaxan 1 cap PO BID 01/28/21 02/16/24 History [Preservision Areds 2 Softgel] Ipratropium-Albuterol Nebulize 3 ml INHALATION RT-QID 09/03/21 02/16/24 History [Duoneb 0.5 mg-3 mg/3 ml Soln] Insulin Lispro [humaLOG Kwikpen] See Protocol SQ AC-TID 07/23/22 02/16/24 History Cyanocobalamin (Vitamin B-12) 1,000 mcg PO DAILY 12/10/22 02/16/24 History [Vitamin B-12] Albuterol Sulfate [Albuterol 2 puff INHALATION RT-Q6H PRN 06/06/23 02/16/24 History Sulfate Hfa] Ammonium Lactate Lotion 1 applic TOPICAL BID 06/06/23 02/16/24 History [Lac-Hydrin 12% Lotion] Benzonatate [Tessalon Perle] 200 mg PO TID PRN 06/06/23 02/16/24 History Famotidine [Pepcid] 20 mg PO DAILY 06/06/23 02/16/24 History Insulin Glargine,Hum.rec.anlog 22 units SQ HS 06/06/23 02/16/24 History [Lantus Solostar Pen] Levothyroxine Sodium [Synthroid] 100 mcg PO AC-BRKFST 06/06/23 02/16/24 History Loperamide HCl [Imodium A-D] 2 - 4 mg PO Q8H PRN MDD 16mg 06/06/23 02/16/24 History Melatonin 10 mg PO HS PRN 06/06/23 02/16/24 History Metoprolol Tartrate [Lopressor] 75 mg PO TID 06/06/23 02/16/24 History amLODIPine [Norvasc] 2.5 mg PO DAILY 06/06/23 02/16/24 History Apixaban [Eliquis] 2.5 mg PO BID #60 tab 06/10/23 02/16/24 Rx Dapagliflozin Propanediol [Farxiga] 10 mg PO DAILY #30 tab 06/10/23 02/16/24 Rx Acetaminophen Tab [Tylenol] 650 mg PO Q4H PRN 08/29/23 02/16/24 History Fluticasone Nasal Fertile [Flonase 1 spr EA NOSTRIL DAILY 08/29/23 02/16/24 History Nasal Fertile] Olopatadine HCl [Patanol 0.1%] 1 drop BOTH EYES BID 08/29/23 02/16/24 History hydrALAZINE HCL [Apresoline] 25 mg PO TID 08/29/23 02/16/24 History hydrOXYzine HCL [Atarax] 50 mg PO DAILY PRN 08/29/23 02/16/24 History Ondansetron Odt [Zofran Odt] 4 mg PO Q8HR PRN #10 tab 11/11/23 02/16/24 Rx Acetaminophen Tab [Tylenol Tab] 500 mg PO Q8H PRN 02/16/24 02/16/24 History Calazinc Barrier Cream 1 applic TOPICAL DAILY PRN 02/16/24 02/16/24 History Diclofenac Sodium Gel [Voltaren 1% 2 gm TOPICAL BID PRN 02/16/24 02/16/24 History Gel] Furosemide [Lasix] 20 mg PO DAILY 02/16/24 02/16/24 History Furosemide [Lasix] 40 mg PO DAILY 02/16/24 02/16/24 History HYDROcodone/APAP 5-325MG [Colony 5] 1 tab PO BID PRN 02/16/24 02/16/24 History Lidocaine 5% Patch [Lidoderm] 1 patch TRANSDERM HS 02/16/24 02/16/24 History Nystatin 100,000 Unit/gm Powd 1 applic TOPICAL BID 02/16/24 02/16/24 History [Mycostatin Powder] Sennosides/Docusate Sodium [Senna 1 tab PO DAILY PRN 02/16/24 02/16/24 History Plus 8.6-50 mg Tablet] Sertraline [Zoloft] 100 mg PO DAILY 02/16/24 02/16/24 History Zinc Oxide [Cozima] 1 applic TOPICAL DAILY PRN 02/16/24 02/16/24 History Allergies Allergy/AdvReac Type Severity Reaction Status Date / Time adhesive tape Allergy Rash/Hives Verified 02/16/24 19:51 diclofenac sodium AdvReac pt states Verified 02/16/24 19:51 [From Voltaren] kidney failure Physical Exam Vitals: Vital Signs Temp Pulse Pulse Resp BP BP Pulse Ox 02/17/24 08:25 76 02/17/24 08:13 76 02/17/24 08:00 98.2 F 79 20 117/66 98 02/17/24 04:00 97.6 F 107 H 20 135/74 96 02/16/24 22:10 98.1 F 107 H 20 119/77 95 02/16/24 20:53 78 18 147/93 96 02/16/24 19:00 87 18 131/86 95 02/16/24 17:40 78 18 02/16/24 17:31 77 18 02/16/24 16:48 20 02/16/24 16:38 98.3 F 83 20 126/74 88 L Intake and Output 02/16/24 02/17/24 02/17/24 22:59 06:59 14:59 Intake Total 250 Balance 250 Intake: Oral 250 Other: Voiding Method Incontinent External Catheter Weight 91.138 kg Results 02/16/24 17:24 02/16/24 17:24 Cardiac Enzymes 02/16/24 02/16/24 Range/Units 17:24 17:24 AST 48 H (14-36) U/L Troponin I <0.012 (0.000-0.034) ng/mL Coagulation 02/16/24 Range/Units 17:24 PT 11.8 (10.0-12.5) sec APTT 30.7 H (22.0-30.0) sec CBC 02/16/24 Range/Units 17:24 WBC 8.2 (3.8-10.6) k/uL RBC 3.90 (3.80-5.40) m/uL Hgb 11.6 (11.4-16.0) gm/dL Hct 37.6 (34.0-46.0) % Plt Count 157 (150-450) k/uL Comprehensive Metabolic Panel 02/16/24 Range/Units 17:24 Sodium 144 (137-145) mmol/L Potassium 4.0 (3.5-5.1) mmol/L Chloride 107 (98-107) mmol/L Carbon Dioxide 28 (22-30) mmol/L BUN 55 H (7-17) mg/dL Creatinine 2.34 H (0.52-1.04) mg/dL Glucose 123 H (74-99) mg/dL Calcium 8.8 (8.4-10.2) mg/dL AST 48 H (14-36) U/L ALT 18 (4-34) U/L Alkaline Phosphatase 249 H (38-126) U/L Total Protein 7.7 (6.3-8.2) g/dL Albumin 3.7 (3.5-5.0) g/dL Current Medications Generic Name Dose Route Start Last Admin Trade Name Freq PRN Reason Stop Dose Admin Acetaminophen 650 mg 02/17/24 03:17 Acetaminophen Tab 325 Mg Tab PO Q4H PRN Pain Hydrocodone Bitart/Acetaminophen 1 each 02/17/24 03:17 Hydrocodone/Apap 5-325mg 1 Each Tab PO BID PRN Pain Albuterol Sulfate 2.5 mg 02/17/24 10:55 Albuterol Nebulized 2.5 Mg/3 Ml INHALATION RT-QID PRN Shortness Of Breath Or Wheezing Albuterol/Ipratropium 3 ml 02/17/24 08:00 02/17/24 08:12 Ipratropium-Albuterol 3 Ml Neb INHALATION 3 ml RT-QID JENNIFER Administration Amlodipine Besylate 2.5 mg 02/17/24 09:00 02/17/24 08:45 Amlodipine 2.5 Mg Tab PO 2.5 mg DAILY JENNIFER Administration Apixaban 2.5 mg 02/17/24 09:00 02/17/24 08:45 Apixaban 2.5 Mg Tablet PO 2.5 mg BID JENNIFER Administration Protocol Atorvastatin Calcium 20 mg 02/17/24 21:00 Atorvastatin 20 Mg Tab PO HS [facility] Bisacodyl 5 mg 02/17/24 10:55 Bisacodyl 5 Mg Tablet.Dr PO DAILY PRN Constipation Dextrose/Water 25 ml 02/17/24 08:41 Dextrose 50% Syringe 50 Ml IVP PER PROTOCOL PRN Hypoglycemia Protocol Dextrose/Water 50 ml 02/17/24 08:41 Dextrose 50% Syringe 50 Ml IVP PER PROTOCOL PRN Hypoglycemia Protocol Famotidine 20 mg 02/17/24 09:00 02/17/24 08:45 Famotidine 20 Mg Tab PO 20 mg DAILY JENNIFER Administration Furosemide 40 mg 02/16/24 20:00 02/17/24 05:24 Furosemide 10 Mg/Ml 4 Ml Vial IV 40 mg Q8H JENNIFER Administration Hydralazine HCl 25 mg 02/17/24 09:00 02/17/24 08:45 Hydralazine Hcl 25 Mg Tab PO 25 mg TID [facility] Administration Insulin Aspart 0 unit 02/17/24 12:30 Insulin Aspart (Novolog) 100 Unit/Ml Vial SQ [facility] Protocol Insulin Detemir 22 unit 02/17/24 21:00 Insulin Detemir (Levemir) 100 Unit/Ml Syr SQ [facility] Ketotifen Fumarate 1 drops 02/17/24 09:00 Ketotifen 0.025% Ophth Drops 5 Ml Btl BOTH EYES BID [facility] Levothyroxine Sodium 100 mcg 02/17/24 06:30 02/17/24 06:53 Levothyroxine 100 Mcg Tab PO 100 mcg DAILY@0630 [facility] Administration Melatonin 5 mg 02/17/24 21:00 Melatonin 5 Mg Tablet PO HS [facility] Metoprolol Tartrate 75 mg 02/17/24 09:00 02/17/24 08:45 Metoprolol Tartrate 25 Mg Tab PO 75 mg TID [facility] Administration Montelukast Sodium 10 mg 02/17/24 21:00 Montelukast 10 Mg Tab PO HS [facility] Ondansetron HCl 4 mg 02/17/24 10:55 Ondansetron 4 Mg/2 Ml Vial IVP Q6H PRN Nausea Prednisone 40 mg 02/17/24 09:00 02/17/24 08:45 Prednisone 20 Mg Tab PO 40 mg DAILY [facility] Administration Sertraline HCl 100 mg 02/17/24 09:00 02/17/24 08:47 Sertraline 100 Mg Tab PO 100 mg DAILY [facility] Administration Intake and Output 02/16/24 02/17/24 02/17/24 22:59 06:59 14:59 Intake Total 250 Balance 250 Intake: Oral 250 Other: Voiding Method Incontinent External Catheter Weight 91.138 kg 02/16/24 17:24 02/16/24 17:24
[2024-02-17 15:09] VITALS: BMI 33.4
[2024-02-17] MEDS ORDERED: BENZONATATE 100 MG CAP PO PRN (16:08)
--- NOTE | 2024-02-17 17:03 | P.CNPUL ---
History of Present Illness Consult date: 02/17/24 Reason for consult: dyspnea History of present illness: This is a 83-year-old female patient presented to the hospital because of shortness of breath. The patient has seen us in the office and the patient is oxygen dependent COPD with chronic hypoxic respiratory failure and she is O2 dependent. Her based on FEV1 is in order of 40% of predicted. She has also other comorbidities including CHF and based on echocardiogram that was done back in 2020, the patient ejection fraction of 30-35% and moderate concentric LVH and mild pulmonary hypertension with a PA pressure of 44 mmHg. She is maintained on oxygen at 3 L/m nasal cannula daily basis. She has also issues with diabetes mellitus, hypertension, spinal stenosis, ventral hernia, acid reflux, headaches, depression, spinal stenosis, and history of breast cancer and she was had previous lumpectomies and radiation therapy, seizure disorder, macular degeneration and the patient has impaired vision and obstructive sleep apnea and she has used CPAP therapy in the past. She has also issues with chronic kidney disease, stage III chronic kidney failure, a chest fibrillation, and osteoarthritis. . The patient is coming to the hospital because of worsening shortness of breath. The patient also had increased edema lower extremities bilaterally. EKG showed a atrial fibrillation rhythm with a controlled rate. The chest x-ray shows cardiomegaly and pulm venous congestion consistent with CHF. CAT scan of the chest showed moderate to severe emphysematous changes bilaterally. There is also widespread groundglass densities bilaterally consistent with CHF. There is also a small right-sided pleural effusion along with compressive atelectasis in the right lung base and cardiomegaly and coronary artery calcifications. The patient had a blood work that showed a WBC count of 8.2, hemoglobin 11.6 and a platelet count of 157. BUN is 55 with a creatinine of 2.34 as the patient has chronic stage IV kidney disease. proBNP level was 4420 and a troponin was negative. The patient had an echocardiogram on 05/2023 that showed ejection fraction 55 to 60%, severe pulmonary hypertension, mild aortic stenosis. Currently she is receiving Lasix 40 mg IV every 8 hours. She is feeling better. She seems to be less short of breath. Oxygen requirements are at 3 L/min nasal cannula and this is the same oxygen flow to the patient requires on outpatient basis. She was also started on DuoNeb nebulized treatments [id number]. She was started on oral prednisone 40 mg p.o. daily regarding possibility of an underlying COPD exacerbation. Meanwhile, the viral panel has been negative including COVID-19, influenza and RSV. No altered mentation. No chest pain. No other complaints otherwise. Review of Systems Constitutional: Reports fatigue, Reports weakness Eyes: bilateral blurred vision, bilateral decreased vision, bilateral loss of peripheral vision, denies as per HPI, denies bulging eye, denies diplopia, denies discharge, denies dry eye, denies irritation, denies itching, denies pain, denies photophobia, denies loss of vision, denies tunnel vision/blind spots Ears: deny: decreased hearing, ear discharge, earache, tinnitus Ears, nose, mouth and throat: Reports as per HPI Breasts: absent: as per HPI, change in shape, gynecomastia, masses, nipple discharge, pain, skin changes, swelling Cardiovascular: Reports decreased exercise tolerance, Reports dyspnea on exertion Respiratory: Reports congestion, along with shortness of breath and exertional dyspnea and the patient is also complaining of orthopnea. Gastrointestinal: Reports as per HPI Genitourinary: Reports as per HPI Menstruation: Reports as per HPI Musculoskeletal: Reports as per HPI, Reports gait dysfunction, Reports muscle weakness, increased lower extremity edema. Musculoskeletal: absent: ankle pain, ankle stiffness, ankle swelling Integumentary: Reports as per HPI Neurological: Reports as per HPI Psychiatric: Reports as per HPI Endocrine: Reports as per HPI Hematologic/Lymphatic: Reports as per HPI Past Medical History Past Medical History: Atrial Fibrillation, Cancer, Heart Failure, COPD, Diabetes Mellitus, Eye Disorder, Hyperlipidemia, Hypertension, Osteoarthritis (OA), Pneumonia, Renal Disease, Seizure Disorder, Sleep Apnea/CPAP/BIPAP Additional Past Medical History / Comment(s): IDDM type II, neuropathy bilateral feet, past hematuria, CKD stage III, nephrolithiasis, chronic respiratory failure/home oxygen 3L/[place] ATC, bronchitis, R breast cancer x2 with lumpectomies/radiation, RACHEL/cpap used, spinal stenosis/chronic back pain, IBS, seizure x2 as a teen and one in 2009, bilateral macular degeneration/very poor vision, 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 Past Anesthesia/Blood Transfusion Reactions: No Reported Reaction, Motion Sickness Past Psychological History: Anxiety, Depression Additional Psychological History / Comment(s): Pt resides at [facility]. assisted living She has ambulates with assistance/walker but not much, mostly in electric wheelchair. She transfers herself. She has oxygen, nebulizer, glucometer. Smoking Status: Former smoker Past Alcohol Use History: None Reported Additional Past Alcohol Use History / Comment(s): Pt started smoking in 1957 and quit 15 year ago Past Drug Use History: None Reported - Past Family History Mother Additional Family Medical History / Comment(s): breast cancer Father Family Medical History: Cancer Additional Family Medical History / Comment(s): Prostate cancer. Medications and Allergies Home Medications Medication Instructions Recorded Confirmed Type Atorvastatin [Lipitor] 20 mg PO HS 07/15/14 02/16/24 History Latanoprost Ophth [Xalatan 0.005%] 1 drop BOTH EYES HS 01/28/21 02/16/24 History Montelukast [Singulair] 10 mg PO HS 01/28/21 02/16/24 History Roflumilast [Daliresp] 500 mcg PO DAILY 01/28/21 02/16/24 History Vit C/E/Zn/Coppr/Lutein/Zeaxan 1 cap PO BID 01/28/21 02/16/24 History [Preservision Areds 2 Softgel] Ipratropium-Albuterol Nebulize 3 ml INHALATION RT-QID 09/03/21 02/16/24 History [Duoneb 0.5 mg-3 mg/3 ml Soln] Insulin Lispro [humaLOG Kwikpen] See Protocol SQ AC-TID 07/23/22 02/16/24 History Cyanocobalamin (Vitamin B-12) 1,000 mcg PO DAILY 12/10/22 02/16/24 History [Vitamin B-12] Albuterol Sulfate [Albuterol 2 puff INHALATION RT-Q6H PRN 06/06/23 02/16/24 History Sulfate Hfa] Ammonium Lactate Lotion 1 applic TOPICAL BID 06/06/23 02/16/24 History [Lac-Hydrin 12% Lotion] Benzonatate [Tessalon Perle] 200 mg PO TID PRN 06/06/23 02/16/24 History Famotidine [Pepcid] 20 mg PO DAILY 06/06/23 02/16/24 History Insulin Glargine,Hum.rec.anlog 22 units SQ HS 06/06/23 02/16/24 History [Lantus Solostar Pen] Levothyroxine Sodium [Synthroid] 100 mcg PO AC-BRKFST 06/06/23 02/16/24 History Loperamide HCl [Imodium A-D] 2 - 4 mg PO Q8H PRN MDD 16mg 06/06/23 02/16/24 History Melatonin 10 mg PO HS PRN 06/06/23 02/16/24 History Metoprolol Tartrate [Lopressor] 75 mg PO TID 06/06/23 02/16/24 History amLODIPine [Norvasc] 2.5 mg PO DAILY 06/06/23 02/16/24 History Apixaban [Eliquis] 2.5 mg PO BID #60 tab 06/10/23 02/16/24 Rx Dapagliflozin Propanediol [Farxiga] 10 mg PO DAILY #30 tab 06/10/23 02/16/24 Rx Acetaminophen Tab [Tylenol] 650 mg PO Q4H PRN 08/29/23 02/16/24 History Fluticasone Nasal [place] [Flonase 1 spr EA NOSTRIL DAILY 08/29/23 02/16/24 History Nasal [place]] Olopatadine HCl [Patanol 0.1%] 1 drop BOTH EYES BID 08/29/23 02/16/24 History hydrALAZINE HCL [Apresoline] 25 mg PO TID 08/29/23 02/16/24 History hydrOXYzine HCL [Atarax] 50 mg PO DAILY PRN 08/29/23 02/16/24 History Ondansetron Odt [Zofran Odt] 4 mg PO Q8HR PRN #10 tab 11/11/23 02/16/24 Rx Acetaminophen Tab [Tylenol Tab] 500 mg PO Q8H PRN 02/16/24 02/16/24 History Calazinc Barrier Cream 1 applic TOPICAL DAILY PRN 02/16/24 02/16/24 History Diclofenac Sodium Gel [Voltaren 1% 2 gm TOPICAL BID PRN 02/16/24 02/16/24 History Gel] Furosemide [Lasix] 20 mg PO DAILY 02/16/24 02/16/24 History Furosemide [Lasix] 40 mg PO DAILY 02/16/24 02/16/24 History HYDROcodone/APAP 5-325MG [[place] 5] 1 tab PO BID PRN 02/16/24 02/16/24 History Lidocaine 5% Patch [Lidoderm] 1 patch TRANSDERM HS 02/16/24 02/16/24 History Nystatin 100,000 Unit/gm Powd 1 applic TOPICAL BID 02/16/24 02/16/24 History [Mycostatin Powder] Sennosides/Docusate Sodium [Senna 1 tab PO DAILY PRN 02/16/24 02/16/24 History Plus 8.6-50 mg Tablet] Sertraline [Zoloft] 100 mg PO DAILY 02/16/24 02/16/24 History Zinc Oxide [Cozima] 1 applic TOPICAL DAILY PRN 02/16/24 02/16/24 History Allergies Allergy/AdvReac Type Severity Reaction Status Date / Time adhesive tape Allergy Rash/Hives Verified 02/16/24 19:51 diclofenac sodium AdvReac pt states Verified 02/16/24 19:51 [From Voltaren] kidney failure Physical Exam Vitals: Vital Signs Temp Pulse Pulse Resp BP BP Pulse Ox 02/17/24 08:25 76 02/17/24 08:13 76 02/17/24 08:00 98.2 F 79 20 117/66 98 02/17/24 04:00 97.6 F 107 H 20 135/74 96 02/16/24 22:10 98.1 F 107 H 20 119/77 95 02/16/24 20:53 78 18 147/93 96 02/16/24 19:00 87 18 131/86 95 02/16/24 17:40 78 18 02/16/24 17:31 77 18 02/16/24 16:48 20 02/16/24 16:38 98.3 F 83 20 126/74 88 L Intake and Output 02/16/24 02/17/24 02/17/24 22:59 06:59 14:59 Intake Total 250 Balance 250 Intake: Oral 250 Other: Voiding Method Incontinent External Catheter Weight 91.138 kg GENERAL: The patient is currently on 3 L of oxygen nasal cannula,, com fortable, communicating and following commands and answering questions appropriately. Head exam was generally normal. There was no scleral icterus or corneal arcus. Mucous membranes were moist. EYES: Pupils equal. Conjunctiva normal. HEENT: External appearance of nose and ears normal, oral cavity grossly normal. NECK: JVD unable to assess; masses not palpable. HEART: First and second heart sounds are normal; so edema. LUNGS: Respiratory rate increased; but able to speak in full sentences, dim inished breath sounds or wheezing. The patient has crackles lung base bilaterally. ABDOMEN: Soft, nontender, liver spleen not palpable, no masses palpable. The patient has a large umbilical hernia in place which is reducible. PSYCH: Alert and oriented x3; mood and affect normal. MUSCULOSKELETAL:No Clubbing/cyanosis;muscles-grossly intact. OA, increased edema lower extremities bilaterally NEUROLOGICAL: Cranial nerves grossly intact; no facial asymmetry, power and sensation grossly intact. LYMPHATICS: No lymph nodes palpable in the axilla and neck Skin reveals a inverted area in the right breast along with a cystic structure that can be easily palpated over the right breast. Results - Laboratory Findings CBC and BMP: 02/16/24 17:24 02/16/24 17:24 PT/INR, D-dimer PT 11.8 sec (10.0-12.5) 02/16/24 17:24 INR 1.1 (<1.2) 02/16/24 17:24 Abnormal lab findings: Abnormal Labs 02/16/24 02/16/24 02/16/24 17:24 17:24 17:24 MCHC 30.9 L RDW 16.1 H APTT 30.7 H BUN 55 H Creatinine 2.34 H Glucose 123 H POC Glucose (mg/dL) AST 48 H Alkaline Phosphatase 249 H 02/16/24 02/17/24 22:27 05:45 MCHC RDW APTT BUN Creatinine Glucose POC Glucose (mg/dL) 212 H 272 H AST Alkaline Phosphatase - Diagnostic Findings Chest x-ray: image reviewed CT scan - chest: image reviewed Assessment and Plan Plan: Acute on chronic shortness of breath, multifactorial. Patient has a combination of COPD and CHF and some limited fluid overload contributing to her shortness of breath. The predominant decompensating factor however is CHF as the patient diffuse interstitial edema bilaterally has signs of fluid overload. The patient has an elevated proBNP level. The patient has chronic stage IV kidney disease. Chronic hypoxic respiratory failure the patient remains on 3 L of O2 nasal cannula. Severe COPD with an FEV1 of 40% of predicted Chronic systolic heart failure with an EF of around 30-35% and secondary pulmonary hypertension based on an earlier echocardiogram that was done in 2020. Subsequent echocardiogram from May 2023 showed improvement in the left medical ejection fraction essentially CHF with preserved LV function. Chronic stage IV kidney disease Chronic atrial fibrillation Obstructive sleep apnea maintenance CPAP therapy on outpatient basis, utilizing an APAP machine at the bedside pressures of 5/15 cm of water Hypertension Hyperlipidemia Diabetes mellitus type 2 Hypothyroidism Cervical spine stenosis Chronic gait dysfunction, Macular degeneration Obesity Large umbilical hernia Cystic breast structure involving the right breast History of bilateral breast cancer with bilateral lumpectomies followed by radiation therapy DNR/DNI CODE STATUS Plan The presentation is consistent with CHF. Will repeat echocardiogram. Will continue IV Lasix 40 mg every 8 hours. Restrict fluid intake. Monitor renal function. Monitor electrolytes. Continue DuoNeb updrafts. Discontinue prednisone for now. Cardiology consultation. Utilize CPAP machine overnight. Titrate oxygen flow to maintain saturation above 90%, currently on 3 L Resume home medication including anticoagulation with Eliquis 2.5 mg twice a day Synthroid resume Lopressor 75 mg 3 times daily Farxiga 10 mg p.o. daily Norvasc 10 mg p.o. daily Will continue to follow
[2024-02-17 17:06] LABS: Glucose,Whole Blood 317 mg/dL (70-110)
[2024-02-17] MEDS: hydrOXYzine HCL 25 MG TAB PO PRN (18:02)
--- NOTE | 2024-02-17 18:31 | P.PN ---
Subjective Progress Note Date: 02/17/24 (delayed charting seen at 1115) Patient is an 83-year-old female with a complex past medical history including diastolic congestive heart failure with ejection fraction 55 to 60%, severe pulmonary hypertension diabetes, A-fib anticoagulated with Eliquis, and advanced COPD on 3 L nasal cannula. In the emergency department she was diagnosed with acute exacerbation of congestive heart failure and acute exacerbation of COPD. She was started on Lasix, steroids, and bronchodilators. Cardiology and pulmonary were consulted. Patient seen and examined at bedside. Vital signs reviewed General: Nontoxic, no distress, appears at stated age Cardiovascular: S1S2 reg, no murmur Lungs: CTA bilateral, no rhonchi, no rales, no accessory muscle use Abdominal: Soft, nontender to palpation, no guarding Ext: No gross muscle atrophy, no edema b/l lower extremities, no contractures Neuro: CN II-XI grossly intact, no focal neuro deficits Psych: Alert, oriented, appropriate affect Assessment/Plan: Cute exacerbation of COPD Acute exacerbation of diastolic congestive heart failure Chronic hypoxic respiratory failure Severe pulmonary hypertension Loculated right-sided pleural effusion -Lasix 40 mg IV transition to every 12 hours, Farxiga 10 mg daily, metoprolol 75 mg 3 times daily, not on CARLOS ALBERTO or ARB secondary to severe CKD -Prednisone 40 mg daily, DuoNebs every 4 hours, albuterol every 4 hours as needed, Singulair 10 mg at night, leflunomide asked -Pulmonary hygiene -Pulm recs reviewed -cardio recs reviewed Diabetes mellitus type 2 -Sliding scale insulin which is what the patient uses at home -Follow blood sugars Chronic: CKD stage IV baseline creatinine 2.3 Atrial fibrillation Hypertension Dyslipidemia History of breast cancer Imaging: CT chest: Moderate partially loculated right-sided pleural effusion with adjacent compressive atelectasis, moderate to severe emphysematous changes Data Review: No new laboratory analysis available from today. DVT prophylaxis: Anticipated discharge date: Anticipated discharge place: This dictation was prepared using [employer] voice recognition software. Though every attempt is made to correct errors during dictation some may still exist. Objective - Vital Signs Vital signs: Vital Signs Temp 97.5 F L 02/17/24 16:00 Pulse 92 02/17/24 16:00 Resp 20 02/17/24 16:00 BP 142/77 02/17/24 16:00 Pulse Ox 94 L 02/17/24 16:00 FiO2 Intake & Output 02/16/24 02/17/24 02/17/24 18:59 06:59 18:59 Intake Total 250 360 Output Total 850 Balance 250 -490 Weight 90.718 kg 91.138 kg 91.138 kg Intake: Oral 250 360 Output: Urine 850 Other: Voiding Method Incontinent External Catheter # Voids 1 # Bowel Movements 1 - Labs CBC & Chem 7: 02/16/24 17:24 02/16/24 17:24 Labs: Abnormal Lab Results - Last 24 Hours (Table) 02/16/24 02/17/24 02/17/24 Range/Units 22:27 05:45 11:52 POC Glucose (mg/dL) 212 H 272 H 227 H (70-110) mg/dL 02/17/24 Range/Units 17:04 POC Glucose (mg/dL) 317 H (70-110) mg/dL
[2024-02-17] MEDS: FUROSEMIDE 10 MG/ML 4 ML VIAL IV SCH (20:23)
[2024-02-17] MEDS: MONTELUKAST 10 MG TAB PO SCH (20:23)
[2024-02-17] MEDS: MELATONIN 5 MG TABLET PO SCH (20:23)
[2024-02-17] MEDS: ATORVASTATIN 20 MG TAB PO SCH (20:23)
[2024-02-17] MEDS: ZINC OXIDE PASTE (Z-GUARD) 1 APPLIC TOPICAL PRN (20:24)
[2024-02-17 20:38] LABS: Glucose,Whole Blood 415 mg/dL (70-110)
[2024-02-17] MEDS: INSULIN DETEMIR (LEVEMIR) 100 UNIT/ML SYR SQ SCH (20:40)
[2024-02-17] MEDS ORDERED: NITROGLYCERIN OINT 1 INCH/GM PACKET TOPICAL SCH (22:00)
[2024-02-18] MEDS: LORazepam 2 MG/ML INJ IV STA (01:07)
[2024-02-18 06:08] LABS: Glucose,Whole Blood 173 mg/dL (70-110)
[2024-02-18 08:39] LABS: Anisocytosis Slight; HCT 34.5 % (34.0-46.0); HGB 10.4 gm/dL (11.4-16.0); Hypochromasia Marked; MCH 29.4 pg (25.0-35.0); MCHC 30.1 g/dL (31.0-37.0); MCV 97.8 fL (80.0-100.0); Macrocytosis Slight; Platelet Count 181 k/uL (150-450); RBC 3.52 m/uL (3.80-5.40); RDW 16.1 % (11.5-15.5); WBC 11.7 k/uL (3.8-10.6)
[2024-02-18] MEDS: DAPAGLIFLOZIN PROPANEDIOL 10 MG TABLET PO SCH (09:14)
[2024-02-18 11:10] LABS: African American GFR (CKD) 21 (>60 ml/min/1.73 sqM); Anion Gap 9 mmol/L; Blood Urea Nitrogen 67 mg/dL (7-17); Calcium 8.4 mg/dL (8.4-10.2); Carbon Dioxide 29 mmol/L (22-30); Chloride 101 mmol/L (98-107); Glucose 147 mg/dL (74-99); Magnesium 2.2 mg/dL (1.6-2.3); Non-African American GFR(CKD) 18 (>60 ml/min/1.73 sqM); Potassium 3.8 mmol/L (3.5-5.1); Sodium 139 mmol/L (137-145)
[2024-02-18 11:30] LABS: Glucose,Whole Blood 161 mg/dL (70-110)
--- NOTE | 2024-02-18 12:01 | P.PN ---
Subjective HISTORY OF PRESENT ILLNESS: This is a 83-year-old female with a past medical history significant for permanent atrial fibrillation, COPD on home oxygen, pulmonary hypertension, hypertension, hyperlipidemia, diabetes, and congestive heart failure. Patient follows in the office with Dr. Umanzor. We have been asked to see the patient in consultation for congestive heart failure. Patient examined at the bedside. Patient presented to the hospital with a chief complaint of shortness of breath and increased lower extremity edema. Patient states she has been wheezing for the past week. She states she has noticed increased lower extremity edema for the past 2 to 3 days. Patient denies any chest pain or pressure. She states that she tries to follow a low-sodium diet on an outpatient basis. She has been compliant with all of her medications. Vital signs are stable. Patient was found to be in acute CHF and was started on IV Lasix. DIAGNOSTICS: - EKG reveals atrial fibrillation with controlled ventricular rate. - Chest xray opacification over the spine in the posterior aspect of the lung seen in a few priors no cross-sectional imaging of this area has been performed since. Cardiomegaly and mild pulmonary vascular congestion. -CT chest: Moderate to severe pulmonary emphysematous changes, with mild interspersed groundglass densities which could reflect some air trapping or inflammation. Scattered areas of scarring and subsegmental atelectasis. Moderate sized partially loculated right pleural effusion with adjacent compressive atelectasis. Trace left pleural effusion. Moderate cardiomegaly. Mild coronary artery calcifications. Moderate to severe atherosclerotic calcifications of the aorta and branches. Enlarged pulmonary trunk, highly suggestive of pulmonary hypertension. Probable postoperative changes to the right breast. Small volume perihepatic ascites. - Laboratory data: WBC 8.2. Hemoglobin 11.6. Platelet count 157. Sodium 144. Potassium 4.0. BUN 55. Creatinine 2.34. Troponin negative x 1. proBNP 4420. - Current home cardiac medications include hydralazine 25 mg 3 times a day, metoprolol tartrate 75 mg 3 times a day, Lipitor 20 mg at night, amlodipine 2.5 mg daily, Lasix unknown dose as she has listed 40 mg in the morning and also 20 mg in the morning, and Eliquis 2.5 mg twice a day. - Most recent echocardiogram obtained in 05/2023 reveals EF 55-60%, severe pulmonary hypertension, mild 02/18/2024 Patient examined this morning. Patient denies chest pain or pressure. She reports improvement in her SOB. She also reports improvement in edema. She remains on IV lasix. Vital signs are stable. Most recent blood pressure 127/77. PHYSICAL EXAM: VITAL SIGNS: Reviewed. GENERAL: Well-developed in no acute distress. HEENT: Head is normocephalic. Pupils are equal, round. Sclerae anicteric. Mucous membranes of the mouth are moist. Neck supple. No JVD or thyromegaly LUNGS: Respirations even and unlabored. Lungs managed with bibasilar crackles HEART: Irregular rate and rhythm. S1 and S2 heard. ABDOMEN: Soft. Nondistended. Nontender. EXTREMITIES: Normal range of motion. No clubbing or cyanosis. Peripheral pulses intact. 2+ bilateral lower extremity edema NEUROLOGIC: Awake and alert. Oriented x 3. ASSESSMENT: Shortness of breath Acute on chronic heart failure with preserved EF Moderate sized partially loculated right pleural effusion Severe pulmonary hypertension Permanent atrial fibrillation COPD Chronic kidney disease Chronic hypoxic respiratory failure on home oxygen History of hypertension History of hyperlipidemia Diabetes Mild aortic stenosis PLAN: 2D echo ordered. Await results. Continue IV lasix 40mg IV Q 12 hours for an additional 24 hours Daily weights, accurate intake and output, and monitoring of kidney function Further recommendations pending patient course Anticipate discharge tomorrow if patient remains stable Nurse practitioner note has been reviewed by physician. Signing provider agrees with the documented findings, assessment, and plan of care documented by [employer] as a scribe. Objective - Vital Signs Vital signs: Vital Signs Temp 97.7 F 02/18/24 04:00 Pulse 80 02/18/24 08:33 Resp 18 02/18/24 04:00 BP 127/77 02/18/24 04:00 Pulse Ox 99 02/18/24 04:00 FiO2 Intake & Output 02/17/24 02/18/24 02/18/24 18:59 06:59 18:59 Intake Total 360 Output Total 850 1100 Balance -490 -1100 Weight 91.138 kg 92.1 kg Intake: Oral 360 Output: Urine 850 1100 Other: Voiding Method External Catheter External Catheter # Voids 1 1 # Bowel Movements 1 1 - Labs CBC & Chem 7: 02/18/24 08:02 02/18/24 08:02 Labs: Abnormal Lab Results - Last 24 Hours (Table) 02/17/24 02/17/24 02/17/24 Range/Units 11:52 17:04 20:35 WBC (3.8-10.6) k/uL RBC (3.80-5.40) m/uL Hgb (11.4-16.0) gm/dL MCHC (31.0-37.0) g/dL RDW (11.5-15.5) % POC Glucose (mg/dL) 227 H 317 H 415 H (70-110) mg/dL 02/18/24 02/18/24 Range/Units 06:06 08:02 WBC 11.7 H (3.8-10.6) k/uL RBC 3.52 L (3.80-5.40) m/uL Hgb 10.4 L (11.4-16.0) gm/dL MCHC 30.1 L (31.0-37.0) g/dL RDW 16.1 H (11.5-15.5) % POC Glucose (mg/dL) 173 H (70-110) mg/dL
--- NOTE | 2024-02-18 13:28 | CA ---
Transthoracic Echo Report Name: Preeti Orozco Age: 83 Gender: F : 1940 Exam Date: 02/17/2024 11:19 Exam Location: [facility] Ht (in): 65 Wt (lb): 200 Ordering Physician: Yuliet Faustin Attending/Referring Phys: [id number], Roxie Cash Van Salesperson Elicia Gil RCS Procedure CPT: Indications: LV function, CHF Cardiac Hx: Technical Quality: Technically difficult study Contrast 1: Definity Total Dose (mL): 2 Contrast 2: Total Dose (mL): MEASUREMENTS (Male / Female) Normal Values 2D ECHO LV Diastolic Diameter PLAX 5.2 cm 4.2 - 5.9 / 3.9 - 5.3 cm LV Systolic Diameter PLAX 3.6 cm IVS Diastolic Thickness 0.7 cm 0.6 - 1.0 / 0.6 - 0.9 cm LVPW Diastolic Thickness 0.7 cm 0.6 - 1.0 / 0.6 - 0.9 cm LV Relative Wall Thickness 0.3 RV Internal Dim ED PLAX 3.1 cm LVOT Diameter 2.0 cm LV Diastolic Volume MOD BP 79.0 cm??? 67 - 155 / 56 - 104 cm??? LV Systolic Volume MOD BP 38.1 cm??? 22 - 58 / 19 - 49 cm??? LV Ejection Fraction MOD BP 51.8 % >= 55 % LV Cardiac Index MOD BP 1599.1 cm???/min???m??? LV Diastolic Volume MOD 4C 79.5 cm??? LV Systolic Volume MOD 4C 36.3 cm??? LV Ejection Fraction MOD 4C 54.4 % LV Cardiac Index MOD 4C 1689.2 cm???/min???m??? LV Diastolic Length 4C 7.1 cm LV Systolic Length 4C 6.0 cm LV Diastolic Volume MOD 2C 77.0 cm??? LV Systolic Volume MOD 2C 38.6 cm??? LV Ejection Fraction MOD 2C 49.8 % LV Cardiac Index MOD 2C 1498.5 cm???/min???m??? LV Diastolic Length 2C 7.2 cm LV Systolic Length 2C 6.4 cm LA Volume 63.7 cm??? 18 - 58 / 22 - 52 cm??? LA Volume Index 30.7 cm???/m??? 16 - 28 cm???/m??? Ascending Aorta Diameter 3.1 cm DOPPLER AV Peak Velocity 168.1 cm/s AV Peak Gradient 11.3 mmHg AV Mean Velocity 108.1 cm/s AV Mean Gradient 5.6 mmHg AV Velocity Time Integral 34.4 cm LVOT Peak Velocity 128.3 cm/s LVOT Peak Gradient 6.6 mmHg LVOT Velocity Time Integral 24.0 cm LVOT Stroke Volume 73.9 cm??? LVOT Stroke Volume Index 37.4 ml/m??? LVOT Cardiac Index 2885.3 cm???/min???m??? AV Area Cont Eq vti 2.1 cm??? AV Area Cont Eq pk 2.4 cm??? TR Peak Velocity 215.5 cm/s TR Peak Gradient 18.6 mmHg Right Ventricular Systolic Press 33.6 mmHg PV Peak Velocity 80.1 cm/s PV Peak Gradient 2.6 mmHg FINDINGS Left Ventricle Left ventricular ejection fraction is estimated at 50-55 %. Mildly decreased left ventricular ejection fraction. Left ventricular cavity size normal. No obvious regional wall motion abnormalities. Right Ventricle Right ventricle not well visualized. Borderline increased right ventricular systolic pressure. Right Atrium Right atrium not well visualized. Left Atrium Mildly increased left atrial volume. Mildly increased left atrial area. Mitral Valve Mitral valve thickened. Mitral annular calcification. No mitral stenosis. No mitral regurgitation. Aortic Valve Aortic valve not well visualized. No aortic stenosis. No aortic regurgitation. Tricuspid Valve Structurally normal tricuspid valve. No tricuspid stenosis. Mild tricuspid regurgitation. Pulmonic Valve Pulmonic valve not well visualized. No pulmonic regurgitation. No pulmonic stenosis. Pericardium No pericardial effusion. Aorta Normal size aortic root and proximal ascending aorta. CONCLUSIONS Left ventricular ejection fraction is estimated at 50-55 %. No obvious regional wall motion abnormalities. Right ventricle not well visualized. RVSP 34 mmHg No significant valvular disfunction Previewed by: Dr Alejandro Radford (Electronically Signed) Final Date: 18 February 2024 13:27
[2024-02-18] MEDS: NON FORMULARY DRUG (Roflumilast [Daliresp] 500 MCG Tablet) PO SCH (14:28)
--- NOTE | 2024-02-18 14:38 | P.PN ---
Subjective Progress Note Date: 02/18/24 (delayed charting seen at 1020) Patient is an 83-year-old female with a complex past medical history including diastolic congestive heart failure with ejection fraction 55 to 60%, severe pulmonary hypertension diabetes, A-fib anticoagulated with Eliquis, and advanced COPD on 3 L nasal cannula. In the emergency department she was diagnosed with acute exacerbation of congestive heart failure and acute exacerbation of COPD. She was started on Lasix, steroids, and bronchodilators. Cardiology and pulmonary were consulted. She duriesed well. Patient seen and examined at bedside.Breathing is no better than yesterday but possibly better than at admission. Continues to have some shortness of breath. Hoping to go home. No other complaints at this time. Vital signs reviewed General: Nontoxic, no distress, appears at stated age Cardiovascular: S1S2 reg, no murmur Lungs: CTA bilateral, no rhonchi, no rales, no accessory muscle use Abdominal: Soft, nontender to palpation, no guarding Ext: No gross muscle atrophy, no edema b/l lower extremities, no contractures Neuro: CN II-XI grossly intact, no focal neuro deficits Psych: Alert, oriented, appropriate affect Assessment/Plan: Acute exacerbation of COPD Acute exacerbation of diastolic congestive heart failure, EF 50-55% Chronic hypoxic respiratory failure @ 3L Severe pulmonary hypertension Loculated right-sided pleural effusion -Lasix 40 mg IV t every 12 hours, Farxiga 10 mg daily, metoprolol 75 mg 3 times daily, not on CARLOS ALBERTO or ARB secondary to severe CKD -Prednisone 40 mg daily, DuoNebs every 4 hours, albuterol every 4 hours as needed, Singulair 10 mg at night, leflunomide asked -Pulmonary hygiene -Await further pulm recs -Cardiology note reviewed: Await 2D echo, continue IV Lasix for an additional 24 hours Diabetes mellitus type 2 -Sliding scale insulin which is what the patient uses at home -Follow blood sugars - A1c 7.3 Chronic: CKD stage IV baseline creatinine 2.3 Atrial fibrillation Hypertension Dyslipidemia History of breast cancer Imaging: Echocardiogram reviewed which shows ejection fraction 50 to 55% RVSP 34, right ventricle not well-visualized. Prior imaging CT chest: Moderate partially loculated right-sided pleural effusion with neville cent compressive atelectasis, moderate to severe emphysematous changes Data Review: Labs reviewed from today include CBC and basic metabolic profile which are remarkable for white blood cell count 11.7, BUN 67, creatinine 2.4, A1c 7.3 DVT prophylaxis: Anticipated discharge date: Anticipated discharge place: This dictation was prepared using [employer] voice recognition software. Though every attempt is made to correct errors during dictation some may still exist. Objective - Vital Signs Vital signs: Vital Signs Temp 97.7 F 02/18/24 12:00 Pulse 80 02/18/24 14:00 Resp 18 02/18/24 14:00 BP 120/71 02/18/24 12:00 Pulse Ox 99 02/18/24 12:00 FiO2 Intake & Output 02/17/24 02/18/24 02/18/24 18:59 06:59 18:59 Intake Total 360 236 Output Total 850 1100 Balance -490 -1100 236 Weight 91.138 kg 92.1 kg Intake: Oral 360 236 Output: Urine 850 1100 Other: Voiding Method External Catheter External Catheter External Catheter # Voids 1 1 # Bowel Movements 1 1 - Labs CBC & Chem 7: 02/18/24 08:02 02/18/24 08:02 Labs: Abnormal Lab Results - Last 24 Hours (Table) 02/17/24 02/17/24 02/18/24 Range/Units 17:04 20:35 06:06 WBC (3.8-10.6) k/uL RBC (3.80-5.40) m/uL Hgb (11.4-16.0) gm/dL MCHC (31.0-37.0) g/dL RDW (11.5-15.5) % BUN (7-17) mg/dL Creatinine (0.52-1.04) mg/dL Glucose (74-99) mg/dL POC Glucose (mg/dL) 317 H 415 H 173 H (70-110) mg/dL Hemoglobin A1c (<=6.0) % 02/18/24 02/18/24 02/18/24 Range/Units 08:02 08:02 08:02 WBC 11.7 H (3.8-10.6) k/uL RBC 3.52 L (3.80-5.40) m/uL Hgb 10.4 L (11.4-16.0) gm/dL MCHC 30.1 L (31.0-37.0) g/dL RDW 16.1 H (11.5-15.5) % BUN 67 H (7-17) mg/dL Creatinine 2.40 H (0.52-1.04) mg/dL Glucose 147 H (74-99) mg/dL POC Glucose (mg/dL) (70-110) mg/dL Hemoglobin A1c 7.3 H (<=6.0) % 02/18/24 Range/Units 11:28 WBC (3.8-10.6) k/uL RBC (3.80-5.40) m/uL Hgb (11.4-16.0) gm/dL MCHC (31.0-37.0) g/dL RDW (11.5-15.5) % BUN (7-17) mg/dL Creatinine (0.52-1.04) mg/dL Glucose (74-99) mg/dL POC Glucose (mg/dL) 161 H (70-110) mg/dL Hemoglobin A1c (<=6.0) %
--- NOTE | 2024-02-18 15:34 | P.PN ---
Subjective Progress Note Date: 02/18/24 This is a 83-year-old female patient presented to the hospital because of short ness of breath. The patient has seen us in the office and the patient is oxygen dependent COPD with chronic hypoxic respiratory failure and she is O2 dependent. Her based on FEV1 is in order of 40% of predicted. She has also other comorbidities including CHF and based on echocardiogram that was done back in 2020, the patient ejection fraction of 30-35% and moderate concentric LVH and mild pulmonary hypertension with a PA pressure of 44 mmHg. She is maintained on oxygen at 3 L/m nasal cannula daily basis. She has also issues with diabetes mellitus, hypertension, spinal stenosis, ventral hernia, acid reflux, headaches, depression, spinal stenosis, and history of breast cancer and she was had previous lumpectomies and radiation therapy, seizure disorder, macular degeneration and the patient has impaired vision and obstructive sleep apnea and she has used CPAP therapy in the past. She has also issues with chronic kidney disease, stage III chronic kidney failure, a chest fibrillation, and osteoarthritis. . The patient is coming to the hospital because of worsening shortness of breath. The patient also had increased edema lower extremities bilaterally. EKG showed a atrial fibrillation rhythm with a controlled rate. The chest x-ray shows cardiomegaly and pulm venous congestion consistent with CHF. CAT scan of the chest showed moderate to severe emphysematous changes steve aterally. There is also widespread groundglass densities bilaterally consistent with CHF. There is also a small right-sided pleural effusion along with compressive atelectasis in the right lung base and cardiomegaly and coronary artery calcifications. The patient had a blood work that showed a WBC count of 8.2, hemoglobin 11.6 and a platelet count of 157. BUN is 55 with a creatinine of 2.34 as the patient has chronic stage IV kidney disease. proBNP level was 4420 and a troponin was negative. The patient had an echocardiogram on 05/2023 that showed ejection fraction 55 to 60%, severe pulmonary hypertension, mild aortic stenosis. Currently she is receiving Lasix 40 mg IV every 8 hours. She is feeling better. She seems to be less short of breath. Oxygen requirements are at 3 L/min nasal cannula and this is the same oxygen flow to the patient requires on outpatient basis. She was also started on DuoNeb nebulized treatments [id number]. She was started on oral prednisone 40 mg p.o. daily regarding possibility of an underlying COPD exacerbation. Meanwhile, the viral panel has been negative including COVID-19, influenza and RSV. No altered mentation. No chest pain. No other complaints otherwise. On today's evaluation of 02/18/2024, I am seeing this patient for a follow-up. The patient is being seen for shortness of breath that was attributed to a combination of COPD and CHF exacerbation. She is feeling slightly improved compared to yesterday. She remains on bronchodilators and steroids. She is on prednisone burst taper starting with 40 mg p.o. daily. The patient is also on IV Lasix 40 mg every 12 hours. The fluid balance is -1.5 L over the past 24 hours. The labs showed WC count of 11.7 with a hemoglobin 10.3 and a platelet count of 181. BUN is 16 with a creatinine of 2.4 which is essentially stable compared to yesterday. Sodium level is at 139. The viral screen has been negative and the patient remains on oxygen at 3 L with a pulse ox of 99%. No other significant events. She is awake and alert and responsive. He is profoundly weak. Objective - Vital Signs Vital signs: Vital Signs Temp 97.7 F 02/18/24 04:00 Pulse 80 02/18/24 08:33 Resp 18 02/18/24 04:00 BP 127/77 02/18/24 04:00 Pulse Ox 99 02/18/24 04:00 FiO2 Intake & Output 02/17/24 02/18/24 02/18/24 18:59 06:59 18:59 Intake Total 360 236 Output Total 850 1100 Balance -490 -1100 236 Weight 91.138 kg 92.1 kg Intake: Oral 360 236 Output: Urine 850 1100 Other: Voiding Method External Catheter External Catheter # Voids 1 1 # Bowel Movements 1 1 - Exam GENERAL: The patient is currently on 3 L of oxygen nasal cannula,, comfortable, communicating and following commands and answering questions appropriately. Head exam was generally normal. There was no scleral icterus or corneal arcus. Mucous membranes were moist. EYES: Pupils equal. Conjunctiva normal. HEENT: External appearance of nose and ears normal, oral cavity grossly normal. NECK: JVD unable to assess; masses not palpable. HEART: First and second heart sounds are normal; so edema. LUNGS: Respiratory rate increased; but able to speak in full sentences, diminished breath sounds or wheezing. The patient has crackles lung base bilaterally. ABDOMEN: Soft, nontender, liver spleen not palpable, no masses palpable. The p atient has a large umbilical hernia in place which is reducible. PSYCH: Alert and oriented x3; mood and affect normal. MUSCULOSKELETAL:No Clubbing/cyanosis;muscles-grossly intact. OA, increased e janis lower extremities bilaterally NEUROLOGICAL: Cranial nerves grossly intact; no facial asymmetry, power and sensation grossly intact. LYMPHATICS: No lymph nodes palpable in the axilla and neck Skin reveals a inverted area in the right breast along with a cystic structure that can be easily palpated over the right breast. - Labs CBC & Chem 7: 02/18/24 08:02 02/18/24 08:02 Labs: Abnormal Lab Results - Last 24 Hours (Table) 02/17/24 02/17/24 02/17/24 Range/Units 11:52 17:04 20:35 WBC (3.8-10.6) k/uL RBC (3.80-5.40) m/uL Hgb (11.4-16.0) gm/dL MCHC (31.0-37.0) g/dL RDW (11.5-15.5) % POC Glucose (mg/dL) 227 H 317 H 415 H (70-110) mg/dL 02/18/24 02/18/24 Range/Units 06:06 08:02 WBC 11.7 H (3.8-10.6) k/uL RBC 3.52 L (3.80-5.40) m/uL Hgb 10.4 L (11.4-16.0) gm/dL MCHC 30.1 L (31.0-37.0) g/dL RDW 16.1 H (11.5-15.5) % POC Glucose (mg/dL) 173 H (70-110) mg/dL Assessment and Plan Plan: Acute on chronic shortness of breath, multifactorial. Patient has a combination of COPD and CHF and some limited fluid overload contributing to her shortness of breath. The predominant decompensating factor however is CHF as the patient diffuse interstitial edema bilaterally has signs of fluid overload. The patient has an elevated proBNP level. The patient has chronic stage IV kidney disease. Chronic hypoxic respiratory failure the patient remains on 3 L of O2 nasal cannula. Severe COPD with an FEV1 of 40% of predicted Chronic systolic heart failure with an EF of around 30-35% and secondary pulmonary hypertension based on an earlier echocardiogram that was done in 2020. Subsequent echocardiogram from May 2023 showed improvement in the left medical ejection fraction essentially CHF with preserved LV function. Repeat echocardiogram shows a preserved function with an EF of around 50 to 55% without any valvular abnormalities. Chronic stage IV kidney disease Chronic atrial fibrillation Obstructive sleep apnea maintenance CPAP therapy on outpatient basis, utilizing an APAP machine at the bedside pressures of 5/15 cm of water Hypertension Hyperlipidemia Diabetes mellitus type 2 Hypothyroidism Cervical spine stenosis Chronic gait dysfunction, Macular degeneration Obesity Large umbilical hernia Cystic breast structure involving the right breast History of bilateral breast cancer with bilateral lumpectomies followed by radiation therapy DNR/DNI CODE STATUS Plan The presentation is consistent with CHF. The patient is currently on Lasix 40 mg every 12 hours and the fluid balance is -1.5 L over the past 24 hours Will repeat echocardiogram. Echocardiogram was repeated during this current admission and the patient has a preserved LV function with an EF of around 50 to 55% and no wall motion abnormalities. RV was not adequately visualized and the RVSP was 34 mmHg. No significant valvular abnormalities. Will continue IV Lasix 40 mg every 12 hours. Restrict fluid intake. Monitor renal function. Monitor electrolytes. Continue DuoNeb updrafts. Discontinue prednisone for now. Cardiology consultation. Utilize CPAP machine overnight. Titrate oxygen flow to maintain saturation above 90%, currently on 3 L Resume home medication including anticoagulation with Eliquis 2.5 mg twice a day Synthroid resume Lopressor 75 mg 3 times daily Farxiga 10 mg p.o. daily Norvasc 10 mg p.o. daily Will continue to follow
[2024-02-18 16:40] LABS: Glucose,Whole Blood 371 mg/dL (70-110)
[2024-02-18 19:56] LABS: Glucose,Whole Blood 413 mg/dL (70-110)
[2024-02-18] MEDS: HYDROcodone/APAP 5-325MG 1 EACH TAB PO PRN (21:49)
[2024-02-18] MEDS: ZOLPIDEM 5 MG TAB PO ONE (22:07)
[2024-02-18 23:46] LABS: Glucose,Whole Blood 417 mg/dL (70-110)
[2024-02-18] MEDS: INSULIN ASPART (NovoLOG) 100 UNIT/ML VIAL SQ ONE (23:54)
[2024-02-19 02:01] LABS: Glucose,Whole Blood 359 mg/dL (70-110)
[2024-02-19] MEDS: INSULIN ASPART (NovoLOG) 100 UNIT/ML VIAL SQ ONE (02:15)
[2024-02-19 04:54] LABS: Glucose,Whole Blood 209 mg/dL (70-110)
[2024-02-19 05:45] LABS: Glucose,Whole Blood 163 mg/dL (70-110)
[2024-02-19 09:25] VITALS: BP 118/65; RESP 18; TEMP 97.9
[2024-02-19 10:00] VITALS: PULSE 76
--- NOTE | 2024-02-19 10:06 | P.PN ---
Subjective HISTORY OF PRESENT ILLNESS: This is a 83-year-old female with a past medical history significant for permanent atrial fibrillation, COPD on home oxygen, pulmonary hypertension, hypertension, hyperlipidemia, diabetes, and congestive heart failure. Patient follows in the office with Dr. Umanzor. We have been asked to see the patient in consultation for congestive heart failure. Patient examined at the bedside. Patient presented to the hospital with a chief complaint of shortness of breath and increased lower extremity edema. Patient states she has been wheezing for the past week. She states she has noticed increased lower extremity edema for the past 2 to 3 days. Patient denies any chest pain or pressure. She states that she tries to follow a low-sodium diet on an outpatient basis. She has been compliant with all of her medications. Vital signs are stable. Patient was found to be in acute CHF and was started on IV Lasix. DIAGNOSTICS: - EKG reveals atrial fibrillation with controlled ventricular rate. - Chest xray opacification over the spine in the posterior aspect of the lung seen in a few priors no cross-sectional imaging of this area has been performed since. Cardiomegaly and mild pulmonary vascular congestion. -CT chest: Moderate to severe pulmonary emphysematous changes, with mild interspersed groundglass densities which could reflect some air trapping or inflammation. Scattered areas of scarring and subsegmental atelectasis. Moderate sized partially loculated right pleural effusion with adjacent compressive atelectasis. Trace left pleural effusion. Moderate cardiomegaly. Mild coronary artery calcifications. Moderate to severe atherosclerotic calcifications of the aorta and branches. Enlarged pulmonary trunk, highly suggestive of pulmonary hypertension. Probable postoperative changes to the right breast. Small volume perihepatic ascites. - Laboratory data: WBC 8.2. Hemoglobin 11.6. Platelet count 157. Sodium 144. Potassium 4.0. BUN 55. Creatinine 2.34. Troponin negative x 1. proBNP 4420. - Current home cardiac medications include hydralazine 25 mg 3 times a day, metoprolol tartrate 75 mg 3 times a day, Lipitor 20 mg at night, amlodipine 2.5 mg daily, Lasix unknown dose as she has listed 40 mg in the morning and also 20 mg in the morning, and Eliquis 2.5 mg twice a day. - Most recent echocardiogram obtained in 05/2023 reveals EF 55-60%, severe pulmonary hypertension, mild 02/18/2024 Patient examined this morning. Patient denies chest pain or pressure. She reports improvement in her SOB. She also reports improvement in edema. She remains on IV lasix. Vital signs are stable. Most recent blood pressure 127/77. 02/19/2024 Patient examined this morning at the bedside. Patient denies chest pain or pressure. She reports improvement in her shortness of breath. Echocardiogram completed revealing ejection fraction 50 to 55% with no significant valvular dysfunction noted. Patient remains on IV Lasix 40 mg every 12 hours. PHYSICAL EXAM: VITAL SIGNS: Reviewed. GENERAL: Well-developed in no acute distress. HEENT: Head is normocephalic. Pupils are equal, round. Sclerae anicteric. Mucous membranes of the mouth are moist. Neck supple. No JVD or thyromegaly LUNGS: Respirations even and unlabored. Lungs diminished with mild wheezing HEART: Irregular rate and rhythm. S1 and S2 heard. ABDOMEN: Soft. Nondistended. Nontender. EXTREMITIES: Normal range of motion. No clubbing or cyanosis. Peripheral pulses intact. 1+ bilateral lower extremity edema NEUROLOGIC: Awake and alert. Oriented x 3. ASSESSMENT: Shortness of breath Acute on chronic heart failure with preserved EF Moderate sized partially loculated right pleural effusion Severe pulmonary hypertension Permanent atrial fibrillation COPD Chronic kidney disease Chronic hypoxic respiratory failure on home oxygen History of hypertension History of hyperlipidemia Diabetes Mild aortic stenosis PLAN: Discontinue IV Lasix. Transition to oral Lasix today 40mg BID Daily weights, accurate intake and output, and monitoring of kidney function Further recommendations pending patient course Anticipate discharge home this afternoon Patient to follow up post discharge Nurse practitioner note has been reviewed by physician. Signing provider agrees with the documented findings, assessment, and plan of care documented by TOY PACKER as a scribe. Objective - Vital Signs Vital signs: Vital Signs Temp 97.9 F 02/19/24 09:17 Pulse 78 02/19/24 09:22 Resp 18 02/19/24 09:17 BP 118/65 02/19/24 09:17 Pulse Ox 96 02/19/24 09:23 FiO2 Intake & Output 02/18/24 02/19/24 02/19/24 18:59 06:59 18:59 Intake Total 354 10 240 Output Total 700 1400 Balance -346 -1390 240 Weight 98.1 kg Intake: IV 10 Invasive Line 1 10 Oral 354 240 Output: Urine 700 1400 Other: Voiding Method External Catheter Bedside Commode External Catheter # Voids 1 # Bowel Movements 1 - Labs CBC & Chem 7: 02/18/24 08:02 02/18/24 08:02 Labs: Abnormal Lab Results - Last 24 Hours (Table) 02/18/24 02/18/24 02/18/24 Range/Units 08:02 08:02 11:28 BUN 67 H (7-17) mg/dL Creatinine 2.40 H (0.52-1.04) mg/dL Glucose 147 H (74-99) mg/dL POC Glucose (mg/dL) 161 H (70-110) mg/dL Hemoglobin A1c 7.3 H (<=6.0) % 02/18/24 02/18/24 02/18/24 Range/Units 16:35 19:50 23:45 BUN (7-17) mg/dL Creatinine (0.52-1.04) mg/dL Glucose (74-99) mg/dL POC Glucose (mg/dL) 371 H 413 H 417 H (70-110) mg/dL Hemoglobin A1c (<=6.0) % 02/19/24 02/19/24 02/19/24 Range/Units 01:58 04:53 05:43 BUN (7-17) mg/dL Creatinine (0.52-1.04) mg/dL Glucose (74-99) mg/dL POC Glucose (mg/dL) 359 H 209 H 163 H (70-110) mg/dL Hemoglobin A1c (<=6.0) %
[2024-02-19 10:18] LABS: African American GFR (CKD) 23 (>60 ml/min/1.73 sqM); Anion Gap 10 mmol/L; Blood Urea Nitrogen 79 mg/dL (7-17); Calcium 8.1 mg/dL (8.4-10.2); Carbon Dioxide 29 mmol/L (22-30); Chloride 98 mmol/L (98-107); Glucose 314 mg/dL (74-99); Magnesium 2.1 mg/dL (1.6-2.3); Non-African American GFR(CKD) 20 (>60 ml/min/1.73 sqM); Potassium 3.9 mmol/L (3.5-5.1); Sodium 137 mmol/L (137-145)
--- NOTE | 2024-02-19 11:10 | P.DS ---
Providers Date of admission: 02/17/24 12:20 Expected date of discharge: 02/19/24 Attending physician: Daren Coe MD Consults: 02/16/24 19:47 Consult Physician Routine Consulting Provider: Marcelino Santiago Consult Reason/Comments: chf Do you want consulting provider notified?: Yes 02/17/24 03:27 Consult Physician Routine Consulting Provider: Jossue Portillo Consult Reason/Comments: vague opacity on chest xray posterior lung Do you want consulting provider notified?: Yes, Notify in am Primary care physician: Stu Ring MD Hospital Course: Discharge Diagnosis: Acute exacerbation of COPD Acute exacerbation of diastolic congestive heart failure, EF 50-55% Chronic hypoxic respiratory failure @ 3L Severe pulmonary hypertension Loculated right-sided pleural effusion Diabetes mellitus type 2 Hospital Course: Patient is an 83-year-old female with a complex past medical history including diastolic congestive heart failure with ejection fraction 55 to 60%, severe pulmonary hypertension diabetes, A-fib anticoagulated with Eliquis, and advanced COPD on 3 L nasal cannula. In the emergency department she was diagnosed with acute exacerbation of congestive heart failure and acute exacerbation of COPD. She was started on IV Lasix, steroids, and bronchodilators. Cardiology and pulmonary were consulted. Echocardiogram reviewed which shows ejection fraction 50 to 55% RVSP 34, right ventricle not well-visualized. CT chest: Moderate partially loculated right-sided pleural effusion with adjacent compressive atelectasis, moderate to severe emphysematous changes. She duriesed well with IV Lasix. Patient back to her baseline 3 L nasal cannula. Able to transfer out of the bed and chair into her wheelchair, which is at her baseline. Follow-up with pulmonology and cardiology outpatient Patient seen and examined at bedside. Vital signs reviewed and stable. General: Nontoxic, no distress, appears at stated age Derm: Warm, dry Head: Atraumatic, normocephalic, symmetric Eyes: EOMI, no lid lag, anicteric sclera Mouth: No lip lesion, mucus membranes moist Cardiovascular: S1S2 reg, no murmur Lungs: Bibasilar rales, no accessory muscle use, supplemental oxygen Abdominal: Soft, nontender to palpation, no guarding, no appreciable organomegaly Ext: No gross muscle atrophy, no edema, no contractures Neuro: CN II-XI grossly intact, no focal neuro deficits Psych: Alert, oriented, appropriate affect A total of 33 minutes of time were spent preparing this complex discharge summary. Patient was discharged on 02/19/2024 at 1110. Patient Condition at Discharge: Stable Plan - Discharge Summary Discharge Rx Participant: Yes New Discharge Prescriptions: New predniSONE [Deltasone] 40 mg PO DAILY #4 tab Furosemide [Lasix] 40 mg PO BID@0900,1600 #90 tab Continue Atorvastatin [Lipitor] 20 mg PO HS Montelukast [Singulair] 10 mg PO HS Vit C/E/Zn/Coppr/Lutein/Zeaxan [Preservision Areds 2 Softgel] 1 cap PO BID Latanoprost Ophth [Xalatan 0.005%] 1 drop BOTH EYES HS Roflumilast [Daliresp] 500 mcg PO DAILY Insulin Lispro [humaLOG Kwikpen] See Protocol SQ AC-TID Cyanocobalamin (Vitamin B-12) [Vitamin B-12] 1,000 mcg PO DAILY Benzonatate [Tessalon Perle] 200 mg PO TID PRN PRN Reason: Cough Famotidine [Pepcid] 20 mg PO DAILY Insulin Glargine,Hum.rec.anlog [Lantus Solostar Pen] 22 units SQ HS Loperamide HCl [Imodium A-D] 2 - 4 mg PO Q8H PRN MDD 16mg PRN Reason: Diarrhea Melatonin 10 mg PO HS PRN PRN Reason: Insomnia Metoprolol Tartrate [Lopressor] 75 mg PO TID Apixaban [Eliquis] 2.5 mg PO BID #60 tab Acetaminophen Tab [Tylenol] 650 mg PO Q4H PRN PRN Reason: Pain hydrALAZINE HCL [Apresoline] 25 mg PO TID hydrOXYzine HCL [Atarax] 50 mg PO DAILY PRN PRN Reason: Severe Anxiety Olopatadine HCl [Patanol 0.1%] 1 drop BOTH EYES BID Acetaminophen Tab [Tylenol] 500 mg PO Q8H PRN PRN Reason: Pain Diclofenac Sodium Gel [Voltaren 1% Gel] 2 gm TOPICAL BID PRN PRN Reason: lower back pain Sertraline [Zoloft] 100 mg PO DAILY Ipratropium-Albuterol Nebulize [Duoneb 0.5 mg-3 mg/3 ml Soln] 3 ml INHALATION RT-QID Albuterol Sulfate [Albuterol Sulfate Hfa] 2 puff INHALATION RT-Q6H PRN PRN Reason: Shortness Of Breath amLODIPine [Norvasc] 2.5 mg PO DAILY Ammonium Lactate Lotion [Lac-Hydrin 12% Lotion] 1 applic TOPICAL BID Levothyroxine Sodium [Synthroid] 100 mcg PO AC-BRKFST Dapagliflozin Propanediol [Farxiga] 10 mg PO DAILY #30 tab Fluticasone Nasal Shock [Flonase Nasal Shock] 1 spr EA NOSTRIL DAILY Ondansetron Odt [Zofran ODT] 4 mg PO Q8HR PRN #10 tab PRN Reason: Nausea Calazinc Barrier Cream 1 applic TOPICAL DAILY PRN PRN Reason: excoriation on buttocks HYDROcodone/APAP 5-325MG [Bolivar 5-325] 1 tab PO BID PRN PRN Reason: Pain Lidocaine 5% Patch [Lidoderm 5% Patch] 1 patch TRANSDERM HS Nystatin 100,000 Unit/gm Powd [Mycostatin Powder] 1 applic TOPICAL BID Sennosides/Docusate Sodium [Senna Plus 8.6-50 mg Tablet] 1 tab PO DAILY PRN PRN Reason: Constipation Zinc Oxide [Cozima] 1 applic TOPICAL DAILY PRN PRN Reason: inside right heel Discontinued Furosemide [Lasix] 40 mg PO DAILY Furosemide [Lasix] 20 mg PO DAILY Discharge Medication List Atorvastatin [Lipitor] 20 mg PO HS 07/15/14 [History] Latanoprost Ophth [Xalatan 0.005%] 1 drop BOTH EYES HS 01/28/21 [History] Montelukast [Singulair] 10 mg PO HS 01/28/21 [History] Roflumilast [Daliresp] 500 mcg PO DAILY 01/28/21 [History] Vit C/E/Zn/Coppr/Lutein/Zeaxan [Preservision Areds 2 Softgel] 1 cap PO BID 01/28/21 [History] Ipratropium-Albuterol Nebulize [Duoneb 0.5 mg-3 mg/3 ml Soln] 3 ml INHALATION RT-QID 09/03/21 [History] Insulin Lispro [humaLOG Kwikpen] See Protocol SQ AC-TID 07/23/22 [History] Cyanocobalamin (Vitamin B-12) [Vitamin B-12] 1,000 mcg PO DAILY 12/10/22 [History] Albuterol Sulfate [Albuterol Sulfate Hfa] 2 puff INHALATION RT-Q6H PRN 06/06/23 [History] Ammonium Lactate Lotion [Lac-Hydrin 12% Lotion] 1 applic TOPICAL BID 06/06/23 [History] Benzonatate [Tessalon Perle] 200 mg PO TID PRN 06/06/23 [History] Famotidine [Pepcid] 20 mg PO DAILY 06/06/23 [History] Insulin Glargine,Hum.rec.anlog [Lantus Solostar Pen] 22 units SQ HS 06/06/23 [History] Levothyroxine Sodium [Synthroid] 100 mcg PO AC-BRKFST 06/06/23 [History] Loperamide HCl [Imodium A-D] 2 - 4 mg PO Q8H PRN MDD 16mg 06/06/23 [History] Melatonin 10 mg PO HS PRN 06/06/23 [History] Metoprolol Tartrate [Lopressor] 75 mg PO TID 06/06/23 [History] amLODIPine [Norvasc] 2.5 mg PO DAILY 06/06/23 [History] Apixaban [Eliquis] 2.5 mg PO BID #60 tab 06/10/23 [Rx] Dapagliflozin Propanediol [Farxiga] 10 mg PO DAILY #30 tab 06/10/23 [Rx] Acetaminophen Tab [Tylenol] 650 mg PO Q4H PRN 08/29/23 [History] Fluticasone Nasal Shock [Flonase Nasal Shock] 1 spr EA NOSTRIL DAILY 08/29/23 [History] Olopatadine HCl [Patanol 0.1%] 1 drop BOTH EYES BID 08/29/23 [History] hydrALAZINE HCL [Apresoline] 25 mg PO TID 08/29/23 [History] hydrOXYzine HCL [Atarax] 50 mg PO DAILY PRN 08/29/23 [History] Ondansetron Odt [Zofran ODT] 4 mg PO Q8HR PRN #10 tab 11/11/23 [Rx] Acetaminophen Tab [Tylenol] 500 mg PO Q8H PRN 02/16/24 [History] Calazinc Barrier Cream 1 applic TOPICAL DAILY PRN 02/16/24 [History] Diclofenac Sodium Gel [Voltaren 1% Gel] 2 gm TOPICAL BID PRN 02/16/24 [History] HYDROcodone/APAP 5-325MG [Bolivar 5-325] 1 tab PO BID PRN 02/16/24 [History] Lidocaine 5% Patch [Lidoderm 5% Patch] 1 patch TRANSDERM HS 02/16/24 [History] Nystatin 100,000 Unit/gm Powd [Mycostatin Powder] 1 applic TOPICAL BID 02/16/24 [History] Sennosides/Docusate Sodium [Senna Plus 8.6-50 mg Tablet] 1 tab PO DAILY PRN 02/16/24 [History] Sertraline [Zoloft] 100 mg PO DAILY 02/16/24 [History] Zinc Oxide [Cozima] 1 applic TOPICAL DAILY PRN 02/16/24 [History] Furosemide [Lasix] 40 mg PO BID@0900,1600 #90 tab 02/19/24 [Rx] predniSONE [Deltasone] 40 mg PO DAILY #4 tab 02/19/24 [Rx] Follow up Appointment(s)/Referral(s): Stu Ring MD [Primary Care Provider] - 1-2 days Rodriguez Evangelista MD [STAFF PHYSICIAN] - 1 Week Alejandro Radford MD [Medical Doctor] - 1 Week Patient Instructions/Handouts: COPD (Chronic Obstructive Pulmonary Disease) (DC), Heart Failure (DC) Activity/Diet/Wound Care/Special Instructions: [facility] [phone] Discharge Disposition: OTHER INSTITUTION NOT DEFINED
[2024-02-19 11:34] LABS: Glucose,Whole Blood 339 mg/dL (70-110)
--- NOTE | 2024-02-19 13:19 | P.PN ---
Subjective Progress Note Date: 02/19/24 This is a 83-year-old female patient presented to the hospital because of short ness of breath. The patient has seen us in the office and the patient is oxygen dependent COPD with chronic hypoxic respiratory failure and she is O2 dependent. Her based on FEV1 is in order of 40% of predicted. She has also other comorbidities including CHF and based on echocardiogram that was done back in 2020, the patient ejection fraction of 30-35% and moderate concentric LVH and mild pulmonary hypertension with a PA pressure of 44 mmHg. She is maintained on oxygen at 3 L/m nasal cannula daily basis. She has also issues with diabetes mellitus, hypertension, spinal stenosis, ventral hernia, acid reflux, headaches, depression, spinal stenosis, and history of breast cancer and she was had previous lumpectomies and radiation therapy, seizure disorder, macular degeneration and the patient has impaired vision and obstructive sleep apnea and she has used CPAP therapy in the past. She has also issues with chronic kidney disease, stage III chronic kidney failure, a chest fibrillation, and osteoarthritis. . The patient is coming to the hospital because of worsening shortness of breath. The patient also had increased edema lower extremities bilaterally. EKG showed a atrial fibrillation rhythm with a controlled rate. The chest x-ray shows cardiomegaly and pulm venous congestion consistent with CHF. CAT scan of the chest showed moderate to severe emphysematous changes steve aterally. There is also widespread groundglass densities bilaterally consistent with CHF. There is also a small right-sided pleural effusion along with compressive atelectasis in the right lung base and cardiomegaly and coronary artery calcifications. The patient had a blood work that showed a WBC count of 8.2, hemoglobin 11.6 and a platelet count of 157. BUN is 55 with a creatinine of 2.34 as the patient has chronic stage IV kidney disease. proBNP level was 4420 and a troponin was negative. The patient had an echocardiogram on 05/2023 that showed ejection fraction 55 to 60%, severe pulmonary hypertension, mild aortic stenosis. Currently she is receiving Lasix 40 mg IV every 8 hours. She is feeling better. She seems to be less short of breath. Oxygen requirements are at 3 L/min nasal cannula and this is the same oxygen flow to the patient requires on outpatient basis. She was also started on DuoNeb nebulized treatments [id number]. She was started on oral prednisone 40 mg p.o. daily regarding possibility of an underlying COPD exacerbation. Meanwhile, the viral panel has been negative including COVID-19, influenza and RSV. No altered mentation. No chest pain. No other complaints otherwise. On today's evaluation of 02/18/2024, I am seeing this patient for a follow-up. The patient is being seen for shortness of breath that was attributed to a combination of COPD and CHF exacerbation. She is feeling slightly improved compared to yesterday. She remains on bronchodilators and steroids. She is on prednisone burst taper starting with 40 mg p.o. daily. The patient is also on IV Lasix 40 mg every 12 hours. The fluid balance is -1.5 L over the past 24 hours. The labs showed WC count of 11.7 with a hemoglobin 10.3 and a platelet count of 181. BUN is 16 with a creatinine of 2.4 which is essentially stable compared to yesterday. Sodium level is at 139. The viral screen has been negative and the patient remains on oxygen at 3 L with a pulse ox of 99%. No other significant events. She is awake and alert and responsive. He is profoundly weak. On today's evaluation of 02/19/2024, the patient is being seen for a follow-up. The patient is doing well. No significant shortness of breath. She is diuresing adequately. Her fluid balance has been negative another 1 L over the past 24 hours. Improving lower extremity edema. Blood work from today shows a stable creatinine of 2.2 with a BUN of 79. Sodium is at 137. Bicarb is at 29. No other significant events overnight. The patient remains on 3 Suboxone by nasal cannula with a pulse ox of 96%. The patient is on a prednisone burst taper. She will be likely discharged home on Lasix 40 mg p.o. twice daily addition to her bronchodilators and a prednisone burst taper utilized on an outpatient basis. Objective - Vital Signs Vital signs: Vital Signs Temp 97.9 F 02/19/24 09:17 Pulse 76 02/19/24 09:31 Resp 18 02/19/24 09:17 BP 118/65 02/19/24 09:17 Pulse Ox 96 02/19/24 09:23 FiO2 Intake & Output 02/18/24 02/19/24 02/19/24 18:59 06:59 18:59 Intake Total 354 10 240 Output Total 700 1400 Balance -346 -2065 240 Weight 98.1 kg Intake: IV 10 Invasive Line 1 10 Oral 354 240 Output: Urine 700 1400 Other: Voiding Method External Catheter Bedside Commode External Catheter # Voids 1 # Bowel Movements 1 - Exam GENERAL: The patient is currently on 3 L of oxygen nasal cannula,, c omfortable, communicating and following commands and answering questions appropriately. Head exam was generally normal. There was no scleral icterus or corneal arcus. Mucous membranes were moist. EYES: Pupils equal. Conjunctiva normal. HEENT: External appearance of nose and ears normal, oral cavity grossly normal. NECK: JVD unable to assess; masses not palpable. HEART: First and second heart sounds are normal; so edema. LUNGS: Respiratory rate increased; but able to speak in full sentences, d iminished breath sounds or wheezing. The patient has crackles lung base bilaterally. ABDOMEN: Soft, nontender, liver spleen not palpable, no masses palpable. The patient has a large umbilical hernia in place which is reducible. PSYCH: Alert and oriented x3; mood and affect normal. MUSCULOSKELETAL:No Clubbing/cyanosis;muscles-grossly intact. OA, increased edema lower extremities bilaterally NEUROLOGICAL: Cranial nerves grossly intact; no facial asymmetry, power and sensation grossly intact. LYMPHATICS: No lymph nodes palpable in the axilla and neck Skin reveals a inverted area in the right breast along with a cystic structure that can be easily palpated over the right breast. - Labs CBC & Chem 7: 02/18/24 08:02 02/19/24 09:51 Labs: Abnormal Lab Results - Last 24 Hours (Table) 02/18/24 02/18/24 02/18/24 Range/Units 08:02 08:02 11:28 BUN 67 H (7-17) mg/dL Creatinine 2.40 H (0.52-1.04) mg/dL Glucose 147 H (74-99) mg/dL POC Glucose (mg/dL) 161 H (70-110) mg/dL Hemoglobin A1c 7.3 H (<=6.0) % 02/18/24 02/18/24 02/18/24 Range/Units 16:35 19:50 23:45 BUN (7-17) mg/dL Creatinine (0.52-1.04) mg/dL Glucose (74-99) mg/dL POC Glucose (mg/dL) 371 H 413 H 417 H (70-110) mg/dL Hemoglobin A1c (<=6.0) % 02/19/24 02/19/24 02/19/24 Range/Units 01:58 04:53 05:43 BUN (7-17) mg/dL Creatinine (0.52-1.04) mg/dL Glucose (74-99) mg/dL POC Glucose (mg/dL) 359 H 209 H 163 H (70-110) mg/dL Hemoglobin A1c (<=6.0) % Assessment and Plan Plan: Acute on chronic shortness of breath, multifactorial. Patient has a combination of COPD and CHF and some limited fluid overload contributing to her shortness of breath. The predominant decompensating factor however is CHF as the patient diffuse interstitial edema bilaterally has signs of fluid overload. The patient has an elevated proBNP level. The patient has chronic stage IV kidney disease. Chronic hypoxic respiratory failure the patient remains on 3 L of O2 nasal cannula. Severe COPD with an FEV1 of 40% of predicted Chronic systolic heart failure with an EF of around 30-35% and secondary pulmonary hypertension based on an earlier echocardiogram that was done in 2020. Subsequent echocardiogram from May 2023 showed improvement in the left medical ejection fraction essentially CHF with preserved LV function. Repeat echocardiogram shows a preserved function with an EF of around 50 to 55% without any valvular abnormalities. Chronic stage IV kidney disease Chronic atrial fibrillation Obstructive sleep apnea maintenance CPAP therapy on outpatient basis, utilizing an APAP machine at the bedside pressures of 5/15 cm of water Hypertension Hyperlipidemia Diabetes mellitus type 2 Hypothyroidism Cervical spine stenosis Chronic gait dysfunction, Macular degeneration Obesity Large umbilical hernia Cystic breast structure involving the right breast History of bilateral breast cancer with bilateral lumpectomies followed by radiation therapy DNR/DNI CODE STATUS Plan Clinically improved and the patient has been negative fluid balance at least 2.5 L over the past 24 hours The presentation is consistent with CHF. The patient will be switched to oral Lasix Repeat echocardiogram was repeated during this current admission and the patient has a preserved LV function with an EF of around 50 to 55% and no wall motion abnormalities. RV was not adequately visualized and the RVSP was 34 mmHg. No significant valvular abnormalities. Restrict fluid intake. Monitor renal function. Creatinine is stable on today's evaluation Monitor electrolytes. Continue DuoNeb updrafts. Discontinue prednisone for now. Cardiology consultation. Utilize CPAP machine overnight. Titrate oxygen flow to maintain saturation above 90%, currently on 3 L Resume home medication including anticoagulation with Eliquis 2.5 mg twice a day Synthroid resume Lopressor 75 mg 3 times daily Farxiga 10 mg p.o. daily Norvasc 10 mg p.o. daily Possible discharge today
[2024-02-19] MEDS ORDERED: FUROSEMIDE 40 MG TAB PO SCH (16:00)
== END 2024-02-19 12:41 | disposition home or self-care (01) | DRG 291 ==
LOC: EC 16:36 → 3SCARD 19:47 → OBSVTOIN 02-17 12:20
PROVIDERS: ADMIT Internal Medicine; ATTEND Internal Medicine
PROC: 5A09357 Assistance with Respiratory Ventilation, Less than 24 Consecutive Hours, Continuous Positive Airway Pressure (ICD-10-PCS; principal; 2024-02-16)
DX: I13.0 Hypertensive heart and chronic kidney disease with heart failure and stage 1 through stage 4 chronic kidney disease, or unspecified chronic kidney disease (principal); I50.33 Acute on chronic diastolic (congestive) heart failure; R18.8 Other ascites; J96.11 Chronic respiratory failure with hypoxia; J44.1 Chronic obstructive pulmonary disease with (acute) exacerbation; N18.4 Chronic kidney disease, stage 4 (severe); J98.11 Atelectasis; I48.21 Permanent atrial fibrillation; I27.20 Pulmonary hypertension, unspecified; E11.41 Type 2 diabetes mellitus with diabetic mononeuropathy; E11.22 Type 2 diabetes mellitus with diabetic chronic kidney disease; E66.9 Obesity, unspecified; Z68.36 Body mass index [BMI] 36.0-36.9, adult; I70.0 Atherosclerosis of aorta; F32.A Depression, unspecified; E03.9 Hypothyroidism, unspecified; I35.0 Nonrheumatic aortic (valve) stenosis; Z79.4 Long term (current) use of insulin; Z66 Do not resuscitate; G57.93 Unspecified mononeuropathy of bilateral lower limbs; I25.10 Atherosclerotic heart disease of native coronary artery without angina pectoris; E78.5 Hyperlipidemia, unspecified; F41.9 Anxiety disorder, unspecified; H35.30 Unspecified macular degeneration; K21.9 Gastro-esophageal reflux disease without esophagitis; K58.9 Irritable bowel syndrome, unspecified; M48.02 Spinal stenosis, cervical region; M54.9 Dorsalgia, unspecified; G89.29 Other chronic pain; G47.33 Obstructive sleep apnea (adult) (pediatric); K42.9 Umbilical hernia without obstruction or gangrene; K43.9 Ventral hernia without obstruction or gangrene; M19.90 Unspecified osteoarthritis, unspecified site; R26.9 Unspecified abnormalities of gait and mobility; H54.7 Unspecified visual loss; N60.01 Solitary cyst of right breast; Z99.81 Dependence on supplemental oxygen; Z79.01 Long term (current) use of anticoagulants; Z79.84 Long term (current) use of oral hypoglycemic drugs; Z79.890 Hormone replacement therapy; Z87.891 Personal history of nicotine dependence; Z87.442 Personal history of urinary calculi; Z85.3 Personal history of malignant neoplasm of breast; Z92.3 Personal history of irradiation; Z86.14 Personal history of Methicillin resistant Staphylococcus aureus infection; Z86.19 Personal history of other infectious and parasitic diseases; Z79.899 Other long term (current) drug therapy; Z71.3 Dietary counseling and surveillance; Z88.6 Allergy status to analgesic agent
CPT/HCPCS: 36415; 71046; 71250; 80048; 80053; 83036; 83605; 83735; 83880; 84484; 85025; 85027; 85610; 85730; 87636; 93005; 93306; 94640; 94660; 94760; 96374; 96375; 99285

== ENCOUNTER 2024-03-06 16:47 | Emergency (ER) | payer MEDICARE, BC ==
--- NOTE | 2024-03-06 18:07 | ED ---
General Adult HPI - General Chief complaint: Shortness of Breath Stated complaint: SOB Time Seen by Provider: 03/06/24 17:27 Source: patient Mode of arrival: wheelchair Limitations: no limitations - History of Present Illness Initial comments: Dictation was produced using [employer] dictation software. please excuse any grammatical, word or spelling errors. Chief Complaint: 83-year-old female presents to the emergency department for shortness of breath History of Present Illness: Patient is 83-year-old female she has past medical history of COPD and CHF. She states that last week they reduced her Lasix dosage. Shortly after she started to feel more short of breath. She wears home O2 and 3 L nasal cannula at baseline. States that she is also feels like her legs are retaining more fluid than usual. Denies any fever chills or night sweats. The ROS documented in this emergency department record has been reviewed and confirmed by me. Those systems with pertinent positive or negative responses have been documented in the HPI. All other systems are other negative and/or noncontributory. - Related Data Home Medications Medication Instructions Recorded Confirmed Atorvastatin [Lipitor] 20 mg PO HS 07/15/14 02/16/24 Latanoprost Ophth [Xalatan 0.005%] 1 drop BOTH EYES HS 01/28/21 02/16/24 Montelukast [Singulair] 10 mg PO HS 01/28/21 02/16/24 Roflumilast [Daliresp] 500 mcg PO DAILY 01/28/21 02/16/24 Vit C/E/Zn/Coppr/Lutein/Zeaxan 1 cap PO BID 01/28/21 02/16/24 [Preservision Areds 2 Softgel] Ipratropium-Albuterol Nebulize 3 ml INHALATION RT-QID 09/03/21 02/16/24 [Duoneb 0.5 mg-3 mg/3 ml Soln] Insulin Lispro [humaLOG Kwikpen] See Protocol SQ AC-TID 07/23/22 02/16/24 Cyanocobalamin (Vitamin B-12) 1,000 mcg PO DAILY 12/10/22 02/16/24 [Vitamin B-12] Albuterol Sulfate [Albuterol 2 puff INHALATION RT-Q6H PRN 06/06/23 02/16/24 Sulfate Hfa] Ammonium Lactate Lotion 1 applic TOPICAL BID 06/06/23 02/16/24 [Lac-Hydrin 12% Lotion] Benzonatate [Tessalon Perle] 200 mg PO TID PRN 06/06/23 02/16/24 Famotidine [Pepcid] 20 mg PO DAILY 06/06/23 02/16/24 Insulin Glargine,Hum.rec.anlog 22 units SQ HS 06/06/23 02/16/24 [Lantus Solostar Pen] Levothyroxine Sodium [Synthroid] 100 mcg PO AC-BRKFST 06/06/23 02/16/24 Loperamide HCl [Imodium A-D] 2 - 4 mg PO Q8H PRN MDD 16mg 06/06/23 02/16/24 Melatonin 10 mg PO HS PRN 06/06/23 02/16/24 Metoprolol Tartrate [Lopressor] 75 mg PO TID 06/06/23 02/16/24 amLODIPine [Norvasc] 2.5 mg PO DAILY 06/06/23 02/16/24 Acetaminophen Tab [Tylenol] 650 mg PO Q4H PRN 08/29/23 02/16/24 Fluticasone Nasal [place] [Flonase 1 spr EA NOSTRIL DAILY 08/29/23 02/16/24 Nasal [place]] Olopatadine HCl [Patanol 0.1%] 1 drop BOTH EYES BID 08/29/23 02/16/24 hydrALAZINE HCL [Apresoline] 25 mg PO TID 08/29/23 02/16/24 hydrOXYzine HCL [Atarax] 50 mg PO DAILY PRN 08/29/23 02/16/24 Acetaminophen Tab [Tylenol] 500 mg PO Q8H PRN 02/16/24 02/16/24 Calazinc Barrier Cream 1 applic TOPICAL DAILY PRN 02/16/24 02/16/24 Diclofenac Sodium Gel [Voltaren 1% 2 gm TOPICAL BID PRN 02/16/24 02/16/24 Gel] HYDROcodone/APAP 5-325MG [[place] 1 tab PO BID PRN 02/16/24 02/16/24 5-325] Lidocaine 5% Patch [Lidoderm 5% 1 patch TRANSDERM HS 02/16/24 02/16/24 Patch] Nystatin 100,000 Unit/gm Powd 1 applic TOPICAL BID 02/16/24 02/16/24 [Mycostatin Powder] Sennosides/Docusate Sodium [Senna 1 tab PO DAILY PRN 02/16/24 02/16/24 Plus 8.6-50 mg Tablet] Sertraline [Zoloft] 100 mg PO DAILY 02/16/24 02/16/24 Zinc Oxide [Cozima] 1 applic TOPICAL DAILY PRN 02/16/24 02/16/24 Previous Rx's Medication Instructions Recorded Apixaban [Eliquis] 2.5 mg PO BID #60 tab 06/10/23 Dapagliflozin Propanediol [Farxiga] 10 mg PO DAILY #30 tab 06/10/23 Ondansetron Odt [Zofran ODT] 4 mg PO Q8HR PRN #10 tab 11/11/23 Furosemide [Lasix] 40 mg PO BID@0900,1600 #90 tab 02/19/24 predniSONE [Deltasone] 40 mg PO DAILY #4 tab 02/19/24 Furosemide [Lasix] 80 mg PO DAILY #2 tablet 03/06/24 Allergies Allergy/AdvReac Type Severity Reaction Status Date / Time adhesive tape Allergy Rash/Hives Verified 03/06/24 17:25 diclofenac sodium AdvReac pt states Verified 03/06/24 17:25 [From Voltaren] kidney failure Review of Systems ROS Statement: Those systems with pertinent positive or pertinent negative responses have been documented in the HPI. ROS Other: All systems not noted in ROS Statement are negative. Past Medical History Past Medical History: Atrial Fibrillation, Cancer, Heart Failure, COPD, Diabetes Mellitus, Eye Disorder, Hyperlipidemia, Hypertension, Osteoarthritis (OA), Pneumonia, Renal Disease, Seizure Disorder, Sleep Apnea/CPAP/BIPAP Additional Past Medical History / Comment(s): IDDM type II, neuropathy bilateral feet, past hematuria, CKD stage III, nephrolithiasis, chronic respiratory failure/home oxygen 3L/NC ATC, bronchitis, R breast cancer x2 with lumpectomies/radiation, RACHEL/cpap used, spinal stenosis/chronic back pain, IBS, seizure x2 as a teen and one in 2009, bilateral macular degeneration/very poor vision, 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 Past Anesthesia/Blood Transfusion Reactions: No Reported Reaction, Motion Sickness Past Psychological History: Anxiety, Depression Smoking Status: Former smoker Past Alcohol Use History: None Reported Past Drug Use History: None Reported - Past Family History Mother Additional Family Medical History / Comment(s): breast cancer Father Family Medical History: Cancer Additional Family Medical History / Comment(s): Prostate cancer. General Exam - General Exam Comments Initial Comments: PHYSICAL EXAM: General Impression: Alert and oriented x3, not in acute distress HEENT: Normocephalic atraumatic, extra-ocular movements intact, pupils equal and reactive to light bilaterally, mucous membranes moist. Cardiovascular: Heart regular rate and rhythm Chest: Able to complete full sentences, no retractions, no tachypnea, mild pulmonary crackles worse on the right compared to the left Abdomen: abdomen soft, non-tender, non-distended, no organomegaly Musculoskeletal: Pulses present and equal in all extremities, no peripheral edema Motor: no focal deficits noted Neurological: CN II-XII grossly intact, no focal motor or sensory deficits noted Skin: Intact with no visualized rashes Psych: Normal affect and mood Limitations: no limitations Course Vital Signs 03/06/24 17:18 Temperature 98.7 F Pulse Rate 89 Respiratory 22 Rate Blood Pressure 154/87 O2 Sat by Pulse 94 L Oximetry EKG Findings - EKG Comments: EKG Findings:: My EKG interpretation: Ventricular rate 85, A-fib, QRS 81, QTc 432. NQTC prolongation, no ST or T-wave changes noted. EKG compared to February 16, 2024 showing no changes. Overall, this EKG is unremarkable Medical Decision Making - Medical Decision Making Was pt. sent in by a medical professional or institution (, PA, TRADE SALES ASSISTANT, urgent care, hospital, or residential...) When possible be specific @ -No Did you speak to anyone other than the patient for history (EMS, parent, family, police, friend...)? What history was obtained from this source @ -No Did you review nursing and triage notes (agree or disagree)? Why? @ -I reviewed and agree with nursing and triage notes Were old charts reviewed (outside hosp., previous admission, EMS record, old EKG, old radiological studies, urgent care reports/EKG's, residential records)? Report findings @ -No old charts were reviewed Differential Diagnosis (chest pain, altered mental status, abdominal pain women, abdominal pain men, vaginal bleeding, musculoskeletal, weakness, fever, dyspnea, syncope, headache, dizziness, GI bleed, back pain, seizure, CVA, palpatations, mental health)? @ -Differential Dyspnea: Coronary syndrome, arrhythmia, tamponade, asthma, COPD, pulmonary embolism, pneumonia, pneumothorax, pulmonary effusion, anaphylaxis, diabetic ketoacidosis, flailed chest, pulmonary contusion, diaphragmatic rupture, anemia, neuromuscular, this is not meant to be an all-inclusive list. EKG interpreted by me (3pts min.). @ -See above X-rays interpreted by me (1pt min.). @ -X-ray of the chest shows heart failure CT interpreted by me (1pt min.). @ -None done U/S interpreted by me (1pt. min.). @ -None done What testing was considered but not performed or refused? (CT, X-rays, U/S, labs)? Why? @ -None What meds were considered but not given or refused? Why? @ -None Did you discuss the management of the patient with other professionals (farzaneh simmons i.e. , PA, TRADE SALES ASSISTANT, lab, RT, psych nurse, protective services social worker, field investigator, teacher, fire information officer, shelter case manager)? Give summary @ -No Was smoking cessation discussed for >3mins.? @ -No Was critical care preformed (if so, how long)? @ -No Were there social determinants of health that impacted care today? How? (Homelessness, low income, unemployed, alcoholism, drug addiction, transportation, low edu. Level, literacy, decrease access to med. care, assisted, rehab)? @ -No Was there de-escalation of care discussed even if they declined (Discuss DNR or withdrawal of care, Hospice)? DNR status @ -No What co-morbidities impacted this encounter? (DM, HTN, Smoking, COPD, CAD, Cancer, CVA, ARF, Chemo, Hep., AIDS, mental health diagnosis, sleep apnea, morbid obesity)? @ -History of CHF, CKD Was patient admitted / discharged? Hospital course, mention meds given and route, prescriptions, significant lab abnormalities, going to OR and other pertinent info. @ -83-year-old female presents to the emergency department for dyspnea and leg swelling. Patient has a history of heart failure. She had her Lasix dose decreased recently. Vital signs upon arrival are within acceptable limits. Patient on her usual home O2. She does report dyspnea and has some crackles with auscultation to the lungs. Laboratory evaluation obtained. Labs within acceptable limits. BNP slightly elevated at 3800. Kidney function seems to be better than her usual baseline. Chest x-ray shows heart failure. Patient given 40 mg IV Lasix. She told to resume her normal Lasix prescription of 80 mg orally daily for the next 2 days and to follow-up with her primary care doctor. Undiagnosed new problem with uncertain prognosis? @ -No Drug Therapy requiring intensive monitoring for toxicity (Heparin, Nitro, Insulin, Cardizem)? @ -No Were any procedures done? @ -No Diagnosis/symptom? Acute, or Chronic, or Acute on Chronic? Uncomplicated (without systemic symptoms) or Complicated (systemic symptoms)? @ -Mild CHF exacerbation Side effects of treatment? @ -No Exacerbation, Progression, or Severe Exacerbation? @ -No Poses a threat to life or bodily function? How? (Chest pain, USA, ID, pneumonia, PE, COPD, DKA, ARF, appy, cholecystitis, CVA, Diverticulitis, Homicidal, Suicidal, threat to staff... and all critical care pts) @ -No - Lab Data Result diagrams: 03/06/24 19:09 03/06/24 19:09 Lab Results 03/06/24 03/06/24 03/06/24 Range/Units 19:09 19: 19: WBC 10.4 (3.8-10.6) k/uL RBC 3.88 (3.80-5.40) m/uL Hgb 11.1 L (11.4-16.0) gm/dL Hct 37.0 (34.0-46.0) % MCV 95.3 (80.0-100.0) fL MCH 28.7 (25.0-35.0) pg MCHC 30.1 L (31.0-37.0) g/dL RDW 15.7 H (11.5-15.5) % Plt Count 151 (150-450) k/uL MPV 7.6 Neutrophils % 73 % Lymphocytes % 15 % Monocytes % 5 % Eosinophils % 4 % Basophils % 1 % Neutrophils # 7.6 (1.3-7.7) k/uL Lymphocytes # 1.6 (1.0-4.8) k/uL Monocytes # 0.5 (0-1.0) k/uL Eosinophils # 0.4 (0-0.7) k/uL Basophils # 0.1 (0-0.2) k/uL Hypochromasia Slight PT 11.4 (10.0-12.5) sec INR 1.1 (<1.2) APTT 29.6 (22.0-30.0) sec Sodium 142 (137-145) mmol/L Potassium 4.2 (3.5-5.1) mmol/L Chloride 104 (98-107) mmol/L Carbon Dioxide 27 (22-30) mmol/L Anion Gap 11 mmol/L BUN 37 H (7-17) mg/dL Creatinine 2.04 H (0.52-1.04) mg/dL Est GFR (CKD-EPI)AfAm 26 (>60 ml/min/1.73 sqM) Est GFR (CKD-EPI)NonAf 22 (>60 ml/min/1.73 sqM) Glucose 151 H (74-99) mg/dL Calcium 9.0 (8.4-10.2) mg/dL Troponin I (0.000-0.034) ng/mL NT-Pro-B Natriuret Pep 3800 pg/mL 03/06/24 Range/Units 19:09 WBC (3.8-10.6) k/uL RBC (3.80-5.40) m/uL Hgb (11.4-16.0) gm/dL Hct (34.0-46.0) % MCV (80.0-100.0) fL MCH (25.0-35.0) pg MCHC (31.0-37.0) g/dL RDW (11.5-15.5) % Plt Count (150-450) k/uL MPV Neutrophils % % Lymphocytes % % Monocytes % % Eosinophils % % Basophils % % Neutrophils # (1.3-7.7) k/uL Lymphocytes # (1.0-4.8) k/uL Monocytes # (0-1.0) k/uL Eosinophils # (0-0.7) k/uL Basophils # (0-0.2) k/uL Hypochromasia PT (10.0-12.5) sec INR (<1.2) APTT (22.0-30.0) sec Sodium (137-145) mmol/L Potassium (3.5-5.1) mmol/L Chloride (98-107) mmol/L Carbon Dioxide (22-30) mmol/L Anion Gap mmol/L BUN (7-17) mg/dL Creatinine (0.52-1.04) mg/dL Est GFR (CKD-EPI)AfAm (>60 ml/min/1.73 sqM) Est GFR (CKD-EPI)NonAf (>60 ml/min/1.73 sqM) Glucose (74-99) mg/dL Calcium (8.4-10.2) mg/dL Troponin I <0.012 (0.000-0.034) ng/mL NT-Pro-B Natriuret Pep pg/mL Disposition Clinical Impression: Heart failure Disposition: HOME SELF-CARE Condition: Fair Instructions (If sedation given, give patient instructions): Heart Failure (ER) Prescriptions: Furosemide [Lasix] 80 mg PO DAILY #2 tablet Is patient prescribed a controlled substance at d/c from ED?: No Referrals: Stu Ring MD [Primary Care Provider] - 1-2 days Time of Disposition: 20:39
--- NOTE | 2024-03-06 18:35 | XR ---
EXAMINATION TYPE: XR chest 2V DATE OF EXAM: 03/06/2024 COMPARISON: 02/16/2024 HISTORY: Difficulty breathing TECHNIQUE: Frontal and lateral views of the chest are obtained. FINDINGS: There is moderate cardiomegaly, pulmonary vascular congestion and right pleural effusion. The finding s are consistent with moderate CHF. There is no pneumothorax. The osseous structures are intact. IMPRESSION: Findings most consistent with CHF.
[2024-03-06 19:22] LABS: Basophils # (A) 0.1 k/uL (0-0.2); Basophils % (A) 1 %; Eosinophils # (A) 0.4 k/uL (0-0.7); Eosinophils % (A) 4 %; HGB 11.1 gm/dL (11.4-16.0); Hypochromasia Slight; Lymphocytes # (A) 1.6 k/uL (1.0-4.8); Lymphocytes % (A) 15 %; MCH 28.7 pg (25.0-35.0); MCHC 30.1 g/dL (31.0-37.0); MCV 95.3 fL (80.0-100.0); Mean Platelet Volume 7.6; Monocytes # (A) 0.5 k/uL (0-1.0); Monocytes % (A) 5 %; Neutrophils # (A) 7.6 k/uL (1.3-7.7); Neutrophils % (A) 73 %; Platelet Count 151 k/uL (150-450); RBC 3.88 m/uL (3.80-5.40); RDW 15.7 % (11.5-15.5); WBC 10.4 k/uL (3.8-10.6)
[2024-03-06 19:31] LABS: INR 1.1 (<1.2); Partial Thromboplastin Time 29.6 sec (22.0-30.0); Prothrombin Time 11.4 sec (10.0-12.5)
[2024-03-06 19:36] LABS: African American GFR (CKD) 26 (>60 ml/min/1.73 sqM); Anion Gap 11 mmol/L; Blood Urea Nitrogen 37 mg/dL (7-17); Carbon Dioxide 27 mmol/L (22-30); Chloride 104 mmol/L (98-107); Glucose 151 mg/dL (74-99); Non-African American GFR(CKD) 22 (>60 ml/min/1.73 sqM); Potassium 4.2 mmol/L (3.5-5.1); Sodium 142 mmol/L (137-145)
[2024-03-06 19:45] LABS: NT-Pro-B-Type Natriuretic Pept 3800 pg/mL
[2024-03-06] MEDS: FUROSEMIDE 10 MG/ML 4 ML VIAL IV STA (20:49)
[2024-03-06 21:21] VITALS: BP 145/80; PULSE 76; RESP 20; TEMP 98.6
== END 2024-03-06 21:04 | disposition home or self-care (01) ==
LOC: EC 16:47
DX: I50.9 Heart failure, unspecified (principal); N18.30 Chronic kidney disease, stage 3 unspecified; Z79.899 Other long term (current) drug therapy; Z87.891 Personal history of nicotine dependence; Z90.49 Acquired absence of other specified parts of digestive tract; Z91.048 Other nonmedicinal substance allergy status; Z88.8 Allergy status to other drugs, medicaments and biological substances
CPT/HCPCS: 36415; 93005; 83880; 80048; 84484; 85025; 85610; 85730; 71046; 99285; 96374; J1940

== ENCOUNTER 2024-03-26 14:05 | Inpatient (IN) | payer MEDICARE, BC ==
--- NOTE | 2024-03-26 14:22 | ED ---
General Adult HPI - General Chief complaint: Shortness of Breath Stated complaint: fluid retention Time Seen by Provider: 03/26/24 14:07 Source: patient, EMS, RN notes reviewed, old records reviewed Mode of arrival: EMS Limitations: no limitations - History of Present Illness Initial comments: Patient is an 83-year-old female presenting to the emergency department with concern for fluid retention. Patient is a poor historian and states that she is "here to "patient reportedly was on hospice however was sent here for IV Lasix. - Related Data Home Medications Medication Instructions Recorded Confirmed Atorvastatin [Lipitor] 20 mg PO HS 07/15/14 02/16/24 Latanoprost Ophth [Xalatan 0.005%] 1 drop BOTH EYES HS 01/28/21 02/16/24 Montelukast [Singulair] 10 mg PO HS 01/28/21 02/16/24 Roflumilast [Daliresp] 500 mcg PO DAILY 01/28/21 02/16/24 Vit C/E/Zn/Coppr/Lutein/Zeaxan 1 cap PO BID 01/28/21 02/16/24 [Preservision Areds 2 Softgel] Ipratropium-Albuterol Nebulize 3 ml INHALATION RT-QID 09/03/21 02/16/24 [Duoneb 0.5 mg-3 mg/3 ml Soln] Insulin Lispro [humaLOG Kwikpen] See Protocol SQ AC-TID 07/23/22 02/16/24 Cyanocobalamin (Vitamin B-12) 1,000 mcg PO DAILY 12/10/22 02/16/24 [Vitamin B-12] Albuterol Sulfate [Albuterol 2 puff INHALATION RT-Q6H PRN 06/06/23 02/16/24 Sulfate Hfa] Ammonium Lactate Lotion 1 applic TOPICAL BID 06/06/23 02/16/24 [Lac-Hydrin 12% Lotion] Benzonatate [Tessalon Perle] 200 mg PO TID PRN 06/06/23 02/16/24 Famotidine [Pepcid] 20 mg PO DAILY 06/06/23 02/16/24 Insulin Glargine,Hum.rec.anlog 22 units SQ HS 06/06/23 02/16/24 [Lantus Solostar Pen] Levothyroxine Sodium [Synthroid] 100 mcg PO AC-BRKFST 06/06/23 02/16/24 Loperamide HCl [Imodium A-D] 2 - 4 mg PO Q8H PRN MDD 16mg 06/06/23 02/16/24 Melatonin 10 mg PO HS PRN 06/06/23 02/16/24 Metoprolol Tartrate [Lopressor] 75 mg PO TID 06/06/23 02/16/24 amLODIPine [Norvasc] 2.5 mg PO DAILY 06/06/23 02/16/24 Acetaminophen Tab [Tylenol] 650 mg PO Q4H PRN 08/29/23 02/16/24 Fluticasone Nasal Desdemona [Flonase 1 spr EA NOSTRIL DAILY 08/29/23 02/16/24 Nasal Desdemona] Olopatadine HCl [Patanol 0.1%] 1 drop BOTH EYES BID 08/29/23 02/16/24 hydrALAZINE HCL [Apresoline] 25 mg PO TID 08/29/23 02/16/24 hydrOXYzine HCL [Atarax] 50 mg PO DAILY PRN 08/29/23 02/16/24 Acetaminophen Tab [Tylenol] 500 mg PO Q8H PRN 02/16/24 02/16/24 Calazinc Barrier Cream 1 applic TOPICAL DAILY PRN 02/16/24 02/16/24 Diclofenac Sodium Gel [Voltaren 1% 2 gm TOPICAL BID PRN 02/16/24 02/16/24 Gel] HYDROcodone/APAP 5-325MG [Parrish 1 tab PO BID PRN 02/16/24 02/16/24 5-325] Lidocaine 5% Patch [Lidoderm 5% 1 patch TRANSDERM HS 02/16/24 02/16/24 Patch] Nystatin 100,000 Unit/gm Powd 1 applic TOPICAL BID 02/16/24 02/16/24 [Mycostatin Powder] Sennosides/Docusate Sodium [Senna 1 tab PO DAILY PRN 02/16/24 02/16/24 Plus 8.6-50 mg Tablet] Sertraline [Zoloft] 100 mg PO DAILY 02/16/24 02/16/24 Zinc Oxide [Cozima] 1 applic TOPICAL DAILY PRN 02/16/24 02/16/24 Previous Rx's Medication Instructions Recorded Apixaban [Eliquis] 2.5 mg PO BID #60 tab 06/10/23 Dapagliflozin Propanediol [Farxiga] 10 mg PO DAILY #30 tab 06/10/23 Ondansetron Odt [Zofran ODT] 4 mg PO Q8HR PRN #10 tab 11/11/23 Furosemide [Lasix] 40 mg PO BID@0900,1600 #90 tab 02/19/24 predniSONE [Deltasone] 40 mg PO DAILY #4 tab 02/19/24 Furosemide [Lasix] 80 mg PO DAILY #2 tablet 03/06/24 Allergies Allergy/AdvReac Type Severity Reaction Status Date / Time adhesive tape Allergy Rash/Hives Verified 03/26/24 16:01 diclofenac sodium AdvReac pt states Verified 03/26/24 16:01 [From Voltaren] kidney failure Review of Systems ROS Statement: Those systems with pertinent positive or pertinent negative responses have been documented in the HPI. ROS Other: All systems not noted in ROS Statement are negative. Constitutional: Denies: fever Eyes: Denies: eye pain ENT: Denies: ear pain Respiratory: Reports: as per HPI, dyspnea Cardiovascular: Denies: chest pain Endocrine: Denies: fatigue Gastrointestinal: Denies: abdominal pain Musculoskeletal: Denies: back pain Past Medical History Past Medical History: Atrial Fibrillation, Cancer, Heart Failure, COPD, Diabetes Mellitus, Eye Disorder, Hyperlipidemia, Hypertension, Osteoarthritis (OA), Pneumonia, Renal Disease, Seizure Disorder, Sleep Apnea/CPAP/BIPAP Additional Past Medical History / Comment(s): IDDM type II, neuropathy bilateral feet, past hematuria, CKD stage III, nephrolithiasis, chronic respiratory failure/home oxygen 3L/[place] ATC, bronchitis, R breast cancer x2 with lumpectomies/radiation, RACHEL/cpap used, spinal stenosis/chronic back pain, IBS, seizure x2 as a teen and one in 2010, bilateral macular degeneration/very poor vision, 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 Past Anesthesia/Blood Transfusion Reactions: No Reported Reaction, Motion Sickness Past Psychological History: Anxiety, Depression Smoking Status: Former smoker Past Alcohol Use History: None Reported Past Drug Use History: None Reported - Past Family History Mother Additional Family Medical History / Comment(s): breast cancer Father Family Medical History: Cancer Additional Family Medical History / Comment(s): Prostate cancer. General Exam Limitations: no limitations General appearance: alert, in no apparent distress Head exam: Present: normocephalic Eye exam: Present: normal appearance Neck exam: Present: normal inspection Respiratory exam: Present: rales Cardiovascular Exam: Present: regular rate, normal rhythm GI/Abdominal exam: Present: soft. Absent: tenderness Extremities exam: Present: pedal edema. Absent: calf tenderness Neurological exam: Present: alert Psychiatric exam: Present: normal affect, normal mood Skin exam: Present: normal color Course Vital Signs 03/26/24 03/26/24 14:11 15:56 Temperature 97.4 F L Pulse Rate 72 60 Respiratory 14 18 Rate Blood Pressure 97/57 103/63 O2 Sat by Pulse 96 91 L Oximetry EKG Findings - EKG Results: EKG: interpreted by OLU (Superior axis septal Q waves. Low QRS voltage.), normal ST/T EKG shows: atrial fibrillation Medical Decision Making - Medical Decision Making Was pt. sent in by a medical professional or institution (, PA, SUPERVISOR CHANNEL PROCESS, urgent care, hospital, or [place] health [place] facility...) When possible be specific @ -Patient presents from [facility] Did you speak to anyone other than the patient for history (EMS, parent, family, police, friend...)? What history was obtained from this source @ -Family arrives and is power of trust and estates attorney. They state patient just started hospice on Wednesday secondary to thoughts of prolonged deterioration however patient rapidly progressively deteriorated. Patient did have medication changes and was taken off Lasix this past Wednesday. Did you review nursing and triage notes (agree or disagree)? Why? @ -I reviewed and agree with nursing and triage notes Were old charts reviewed (outside hosp., previous admission, EMS record, old EKG, old radiological studies, urgent care reports/EKG's, [place] health [facility] facility records)? Report findings @ -Previous chest x-ray also shows findings concerning for CHF Differential Diagnosis (chest pain, altered mental status, abdominal pain women, abdominal pain men, vaginal bleeding, weakness, fever, dyspnea, syncope, headache, dizziness, GI bleed, back pain, seizure, CVA, palpatations, mental health, musculoskeletal)? @ -Not applicable EKG interpreted by me (3pts min.). @ -As above X-rays interpreted by me (1pt min.). @ -Chest x-ray concerning for CHF. CT interpreted by me (1pt min.). @ -None done U/S interpreted by me (1pt. min.). @ -None done What testing was considered but not performed or refused? (CT, X-rays, U/S, labs)? Why? @ -None What meds were considered but not given or refused? Why? @ -None Did you discuss the management of the patient with other professionals (professionals i.e. , PA, SUPERVISOR CHANNEL [employer]ESS, lab, RT, psych nurse, professor of social work, vp ancillary, teacher, labor relations officer, home health care case manager)? Give summary @ -No Was smoking cessation discussed for >3mins.? @ -No Was critical care preformed (if so, how long)? @ -No Were there social determinants of health that impacted care today? How? (Homelessness, low income, unemployed, alcoholism, drug addiction, transportatio n, low edu. Level, literacy, decrease access to med. care, snf, rehab)? @ -No Was there de-escalation of care discussed even if they declined (Discuss DNR or withdrawal of care, Hospice)? DNR status @ -No What co-morbidities impacted this encounter? (DM, HTN, Smoking, COPD, CAD, Cancer, CVA, ARF, Chemo, Hep., AIDS, mental health diagnosis, sleep apnea, morbid obesity)? @ -None Was patient admitted / discharged? Hospital course, mention meds given and route, prescriptions, significant lab abnormalities, going to OR and other pertinent info. @ -Patient reevaluated and unchanged. Patient and family are made aware of results and plan. Case discussed with Dr. Clark who will admit. Family is strongly considering hospice admission and hospice will be consulted for probable hospice admission. Undiagnosed new problem with uncertain prognosis? @ -No Drug Therapy requiring intensive monitoring for toxicity (Heparin, Nitro, Insulin, Cardizem)? @ -No Were any procedures done? @ -No Diagnosis/symptom? @ -CHF, renal failure Acute, or Chronic, or Acute on Chronic? @ -Acute, acute Uncomplicated (without systemic symptoms) or Complicated (systemic symptoms)? @ -Default Side effects of treatment? @ -No Exacerbation, Progression, or Severe Exacerbation? @ -No Poses a threat to life or bodily function? How? (Chest pain, USA, NH, pneumonia, PE, COPD, DKA, ARF, appy, cholecystitis, CVA, Diverticulitis, Homicidal, Suicidal, threat to staff... and all critical care pts) @ -Life-threatening - Lab Data Result diagrams: 03/26/24 15:16 03/26/24 15:16 Lab Results 03/26/24 03/26/24 03/26/24 Range/Units 15:16 15:16 15:16 WBC 9.5 (3.8-10.6) k/uL RBC 3.63 L (3.80-5.40) m/uL Hgb 10.5 L (11.4-16.0) gm/dL Hct 34.7 (34.0-46.0) % MCV 95.6 (80.0-100.0) fL MCH 28.9 (25.0-35.0) pg MCHC 30.2 L (31.0-37.0) g/dL RDW 16.8 H (11.5-15.5) % Plt Count 181 (150-450) k/uL MPV 8.3 Neutrophils % 75 % Lymphocytes % 13 % Monocytes % 7 % Eosinophils % 2 % Basophils % 1 % Neutrophils # 7.1 (1.3-7.7) k/uL Lymphocytes # 1.2 (1.0-4.8) k/uL Monocytes # 0.7 (0-1.0) k/uL Eosinophils # 0.2 (0-0.7) k/uL Basophils # 0.1 (0-0.2) k/uL Hypochromasia Marked Anisocytosis Slight PT 12.0 (10.0-12.5) sec INR 1.1 (<1.2) APTT 28.7 (22.0-30.0) sec Sodium 142 (137-145) mmol/L Potassium 5.6 H (3.5-5.1) mmol/L Chloride 109 H (98-107) mmol/L Carbon Dioxide 17 L (22-30) mmol/L Anion Gap 16 mmol/L BUN 93 H (7-17) mg/dL Creatinine 4.74 H (0.52-1.04) mg/dL Est GFR (CKD-EPI)AfAm 9 (>60 ml/min/1.73 sqM) Est GFR (CKD-EPI)NonAf 8 (>60 ml/min/1.73 sqM) Glucose 30 L* (74-99) mg/dL Plasma Lactic Acid Hema (0.7-2.0) mmol/L Calcium 8.6 (8.4-10.2) mg/dL Magnesium 2.6 H (1.6-2.3) mg/dL Total Bilirubin 0.9 (0.2-1.3) mg/dL AST 39 H (14-36) U/L ALT 19 (4-34) U/L Alkaline Phosphatase 181 H (38-126) U/L Troponin I (0.000-0.034) ng/mL NT-Pro-B Natriuret Pep 7660 pg/mL Total Protein 7.5 (6.3-8.2) g/dL Albumin 3.6 (3.5-5.0) g/dL 03/26/24 03/26/24 Range/Units 15:16 15:16 WBC (3.8-10.6) k/uL RBC (3.80-5.40) m/uL Hgb (11.4-16.0) gm/dL Hct (34.0-46.0) % MCV (80.0-100.0) fL MCH (25.0-35.0) pg MCHC (31.0-37.0) g/dL RDW (11.5-15.5) % Plt Count (150-450) k/uL MPV Neutrophils % % Lymphocytes % % Monocytes % % Eosinophils % % Basophils % % Neutrophils # (1.3-7.7) k/uL Lymphocytes # (1.0-4.8) k/uL Monocytes # (0-1.0) k/uL Eosinophils # (0-0.7) k/uL Basophils # (0-0.2) k/uL Hypochromasia Anisocytosis PT (10.0-12.5) sec INR (<1.2) APTT (22.0-30.0) sec Sodium (137-145) mmol/L Potassium (3.5-5.1) mmol/L Chloride (98-107) mmol/L Carbon Dioxide (22-30) mmol/L Anion Gap mmol/L BUN (7-17) mg/dL Creatinine (0.52-1.04) mg/dL Est GFR (CKD-EPI)AfAm (>60 ml/min/1.73 sqM) Est GFR (CKD-EPI)NonAf (>60 ml/min/1.73 sqM) Glucose (74-99) mg/dL Plasma Lactic Acid Hema 0.8 (0.7-2.0) mmol/L Calcium (8.4-10.2) mg/dL Magnesium (1.6-2.3) mg/dL Total Bilirubin (0.2-1.3) mg/dL AST (14-36) U/L ALT (4-34) U/L Alkaline Phosphatase (38-126) U/L Troponin I 0.021 (0.000-0.034) ng/mL NT-Pro-B Natriuret Pep pg/mL Total Protein (6.3-8.2) g/dL Albumin (3.5-5.0) g/dL Disposition Clinical Impression: Acute on chronic kidney failure, Congestive heart failure Disposition: ADMITTED IP TO THIS HOSP Is patient prescribed a controlled substance at d/c from ED?: No Referrals: Stu Ring MD [Primary Care Provider] - 1-2 days Time of Disposition: 16:07
[2024-03-26 14:34] VITALS: TEMP 97.4
[2024-03-26] MEDS: FUROSEMIDE 10 MG/ML 4 ML VIAL IV STA (15:23)
--- NOTE | 2024-03-26 15:24 | XR ---
EXAMINATION TYPE: XR chest 1V portable DATE OF EXAM: 03/26/2024 3:14 PM CLINICAL INDICATION:Female, 83 years old with history of dyspnea; [facility] COMPARISON: Chest radiographs from 03/06/2024, CT 02/17/2024 TECHNIQUE: XR chest 1V portable Frontal view of the chest. FINDINGS: Lungs/Pleura: No evidence of focal consolidation or pneumothorax. Blunting of the costophrenic angles is present. Pulmonary vascularity: Pulmonary vascular congestion. Heart/mediastinum: Cardiomediastinal silhouette is enlarged and stable. Musculoskeletal: No acute osseous pathology. Other findings: None IMPRESSION: Cardiomegaly, pulmonary vascular congestion and bilateral pleural effusions. Correlate with BNP for c ongestive heart failure.
[2024-03-26] MEDS: NITROGLYCERIN OINT 1 INCH/GM PACKET TOPICAL SCH (15:25)
[2024-03-26 15:38] LABS: INR 1.1 (<1.2); Partial Thromboplastin Time 28.7 sec (22.0-30.0)
[2024-03-26 15:42] LABS: ALT 19 U/L (4-34); AST 39 U/L (14-36); African American GFR (CKD) 9 (>60 ml/min/1.73 sqM); Albumin 3.6 g/dL (3.5-5.0); Alkaline Phosphatase 181 U/L (38-126); Anion Gap 16 mmol/L; Blood Urea Nitrogen 93 mg/dL (7-17); Calcium 8.6 mg/dL (8.4-10.2); Carbon Dioxide 17 mmol/L (22-30); Chloride 109 mmol/L (98-107); Magnesium 2.6 mg/dL (1.6-2.3); Non-African American GFR(CKD) 8 (>60 ml/min/1.73 sqM); Potassium 5.6 mmol/L (3.5-5.1); Sodium 142 mmol/L (137-145); Total Bilirubin 0.9 mg/dL (0.2-1.3); Total Protein 7.5 g/dL (6.3-8.2)
[2024-03-26 15:45] LABS: Anisocytosis Slight; Basophils # (A) 0.1 k/uL (0-0.2); Basophils % (A) 1 %; Eosinophils # (A) 0.2 k/uL (0-0.7); Eosinophils % (A) 2 %; HCT 34.7 % (34.0-46.0); HGB 10.5 gm/dL (11.4-16.0); Hypochromasia Marked; Lymphocytes # (A) 1.2 k/uL (1.0-4.8); Lymphocytes % (A) 13 %; MCH 28.9 pg (25.0-35.0); MCHC 30.2 g/dL (31.0-37.0); MCV 95.6 fL (80.0-100.0); Mean Platelet Volume 8.3; Monocytes # (A) 0.7 k/uL (0-1.0); Monocytes % (A) 7 %; Neutrophils # (A) 7.1 k/uL (1.3-7.7); Neutrophils % (A) 75 %; Platelet Count 181 k/uL (150-450); RBC 3.63 m/uL (3.80-5.40); RDW 16.8 % (11.5-15.5); WBC 9.5 k/uL (3.8-10.6)
[2024-03-26 15:50] LABS: Glucose 30 mg/dL (74-99); NT-Pro-B-Type Natriuretic Pept 7660 pg/mL
[2024-03-26] MEDS: DEXTROSE 50% SYRINGE 50 ML IVP STA (16:07)
[2024-03-26 18:00] LABS: Glucose,Whole Blood 76 mg/dL (70-110)
[2024-03-26] MEDS ORDERED: GLYCOPYRROLATE 0.2 MG/ML 2 ML VIAL IVP PRN (18:15)
[2024-03-26] MEDS ORDERED: ACETAMINOPHEN TAB 325 MG TAB PO PRN (18:15)
[2024-03-26] MEDS ORDERED: DRY MOUTH SPRAY 44.3 SPRAY/44.3 ML SPRAY MUCOUS MEM PRN (18:15)
[2024-03-26] MEDS ORDERED: ONDANSETRON 4 MG/2 ML VIAL IVP PRN (18:15)
[2024-03-26] MEDS ORDERED: ARTIFICIAL TEARS-HYPROMELLOSE DROPS 15 ML BTL BOTH EYES PRN (18:15)
[2024-03-26] MEDS ORDERED: DEXTROSE 50% SYRINGE 50 ML IVP PRN (18:18)
--- NOTE | 2024-03-26 18:46 | P.HPIM ---
History of Present Illness H&P Date: 03/26/24 History of Presenting Illness: Patient is a very pleasant 83-year-old female with end-stage congestive heart failure, advanced COPD with chronic hypoxic respiratory failure on 3 L at all times, severe pulmonary hypertension, chronic atrial fibrillation and stage IV chronic kidney disease. She presented to the emergency department from [facility] where patient was on hospice. Patient and family requested patient be transferred to the hospital for care and consult to [facility] as they would like to sign off with hospice group they are currently using. Patient and patient's niece at bedside. Patient is alert and oriented to person, place, time, and situation and is very adamant that she wa nts to be a DNR and admitted for comfort care only. Patient stated that she would like to continue with IV Lasix and requesting to be placed on comfort measures only with consult to [facility] hospice services. Patient reports pain throughout her lower back. Patient did undergo evaluation in the emergency department prior to admission for comfort care. Vital signs upon arrival show blood pressure 97/57, heart rate 72, respiratory rate 14, temp 97.4 F, and SpO2 of 96% on 4 L. An EKG was completed showing atrial fibrillation with a controlled ventricular rate of 78 bpm. Chest x-ray revealed cardiomegaly and pulmonary vascular congestion with bilateral pleural effusions consistent with congestive heart failure. Labs were completed and reviewed. CBC showing stable normocytic anemia with hemoglobin of 10.5. Coagulation profile normal findings. BMP revealing hyperkalemia with potassium of 5.6, hyperchloremia with chloride of 109, hypocarbia with bicarb of 17 and elevated anion gap of 16 with acute kidney injury on stage IV chronic kidney disease with BUN of 93, creatinine of 4.74, and GFR of 8 with baseline creatinine around 2. Blood glucose was 30. Liver profile revealed elevated AST of 39 and ALT of 181. Troponin was 0.021. proBNP was 7660. Patient admitted under our services with consultation to [facility]. Review of systems: Pertinent positives and negatives as discussed in HPI, a complete review of systems was performed and all other systems are negative. Physical exam: Vital signs reviewed and stable. General: Mild to moderate distress noted secondary to increased work of breathing and patient's reports of pain. Derm: Skin warm and dry, normal coloration for ethnicity. Head: Atraumatic, normocephalic and symmetric. 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 Mouth: no lip lesions, mucus membranes moist Cardiovascular: Irregularly irregular rhythm, no noted murmur Lungs: Increased work of breathing with mild, lungs diffuse rhonchi throughout. 4 L O2. Abdominal: soft, nontender to palpation, no guarding, no appreciable organomegaly Ext: ROM intact. No gross muscle atrophy, bilateral lower extremity pitting edema, no contractures Neuro: Speech clear, face symmetrical and no noted focal neuro deficits. GCS 15. Psych: Alert and oriented to person, place, time, and situation. Appropriate and pleasant affect. Assessment and Plan of Care: Comfort care End-stage diastolic congestive heart failure Advanced COPD with chronic hypoxic respiratory failure Severe pulmonary hypertension Chronic atrial fibrillation Acute kidney injury on stage IV chronic kidney disease Hypoglycemia Hyperkalemia -DNR/DNI with comfort measures only -Consult placed to [facility] -Symptomatic care and pain management. -Order placed for Lasix 40 mg IVP as requested for patient for fluid overload secondary to end-stage CHF -Tylenol 650 mg every 4 hours as needed for fever and/or mild pain. -Artificial teardrops to bilateral eyes every 2 hours as needed for dry eyes. -Scopolamine patch. -Order placed for sublingual atropine drops and Robinul for excess secretions. -Zofran as needed for nausea and/or vomiting. -Dilaudid 1 mg IVP every 2 hours as needed for moderate to severe pain. -Ativan 1 mg IVP every 6 hours as needed for agitation or acute anxiety. -Patient also placed on [id number] glucose checks as needed and to be given D50 25 mg for blood glucose of 50-70 and 50 mg of D50 for blood glucose less than 50. -Continue with supplemental oxygen and may titrate for patient's comfort. -Orders placed to turn and reposition patient every 2 hours as needed for comfort and for initiation of Byrnes catheter Data and imaging reviewed: As stated above in HPI CODE STATUS: DNR/DNI, comfort measures only Discussed with: Patient, patient's niece at bedside, web production assistant, and ED physician. Patient was seen independently by Nurse Practitioner. This document was prepared using [employer] dictation software. Please allow for errors in meter reader chief while rare they do occur. Channing Rose NP rendered care for this patient independently, reviewed the findings and plan as documented in the note above. I did not physically speak with or examine the patient on this date. Past Medical History Past Medical History: Atrial Fibrillation, Cancer, Heart Failure, COPD, Diabetes Mellitus, Eye Disorder, Hyperlipidemia, Hypertension, Osteoarthritis (OA), Pneumonia, Renal Disease, Seizure Disorder, Sleep Apnea/CPAP/BIPAP Additional Past Medical History / Comment(s): IDDM type II, neuropathy bilateral feet, past hematuria, CKD stage III, nephrolithiasis, chronic respiratory failure/home oxygen 3L/[place] ATC, bronchitis, R breast cancer x2 with lumpectomies/radiation, RACHEL/cpap used, spinal stenosis/chronic back pain, IBS, seizure x2 as a teen and one in 2010, bilateral macular degeneration/very poor vision, 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 Past Anesthesia/Blood Transfusion Reactions: No Reported Reaction, Motion Sickness Past Psychological History: Anxiety, Depression Smoking Status: Former smoker Past Alcohol Use History: None Reported Past Drug Use History: None Reported - Past Family History Mother Additional Family Medical History / Comment(s): breast cancer Father Family Medical History: Cancer Additional Family Medical History / Comment(s): Prostate cancer. Medications and Allergies Home Medications Medication Instructions Recorded Confirmed Type Roflumilast [Daliresp] 500 mcg PO DAILY@0800 01/28/21 03/26/24 History Ipratropium-Albuterol Nebulize 3 ml INHALATION RT-QID 09/03/21 03/26/24 History [Duoneb 0.5 mg-3 mg/3 ml Soln] Insulin Lispro [humaLOG Kwikpen] See Protocol SQ AC-TID 07/23/22 03/26/24 History Albuterol Sulfate [Albuterol 2 puff INHALATION RT-Q6H PRN 06/06/23 03/26/24 History Sulfate Hfa] Ammonium Lactate Lotion 1 applic TOPICAL BID@08,199906/06/23 03/26/24 History [Lac-Hydrin 12% Lotion] Benzonatate [Tessalon Perle] 200 mg PO TID PRN 06/06/23 03/26/24 History Famotidine [Pepcid] 20 mg PO DAILY@79906/06/23 03/26/24 History Loperamide HCl [Imodium A-D] 2 - 4 mg PO Q8H PRN 06/06/23 03/26/24 History amLODIPine [Norvasc] 2.5 mg PO DAILY@79906/06/23 03/26/24 History hydrOXYzine HCL [Atarax] 50 mg PO DAILY PRN 08/29/23 03/26/24 History Sertraline [Zoloft] 100 mg PO DAILY@79902/16/24 03/26/24 History Acetaminophen [Tylenol] 650 mg PO Q4H PRN 03/26/24 03/26/24 History Bumetanide [BUMEX] 2 mg PO DAILY@79903/26/24 03/26/24 History Dapagliflozin Propanediol [Farxiga] 10 mg PO DAILY@79903/26/24 03/26/24 History HYDROcodone/APAP 5-325MG [[place] 1 tab PO BID@08,199903/26/24 03/26/24 History 5-325] Insulin Glargine,Hum.rec.anlog 22 units SQ HS@199903/26/24 03/26/24 History [Lantus Solostar Pen] LORazepam [Ativan] 0.5 mg PO HS@199903/26/24 03/26/24 History LORazepam [Ativan] 0.5 mg PO Q6H PRN 03/26/24 03/26/24 History Latanoprost [Latanoprost 0.005%] 1 drop BOTH EYES HS@199903/26/24 03/26/24 History Levothyroxine Sodium [Synthroid] 100 mcg PO DAILY@0703/26/24 03/26/24 History Lidocaine 5% Patch [Lidoderm] 1 patch TOPICAL HS@199903/26/24 03/26/24 History MORPHINE ORAL NONA CONC 20mg/mL 5 mg PO Q3H PRN 03/26/24 03/26/24 History [Roxanol Oral Soln Conc 20MG/ML] Melatonin 10 mg PO HS PRN 03/26/24 03/26/24 History Menthol-Zinc Oxide Oint 1 applic TOPICAL QID PRN 03/26/24 03/26/24 History [Calmoseptine Ointment] Metoprolol Tartrate [Lopressor] 75 mg PO TID@0800,1399,199903/26/24 03/26/24 History Nystatin 100,000 Unit/gm Powd 1 applic TOPICAL DAILY PRN 03/26/24 03/26/24 H istory [Mycostatin Powder] Nystatin 100,000 Unit/gm Powd 1 applic TOPICAL DAILY@0800 03/26/24 03/26/24 History [Mycostatin Powder] Ondansetron Odt [Zofran Odt] 4 mg PO Q8HR PRN 03/26/24 03/26/24 History QUEtiapine [SEROquel] 50 mg PO HS PRN 03/26/24 03/26/24 History Sennosides/Docusate Sodium [Senna 1 tab PO DAILY PRN 03/26/24 03/26/24 History Plus 8.6-50 mg Tablet] Vit C/E/Zn/Coppr/Lutein/Zeaxan 1 cap PO BID@0800,199903/26/24 03/26/24 History [Preservision Areds 2 Softgel] bisacodyL [Dulcolax] 10 mg RECTAL DAILY PRN 03/26/24 03/26/24 History Allergies Allergy/AdvReac Type Severity Reaction Status Date / Time adhesive tape Allergy Rash/Hives Verified 03/26/24 16:01 diclofenac sodium AdvReac pt states Verified 03/26/24 16:01 [From [facility]] kidney failure Physical Exam Vitals: Vital Signs Temp Pulse Resp BP Pulse Ox 03/26/24 17:18 78 22 109/64 98 03/26/24 16:32 65 22 101/64 95 03/26/24 15:56 60 18 103/63 91 L 03/26/24 14:11 97.4 F L 72 14 97/57 96 Intake and Output 04/03/26/24 03/26/24 06:59 14:59 22:59 Other: Weight 95.254 kg Results CBC & Chem 7: 03/26/24 15:16 03/26/24 15:16 Labs: Abnormal Lab Results - Last 24 Hours (Table) 03/26/24 03/26/24 Range/Units 15:16 15:16 RBC 3.63 L (3.80-5.40) m/uL Hgb 10.5 L (11.4-16.0) gm/dL MCHC 30.2 L (31.0-37.0) g/dL RDW 16.8 H (11.5-15.5) % Potassium 5.6 H (3.5-5.1) mmol/L Chloride 109 H (98-107) mmol/L Carbon Dioxide 17 L (22-30) mmol/L BUN 93 H (7-17) mg/dL Creatinine 4.74 H (0.52-1.04) mg/dL Glucose 30 L* (74-99) mg/dL Magnesium 2.6 H (1.6-2.3) mg/dL AST 39 H (14-36) U/L Alkaline Phosphatase 181 H (38-126) U/L
[2024-03-26] MEDS ORDERED: QUEtiapine 50 MG TAB PO PRN (18:48)
[2024-03-26] MEDS ORDERED: BENZONATATE 100 MG CAP PO PRN (18:48)
[2024-03-26] MEDS ORDERED: MELATONIN 5 MG TABLET PO PRN (18:48)
[2024-03-26] MEDS ORDERED: ALBUTEROL NEBULIZED 2.5 MG/3 ML INHALATION PRN (18:48)
[2024-03-26] MEDS ORDERED: NYSTATIN 100,000 UNIT/GM POWD 15 GM TOPICAL PRN (18:48)
[2024-03-26] MEDS ORDERED: LOPERAMIDE 2 MG CAP PO PRN (18:48)
[2024-03-26] MEDS: HYDROmorphone 1 MG/ML 1 ML SYRINGE IVP PRN (18:52)
[2024-03-26] MEDS: SCOPOLAMINE 1 MG/72 HR PATCH TRANSDERM SCH (18:54)
[2024-03-26] MEDS: METOPROLOL TARTRATE 25 MG TAB PO SCH (19:47)
[2024-03-26] MEDS: LORazepam 2 MG/ML INJ IV PRN (19:53)
[2024-03-26] MEDS: LIDOCAINE 4% PATCH TOPICAL SCH (19:53)
[2024-03-26] MEDS: ATROPINE OPHTH SOLN 1% 5ML BTL SUBLINGUAL PRN (19:54)
[2024-03-26] MEDS: LORazepam 0.5 MG TAB PO SCH (20:06)
[2024-03-26 22:04] VITALS: RESP 18
[2024-03-26 22:09] LABS: Glucose,Whole Blood 79 mg/dL (70-110)
[2024-03-26] MEDS: LATANOPROST 0.005% OPHTH DROPS 2.5 ML BTL BOTH EYES SCH (22:27)
[2024-03-26] MEDS: VIT A,C & E-LUTEIN-MINERALS 1 EACH TAB PO SCH (22:28)
[2024-03-27] MEDS: LEVOTHYROXINE 100 MCG TAB PO SCH (07:56)
[2024-03-27] MEDS: NON FORMULARY DRUG (Roflumilast [Daliresp] 500 MCG Tablet) PO SCH (07:56)
[2024-03-27] MEDS: SERTRALINE 100 MG TAB PO SCH (07:56)
[2024-03-27] MEDS: FAMOTIDINE 20 MG TAB PO SCH (07:56)
[2024-03-27] MEDS: amLODIPine 2.5 MG TAB PO SCH (07:56)
[2024-03-27] MEDS: FUROSEMIDE 10 MG/ML 4 ML VIAL IV SCH (07:59)
[2024-03-27 08:05] LABS: Glucose,Whole Blood 66 mg/dL (70-110)
[2024-03-27] MEDS: DEXTROSE 50% SYRINGE 50 ML IVP PRN (08:09)
[2024-03-27 08:32] LABS: Glucose,Whole Blood 127 mg/dL (70-110)
[2024-03-27 09:16] VITALS: BP 105/58; PULSE 77
--- NOTE | 2024-03-27 14:30 | P.PN ---
Subjective Progress Note Date: 03/27/24 Hospital Course: Patient is a very pleasant 83-year-old female with end-stage congestive heart failure, advanced COPD with chronic hypoxic respiratory failure on 3 L at all times, severe pulmonary hypertension, chronic atrial fibrillation and stage IV chronic kidney disease. She presented to the emergency department from [facility] where patient was on hospice. Patient and family requested patient be transferred to the hospital for care and consult to [facility] as they would like to sign off with hospice group they are currently using. Patient and patient's niece at bedside. Patient is alert and oriented to person, place, time, and situation and is very adamant that she wants to be a DNR and admitted for comfort care only. Patient stated that she would like to continue with IV Lasix and requesting to be placed on comfort measures only with consult to [facility] hospice services. Patient reports pain throughout her lower back. Patient did undergo evaluation in the emergency department prior to admission for comfort care. Vital signs upon arrival show blood pressure 97/57, heart rate 72, respiratory rate 14, temp 97.4 F, and SpO2 of 96% on 4 L. An EKG was completed showing atrial fibrillation with a controlled ventricular rate of 78 bpm. Chest x-ray revealed cardiomegaly and pulmonary vascular congestion with bilateral pleural effusions consistent with congestive heart failure. Labs were completed and reviewed. CBC showing stable normocytic anemia with hemoglobin of 10.5. Coagulation profile normal findings. BMP revealing hyperkalemia with potassium of 5.6, hyperchloremia with chloride of 109, hypocarbia with bicarb of 17 and elevated anion gap of 16 with acute kidney injury on stage IV chronic kidney disease with BUN of 93, creatinine of 4.74, and GFR of 8 with baseline creatinine around 2. Blood glucose was 30. Liver profile revealed elevated AST of 39 and ALT of 181. Troponin was 0.021. proBNP was 7660. Patient admitted under our services with consultation to [facility]. Physical exam: Patient was seen and fully evaluated at bedside this morning. Patient appeared to be resting comfortably and not responsive at time of assessment. She has received a total of 2 mg of Dilaudid since arrival to our facility and did receive an amp of D50 secondary to hypoglycemia this morning with blood glucose of 66 increasing glucose to 127. Vital signs reviewed and stable. General: Mild to moderate distress noted secondary to increased work of breathing and patient's reports of pain. Derm: Skin warm and dry, normal coloration for ethnicity. Head: Atraumatic, normocephalic and symmetric. 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 Mouth: no lip lesions, mucus membranes moist Cardiovascular: Irregularly irregular rhythm, no noted murmur Lungs: respirations even, regular, and unlabored on 4 L O2 via nasal cannula. Lungs diffuse rhonchi throughout. 4 L O2. Abdominal: soft, nontender to palpation, no guarding, no appreciable organomegaly Ext: No gross muscle atrophy, bilateral lower extremity 1+ pitting edema, no contractures Neuro/psych: Patient nonresponsive this morning. Assessment and Plan of Care: Comfort care End-stage diastolic congestive heart failure Advanced COPD with chronic hypoxic respiratory failure Severe pulmonary hypertension Chronic atrial fibrillation Acute kidney injury on stage IV chronic kidney disease Hypoglycemia Hyperkalemia -DNR/DNI with comfort measures only -Consult placed to [facility] -Symptomatic care and pain management. -Order placed for Lasix 40 mg IVP as requested for patient for fluid overload secondary to end-stage CHF -Tylenol 650 mg every 4 hours as needed for fever and/or mild pain. -Artificial teardrops to bilateral eyes every 2 hours as needed for dry eyes. -Scopolamine patch. -Order placed for sublingual atropine drops and Robinul for excess secretions. -Zofran as needed for nausea and/or vomiting. -Dilaudid 1 mg IVP every 2 hours as needed for moderate to severe pain. -Ativan 1 mg IVP every 6 hours as needed for agitation or acute anxiety. -Patient also placed on [id number] glucose checks as needed and to be given D50 25 mg for blood glucose of 50-70 and 50 mg of D50 for blood glucose less than 50. -Continue with supplemental oxygen and may titrate for patient's comfort. -Turn and reposition patient every 2 hours as needed for comfort and for initiation of Byrnes catheter Data and imaging reviewed: Vital signs reviewed and stable. Blood pressure 105/58, heart rate 77, respiratory rate 18, and SpO2 of 89% on 4 L. CODE STATUS: DNR/DNI, comfort measures only Discussed with: Patient, patient's niece and nephew at bedside, database development project manager, and RN Patient was seen independently by Nurse Practitioner. This document was prepared using [employer] dictation software. Please allow for errors in air tank assembler while rare they do occur. Channing Rose, MOTHERCRAFT NURSE rendered care for this patient independently, reviewed the findings and plan as documented in the note above. I did not physically speak with or examine the patient on this date. Objective - Vital Signs Vital signs: Vital Signs Temp 97.4 F L 03/26/24 14:11 Pulse 61 03/27/24 01:45 Resp 18 03/27/24 01:45 BP 101/69 03/27/24 01:45 Pulse Ox 90 L 03/27/24 01:45 FiO2 Intake & Output 03/26/24 03/27/24 03/27/24 18:59 06:59 18:59 Output Total 400 Balance -400 Weight 95.254 kg 106.5 kg Output: Urine 400 - Labs CBC & Chem 7: 03/26/24 15:16 03/26/24 15:16 Labs: Abnormal Lab Results - Last 24 Hours (Table) 03/26/24 03/26/24 03/27/24 Range/Units 15:16 15:16 08:04 RBC 3.63 L (3.80-5.40) m/uL Hgb 10.5 L (11.4-16.0) gm/dL MCHC 30.2 L (31.0-37.0) g/dL RDW 16.8 H (11.5-15.5) % Potassium 5.6 H (3.5-5.1) mmol/L Chloride 109 H (98-107) mmol/L Carbon Dioxide 17 L (22-30) mmol/L BUN 93 H (7-17) mg/dL Creatinine 4.74 H (0.52-1.04) mg/dL Glucose 30 L* (74-99) mg/dL POC Glucose (mg/dL) 66 L (70-110) mg/dL Magnesium 2.6 H (1.6-2.3) mg/dL AST 39 H (14-36) U/L Alkaline Phosphatase 181 H (38-126) U/L
--- NOTE | 2024-03-27 18:45 | P.DS ---
Providers Date of admission: 03/26/24 16:07 Expected date of discharge: 03/27/24 Attending physician: Uzma Sneed DO Primary care physician: Stu Ring MD Hospital Course: Patient . Time of was pronounced on 03/27/2024 at 3:45 PM. 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 She presented to the emergency department from [facility] where patient was on hospice. Patient and family requested patient be transferred to the hospital for care and consult to [facility] hospice as they would like to sign off with hospice group they are currently using. Patient and patient's niece at bedside. Patient is alert and oriented to person, place, time, and situation and is very adamant that she wants to be a DNR and admitted for comfort care only. Patient stated that she would like to continue with IV Lasix and requesting to be placed on comfort measures only with consult to [facility] hospice services. Patient reports pain throughout her lower back. Patient did undergo evaluation in the emergency department prior to admission for comfort care. Vital signs upon arrival show blood pressure 97/57, heart rate 72, respiratory rate 14, temp 97.4 F, and SpO2 of 96% on 4 L. An EKG was completed showing atrial fibrillation with a controlled ventricular rate of 78 bpm. Chest x-ray revealed cardiomegaly and pulmonary vascular congestion with bilateral pleural effusions consistent with congestive heart failure. Labs were completed and reviewed. CBC showing stable normocytic anemia with hemoglobin of 10.5. Coagulation profile normal findings. BMP revealing hyperkalemia with potassium of 5.6, hyperchloremia with chloride of 109, hypocarbia with bicarb of 17 and elevated anion gap of 16 with acute kidney injury on stage IV chronic kidney disease with BUN of 93, creatinine of 4.74, and GFR of 8 with baseline creatinine around 2. Blood glucose was 30. Liver profile revealed elevated AST of 39 and ALT of 181. Troponin was 0.021. proBNP was 7660. Patient admitted under our services with consultation to [facility]. Patient was placed on comfort measures. She peacefully with family at bedside and time of was pronounced at 3:45 PM. This document was prepared using [employer] dictation software. 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 Channing Rose NP rendered care for this patient independently, reviewed the findings and plan as documented in the note above. I did not physically speak with or examine the patient on this date. Plan - Discharge Summary Discharge Rx Participant: No New Discharge Prescriptions: No Action Roflumilast [Daliresp] 500 mcg PO DAILY@0800 Insulin Lispro [humaLOG Kwikpen] See Protocol SQ AC-TID Benzonatate [Tessalon Perle] 200 mg PO TID PRN PRN Reason: Cough Famotidine [Pepcid] 20 mg PO DAILY@0800 Loperamide HCl [Imodium A-D] 2 - 4 mg PO Q8H PRN PRN Reason: Diarrhea hydrOXYzine HCL [Atarax] 50 mg PO DAILY PRN PRN Reason: Severe Anxiety Sertraline [Zoloft] 100 mg PO DAILY@0800 bisacodyL [Dulcolax] 10 mg RECTAL DAILY PRN PRN Reason: Constipation Dapagliflozin Propanediol [Farxiga] 10 mg PO DAILY@0800 Ondansetron Odt [Zofran Odt] 4 mg PO Q8HR PRN PRN Reason: Nausea MORPHINE ORAL NONA CONC 20mg/mL [Roxanol Oral Soln Conc 20MG/ML] 5 mg PO Q3H PRN PRN Reason: Pain Vit C/E/Zn/Coppr/Lutein/Zeaxan [Preservision Areds 2 Softgel] 1 cap PO BID@0800,2000 Acetaminophen [Tylenol] 650 mg PO Q4H PRN PRN Reason: Pain Insulin Glargine,Hum.rec.anlog [Lantus Solostar Pen] 22 units SQ HS@2000 Ipratropium-Albuterol Nebulize [Duoneb 0.5 mg-3 mg/3 ml Soln] 3 ml INHALATION RT-QID Albuterol Sulfate [Albuterol Sulfate Hfa] 2 puff INHALATION RT-Q6H PRN PRN Reason: Shortness Of Breath amLODIPine [Norvasc] 2.5 mg PO DAILY@0800 Ammonium Lactate Lotion [Lac-Hydrin 12% Lotion] 1 applic TOPICAL BID@0800,1999 LORazepam [Ativan] 0.5 mg PO Q6H PRN PRN Reason: Anxiety Menthol-Zinc Oxide Oint [Calmoseptine Ointment] 1 applic TOPICAL QID PRN PRN Reason: Skin Irritation Bumetanide [BUMEX] 2 mg PO DAILY@0800 QUEtiapine [SEROquel] 50 mg PO HS PRN PRN Reason: INSOMNIA, AGITATION Nystatin 100,000 Unit/gm Powd [Mycostatin Powder] 1 applic TOPICAL DAILY PRN PRN Reason: Skin Irritation Melatonin 10 mg PO HS PRN PRN Reason: Insomnia Nystatin 100,000 Unit/gm Powd [Mycostatin Powder] 1 applic TOPICAL DAILY@0800 Metoprolol Tartrate [Lopressor] 75 mg PO TID@0800,1400,1999 Lidocaine 5% Patch [Lidoderm] 1 patch TOPICAL HS@1999 LORazepam [Ativan] 0.5 mg PO HS@1999 Levothyroxine Sodium [Synthroid] 100 mcg PO DAILY@0700 Latanoprost [Latanoprost 0.005%] 1 drop BOTH EYES HS@1999 HYDROcodone/APAP 5-325MG [[place] 5-325] 1 tab PO BID@0800,1999 Sennosides/Docusate Sodium [Senna Plus 8.6-50 mg Tablet] 1 tab PO DAILY PRN PRN Reason: Constipation Discharge Medication List Roflumilast [Daliresp] 500 mcg PO DAILY@0800 01/28/21 [History] Ipratropium-Albuterol Nebulize [Duoneb 0.5 mg-3 mg/3 ml Soln] 3 ml INHALATION RT-QID 09/03/21 [History] Insulin Lispro [humaLOG Kwikpen] See Protocol SQ AC-TID 07/23/22 [History] Albuterol Sulfate [Albuterol Sulfate Hfa] 2 puff INHALATION RT-Q6H PRN 06/06/23 [History] Ammonium Lactate Lotion [Lac-Hydrin 12% Lotion] 1 applic TOPICAL BID@0800,199906/06/23 [History] Benzonatate [Tessalon Perle] 200 mg PO TID PRN 06/06/23 [History] Famotidine [Pepcid] 20 mg PO DAILY@79906/06/23 [History] Loperamide HCl [Imodium A-D] 2 - 4 mg PO Q8H PRN 06/06/23 [History] amLODIPine [Norvasc] 2.5 mg PO DAILY@79906/06/23 [History] hydrOXYzine HCL [Atarax] 50 mg PO DAILY PRN 08/29/23 [History] Sertraline [Zoloft] 100 mg PO DAILY@79902/16/24 [History] Acetaminophen [Tylenol] 650 mg PO Q4H PRN 03/26/24 [History] Bumetanide [BUMEX] 2 mg PO DAILY@79903/26/24 [History] Dapagliflozin Propanediol [Farxiga] 10 mg PO DAILY@79903/26/24 [History] HYDROcodone/APAP 5-325MG [[place] 5-325] 1 tab PO BID@0800,199903/26/24 [History] Insulin Glargine,Hum.rec.anlog [Lantus Solostar Pen] 22 units SQ HS@199903/26/24 [History] LORazepam [Ativan] 0.5 mg PO HS@199903/26/24 [History] LORazepam [Ativan] 0.5 mg PO Q6H PRN 03/26/24 [History] Latanoprost [Latanoprost 0.005%] 1 drop BOTH EYES HS@199903/26/24 [History] Levothyroxine Sodium [Synthroid] 100 mcg PO DAILY@69903/26/24 [History] Lidocaine 5% Patch [Lidoderm] 1 patch TOPICAL HS@199903/26/24 [History] MORPHINE ORAL NONA CONC 20mg/mL [Roxanol Oral Soln Conc 20MG/ML] 5 mg PO Q3H PRN 03/26/24 [History] Melatonin 10 mg PO HS PRN 03/26/24 [History] Menthol-Zinc Oxide Oint [Calmoseptine Ointment] 1 applic TOPICAL QID PRN 03/26/24 [History] Metoprolol Tartrate [Lopressor] 75 mg PO TID@0800,1400,199903/26/24 [History] Nystatin 100,000 Unit/gm Powd [Mycostatin Powder] 1 applic TOPICAL DAILY PRN 03/26/24 [History] Nystatin 100,000 Unit/gm Powd [Mycostatin Powder] 1 applic TOPICAL DAILY@0800 03/26/24 [History] Ondansetron Odt [Zofran Odt] 4 mg PO Q8HR PRN 03/26/24 [History] QUEtiapine [SEROquel] 50 mg PO HS PRN 03/26/24 [History] Sennosides/Docusate Sodium [Senna Plus 8.6-50 mg Tablet] 1 tab PO DAILY PRN 03/26/24 [History] Vit C/E/Zn/Coppr/Lutein/Zeaxan [Preservision Areds 2 Softgel] 1 cap PO BID@0800,199903/26/24 [History] bisacodyL [Dulcolax] 10 mg RECTAL DAILY PRN 03/26/24 [History] Follow up Appointment(s)/Referral(s): Stu Ring MD [Primary Care Provider] - 1-2 days Discharge Disposition: - Preliminary Cause of Preliminary Cause of : end stage heart failure with stage IV renal failure and end stage COPD
== END 2024-03-27 17:46 | disposition expired | DRG 951 ==
LOC: EC 14:05 → 3SCARD 16:07 → 5NMEDONC 18:47
PROVIDERS: ADMIT Internal Medicine; ATTEND Internal Medicine
DX: Z51.5 Encounter for palliative care (principal); N18.4 Chronic kidney disease, stage 4 (severe); N17.9 Acute kidney failure, unspecified; J96.11 Chronic respiratory failure with hypoxia; J44.0 Chronic obstructive pulmonary disease with (acute) lower respiratory infection; I50.30 Unspecified diastolic (congestive) heart failure; I48.20 Chronic atrial fibrillation, unspecified; I13.0 Hypertensive heart and chronic kidney disease with heart failure and stage 1 through stage 4 chronic kidney disease, or unspecified chronic kidney disease; Z66 Do not resuscitate; I50.84 End stage heart failure; I27.20 Pulmonary hypertension, unspecified; H54.7 Unspecified visual loss; G40.909 Epilepsy, unspecified, not intractable, without status epilepticus; F41.9 Anxiety disorder, unspecified; F32.A Depression, unspecified; E87.5 Hyperkalemia; E78.5 Hyperlipidemia, unspecified; D63.1 Anemia in chronic kidney disease; E16.2 Hypoglycemia, unspecified; Z79.01 Long term (current) use of anticoagulants; Z79.4 Long term (current) use of insulin; Z79.84 Long term (current) use of oral hypoglycemic drugs; Z79.890 Hormone replacement therapy; Z79.899 Other long term (current) drug therapy; Z85.3 Personal history of malignant neoplasm of breast; Z87.891 Personal history of nicotine dependence
CPT/HCPCS: 36415; 71045; 80053; 83605; 83735; 83880; 84484; 85025; 85610; 85730; 93005; 96374; 96375; 99285